=== PATIENT | female | born 1955 | race Caucasian/White ===

== ENCOUNTER 2020-12-25 09:52 | Emergency (ER) | payer MEDICARE, SELFPAY ==
[2020-12-25 10:23] VITALS: BP 129/76; PULSE 72; RESP 16; TEMP 36.6; O2SAT 99
--- NOTE | 2020-12-25 10:42 | ED.URI ---
HPI - URI/Sore Throat General Chief Complaint: Upper Respiratory Infection Stated Complaint: Cough/Tightness in Chest/Runny Nose Time Seen by Provider: 12/25/20 10:42 Source: patient Mode of arrival: ambulatory Limitations: no limitations History of Present Illness HPI Narrative: Christy Golden is a 65 yo female with a PMH of GERD, depression,IBS, HTN, anxiety, who comes to [facility] with a runny nose and congestion, coughing x4 days. States he wanted to be evaluated for Covid and she called to her primary care office Related Data Home Medications Medication Instructions Recorded Confirmed benztropine 0.5 mg PO DAILY 12/25/20 12/25/20 buspirone 5 mg PO DAILY 12/25/20 12/25/20 citalopram 10 mg PO DAILY 12/25/20 12/25/20 citalopram 40 mg PO DAILY 12/25/20 12/25/20 esomeprazole magnesium 20 mg PO DAILY 12/25/20 12/25/20 hydrocodone-acetaminophen 7.5 tablet PO DIRECTED PRN 12/25/20 12/25/20 linaclotide [Linzess] 145 mcg PO DAILY 12/25/20 12/25/20 meloxicam 7.5 mg PO DAILY 12/25/20 12/25/20 propranolol 20 mg PO DAILY 12/25/20 12/25/20 risperidone 1 mg PO DAILY 12/25/20 12/25/20 topiramate 50 mg PO DAILY 12/25/20 12/25/20 trazodone 100 mg PO DAILY 12/25/20 12/25/20 Allergies Allergy/AdvReac Type Severity Reaction Status Date / Time No Known Drug Allergies Allergy Verified 03/28/13 15:19 Review of Systems Review of Systems: Narrative: CONSTITUTIONAL: Denies fever, chills, sweats. EYES: Denies visual changes, redness, discharge. ENT: has rhinorrhea, has congestion, has sore throat, no otalgia. CARDIOVASCULAR: Denies chest pain, palpitations, edema. RESPIRATORY: Denies dyspnea, wheezing, cough GASTROINTESTINAL: Denies abdominal pain, nausea, vomiting, diarrhea. GENITOURINARY: Denies dysuria, hematuria, abnormal discharge SKIN: Denies rash or itching. NEUROLOGIC: Denies numbness, or focal weakness. PSYCHIATRIC: Denies anxiety or depression. PMFSH Past Medical History Medical History Anxiety Depression Hypertension IBS (irritable bowel syndrome) PTSD (post-traumatic stress disorder) Family History Family History Mother Family history of chronic obstructive pulmonary disease Father Family history of lung cancer Social History Social History (Updated 12/25/20 @ 10:53 by Liz Ulloa CNP) Smoking status: Former smoker Alcohol intake: never Gender identity (if verbalized by the patient): Female Comments At time of signature, I agree with nursing past medical, surgical, social and family history. There is no relevant family history pertinent to the presenting complaint. Exam Narrative: Exam Narrative: GENERAL: This is a well-nourished, well-developed patient, in mild distress. HEAD: normocephalic, atraumatic. EYES: Sclera clear/white. Vision is grossly intact. EARS: External ears normal, auditory canals clear and without drainage, TMs normal without perforation. Hearing grossly intact. NOSE: External nose normal with nasal discharge, mild erythema, nares without red, has rhinorrhea. THROAT: Mucous membranes moist, posterior pharynx erythema with no exudate NECK: Neck supple, non-tender CARDIOVASCULAR: Regular rate and rhythm without murmurs, gallops, or rubs. RESPIRATORY: Clear to auscultation. Breath sounds equal bilaterally. No wheezes, rales, or rhonchi. GASTROINTESTINAL: Abdomen soft, non-tender, SKIN: warm, intact with no suspicious lesions or rash, good texture and turgor. NEURO: awake, alert, and oriented to person, place and time. There were no obvious focal neurologic abnormalities. Steady gait;Fine Bilateral tremor EXTREMITIES: Normal range of motion. BACK: Nontender without deformity Course Course Emergency Course: Patient comes here for assessment of congestion sore throat for dwindles noticed x4 days Rapid Covid test is negative Covid for PCR sent Patient advised to jasmin
[2020-12-26 08:27] LABS: SARS-CoV-2 RNA PCR Negative
== END 2020-12-25 11:04 | disposition home or self-care (01) ==
PROVIDERS: Emergency Provider Nurse Practitioner; PCP Nurse Practitioner Family
DX: B34.9 Viral infection, unspecified (principal); Z20.822 Contact with and (suspected) exposure to COVID-19; F41.9 Anxiety disorder, unspecified; F32.9 Major depressive disorder, single episode, unspecified; F43.10 Post-traumatic stress disorder, unspecified; K21.9 Gastro-esophageal reflux disease without esophagitis; I10 Essential (primary) hypertension
CPT/HCPCS: 87426; 99203; C9803; G0463; U0003; U0005

== ENCOUNTER 2021-06-23 13:49 | Emergency (ER) | payer MEDICARE, SELFPAY | END 2021-06-23 13:50 | disposition left against medical advice (07) | LOC: EXPBETH 13:52 | PROVIDERS: Emergency Provider Nurse Practitioner; PCP Nurse Practitioner Family | DX: Z53.21 Procedure and treatment not carried out due to patient leaving prior to being seen by health care provider (principal) | CPT/HCPCS: 99199 ==

== ENCOUNTER 2022-08-24 14:37 | Emergency (ER) | payer MEDICARE, SELFPAY ==
[2022-08-24 14:52] VITALS: BP 109/73; PULSE 79; RESP 18; TEMP 37; O2SAT 99
--- NOTE | 2022-08-24 15:17 | ED.URI ---
HPI - URI/Sore Throat General Chief Complaint: Upper Respiratory Infection Stated Complaint: Chest Congestion/Cough Time Seen by Provider: 08/24/22 15:17 Source: patient Mode of arrival: ambulatory Limitations: no limitations History of Present Illness HPI Narrative: 67 y/o female presented for c/o cough and congestion for one week. Endorses 'burning' sensation in mid upper chest, worse with cough. Endorses occasional headache. Denies sob, n/v/d/f/c. Pt smokes 1/2ppd. hx copd. Not taking anything for symptoms. She is taking scheduled inhaler for copd. Related Data Home Medications Medication Instructions Recorded Confirmed benztropine 0.5 mg tablet 0.5 mg PO DAILY 12/25/20 08/24/22 buspirone 5 mg tablet 5 mg PO DAILY 12/25/20 08/24/22 citalopram 10 mg tablet 10 mg PO DAILY 12/25/20 08/24/22 citalopram 40 mg tablet 40 mg PO DAILY 12/25/20 08/24/22 esomeprazole magnesium 20 mg 20 mg PO DAILY 12/25/20 08/24/22 capsule,delayed release hydrocodone 7.5 mg-acetaminophen 7.5 tablet PO DIRECTED PRN Pain 12/25/20 08/24/22 325 mg tablet linaclotide 145 mcg capsule 145 mcg PO DAILY 12/25/20 08/24/22 (Linzess) meloxicam 7.5 mg tablet 7.5 mg PO DAILY 12/25/20 08/24/22 propranolol 20 mg tablet 20 mg PO DAILY 12/25/20 08/24/22 risperidone 1 mg tablet 1 mg PO DAILY 12/25/20 08/24/22 topiramate 50 mg tablet 50 mg PO DAILY 12/25/20 08/24/22 trazodone 100 mg tablet 100 mg PO DAILY 12/25/20 08/24/22 Allergies Allergy/AdvReac Type Severity Reaction Status Date / Time iron Allergy Unknown Verified 08/24/22 14:51 Review of Systems Review of Systems: CONSTITUTIONAL: Denies body aches, fever, chills, or sweats. ENT: Denies sore throat, or otalgia. CARDIOVASCULAR: Denies chest pain, palpitations, or edema. RESPIRATORY: Reports cough, denies sob, wheezing. MUSCULOSKELETAL: Denies back pain, joint pain, or myalgia. NEUROLOGIC: Denies numbness, tingling, or weakness. All systems reviewed & are unremarkable except as noted in HPI and below PMFSH Past Medical History Medical History Anxiety Depression Hypertension IBS (irritable bowel syndrome) PTSD (post-traumatic stress disorder) Family History Family History Mother Family history of chronic obstructive pulmonary disease Father Family history of lung cancer Social History Social History Smoking status: Former smoker Alcohol intake: never Gender identity (if verbalized by the patient): Female Comments At time of signature, I have reviewed and agree with nursing past medical, surgical, social and family history unless otherwise noted. Please see nursing chart for further information. There is no relevant family history pertinent to the presenting complaint Exam Narrative: GENERAL: Well-appearing EYES: EOMI. No redness or drainage. Conjunctivae normal. ENT: Mucous membranes pink and moist. No rhinorrhea. TMs normal bilaterally. Throat normal. Uvula midline. CHEST: No respiratory distress. diminished to all nguyen. Frequent dry deep nonproductive cough HEART: Regular rate and rhythm. SKIN: Warm, dry, no rash. Capillary refill normal. NEURO: Alert and oriented x3. Gait steady. Course Course Emergency Course: Patient is aware of diagnosis, understands and agrees to treatment plan. Anticipatory guidance given. Patient agrees to follow-up as directed and is aware of reasons to seek care at the emergency department. Portions of this record may have been created with voice recognition software Level of Care: Express Care Visit Vital Signs Vital signs: Vital Signs Temperature 98.6 F 08/24/22 14:52 Pulse Rate 79 08/24/22 14:52 Respiratory Rate 18 08/24/22 14:52 Blood Pressure 109/73 08/24/22 14:52 Pulse Oximetry 99 08/24/22 14:52 Oxygen Delivery Room Air
== END 2022-08-24 15:38 | disposition home or self-care (01) ==
PROVIDERS: Emergency Provider Nurse Practitioner Family; PCP Nurse Practitioner Family
DX: J40 Bronchitis, not specified as acute or chronic (principal); I10 Essential (primary) hypertension; F41.9 Anxiety disorder, unspecified; F32.A Depression, unspecified; J44.9 Chronic obstructive pulmonary disease, unspecified; F17.290 Nicotine dependence, other tobacco product, uncomplicated
CPT/HCPCS: 87804; 99213; G0463

== ENCOUNTER 2023-07-09 08:55 | Emergency (ER) | payer MEDICARE, SELFPAY ==
--- NOTE | ~2023-07-09 | XR_ITS ---
XR foot RT min 3V DATE: 07/09/2023 09:15 INDICATION: Fall down stairs. Third through fifth metacarpophalangeal joint pain TECHNIQUE: 4 views COMPARISON: None FINDINGS: There is mild to moderate osteoarthritic arthritis at the first metatarsophalangeal joint. Prominent plantar calcaneal enthesopathy. There is slight posterior calcaneal enthesopathy. No fracture or dislocation, periosteal reaction or bone destruction is detected. IMPRESSION: Calcaneal enthesopathy Osteoarthritis at first metatarsophalangeal joint No fracture or dislocation is detected Reviewed, dictated and finalized at location A.
[2023-07-09 09:05] VITALS: BP 117/62; PULSE 81; RESP 18; TEMP 36.7; O2SAT 100
--- NOTE | 2023-07-09 09:52 | ED.LOWEXIN ---
HPI - Extremity Injury (Lower) General Chief Complaint: Extremity Injury, Lower Stated Complaint: Right Foot Injury History of Present Illness HPI Narrative: Patient presents with an injury to her right foot. Patient states she missed a step and rolled her right foot and ankle. Pain across the top of her foot. No deformity no bruising no swelling noted. Related Data Home Medications Medication Instructions Recorded Confirmed benztropine 0.5 mg tablet 0.5 mg PO DAILY 12/25/20 07/09/23 buspirone 5 mg tablet 5 mg PO DAILY 12/25/20 07/09/23 citalopram 10 mg tablet 10 mg PO DAILY 12/25/20 07/09/23 citalopram 40 mg tablet 40 mg PO DAILY 12/25/20 07/09/23 esomeprazole magnesium 20 mg 20 mg PO DAILY 12/25/20 07/09/23 capsule,delayed release hydrocodone 7.5 mg-acetaminophen 7.5 tablet PO DIRECTED PRN Pain 12/25/20 07/09/23 325 mg tablet linaclotide 145 mcg capsule 145 mcg PO DAILY 12/25/20 07/09/23 (Linzess) meloxicam 7.5 mg tablet 7.5 mg PO DAILY 12/25/20 07/09/23 propranolol 20 mg tablet 20 mg PO DAILY 12/25/20 07/09/23 risperidone 1 mg tablet 1 mg PO DAILY 12/25/20 07/09/23 topiramate 50 mg tablet 50 mg PO DAILY 12/25/20 07/09/23 trazodone 100 mg tablet 100 mg PO DAILY 12/25/20 07/09/23 atogepant 30 mg tablet (Qulipta) 60 mg PO DAILY 07/09/23 07/09/23 hydroxyzine HCl 50 mg tablet 50 mg PO HS 07/09/23 07/09/23 Allergies Allergy/AdvReac Type Severity Reaction Status Date / Time iron Allergy Unknown Verified 07/09/23 09:04 Review of Systems Review of Systems: CONSTITUTIONAL: Denies fever, chills, or sweats. EYES: Denies visual changes, redness, or discharge. ENT: Denies rhinorrhea, congestion, sore throat, or otalgia. CARDIOVASCULAR: Denies chest pain, palpitations, or edema. RESPIRATORY: Denies cough or dyspnea. GASTROINTESTINAL: Denies abdominal pain, nausea, vomiting, or diarrhea. GENITOURINARY: Denies dysuria or hematuria. SKIN: Denies rash or itching. MUSCULOSKELETAL: Denies back pain, joint pain, or myalgia. NEUROLOGIC: Denies headache, numbness, or weakness. PSYCHIATRIC: Denies anxiety or depression. [facility] Past Medical History Medical History Anxiety Depression Hypertension IBS (irritable bowel syndrome) PTSD (post-traumatic stress disorder) Family History Family History Mother Family history of chronic obstructive pulmonary disease Father Family history of lung cancer Social History Social History Smoking status: Former smoker Alcohol intake: never Gender identity (if verbalized by the patient): Female Comments At time of signature, agree with nursing past medical, surgical, social and family history. There is no relevant family history pertinent to the presenting complaint Exam Narrative: GENERAL: Well-appearing, well-nourished, and in no acute distress. HEAD: Normocephalic, atraumatic. EYES: PERRLA and EOMI. ENT: Nares clear, no rhinorrhea or epistaxis. Mucous membranes moist. NECK: Supple. CHEST: Clear to auscultation. No respiratory distress. HEART: Regular rate and rhythm. No murmur heard. Normal peripheral pulses. ABDOMEN: Soft, nontender, nondistended, normal active bowel sounds. EXTREMITIES: Normal range of motion. No edema. Foot exam ANKLE EXAM pain to the lateral side of right foot and across the top of the foot. SKIN INTACT. NORMAL DP PULSE, NORMAL CAP REFILL. NORMAL SENSATION. SKIN: Warm, dry, no rash. NEURO: No focal deficits. Alert and oriented x3. [place] Coma Scale Eye Opening: Spontaneous 4 [place] Coma Scale Motor: Obeys Commands 6 [place] Coma Scale Verbal: Oriented 5 [place] Coma Scale Total 15 Course Course Level of Care: Express Care Visit Vital Signs Vital signs: Vital Signs Temperature 36.7 C 07/09/23 09:05 Pulse Rate 81 07/09/23 09:05 Respiratory Rate 18 09/
== END 2023-07-09 10:00 | disposition home or self-care (01) ==
PROVIDERS: Emergency Provider Nurse Practitioner Family
DX: S90.31XA Contusion of right foot, initial encounter (principal); X50.9XXA Other and unspecified overexertion or strenuous movements or postures, initial encounter; Z87.891 Personal history of nicotine dependence; I10 Essential (primary) hypertension; F41.9 Anxiety disorder, unspecified; F32.A Depression, unspecified; F43.10 Post-traumatic stress disorder, unspecified
CPT/HCPCS: 73630; 99213; G0463

== ENCOUNTER 2024-08-25 11:32 | Emergency (ER) | payer MEDICARE, SELFPAY ==
[2024-08-25 11:40] VITALS: BP 110/76; PULSE 96; RESP 24; TEMP 37; O2SAT 98
--- NOTE | 2024-08-25 11:52 | ED.URI ---
HPI - URI/Sore Throat General Chief Complaint: Upper Respiratory Infection Stated Complaint: cough/headache/throat/ears/eyes Time Seen by Provider: 08/25/24 11:53 Source: patient, RN notes reviewed and old records reviewed Mode of arrival: ambulatory Limitations: no limitations History of Present Illness HPI Narrative: 69year old female who presents to [facility] care with complaints of 3 day history of cough, headache body aches,ear pain, eye pain and throat pain which she thinks is related to cough. States that she has dnoted some shortness of breath and wheezing has history of COPD. Patient reports that she had some nasal congestion with drainage at start of symptoms. Patient reports that she had 100F temp this morning has taken Tylenol and has been using her inhaler of Albuterol.Patient reports that she has been exposed to someone who was recently diagnosed with Whooping cough.Patient is poor historian is on numerous medications. MD elicited complaint: cough, sore throat, rhinorrhea, nasal congestion and other (SOB, headache ear pain, eye pain, and body aches.) Pertinent past history: COPD Onset (ago): day(s) (3) Severity: moderate Able to tolerate fluids by mouth: Yes Treatments prior to arrival: acetaminophen and other (Albuterol inhaler) Related Data Home Medications Medication Instructions Recorded Confirmed benztropine 0.5 mg tablet 0.5 mg PO DAILY 12/25/20 08/25/24 citalopram 40 mg tablet 40 mg PO DAILY 12/25/20 08/25/24 esomeprazole magnesium 20 mg 20 mg PO DAILY 12/25/20 08/25/24 capsule,delayed release hydrocodone 7.5 mg-acetaminophen 7.5 tablet PO DIRECTED PRN Pain 12/25/20 08/25/24 325 mg tablet linaclotide 145 mcg capsule 145 mcg PO DAILY 12/25/20 08/25/24 (Linzess) meloxicam 7.5 mg tablet 7.5 mg PO DAILY 12/25/20 08/25/24 propranolol 20 mg tablet 20 mg PO DAILY 12/25/20 08/25/24 topiramate 50 mg tablet 50 mg PO DAILY 12/25/20 08/25/24 hydroxyzine HCl 50 mg tablet 50 mg PO HS 07/09/23 08/25/24 albuterol sulfate 90 mcg/actuation See Rx Instructions .Route 08/25/24 08/25/24 aerosol inhaler .COMPLEX PRN sob atogepant 60 mg tablet (Qulipta) 60 mg PO DAILY 08/25/24 08/25/24 bupropion HCl 100 mg tablet 200 mg PO DAILY 08/25/24 08/25/24 buspirone 30 mg tablet 30 mg PO DAILY 08/25/24 08/25/24 celecoxib 200 mg capsule See Rx Instructions .Route .COMPLEX 08/25/24 08/25/24 dicyclomine 20 mg tablet 20 mg PO BID 08/25/24 08/25/24 donepezil 10 mg tablet 10 mg PO DAILY 08/25/24 08/25/24 pantoprazole 40 mg tablet,delayed 40 mg PO DAILY 08/25/24 08/25/24 release primidone 250 mg tablet 250 mg PO HS 08/25/24 08/25/24 risperidone 2 mg tablet See Rx Instructions .Route .COMPLEX 08/25/24 08/25/24 trazodone 150 mg tablet 150 mg PO DAILY 08/25/24 08/25/24 Allergies Allergy/AdvReac Type Severity Reaction Status Date / Time iron Allergy Unknown Verified 07/09/23 09:04 Review of Systems Review of Systems: CONSTITUTIONAL: Reports malaise, chills, sweats, or fever. EYES: Denies visual changes, redness, or discharge. ENT: Reports rhinorrhea, congestion, sinus pain, otalgia and mild sore throat. CARDIOVASCULAR: Denies chest pain, palpitations, or edema. RESPIRATORY: Reports cough.? Reports dyspnea. GASTROINTESTINAL: Denies abdominal pain, nausea, vomiting, diarrhea SKIN: Denies rash or itching. MUSCULOSKELETAL: Reports myalgia. NEUROLOGIC: Reports headache. All systems reviewed & are unremarkable except as noted in HPI and below PMFSH Past Medical History Medical History (Updated 08/27/24 @ 15:59 by Estefani Harding NP) Anxiety Depression Essential tremor Hypertension IBS (irritable bowel syndrome) Insomnia Kidney stones Migraine PTSD (post-traumatic stress disorder) Surgical History Surgical History (Updated 08/27/24 @ 15:56 by Estefani Harding NP) H/O shoulder surgery H/O Spinal surgery History of cholecystectomy Family History Family History Mother Family history of chronic obstructive pulmonary disease Father Family history of lung cancer Social History Social History (Updated 08/27/24 @ 16:01 by Estefani Harding NP) Smoking packs per day: 1 Smoking cigarettes per day: 20.0 Years smoked: 30 Smoking pack-years: 30.00 Smoking status: Former smoker Tobacco type: cigarettes Additional smoking assessment comments: Reports quit 2 month ago Alcohol intake: never Substance use type: opiates Other substance usage details: pain control Living arrangements: with family Gender identity (if verbalized by the patient): Female Comments At time of signature, agree with nursing past medical, surgical, social and family history. There is no relevant family history pertinent to the presenting complaint Exam Narrative: GENERAL: chronic ill -appearing, well-nourished, and in no acute distress. HEAD: Normocephalic EYES: PERRLA, conjunctivae clear ENT: Nares clear, turbinates edematous and erythematous, clear discharge, sinus pressure headache,. Mucous membranes moist. TM pearly saenz with dull light reflex bilaterally; no tragal tenderness. Oropharynx erythematous without lesions. Tonsils not enlarged and without exudate, no drooling, no hoarseness, no trismus, uvula midline, post nasal drainage. NECK: Supple. No lymphadenopathy CHEST: scattered wheezing on auscultation,breath sounds equal. positive wheezing, rhonchi, rales, or stridor. No respiratory distress, speaks in full sentences.cough, SAO2 98% on room air HEART: Regular rate and rhythm. No murmur heard. SKIN: Warm, dry, no rash. NEURO: Alert and oriented x3. PSYCH: Normal mood and affect Course Course Emergency Course: Patient is aware of diagnosis, understands and agrees to treatment plan.? Anticipatory guidance given.? Patient agrees to follow-up as directed and is aware of reasons to seek care at the emergency department. Portions of this record may have been created with voice recognition software Level of Care: Express Care Visit Vital Signs Vital signs: Vital Signs Temperature 37.0 C 08/25/24 11:40 Pulse Rate 96 08/25/24 11:40 Respiratory Rate 24 H 08/25/24 11:40 Blood Pressure 110/76 08/25/24 11:40 Pulse Oximetry 98 08/25/24 11:40 Oxygen Delivery Room Air 08/25/24 11:40 Temperature 37.0 C 08/25/24 11:59 Pulse Rate 96 08/25/24 11:59 Respiratory Rate 24 H 08/25/24 11:59 Blood Pressure 110/76 08/25/24 11:59 Pulse Oximetry 98 08/25/24 11:59 Oxygen Delivery Room Air 08/25/24 11:59 Reviewed MDM - URI/Sore Throat MDM Narrative Medical decision making narrative: Differential diagnosis considered: Bynum virus, strep pharyngitis, allergic rhinitis, upper respiratory tract infection, sinusitis, rhinosinusitis, nasopharyngitis. viral pharyngitis, otitis media, otitis externa, pneumonia, bronchitis, viral cough syndrome, viral syndrome, and influenza.? Exam findings show no acute concerns or changes; patient is non-toxic appearing and is in no distress.? Patient is appropriate for outpatient treatment and follow-up. Differential Diagnosis Differential diagnosis: Likely upper respiratory infection, viral infection, bronchitis, influenza and other (cough, COPD, COVID) Medical Records Attestation: I reviewed the patient's medical records. Lab Data Attestation: I reviewed the patient's lab results. Lab results narrative: COVID antigen negative, Influenza A negative, Influenza B negative Labs: Lab Results 08/25/24 Range/Units 11:54 POC Influenza A Ag Negative (Negative) POC Influenza B Ag Negative (Negative) POC SARS CoV-2 Ag Negative (Negative) reviewed Critical Care Time Critical Care Time Critical Care Time: No Discharge Plan Discharge Clinical Impression: Bronchitis Patient Disposition: Home, Self-Care Condition: Stable Instructions: Antibiotic Form, Acute Bronchitis (ED) Additional Instructions: Increase fluids especially juices and water [id number] cough and cold medicine of your choice for your symptoms Zyrtec,Claritin, or Dominique daily Continue your inhaler/nebulizer as directed Steroids as directed--take with food heat to the face 20-30 minutes 4-6 times a day for pain Salt water gargles, throat lozenges or throat sprays as desired Antibiotic as directed--finished the medication Tylenol or Ibuprofen for any fever or pain Prescriptions: New prednisone 20 mg tablet 20 mg PO BID Qty: 10 0RF amoxicillin 500 mg tablet 500 mg PO Q12H Qty: 21 0RF No Action bupropion HCl 100 mg tablet 200 mg PO DAILY risperidone 2 mg tablet See Rx Instructions .ROUTE .COMPLEX Rx Instructions: as prescribed trazodone 150 mg tablet 150 mg PO DAILY buspirone 30 mg tablet 30 mg PO DAILY primidone 250 mg tablet 250 mg PO HS celecoxib 200 mg capsule See Rx Instructions .ROUTE .COMPLEX Rx Instructions: as prescribed albuterol sulfate 90 mcg/actuation HFA aerosol inhaler See Rx Instructions .ROUTE .COMPLEX PRN (Reason: sob) Rx Instructions: as prescribed Qulipta 60 mg tablet 60 mg PO DAILY dicyclomine 20 mg tablet 20 mg PO BID pantoprazole 40 mg tablet,delayed release (DR/EC) 40 mg PO DAILY donepezil 10 mg tablet 10 mg PO DAILY benztropine 0.5 mg tablet 0.5 mg PO DAILY citalopram 40 mg tablet 40 mg PO DAILY meloxicam 7.5 mg tablet 7.5 mg PO DAILY hydrocodone-acetaminophen 7.5-325 mg tablet 7.5 tablet PO DIRECTED PRN (Reason: Pain) propranolol 20 mg tablet 20 mg PO DAILY esomeprazole magnesium 20 mg capsule,delayed release(DR/EC) 20 mg PO DAILY topiramate 50 mg tablet 50 mg PO DAILY Linzess 145 mcg capsule 145 mcg PO DAILY hydroxyzine HCl 50 mg tablet 50 mg PO HS Follow-up/Referrals: PHYSICIAN NOT ON STAFF,NONSTAFF [Primary Care Provider] - Time of Disposition: 13:14 Quality [place] Coma Scale Eyes: Open Verbal: Oriented and Alert Motor: Follows Commands [place] Coma Total Score: 15
[2024-08-25 11:59] VITALS: BP 110/76; PULSE 96; RESP 24; TEMP 37; O2SAT 98
[2024-08-25 12:31] LABS: EDCOVIDSCREEN Negative (Negative); EDINFLUASCREEN Negative (Negative); EDINFLUBSCREEN Negative (Negative)
== END 2024-08-25 13:15 | disposition home or self-care (01) ==
PROVIDERS: Emergency Provider Registered Nurse
DX: J40 Bronchitis, not specified as acute or chronic (principal); Z20.822 Contact with and (suspected) exposure to COVID-19; J44.9 Chronic obstructive pulmonary disease, unspecified; I10 Essential (primary) hypertension; F41.9 Anxiety disorder, unspecified; F32.A Depression, unspecified; F43.10 Post-traumatic stress disorder, unspecified; Z87.891 Personal history of nicotine dependence
CPT/HCPCS: 87426; 87804; 99213; G0463

== ENCOUNTER 2024-12-17 12:18 | Emergency (ER) | payer MEDICARE, SELFPAY ==
--- NOTE | ~2024-12-17 | XR_ITS ---
EXAMINATION: XR sacrum coccyx min 2V DATE: 12/17/2024 12:57 INDICATION: Tailbone pain. Fall. TECHNIQUE: 3 views of the sacrum and coccyx were obtained. COMPARISON: None. FINDINGS: There is lumbar dextrocurvature. There are changes of anterior fusion procedure at L4-L5 wi th instrumentation. The sacroiliac joints are normal. IMPRESSION: 1. No fracture. Reviewed, dictated and finalized at location A. R SITE ASSESSMENT SPECIALIST IMPRESSION: 1. No fracture.
--- NOTE | ~2024-12-17 | XR_ITS ---
HISTORY: pain s/p fall COMPARISON: None TECHNIQUE: 3 views of the right ribs were performed along with a frontal view of the chest FINDINGS: No acute displaced fracture is appreciated. The cardiac mediastinal silhouette is unremarkable. The lungs are clear. Bone mineralization is age advanced IMPRESSION: No acute displaced right-sided rib fractures. The lungs are clear. Reviewed, dictated and finalized at location A. ENT TRANSPORTER
--- NOTE | ~2024-12-17 | XR_ITS ---
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 Superior lateral sclerosis of the bilateral femoral acetabular joint spaces are present consistent wi th osteoarthritis. Fixation hardware within the lower lumbar spine. Age advanced mineralization. IMPRESSION: Degenerative disease without acute fracture or dislocation Reviewed, dictated and finalized at location A. ESS CENTER ATTENDANT
[2024-12-17 12:29] VITALS: BP 132/77; PULSE 64; RESP 16; TEMP 36.7; O2SAT 99
--- NOTE | 2024-12-17 12:45 | PC.NURSE ---
PT with complaints of tailbone pain, mid back pain, left elbow pain and right rib pain. NO obvious injury observed. Pt moving slowly with position change.
--- NOTE | 2024-12-17 13:14 | ED.GENADULT ---
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 She slipped on a towel at home and fell down ten steps that are carpeted. She hit her head. No LOC. She is not on blood thinners. She now has skin tears to dorsal aspect of left hand. She reports pain in her right posterior ribs, right hip and coccyx. She rates her pain as 9/10. Denies loss of ROM. She has not taken any medication for her symptoms. She is up to date on tetanus. Related Data Home Medications ?Medication ?Instructions ?Recorded ?Confirmed ?Last Taken ?Type citalopram 40 mg tablet 40 mg PO DAILY 12/25/20 08/25/24 Unknown History linaclotide 145 mcg capsule 145 mcg PO DAILY 12/25/20 08/25/24 Unknown History (Linzess) propranolol 20 mg tablet 20 mg PO DAILY 12/25/20 08/25/24 Unknown History topiramate 50 mg tablet 50 mg PO DAILY 12/25/20 08/25/24 Unknown History hydroxyzine HCl 50 mg tablet 50 mg PO HS 07/09/23 08/25/24 Unknown History albuterol sulfate 90 mcg/actuation See Rx Instructions .Route 08/25/24 08/25/24 Unknown History aerosol inhaler .COMPLEX PRN sob atogepant 60 mg tablet (Qulipta) 60 mg PO DAILY 08/25/24 08/25/24 Unknown History bupropion HCl 100 mg tablet 200 mg PO DAILY 08/25/24 08/25/24 Unknown History buspirone 30 mg tablet 30 mg PO DAILY 08/25/24 08/25/24 Unknown History celecoxib 200 mg capsule See Rx Instructions .Route .COMPLEX 08/25/24 08/25/24 Unknown History dicyclomine 20 mg tablet 20 mg PO BID 08/25/24 08/25/24 Unknown History donepezil 10 mg tablet 10 mg PO DAILY 08/25/24 08/25/24 Unknown History pantoprazole 40 mg tablet,delayed 40 mg PO DAILY 08/25/24 08/25/24 Unknown History release primidone 250 mg tablet 250 mg PO HS 08/25/24 08/25/24 Unknown History risperidone 2 mg tablet See Rx Instructions .Route .COMPLEX 08/25/24 08/25/24 Unknown History trazodone 150 mg tablet 150 mg PO DAILY 08/25/24 08/25/24 Unknown History benzonatate 200 mg capsule mg PO 12/17/24 Unknown History budesonide-formoterol inhalation 12/17/24 Unknown History uwrxijjaqpt-rctgdheue-ulltcbsu inhalation 12/17/24 Unknown History lasmiditan 50 mg tablet (Reyvow) mg PO 12/17/24 Unknown History oxycodone-acetaminophen 5 mg-325 tablet 12/17/24 Unknown History mg tablet Allergies Allergy/AdvReac Type Severity Reaction Status Date / Time iron Allergy Unknown Verified 12/17/24 12:33 Review of Systems Review of Systems: CONSTITUTIONAL: Denies fever, chills, or sweats. EYES: Denies visual changes, redness, or discharge. ENT: Denies rhinorrhea, congestion, sore throat, or otalgia. CARDIOVASCULAR: Denies chest pain, palpitations, or edema. RESPIRATORY: Denies cough or dyspnea. GASTROINTESTINAL: Denies abdominal pain, nausea, vomiting, or diarrhea. GENITOURINARY: Denies dysuria or hematuria. SKIN: Reports skin tears to the left hand MUSCULOSKELETAL: Reports pain in coccyx, right hip, left elbow and right posterior ribs NEUROLOGIC: Denies headache, numbness, dizziness, or weakness. PSYCHIATRIC: Denies anxiety or depression. [facility] Past Medical History Medical History Essential tremor Insomnia Kidney stones Migraine IBS (irritable bowel syndrome) PTSD (post-traumatic stress disorder) Depression Anxiety Hypertension Surgical History Surgical History H/O Spinal surgery H/O shoulder surgery History of cholecystectomy Family History Family History Mother Family history of chronic obstructive pulmonary disease Father Family history of lung cancer Social History Social History Smoking packs per day: 1 Smoking cigarettes per day: 20.0 Years smoked: 30 Smoking pack-years: 30.00 Smoking status: Former smoker Tobacco type: cigarettes Additional smoking assessment comments: Reports quit 2 month ago Alcohol intake: never Substance use type: opiates Other substance usage details: pain control Living arrangements: with family Gender identity (if verbalized by the patient): Female Exam Narrative: GENERAL: Well-appearing, well-nourished, and in no acute distress. HEAD: Normocephalic, atraumatic. EYES: PERRLA and EOMI. ENT: Nares clear, no rhinorrhea or epistaxis. Mucous membranes moist. Oropharynx without tonsillar hypertrophy exudate or other lesions. Bilateral TMs pearly saenz nonbulging NECK: Supple. No adenopathy or masses. No carotid bruits or JVD CHEST: Clear to auscultation. No respiratory distress. No wheezes rales or rhonchi HEART: Regular rate and rhythm. No murmur heard. Normal peripheral pulses. ABDOMEN: Soft, nontender, nondistended, normal active bowel sounds. BACK: There is tenderness over the right posterior ribs and the coccyx. EXTREMITIES: Full range of motion of the left elbow. No crepitus or deformity. No point tenderness. There is tenderness over the right lateral hip SKIN: There to skin tears to the dorsal aspect of the left hand there approximately 2 cm in size NEURO: No focal deficits. Alert and oriented x3. PSYCH: Normal mood and affect. Course Course Emergency Course: This is a 69-year-old female who presented for evaluation after experiencing a fall just prior to arrival. X-rays were negative for fracture. Skin tears were cleaned and covered with dressing. Pt tolerated well. I recommended she follow up with primary provider and go to the ER for worsening symptoms. Pt in agreement with plan of care. Level of Care: Express Care Visit Vital Signs Vital signs: Vital Signs Temperature 36.7 C 12/17/24 12: Pulse Rate 64 12/17/24 12:29 Respiratory Rate 16 12/17/24 12: Blood Pressure 132/77 12/17/24 12:29 Pulse Oximetry 99 12/17/24 12:29 Oxygen Delivery Room Air 12/17/24 12: Temperature 36.7 C 12/17/24 12: Pulse Rate 64 12/17/24 12:29 Respiratory Rate 16 12/17/24 12: Blood Pressure 132/77 12/17/24 12:29 Pulse Oximetry 99 12/17/24 12:29 Oxygen Delivery Room Air 12/17/24 12:29 Medical Decision Making Vital Signs Vital Signs: Vital Signs Temperature 36.7 C 12/17/24 12:29 Pulse Rate 64 12/17/24 12:29 Respiratory Rate 16 12/17/24 12:29 Blood Pressure 132/77 12/17/24 12:29 Pulse Oximetry 99 12/17/24 12:29 Oxygen Delivery Room Air 12/17/24 12:29 Temperature 36.7 C 12/17/24 12:29 Pulse Rate 64 12/17/24 12:29 Respiratory Rate 16 12/17/24 12:29 Blood Pressure 132/77 12/17/24 12:29 Pulse Oximetry 99 12/17/24 12:29 Oxygen Delivery Room Air 12/17/24 12:29 Imaging Data Radiologist's impression: EXAMINATION: XR sacrum coccyx min 2V DATE: 12/17/2024 12:57 INDICATION: Tailbone pain. Fall. TECHNIQUE: 3 views of the sacrum and coccyx were obtained. COMPARISON: None. FINDINGS: There is lumbar dextrocurvature. There are changes of anterior fusion procedure at L4-L5 with instrumentation. The sacroiliac joints are normal. IMPRESSION: 1. No fracture. HISTORY: pain s/p fall COMPARISON: None TECHNIQUE: 3 views of the right ribs were performed along with a frontal view of the chest FINDINGS: No acute displaced fracture is appreciated. The cardiac mediastinal silhouette is unremarkable. The lungs are clear. Bone mineralization is age advanced IMPRESSION: No acute displaced right-sided rib fractures. The lungs are clear. 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 Superior lateral sclerosis of the bilateral femoral acetabular joint spaces are present consistent with osteoarthritis. Fixation hardware within the lower lumbar spine. Age advanced mineralization. IMPRESSION: Degenerative disease without acute fracture or dislocation Discharge Plan Discharge Clinical Impression: Contusion of rib, Coccyx contusion, Contusion of hip, right, Skin tear of left hand without complication Patient Disposition: Home, Self-Care Condition: Stable Instructions: Antibiotic Form, Contusion in Adults (ED), Skin Tear (ED), Fall Prevention (ED) Patient Language: Japanese Prescriptions: No Action bupropion HCl 100 mg tablet 200 mg PO DAILY risperidone 2 mg tablet See Rx Instructions .ROUTE .COMPLEX Rx Instructions: as prescribed trazodone 150 mg tablet 150 mg PO DAILY buspirone 30 mg tablet 30 mg PO DAILY primidone 250 mg tablet 250 mg PO HS celecoxib 200 mg capsule See Rx Instructions .ROUTE .COMPLEX Rx Instructions: as prescribed albuterol sulfate 90 mcg/actuation HFA aerosol inhaler See Rx Instructions .ROUTE .COMPLEX PRN (Reason: sob) Rx Instructions: as prescribed Qulipta 60 mg tablet 60 mg PO DAILY dicyclomine 20 mg tablet 20 mg PO BID pantoprazole 40 mg tablet,delayed release (DR/EC) 40 mg PO DAILY donepezil 10 mg tablet 10 mg PO DAILY benzonatate 200 mg capsule PO oxycodone-acetaminophen 5-325 mg tablet Reyvow 50 mg tablet PO budesonide-formoterol [Symbicort] inhalation ocjdmhlithy-ggtxdgjex-jskyxxnv [Trelegy Ellipta] inhalation citalopram 40 mg tablet 40 mg PO DAILY propranolol 20 mg tablet 20 mg PO DAILY topiramate 50 mg tablet 50 mg PO DAILY Linzess 145 mcg capsule 145 mcg PO DAILY hydroxyzine HCl 50 mg tablet 50 mg PO HS Follow-up/Referrals: Dedrick Aguilar MD [Physician] - Time of Disposition: 13:12
--- OUTSIDE RECORDS SUMMARY | 2024-12-17 14:00 | XMS_ITS | Encounter Summary ---
Author Organization [facility] Address [address] [place] [address] Phone Care Team Providers Care Flatwork Catcher Name Role Phone Mac Sher MD Unavailable [phone] Micky Dickson MD Primary Care Provider Robert Mae MD Unavailable Maryann El APRN, KNUCKLER Unavailable + [phone] Germania Navarro APRN, QUALITY ASSURANCE INSPECTOR Unavailable Leny Morales MD Unavailable [phone] Silva Vicente MD Primary Care Provider [phone] Reason for Visit * Reason Comments Medication Refill Encounter Details Date Type Department Care Team (Late st Contact Info) Description 03/10/2024 Refill [facility] - Gastroenterology - [place] [address]2 [place] [address] Germania Navarro APRN, QUALITY ASSURANCE INSPECTOR [address] [place] [address] Medication Refill Social History Tobacco Use Types Packs/Day Years Used Date Smoking Tobacco: Every Day Cigarettes 0.5 25 Smokeless Tobacco: Never Comments:occassional Alcohol Use Standard Drinks/Week Comments Not Currently 0 (1 standard drink = 0.6 oz pur e alcohol) Sexually Active Control Partners Comments Not Currently Comments No Sex and Gender Information Value Date Recorded Sex Assigned at Female 06/05/2023 10:27 AM CDT Legal Sex Female 10:21 PM CDT Gender Identity Female 06/05/2023 10:27 AM CDT Sexual Orientation Not on file documented as of this encounter Miscellaneous Notes * Telephone Encounter - Monica Marcelo RN - 03/11/2024 9:11 AM CDT [facility] [place] for pediatric and adult patients. documented in this encounter Plan of Treatment Upcoming Encounters Date Type Department Care Team (Latest Contact Info) Description 12/30/2024 8:00 AM CDT [facility] 1 [place] [address] Kwadwo Montalvo MD [address] [address] 12/30/2024 8:00 AM CDT - 12/30/2024 8:30 AM CDT [facility] 1 [place] [address] Kwadwo Montalvo MD [address] [address] EGD 01/03/2025 11:30 AM CDT [facility] 1 [place] [address] Robert Mae MD #2 [place] [address] Discharge Disposition: Discharged to home or Selfcare 01/28/2025 10:45 AM CDT Office Visit [facility] - Pulmonology & Sleep Medicine - [place] [address]2 [place] [address] Robert Mae MD #2 [place] [address] 03/11/2025 10:30 AM CDT Office Visit [facility] - Neurology - [place] [address]2 [place] [address] Maryann El APRN, KNUCKLER [address] [place] [address] Scheduled Procedures Name Priority Associated Diagnoses Date/Ti me EGD ULCER OF THE ESOPHAGUS 12/30/2024 8:00 AM CDT documented as of this encounter Visit Diagnoses Not on filedocumented in this encounter Additional Health Concerns Infection Onset Date Last Indicated Resolved Time COVID - 19 09/03/2024 09/03/2024 09/03/2024 9:25 PM POLICY CHECKER documented as of this encounter Care Teams Flatwork Catcher Relationship Specialty Start Date End Date Micky Dickson MD [address] [place] [address] [address] [place] [address] PCP - General Family Medicine 09/25/23 07/04/24 Silva Vicente MD [address] [place] [address] [address] [place] [address] PCP - General Family Medicine 07/05/24 Mac Sher MD #[address] [place] [address] Consulting Physician Neurology 09/15/15 Robert Mae MD #[address] [place] [address] Consulting Physician Pulmonary Disease 10/27/22 Maryann El APRN, KNUCKLER [address] [place] [address] Nurse Practitioner Advanced Practice Nurse 12/21/22 Germania Navarro APRN, QUALITY ASSURANCE INSPECTOR [address] [place] [address] Nurse Practitioner Advanced Practice Nurse 10/04/23 Leny Morales MD #2 [place] [address] Consulting Physician Gastroenterology 01/19/23 documented as of this encounter
--- OUTSIDE RECORDS SUMMARY | 2024-12-17 14:00 | XMS_ITS | Encounter Summary ---
Author Organization [facility] Address [address] [place] [address] Phone Care Team Providers Care Metal Mold Dresser Name Role Phone Mac Sher MD Unavailable [phone] Micky Dickson MD Primary Care Provider Robert Mae MD Unavailable Maryann El APRN, RN MEDICAL SURGICAL Unavailable + [phone] Germania Navarro APRN, HELICOPTER PILOT INSTRUCTOR Unavailable Leny Morales MD Unavailable [phone] Silva Vicente MD Primary Care Provider [phone] Reason for Visit * Reason Comments Medication Refill Encounter Details Date Type Department Care Team (Late st Contact Info) Description 03/20/2024 Refill [facility] - Gastroenterology - [place] [address] [place] [address] Leny Morales MD [address] [place] [address] Medication Refill Social History Tobacco Use Types [...] Telephone Encounter - Monica Marcelo RN - 03/20/2024 10:49 AM CDT [facility] [place] [facility] standing order for pediatric and adult patients. documented in this encounter Plan of Treatment Upcoming Encounters Date Type Department Care Team (Latest Contact Info) Description 12/30/2024 8:00 AM CDT [facility] 1 [place] [phone] Kwadwo Montalvo MD [address] [address] 12/30/2024 8:00 AM CDT - 12/30/2024 8:30 AM CDT [facility] 1 [place] [address] Kwadwo Montalvo MD [address] [address] EGD 01/03/2025 11:30 AM CDT [facility] 1 [place] [address] Robert Mae MD #2 [place] [address] Discharge Disposition: Discharged to home or Selfcare 01/28/2025 10:45 AM CDT Office Visit [facility] - Pulmonology & Sleep Medicine [facility] #2 [facility] [place] [address] Robert Mae MD #2 [place] [address] 03/11/2025 10:30 AM CDT Office Visit [facility] - Neurology - [place] [address] [place] [address] Maryann El APRN, RN MEDICAL SURGICAL #[address] [place] [address] Scheduled Procedures Name Priority Associated Diagnoses Date/Ti me EGD ULCER OF THE ESOPHAGUS 12/30/2024 8:00 AM CDT documented as of this encounter Visit Diagnoses Not on filedocumented in this encounter Additional Health Concerns Infection Onset Date Last Indicated Resolved Time COVID - 19 09/03/2024 09/03/2024 09/03/2024 9:25 PM 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 documented as of this encounter Care Teams Metal Mold Dresser Relationship Specialty Start Date End Date Micky Dickson MD [address] [place] [address] [address] [place] [address] PCP - General Family Medicine 09/25/23 07/04/24 Silva Vicente MD [address] [place] [address] [address] [place] [address] PCP - General Family Medicine 07/05/24 Mac Sher MD #[address] [place] [address] Consulting Physician Neurology 09/15/15 Robert Mae MD #[address] [place] [address] Consulting Physician Pulmonary Disease 10/27/22 Maryann El, GATE TENDER, RN MEDICAL SURGICAL [address] [place] [address] Nurse Practitioner Advanced Practice Nurse 12/21/22 Germania Navarro APRN, HELICOPTER PILOT INSTRUCTOR #2 [place] [address] Nurse Practitioner Advanced Practice Nurse 10/04/23 Leny Morales MD #[address] [place] [address] Consulting Physician Gastroenterology 01/19/23 documented as of this encounter
--- OUTSIDE RECORDS SUMMARY | 2024-12-17 14:00 | XMS_ITS | Encounter Summary ---
Author Organization [facility] Address [address] [place] [address] Phone Care Team Providers Care Director Speech Language Name Role Phone Mac Sher MD Unavailable [phone] Micky Dickson MD Primary Care Provider [phone] Robert Mae MD Unavailable Maryann El APRN, ICE CREAM DISPENSER Unavailable + [phone] Germania Navarro APRN, SHEAR HELPER Unavailable Leny Morales MD Unavailable [phone] Silva Vicente MD Primary Care Provider [phone] Reason for Visit * Reason Comments Medication Refill Encounter Details Date Type Department Care Team (Late st Contact Info) Description 03/22/2024 Refill [facility] - Gastroenterology - [place] #2 [place] [address] Germania Navarro APRN, SHEAR HELPER [address] [place] [address] Medication Refill Social History Tobacco Use Types [...] Telephone Encounter - Monica Marcelo RN - 03/22/2024 11:20 AM CDT [facility] [place] [facility] order for pediatric and adult patients. documented in this encounter Plan of Treatment Upcoming Encounters Date Type Department Care Team (Latest Contact Info) Description 12/30/2024 8:00 AM CDT [facility] 1 [place] [address] Kwadwo Montalvo MD [address] [address] 12/30/2024 8:00 AM CDT - 12/30/2024 8:30 AM CDT [facility] [address] [place] [address] Kwadwo Montalvo MD [address] [address] EGD 01/03/2025 11:30 AM CDT [facility] 1 [place] [address] Robert Mae MD #[address] [place] [address] Discharge Disposition: Discharged to home or Selfcare 01/28/2025 10:45 AM CDT Office Visit [facility] - Pulmonology & Sleep Medicine - [place] #2 [facility] [place] [address] Robert Mae MD [address] [place] [address] 03/11/2025 10:30 AM CDT Office Visit [facility] - Neurology - [place] #2 [facility] [place] [address] Maryann El APRN, ICE CREAM DISPENSER [address] [place] [address] Scheduled Procedures Name Priority Associated Diagnoses Date/Ti me EGD ULCER OF THE ESOPHAGUS 12/30/2024 8:00 AM CDT documented as of this encounter Visit Diagnoses Not on filedocumented in this encounter Additional Health Concerns Infection Onset Date Last Indicated Resolved Time COVID - 19 09/03/2024 09/03/2024 09/03/2024 9:25 PM 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 MILL 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 documented as of this encounter Care Teams Director Speech Language Relationship Specialty Start Date End Date Micky Dickson MD [address] [place] [address] [address] [place] [address] PCP - General Family Medicine 09/25/23 07/04/24 Silva Vicente MD [address] [place] [address] [address] [place] [address] PCP - General Family Medicine 07/05/24 Mac Sher MD #[address] [place] [address] Consulting Physician Neurology 09/15/15 Robert Mae MD #[address] [place] [address] Consulting Physician Pulmonary Disease 10/27/22 Maryann El APRN, ICE CREAM DISPENSER [address] [place] [address] Nurse Practitioner Advanced Practice Nurse 12/21/22 Germania Navarro APRN, SHEAR HELPER [address] [place] [address] Nurse Practitioner Advanced Practice Nurse 10/04/23 Leny Morales MD #[address] [place] [address] Consulting Physician Gastroenterology 01/19/23 documented as of this encounter
--- OUTSIDE RECORDS SUMMARY | 2024-12-17 14:00 | XMS_ITS | Encounter Summary ---
Author Organization [facility] Address [address] [place] [address] Phone Care Team Providers Care Optimization Consultant Name Role Phone Mac Sher MD Unavailable [phone] Micky Dickson MD Primary Care Provider Robert Mae MD Unavailable Maryann El APRN, ARMORED CAR GUARD Unavailable + [phone] Germania Navarro APRN, EMPLOYEE DEVELOPMENT SPECIALIST Unavailable Leny Morales MD Unavailable [phone] Silva Vicente MD Primary Care Provider [phone] Reason for Visit * Reason Comments Medication Refill Encounter Details Date Type Department Care Team (Late st Contact Info) Description 2024 Refill [facility] - Gastroenterology - [place] [address] [place] [address] Germania Navarro APRN, EMPLOYEE DEVELOPMENT SPECIALIST #2 [place] [address] Medication Refill Social History Tobacco Use Types [...] Telephone Encounter - Monica Marcelo RN - 2024 8:29 AM CDT Medication [facility] [place] order for pediatric and adult patients. documented in this encounter Plan of Treatment Upcoming Encounters Date Type Department Care Team (Latest Contact Info) Description 12/30/2024 8:00 AM CDT [facility] 1 [place] [address] Kwadwo Montalvo MD [address] [address] 12/30/2024 8:00 AM CDT - 12/30/2024 8:30 AM CDT [facility] 1 [place] [address] Kwadwo Montalvo MD [address] [address] EGD 01/03/2025 11:30 AM CDT [facility] 1 [place] [address] Robert Mae MD #[address] [place] [address] Discharge Disposition: Discharged to home or Selfcare 01/28/2025 10:45 AM CDT Office Visit [facility] - Pulmonology & Sleep Medicine - [place] #2 [place] [address] Robert Mae MD #2 [place] [address] 03/11/2025 10:30 AM CDT Office Visit [facility] - Neurology - [place] #2 [place] [address] Maryann El APRN, ARMORED CAR GUARD [address] [place] [address] Scheduled Procedures Name Priority Associated Diagnoses Date/Ti me EGD ULCER OF THE ESOPHAGUS 12/30/2024 8:00 AM CDT documented as of this encounter Visit Diagnoses Not on filedocumented in this encounter Additional Health Concerns Infection Onset Date Last Indicated Resolved Time COVID - 19 09/03/2024 09/03/2024 09/03/2024 9:25 PM MANAGER OF COMPLIANCE documented as of this encounter Care Teams Optimization Consultant Relationship Specialty Start Date End Date Micky Dickson MD [address] [place] [address] [address] [place] [address] PCP - General Family Medicine 09/25/23 07/04/24 Silva Vicente MD [address] [place] [address] [address] [place] [address] PCP - General Family Medicine 07/05/24 Mac Sher MD #[address] [place] [address] Consulting Physician Neurology 09/15/15 Robert Mae MD #2 [place] [address] Consulting Physician Pulmonary Disease 10/27/22 Maryann El APRN, ARMORED CAR GUARD #[address] [place] [address] Nurse Practitioner Advanced Practice Nurse 12/21/22 Germania Navarro APRN, EMPLOYEE DEVELOPMENT SPECIALIST #[address] [place] [address] Nurse Practitioner Advanced Practice Nurse 10/04/23 Leny Morales MD #2 [place] [address] Consulting Physician Gastroenterology 01/19/23 documented as of this encounter
--- OUTSIDE RECORDS SUMMARY | 2024-12-17 14:00 | XMS_ITS | Patient Health Summary ---
Author Organization [facility] Address [address] [place] [address] Care Team Providers Care Driver Examiner Name Role Phone Unavailable Primary Care Provider Unavailabl e Note from [facility],non-owned Affiliates and Associated Physician Practices is amultiple site organization consisting of ambulatory clinics and hospital sitesin [place], [place], [place] and [place]. This disclosure is being madepursuant to the Care Everywhere program and may not contain all information available regarding this patient. Last updated 18.[facility] Social History Tobacco Use Types Packs/Day Years Used Date Smoking Tobacco: Never Assessed Sex and Gender Information Value Date Recorded Sex Assigned at Not on file Gender Identity Not on file Sexual Orientation Not on file
--- OUTSIDE RECORDS SUMMARY | 2024-12-17 14:00 | XMS_ITS | Clinical Summary ---
Author Organization [facility] Address [address] [facility] [place] [address] Care Team Providers Care Chocolate Maker Name Role Phone Unavailable Primary Care Provider Unavailabl e Source Comments [facility],non-owned Affiliates and Associated Physician Practices is amultiple site organization consisting of ambulatory clinics and hospital sitesin [place], [place], [place] and [place]. This disclosure is being madepursuant to the Care Everywhere program and may not contain all information available regarding this patient. Last updated 18.[facility] [employer] Encounters Date Type Department Care Team Description 10/29/2024 Travel from Last 3 Months Social History Tobacco Use Types Packs/Day Years Used Date Smoking Tobacco: Never Assessed Sex and Gender Information Value Date Recorded Sex Assigned at Not on file Gender Identity Not on file Sexual Orientation Not on file Plan of Treatment Health Maintenance Due Date Last Done Comments BONE DENSITY TESTING 1955 COLOGUARD (AGES 45-75) - COL ON CA SCREENING 1957 COLON MONITORING 1955 COLONOSCOPY - COLON CA SCREENING 1957 CT COLONOGRAPHY - COLON CA SCREENING 1955 Colorectal Cancer Screening 1957 FIT - COLON CA SCREENING 1957 FLEX SIG - COLON CA SCREENING 1957 LIPID TESTING 1957 HEPATITIS C SCREENING 04/04/1975 DTAP/TDAP/TD VACCINES (1 - Tdap) 1976 PNEUMOCOCCAL VACCINE 50+ (1 of 1 - PCV) 2007 ZOSTER VACCINE (1 of 2) 2007 COVID-19 VACCINE ( - 2023-2 5 season) 2024 INFLUENZA VACCINE (#1) 2024 , 10/01/2018, 09/03/2015 DEPRESSION SCREENING 10/23/2024 MEDICARE AWV CALENDAR YEAR 2024 MAMMOGRAM 06/10/2026 06/10/2024, 06/10/2024 Respiratory Syncytial Virus (RSV) Vaccine Pt: or over 60 yrs (1 - 1-dose 75+ series) 2032 HEPATITIS B VACCINE Aged Out No longe r eligible based on patient's age to complete this topic HIB VACCINE Aged Out No longer eligi ble based on patient's age to complete this topic HPV VACCINE Aged Out No longer eligi ble based on patient's age to complete this topic MENINGOCOCCAL (Group B) VACCINE Aged Out No longer eligible b ased on patient's age to complete this topic MENINGOCOCCAL VACCINE Aged Out No grace esme eligible based on patient's age to complete this topic Christy Golden Personal/Family Self 1955
--- OUTSIDE RECORDS SUMMARY | 2024-12-17 14:01 | XMS_ITS | Encounter Summary ---
Author Organization [facility] Address [address] [place] [address] Phone Care Team Providers Care Adult Services Librarian Name Role Phone Mac Sher MD Unavailable [phone] Winifred Armstrong CLIENT ANALYST, BIODIESEL PLANT OPERATIONS ENGINEER Primary Care Provider Micky Dickson MD Primary Care Provider Robert Mae MD Unavailable Maryann El APRN, HONEY LIQUEFIER Unavailable + [phone] Germania Navarro APRN, BIODIESEL PLANT OPERATIONS ENGINEER Unavailable Leny Morales MD Unavailable [phone] Silva Vicente MD Primary Care Provider [phone] Reason for Visit * Reason Comments Medication Refill Encounter Details Date Type Department Care Team (Late st Contact Info) Description 10/25/2021 Refill [facility] - Neurology - [place] [address] [place] [id number] Maryann El, CESAR, HONEY LIQUEFIER [address] [place] [address] Medication Refill Social History Tobacco Use Types Packs/Day Years Used Date Smoking Tobacco: Light Smoker Cigarettes 0.3 25 Smokeless Tobacco: Never Comments:occassional Alcohol Use [...] AM CDT Sexual Orientation Not on file COVID-19 Exposure Response Date Recorded In the last month, have you been in contact with someone who was confirmed or suspected to have Coronavirus / COVID-19? No / Unsure 10/07/2021 5:20 AM CHEMISTRY INSTRUCTOR documented as of this encounter Plan of Treatment Upcoming Encounters Date Type Department Care Team (Latest Contact Info) Description 12/30/2024 8:00 AM CDT [facility] 1 [place] [address] Kwadwo Montalvo MD [address] [address] 12/30/2024 8:00 AM CDT - 12/30/2024 8:30 AM CDT [facility] 1 [place] [address] Kwadwo Montalvo MD [address] [address] EGD 01/03/2025 11:30 AM CDT [facility] Res[facility] 1 [place] [address] Robert Mae MD [address] [place] [address] Discharge Disposition: Discharged to home or Selfcare 01/28/2025 10:45 AM CDT Office Visit [facility] - Pulmonology & Sleep Medicine - [place] [address] [place] [address] Robert Mae MD [address] [place] [address] 03/11/2025 10:30 AM CDT Office Visit [facility] - Neurology - [place] [address] [place] [address] Maryann El APRN, HONEY LIQUEFIER [address] [place] [address] Scheduled Procedures Name Priority Associated Diagnoses Date/Ti me EGD ULCER OF THE ESOPHAGUS 12/30/2024 8:00 AM CDT documented as of this encounter Visit Diagnoses Diagnosis Intractable chronic migraine without aura and with status migrainosus Chronic migraine without aura, with intractable migraine, so stated, with status migrainosus Essential tremor Essential and other specified forms of tremor documented in this encounter Additional Health Concerns Infection Onset Date Last Indicated Resolved Time COVID - 19 09/03/2024 09/03/2024 09/03/2024 9:25 PM CHEMISTRY INSTRUCTOR documented as of this encounter Care Teams Adult Services Librarian Relationship Specialty Start Date End Date Winifred Armstrong, CLIENT ANALYST, BIODIESEL PLANT OPERATIONS ENGINEER [address] [place] [address] PCP - General Advanced Practice Nurse 10/17/19 Micky Dickson MD [address] [place] [address] DR CASTRO [address] [place] [address] PCP - General Family Medicine 09/25/23 07/04/24 Silva Vicente MD [address] [place] [address] [place] [address] PCP - General Family Medicine 07/05/24 Mac Sher MD [address] [place] [address] Consulting Physician Neurology 09/15/15 Robert Mae MD [address] [place] [address] Consulting Physician Pulmonary Disease 10/27/22 Maryann El APRN, HONEY LIQUEFIER [address] [place] [address] Nurse Practitioner Advanced Practice Nurse 12/21/22 Germania Navarro APRN, BIODIESEL PLANT OPERATIONS ENGINEER [address] [place] [address] Nurse Practitioner Advanced Practice Nurse 10/04/23 Leny Morales MD [address] [place] [address] Consulting Physician Gastroenterology 01/19/23 documented as of this encounter
--- OUTSIDE RECORDS SUMMARY | 2024-12-17 14:01 | XMS_ITS | Encounter Summary ---
Author Organization [facility] Address [address] [place] [address] Phone Care Team Providers Care Site Auditor Name Role Phone Mac Sher MD Unavailable [phone] Micky Dickson MD Primary Care Provider Robert Mae MD Unavailable Maryann El APRN, FINISH MENDER Unavailable + [phone] Germania Navarro APRN, SCRAP BALLER Unavailable Leny Morales MD Unavailable [phone] Silva Vicente MD Primary Care Provider [phone] Reason for Visit * Reason Comments Medication Refill Encounter Details Date Type Department Care Team (Late st Contact Info) Description 02/24/2024 Refill [facility] - Neurology - [place] [address] [place] [id number] Maryann El APRN, FINISH MENDER [address] [place] [address] Medication Refill Social History Tobacco Use Types [...] encounter Miscellaneous Notes * Telephone Encounter - Crista Smith RN - 02/26/2024 8:04 AM CDT Medication(s) refilled and signed per [facility] Chronic Medication Refill Standing Order for Pediatricand Adult Patients. Requested Prescriptions Pending Prescriptions Disp Refills donepezil (ARICEPT) 10 MG Tablet [Pharmacy Med Name: Donepezil HCl 10 MG Oral Tablet] 30 Tablet 3 Sig: Take 1 tablet by mouth nightly Antidementia Agents Protocol Passed - 02/24/2024 6:53 AM Passed - Visit with relevant provider in past 12 months or upcoming 90 days Recent Visits Date Type Provider Dept 12/15/23 Procedure Visit Mac Sher MD [facility] Neurology [place] 11/16/23 Office Visit Mac Sher MD [facility] Neurology [place] 08/25/23 Procedure Visit Mac Sher MD [facility] Neurology [place] 05/26/23 Procedure Visit Mac Sher MD [facility] Neurology [address] 05/09/23 Telemedicine Mac Sher MD [facility] Neurology [place] 03/01/23 Procedure Visit Mac Sher MD [facility] [place] [address] Showing recent visits within past 365 days and meeting all other requirements Future Appointments Date Type Provider Dept 03/08/24 Appointment Mac Sher MD [place] [place] 05/14/24 Appointment Maryann El APRN, FINISH MENDER [facility] Neu[place] Showing future appointments within next 90 days and meeting all other requirements Passed - Patient has established therapy with Antidementia Agents for at least 6 months documented in this encounter Plan of Treatment Upcoming Encounters Date Type Department Care Team (Latest Contact Info) Description 12/30/2024 8:00 AM CDT [facility] 1 [place] [address] Kwadwo Montalvo MD [address] [facility] [address] [place] [address] 12/30/2024 8:00 AM CDT - 12/30/2024 8:30 AM CDT Surgery [facility] Periop [address] [facility] [place] [address] Kwadwo Montalvo MD 2 [facility] [address] [address] EGD 01/03/2025 11:30 AM CDT [facility] [address] [facility] [place] [address] Robert Mae MD [address] [place] [address] Discharge Disposition: Discharged to home or Selfcare 01/28/2025 10:45 AM CDT Office Visit [facility] - Pulmonology & Sleep Medicine - [place] [address] [place] [address] Robert Mae MD [address] [place] [address] 03/11/2025 10:30 AM CDT [facility] [place] [address] [place] [address] Maryann El APRN, FINISH MENDER [address] [place] [address] Scheduled Procedures Name Priority Associated Diagnoses Date/Ti me EGD ULCER OF THE ESOPHAGUS 12/30/2024 8:00 AM CDT documented as of this encounter Visit Diagnoses Not on filedocumented in this encounter Additional Health Concerns Infection Onset Date Last Indicated Resolved Time COVID - 19 09/03/2024 09/03/2024 09/03/2024 9:25 PM MANAGER PACKAGE documented as of this encounter Care Teams Site Auditor Relationship Specialty Start Date End Date Micky Dickson MD [address] [place] [address] DR CASTRO [address] [place] [address] PCP - General Family Medicine 09/25/23 07/04/24 Silva Vicente MD [address] [place] [address] DR CASTRO [address] [place] [address] PCP - General Family Medicine 07/05/24 Mac Sher MD [address] [place] [address] Consulting Physician Neurology 09/15/15 Robert Mae MD [address] [place] [address] Consulting Physician Pulmonary Disease 10/27/22 Maryann El APRN, FINISH MENDER [address] [place] [address] Nurse Practitioner Advanced Practice Nurse 12/21/22 Germania Navarro APRN, SCRAP BALLER [address] [place] [address] Nurse Practitioner Advanced Practice Nurse 10/04/23 Leny Morales MD [address] [place] [address] Consulting Physician Gastroenterology 01/19/23 documented as of this encounter
--- OUTSIDE RECORDS SUMMARY | 2024-12-17 14:01 | XMS_ITS | Encounter Summary ---
Author Organization [facility] Address [address] [place] [address] Phone Care Team Providers Care Surveyor Geophysical Prospecting Name Role Phone Mac Sher MD Unavailable [phone] Winifred Armstrong TIMBER SPRINKLER, FOOD SERVICE AIDE Primary Care Provider Micky Dickson MD Primary Care Provider Robert Mae MD Unavailable Maryann El APRN, JOURNEYMAN WIREMAN Unavailable + [phone] Germania Navarro APRN, FOOD SERVICE AIDE Unavailable Leny Morales MD Unavailable [phone] Silva Vicente MD Primary Care Provider [phone] Reason for Visit * Reason Comments Medication Refill Encounter Details Date Type Department Care Team (Late st Contact Info) Description 11/01/2022 Refill [facility] - Neurology - [place] [address] [place] [address] Mac Sher MD [address] [place] [address] Medication Refill Social History Tobacco Use Types Packs/Day Years Used Date Smoking Tobacco: Former Cigarettes 0.3 25 1 11/27/1996 - 09/26/2022 Smokeless Tobacco: Never Comments:occassional Alcohol Use Standard [...] Exposure Response Date Recorded In the last 10 days, have yo u been in contact with someone who was confirmed or suspected to have Coronavirus/COVID-19? No / Unsure 10/27/2022 10:41 AM MUSIC COMPOSITION TEACHER documented as of this encounter Miscellaneous Notes * Telephone Encounter - Maryann El APRN, CNS - 11/01/2022 2:48 PM MUSIC COMPOSITION TEACHER Maximum of 15 tabs per month C COMPOSITION TEACHER documented in this encounter Plan of Treatment Upcoming Encounters Date Type Department Care Team (Latest Contact Info) Description 12/30/2024 8:00 AM CDT [facility] 1 [facility] [place] [address] Kwadwo Montalvo MD [address] [place] [address] 12/30/2024 8:00 AM CDT - 12/30/2024 8:30 AM CDT [facility] [address] [place] [address] Kwadwo Montalvo MD [address] [place] [address] EGD 01/03/2025 11:30 AM CDT [facility] 1 [place] [address] Robert Mae MD [address] [place] [address] Discharge Disposition: Discharged to home or Selfcare 01/28/2025 10:45 AM CDT [facility] #2 [place] [address] Robert Mae MD #[address] [place] [address] 03/11/2025 10:30 AM CDT [facility] [place] [address] [place] [address] Maryann El TIMBER SPRINKLER, JOURNEYMAN WIREMAN [address] [place] [address] Scheduled Procedures Name Priority Associated Diagnoses Date/Ti me EGD ULCER OF THE ESOPHAGUS 12/30/2024 8:00 AM CDT documented as of this encounter Visit Diagnoses Diagnosis Intractable chronic migraine without aura and with status migrainosus Chronic migraine without aura, with intractable migraine, so stated, with status migrainosus documented in this encounter Additional Health Concerns Infection Onset Date Last Indicated Resolved Time COVID - 19 09/03/2024 09/03/2024 09/03/2024 9:25 PM MUSIC COMPOSITION TEACHER documented as of this encounter Care Teams Surveyor Geophysical Prospecting Relationship Specialty Start Date End Date Winifred Armstrong APRN, FOOD SERVICE AIDE [address] [place] [address] PCP - General Advanced Practice Nurse 10/17/19 Micky Dickson MD [address] [place] [address] [place] [address] PCP - General Family Medicine 09/25/23 07/04/24 Silva Vicente MD [address] [place] [address] [place] [address] PCP - General Family Medicine 07/05/24 Mac Sher MD [address] [place] [address] Consulting Physician Neurology 09/15/15 Robert Mae MD #2 [place] [address] Consulting Physician Pulmonary Disease 10/27/22 Maryann El, TIMBER SPRINKLER, JOURNEYMAN WIREMAN [address] [place] [address] Nurse Practitioner Advanced Practice Nurse 12/21/22 Germania Navarro, TIMBER SPRINKLER, FOOD SERVICE AIDE [address] [place] [address] Nurse Practitioner Advanced Practice Nurse 10/04/23 Leny Morales MD [address] [place] [address] Consulting Physician Gastroenterology 01/19/23 documented as of this encounter
--- OUTSIDE RECORDS SUMMARY | 2024-12-17 14:01 | XMS_ITS | Encounter Summary ---
Author Organization [facility] Address [address] [place] [address] Phone Care Team Providers Care Cut Lace Machine Operator Name Role Phone Mac Sher MD Unavailable Winifred Armstrong PEER FINANCIAL COUNSELOR, TITLE I DIRECTOR Primary Care Provider Micky Dickson MD Primary Care Provider [phone] Robert Mae MD Unavailable Maryann El APRN, MEDICAL OFFICE PROFESSIONAL INSTRUCTOR Unavailable + [phone] Germania Navarro APRN, TITLE I DIRECTOR Unavailable Leny Morales MD Unavailable [phone] Silva Vicente MD Primary Care Provider [phone] Encounter Details Date Type Department Care Team (Latest Contact Info) Description 06/22/2020 [facility] Sched[facility] 1 [place] [address] Winifred Armstrong APRN, TITLE I DIRECTOR [address] [place] [address] Other nonspecific abnormal finding of lung field (Primary Dx) Social History Tobacco Use Types Packs/Day Years Used Date Smoking Tobacco: Light Smoker Cigarettes 0.3 25 Smokeless Tobacco: Never Comments:occassional Alcohol Use Standard Drinks/Week Comments Yes 1 (1 standard drink = 0.6 oz pur e alcohol) social/ 1x month Comments No Sex and Gender Information Value [...] have Coronavirus / COVID-19? No / Unsure 06/18/2020 2:47 PM CDT documented as of this encounter Plan of Treatment Upcoming Encounters Date Type Department Care Team (Latest Contact Info) Description 12/30/2024 8:00 AM CDT [facility] Per[facility] 1 [place] [address] Kwadwo Montalvo MD [address] [address] 12/30/2024 8:00 AM CDT - 12/30/2024 8:30 AM CDT [facility] Per[facility] 1 [place] [address] Kwadwo Montalvo MD [address] [address] EGD 01/03/2025 11:30 AM CDT [facility] Res[facility] 1 [place] [address] Robert Mae MD [address] [place] [address] Discharge Disposition: Discharged to home or Selfcare 01/28/2025 10:45 AM CDT [facility] - [place] [address] [place] [address] Robert Mae MD #[address] [place] [address] 03/11/2025 10:30 AM CDT [facility] [place] #[address] [place] [address] Maryann El APRN, MEDICAL OFFICE PROFESSIONAL INSTRUCTOR [address] [place] [address] Scheduled Procedures Name Priority Associated Diagnoses Date/Ti me EGD ULCER OF THE ESOPHAGUS 12/30/2024 8:00 AM CDT documented as of this encounter Visit Diagnoses Diagnosis Other nonspecific abnormal finding of lung field- Primary documented in this encounter Additional Health Concerns Infection Onset Date Last Indicated Resolved Time COVID - 19 06/23/2021 06/23/2021 06/29/2021 9:24 PM CDT COVID - 19 09/03/2024 09/03/2024 09/03/2024 9:25 PM MOTHERCRAFT NURSE documented as of this encounter Care Teams Cut Lace Machine Operator Relationship Specialty Start Date End Date Winifred Armstrong APRN, TITLE I DIRECTOR [address] [place] [address] PCP - General Advanced Practice Nurse 10/17/19 Micky Dickson MD [address] [place] [address] [place] [address] PCP - General Family Medicine 09/25/23 07/04/24 Silva Vicente MD [address] [place] [address] [place] [address] PCP - General Family Medicine 07/05/24 Mac Sher MD [address] [place] [address] Consulting Physician Neurology 09/15/15 Robert Mae MD #2 [place] [address] Consulting Physician Pulmonary Disease 10/27/22 Maryann El APRN, MEDICAL OFFICE PROFESSIONAL INSTRUCTOR [address] [place] [address] Nurse Practitioner Advanced Practice Nurse 12/21/22 Germania Navarro APRN, TITLE I DIRECTOR [address] [place] [address] Nurse Practitioner Advanced Practice Nurse 10/04/23 Leny Morales MD [address] [place] [address] Consulting Physician Gastroenterology 01/19/23 documented as of this encounter
--- OUTSIDE RECORDS SUMMARY | 2024-12-17 14:01 | XMS_ITS | Referral Summary ---
Author Organization [facility] Address [address] [facility] [place] [address] Care Team Providers Care Assembler Piano Name Role Phone Unavailable Primary Care Provider Unavailabl e Source Comments [facility],non-owned Affiliates and Associated Physician Practices is amultiple site organization consisting of ambulatory clinics and hospital sitesin [place] and [place]. This disclosure is being madepursuant to the Care Everywhere program and may not contain all information available regarding this patient. Last updated 18.[facility] Encounters Date Type Department Care Team Description 10/29/2024 Travel from Last 3 Months Social History Tobacco Use Types Packs/Day Years Used Date Smoking Tobacco: Never Assessed Sex and Gender Information Value Date Recorded Sex Assigned at Not on file Gender Identity Not on file Sexual Orientation Not on file Plan of Treatment Not on file Christy Golden Personal/Family Self 1955
--- OUTSIDE RECORDS SUMMARY | 2024-12-17 14:01 | XMS_ITS | Encounter Summary ---
Author Organization [facility] Address [address] [place] [address] Phone Care Team Providers Care Speech And Drama Teacher Name Role Phone Mac Sher MD Unavailable [phone] Winifred Armstrong CLEANER WINDOW, SUPERVISOR SKI PRODUCTION Primary Care Provider Micky Dickson MD Primary Care Provider [phone] Robert Mae MD Unavailable Maryann lE APRN, FLUE DUST LABORER Unavailable + [phone] Germania Navarro APRN, SUPERVISOR SKI PRODUCTION Unavailable Leny Morales MD Unavailable [phone] Silva Vicente MD Primary Care Provider [phone] Reason for Visit * Reason Comments Medication Refill Encounter Details Date Type Department Care Team (Late st Contact Info) Description 01/14/2020 [facility]ill [facility] - [place] #1 [place] [address] Mac Sher MD [address] [place] [address] Medication Refill Social History Tobacco [...] on file documented as of this encounter Plan of Treatment Upcoming Encounters Date Type Department Care Team (Latest Contact Info) Description 12/30/2024 8:00 AM CDT [facility] 1 [place] [address] Kwadwo Montalvo MD [address] [address] 12/30/2024 8:00 AM CDT - 12/30/2024 8:30 AM CDT [facility] 1 [place] [address] Kwadwo Montalvo MD [address] [address] EGD 01/03/2025 11:30 AM CDT [facility]ointment [facility] Res[facility] Therapy 1 [place] [address] Robert Mae MD [address] [place] [address] Discharge Disposition: Discharged to home or Selfcare 01/28/2025 10:45 AM CDT Office Visit [facility] - Pulmonology & Sleep Medicine - [place] #2 [place] [address] Robert Mae MD [address] [place] [address] 03/11/2025 10:30 AM CDT Office Visit [facility] - Neurology - [place] [address] [place] [address] Maryann El, CLEANER WINDOW, FLUE DUST LABORER [address] [place] [address] Scheduled Procedures Name Priority Associated Diagnoses Date/Ti me EGD ULCER OF THE ESOPHAGUS 12/30/2024 8:00 AM CDT documented as of this encounter Visit Diagnoses Not on filedocumented in this encounter Additional Health Concerns Infection Onset Date Last Indicated Resolved Time COVID - 19 06/23/2021 06/23/2021 06/29/2021 9:24 PM CDT COVID - 19 09/03/2024 09/03/2024 09/03/2024 9:25 PM HYDRAULIC ELEVATOR CONSTRUCTOR documented as of this encounter Care Teams Speech And Drama Teacher Relationship Specialty Start Date End Date Winifred Armstrong, CLEANER WINDOW, SUPERVISOR SKI PRODUCTION [address] [place] [address] PCP - General Advanced Practice Nurse 10/17/19 Micky Dickson MD [address] [place] [address] DR CASTRO [address] [place] [address] PCP - General Family Medicine 09/25/23 07/04/24 Silva Vicente MD [address] [place] [address] [place] [address] PCP - General Family Medicine 07/05/24 Mac Sher MD [address] [place] [address] Consulting Physician Neurology 09/15/15 Robert Mae MD #[address] [place] [address] Consulting Physician Pulmonary Disease 10/27/22 Maryann El APRN, FLUE DUST LABORER [address] [place] [address] Nurse Practitioner Advanced Practice Nurse 12/21/22 Germania Navarro APRN, SUPERVISOR SKI PRODUCTION [address] [place] [address] Nurse Practitioner Advanced Practice Nurse 10/04/23 Leny Morales MD [address] [place] [address] Consulting Physician Gastroenterology 01/19/23 documented as of this encounter
--- OUTSIDE RECORDS SUMMARY | 2024-12-17 14:01 | XMS_ITS | Encounter Summary ---
Author Organization [facility] Address [address] [place] [address] Phone Care Team Providers Care Yarn Finisher Name Role Phone Mac Sher MD Unavailable [phone] Winifred Armstrong RESEARCH ENGINEER, MEDIA ASSOCIATE Primary Care Provider Micky Dickson MD Primary Care Provider Robert Mae MD Unavailable Maryann El APRN, DISTRIBUTION OPERATION SUPERVISOR Unavailable + [phone] Germania Navarro APRN, MEDIA ASSOCIATE Unavailable Leny Morales MD Unavailable [phone] Silva Vicente MD Primary Care Provider [phone] Reason for Visit * Reason Comments Medication Refill Encounter Details Date Type Department Care Team (Late st Contact Info) Description 05/31/2020 [facility]ill [facility] - [place] #1 [place] [address] Mac Sher MD [address] [place] [address] Medication Refill Social History Tobacco [...] Description 12/30/2024 8:00 AM CDT [facility] 1 [place] [address] Kwadwo Montalvo MD [address] [address] 12/30/2024 8:00 AM CDT - 12/30/2024 8:30 AM CDT [facility] 1 [place] [address] Kwadwo Montalvo MD [address] [address] EGD 01/03/2025 11:30 AM CDT [facility]ointment [facility] Res[facility] 1 [place] [address] Robert Mae MD [address] [place] [address] Discharge Disposition: Discharged to home or Selfcare 01/28/2025 10:45 AM CDT Office Visit [facility] - Pulmonology & Sleep Medicine - [place] [address] [place] [address] Robert Mae MD [address] [place] [address] 03/11/2025 10:30 AM CDT Office Visit [facility] - Neurology - [place] [address] [place] [address] Maryann El, RESEARCH ENGINEER, DISTRIBUTION OPERATION SUPERVISOR [address] [place] [address] Scheduled Procedures Name Priority Associated Diagnoses Date/Ti me EGD ULCER OF THE ESOPHAGUS 12/30/2024 8:00 AM CDT documented as of this encounter Visit Diagnoses Not on filedocumented in this encounter Additional Health Concerns Infection Onset Date Last Indicated Resolved Time COVID - 19 06/23/2021 06/23/2021 06/29/2021 9:24 PM CDT COVID - 19 09/03/2024 09/03/2024 09/03/2024 9:25 PM SHOP ESTIMATOR documented as of this encounter Care Teams Yarn Finisher Relationship Specialty Start Date End Date Winifred Armstrong, RESEARCH ENGINEER, MEDIA ASSOCIATE [address] [place] [address] PCP - General Advanced Practice Nurse 10/17/19 Micky Dickson MD [address] [place] [address] DR CASTRO [address] [place] [address] PCP - General Family Medicine 09/25/23 07/04/24 Silva Vicente MD [address] [place] [address] [place] [address] PCP - General Family Medicine 07/05/24 Mac Sher MD [address] [place] [address] Consulting Physician Neurology 09/15/15 Robert Mae MD [address] [place] [address] Consulting Physician Pulmonary Disease 10/27/22 Maryann El APRN, DISTRIBUTION OPERATION SUPERVISOR [address] [place] [address] Nurse Practitioner Advanced Practice Nurse 12/21/22 Germania Navarro APRN, MEDIA ASSOCIATE [address] [place] [address] Nurse Practitioner Advanced Practice Nurse 10/04/23 Leny Morales MD #[address] [place] [address] Consulting Physician Gastroenterology 01/19/23 documented as of this encounter
--- OUTSIDE RECORDS SUMMARY | 2024-12-17 14:01 | XMS_ITS | Encounter Summary ---
Author Organization [facility] Address [address] [place] [address] Phone Care Team Providers Care Plumbing Engineer Name Role Phone Mac Sher MD Unavailable [phone] Winifred Armstrong PARTY PLAN DEALER, CITY MAGISTRATE Primary Care Provider Micky Dickson MD Primary Care Provider Robert Mae MD Unavailable Maryann El APRN, DIE MAKER ELECTRONIC Unavailable + [phone] Germania Navarro APRN, CITY MAGISTRATE Unavailable Leny Morales MD Unavailable [phone] Silva Vicente MD Primary Care Provider [phone] Reason for Visit * Reason Comments Medication Refill Encounter Details Date Type Department Care Team (Late st Contact Info) Description 05/12/2020 [facility]ill [facility] - [place] [address]1 [place] [address] Mac Sher MD [address] [place] [address] Medication Refill Social History Tobacco [...] Description 12/30/2024 8:00 AM CDT [facility] Periop 1 [place] [address] Kwadwo Montalvo MD [address] [address] 12/30/2024 8:00 AM CDT - 12/30/2024 8:30 AM CDT [facility] 1 [place] [address] Kwadwo Montalvo MD [address] [address] EGD 01/03/2025 11:30 AM CDT [facility] Res[facility] 1 [place] [address] Robert Mae MD [address] [place] [address] Discharge Disposition: Discharged to home or Selfcare 01/28/2025 10:45 AM CDT Office Visit [facility] - Pulmonology & Sleep Medicine - [place] #[address] [place] [address] Robert Mae MD [address] [place] [address] 03/11/2025 10:30 AM CDT Office Visit [facility] - Neurology - [place] #[address] [place] [address] Maryann El, PARTY PLAN DEALER, DIE MAKER ELECTRONIC [address] [place] [address] Scheduled Procedures Name Priority Associated Diagnoses Date/Ti me EGD ULCER OF THE ESOPHAGUS 12/30/2024 8:00 AM CDT documented as of this encounter Visit Diagnoses Not on filedocumented in this encounter Additional Health Concerns Infection Onset Date Last Indicated Resolved Time COVID - 19 06/23/2021 06/23/2021 06/29/2021 9:24 PM CDT COVID - 19 09/03/2024 09/03/2024 09/03/2024 9:25 PM AUDIO VISUAL PROJECT MANAGER documented as of this encounter Care Teams Plumbing Engineer Relationship Specialty Start Date End Date Winifred Armstrong, PARTY PLAN DEALER, CITY MAGISTRATE [address] [place] [address] PCP - General Advanced Practice Nurse 10/17/19 iMcky Dickson MD [address] [place] [address] [address] CASTRO [address] [place] [address] PCP - General Family Medicine 09/25/23 07/04/24 Silva Vicente MD [address] [place] [address] [place] [address] PCP - General Family Medicine 07/05/24 Mac Sher MD #[address] [place] [address] Consulting Physician Neurology 09/15/15 Robert Mae MD #[address] [place] [address] Consulting Physician Pulmonary Disease 10/27/22 Maryann El APRN, DIE MAKER ELECTRONIC [address] [place] [address] Nurse Practitioner Advanced Practice Nurse 12/21/22 Germania Navarro APRN, CITY MAGISTRATE [address] [place] [address] Nurse Practitioner Advanced Practice Nurse 10/04/23 Leny Morales MD #[address] [place] [address] Consulting Physician Gastroenterology 01/19/23 documented as of this encounter
--- OUTSIDE RECORDS SUMMARY | 2024-12-17 14:01 | XMS_ITS | Clinical Summary ---
Author Organization [facility] CALL [facility] ENTER Address [address] [place] [address] Phone Care Team Providers Care Etiology Teacher Name Role Phone Mac Sher MD Unavailable Robert Mae MD Unavailable Maryann El APRN, COMMUNITY SERVICES OFFICER Unavailable Germania Navarro APRN, MAKING MACHINE CATCHER Unavailable Leny Morales MD Unavailable [phone] Silva Vicente MD Primary Care Provider [phone] Allergies Active Allergy Reactions Criticality Noted Date Comments Iron Shortness of Breath,Itching 06/03/20 16 Medications citalopram (CeleXA) 40 MG Tablet Take 40 mg by mouth daily. Active traZODone (DESYREL) 150 MG TabletIndicatio ns:once a day Take 150 mg by mouth nightly. Indications: once a day Active risperiDONE (RISPERDAL) 1 MG Tablet Take 2 mg by mouth 2 times daily. 021 Active busPIRone HCl (BUSPAR) 30 MG Tablet Take by mouth 2 times daily. 021 Active celecoxib (CeleBREX) 200 MG Capsule Take 200 mg by mouth daily. INSTRUCTED TO STOP TAKING 7 DAYS PRIOR TO PROCEDURE Active oxyCODONE-aceta minophen (PERCOCET) 5-325 MG Tablet Take 1 Tablet by mouth every 8 hours as needed. Active hydrOXYzine (ATARAX) 50 MG TabletIndicatio ns:Anxiety 4 times daily. Indications: Feeling Anxious 023 Active Lasmiditan Succinate (Reyvow) 50 MG TabletIndicatio ns:Chronic migraine w/o aura w/o status migrainosus, not intractable Take 1 Tablet by mouth once as needed for Other (migraine) for up to 1 dose. 8 Tablet 2 024 Active pantoprazole (PROTONIX) 40 MG Tablet Delayed ResponseIndicat ions:Gastroesop hageal reflux disease, unspecified whether esophagitis present Take 1 Tablet by mouth daily. 90 Tablet 1 Active Additional Information Patient not taking.Reported on 12/17/2024 albuterol (ProAir HFA) 108 (90 Base) MCG/ACT Aerosol Solution take 2 Puffs by inhalation every 4 hours as needed for Wheezing. 1 g 6 Active Additional Information Patient not taking.Reported on 12/17/2024 Fluticasone-Ume clidin-Vilant (Trelegy Ellipta) 100-62.5-25 MCG/ACT AEROSOL POWDER, BREATH ACTIVATED take 1 Puff by inhalation daily. 1 Each 5 Active dicyclomine (BENTYL) 20 MG Tablet TAKE 1 TABLET BY MOUTH ONCE DAILY IN THE MORNING AND 1 TABLET AT BEDTIME 120 Tablet 024 Active donepezil (ARICEPT) 10 MG Tablet Take 1 tablet by mouth nightly 90 Tablet 024 Active primidone (MYSOLINE) 250 MG TabletIndicatio ns:Essential tremor Take 1 tablet by mouth nightly 90 Tablet 025 Active lactulose (CHRONULAC) 10 GM/15ML SolutionIndicat ions:Constipati on, unspecified constipation type Take 30 mL by mouth 3 times daily as needed for Constipation - 1st line. 946 mL 3 025 Active propranolol (INDERAL) 20 MG Tablet TAKE 1 TABLET BY MOUTH THREE TIMES DAILY 90 Tablet 2 025 Active topiramate (TOPAMAX) 100 MG TabletIndicatio ns:Chronic migraine w/o aura w/o status migrainosus, not intractable Take 1 Tablet by mouth 2 times daily. 60 Tablet Active methylPREDNISol one (MEDROL DOSPACK) 4 MG Tablet Therapy PackIndications :Acute migraine Take 1 Tablet by mouth See Admin Instructions. 6 p.o day one, 5 p.o. Day two, 4 p.o. Day three, 3 p.o. Day 4, 2 p.o. Day 5, 1 p.o. Day 6 21 Tablet Active Additional Information Patient not taking.Reported on 12/17/2024 linaclotide (Linzess) 145 MCG Capsule Take 145 mcg by mouth every morning (before breakfast). Active buPROPion (WELLBUTRIN) 100 MG Tablet Take 100 mg by mouth 2 times daily. Active budesonide-form oterol fumarate (Symbicort) 160-4.5 MCG/ACT Aerosol take 2 Puffs by inhalation 2 times daily as needed. Active Benzonatate 200 MG Capsule Take 200 mg by mouth 3 times daily as needed. Active benztropine (COGENTIN) 0.5 MG Tablet Take 1 mg by mouth nightly. 2024 Discontinued(M ed List Clean Up) Qulipta 60 MG TabletIndicatio ns:Chronic migraine w/o aura w/o status migrainosus, not intractable Take 1 tablet by mouth once daily 30 Tablet 3 024 2024 Discontinued(R eorder) Topiramate 50 MG TabletIndicatio ns:Chronic migraine w/o aura w/o status migrainosus, not intractable Take 1 Tablet by mouth 2 times daily. 60 Tablet 4 024 2024 Discontinued(D ose adjustment) buPROPion (WELLBUTRIN) 100 MG Tablet 100 mg. 024 2024 Discontinued(M ed List Clean Up) propranolol (INDERAL) 20 MG Tablet TAKE 1 TABLET BY MOUTH THREE TIMES DAILY 90 Tablet 024 2024 Discontinued Linzess 145 MCG Capsule TAKE 1 CAPSULE BY MOUTH IN THE MORNING BEFORE BREAKFAST 90 Capsule 025 02/17/ 2025 Discontinued(M ed List Clean Up) Atogepant (Qulipta) 60 MG TabletIndicatio ns:Chronic migraine w/o aura w/o status migrainosus, not intractable Take 1 Tablet by mouth daily. 30 Tablet 3 025 2024 Discontinued(M ed List Clean Up) Active Problems Problem Noted Date Diagnosed Date Esophageal ulcer without bleeding 07/05/2024 Other emphysema 01/11/2024 Tobacco use disorder 01/11/[address] lung nodules on CT 10/27/2022 Primary osteoarthritis of right shoulder 021 Polyp of colon 09/03/2021 Postmenopause 09/03/2021 Long-term use of high-risk medication 09/03/2021 Nontraumatic complete tear of right rotator cuff 09/30/2020 Gastroesophageal reflux disease 07/03/2020 Irritable bowel syndrome wit h both constipation and diarrhea 07/03/2020 Anxiety disorder 12/10/2018 Pain of left sacroiliac joint 11/10/2016 Lumbar spinal stenosis 06/15/2016 Intractable chronic migraine without aura and with status migrainosus 05/27/2016 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 09/15/2015 Common migraine w/o aura w/ intractable migraine Overview (08/14/2015): W/ status migrainosis Essential tremor Secondary insomnia Resolved Problems Problem Noted Date Diagnosed Date Resolved Date Weakness of neck 04/16/2024 04/17/2024 Encounters Date Type Department Care Team Description 12/17/2024 Travel 12/09/2024 10:00 AM WEB MERCHANDISER Office Visit [facility] [address] [place] [address] Maryann El, CONSTRUCTION ADMINISTRATIVE ASSISTANT, COMMUNITY SERVICES OFFICER Chronic migraine w/o aura w/o status migrainosus, not intractable (Primary Dx); Tobacco dependence syndrome; Acute migraine; Essential tremor Discharge Disposition: Discharged to home or Selfcare 12/07/2024 Travel 12/02/2024 Refill [facility] [address] [place] [address] Mac Sher MD Medication Refill 11/27/2024 [facility] [place] [address] [facility] [address] Mac Sher MD Medication Refill 11/12/2024 Telephone [facility] - [place] [address] [facility] [address] Germania Navarro APRN, MAKING MACHINE CATCHER Medication Management 11/11/2024 Telephone [facility] - [place] [address] [facility] [address] Kwadwo Montalvo MD 11/08/2024 [facility] [address] [facility] [address] Germania Navarro APRN, MAKING MACHINE CATCHER Medication Refill 11/06/2024 Travel 10/31/2024 [facility] [place] [address] [facility] [address] Mac Sher MD Medication Refill 10/31/2024 Travel 10/29/2024 Results Follow-Up [facility] [place] [address] [facility] [address] Robert Mae MD Multiple lung nodules on CT (Primary Dx) 10/24/2024 Travel 10/21/2024 9:23 AM WEB MERCHANDISER - 10/21/2024 11:59 PM WEB MERCHANDISER [facility] [address] [facility] [place] [address] Robert Mae MD Discharge Disposition: Discharged to home or Selfcare 10/19/2024 Travel 10/10/2024 [facility] [address] [facility] [address] Mac Sher MD Medication Refill 09/30/2024 [facility] [place] [address] [place] [address] Robert Mae MD 09/28/2024 Refill [facility] - [place] [address] [place] [address] Maryann El APRN, COMMUNITY SERVICES OFFICER Medication Refill 09/18/2024 [facility] [place] [address] [facility] [address] Germania Navarro APRN, MAKING MACHINE CATCHER Medication Refill from Last 3 Months Immunizations Immunization Administration Dates Next Due Influenza Vaccine 09/03/2015 Influenza, High-dose, Quadrivalent 09/21/2020 Influenza, Injectable, Quadrivalent 09/12/2019,1 12/02/2017 Pneumococcal Vaccine - 13 Valent 09/12/2019 Pneumococcal Vaccine Adult - 23 Valent 5 Family History Medical History Relation Name Comments Cancer Father Lung Cancer Father Migraines Father Cancer Maternal Aunt Lung Cancer Mother Chronic Obstructive Pulmonary Disease Mother Emphysema Mother Lung Cancer Mother Cancer Other Ovarian Cancer Other Breast Cancer Paternal Aunt Cancer Paternal Aunt Thyroid Disease Sister Relation Name Status Comments Father Maternal Aunt Mother Other Paternal Aunt Sister Alive Social History Tobacco Use Types Packs/Day Years Used Date Smoking Tobacco: Former Cigarettes 0.5 25 Smokeless Tobacco: Never Tobacco Cessation:Counseling Given: Not Answered Comments:occassional Alcohol Use Standard Drinks/Week Comments Not Currently 0 (1 standard drink = 0.6 oz pur e alcohol) [facility] Utilities Answer Date Recorded In the past 12 months has [employer], gas, oil, or water [employer] threatened to shut off services in your home? Patient declined 04/16/2024 Social Connection and Isolation Panel [NHANES] A nswer Date Recorded In a typical week, how many times do you talk on the phone with family, friends, or neighbors? Patient declined 04/16/2024 How often do you get togethe r with friends or relatives? Patient declined 04/16/2024 How often do you attend scientology or voodoo serv ices? Patient declined 04/16/2024 Do you belong to any clubs o r organizations such as scientology groups, unions, fraternal or athletic groups, or school groups? Patient declined 04/16/2024 How often do you attend meet ings of the clubs or organizations you belong to? Patient declined 04/16/2024 Are you , , di vorced, , never , or living with a partner? Patient declined 04/16/2024 AUDIT-C Answer Date Recorded Q1: How often do you have a drink containing alc ohol? Patient declined 04/16/2024 Q2: How many drinks containi ng alcohol do you have on a typical day when you are drinking? Patient declined 04/16/2024 Q3: How often do you have si x or more drinks on one occasion? Patient declined 04/16/2024 Overall Financial Resource Strain (CARDIA) Answe r Date Recorded How hard is it for you to pa y for the very basics like food, housing, medical care, and heating? Patient declined 04/16/2024 [facility] Occupat ional [facility] - Occupational Stress Questionnaire Answer Date Recorded Do you feel stress - tense, restless, nervous, or anxious, or unable to sleep at night because your mind is troubled all the time - these days? Patient declined 04/16/2024 Exercise Vital Sign Answer Date Recorde d On average, how many days pe r week do you engage in moderate to strenuous exercise (like a brisk walk)? Patient declined On average, how many minutes do you engage in exercise at this level? Patient declined 04/16/2024 Hunger Vital Sign Answer Date Recorded Within the past 12 months, y ou worried that your food would run out before you got the money to buy more. Patient declined Within the past 12 months, t he food you bought just didn't last and you didn't have money to get more. Patient declined PRAPARE - Transportation Answer Date Re corded In the past 12 months, has l ack of transportation kept you from medical appointments or from getting medications? Patient declined 04/16/2024 In the past 12 months, has l ack of transportation kept you from meetings, work, or from getting things needed for daily living? Patient declined 04/16/2024 Housing Stability Vital Sign Answer Dante e Recorded In the last 12 months, was t here a time when you were not able to pay the mortgage or rent on time? Patient declined 04/16/20 24 In the past 12 months, how m any times have you moved where you were living? 1 04/16/2024 At any time in the past 12 m [facility], were you homeless or living in a assisted (including now)? Patient declined 04/16/2024 Sexually Active Control Partners Comments Not Currently Comments No Sex and Gender Information Value Date Recorded Sex Assigned at Female 06/05/2023 10:27 AM CDT Legal Sex Female 10:21 PM CDT Gender Identity Female 06/05/2023 10:27 AM CDT Sexual Orientation Not on file Last Filed Vital Signs Vital Sign Reading Time Taken Comments Blood Pressure 118/72 12/09/2024 9:53 AM WEB MERCHANDISER Pulse 77 12/09/2024 9:53 AM WEB MERCHANDISER Temperature 36.4 C (97.6 F) 12/09/2024 9:53 AM WEB MERCHANDISER Respiratory Rate 16 12/09/2024 9:53 AM WEB MERCHANDISER Oxygen Saturation 100% 12/09/2024 9:53 AM WEB MERCHANDISER Inhaled Oxygen Concentration - - Weight 50.8 kg (112 lb) 12/17/2024 9:00 AM WEB MERCHANDISER Height 157.5 cm (5' 2 ) 12/17/2024 9:00 AM WEB MERCHANDISER Body Mass Index 20.49 12/17/2024 9:00 AM WEB MERCHANDISER Plan of Treatment Upcoming Encounters Date Type Department Care Team (Latest Contact Info) Description 12/30/2024 8:00 AM CDT [facility] [address] [place] [place] [address] Kwadwo Montalvo MD [address] [address] 12/30/2024 8:00 AM CDT - 12/30/2024 8:30 AM CDT [facility] [address] [place] [address] Kwadwo Montalvo MD 2 [facility] [address] [place] [address] EGD 01/03/2025 11:30 AM CDT [facility] [address] [place] [phone] Robert Mae MD [address] [place] [phone] Discharge Disposition: Discharged to home or Selfcare 01/28/2025 10:45 AM CDT [facility] [place] [address] [facility] [address] Robert Mae MD [address] [place] [phone] 03/11/2025 10:30 AM CDT [facility] [place] [address] [place] [phone] Maryann El APRN, COMMUNITY SERVICES OFFICER [address] [facility] [place] [address] Scheduled Procedures Name Priority Associated Diagnoses Date/Ti me EGD ULCER OF THE ESOPHAGUS 12/30/2024 8:00 AM CDT Health Maintenance Due Date Last Done Comments DEXA Bone Density 1955 Hepatitis C Virus (HCV) Screening 1955 Cologuard 2007 Immunochemical Fecal Occult Blood 2007 Respiratory Syncytial Virus (RSV) Immunization (Adult) (1 - Risk 60-74 years 1-dose series) 2017 Zoster Immunization (2 of 2) 11/29/2024 10/04/2024 SARS-COV-2 Immunization ( season) 2025 08/28/2024, 03/01/2021, 02/01/2021 Mammogram 06/10/2025 06/10/2024, 02/0 10/2022, 07/28/2021, Additional history exists Colonoscopy 11/14/2033 11/14/2023, 05/28/2014 Colorectal Cancer Screening 11/14/2033 11/14/2023, 05/28/2014 Pneumococcal Immunization (50+ years) Completed 07/21/2022, 09/12/2019, 03/20/2015 Pneumococcal Immunization Combined Discontinued 07/21/2022, 09/12/2019, 03/20/2015 Influenza Immunization Completed , 09/06/2021, 09/21/2020, Additional history exists DTaP/Tdap/Td Immunization Discontinued 10/04/2024 TdaP Immunization Completed 10/04/2024 Hepatitis B Immunization Aged Out No longer eligible based on patient's age to complete this topic Meningococcal Immunization (ACWY) Aged Out No longer eligible based on patient's age to complete this topic Rotavirus Immunization Aged Out No lo nger eligible based on patient's age to complete this topic Medical Devices Implanted Type Area Oven Roaster Device Identifier Shelf Expiration Date Model / Serial / Lot Cement Bone Orthoset 2 20gm - [id number] Implanted:Qty : 2 on 10/07/2021 [facility]PL[facility] Right: Shoulder [employer] 12/20/2021 [id number] / [id number] / [id number] Shoulder Humeral Stem Reunion Tsa Press Fit 11mm - [id number] Implanted:Qty : 1 on 10/07/2021 by [facility] IMPLANT Right: Shoulder [employer] 11/23/2022 [id number] / [id number] / [id number] Humeral Head Implanted:Qty : 1 on 10/07/2021 by [facility] Right: Shoulder [employer] 01/26/2022 [id number] / [id number] / [id number] Procedures Procedure Name Priority Date/Time Associated Diagnosis Comments CT CHEST W/O CONTRAST Routine 10/21/2024 9:36 AM WEB MERCHANDISER Multiple lung nodules on CT BETTIE DIAG BILATERAL W IMPLANTS DIGITAL W CAD W LEONEL Routine 06/10/2024 10:39 AM CDT Mastodynia COLONOSCOPY Routine 05/28/2014 from Last 3 Months or Most Recently Relevant to Health Maintenance Results * CT CHEST W/O CONTRAST (10/21/2024 9:36 AM WEB MERCHANDISER) Anatomical Region Laterality Modality Chest N/A Computed Tomogra phy 10/27/2024 12:4 9 AM WEB MERCHANDISER Impressions 10/27/2024 12:52 AM WEB MERCHANDISER IMPRESSION: Scattered nodules show no change since at least October 2022. No new/enlarging nodule or other acute abnormality is identified. Severe emphysema. Narrative 10/27/2024 12:52 AM WEB MERCHANDISER EXAM DESCRIPTION: CT CHEST W/O CONTRAST REASON FOR STUDY: [address] 03/2024 for pulmonary nodules since 2013 and emphysema. Hx HTN and former smoker. TECHNIQUE: CT scan of the chest performed without intravenous contrast using helical scanning technique. Reconstructed coronal and sagittal MPR images reviewed. All images stored on PACS. Automated exposure control was used as a dose optimization technique for this examination. COMPARISON: 04/17/2024 FINDINGS: LUNGS: Coarse apical scarring. Advanced emphysema. Semi-solid spiculated nodule in the posterior left apex, image 54/242, unchanged. Trachea and major airways patent. HEART/MEDIASTINUM/ELENA: Small heart size reflects hyperinflation. Coronary artery calcifications. No enlarged lymph node. Thoracic inlet unremarkable. UPPER ABDOMEN: Fluid distended stomach. Small left renal cyst. MUSCULOSKELETAL: Smgq-lq-spizayuq disc disease. CHEST WALL: Breast implants. THIS IS AN ELECTRONICALLY VERIFIED FINAL REPORT 10/27/2024 12:49 AM - Electronically signed by Adan Gamble M.D. AR: AYAH Report ID: [id number] Reading Location: [id number] Procedure Note Adan Gamble MD - 10/27/2024 EXAM DESCRIPTION: CT CHEST W/O CONTRAST REASON FOR STUDY: [address] 03/2024 for pulmonary nodules since 2013 and emphysema. Hx HTN and former smoker. TECHNIQUE: CT scan of the chest performed without intravenous contrast using helical scanning technique. Reconstructed coronal and sagittal MPR images reviewed. All images stored on PACS. Automated exposure control was used as a dose optimization technique for this examination. COMPARISON: 04/17/2024 FINDINGS: LUNGS: Coarse apical scarring. Advanced emphysema. Semi-solid spiculated nodule in the posterior left apex, image 54/242, unchanged. Trachea and major airways patent. HEART/MEDIASTINUM/ELENA: Small heart size reflects hyperinflation. Coronary artery calcifications. No enlarged lymph node. Thoracic inlet unremarkable. UPPER ABDOMEN: Fluid distended stomach. Small left renal cyst. MUSCULOSKELETAL: Bziq-ax-pyhaseef disc disease. CHEST WALL: Breast implants. THIS IS AN ELECTRONICALLY VERIFIED FINAL REPORT 10/27/2024 12:49 AM - Electronically signed by Adan Gamble M.D. AR: AYAH Report ID: [id number] Reading Location: [place] [address] IMPRESSION: Scattered nodules show no change since at least October 2022. No new/enlarging nodule or other acute abnormality is identified. Severe emphysema. Robert Mae MD IMG CT ORDERABLES Final Result * BETTIE DIAG BILATERAL W IMPLANTS DIGITAL W CAD W LEONEL (06/10/2024 10:39 AM CDT) Anatomical Region Laterality Modality breast Bilateral Mammography 06/10/2024 9:36 AM CDT Narrative 06/10/2024 2:44 PM CDT - [facility] DIAG BILATERAL W IMPLANTS DIGITAL W CAD W LEONEL - BETTIE US BREAST LIMITED RT BILATERAL DIGITAL DIAGNOSTIC MAMMOGRAM 3D/2D WITH CAD WITH MEDIOLATERAL OBLIQUE CRANIOCAUDAL AND RIGHT ULTRASOUND WITH AUGMENTATION: 06/10/2024 The study was acquired using digital technology and interpreted from soft copy. Current study was also evaluated with ICAD version 7.2. 2D digital mammographic views, as well as 3D digital tomosynthesis were performed in the CC and MLO projections. CLINICAL: Diagnostic study. Patient reports right upper breast pain for 6-8 weeks after having the heimlich maneuver performed on them. No personal history of cancer. Paternal aunt had breast cancer. Maternal cousin had ovarian cancer. COMPARISONS: Comparison is made to exams dated: 11/23/2022, 07/28/2021, and 06/10/2020 [facility]. BREAST TISSUE:The tissue of both breasts is heterogeneously dense. This may lower the sensitivity of mammography. FINDINGS: Bilateral breast implants are stable and intact. No significant masses or calcifications are seen in either breast on the mammogram orTargeted right breast ultrasound. No lesions are seen underlying the area of pain at the 11 to 12 o'clock position of the right breast, 9 cm from the nipple. IMPRESSION: OVERALL STUDY BIRADS: 2 BENIGN There is no mammographic or sonographic evidence of malignancy. A 1 year screening mammogram is recommended. The results and recommendations were discussed with the patient. Electronically signed by: Natanael Galindo M.D. ll/:06/10/2024 14:01:51 Brick And Blocker Aid Labor(s): Jocelynn Gilbert RDMS OBGYN, [facility]; RT Casey(R)(M), [facility] letter sent: Normal Exam Reading location: [facility] OVERALL STUDY BIRADS: 2 Benign Procedure Note Natanael Galindo MD - 06/10/2024 - BETTIE DIAG BILATERAL W IMPLANTS DIGITAL W CAD W LEONEL - BETTIE US BREAST LIMITED RT BILATERAL DIGITAL DIAGNOSTIC MAMMOGRAM 3D/2D WITH CAD WITH MEDIOLATERAL OBLIQUE CRANIOCAUDAL AND RIGHT ULTRASOUND WITH AUGMENTATION: 06/10/2024 The study was acquired using digital technology and interpreted from soft copy. Current study was also evaluated with ICAD version 7.2. 2D digital mammographic views, as well as 3D digital tomosynthesis were performed in the CC and MLO projections. CLINICAL: Diagnostic study. Patient reports right upper breast pain for 6-8 weeks after having the heimlich maneuver performed on them. No personal history of cancer. Paternal aunt had breast cancer. Maternal cousin had ovarian cancer. COMPARISONS: Comparison is made to exams dated: 11/23/2022, 07/28/2021, and 06/10/2020 [facility]. BREAST TISSUE:The tissue of both breasts is heterogeneously dense. This may lower the sensitivity of mammography. FINDINGS: Bilateral breast implants are stable and intact. No significant masses or calcifications are seen in either breast on the mammogram orTargeted right breast ultrasound. No lesions are seen underlying the area of pain at the 11 to 12 o'clock position of the right breast, 9 cm from the nipple. IMPRESSION: OVERALL STUDY BIRADS: 2 BENIGN There is no mammographic or sonographic evidence of malignancy. A 1 year screening mammogram is recommended. The results and recommendations were discussed with the patient. Electronically signed by: Natanael Galindo M.D. ll/:06/10/2024 14:01:51 [employer] Blocker Aid Labor(s): Jocelynn Gilbert RDMS OBGYN, [facility]; RT Casey(R)(M), [facility] letter sent: Normal Exam Reading location: [facility] OVERALL STUDY BIRADS: 2 Benign Silva Vicente MD IMG MAMMO ORDERABLES Final Resul t * HM COLONOSCOPY (05/28/2014) us Franklin Lynn DO PROCEDURE/MINOR SURGICAL ORDERA BLES Final Result from Last 3 Months or Most Recently Relevant to Health Maintenance Insurance MEDICARE C [employer] Advance Directives * No CPR-Selective Treatment (Latest Code Status on File) Date Activated Date Inactivated Comments 04/16/2024 10:57 PM 04/17/2024 10:22 PM No CPR - S elective Treatment: FULL ARREST: Do Not Attempt Resuscitation. PRE-ARREST: DO NOT USE INTUBATION OR MECHANICAL VENTILATION, but may use basic medical treatment like CPAP or BiPAP, antibiotics, IV fluids, oxygen, etc. Avoid care in ICU setting. Question Answer Comments Physician documentation made in notes? Yes * Full Code Date Activated Date Inactivated Comments 10/21/2021 1:40 PM 03/16/2022 7:38 AM * Full Code Date Activated Date Inactivated Comments 03/30/2017 5:38 AM 03/31/2017 8:31 PM CPR-Full Treat ment: FULL ARREST: Attempt Resuscitation/CPR wit intubation and mechanical ventilation. PRE-ARREST: Use entire range of life support measures to stabilize the patient. Care Teams Etiology Teacher Relationship Specialty Start Date End Date Silva Vicente MD [address] [place] [address] [id number] PCP - General Family Medicine 07/05/24 Mac Sher MD [address] [place] [address] Consulting Physician Neurology 09/15/15 Robert Mae MD [address] [place] [address] Consulting Physician Pulmonary Disease 10/27/22 Maryann El APRN, COMMUNITY SERVICES OFFICER [address] [place] [address] Nurse Practitioner Advanced Practice Nurse 12/21/22 Germania Navarro APRN, MAKING MACHINE CATCHER [address] [place] [address] Nurse Practitioner Advanced Practice Nurse 10/04/23 Leny Morales MD [address] [place] [address] Consulting Physician Gastroenterology 01/19/23
--- OUTSIDE RECORDS SUMMARY | 2024-12-17 14:01 | XMS_ITS | Clinical Summary ---
Author Organization [facility] Address [address] [place] [address] Care Team Providers Care Ornamental Iron Worker Name Role Phone Micky Dickson MD Primary Care Provider + Allergies Active Allergy Reactions Criticality Noted Date Comments Iron Itching,Edema Medium Facial edema Medications citalopram (CeleXA) 40 mg tablet take 1 tablet (40MG) by oral route every day 0 3 Active albuterol HFA (PROVENTIL HFA,VENTOLIN HFA) 90 mcg/actuation inhaler inhale 2 puff by inhalation route every 4 - 6 hours as needed 1 Inhaler 2 5 Active busPIRone (BUSPAR) 30 mg tablet Take by mouth 3 (three) times a day 30 mg morning, 15 mg afternoon and night 1 Active butalbital-acet aminophen-caffe ine (ESGIC) 50-325-40 mg per tablet Take 1 tablet by mouth every 6 (six) hours as needed 2 2 Active celecoxib (CeleBREX) 200 mg capsule Take 1 capsule (200 mg total) by mouth every morning [address] (NexIUM) 20 mg capsule Take 1 capsule (20 mg total) by mouth every morning 2 Active topiramate (TOPAMAX) 50 mg tablet Take 1 tablet (50 mg total) by mouth 2 (two) times a day 2 Active traZODone (DESYREL) 150 mg tablet Take 1 tablet (150 mg total) by mouth nightly 3 Active hydrOXYzine (ATARAX) 50 mg tablet Take 1 tablet (50 mg total) by mouth 3 (three) times a day 3 Active benztropine (COGENTIN) 1 mg tablet Take 1 tablet (1 mg total) by mouth nightly 3 Active risperiDONE (RisperDAL) 1 mg tablet Take 1.5 tablets (1.5 mg total) by mouth nightly 3 Active primidone (MYSOLINE) 250 mg tablet Take 1 tablet (250 mg total) by mouth nightly 3 Active methocarbamoL (ROBAXIN) 500 mg tablet Take 1 tablet (500 mg total) by mouth every 8 (eight) hours 3 Active Linzess 145 mcg capsule Take 1 capsule (145 mcg total) by mouth every morning 3 Active donepeziL (ARICEPT) 10 mg tablet Take 1 tablet (10 mg total) by mouth nightly 3 Active dicyclomine (BENTYL) 20 mg tablet Take 1 tablet (20 mg total) by mouth 2 (two) times a day 3 Active Qulipta 60 mg tablet Take 1 tablet by mouth every morning 3 Active citalopram (CeleXA) 10 mg tablet Take 1 tablet (10 mg total) by mouth every morning W/40 mg = 50 mg Active multivitamin tablet,chewable Take 1 Gum by mouth every morning (SAMM) Active oxyCODONE-aceta minophen (PERCOCET) 10-325 mg per tabletIndicatio ns:Pain Take 1 tablet by mouth every 4 (four) hours as needed for pain 40 tablet 3 Active Active Problems Problem Noted Date Diagnosed Date Essential tremor 02/14/2023 02/14/2023 Intractable common migraine without aura 023 02/14/2023 Overview (02/14/2023): W/ status migrainosis Secondary insomnia 02/14/2023 02/14/2023 Spondylolisthesis at L4-L5 level 02/13/20[address] lung nodules on CT 10/27/202201/22 Primary osteoarthritis of right shoulder 021 02/14/2023 Polyp of colon 09/03/2021 02/14/2023 Nontraumatic complete tear of right rotator cuff 09/30/2020 02/14/2023 Gastroesophageal reflux disease 07/03/2020 02/14/2023 Irritable bowel syndrome wit h both constipation and diarrhea 07/03/2020 02/14/2023 Anxiety disorder 12/10/2018 02/14/2023 Pain of left sacroiliac joint 11/10/2016 Lumbar spinal stenosis 06/15/2016 Intractable chronic migraine without aura and with status migrainosus 05/27/2016 02/14/2023 Aneurysm of anterior cerebral artery 09/15/2015 02/14/2023 Multiple pulmonary nodules 03/20/2015 Overview (01/27/2017): Multiple pulmonary nodules Hypertension 03/08/2014 Overview (01/27/2017): HYPERTENSION NOS Immunizations Immunization Administration Dates Next Due Influenza, Trivalent, IM (MDV) 09/03/2015 Pneumococcal Polysaccharide PPV23 03/20/2015 Surgical History Surgery Date Site/Laterality Comments BREAST BIOPSY Breast biopsy TOTAL ABDOMINAL HYSTERECTOMY W/ BILATERAL SALPINGOOPHORECTOMY Hysterectomy, total abdominal, BSO KNEE ARTHROSCOPY Bilateral CARPAL TUNNEL RELEASE Bilateral Carpal tunnel release OTHER SURGICAL HISTORY pulmonary nodules CHOLECYSTECTOMY ULNAR TUNNEL RELEASE THUMB SURGERY 10/23/2012 - 10/22/2013 Left Medical History Medical History Date Comments Anxiety disorder 2019 Depression Hypertension 2014 Calculus of kidney Hx Other Medical cyst removed Chronic obstructive pulmonary disease (HCC) PTSD (post-traumatic stress disorder) emotional and physical Bipolar disorder (HCC) OCD (obsessive compulsive disorder) Osteoporosis Migraines GERD (gastroesophageal reflux disease) 2019 Irritable bowel syndrome wit h both constipation and diarrhea 2019 Polyp of colon 08/2021 Spondylolisthesis at L4-L5 level 01/2023 Nontraumatic complete tear of right rotator cuff 09/2020 Primary osteoarthritis of right shoulder 2020 Aneurysm of anterior cerebral artery 2015 Essential tremor 01/2023 Intractable chronic migraine without aura with status migrainosus 2016 Intractable chronic migraine without aura Lumbar spinal stenosis 2016 Multiple pulmonary nodules 2015 Insomnia Family History Medical History Relation Name Comments Lung cancer Father Cancer -lung; C ause of : Cancer -lung COPD Mother COPD; Hypertension Mother Hypertension; Cancer Other 1 Family history of Cancer; Heart disease Other 2 Family history of Heart disease; Hypertension Other 3 Family history of Hypertension; Lung disease Other 4 Family history of lung problems; Other Other 5 Family history of lung, father; Relation Name Status Comments Father Mother Other 1 Other 2 Other 3 Other 4 Other 5 Social History Tobacco Use Types Packs/Day Years Used Date Smoking Tobacco: Former Cigarettes Q uit: 08/23/2022 Smokeless Tobacco: Never Tobacco Cessation:Counseling Given: Not Answered Alcohol Use Standard Drinks/Week Comments No 0 (1 standard drink = 0.6 oz pur e alcohol) AUDIT-C Answer Date Recorded Q1: How often do you have a drink containing alcohol? Never 03/17/2023 Q2: How many drinks containi ng alcohol do you have on a typical day when you are drinking? Patient does not drink Q3: How often do you have si x or more drinks on one occasion? Never 03/17/2023 PHQ-2 Answer Date Recorded PHQ-2 Total Score (If total score is 3 or more points, staff should administer the PHQ-9) 0 03/17/2023 Personal Safety Answer Date Recorded Have you ever been in or are you currently in a harmful physical or emotional relationship or is someone making you feel afraid or unsafe? 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 Gender Identity Not on file Sexual Orientation Not on file Obstetrics History Last Filed Vital Signs Vital Sign Reading Time Taken Comments Blood Pressure 110/70 03/19/2023 8:22 AM CDT Pulse 97 03/19/2023 8:22 AM CDT Temperature 36.7 C (98.1 F) 03/19/2023 8:22 AM CDT Respiratory Rate 16 03/19/2023 8:22 AM CDT Oxygen Saturation 95% 03/19/2023 10:00 AM CDT Inhaled Oxygen Concentration - - Weight 52.6 kg (116 lb) 03/17/2023 6:56 AM CDT Height 157.5 cm (5' 2 ) 03/17/2023 6:56 AM CDT Body Mass Index 21.22 03/17/2023 6:56 AM CDT Plan of Treatment Health Maintenance Due Date Last Done Comments Colon Cancer Screening-Colonoscopy 1957 Hepatitis C Screening 1957 Osteoporosis Screening-Bone Density Scan 1957 DTaP/Tdap/Td Vaccine (1 - Tdap) 1968 Hepatitis B Screening 1975 Zoster Vaccine (1 of 2) 2007 Well Visit 65+ 2022 Breast Cancer Screening-Mammogram 11/23/2023 11/23/2022, 07/28/2021, 06/14/2013 Depression Screening 02/14/2024 02/13/2023, 02/14/20 Fall Risk Assessment 03/19/2024 03/19/2023 Covid-19 Vaccine (3 - 2023-2 5 season) 2024 03/01/2021, 02/01/2021 Influenza Vaccine (#1) 2024 , 09/21/2020, 09/12/2019, Additional history exists Pneumococcal vaccine 65+ (3 of 3 - PCV20 or PCV21) 09/12/2024 09/12/2019, 03/20/2015 Medical Devices Implanted Type Area Kitchen Assistant Device Identifier Shelf Expiration Date Model / Serial / Lot Bioventus Osteoamp Select Fiber 2.5cc Oasf-025 - [id number] - [id number] Implanted:Qty: 1 on 03/17/2023 by London Gaytan MD at [facility] N/A: Spine Lumbar BIOVENTUS 11/13/2027 OASF-025 / [id number] / Medtronic Inc Bmp Infuse Sm [id number] - [id number] Implanted:Qty: 1 on 03/17/2023 by London Gaytan MD at [facility] N/A: Spine Lumbar Medtronic Inc 10/23/2024 [id number] / / [id number] Spinal Elements Cage Spinal Lumbar 12 Degree Alif Lucent [id number] Peek [id number] - [id number] Implanted:Qty: 1 on 03/17/2023 by London Gaytan MD at [facility] N/A: Spine Lumbar Spinal Elements [id number] / / Spinal Elements Magnum+ 5.5mm 25mm Spine Screw Bone Nonsterile 41352-035 - [id number] Implanted:Qty: 2 on 03/17/2023 by London Gaytan MD at [facility] N/A: Spine Lumbar Spinal Elements [id number] / / Zavation Llc Zavation 16mm 1 Level Spine Cervical Plate Bone Nonsterile 300-0116 - [id number] Implanted:Qty: 1 on 03/17/2023 by London Gaytan MD at [facility] N/A: Spine Lumbar Zavation Llc 300-0116 / / Zavation Llc Zavation 4.5mm 18mm Self Tap Variable Angle Spine Screw Bone 305-3638 - [id number] Implanted:Qty: 4 on 03/17/2023 by London Gaytan MD at [facility] N/A: Spine Lumbar Zavation Llc [id number] / / Procedures Procedure Name Priority Date/Time Associated Diagnosis Comments SCREENING MAMMOGRAM Routine 06/14/2013 8 :37 AM CDT from Last 3 Months or Most Recently Relevant to Health Maintenance Results * Screening Mammogram (06/14/2013 8:37 AM CDT) Anatomical Region Laterality Modality Breast N/A Mammography 06/14/2013 8:37 AM CDT Narrative 06/17/2013 12:23 PM CDT Screening Mamm W Implants Bi Acc#: [id number] Performed by: andrea DATE OF EXAM: Jun 14 2013 CLINICAL HISTORY: Routine screening, no current complaints. RESULT: Eight view implant mammogram is compared to a prior exam dated 12/29/11. The breasts heterogeneously dense. There are no new masses or suspicious calcifications. Interval appearance of bilateral subpectoral implants are now seen. Implant contours appear normal. There is no evidence of rupture. Digital technology was employed plus computer- aided detection software (R2) was utilized in interpretation of these images. This facility utilizes a reminder system to notify patients of yearly mammograms. IMPRESSION: BI-RADS CATEGORY 1: NEGATIVE EXAM. RECOMMEND ROUTINE FOLLOWUP. Interpreting Physician: DR LORNE SCHWARZ M.D. Read on: Jun 14 2013 8:37A Transcribed by: TONEY On: Jun 14 2013 3:40P Approved Electronically by: KARISHMA Bach, DR PRADHAN on: Jun 17 2013 12:23P Ordering DR: CHRISTOPH BRANDT Attending DR: CHRISTOPH BRANDT Procedure Note Provider, MD Supa - 02/12/2017 Screening Mamm W Implants Bi Acc#: [id number] Performed by: andrea DATE OF EXAM: Jun 14 2013 CLINICAL HISTORY: Routine screening, no current complaints. RESULT: Eight view implant mammogram is compared to a prior exam dated 12/29/11.The breasts heterogeneously dense. There are no new masses or suspiciouscalcifications. Interval appearance of bilateral subpectoral implants arenow seen. Implant contours appear normal. There is no evidence ofrupture. Digital technology was employed plus computer-aided detectionsoftware (R2) was utilized in interpretation of these images. Thisfacility utilizes a reminder system to notify patients of yearlymammograms. IMPRESSION: BI-RADS CATEGORY 1: NEGATIVE EXAM. RECOMMEND ROUTINE FOLLOWUP. Interpreting Physician: DR LORNE SCHWARZ M.D. Read on: Jun 14 20138:37A Transcribed by: TONEY On: Jun 14 2013 3:40P Approved Electronically by: KARISHMA Bach, DR PRADHAN on: Jun 17 201312:23P Ordering DR: CHRISTOPH BRANDT Attending DR: CHRISTOPH BRANDT Historical Provider MD LANG MAMMO PROCEDURES Lanie l Result from Last 3 Months or Most Recently Relevant to Health Maintenance [place] [address] [employer] CHOICE MEDICARE PPO [employer] MEDICARE PPO [employer] MEDICARE PPO Advance Directives For more information, please contact: [phone] * Full Code (Latest Code Status on File) Date Activated Date Inactivated Comments 03/17/2023 2:05 PM 03/19/2023 7:58 PM Care Teams Ornamental Iron Worker Relationship Specialty Start Date End Date Micky Dickson MD PCP - General Family Medicine 08/10/23
--- OUTSIDE RECORDS SUMMARY | 2024-12-17 14:01 | XMS_ITS | Referral Summary ---
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 Gender Identity Not on file Sexual Orientation Not on file Last Filed [...] 03/17/2023 6:56 AM CDT Plan of Treatment Not on file Medical Devices Implanted Type Area Road Crossing Guard Device Identifier Shelf Expiration Date Model / Serial / Lot Bioventus Osteoamp Select Fiber 2.5cc Oasf-025 - [id number] - [id number] Implanted:Qty: 1 on 03/17/2023 by London Gaytan MD at [facility] N/A: Spine Lumbar BIOVENTUS 11/13/2027 OASF-025 / [id number] / Medtronic Inc Bmp Infuse Sm [id number] - [id number] Implanted:Qty: 1 on 03/17/2023 by London Gaytan MD at [facility] N/A: Spine Lumbar Medtronic Inc 10/23/2024 [id number] / / [id number] Spinal Elements Cage Spinal Lumbar 12 Degree Alif Lucent [id number] Peek [id number] - [id number] Implanted:Qty: 1 on 03/17/2023 by London Gaytan MD at [facility] N/A: Spine Lumbar Spinal Elements [id number] / / Spinal Elements Magnum+ 5.5mm 25mm Spine Screw Bone Nonsterile 76650-241 - [id number] Implanted:Qty: 2 on 03/17/2023 by London Gaytan MD at [facility] N/A: Spine Lumbar Spinal Elements [id number] / / Zavation Llc Zavation 16mm 1 Level Spine Cervical Plate Bone Nonsterile 300-0116 - [id number] Implanted:Qty: 1 on 03/17/2023 by London Gaytan MD at [facility] N/A: Spine Lumbar Zavation Llc 300-0116 / / Zavation Llc Zavation 4.5mm 18mm Self Tap Variable Angle Spine Screw Bone 305-4518 - [id number] Implanted:Qty: 4 on 03/17/2023 by London Gaytan MD at [facility] N/A: Spine Lumbar Zavation Llc [id number] / / Procedures Procedure Name Priority Date/Time Associated Diagnosis Comments SCREENING MAMMOGRAM Routine 06/14/2013 8 :37 AM CDT from Last 3 Months or Most Recently Relevant to Health Maintenance Results * Screening Mammogram (06/14/2013 8:37 AM CDT) Anatomical Region Laterality Modality Breast N/A Mammography 06/14/2013 8:37 AM CDT Narrative 06/17/2013 12:23 PM CDT Screening Mamm W Implants Bi Acc#: [id number] Performed by: andrea DATE OF EXAM: Jun [...] 02/12/2017 Screening Mamm W Implants Bi Acc#: [id number] Performed by: andrea DATE OF EXAM: Jun [...] Most Recently Relevant to Health Maintenance Insurance [email or web address] MEDICARE PPO [email or web address] [place] [address] [employer] CHOICE MEDICARE PPO Advance Directives For more information, please contact: [phone] * Full Code (Latest Code Status on File) Date Activated Date Inactivated Comments 03/17/2023 2:05 PM 03/19/2023 7:58 PM Care Teams Mechanical Spreader Operator Relationship Specialty Start Date End Date Micky Dickson MD PCP - General Family Medicine 08/10/23
--- OUTSIDE RECORDS SUMMARY | 2024-12-17 14:01 | XMS_ITS | Encounter Summary ---
Author Organization [facility] Address [address] [place] [address] Phone Care Team Providers Care Correspondence Coordinator Name Role Phone Mac Sher MD Unavailable [phone] Micky Dickson MD Primary Care Provider Robert Mae MD Unavailable Maryann El APRN, GLUE SPREADING MACHINE OPERATOR Unavailable + [phone] Germania Navarro APRN, CONTACT CENTER SPECIALIST Unavailable Leny Morales MD Unavailable [phone] Silva Vicente MD Primary Care Provider [phone] Reason for Visit * Reason Comments Medication Refill Encounter Details Date Type Department Care Team (Late st Contact Info) Description 01/08/2024 Refill [facility] - Gastroenterology - [place] [address] [place] [address] Germania Navarro APRN, CONTACT CENTER SPECIALIST [address] [place] [address] Medication Refill Social History Tobacco Use Types [...] Telephone Encounter - Monica Marcelo RN - 01/08/2024 3:46 PM CDT Medication [facility] and signed [facility] chronic medication standing order for pediatric and adult patients. documented in this encounter Plan of Treatment Upcoming Encounters Date Type Department Care Team (Latest Contact Info) Description 12/30/2024 8:00 AM CDT [facility] [address] [place] [address] Kwadwo Montalvo MD [address] [address] 12/30/2024 8:00 AM CDT - 12/30/2024 8:30 AM CDT [facility] [address] [place] [address] Kwadwo Montalvo MD [address] [address] EGD 01/03/2025 11:30 AM CDT [facility]ointment [facility] Res[facility] [address] [place] [address] Robert Mae MD [address] [place] [address] Discharge Disposition: Discharged to home or Selfcare 01/28/2025 10:45 AM CDT Office Visit [facility] - Pulmonology & Sleep Medicine - [place] [address] [place] [address] Robert Mae MD [address] [place] [address] 03/11/2025 10:30 AM CDT Office Visit [facility] - Neurology - [place] [address] [place] [address] Maryann El APRN, GLUE SPREADING MACHINE OPERATOR [address] [place] [address] Scheduled Procedures Name Priority Associated Diagnoses Date/Ti me EGD ULCER OF THE ESOPHAGUS 12/30/2024 8:00 AM CDT documented as of this encounter Visit Diagnoses Not on filedocumented in this encounter Additional Health Concerns Infection Onset Date Last Indicated Resolved Time COVID - 19 09/03/2024 09/03/2024 09/03/2024 9:25 PM ENROLLMENT COORDINATOR documented as of this encounter Care Teams Correspondence Coordinator Relationship Specialty Start Date End Date Micky Dickson MD [address] [place] [address] [address] [place] [address] PCP - General Family Medicine 09/25/23 07/04/24 Silva Vicente MD [address] [place] [address] [address] [place] [address] PCP - General Family Medicine 07/05/24 Mac Sher MD [address] [place] [address] Consulting Physician Neurology 09/15/15 Robert Mae MD [address] [place] [address] Consulting Physician Pulmonary Disease 10/27/22 Maryann El APRN, GLUE SPREADING MACHINE OPERATOR [address] [place] [address] Nurse Practitioner Advanced Practice Nurse 12/21/22 Germania Navarro APRN, CONTACT CENTER SPECIALIST [address] [place] [address] Nurse Practitioner Advanced Practice Nurse 10/04/23 Leny Morales MD [address] [place] [address] Consulting Physician Gastroenterology 01/19/23 documented as of this encounter
--- OUTSIDE RECORDS SUMMARY | 2024-12-17 14:01 | XMS_ITS | Encounter Summary ---
Author Organization [facility] Address [address] [place] [address] Phone Care Team Providers Care Latex Fashions Designer Name Role Phone Mac Sher MD Unavailable [phone] Micky Dickson MD Primary Care Provider Robret Mae MD Unavailable Maryann El APRN, KNOBBER Unavailable + [phone] Germania Navarro APRN, DIRECTOR OF MARKETING AND PROMOTIONS Unavailable Leny Morales MD Unavailable [phone] Silva Vicente MD Primary Care Provider [phone] Reason for Visit * Reason Comments Medication Refill Encounter Details Date Type Department Care Team (Late st Contact Info) Description 01/24/2024 Refill [facility] - Gastroenterology - [place] [address] [place] [address] Leny Morales MD [address] [place] [address] Medication Refill Social History Tobacco Use Types [...] Telephone Encounter - Monica Marcelo RN - 01/24/2024 2:48 PM CDT [facility] order for pediatric and adult patients. documented in this encounter Plan of Treatment Upcoming Encounters Date Type Department Care Team (Latest Contact Info) Description 12/30/2024 8:00 AM CDT [facility] Per[facility] [address] [place] [address] Kwadwo Montalvo MD [address] [address] 12/30/2024 8:00 AM CDT - 12/30/2024 8:30 AM CDT [facility] [address] [place] [address] Kwadwo Montalvo MD [address] [address] EGD 01/03/2025 11:30 AM CDT [facility]ointment [facility] Res[facility] [address] [place] [address] Robert Mae MD [address] [place] [address] Discharge Disposition: Discharged to home or Selfcare 01/28/2025 10:45 AM CDT Office Visit [facility] - Pulmonology & Sleep Medicine [facility] [address] [place] [address] Robert Mae MD [address] [place] [address] 03/11/2025 10:30 AM CDT Office Visit [facility] - Neurology - [place] [address] [place] [phone] Maryann El APRN, KNOBBER [address] [place] [address] Scheduled Procedures Name Priority Associated Diagnoses Date/Ti me EGD ULCER OF THE ESOPHAGUS 12/30/2024 8:00 AM CDT documented as of this encounter Visit Diagnoses Not on filedocumented in this encounter Additional Health Concerns Infection Onset Date Last Indicated Resolved Time COVID - 19 09/03/2024 09/03/2024 09/03/2024 9:25 PM DRAFTER MARINE documented as of this encounter Care Teams Latex Fashions Designer Relationship Specialty Start Date End Date Micky Dickson MD [address] [place] [address] [address] [place] [address] PCP - General Family Medicine 09/25/23 07/04/24 Silva Vicente MD [address] [place] [address] [address] [place] [address] PCP - General Family Medicine 07/05/24 Mac Sher MD [address] [place] [address] Consulting Physician Neurology 09/15/15 Robert Mae MD [address] [place] [address] Consulting Physician Pulmonary Disease 10/27/22 Maryann El, TUMBLER DRIER OPERATOR, KNOBBER [address] [place] [address] Nurse Practitioner Advanced Practice Nurse 12/21/22 Germania Navarro APRN, DIRECTOR OF MARKETING AND PROMOTIONS [address] [place] [address] Nurse Practitioner Advanced Practice Nurse 10/04/23 Leny Morales MD [address] [place] [address] Consulting Physician Gastroenterology 01/19/23 documented as of this encounter
--- OUTSIDE RECORDS SUMMARY | 2024-12-17 14:01 | XMS_ITS | Encounter Summary ---
Author Organization [facility] Address [address] [place] [address] Phone Care Team Providers Care Instrument Repairer Name Role Phone Mac Sher MD Unavailable [phone] Micky Dickson MD Primary Care Provider [phone] Robert Mae MD Unavailable Maryann El APRN, SECURITY LEAD Unavailable + [phone] Germania Navarro APRN, HEATING SYSTEMS INSTALLER Unavailable Leny Morales MD Unavailable [phone] Silva Vicente MD Primary Care Provider [phone] Reason for Visit * Reason Comments Medication Refill Encounter Details Date Type Department Care Team (Late st Contact Info) Description 01/30/2024 Refill [facility] - Neurology - [place] #2 [place] [address] Maryann El APRN, SECURITY LEAD #2 [place] [address] Medication Refill Social History Tobacco Use Types [...] encounter Miscellaneous Notes * Telephone Encounter - Manisha Chavez RN - 01/30/2024 8:18 AM CDT Medication failed the protocol, provider to review and approve the medication order if appropriate. Requested Prescriptions Pending Prescriptions Disp Refills Topiramate 50 MG Tablet [Pharmacy Med Name: Topiramate 50 MG Oral Tablet] 60 Tablet 3 Sig: Take 1 tablet by mouth twice daily Not Delegated - Anticonvulsants Excluding Benzodiazepines Protocol Failed - 01/30/2024 6:52 AM Failed - This refill cannot be delegated Passed - Visit with relevant provider in past 12 months or upcoming 90 days Recent Visits Date Type Provider Dept 12/15/23 Procedure Visit Mac Sher MD [facility] Neurology Dawnanancy [place]imes 11/16/23 Office Visit Mac Sher MD [facility] Femitess [place] 08/25/23 Procedure Visit Mac Sher MD [facility]rology [facility] Bang Grimes 05/26/23 Procedure Visit Mac Sher MD [facility] Femi'tess [place] 05/09/23 Telemedicine Mac Sher MD [facility] Femi'tess [place] 03/01/23 Procedure Visit Mac Sher MD [facility] Bang [place] 02/20/23 Office Visit Maryann El APRN, [facility] Neurology [facility] Showing recent visits within past 365 days and meeting all other requirements Future Appointments Date Type Provider Dept 02/23/24 Appointment Maryann El APRN, [facility] Neurology [facility] 03/08/24 Appointment Mac Sher MD [facility] Neurology [facility] Showing future appointments within next 90 days and meeting all other requirements Atogepant (Qulipta) 60 MG Tablet [Pharmacy Med Name: Qulipta 60 MG Oral Tablet] 30 Tablet 3 Sig: Take 1 tablet by mouth once daily There is no refill protocol information for this order documented in this encounter Plan of Treatment Upcoming Encounters Date Type Department Care Team (Latest Contact Info) Description 12/30/2024 8:00 AM CDT Hospital Encounter [facility] Gi Lab Periop 1 [place] [address] Kwadwo Montalvo MD [address] [address] 12/30/2024 8:00 AM CDT - 12/30/2024 8:30 AM CDT Surgery [facility] Gi Lab Periop 1 [place] [address] Kwadwo Montalvo MD [address] [address] EGD 01/03/2025 11:30 AM CDT Appointment [facility] Respiratory Therapy 1 [place] [address] Robert Mae MD #2 [place] [address] Discharge Disposition: Discharged to home or Selfcare 01/28/2025 10:45 AM CDT Office Visit [facility] - Pulmonology & Sleep Medicine - [place] #2 [place] [address] Robert Mae MD #[address] [place] [address] 03/11/2025 10:30 AM CDT Office Visit [facility] - Neurology - [place] #2 [facility] [facility] [address] Maryann El, CARD PUNCHER, SECURITY LEAD [address] [place] [address] Scheduled Procedures Name Priority Associated Diagnoses Date/Ti me EGD ULCER OF THE ESOPHAGUS 12/30/2024 8:00 AM CDT documented as of this encounter Visit Diagnoses Diagnosis Chronic migraine w/o aura w/o status migrainosus, not intractable Chronic migraine without aura, without mention of intractable migraine without mention of status migrainosus documented in this encounter Additional Health Concerns Infection Onset Date Last Indicated Resolved Time COVID - 19 09/03/2024 09/03/2024 09/03/2024 9:25 PM ADVERTISING ASSISTANT documented as of this encounter Care Teams Instrument Repairer Relationship Specialty Start Date End Date Micky Dickson MD 4 [facility] [address] [place] [address] PCP - General Family Medicine 09/25/23 07/04/24 Silva Vicente MD [address] [place] [address] [address] CASTRO [address] [place] [address] [address] PCP - General Family Medicine 07/05/24 Mac Sher MD #2 [place] [address] Consulting Physician Neurology 09/15/15 Robert Mae MD #2 [place] [address] Consulting Physician Pulmonary Disease 10/27/22 Maryann El APRN, SECURITY LEAD #2 [place] [address] Nurse Practitioner Advanced Practice Nurse 12/21/22 Germania Navarro APRN, HEATING SYSTEMS INSTALLER #2 [place] [address] Nurse Practitioner Advanced Practice Nurse 10/04/23 Leny Morales MD #2 [place] [address] Consulting Physician Gastroenterology 01/19/23 documented as of this encounter
--- OUTSIDE RECORDS SUMMARY | 2024-12-17 14:01 | XMS_ITS | Encounter Summary ---
Author Organization [facility] Address [address] [place] [address] Phone Care Team Providers Care Diesel Powerplant Mechanic Name Role Phone Mac Sher MD Unavailable [phone] Micky Dickson MD Primary Care Provider Robert Mae MD Unavailable Maryann El APRN, CERAMICS TEST ENGINEER Unavailable + [phone] Germania Navarro APRN, OR RN Unavailable Leny Morales MD Unavailable [phone] Silva Vicente MD Primary Care Provider [phone] Reason for Visit * Reason Comments Medication Refill Encounter Details Date Type Department Care Team (Late st Contact Info) Description 02/08/2024 [facility]ill [facility] - Gastroenterology - [place] #2 [place] [address] Germania Navarro APRN, OR RN #2 [place] [address] Medication Refill Social History Tobacco Use Types [...] Telephone Encounter - Monica Marcelo RN - 02/08/2024 11:24 AM CDT Medication [facility] and [facility] standing order for pediatric and adult patients. documented in this encounter Plan of Treatment Upcoming Encounters Date Type Department Care Team (Latest Contact Info) Description 12/30/2024 8:00 AM CDT [facility] 1 [place] [address] Kwadwo Montalvo MD [address] [address] 12/30/2024 8:00 AM CDT - 12/30/2024 8:30 AM CDT [facility] 1 [place] [address] Kwadwo Montalvo MD [address] [address] EGD 01/03/2025 11:30 AM CDT [facility] 1 [place] [address] Robert Mae MD #2 [place] [address] Discharge Disposition: Discharged to home or Selfcare 01/28/2025 10:45 AM CDT Office Visit [facility] - Pulmonology & Sleep Medicine - [place] #2 [place] [address] Robert Mae MD #2 [place] [address] 03/11/2025 10:30 AM CDT Office Visit [facility] - Neurology - [place] #2 [place] [address] Maryann El APRN, CERAMICS TEST ENGINEER #2 [place] [address] Scheduled Procedures Name Priority Associated Diagnoses Date/Ti me EGD ULCER OF THE ESOPHAGUS 12/30/2024 8:00 AM CDT documented as of this encounter Visit Diagnoses Not on filedocumented in this encounter Additional Health Concerns Infection Onset Date Last Indicated Resolved Time COVID - 19 09/03/2024 09/03/2024 09/03/2024 9:25 PM CAUSTIC MIXER documented as of this encounter Care Teams Diesel Powerplant Mechanic Relationship Specialty Start Date End Date Micky Dickson MD [address] [place] [address] [address] [place] [address] PCP - General Family Medicine 09/25/23 07/04/24 Silva Vicente MD [address] [place] [address] [address] [place] [address] PCP - General Family Medicine 07/05/24 Mac Sher MD #2 [place] [address] Consulting Physician Neurology 09/15/15 Robert Mae MD #2 [place] [address] Consulting Physician Pulmonary Disease 10/27/22 Maryann El APRN, CERAMICS TEST ENGINEER #2 [place] [address] Nurse Practitioner Advanced Practice Nurse 12/21/22 Germania Navarro APRN, OR RN #2 [place] [address] Nurse Practitioner Advanced Practice Nurse 10/04/23 Leny Morales MD #2 [place] [address] Consulting Physician Gastroenterology 01/19/23 documented as of this encounter
--- OUTSIDE RECORDS SUMMARY | 2024-12-17 14:01 | XMS_ITS | Encounter Summary ---
Author Organization [facility] Address [address] [place] [address] Phone Care Team Providers Care Business Practices Supervisor Name Role Phone Mac Sher MD Unavailable [phone] Winifred Armstrong BATTERY INSTALLER, RAIL CAR REPAIR CARMAN Primary Care Provider Micky Dickson MD Primary Care Provider [phone] Robert Mae MD Unavailable Maryann El APRN, NURSING HOME ADMISSIONS DIRECTOR Unavailable + [phone] Germania Navarro APRN, RAIL CAR REPAIR CARMAN Unavailable Leny Morales MD Unavailable [phone] Silva Vicente MD Primary Care Provider [phone] Reason for Visit * Reason Comments Medication Refill Encounter Details Date Type Department Care Team (Late st Contact Info) Description 01/01/2020 Refill [facility] - [facility]rology - [place] #1 [facility] [place] [address] Justin Johnson PAC Medication Refill Social History Tobacco Use Types [...] Description 12/30/2024 8:00 AM CDT [facility] 1 [place] [address] Kwadwo Montalvo MD 2 [facility] [address] [address] 12/30/2024 8:00 AM CDT - 12/30/2024 8:30 AM CDT [facility] 1 [place] [address] Kwadwo Montalvo MD 2 [facility] [address] [address] EGD 01/03/2025 11:30 AM CDT [facility] 1 [place] [address] Robert Mae MD #2 [place] [address] Discharge Disposition: Discharged to home or Selfcare 01/28/2025 10:45 AM CDT Office Visit [facility] - Pulmonology & Sleep Medicine - [place] #2 [place] [address] Robert Mae MD #2 [place] [address] 03/11/2025 10:30 AM CDT Office Visit [facility] - Neurology - [place] #2 [place] [address] Maryann El, BATTERY INSTALLER, NURSING HOME ADMISSIONS DIRECTOR #2 [place] [address] Scheduled Procedures Name Priority Associated Diagnoses Date/Ti me EGD ULCER OF THE ESOPHAGUS 12/30/2024 8:00 AM CDT documented as of this encounter Visit Diagnoses Not on filedocumented in this encounter Additional Health Concerns Infection Onset Date Last Indicated Resolved Time COVID - 19 06/23/2021 06/23/2021 06/29/2021 9:24 PM CDT COVID - 19 09/03/2024 09/03/2024 09/03/2024 9:25 PM AUTOMATIC CLIPPER AND STRIPPER documented as of this encounter Care Teams Business Practices Supervisor Relationship Specialty Start Date End Date Winifred Armstrong, BATTERY INSTALLER, RAIL CAR REPAIR CARMAN [address] [place] [address] PCP - General Advanced Practice Nurse 10/17/19 Micky Dickson MD [address] [place] [address] DR CASTRO [address] [place] [address] PCP - General Family Medicine 09/25/23 07/04/24 Silva Vicente MD [address] [place] [address] DR CASTRO [address] [place] [address] PCP - General Family Medicine 07/05/24 Mac Sher MD #2 [place] [address] Consulting Physician Neurology 09/15/15 Robert Mae MD #2 [place] [address] Consulting Physician Pulmonary Disease 10/27/22 Maryann El APRN, NURSING HOME ADMISSIONS DIRECTOR #2 [place] [address] Nurse Practitioner Advanced Practice Nurse 12/21/22 Germania Navarro APRN, RAIL CAR REPAIR CARMAN #2 [place] [address] Nurse Practitioner Advanced Practice Nurse 10/04/23 Leny Morales MD #2 [place] [address] Consulting Physician Gastroenterology 01/19/23 documented as of this encounter
--- OUTSIDE RECORDS SUMMARY | 2024-12-17 14:01 | XMS_ITS | Encounter Summary ---
Author Organization [facility] Address [address] [place] [address] Phone Care Team Providers Care Environmental Studies Professor Name Role Phone Mac Sher MD Unavailable [phone] Winifred Armstrong OCCUPATIONAL HEALTH AND SAFETY OFFICER, ORGANIZATIONAL RESEARCH CONSULTANT Primary Care Provider Micky Dickson MD Primary Care Provider Robert Mae MD Unavailable Maryann El APRN, MUCK HAULER Unavailable + [phone] Germania Navarro APRN, ORGANIZATIONAL RESEARCH CONSULTANT Unavailable Leny Morales MD Unavailable [phone] Silva Vicente MD Primary Care Provider [phone] Reason for Visit * Reason Comments Medication Refill Encounter Details Date Type Department Care Team (Late st Contact Info) Description 10/25/2021 Refill [facility] - Neurology - [place] #2 [place] [address] Mac Sher MD #2 [place] [address] Medication Refill Social History Tobacco [...] COVID-19? No / Unsure 10/07/2021 5:20 AM MULTISENSOR INTELLIGENCE OFFICER documented as of this encounter Plan of Treatment Upcoming Encounters Date Type Department Care Team (Latest Contact Info) Description 12/30/2024 8:00 AM CDT [facility] 1 [place] [address] Kwadwo Montalvo MD [address] [address] 12/30/2024 8:00 AM CDT - 12/30/2024 8:30 AM CDT [facility] 1 [place] [address] Kwadwo Montalvo MD [address] [address] EGD 01/03/2025 11:30 AM CDT [facility] 1 [place] [address] Robert Mae MD #2 [place] [address] Discharge Disposition: Discharged to home or Selfcare 01/28/2025 10:45 AM CDT Office Visit [facility] - Pulmonology & Sleep Medicine - [place] #2 [place] [address] Robert Mae MD #2 [place] [address] 03/11/2025 10:30 AM CDT [facility] [place] #2 [place] [address] Maryann El, OCCUPATIONAL HEALTH AND SAFETY OFFICER, MUCK HAULER #[address] [place] [address] Scheduled Procedures Name Priority Associated Diagnoses Date/Ti me EGD ULCER OF THE ESOPHAGUS 12/30/2024 8:00 AM CDT documented as of this encounter Visit Diagnoses Not on filedocumented in this encounter Additional Health Concerns Infection Onset Date Last Indicated Resolved Time COVID - 19 09/03/2024 09/03/2024 09/03/2024 9:25 PM MULTISENSOR INTELLIGENCE OFFICER documented as of this encounter Care Teams Environmental Studies Professor Relationship Specialty Start Date End Date Winifred Armstrong, OCCUPATIONAL HEALTH AND SAFETY OFFICER, ORGANIZATIONAL RESEARCH CONSULTANT [address] [place] [address] PCP - General Advanced Practice Nurse 10/17/19 Micky Dickson MD [address] [place] [address] [place] [address] PCP - General Family Medicine 09/25/23 07/04/24 Silva Vicente MD [address] [place] [address] [place] [address] PCP - General Family Medicine 07/05/24 Mac Sher MD #[address] [place] [address] Consulting Physician Neurology 09/15/15 Robert Mae MD #[address] [place] [address] Consulting Physician Pulmonary Disease 10/27/22 Maryann El APRN, MUCK HAULER #[address] [place] [address] Nurse Practitioner Advanced Practice Nurse 12/21/22 Germania Navarro APRN, ORGANIZATIONAL RESEARCH CONSULTANT #2 [place] [address] Nurse Practitioner Advanced Practice Nurse 10/04/23 Leny Morales MD #2 [place] [address] Consulting Physician Gastroenterology 01/19/23 documented as of this encounter
--- OUTSIDE RECORDS SUMMARY | 2024-12-17 14:01 | XMS_ITS | Encounter Summary ---
Author Organization [facility] Address [address] [place] [address] Phone Care Team Providers Care Purse Maker Name Role Phone Mac Sher MD Unavailable [phone] Winifred Armstrong ANNEALING OPERATOR, SUPERVISOR ELECTRIC MOTOR TESTING Primary Care Provider Micky Dickson MD Primary Care Provider [phone] Robert Mae MD Unavailable Maryann El APRN, TOWER WATCHMAN Unavailable + [phone] Germania Naavrro APRN, SUPERVISOR ELECTRIC MOTOR TESTING Unavailable Leny Morales MD Unavailable [phone] Silva Vicente MD Primary Care Provider [phone] Reason for Visit * Reason Comments Medication Refill Encounter Details Date Type Department Care Team (Late st Contact Info) Description 06/24/2020 Refill [facility] - Neurology - [place] #1 [place] [address] Mac Sher MD #2 [place] [address] Medication Refill Social History Tobacco [...] have Coronavirus / COVID-19? No / Unsure 06/26/2020 10:08 AM CDT documented as of this encounter Plan of Treatment Upcoming Encounters Date Type Department Care Team (Latest Contact Info) Description 12/30/2024 8:00 AM CDT [facility] 1 [place] [address] Kwadwo Montalvo MD [address] [address] 12/30/2024 8:00 AM CDT - 12/30/2024 8:30 AM CDT [facility] 1 [place] [address] Kwadwo Montalvo MD [address] [address] EGD 01/03/2025 11:30 AM CDT [facility] Res[facility] 1 [place] [address] Robert Mae MD #2 [place] [address] Discharge Disposition: Discharged to home or Selfcare 01/28/2025 10:45 AM CDT [facility] - [place] #2 [place] [address] Robert Mae MD #2 [place] [address] 03/11/2025 10:30 AM CDT [facility] - [place] #2 [place] [address] Maryann El APRN, TOWER WATCHMAN #2 [place] [address] Scheduled Procedures Name Priority Associated Diagnoses Date/Ti me EGD ULCER OF THE ESOPHAGUS 12/30/2024 8:00 AM CDT documented as of this encounter Visit Diagnoses Not on filedocumented in this encounter Additional Health Concerns Infection Onset Date Last Indicated Resolved Time COVID - 19 06/23/2021 06/23/2021 06/29/2021 9:24 PM CDT COVID - 19 09/03/2024 09/03/2024 09/03/2024 9:25 PM CODING SUPPORT SPECIALIST documented as of this encounter Care Teams Purse Maker Relationship Specialty Start Date End Date Winifred Armstrong APRN, SUPERVISOR ELECTRIC MOTOR TESTING [address] [place] [address] PCP - General Advanced Practice Nurse 10/17/19 Micky Dickson MD [address] [place] [address] [place] [address] PCP - General Family Medicine 09/25/23 07/04/24 Silva Vicente MD [address] [place] [address] [place] [address] PCP - General Family Medicine 07/05/24 Mac Sher MD #2 [place] [address] Consulting Physician Neurology 09/15/15 Robert Mae MD #2 [place] [address] Consulting Physician Pulmonary Disease 10/27/22 Maryann El APRN, TOWER WATCHMAN #2 [place] [address] Nurse Practitioner Advanced Practice Nurse 12/21/22 Germania Navarro APRN, SUPERVISOR ELECTRIC MOTOR TESTING #2 [place] [address] Nurse Practitioner Advanced Practice Nurse 10/04/23 Leny Morales MD #2 [place] [address] Consulting Physician Gastroenterology 01/19/23 documented as of this encounter
--- OUTSIDE RECORDS SUMMARY | 2024-12-17 14:01 | XMS_ITS | Encounter Summary ---
Author Organization [facility] Address [address] [place] [address] Phone Care Team Providers Care Hoop Maker Helper Machine Name Role Phone Mac Sher MD Unavailable [phone] Winifred Armstrong FINISHING AREA SUPERVISOR, OR SCRUB TECH Primary Care Provider Micky Dickson MD Primary Care Provider Robert Mae MD Unavailable Maryann El APRN, FLIGHT OPERATIONS COORDINATOR Unavailable + [phone] Germania Navarro APRN, OR SCRUB TECH Unavailable Leny Morales MD Unavailable [phone] Silva Vicente MD Primary Care Provider [phone] Reason for Visit * Reason Comments Medication Refill Encounter Details Date Type Department Care Team (Late st Contact Info) Description 11/10/2022 Refill [facility] - Neurology - [place] #[address] [place] [address] Mac Sher MD #2 [place] [address] Medication Refill Social History Tobacco [...] suspected to have Coronavirus/COVID-19? No / Unsure 11/11/2022 10:19 AM EGG CRATER documented as of this encounter Plan of Treatment Upcoming Encounters Date Type Department Care Team (Latest Contact Info) Description 12/30/2024 8:00 AM CDT [facility] 1 [place] [address] Kwadwo Montalvo MD [address] [address] 12/30/2024 8:00 AM CDT - 12/30/2024 8:30 AM CDT [facility] 1 [place] [address] Kwadwo Montalvo MD [address] [address] EGD 01/03/2025 11:30 AM CDT [facility] 1 [place] [address] Robert Mae MD #2 [place] [address] Discharge Disposition: Discharged to home or Selfcare 01/28/2025 10:45 AM CDT [facility] - [place] #[address] [place] [address] Robert Mae MD #2 [place] [address] 03/11/2025 10:30 AM CDT [facility] - [place] #[address] [place] [address] Maryann El FINISHING AREA SUPERVISOR, FLIGHT OPERATIONS COORDINATOR #2 [place] [address] Scheduled Procedures Name Priority Associated Diagnoses Date/Ti me EGD ULCER OF THE ESOPHAGUS 12/30/2024 8:00 AM CDT documented as of this encounter Visit Diagnoses Not on filedocumented in this encounter Additional Health Concerns Infection Onset Date Last Indicated Resolved Time COVID - 19 09/03/2024 09/03/2024 09/03/2024 9:25 PM EGG CRATER documented as of this encounter Care Teams Hoop Maker Helper Machine Relationship Specialty Start Date End Date Winifred Armstrong APRN, OR SCRUB TECH [address] [place] [address] PCP - General Advanced Practice Nurse 10/17/19 Micky Dickson MD [address] [place] [address] [place] [address] PCP - General Family Medicine 09/25/23 07/04/24 Silva Vicente MD [address] [place] [address] [place] [address] PCP - General Family Medicine 07/05/24 Mac Sher MD #2 [place] [address] Consulting Physician Neurology 09/15/15 Robert Mae MD #2 [place] [address] Consulting Physician Pulmonary Disease 10/27/22 Maryann El APRN, FLIGHT OPERATIONS COORDINATOR #2 [place] [address] Nurse Practitioner Advanced Practice Nurse 12/21/22 Germania Navarro APRN, OR SCRUB TECH #2 [place] [address] Nurse Practitioner Advanced Practice Nurse 10/04/23 Leny Morales MD #2 [place] [address] Consulting Physician Gastroenterology 01/19/23 documented as of this encounter
--- OUTSIDE RECORDS SUMMARY | 2024-12-17 14:01 | XMS_ITS | Encounter Summary ---
Author Organization [facility] Address [address] [place] [address] Phone Care Team Providers Care Freight Router Name Role Phone Mac Sher MD Unavailable [phone] Winifred Armstrong DUE DILIGENCE COORDINATOR, PIT HAND Primary Care Provider Micky Dickson MD Primary Care Provider Robert Mae MD Unavailable Maryann El APRN, HEALTH CLINICIAN Unavailable + [phone] Germania Navarro APRN, PIT HAND Unavailable Leny Morales MD Unavailable [phone] Silva Vicente MD Primary Care Provider [phone] Reason for Visit * Reason Comments Medication Refill Encounter Details Date Type Department Care Team (Late st Contact Info) Description 10/10/2022 Refill [facility] - Neurology [facility] #2 [place] [address] Mac Sher MD #2 [place] [address] Medication Refill Social History Tobacco [...] suspected to have Coronavirus/COVID-19? No / Unsure 09/26/2022 9:35 AM SUSTAINABILITY ANALYST documented as of this encounter Plan of Treatment Upcoming Encounters Date Type Department Care Team (Latest Contact Info) Description 12/30/2024 8:00 AM CDT [facility] 1 [place] [address] Kwadwo Montalvo MD [address] [address] 12/30/2024 8:00 AM CDT - 12/30/2024 8:30 AM CDT [facility] 1 [place] [address] Kwadwo Montalvo MD [address] [address] EGD 01/03/2025 11:30 AM CDT [facility]ointment [facility] Res[facility] 1 [place] [address] Robert Mae MD #2 [place] [address] Discharge Disposition: Discharged to home or Selfcare 01/28/2025 10:45 AM CDT [facility] - [place] #2 [place] [address] Robert Mae MD #2 [place] [address] 03/11/2025 10:30 AM CDT [facility] [place] #2 [place] [address] Maryann El, DUE DILIGENCE COORDINATOR, HEALTH CLINICIAN #2 [place] [address] Scheduled Procedures Name Priority Associated Diagnoses Date/Ti me EGD ULCER OF THE ESOPHAGUS 12/30/2024 8:00 AM CDT documented as of this encounter Visit Diagnoses Not on filedocumented in this encounter Additional Health Concerns Infection Onset Date Last Indicated Resolved Time COVID - 19 09/03/2024 09/03/2024 09/03/2024 9:25 PM SUSTAINABILITY ANALYST documented as of this encounter Care Teams Freight Router Relationship Specialty Start Date End Date Winifred Armstrong, DUE DILIGENCE COORDINATOR, PIT HAND [address] [place] [address] PCP - General Advanced Practice Nurse 10/17/19 Micky Dickson MD [address] [place] [address] [place] [address] PCP - General Family Medicine 09/25/23 07/04/24 Silva Vicente MD [address] [place] [address] [place] [address] PCP - General Family Medicine 07/05/24 Mac Sher MD #2 [place] [address] Consulting Physician Neurology 09/15/15 Robert Mae MD #2 [place] [address] Consulting Physician Pulmonary Disease 10/27/22 Maryann El APRN, HEALTH CLINICIAN #2 [place] [address] Nurse Practitioner Advanced Practice Nurse 12/21/22 Germania Navarro APRN, PIT HAND #2 [place] [address] Nurse Practitioner Advanced Practice Nurse 10/04/23 Leny Morales MD #2 [place] [address] Consulting Physician Gastroenterology 01/19/23 documented as of this encounter
--- OUTSIDE RECORDS SUMMARY | 2024-12-17 14:01 | XMS_ITS | Encounter Summary ---
Author Organization [facility] Address [address] [place] [address] Phone Care Team Providers Care Reporting Lead Name Role Phone Mac Sher MD Unavailable Winifred Armstrong PATIENT ACCOUNT ANALYST, MECHANICAL PROCESS ENGINEER Primary Care Provider Micky Dickson MD Primary Care Provider Robert Mae MD Unavailable Maryann El APRN, APPEALS NURSE Unavailable + [phone] Germania Navarro APRN, MECHANICAL PROCESS ENGINEER Unavailable Leny Morales MD Unavailable [phone] Silva Vicente MD Primary Care Provider [phone] Reason for Visit * Reason Comments Medication Refill Encounter Details Date Type Department Care Team (Late st Contact Info) Description 09/08/2022 [facility]ill [facility] - [place] #2 [place] [address] Joann Bowers Juana, PAC #2 [place] [address] Medication Refill Social History Tobacco Use Types [...] suspected to have Coronavirus/COVID-19? No / Unsure 09/02/2022 9:40 AM AGRICULTURAL CROP FARM MANAGER documented as of this encounter Miscellaneous Notes * Telephone Encounter - Susan Aaron RN - 09/08/2022 8:02 AM CST Pharmacy requesting refill of: Requested Prescriptions Pending Prescriptions Disp Refills ??? esomeprazole (NexIUM) 20 MG CAPSULE DELAYED RELEASE [Pharmacy Med Name: Esomeprazole Magnesium 20 MG Oral Capsule Delayed Release] 90 Capsule 0 Sig: Take 1 capsule by mouth once daily Last fill: 06/08/22 Patients last OV with GI: 09/03/21 Next Office Visit with GI: Patient made an appointment for 09/30/22. Refill pended, please review. CULTURAL CROP FARM MANAGER CULTURAL CROP FARM MANAGER documented in this encounter Plan of Treatment Upcoming Encounters Date Type Department Care Team (Latest Contact Info) Description 12/30/2024 8:00 AM CDT Hospital Encounter [facility] 1 [facility] [place] [address] Kwadwo Montalvo MD [address] [place] [facility]. [address] [place] [address] 12/30/2024 8:00 AM CDT - 12/30/2024 8:30 AM CDT [facility] 1 [facility] [place] [address] Kwadwo Montalvo MD [address] [address] EGD 01/03/2025 11:30 AM CDT [facility] 1 [facility] [place] [address] Robert Mae MD #2 [place] [address] Discharge Disposition: Discharged to home or Selfcare 01/28/2025 10:45 AM CDT Office Visit [facility] - Pulmonology & Sleep Medicine - [place] #2 [place] [address] Robert Mae MD #2 [place] [address] 03/11/2025 10:30 AM CDT Office Visit [facility] - Neurology - [place] #2 [place] [address] Maryann El, PATIENT ACCOUNT ANALYST, APPEALS NURSE #2 [place] [address] Scheduled Procedures Name Priority Associated Diagnoses Date/Ti me EGD ULCER OF THE ESOPHAGUS 12/30/2024 8:00 AM CDT documented as of this encounter Visit Diagnoses Not on filedocumented in this encounter Additional Health Concerns Infection Onset Date Last Indicated Resolved Time COVID - 19 09/03/2024 09/03/2024 09/03/2024 9:25 PM AGRICULTURAL CROP FARM MANAGER documented as of this encounter Care Teams Reporting Lead Relationship Specialty Start Date End Date Winifred Armstrong, PATIENT ACCOUNT ANALYST, MECHANICAL PROCESS ENGINEER [address] [place] [address] PCP - General Advanced Practice Nurse 10/17/19 Micky Dickson MD [address] [place] [address] [place] [address] PCP - General Family Medicine 09/25/23 07/04/24 Silva Vicente MD [address] [place] [address] [place] [address] PCP - General Family Medicine 07/05/24 Mac Sher MD #2 [place] [address] Consulting Physician Neurology 09/15/15 Robert Mae MD #2 [place] [address] Consulting Physician Pulmonary Disease 10/27/22 Maryann El, PATIENT ACCOUNT ANALYST, APPEALS NURSE #2 [place] [address] Nurse Practitioner Advanced Practice Nurse 12/21/22 Germania Navarro APRN, MECHANICAL PROCESS ENGINEER #2 [place] [address] Nurse Practitioner Advanced Practice Nurse 10/04/23 Leny Morales MD #2 [place] [address] Consulting Physician Gastroenterology 01/19/23 documented as of this encounter
--- OUTSIDE RECORDS SUMMARY | 2024-12-17 14:01 | XMS_ITS | Encounter Summary ---
Author Organization [facility] Address [address] [place] [address] Phone Care Team Providers Care Bulwark Carpenter Name Role Phone Mac Sher MD Unavailable [phone] Micky Dickson MD Primary Care Provider Robert Mae MD Unavailable Maryann El APRN, DOOR FRAME BUILDER Unavailable + [phone] Germania Navarro APRN, PAD HAND Unavailable Leny Morales MD Unavailable [phone] Silva Vicente MD Primary Care Provider [phone] Reason for Visit * Reason Comments Medication Refill Encounter Details Date Type Department Care Team (Late st Contact Info) Description 12/22/2023 Refill [facility] - [place] #2 [place] [address] Germania Navarro APRN, PAD HAND #2 [place] [address] Medication Refill Social History Tobacco Use Types [...] Telephone Encounter - Monica Marcelo RN - 12/26/2023 10:31 AM SKIRT CLIPPER Medication [facility] and [facility] standing order for pediatric and adult patients. T CLIPPER documented in this encounter Plan of Treatment Upcoming Encounters Date Type Department Care Team (Latest Contact Info) Description 12/30/2024 8:00 AM CDT [facility] 1 [place] [address] Kwadwo Montalvo MD [address] [address] 12/30/2024 8:00 AM CDT - 12/30/2024 8:30 AM CDT [facility] 1 [place] [address] Kwadwo Montalvo MD [address] [address] EGD 01/03/2025 11:30 AM CDT [facility] 1 [place] [address] Robert Mae MD #2 [place] [address] Discharge Disposition: Discharged to home or Selfcare 01/28/2025 10:45 AM CDT Office Visit [facility] - Pulmonology & Sleep Medicine - [place] #2 [place] [address] Robert Mae MD #2 [place] [address] 03/11/2025 10:30 AM CDT [facility] [place] #2 [place] [address] Maryann El, EDUCATION PROGRAM MANAGER, DOOR FRAME BUILDER #2 [place] [address] Scheduled Procedures Name Priority Associated Diagnoses Date/Ti me EGD ULCER OF THE ESOPHAGUS 12/30/2024 8:00 AM CDT documented as of this encounter Visit Diagnoses Not on filedocumented in this encounter Additional Health Concerns Infection Onset Date Last Indicated Resolved Time COVID - 19 09/03/2024 09/03/2024 09/03/2024 9:25 PM SKIRT CLIPPER documented as of this encounter Care Teams Bulwark Carpenter Relationship Specialty Start Date End Date Micky Dickson MD [address] [place] [address] [address] [place] [address] PCP - General Family Medicine 09/25/23 07/04/24 Silva Vicente MD [address] [place] [address] [address] [place] [address] PCP - General Family Medicine 07/05/24 Mac Sher MD #2 [place] [address] Consulting Physician Neurology 09/15/15 Robert Mae MD #2 [place] [address] Consulting Physician Pulmonary Disease 10/27/22 Maryann El APRN, DOOR FRAME BUILDER #2 [place] [address] Nurse Practitioner Advanced Practice Nurse 12/21/22 Germania Navarro APRN, PAD HAND #2 [place] [address] Nurse Practitioner Advanced Practice Nurse 10/04/23 Leny Morales MD #2 [place] [address] Consulting Physician Gastroenterology 01/19/23 documented as of this encounter
--- OUTSIDE RECORDS SUMMARY | 2024-12-17 14:02 | XMS_ITS | Encounter Summary ---
Author Organization [facility] Address [address] [place] [address] Phone Care Team Providers Care Mattress Packer Name Role Phone Mac Sher MD Unavailable [phone] Micky Dickson MD Primary Care Provider Robert Mae MD Unavailable Maryann El APRN, WHISKEY PROOF READER Unavailable + [phone] Germania Navarro APRN, EDGER RUNNER Unavailable Leny Morales MD Unavailable [phone] Silva Vicente MD Primary Care Provider [phone] Reason for Visit * Reason Comments Medication Refill Encounter Details Date Type Department Care Team (Late st Contact Info) Description 10/21/2023 [facility]ill [facility] - [place] #2 [place] [address] Germania Navarro APRN, EDGER RUNNER #2 [place] [address] Medication Refill Social History Tobacco Use Types [...] Telephone Encounter - Monica Marcelo RN - 10/24/2023 10:08 AM TURKISH RUBBER [facility]ication [facility] for pediatric and adult patients. ISH RUBBER documented in this encounter Plan of Treatment Upcoming Encounters Date Type Department Care Team (Latest Contact Info) Description 12/30/2024 8:00 AM CDT [facility] 1 [place] [address] Kwadwo Montalvo MD 2 [facility] [address] [place] [address] 12/30/2024 8:00 AM CDT - 12/30/2024 8:30 AM CDT [facility] 1 [place] [address] Kwadwo Montalvo MD 2 [facility] [place] [address] [place] [address] EGD 01/03/2025 11:30 AM CDT [facility] 1 [place] [address] Robert Mae MD #2 [place] [address] Discharge Disposition: Discharged to home or Selfcare 01/28/2025 10:45 AM CDT Office Visit [facility] - Pulmonology & Sleep Medicine - [place] #2 [place] [address] Robert Mae MD #2 [place] [address] 03/11/2025 10:30 AM CDT Office Visit [facility] - Neurology - [place] #2 [place] [address] Maryann El APRN, WHISKEY PROOF READER #2 [place] [address] Scheduled Procedures Name Priority Associated Diagnoses Date/Ti me EGD ULCER OF THE ESOPHAGUS 12/30/2024 8:00 AM CDT documented as of this encounter Visit Diagnoses Not on filedocumented in this encounter Additional Health Concerns Infection Onset Date Last Indicated Resolved Time COVID - 19 09/03/2024 09/03/2024 09/03/2024 9:25 PM TURKISH RUBBER documented as of this encounter Care Teams Mattress Packer Relationship Specialty Start Date End Date Micky Dickson MD [address] [facility] [address] [place] [address] PCP - General Family Medicine 09/25/23 07/04/24 Silva Vicente MD [address] [facility] [address] [place] [address] PCP - General Family Medicine 07/05/24 Mac Sher MD #2 [place] [address] Consulting Physician Neurology 09/15/15 Robert Mae MD #2 [place] [address] Consulting Physician Pulmonary Disease 10/27/22 Maryann El APRN, WHISKEY PROOF READER #2 [place] [address] Nurse Practitioner Advanced Practice Nurse 12/21/22 Germania Navarro APRN, EDGER RUNNER #2 [place] [address] Nurse Practitioner Advanced Practice Nurse 10/04/23 Leny Morales MD #2 [place] [address] Consulting Physician Gastroenterology 01/19/23 documented as of this encounter
--- OUTSIDE RECORDS SUMMARY | 2024-12-17 14:02 | XMS_ITS | Encounter Summary ---
Author Organization [facility] Address [address] [place] [address] Phone Care Team Providers Care Leaf Binner Name Role Phone Mac Sher MD Unavailable [phone] Winifred Armstrong RADIOLOGY ASSISTANT, SNIPPER Primary Care Provider Micky Dickson MD Primary Care Provider [phone] Robert Mae MD Unavailable Maryann El APRN, DISTRICT SALES MANAGER Unavailable + [phone] Germania Navarro APRN, SNIPPER Unavailable Leny Morales MD Unavailable [phone] Silva Vicente MD Primary Care Provider [phone] Encounter Details Date Type Department Care Team (Latest Contact Info) Description 08/30/2022 Transcribe Orders [facility] Patient Access Admitting 1 [place] [address] Manuel Ventura MD [address] [place] [address] Pseudoclaudication syndrome (Primary Dx) Social History Tobacco Use Types [...] Coronavirus/COVID-19? No / Unsure 09/02/2022 9:40 AM SUBWAY CAR REPAIRER documented as of this encounter Plan of Treatment Upcoming Encounters Date Type Department Care Team (Latest Contact Info) Description 12/30/2024 8:00 AM CDT [facility] 1 [place] [address] Kwadwo Montalvo MD [address] [address] 12/30/2024 8:00 AM CDT - 12/30/2024 8:30 AM CDT [facility] 1 [place] [address] Kwadwo Montalvo MD [address] [address] EGD 01/03/2025 11:30 AM CDT [facility] 1 [place] [address] Robert Mae MD #2 [place] [address] Discharge Disposition: Discharged to home or Selfcare 01/28/2025 10:45 AM CDT Office Visit [facility] - Pulmonology & Sleep Medicine - [place] #2 [place] [address] Robert Mae MD #2 [place] [address] 03/11/2025 10:30 AM CDT Office [facility] - Neurology - [place] #2 [place] [address] Maryann El APRN, DISTRICT SALES MANAGER #2 [place] [address] Scheduled Procedures Name Priority Associated Diagnoses Date/Ti me EGD ULCER OF THE ESOPHAGUS 12/30/2024 8:00 AM CDT documented as of this encounter Results * ERYTHROCYTE SEDIMENTATION RATE (ESR) (08/30/2022 10:10 AM SUBWAY CAR REPAIRER) ESR (SED RATE, ERYTHROCYTE SEDIMENTATION RATE) <1 <30 mm/h 08/30/2022 10:20 AM SUBWAY CAR REPAIRER [facility] Comment: Patients presenting with increased level of fibrinogen, gamma globulins, or abnormally shaped RBCs could affect the results for the erythrocyte sedimentation rate (ESR). Results should be clinically correlated. Blood Venipuncture / Unknown 08/30/2022 10:10 AM SUBWAY CAR REPAIRER 08/30/2022 10:14 AM SUBWAY CAR REPAIRER us Manuel Ventura MD HEMATOLOGY ORDERABLES Final Resu lt [facility] #1 [place] [address] * C-REACTIVE PROTEIN (CRP) QUANT (08/30/2022 10:10 AM SUBWAY CAR REPAIRER) C-REACTIVE PROTEIN <=0.30 <0.50 mg/dL 08/30/2022 11:58 AM [facility] Blood Venipuncture / Unknown 08/30/2022 10:10 AM SUBWAY CAR REPAIRER 08/30/2022 10:14 AM SUBWAY CAR REPAIRER us Manuel Ventura MD CHEMISTRY ORDERABLES Final Resul t [facility] #1 [place] [address] * (ABNORMAL) CMP (COMPREHENSIVE METABOLIC PANEL) (08/30/2022 10:10 AM SUBWAY CAR REPAIRER) SODIUM 134(L) 136 - 144 mmol/L 08/30/2022 10:44 AM [facility] POTASSIUM 4.2 3.5 - 5.1 mmol/L 08/30/2022 10:44 AM [facility] CHLORIDE 101 100 - 110 mmol/L 08/30/2022 10:44 AM [facility] CO2, VENOUS 25 22 - 32 mmol/L 08/30/2022 10:44 AM [facility] ANION GAP 12.2 8.0 - 20.0 mmol/L 08/30/2022 10:44 AM [facility] GLUCOSE 98 70 - 99 mg/dL 08/30/2022 10:44 AM [facility] BUN 17 8 - 23 mg/dL 08/30/2022 10:44 AM [facility] CREATININE, BLOOD 0.80 0.60 - 1.10 mg/dL 08/30/2022 10:44 AM [facility] BUN/CREATININE RATIO 21(H) 12 - 20 ratio 08/30/2022 10:44 AM [facility] TOTAL PROTEIN 6.5 6.0 - 8.3 g/dL 08/30/2022 10:44 AM [facility] ALBUMIN 4.3 3.5 - 5.2 g/dL 08/30/2022 10:44 AM [facility] Comment: The colormetric methods used for the determination of Albumin may lead to falsely elevated test results in patients suffering from renal failure or insufficiency due to interference with other proteins. A/G RATIO 2.0 1.0 - 2.0 08/30/2022 10:44 AM [facility] CALCIUM 9.8 8.9 - 10.3 mg/dL 08/30/2022 10:44 AM [facility] T BILI <0.3 <=1.2 mg/dL 08/30/2022 10:44 AM SUBWAY CAR REPAIRER [facility] SGOT (AST) 14 <=32 U/L 08/30/2022 10:44 AM [facility] SGPT (ALT) 15 <=41 U/L 08/30/2022 10:44 AM [facility] ALKALINE PHOSPHATASE 69 35 - 105 U/L 08/30/2022 10:44 AM [facility] IS THE PATIENT REQUIRED TO BE FASTING? No 08/30/2022 10:44 AM [facility] GFR, ESTIMATED >60 >=60 08/30/2022 10:44 AM [facility] Comment: Creatinine Clearance is the preferred criteria for selecting drug dose adjustments in renally impaired patients. The GFR is provided as additional pertinent clinical information. GFR is reported in mL/min/1.73 sq m. Calculation based on the Chronic Kidney Disease Epidemiology Collaboration (CKD- EPI) equation refit without adjustment for race. GFR, EST. >60 >=60 022 10:44 AM SUBWAY CAR REPAIRER [facility] GFR, EST. NONAFRICAN >60 >=60 08/30/2022 10:44 AM [facility] Blood Venipuncture / Unknown 08/30/2022 10:10 AM SUBWAY CAR REPAIRER 08/30/2022 10:14 AM SUBWAY CAR REPAIRER us Manuel Ventura MD CHEMISTRY ORDERABLES Final Resul t [facility] #1 [place] [address] documented in this encounter Visit Diagnoses Diagnosis Pseudoclaudication syndrome- Primary Spinal stenosis, lumbar region, with neurogenic claudication documented in this encounter Additional Health Concerns Infection Onset Date Last Indicated Resolved Time COVID - 19 09/03/2024 09/03/2024 09/03/2024 9:25 PM SUBWAY CAR REPAIRER documented as of this encounter Care Teams Leaf Binner Relationship Specialty Start Date End Date Winifred Armstrong APRN, SNIPPER [address] [place] [address] PCP - General Advanced Practice Nurse 10/17/19 Micky Dickson MD [address] [place] [address] [address] [place] [address] PCP - General Family Medicine 09/25/23 07/04/24 Silva Vicente MD [address] [place] [address] DR [address] [place] [address] PCP - General Family Medicine 07/05/24 Mac Sher MD #2 [place] [address] Consulting Physician Neurology 09/15/15 Robert Mae MD #2 [place] [address] Consulting Physician Pulmonary Disease 10/27/22 Maryann El APRN, DISTRICT SALES MANAGER #[address] [place] [address] Nurse Practitioner Advanced Practice Nurse 12/21/22 Germania Navarro APRN, SNIPPER #[address] [place] [address] Nurse Practitioner Advanced Practice Nurse 10/04/23 Leny Morales MD #[address] [place] [address] Consulting Physician Gastroenterology 01/19/23 documented as of this encounter
--- OUTSIDE RECORDS SUMMARY | 2024-12-17 14:02 | XMS_ITS | Encounter Summary ---
Author Organization [facility] Address [address] [place] [address] Phone Care Team Providers Care Straight Truck Driver Name Role Phone Mac Sher MD Unavailable [phone] Winifred Armstrong ELECTRICAL POWER STATION TECHNICIAN, HEAD AUTOMATIC SAWYER Primary Care Provider Micky Dickson MD Primary Care Provider Robert Mae MD Unavailable Maryann El APRN, PIGMENT PRESSER Unavailable + [phone] Germania Navarro APRN, HEAD AUTOMATIC SAWYER Unavailable Leny Morales MD Unavailable [phone] Silva Vicente MD Primary Care Provider [phone] Reason for Visit * Reason Comments Medication Refill Encounter Details Date Type Department Care Team (Late st Contact Info) Description 11/06/2020 [facility]ill [facility] - Neurology - [place] #1 [place] [address] Mac Sher MD #2 [place] [address] Medication Refill Social History Tobacco Use Types Packs/Day Years Used Date Smoking Tobacco: Heavy Smoker Cigarettes 0.5 25 Smokeless Tobacco: Never Comments:occassional [...] [facility] 1 [place] [address] Kwadwo Montalvo MD [address] [address] 12/30/2024 8:00 AM CDT - 12/30/2024 8:30 AM CDT [facility] 1 [place] [address] Kwadwo Montalvo MD [address] [address] EGD 01/03/2025 11:30 AM CDT [facility]ointment [facility] Res[facility] 1 [place] [address] Robert Mae MD #2 [place] [address] Discharge Disposition: Discharged to home or Selfcare 01/28/2025 10:45 AM CDT Office Visit [facility] - Pulmonology & Sleep Medicine - [place] #2 [place] [address] Robert Mae MD #2 [place] [address] 03/11/2025 10:30 AM CDT Office Visit [facility] - Neurology [facility] #2 [place] [address] Maryann El, ELECTRICAL POWER STATION TECHNICIAN, PIGMENT PRESSER #2 [place] [address] Scheduled Procedures Name Priority Associated Diagnoses Date/Ti me EGD ULCER OF THE ESOPHAGUS 12/30/2024 8:00 AM CDT documented as of this encounter Visit Diagnoses Not on filedocumented in this encounter Additional Health Concerns Infection Onset Date Last Indicated Resolved Time COVID - 19 06/23/2021 06/23/2021 06/29/2021 9:24 PM CDT COVID - 19 09/03/2024 09/03/2024 09/03/2024 9:25 PM MANAGER PERFORMANCE IMPROVEMENT documented as of this encounter Care Teams Straight Truck Driver Relationship Specialty Start Date End Date Winifred Armstrong, ELECTRICAL POWER STATION TECHNICIAN, HEAD AUTOMATIC SAWYER [address] [place] [address] PCP - General Advanced Practice Nurse 10/17/19 Micky Dickson MD [address] [place] [address] [address] CASTRO [address] [place] [address] PCP - General Family Medicine 09/25/23 07/04/24 Silva Vicente MD [address] [place] [address] [address] CASTRO [address] [place] [address] PCP - General Family Medicine 07/05/24 Mac Sher MD #2 [place] [address] Consulting Physician Neurology 09/15/15 Robert Mae MD #2 [place] [address] Consulting Physician Pulmonary Disease 10/27/22 Maryann El APRN, PIGMENT PRESSER #2 [place] [address] Nurse Practitioner Advanced Practice Nurse 12/21/22 Germania Navarro APRN, HEAD AUTOMATIC SAWYER #2 [place] [address] Nurse Practitioner Advanced Practice Nurse 10/04/23 Leny Morales MD #2 [place] [address] Consulting Physician Gastroenterology 01/19/23 documented as of this encounter
--- OUTSIDE RECORDS SUMMARY | 2024-12-17 14:02 | XMS_ITS | Encounter Summary ---
Author Organization [facility] Address [address] [place] [address] Phone Care Team Providers Care President And Chief Operating Officer Name Role Phone Mac Sher MD Unavailable [phone] Winifred Armstrong ESL PROFESSOR, AUTOMATIC PAD MAKING MACHINE OPERATOR Primary Care Provider Micky Dickson MD Primary Care Provider [phone] Robert Mae MD Unavailable Maryann El APRN, PET HOUSE SITTER Unavailable + [phone] Germania Navarro APRN, AUTOMATIC PAD MAKING MACHINE OPERATOR Unavailable Leny Morales MD Unavailable [phone] Silva Vicente MD Primary Care Provider [phone] Reason for Visit * Reason Comments Medication Refill Encounter Details Date Type Department Care Team (Late st Contact Info) Description 12/27/2021 Refill [facility] - Neurology - [place] #2 [place] [address] Mac Sher MD #2 [place] [address] Medication Refill Social History Tobacco [...] have Coronavirus / COVID-19? No / Unsure 12/03/2021 10:46 AM NURSE EXAMINER documented as of this encounter Plan of Treatment Upcoming Encounters Date Type Department Care Team (Latest Contact Info) Description 12/30/2024 8:00 AM CDT [facility] 1 [place] [address] Kwadwo Montalvo MD [address] [address] 12/30/2024 8:00 AM CDT - 12/30/2024 8:30 AM CDT [facility] 1 [place] [address] Kwadwo Montalvo MD [address] [address] EGD 01/03/2025 11:30 AM CDT [facility] Res[facility] 1 [place] [address] Robert Mae MD #2 [place] [address] Discharge Disposition: Discharged to home or Selfcare 01/28/2025 10:45 AM CDT Office Visit [facility] - Pulmonology & Sleep Medicine - [place] #2 [place] [address] Robert Mae MD #2 [place] [address] 03/11/2025 10:30 AM CDT [facility] - [place] #2 [place] [address] Maryann El, ESL PROFESSOR, PET HOUSE SITTER #2 [place] [address] Scheduled Procedures Name Priority Associated Diagnoses Date/Ti me EGD ULCER OF THE ESOPHAGUS 12/30/2024 8:00 AM CDT documented as of this encounter Visit Diagnoses Not on filedocumented in this encounter Additional Health Concerns Infection Onset Date Last Indicated Resolved Time COVID - 19 09/03/2024 09/03/2024 09/03/2024 9:25 PM NURSE EXAMINER documented as of this encounter Care Teams President And Chief Operating Officer Relationship Specialty Start Date End Date Winifred Armstrong, ESL PROFESSOR, AUTOMATIC PAD MAKING MACHINE OPERATOR [address] [place] [address] PCP - General Advanced Practice Nurse 10/17/19 Micky Dickson MD [address] [place] [address] [place] [address] PCP - General Family Medicine 09/25/23 07/04/24 Silva Vicente MD [address] [place] [address] [place] [address] PCP - General Family Medicine 07/05/24 Mac Sher MD #2 [place] [address] Consulting Physician Neurology 09/15/15 Robert Mae MD #2 [place] [address] Consulting Physician Pulmonary Disease 10/27/22 Maryann El APRN, PET HOUSE SITTER #2 [place] [address] Nurse Practitioner Advanced Practice Nurse 12/21/22 Germania Navarro APRN, AUTOMATIC PAD MAKING MACHINE OPERATOR #2 [place] [address] Nurse Practitioner Advanced Practice Nurse 10/04/23 Leny Morales MD #2 [place] [address] Consulting Physician Gastroenterology 01/19/23 documented as of this encounter
--- OUTSIDE RECORDS SUMMARY | 2024-12-17 14:02 | XMS_ITS | Encounter Summary ---
Author Organization [facility] Address [address] [place] [address] Phone Care Team Providers Care Skiver Box Toe Name Role Phone Mac Sher MD Unavailable [phone] Winifred Armstrong DRYER FEEDER, RESOURCE DEVELOPMENT MANAGER Primary Care Provider Micky Dickson MD Primary Care Provider Robert Mae MD Unavailable Maryann El APRN, LOAN PROCESSING SUPERVISOR Unavailable + [phone] Germania Navarro APRN, RESOURCE DEVELOPMENT MANAGER Unavailable Leny Morales MD Unavailable [phone] Silva Vicente MD Primary Care Provider [phone] Reason for Visit * Reason Comments Medication Refill Encounter Details Date Type Department Care Team (Late st Contact Info) Description 04/21/2022 Refill [facility] - Neurology - [place] #[address] [place] [address] Mac Sher MD #2 [place] [address] Medication Refill Social History Tobacco [...] suspected to have Coronavirus/COVID-19? No / Unsure 04/20/2022 9:45 AM CDT documented as of this encounter Miscellaneous Notes * Telephone Encounter - Yojana Walter RN - 04/21/2022 2:44 PM CDT Medication failed the protocol, provider to review and approve the medication order if appropriate. Requested Prescriptions Pending Prescriptions Disp Refills donepezil (ARICEPT) 10 MG Tablet [Pharmacy Med Name: Donepezil HCl 10 MG Oral Tablet] 75 Tablet 0 Sig: TAKE 1/2 (ONE-HALF) TABLET BY MOUTH NIGHTLY FOR 30 DAYS THEN TAKE 1 TABLET BY MOUTH NIGHTLY THEREAFTER Antidementia Agents Protocol Failed - 04/21/2022 9:07 AM Failed - Patient has established therapy with Antidementia Agents for at least 6 months Passed - Visit with relevant provider in past 12 months or upcoming 90 days Recent Visits Date Type Provider Dept 03/18/22 Procedure Visit Mac Sher MD [facility] Neurology [facility] [address] 12/03/21 Procedure [facility] [address] 11/30/21 Office Visit Mac [facility] 09/27/21 Office Visit Maryann El APRN, LOAN PROCESSING SUPERVISOR [facility] 09/10/21 Procedure Visit Mac Sher MD [facility] Neurology [facility] 07/09/21 Office Visit Maryann El APRN, LOAN PROCESSING SUPERVISOR [facility] 06/18/21 Procedure Visit Mac Sher MD [facility] Neurology [facility] Showing recent visits within past 365 days and meeting all other requirements Future Appointments Date Type Provider Dept 06/10/22 Appointment Mac Sher MD [facility] Neurology [facility] Showing future appointments within next 90 days and meeting all other requirements documented in this encounter Plan of Treatment Upcoming Encounters Date Type Department Care Team (Latest Contact Info) Description 12/30/2024 8:00 AM CDT Hospital Encounter [facility] Gi Lab Periop 1 [place] [address] Kwadwo Montalvo MD [address] [address] 12/30/2024 8:00 AM CDT - 12/30/2024 8:30 AM CDT Surgery [facility] Lab Periop 1 [place] [address] Kwadwo Montalvo MD 2 [facility] [address] [place] [address] EGD 01/03/2025 11:30 AM CDT Appointment [facility] Respiratory Therapy 1 [place] [address] Robert Mae MD #2 [place] [address] Discharge Disposition: Discharged to home or Selfcare 01/28/2025 10:45 AM CDT Office Visit [facility] - Pulmonology & Sleep Medicine - [place] #[address] [place] [address] Robert Mae MD #2 [place] [address] 03/11/2025 10:30 AM CDT Office Visit [facility] - Neurology - [place] #2 [facility] [place] [address] Maryann El, DRYER FEEDER, LOAN PROCESSING SUPERVISOR #2 [place] [address] Scheduled Procedures Name Priority Associated Diagnoses Date/Ti me EGD ULCER OF THE ESOPHAGUS 12/30/2024 8:00 AM CDT documented as of this encounter Visit Diagnoses Not on filedocumented in this encounter Additional Health Concerns Infection Onset Date Last Indicated Resolved Time COVID - 19 09/03/2024 09/03/2024 09/03/2024 9:25 PM CONCERT PIANIST documented as of this encounter Care Teams Skiver Box Toe Relationship Specialty Start Date End Date Winifred Armstrong, DRYER FEEDER, RESOURCE DEVELOPMENT MANAGER [address] [place] [address] PCP - General Advanced Practice Nurse 10/17/19 Micky Dickson MD [address] [facility] [address] [place] [address] PCP - General Family Medicine 09/25/23 07/04/24 Silva Vicente MD [address] [facility] [address] [place] [address] PCP - General Family Medicine 07/05/24 Mac Sher MD #2 [place] [address] Consulting Physician Neurology 09/15/15 Robert Mae MD #2 [place] [address] Consulting Physician Pulmonary Disease 10/27/22 Maryann El APRN, LOAN PROCESSING SUPERVISOR #2 [place] [address] Nurse Practitioner Advanced Practice Nurse 12/21/22 Germania Navarro APRN, RESOURCE DEVELOPMENT MANAGER #2 [place] [address] Nurse Practitioner Advanced Practice Nurse 10/04/23 Leny Morales MD #2 [place] [address] Consulting Physician Gastroenterology 01/19/23 documented as of this encounter
--- OUTSIDE RECORDS SUMMARY | 2024-12-17 14:02 | XMS_ITS | Encounter Summary ---
Author Organization [facility] Address [address] [place] [address] Phone Care Team Providers Care Ride Assembly Supervisor Name Role Phone Mac Sher MD Unavailable [phone] Winifred Armstrong NURSE HEALTHCARE MANAGER, PRIMER PRESS OPERATOR Primary Care Provider Micky Dickson MD Primary Care Provider Robert Mae MD Unavailable Maryann El APRN, SEISMIC PROSPECTING OBSERVER Unavailable + [phone] Germania Navarro APRN, PRIMER PRESS OPERATOR Unavailable Leny Morales MD Unavailable [phone] Silva Vicente MD Primary Care Provider [phone] Reason for Visit * Reason Comments Medication Refill Encounter Details Date Type Department Care Team (Late st Contact Info) Description 02/14/2022 Refill [facility] - Neurology - [place] #2 [place] [address] Maryann El, CESAR, SEISMIC PROSPECTING OBSERVER #2 [place] [address] Medication Refill Social History Tobacco Use Types [...] Telephone Encounter - Manisha Chavez RN - 02/14/2022 10:39 AM CDT . documented in this encounter Plan of Treatment Upcoming Encounters Date Type Department Care Team (Latest Contact Info) Description 12/30/2024 8:00 AM CDT [facility] 1 [place] [address] Kwadwo Montalvo MD [address] [address] 12/30/2024 8:00 AM CDT - 12/30/2024 8:30 AM CDT [facility] Per[facility] 1 [place] [address] Kwadwo Montalvo MD 2 [facility] [address] [address] EGD 01/03/2025 11:30 AM CDT [facility] Res[facility] 1 [place] [address] Robert Mae MD #2 [place] [address] Discharge Disposition: Discharged to home or Selfcare 01/28/2025 10:45 AM CDT Office Visit [facility] - Pulmonology & Sleep Medicine - [place] #2 [place] [address] Robert Mae MD #2 [place] [address] 03/11/2025 10:30 AM CDT Office Visit [facility] - Neurology - [place] #2 [place] [address] Maryann El, NURSE HEALTHCARE MANAGER, SEISMIC PROSPECTING OBSERVER #2 [place] [address] Scheduled Procedures Name Priority Associated Diagnoses Date/Ti [...] - 19 09/03/2024 09/03/2024 09/03/2024 9:25 PM TUBE BENDING MACHINE OPERATOR documented as of this encounter Care Teams Ride Assembly Supervisor Relationship Specialty Start Date End Date Winifred Armstrong, NURSE HEALTHCARE MANAGER, PRIMER PRESS OPERATOR [address] [place] [address] PCP - General Advanced Practice Nurse 10/17/19 Micky Dickson MD [address] [facility] [address] [place] [address] PCP - General Family Medicine 09/25/23 07/04/24 Silva Vicente MD [address] [facility] [place] [address] PCP - General Family Medicine 07/05/24 Mac Sher MD #2 [place] [address] Consulting Physician Neurology 09/15/15 Robert Mae MD #2 [place] [address] Consulting Physician Pulmonary Disease 10/27/22 Maryann El APRN, SEISMIC PROSPECTING OBSERVER #2 [place] [address] Nurse Practitioner Advanced Practice Nurse 12/21/22 Germania Navarro APRN, PRIMER PRESS OPERATOR #2 [place] [address] Nurse Practitioner Advanced Practice Nurse 10/04/23 Leny Morales MD #2 [place] [address] Consulting Physician Gastroenterology 01/19/23 documented as of this encounter
--- OUTSIDE RECORDS SUMMARY | 2024-12-17 14:02 | XMS_ITS | Encounter Summary ---
Author Organization [facility] Address [address] [place] [address] Phone Care Team Providers Care Prefitter Name Role Phone Mac Sher MD Unavailable [phone] Winifred Armstrong TAIL DOGGER, PRODUCT COMMUNICATIONS MANAGER Primary Care Provider Micky Dickson MD Primary Care Provider [phone] Robert Mae MD Unavailable Maryann El APRN, COUNTY ADVISER Unavailable + [phone] Germania Navarro APRN, PRODUCT COMMUNICATIONS MANAGER Unavailable Leny Morales MD Unavailable [phone] Silva Vicente MD Primary Care Provider [phone] Reason for Visit * Reason Comments Medication Refill Encounter Details Date Type Department Care Team (Late st Contact Info) Description 04/26/2023 Refill [facility] - [facility]ology - [place] #2 [place] [address] Germania Navarro APRN, PRODUCT COMMUNICATIONS MANAGER #2 [place] [address] Medication Refill Social History Tobacco Use Types [...] Telephone Encounter - Monica Marcelo RN - 04/27/2023 2:55 PM CDT Medication [facility] and signed [facility] medication standing order for pediatric and adult patients. documented in this encounter Plan of Treatment Upcoming Encounters Date Type Department Care Team (Latest Contact Info) Description 12/30/2024 8:00 AM CDT [facility] Per[facility] 1 [place] [address] Kwadwo Montalvo MD 2 [facility] [address] [address] 12/30/2024 8:00 AM CDT - 12/30/2024 8:30 AM CDT Surgery [facility] 1 [facility] [place] [address] Kwadwo Montalvo MD 2 [place] [facility] [address] [address] EGD 01/03/2025 11:30 AM CDT [facility] [place] [address] Robert Mae MD #2 [place] [address] Discharge Disposition: Discharged to home or Selfcare 01/28/2025 10:45 AM CDT Office Visit [facility] - Pulmonology & Sleep Medicine - [place] #2 [place] [address] Robert Mae MD #2 [place] [address] 03/11/2025 10:30 AM CDT [facility] [place] #2 [place] [address] Maryann El TAIL DOGGER, COUNTY ADVISER #2 [place] [address] Scheduled Procedures Name Priority Associated Diagnoses Date/Ti me EGD ULCER OF THE ESOPHAGUS 12/30/2024 8:00 AM CDT documented as of this encounter Visit Diagnoses Not on filedocumented in this encounter Additional Health Concerns Infection Onset Date Last Indicated Resolved Time COVID - 19 09/03/2024 09/03/2024 09/03/2024 9:25 PM DRUG ROOM OPERATOR documented as of this encounter Care Teams Prefitter Relationship Specialty Start Date End Date Winifred Armstrong APRN, PRODUCT COMMUNICATIONS MANAGER [address] [place] [address] PCP - General Advanced Practice Nurse 10/17/19 Micky Dickson MD [address] [place] [address] [address] [place] [address] PCP - General Family Medicine 09/25/23 07/04/24 Silva Vicente MD [address] [place] [address] [address] PCP - General Family Medicine 07/05/24 Mac Sher MD #2 [place] [address] Consulting Physician Neurology 09/15/15 Robert Mae MD #2 [place] [address] Consulting Physician Pulmonary Disease 10/27/22 Maryann El APRN, COUNTY ADVISER #2 [place] [address] Nurse Practitioner Advanced Practice Nurse 12/21/22 Germania Navarro APRN, PRODUCT COMMUNICATIONS MANAGER #2 [place] [address] Nurse Practitioner Advanced Practice Nurse 10/04/23 Leny Morales MD #2 [place] [address] Consulting Physician Gastroenterology 01/19/23 documented as of this encounter
--- OUTSIDE RECORDS SUMMARY | 2024-12-17 14:02 | XMS_ITS | Encounter Summary ---
Author Organization [facility] Address [address] [place] [address] Phone Care Team Providers Care Van Loader Name Role Phone Mac Sher MD Unavailable [phone] Winifred Armstrong PROJECT ENG, APPLICATION DEFENSE MANAGER Primary Care Provider Micyk Dickson MD Primary Care Provider Robert Mae MD Unavailable Maryann El APRN, FITTING SUPERVISOR Unavailable + [phone] Germania Navarro APRN, APPLICATION DEFENSE MANAGER Unavailable Leny Morales MD Unavailable [phone] Silva Vicente MD Primary Care Provider [phone] Reason for Visit * Reason Comments Medication Refill Encounter Details Date Type Department Care Team (Late st Contact Info) Description 11/16/2020 Refill [facility]rology - [place] #1 [place] [address] Mac Sher MD #2 [place] [address] Medication Refill Social History Tobacco [...] Description 12/30/2024 8:00 AM CDT [facility] 1 [place] [address] Kwadwo Montalvo MD [address] [address] 12/30/2024 8:00 AM CDT - 12/30/2024 8:30 AM CDT [facility] Per[facility] 1 [place] [address] Kwadwo Montalvo MD [address] [address] EGD 01/03/2025 11:30 AM CDT [facility]ment [facility] Res[facility] 1 [place] [address] Robert Mae MD #2 [place] [address] Discharge Disposition: Discharged to home or Selfcare 01/28/2025 10:45 AM CDT Office Visit [facility] - Pulmonology & Sleep Medicine - [place] #2 [place] [address] Robert Mae MD #2 [place] [address] 03/11/2025 10:30 AM CDT Office Visit [facility] - Neurology [facility] #2 [place] [address] Maryann El, PROJECT ENG, FITTING SUPERVISOR #2 [place] [address] Scheduled Procedures Name Priority Associated Diagnoses Date/Ti me EGD ULCER OF THE ESOPHAGUS 12/30/2024 8:00 AM CDT documented as of this encounter Visit Diagnoses Not on filedocumented in this encounter Additional Health Concerns Infection Onset Date Last Indicated Resolved Time COVID - 19 06/23/2021 06/23/2021 06/29/2021 9:24 PM CDT COVID - 19 09/03/2024 09/03/2024 09/03/2024 9:25 PM RHEUMATOLOGIST documented as of this encounter Care Teams Van Loader Relationship Specialty Start Date End Date Winifred Armstrong, PROJECT ENG, APPLICATION DEFENSE MANAGER [address] [place] [address] PCP - General Advanced Practice Nurse 10/17/19 Micky Dickson MD [address] [place] [address] [address] CASTRO [address] [place] [address] PCP - General Family Medicine 09/25/23 07/04/24 Silva Vicente MD [address] [place] [address] [address] CASTRO [address] [place] [address] PCP - General Family Medicine 07/05/24 Mac Sher MD #2 [place] [address] Consulting Physician Neurology 09/15/15 Robert Mae MD #2 [place] [address] Consulting Physician Pulmonary Disease 10/27/22 Maryann El APRN, FITTING SUPERVISOR #[address] [place] [address] Nurse Practitioner Advanced Practice Nurse 12/21/22 Germania Navarro APRN, APPLICATION DEFENSE MANAGER #2 [place] [address] Nurse Practitioner Advanced Practice Nurse 10/04/23 Leny Morales MD #2 [place] [address] Consulting Physician Gastroenterology 01/19/23 documented as of this encounter
--- OUTSIDE RECORDS SUMMARY | 2024-12-17 14:02 | XMS_ITS | Encounter Summary ---
Author Organization [facility] Address [address] [place] [address] Phone Care Team Providers Care Senior Compensation Consultant Name Role Phone Mac Sher MD Unavailable [phone] Winifred Armstrong COPY ROOM TECHNICIAN, DRIVE MAN Primary Care Provider Micky Dickson MD Primary Care Provider [phone] Robert Mae MD Unavailable Maryann El COPY ROOM TECHNICIAN, MEDICAL ILLUSTRATOR Unavailable + [phone] Germania Navarro APRN, DRIVE MAN Unavailable Leny Morales MD Unavailable [phone] Silva Vicente MD Primary Care Provider [phone] Reason for Referral * Radiology Services (Routine) - Closed Specialty Diagnoses / Procedures Referred By Jo Ann sandoval Referred To Contact Radiology Diagnoses Pre-op testing Procedures EKG 12 LEAD Manuel Ventura MD Phone: tel: fax: Referral ID Status Reason Start Date Expiration Date Visits Re quested Visits Authorized [id number] Closed 09/14/2020 1 1 UTER ENGINEERING TECHNOLOGIST * Radiology Services (Routine) - Closed Specialty Diagnoses / Procedures Referred By Jo Ann sandoval Referred To Contact Radiology Diagnoses Pre-op testing Procedures XR CHEST 2 VIEWS Manuel Ventura MD Phone: tel: fax: Referral ID Status Reason Start Date Expiration Date Visits Re quested Visits Authorized [id number] Closed 09/14/2020 1 1 UTER ENGINEERING TECHNOLOGIST Encounter Details Date Type Department Care Team (Latest Contact Info) Description 09/14/2020 Transcribe Orders [facility] Preop/Pacu II 1 [place] [address] Manuel Ventura MD [facility] [place] [address] Pre-op testing (Primary Dx) Social History Tobacco Use Types [...] have Coronavirus / COVID-19? No / Unsure 09/14/2020 2:24 PM COMPUTER ENGINEERING TECHNOLOGIST documented as of this encounter Plan of Treatment Upcoming Encounters Date Type Department Care Team (Latest Contact Info) Description 12/30/2024 8:00 AM CDT Hospital Encounter [facility] Gi Lab Periop 1 [place] [address] Kwadwo Montalvo MD [address] [address] 12/30/2024 8:00 AM CDT - 12/30/2024 8:30 AM CDT Surgery [facility] Gi Lab Periop 1 [place] [address] Kwadwo Montalvo MD [address] [address] EGD 01/03/2025 11:30 AM CDT Appointment [facility] Respiratory Therapy 1 [place] [address] Robert Mae MD #2 [place] [address] Discharge Disposition: Discharged to home or Selfcare 01/28/2025 10:45 AM CDT Office Visit [facility] - Pulmonology & Sleep Medicine [facility] #2 [place] [address] Robert Mae MD #2 [place] [address] 03/11/2025 10:30 AM CDT Office Visit [facility] - Neurology - [place] [address]2 [place] [address] Maryann El, COPY ROOM TECHNICIAN, MEDICAL ILLUSTRATOR [address]2 [place] [address] Scheduled Procedures Name Priority Associated Diagnoses Date/Ti me EGD ULCER OF THE ESOPHAGUS 12/30/2024 8:00 AM CDT documented as of this encounter Results * SARS-COV-2 BY MOLECULAR (09/27/2020 10:31 AM COMPUTER ENGINEERING TECHNOLOGIST) SARSCOV2 NOT DETECTED (Referenc e Range for this test is Not Detected) [facility] THERMOFISHER FAST DX 09/28/2020 8:48 AM COMPUTER ENGINEERING TECHNOLOGIST [facility] Swab NASOPHARYNGEAL STRUCTURE / Unknown Non-Phlebotomy Collection / Unknown 09/27/2020 10:31 AM COMPUTER ENGINEERING TECHNOLOGIST 09/27/2020 11:53 AM COMPUTER ENGINEERING TECHNOLOGIST Narrative [facility] - 09/28/2020 8:48 AM COMPUTER ENGINEERING TECHNOLOGIST Authorized Fact Sheets about this test for providers and patients are available at: https://www.fda.gov/medical-devices/zismqxony-saumoveocw-kcvuepa-devices/emergen -us e-authorizations us Manuel Ventura MD MICROBIOLOGY - GENERAL ORDERABLE S Final Result [facility] [address] [place] [address], * EKG 12 LEAD (09/15/2020 9:38 AM COMPUTER ENGINEERING TECHNOLOGIST) Ventricular Rate BPM EXTERNAL EKG Atrial Rate BPM EXTERNAL EKG P-R Interval 158 ms EXTERNAL EKG QRS Duration 80 ms EXTERNAL EKG Q-T Duration 418 ms EXTERNAL EKG QTC CALCULATION 418 ms EXTERNAL EKG P Fosters 61 degrees EXTERNAL EKG R Fosters 63 degrees EXTERNAL EKG T Fosters 56 degrees EXTERNAL EKG 09/15/2020 9:38 AM COMPUTER ENGINEERING TECHNOLOGIST Impressions EXTERNAL EKG - 09/15/2020 3:36 PM COMPUTER ENGINEERING TECHNOLOGIST Sinus rhythm Within normal limits as previously Comparison Summary: No significant change Summary: Normal ECG Compared with:10/17/2019 2:16 PM; 09/19/2018 12:01 PM; 02/16/2016 10:31 AM Confirmed by Zena Murry [id number] on 09/15/2020 3:36:41 PM Narrative Procedure Note Roselia Freitas MD - 09/15/2020 IMPRESSION: Sinus rhythm Within normal limits as previously Comparison Summary: No significant change Summary: Normal ECG Compared with:10/17/2019 2:16 PM; 09/19/2018 12:01 PM; 02/16/2016 10:31AM Confirmed by Zena Murry [id number] on 09/15/2020 3:36:41 PM us Manuel Ventura MD IMG ECG ORDERABLES Final Result EXTERNAL EKG * XR CHEST 2 VIEWS (09/15/2020 9:25 AM COMPUTER ENGINEERING TECHNOLOGIST) Anatomical Region Laterality Modality Chest N/A Digital Radiogra phy 09/15/2020 7:58 PM COMPUTER ENGINEERING TECHNOLOGIST Impressions 09/15/2020 8:01 PM COMPUTER ENGINEERING TECHNOLOGIST IMPRESSION: 1. Hyperinflated lungs with flattening of the hemidiaphragms and upper lobe predominant pulmonary emphysema with moderate biapical pleuroparenchymal scarring. No focal consolidation. Normal heart size. Narrative 09/15/2020 8:01 PM COMPUTER ENGINEERING TECHNOLOGIST EXAM DESCRIPTION: XR CHEST 2 VIEWS REASON FOR STUDY: Preop radiograph prior to shoulder surgery September 2020. COPD. Shortness of breath. Smoking history. TECHNIQUE: Frontal and lateral radiographic views of the chest acquired. COMPARISON: 06/09/2020 FINDINGS: LUNGS/PLEURA: There is moderate biapical pleuroparenchymal scarring, not significantly changed from prior. There is upper lobe predominant pulmonary emphysema. No pneumothorax. No pleural effusion. No focal consolidation. Lungs are hyperinflated with flattening of the hemidiaphragms. No pulmonary edema. HEART/MEDIASTINUM: Heart size is normal. Normal mediastinal and hilar contours. HARDWARE/LINES/TUBES: None. BONES: No acute findings. OTHER: No other significant finding. THIS IS AN ELECTRONICALLY VERIFIED FINAL REPORT 09/15/2020 7:58 PM - Electronically signed by Rito Francois : Report ID: [id number] Reading Location: [id number] Procedure Note Rito Francois MD - 09/15/2020 EXAM DESCRIPTION: XR CHEST 2 VIEWS REASON FOR STUDY: Preop radiograph prior to shoulder surgery September 2020. COPD. Shortness of breath. Smoking history. TECHNIQUE: Frontal and lateral radiographic views of the chest acquired. COMPARISON: 06/09/2020 FINDINGS: LUNGS/PLEURA: There is moderate biapical pleuroparenchymal scarring, not significantly changed from prior. There is upper lobe predominant pulmonary emphysema. No pneumothorax. No pleural effusion. No focal consolidation. Lungs are hyperinflated with flattening of the hemidiaphragms. No pulmonary edema. HEART/MEDIASTINUM: Heart size is normal. Normal mediastinal and hilar contours. HARDWARE/LINES/TUBES: None. BONES: No acute findings. OTHER: No other significant finding. THIS IS AN ELECTRONICALLY VERIFIED FINAL REPORT 09/15/2020 7:58 PM - Electronically signed by Rito Francois : Report ID: [id number] Reading Location: [id number] IMPRESSION: 1. Hyperinflated lungs with flattening of the hemidiaphragms and upper lobe predominant pulmonary emphysema with moderate biapical pleuroparenchymal scarring. No focal consolidation. Normal heart size. Manuel Ventura MD IMG DIAGNOSTIC ORDERABLES Final Result * (ABNORMAL) CMP (COMPREHENSIVE METABOLIC PANEL) (09/15/2020 9:03 AM COMPUTER ENGINEERING TECHNOLOGIST) SODIUM 143 136 - 144 mmol/L 09/15/2020 11:37 AM [facility] POTASSIUM 4.4 3.5 - 5.1 mmol/L 09/15/2020 11:37 AM [facility] CHLORIDE 108 100 - 110 mmol/L 09/15/2020 11:37 AM [facility] CO2, VENOUS 24 22 - 32 mmol/L 09/15/2020 11:37 AM [facility] ANION GAP 15.4 8.0 - 20.0 mmol/L 09/15/2020 11:37 AM [facility] GLUCOSE 78 70 - 99 mg/dL 09/15/2020 11:37 AM [facility] BUN 11 8 - 23 mg/dL 09/15/2020 11:37 AM [facility] CREATININE, BLOOD 0.85 0.60 - 1.10 mg/dL 09/15/2020 11:37 AM [facility] BUN/CREATININE RATIO 13 12 - 20 ratio 09/15/2020 11:37 AM [facility] TOTAL PROTEIN 6.6 6.0 - 8.3 g/dL 09/15/2020 11:37 AM [facility] ALBUMIN 4.6 3.5 - 5.2 g/dL 09/15/2020 11:37 AM [facility] Comment: The colormetric methods used for the determination of Albumin may lead to falsely elevated test results in patients suffering from renal failure or insufficiency due to interference with other proteins. A/G RATIO 2.3(H) 1.0 - 2.0 09/15/2020 11:37 AM [facility] CALCIUM 9.6 8.9 - 10.3 mg/dL 09/15/2020 11:37 AM [facility] T BILI 0.3 <=1.2 mg/dL 09/15/2020 11:37 AM [facility] SGOT (AST) 15 <=32 U/L 09/15/2020 11:37 AM [facility] SGPT (ALT) 13 <=33 U/L 09/15/2020 11:37 AM [facility] ALKALINE PHOSPHATASE 58 35 - 105 U/L 09/15/2020 11:37 AM [facility] GFR, EST. NONAFRICAN >60 >=60 09/15/2020 11:37 AM [facility] GFR, EST. >60 >=60 020 11:37 AM [facility] Comment: Creatinine Clearance is the preferred criteria for selecting drug dose adjustments in renally impaired patients. The GFR is provided as additional pertinent clinical information. GFR is reported in mL/min/1.73 sq m. IS THE PATIENT REQUIRED TO BE FASTING? No 09/15/2020 11:37 AM [facility] Blood Venipuncture / Unknown 09/15/2020 9:03 AM COMPUTER ENGINEERING TECHNOLOGIST 09/15/2020 10:35 AM COMPUTER ENGINEERING TECHNOLOGIST us Manuel Ventura MD CHEMISTRY ORDERABLES Final Resul t [facility] #1 [place] [address] documented in this encounter Visit Diagnoses Diagnosis Pre-op testing- Primary Preoperative examination, unspecified Pre-op testing Preoperative examination, unspecified Pre-op testing Preoperative examination, unspecified documented in this encounter Additional Health Concerns Infection Onset Date Last Indicated Resolved Time COVID - 19 06/23/2021 06/23/2021 06/29/2021 9:24 PM CDT COVID - 19 09/03/2024 09/03/2024 09/03/2024 9:25 PM COMPUTER ENGINEERING TECHNOLOGIST documented as of this encounter Care Teams Senior Compensation Consultant Relationship Specialty Start Date End Date Winifred Armstrong APRN, DRIVE MAN [address] [place] [address] PCP - General Advanced Practice Nurse 10/17/19 Micky Dickson MD [address] [facility] [address] [place] [address] PCP - General Family Medicine 09/25/23 07/04/24 Silva Vicente MD [address] [facility] [address] [place] [address] PCP - General Family Medicine 07/05/24 Mac Sher MD [address]2 [place] [address] Consulting Physician Neurology 09/15/15 Robert Mae MD #2 [place] [address] Consulting Physician Pulmonary Disease 10/27/22 Maryann El APRN, MEDICAL ILLUSTRATOR [address] [place] [address] Nurse Practitioner Advanced Practice Nurse 12/21/22 Germania Navarro APRN, DRIVE MAN [address] [place] [address] Nurse Practitioner Advanced Practice Nurse 10/04/23 Leny Morales MD [address] [place] [address] Consulting Physician Gastroenterology 01/19/23 documented as of this encounter
--- OUTSIDE RECORDS SUMMARY | 2024-12-17 14:02 | XMS_ITS | Encounter Summary ---
Author Organization [facility] Address [address] [place] [address] Phone Care Team Providers Care Insurance Follow Up Rep Name Role Phone Mac Sher MD Unavailable [phone] Micky Dickson MD Primary Care Provider [phone] Robert Mae MD Unavailable Maryann El APRN, METEOROLOGICAL ENGINEER Unavailable [phone] Germania Navarro APRN, ARMORING MACHINE OPERATOR Unavailable Leny Morales MD Unavailable [phone] Silva Vicente MD Primary Care Provider [phone] Reason for Visit * Reason Comments Medication Refill Encounter Details Date Type Department Care Team (Late st Contact Info) Description 11/18/2023 Refill [facility] - Gastroenterology - [place] #2 [place] [address] Germania Navarro APRN, ARMORING MACHINE OPERATOR [address] [place] [address] Medication Refill Social History Tobacco Use Types [...] Telephone Encounter - Monica Marcelo RN - 11/20/2023 9:30 AM SWIMMING COACH Medication [facility] for pediatric and adult [facility]. MING COACH documented in this encounter Plan of Treatment Upcoming Encounters Date Type Department Care Team (Latest Contact Info) Description 12/30/2024 8:00 AM CDT [facility] 1 [place] [address] Kwadwo Montalvo MD [address] [address] 12/30/2024 8:00 AM CDT - 12/30/2024 8:30 AM CDT [facility] 1 [place] [address] Kwadwo Montalvo MD [address] [address] EGD 01/03/2025 11:30 AM CDT [facility]ment [facility] Res[facility] 1 [place] [address] Robert Mae MD #2 [place] [address] Discharge Disposition: Discharged to home or Selfcare 01/28/2025 10:45 AM CDT Office Visit [facility] - Pulmonology & Sleep Medicine - [place] #2 [facility] [place] [address] Robert Mae MD #2 [place] [address] 03/11/2025 10:30 AM CDT [facility] - [place] [address]2 [facility] [place] [address] Maryann El, LURER, METEOROLOGICAL ENGINEER [address] [place] [address] Scheduled Procedures Name Priority Associated Diagnoses Date/Ti me EGD ULCER OF THE ESOPHAGUS 12/30/2024 8:00 AM CDT documented as of this encounter Visit Diagnoses Not on filedocumented in this encounter Additional Health Concerns Infection Onset Date Last Indicated Resolved Time COVID - 19 09/03/2024 09/03/2024 09/03/2024 9:25 PM SWIMMING COACH documented as of this encounter Care Teams Insurance Follow Up Rep Relationship Specialty Start Date End Date Micky Dickson MD [address] [place] [address] [address] [place] [address] PCP - General Family Medicine 09/25/23 07/04/24 Silva Vicente MD [address] [place] [address] [address] [place] [address] PCP - General Family Medicine 07/05/24 Mac Sher MD #[address] [place] [address] Consulting Physician Neurology 09/15/15 Robert Mae MD [address] [place] [address] Consulting Physician Pulmonary Disease 10/27/22 Maryann El APRN, METEOROLOGICAL ENGINEER [address] [place] [address] Nurse Practitioner Advanced Practice Nurse 12/21/22 Germania Navarro APRN, ARMORING MACHINE OPERATOR [address] [place] [address] Nurse Practitioner Advanced Practice Nurse 10/04/23 Leny Morales MD #[address] [place] [address] Consulting Physician Gastroenterology 01/19/23 documented as of this encounter
--- OUTSIDE RECORDS SUMMARY | 2024-12-17 14:02 | XMS_ITS | Encounter Summary ---
Author Organization [facility] Address [address] [place] [address] Phone Care Team Providers Care Japanese Professor Name Role Phone Mac Sher MD Unavailable Micky Dickson MD Primary Care Provider Robert Mae MD Unavailable Maryann El APRN, SCOURING MACHINE TENDER Unavailable Germania Navarro APRN, SCRAP PICKER Unavailable Leny Morales MD Unavailable [phone] Silva Vicente MD Primary Care Provider [phone] Reason for Visit * Reason Comments Medication Refill Encounter Details Date Type Department Care Team (Late st Contact Info) Description 11/08/2023 Refill [facility] - Neurology - [place] [address]2 [place] [id number] Maryann El APRN, SCOURING MACHINE TENDER [address] [place] [address] Medication Refill Social History Tobacco Use Types [...] Telephone Encounter - Manisha Chavez RN - 11/22/2023 8:35 AM CST Medication failed the protocol, provider to review and approve the medication order if appropriate. Requested Prescriptions Pending Prescriptions Disp Refills primidone (MYSOLINE) 250 MG Tablet [Pharmacy Med Name: Primidone 250 MG Oral Tablet] 120 Tablet 0 Sig: Take 1 tablet by mouth nightly Not Delegated - Anticonvulsants Excluding Benzodiazepines Protocol Failed - 11/08/2023 7:20 AM Failed - This refill cannot be delegated Passed - Visit with relevant provider in past 12 months or upcoming 90 days Recent Visits Date Type Provider Dept 11/16/23 Office Visit [facility] [place] 08/25/23 Procedure Visit Mac Sher MD [facility] [place] 05/26/23 Procedure Visit Mac Sher MD [facility] [place] 05/09/23 Telemedicine Mac Sher MD [facility] [place] 03/01/23 Procedure Visit Mac Sher MD [facility] [place] 02/20/23 Office Visit Maryann El APRN, CNS [facility] [place] 12/21/22 Office Visit Maryann El APRN, CNS [facility] [place] 12/09/22 Procedure Visit Mac Sher MD [facility] [place] Showing recent visits within past 365 days and meeting all other requirements Future Appointments Date Type Provider Dept 11/24/23 Appointment Mac Sher MD [facility] Showing future appointments within next 90 days and meeting all other requirements OL OFFICE MANAGER documented in this encounter Plan of Treatment Upcoming Encounters Date Type Department Care Team (Latest Contact Info) Description 12/30/2024 8:00 AM CDT Hospital Encounter [facility] Gi Lab Periop 1 [place] [address] Kwadwo Montalvo MD 2 [facility] [address] [place] [address] 12/30/2024 8:00 AM CDT - 12/30/2024 8:30 AM CDT Surgery [facility] Gi Lab Periop 1 [place] [address] Kwadwo Montalvo MD 2 [facility] [address] [place] [address] EGD 01/03/2025 11:30 AM CDT Appointment [facility] Respiratory Therapy 1 [place] [address] Robert Mae MD #2 [place] [address] Discharge Disposition: Discharged to home or Selfcare 01/28/2025 10:45 AM CDT Office Visit [facility] - Pulmonology & Sleep Medicine - [place] [address] [place] [address] Robert Mae MD #[address] [place] [address] 03/11/2025 10:30 AM CDT Office Visit [facility] - Neurology [facility] #2 [place] [address] Maryann El APRN, SCOURING MACHINE TENDER [address] [place] [address] Scheduled Procedures Name Priority Associated Diagnoses Date/Ti me EGD ULCER OF THE ESOPHAGUS 12/30/2024 8:00 AM CDT documented as of this encounter Visit Diagnoses Diagnosis Essential tremor Essential and other specified forms of tremor documented in this encounter Additional Health Concerns Infection Onset Date Last Indicated Resolved Time COVID - 19 09/03/2024 09/03/2024 09/03/2024 9:25 PM SCHOOL OFFICE MANAGER documented as of this encounter Care Teams Japanese Professor Relationship Specialty Start Date End Date Micky Dickson MD [address] [facility] [address] [place] [address] PCP - General Family Medicine 09/25/23 07/04/24 Silva Vicente MD [address] [facility] [address] [place] [address] PCP - General Family Medicine 07/05/24 Mac Sher MD #[address] [place] [address] Consulting Physician Neurology 09/15/15 Robert Mae MD #[address] [place] [address] Consulting Physician Pulmonary Disease 10/27/22 Maryann El APRN, SCOURING MACHINE TENDER [address] [place] [address] Nurse Practitioner Advanced Practice Nurse 12/21/22 Germania Navarro APRN, SCRAP PICKER [address] [place] [address] Nurse Practitioner Advanced Practice Nurse 10/04/23 Leny Morales MD #[address] [place] [address] Consulting Physician Gastroenterology 01/19/23 documented as of this encounter
--- OUTSIDE RECORDS SUMMARY | 2024-12-17 14:02 | XMS_ITS | Encounter Summary ---
Author Organization [facility] Address [address] [place] [address] Phone Care Team Providers Care Blacksmith Assistant Name Role Phone Mac Sher MD Unavailable [phone] Winifred Armstrong ENGRAVER JEWELRY, VEHICLE PAINTER Primary Care Provider Micky Dickson MD Primary Care Provider [phone] Robert Mae MD Unavailable Maryann El APRN, GEAR ROOM KEEPER Unavailable + [phone] Germania Navarro APRN, VEHICLE PAINTER Unavailable Leny Morales MD Unavailable [phone] Silva Vicente MD Primary Care Provider [phone] Encounter Details Date Type Department Care Team (Latest Contact Info) Description 04/18/2022 [facility] 1 [place] [id number] Manuel Ventura MD [address] [place] [address] Pre-op testing (Primary Dx) Social History Tobacco [...] Description 12/30/2024 8:00 AM CDT [facility] 1 [place] [address] Kwadwo Montalvo MD [address] [address] 12/30/2024 8:00 AM CDT - 12/30/2024 8:30 AM CDT [facility] 1 [place] [address] Kwadwo Montalvo MD [address] [address] EGD 01/03/2025 11:30 AM CDT [facility]ment [facility] Res[facility] 1 [place] [address] Robert Mae MD #2 [place] [address] Discharge Disposition: Discharged to home or Selfcare 01/28/2025 10:45 AM CDT Office Visit [facility] - Pulmonology & Sleep Medicine - [place] #2 [place] [address] Robert Mae MD #2 [place] [address] 03/11/2025 10:30 AM CDT Office Visit [facility] Neurology - [place] #2 [place] [address] Maryann El APRN, GEAR ROOM KEEPER #2 [place] [address] Scheduled Procedures Name Priority Associated Diagnoses Date/Ti me EGD ULCER OF THE ESOPHAGUS 12/30/2024 8:00 AM CDT documented as of this encounter Results * SARS-COV-2 BY MOLECULAR (04/18/2022 3:27 PM CDT) SARSCOV2 NOT DETECTED (Referenc e Range for this test is Not Detected) [facility] ID NOW B 04/18/2022 4:36 PM CDT [facility] Comment:This test was perfor med by a MOLECULAR, NON-PCR method Other NASOPHARYNGEAL STRUCTURE / Unknown Non-Phlebotomy Collection / Unknown 04/18/2022 3:27 PM CDT 04/18/2022 3:59 PM CDT Narrative [facility] - 04/18/2022 4:36 PM CDT This test has been authorized by the FDA under an Emergency Use Authorization (EUA) only. Negative results should be treated as presumptive and, if inconsistent with clinical signs and symptoms or necessary for patient management, the patient should be tested with an alternative molecular assay. Negative results do not preclude SARS-CoV-2 infection or any other respiratory pathogen. Additional information for Clinicians can be found at: https://www.fda.gov/media/629015/download Additional information for Patients can be found at: https://www.[employer]gov/media/974719/download us Manuel Ventura MD MICROBIOLOGY - GENERAL ORDERABLE S Final Result [facility]1 [place] [address] documented in this encounter Visit Diagnoses Diagnosis Pre-op testing- Primary Preoperative examination, unspecified documented in this encounter Additional Health Concerns Infection Onset Date Last Indicated Resolved Time COVID - 19 09/03/2024 09/03/2024 09/03/2024 9:25 PM INTERNAL MEDICINE SPECIALIST documented as of this encounter Care Teams Blacksmith Assistant Relationship Specialty Start Date End Date Winifred Armstrong APRN, VEHICLE PAINTER [address] [place] [address] PCP - General Advanced Practice Nurse 10/17/19 Micky Dickson MD [address] [place] [address] [address] CASTRO [address] [place] [address] PCP - General Family Medicine 09/25/23 07/04/24 Silva Vicente MD [address] [place] [address] DR CASTRO [address] [place] [address] PCP - General Family Medicine 07/05/24 Mac Sher MD #2 [place] [address] Consulting Physician Neurology 09/15/15 Robert Mae MD #2 [place] [address] Consulting Physician Pulmonary Disease 10/27/22 Maryann El APRN, GEAR ROOM KEEPER #2 [place] [address] Nurse Practitioner Advanced Practice Nurse 12/21/22 Germania Navarro APRN, VEHICLE PAINTER #2 [place] [address] Nurse Practitioner Advanced Practice Nurse 10/04/23 Leny Morales MD #2 [place] [address] Consulting Physician Gastroenterology 01/19/23 documented as of this encounter
--- OUTSIDE RECORDS SUMMARY | 2024-12-17 14:02 | XMS_ITS | Encounter Summary ---
Author Organization [facility] Address [address] [place] [address] Phone Care Team Providers Care Reference Assistant Name Role Phone Mac Sher MD Unavailable [phone] Winifred Armstrong ORACLE SCM CONSULTANT, ICT QUALITY ASSURANCE ENGINEER Primary Care Provider Micky Dickson MD Primary Care Provider Robert Mae MD Unavailable Maryann El APRN, BUDGET TECHNICIAN Unavailable + [phone] Germania Navarro APRN, ICT QUALITY ASSURANCE ENGINEER Unavailable Leny Morales MD Unavailable [phone] Silva Vicente MD Primary Care Provider [phone] Reason for Visit * Reason Comments Medication Refill Encounter Details Date Type Department Care Team (Late st Contact Info) Description 11/28/2021 Refill [facility] - Neurology - [place] #2 [place] [address] Mac Sher MD #2 [place] [address] Medication Refill Social History Tobacco [...] have Coronavirus / COVID-19? No / Unsure 11/30/2021 10:22 AM CLIENT SUPPORT MANAGER documented as of this encounter Plan of Treatment Upcoming Encounters Date Type Department Care Team (Latest Contact Info) Description 12/30/2024 8:00 AM CDT [facility] 1 [place] [address] Kwadwo Montalvo MD [address] [address] 12/30/2024 8:00 AM CDT - 12/30/2024 8:30 AM CDT [facility] 1 [place] [address] Kwadwo Montalvo MD [address] [address] EGD 01/03/2025 11:30 AM CDT [facility] 1 [place] [address] Robert Mae MD #2 [place] [address] Discharge Disposition: Discharged to home or Selfcare 01/28/2025 10:45 AM CDT Office Visit [facility] - Pulmonology & Sleep Medicine - [place] #2 [place] [address] Robert Mae MD #2 [place] [address] 03/11/2025 10:30 AM CDT [facility] [place] #2 [place] [address] Maryann El, ORACLE SCM CONSULTANT, BUDGET TECHNICIAN #2 [place] [address] Scheduled Procedures Name Priority Associated Diagnoses Date/Ti me EGD ULCER OF THE ESOPHAGUS 12/30/2024 8:00 AM CDT documented as of this encounter Visit Diagnoses Not on filedocumented in this encounter Additional Health Concerns Infection Onset Date Last Indicated Resolved Time COVID - 19 09/03/2024 09/03/2024 09/03/2024 9:25 PM CLIENT SUPPORT MANAGER documented as of this encounter Care Teams Reference Assistant Relationship Specialty Start Date End Date Winifred Armstrong, ORACLE SCM CONSULTANT, ICT QUALITY ASSURANCE ENGINEER [address] [place] [address] PCP - General Advanced Practice Nurse 10/17/19 Micky Dickson MD [address] [place] [address] [place] [address] PCP - General Family Medicine 09/25/23 07/04/24 Silva Vicente MD [address] [place] [address] [place] [address] PCP - General Family Medicine 07/05/24 Mac Sher MD #2 [place] [address] Consulting Physician Neurology 09/15/15 Robert Mae MD #2 [place] [address] Consulting Physician Pulmonary Disease 10/27/22 Maryann El APRN, BUDGET TECHNICIAN #2 [place] [address] Nurse Practitioner Advanced Practice Nurse 12/21/22 Germania Navarro APRN, ICT QUALITY ASSURANCE ENGINEER #2 [place] [address] Nurse Practitioner Advanced Practice Nurse 10/04/23 Leny Morales MD #2 [place] [address] Consulting Physician Gastroenterology 01/19/23 documented as of this encounter
--- OUTSIDE RECORDS SUMMARY | 2024-12-17 14:02 | XMS_ITS | Encounter Summary ---
Author Organization [facility] Address [address] [place] [address] Phone Care Team Providers Care Diamond Saw Operator Name Role Phone Mac Sher MD Unavailable [phone] Winifred Armstrong DIRECTOR OF CARDIOLOGY, GROUNDSKEEPER PORTER Primary Care Provider Micky Dickson MD Primary Care Provider [phone] Robert Mae MD Unavailable Maryann El APRN, UNIT AIDE Unavailable + [phone] Germania Navarro APRN, GROUNDSKEEPER PORTER Unavailable Leny Morales MD Unavailable [phone] Silva Vicente MD Primary Care Provider [phone] Reason for Visit * Reason Comments Medication Refill Encounter Details Date Type Department Care Team (Late st Contact Info) Description 05/09/2022 Refill [facility] - Neurology - [place] #2 [place] [address] Mac Sher MD #2 [place] [address] Medication Refill Social History Tobacco [...] Description 12/30/2024 8:00 AM CDT [facility] 1 [place] [address] Kwadwo Montalvo MD [address] [address] 12/30/2024 8:00 AM CDT - 12/30/2024 8:30 AM CDT [facility] 1 [place] [address] Kwadwo Montalvo MD [address] [address] EGD 01/03/2025 11:30 AM CDT [facility] 1 [place] [address] Robert Mae MD #2 [place] [address] Discharge Disposition: Discharged to home or Selfcare 01/28/2025 10:45 AM CDT Office Visit [facility] - Pulmonology & Sleep Medicine - [place] #2 [place] [address] Robert Mae MD #2 [place] [address] 03/11/2025 10:30 AM CDT [facility] [place] #2 [place] [address] Maryann El, DIRECTOR OF CARDIOLOGY, UNIT AIDE #2 [place] [address] Scheduled Procedures Name Priority Associated Diagnoses Date/Ti me EGD ULCER OF THE ESOPHAGUS 12/30/2024 8:00 AM CDT documented as of this encounter Visit Diagnoses Not on filedocumented in this encounter Additional Health Concerns Infection Onset Date Last Indicated Resolved Time COVID - 19 09/03/2024 09/03/2024 09/03/2024 9:25 PM VP OF DIGITAL MARKETING documented as of this encounter Care Teams Diamond Saw Operator Relationship Specialty Start Date End Date Winifred Armstrong, DIRECTOR OF CARDIOLOGY, GROUNDSKEEPER PORTER [address] [place] [address] PCP - General Advanced Practice Nurse 10/17/19 Micky Dickson MD [address] [place] [address] [place] [address] PCP - General Family Medicine 09/25/23 07/04/24 Silva Vicente MD [address] [place] [address] [place] [address] PCP - General Family Medicine 07/05/24 Mac Sher MD #2 [place] [address] Consulting Physician Neurology 09/15/15 Robert Mae MD #2 [place] [address] Consulting Physician Pulmonary Disease 10/27/22 Maryann El, DIRECTOR OF CARDIOLOGY, UNIT AIDE #[address] [place] [address] Nurse Practitioner Advanced Practice Nurse 12/21/22 Germania Navarro APRN, GROUNDSKEEPER PORTER #2 [place] [address] Nurse Practitioner Advanced Practice Nurse 10/04/23 Leny Morales MD #2 [place] [address] Consulting Physician Gastroenterology 01/19/23 documented as of this encounter
--- OUTSIDE RECORDS SUMMARY | 2024-12-17 14:02 | XMS_ITS | Encounter Summary ---
Author Organization [facility] Address [address] [place] [address] Phone Care Team Providers Care Scientific Specialist Name Role Phone Mac Sher MD Unavailable [phone] Winifred Armstrong MECHANICAL ENGINEERING LECTURER, LAY OUT TECHNICIAN Primary Care Provider Micky Dickson MD Primary Care Provider [phone] Robert Mae MD Unavailable Maryann El APRN, MARKETING SALES REPRESENTATIVE Unavailable + [phone] Germania Navarro APRN, LAY OUT TECHNICIAN Unavailable Leny Morales MD Unavailable [phone] Silva Vicente MD Primary Care Provider [phone] Encounter Details Date Type Department Care Team (Latest Contact Info) Description 09/28/2021 [facility] 1 [place] [address] Manuel Ventura MD [address] [place] [address] Pre-op testing (Primary Dx) Social History Tobacco [...] have Coronavirus / COVID-19? No / Unsure 10/01/2021 9:52 AM STONE LATHE OPERATOR documented as of this encounter Plan of Treatment Upcoming Encounters Date Type Department Care Team (Latest Contact Info) Description 12/30/2024 8:00 AM CDT [facility] 1 [place] [address] Kwadwo Montalvo MD [address] [address] 12/30/2024 8:00 AM CDT - 12/30/2024 8:30 AM CDT [facility] 1 [place] [address] Kwadwo Montalvo MD [address] [address] EGD 01/03/2025 11:30 AM CDT [facility] Res[facility] 1 [place] [address] Robert Mae MD #2 [place] [address] Discharge Disposition: Discharged to home or Selfcare 01/28/2025 10:45 AM CDT Office Visit [facility] - Pulmonology & Sleep Medicine - [place] #2 [place] [address] Robert Mae MD #2 [place] [address] 03/11/2025 10:30 AM CDT Office Visit [facility] - Neurology - [place] #2 [place] [address] Maryann El APRN, MARKETING SALES REPRESENTATIVE #2 [place] [address] Scheduled Procedures Name Priority Associated Diagnoses Date/Ti me EGD ULCER OF THE ESOPHAGUS 12/30/2024 8:00 AM CDT documented as of this encounter Results * TYPE & SCREEN (CROSSMATCH CONVERTIBLE) (10/01/2021 10:01 AM STONE LATHE OPERATOR) ABO TYPING A 10/01/2021 11:48 AM STONE LATHE OPERATOR [facility] BLOOD [facility] RH Negative 10/01/2021 11:48 AM STONE LATHE OPERATOR [facility] ABSC Negative 10/01/2021 11:48 AM STONE LATHE OPERATOR [facility] Blood Venipuncture / Unknown 10/01/2021 10:01 AM STONE LATHE OPERATOR 10/01/2021 10:06 AM STONE LATHE OPERATOR us Manuel Ventura MD BLOOD BANK ORDERABLES Edited Res ult - Final [facility] BLOOD B[facility] #1 [place] [address] documented in this encounter Visit Diagnoses Diagnosis Pre-op testing- Primary Preoperative examination, unspecified documented in this encounter Additional Health Concerns Infection Onset Date Last Indicated Resolved Time COVID - 19 09/03/2024 09/03/2024 09/03/2024 9:25 PM STONE LATHE OPERATOR documented as of this encounter Care Teams Scientific Specialist Relationship Specialty Start Date End Date Winifred Armstrong APRN, LAY OUT TECHNICIAN [address] [place] [address] PCP - General Advanced Practice Nurse 10/17/19 Micky Dickson MD [address] [place] [address] [address] CASTRO [address] [place] [address] PCP - General Family Medicine 09/25/23 07/04/24 Silva Vicente MD [address] [facility] [address] [place] [address] PCP - General Family Medicine 07/05/24 Mac Sher MD #2 [place] [address] Consulting Physician Neurology 09/15/15 Robert Mae MD #2 [place] [address] Consulting Physician Pulmonary Disease 10/27/22 Maryann El APRN, MARKETING SALES REPRESENTATIVE #2 [place] [address] Nurse Practitioner Advanced Practice Nurse 12/21/22 Germania Navarro APRN, LAY OUT TECHNICIAN #2 [place] [address] Nurse Practitioner Advanced Practice Nurse 10/04/23 Leny Morales MD #2 [place] [address] Consulting Physician Gastroenterology 01/19/23 documented as of this encounter
--- OUTSIDE RECORDS SUMMARY | 2024-12-17 14:02 | XMS_ITS | Encounter Summary ---
Author Organization [facility] Address [address] [place] [address] Phone Care Team Providers Care Boilermaker Apprentice Name Role Phone Mac Sher MD Unavailable [phone] Winifred Armstrong MANAGER FINANCIAL SERVICES, DIRECTOR DIGITAL STRATEGY Primary Care Provider Micky Dickson MD Primary Care Provider [phone] Robert Mae MD Unavailable Maryann El APRN, CHARTER DRIVER Unavailable + [phone] Germania Navarro APRN, DIRECTOR DIGITAL STRATEGY Unavailable Leny Morales MD Unavailable [phone] Silva Vicente MD Primary Care Provider [phone] Reason for Visit * Reason Comments Medication Refill Encounter Details Date Type Department Care Team (Late st Contact Info) Description 05/04/2021 Refill [facility] - Neurology - [place] #2 [place] [address] Maryann El, CESAR, CHARTER DRIVER #2 [place] [address] Medication Refill Social History Tobacco Use Types [...] 12/30/2024 8:00 AM CDT [facility] 1 [place] [address] Kwadwo Montalvo MD [address] [address] 12/30/2024 8:00 AM CDT - 12/30/2024 8:30 AM CDT [facility] 1 [place] [address] Kwadwo Montalvo MD [address] [address] EGD 01/03/2025 11:30 AM CDT [facility] 1 [place] [address] Robert Mae MD #2 [place] [address] Discharge Disposition: Discharged to home or Selfcare 01/28/2025 10:45 AM CDT Office Visit [facility] - Pulmonology & Sleep Medicine - [place] #2 [place] [address] Robert Mae MD #2 [place] [address] 03/11/2025 10:30 AM CDT Office Visit [facility] - Neu[facility] #2 [place] [address] Maryann El, MANAGER FINANCIAL SERVICES, CHARTER DRIVER #2 [place] [address] Scheduled Procedures Name Priority Associated Diagnoses Date/Ti [...] 19 09/03/2024 09/03/2024 09/03/2024 9:25 PM HYDRAULIC BILLET MAKER documented as of this encounter Care Teams Boilermaker Apprentice Relationship Specialty Start Date End Date Winifred Armstrong, MANAGER FINANCIAL SERVICES, DIRECTOR DIGITAL STRATEGY [address] [place] [address] PCP - General Advanced Practice Nurse 10/17/19 Micky Dickson MD [address] [place] [address] [address] [place] [address] PCP - General Family Medicine 09/25/23 07/04/24 Silva Vicente MD [address] [place] [address] [place] [address] PCP - General Family Medicine 07/05/24 Mac Sher MD #2 [place] [address] Consulting Physician Neurology 09/15/15 Robert Mae MD #2 [place] [address] Consulting Physician Pulmonary Disease 10/27/22 Maryann El APRN, CHARTER DRIVER #2 [place] [address] Nurse Practitioner Advanced Practice Nurse 12/21/22 Germania Navarro APRN, DIRECTOR DIGITAL STRATEGY #2 [place] [address] Nurse Practitioner Advanced Practice Nurse 10/04/23 Leny Morales MD #2 [place] [address] Consulting Physician Gastroenterology 01/19/23 documented as of this encounter
--- OUTSIDE RECORDS SUMMARY | 2024-12-17 14:02 | XMS_ITS | Encounter Summary ---
Author Organization [facility] Address [address] [place] [address] Phone Care Team Providers Care Submarine Cable Equipment Technician Name Role Phone Mac Sher MD Unavailable [phone] Winifred Armstrong PRODUCTION COORDINATOR, FRENCH TUTOR Primary Care Provider Micky Dickson MD Primary Care Provider Robert Mae MD Unavailable Maryann El APRN, MIXER DRIVER Unavailable + [phone] Germania Navarro APRN, FRENCH TUTOR Unavailable Leny Morales MD Unavailable [phone] Silva Vicente MD Primary Care Provider [phone] Reason for Visit * Reason Comments Medication Refill Encounter Details Date Type Department Care Team (Late st Contact Info) Description 04/04/2023 [facility]ill [facility]ology - [place] #2 [place] [address] Germania Navarro APRN, FRENCH TUTOR #[address] [place] [address] Medication Refill Social History Tobacco Use Types [...] Telephone Encounter - Monica Marcelo RN - 04/05/2023 8:48 AM CDT Medication refilled and signed per [facility] medication standing order for pediatric and adult patients. documented in this encounter Plan of Treatment Upcoming Encounters Date Type Department Care Team (Latest Contact Info) Description 12/30/2024 8:00 AM CDT [facility] 1 [place] [address] Kwadwo Montalvo MD [facility] [address] [address] 12/30/2024 8:00 AM CDT - 12/30/2024 8:30 AM CDT [facility] 1 [facility] [address] Kwadwo Montalvo MD 2 [facility] [address] [address] EGD 01/03/2025 11:30 AM CDT [facility] 1 [facility] [address] Robert Mae MD #2 [place] [address] Discharge Disposition: Discharged to home or Selfcare 01/28/2025 10:45 AM CDT Office Visit [facility] - Pulmonology & Sleep Medicine - [place] #2 [place] [address] Robert Mae MD #2 [place] [address] 03/11/2025 10:30 AM CDT [facility] [place] #2 [place] [address] Maryann El PRODUCTION COORDINATOR, MIXER DRIVER #2 [place] [address] Scheduled Procedures Name Priority Associated Diagnoses Date/Ti me EGD ULCER OF THE ESOPHAGUS 12/30/2024 8:00 AM CDT documented as of this encounter Visit Diagnoses Not on filedocumented in this encounter Additional Health Concerns Infection Onset Date Last Indicated Resolved Time COVID - 19 09/03/2024 09/03/2024 09/03/2024 9:25 PM SHOP ESTIMATOR documented as of this encounter Care Teams Submarine Cable Equipment Technician Relationship Specialty Start Date End Date Winifred Armstrong APRN, FRENCH TUTOR [address] [place] [address] PCP - General Advanced Practice Nurse 10/17/19 Micky Dickson MD [address] [place] [address] [address] [place] [address] PCP - General Family Medicine 09/25/23 07/04/24 Silva Vicente MD [address] [place] [address] [address] PCP - General Family Medicine 07/05/24 Mac Sher MD #2 [place] [address] Consulting Physician Neurology 09/15/15 Robert Mae MD #2 [place] [address] Consulting Physician Pulmonary Disease 10/27/22 Maryann El APRN, MIXER DRIVER #2 [place] [address] Nurse Practitioner Advanced Practice Nurse 12/21/22 Germania Navarro APRN, FRENCH TUTOR #[address] [place] [address] Nurse Practitioner Advanced Practice Nurse 10/04/23 Leny Morales MD #2 [place] [address] Consulting Physician Gastroenterology 01/19/23 documented as of this encounter
--- OUTSIDE RECORDS SUMMARY | 2024-12-17 14:02 | XMS_ITS | Encounter Summary ---
Author Organization [facility] Address [address] [place] [address] Phone Care Team Providers Care Miner Operator Name Role Phone Mac Sher MD Unavailable [phone] Winifred Armstrong COMPLEX CASE MANAGER, MAKEUP SALES CONSULTANT Primary Care Provider Micky Dickson MD Primary Care Provider Robert Mae MD Unavailable Maryann El APRN, SNUFF GRINDER AND SCREENER Unavailable + [phone] Germania Navarro APRN, MAKEUP SALES CONSULTANT Unavailable Leny Morales MD Unavailable [phone] Silva Vicente MD Primary Care Provider [phone] Reason for Visit * Reason Comments Medication Refill Encounter Details Date Type Department Care Team (Late st Contact Info) Description 03/15/2023 Refill [facility] - Neurology - [place] [address] [place] [address] Mac Sher MD #2 [place] [address] Medication Refill Social History Tobacco [...] suspected to have Coronavirus/COVID-19? No / Unsure 03/01/2023 12:53 PM CDT documented as of this encounter Miscellaneous Notes * Telephone Encounter - Manisha Chavez RN - 03/15/2023 8:13 AM CDT Medication failed the protocol, provider to review and approve the medication order if appropriate. Requested Prescriptions Pending Prescriptions Disp Refills Topiramate 50 MG Tablet [Pharmacy Med Name: Topiramate 50 MG Oral Tablet] 60 Tablet 3 Sig: Take 1 tablet by mouth twice daily Not Delegated - Anticonvulsants Excluding Benzodiazepines Protocol Failed - 03/15/2023 5:59 AM Failed - This refill cannot be delegated Passed - Visit with relevant provider in past 12 months or upcoming 90 days Recent Visits Date Type Provider Dept 03/01/23 Procedure Visit Mac Sher MD [facility] 02/20/23 Office Visit Maryann El APRN SNUFF GRINDER AND SCREENER [facility] 12/21/22 Office Visit Maryann El APRN, [facility] 12/09/22 Procedure Visit Mac Sher [facility] 09/02/22 Procedure Visit Mac Sher [facility] 06/10/22 Procedure Visit Mac Sher MD [facility] 03/18/22 Procedure Visit Mac Sher MD [facility] Showing recent visits within past 365 days and meeting all other requirements Future Appointments Date Type Provider Dept 03/30/23 Appointment Mac Sher MD [facility] 05/23/23 Appointment Maryann El APRN, SNUFF GRINDER AND SCREENER [facility] 05/26/23 Appointment Mac Sher MD [facility] Showing future appointments within next 90 days and meeting all other requirements documented in this encounter Plan of Treatment Upcoming Encounters Date Type Department Care Team (Latest Contact Info) Description 12/30/2024 8:00 AM CDT Hospital Encounter [facility] Gi Lab Periop [address] [place] [address] Kwadwo Montalvo MD [address] [address] 12/30/2024 8:00 AM CDT - 12/30/2024 8:30 AM CDT Surgery [facility] Gi Lab Periop 1 [place] [address] Kwadwo Montalvo MD [address] [address] EGD 01/03/2025 11:30 AM CDT [facility] 1 [place] [address] Robert Mae MD [address]2 [place] [address] Discharge Disposition: Discharged to home or Selfcare 01/28/2025 10:45 AM CDT Office Visit [facility] - Pulmonology & Sleep Medicine - [place] [address] [place] [address] Robert Mae MD #2 [place] [address] 03/11/2025 10:30 AM CDT Office Visit [facility] - Neurology - [place] [address] [place] [address] Maryann El COMPLEX CASE MANAGER, SNUFF GRINDER AND SCREENER [address]2 [place] [address] Scheduled Procedures Name Priority Associated Diagnoses Date/Ti me EGD ULCER OF THE ESOPHAGUS 12/30/2024 8:00 AM CDT documented as of this encounter Visit Diagnoses Not on filedocumented in this encounter Additional Health Concerns Infection Onset Date Last Indicated Resolved Time COVID - 19 09/03/2024 09/03/2024 09/03/2024 9:25 PM VISUAL ASSOCIATE documented as of this encounter Care Teams Miner Operator Relationship Specialty Start Date End Date Winifred Armstrong, COMPLEX CASE MANAGER, MAKEUP SALES CONSULTANT [address] [place] [address] PCP - General Advanced Practice Nurse 10/17/19 Micky Dickson MD [address] [place] [address] [place] [address] PCP - General Family Medicine 09/25/23 07/04/24 Silva Vicente MD [address] [place] [address] [place] [address] PCP - General Family Medicine 07/05/24 Mac Sher MD #2 [place] [address] Consulting Physician Neurology 09/15/15 Robert Mae MD #2 [place] [address] Consulting Physician Pulmonary Disease 10/27/22 Maryann El APRN, SNUFF GRINDER AND SCREENER #2 [place] [address] Nurse Practitioner Advanced Practice Nurse 12/21/22 Germania Nvaarro APRN, MAKEUP SALES CONSULTANT #2 [place] [address] Nurse Practitioner Advanced Practice Nurse 10/04/23 Leny Morales MD #2 [place] [address] Consulting Physician Gastroenterology 01/19/23 documented as of this encounter
--- OUTSIDE RECORDS SUMMARY | 2024-12-17 14:02 | XMS_ITS | Encounter Summary ---
Author Organization [facility] Address [address] [place] [address] Phone Care Team Providers Care Roller Setter Name Role Phone Mac Sher MD Unavailable Winifred Armstrong DATA INTEGRITY SPECIALIST, LEAD SPRINKLER Primary Care Provider Micky Dickson MD Primary Care Provider [phone] Robert Mae MD Unavailable Maryann El APRN, OPERATIONS ADMINISTRATOR Unavailable + [phone] Germania Navarro APRN, LEAD SPRINKLER Unavailable Leny Morales MD Unavailable [phone] Silva Vicente MD Primary Care Provider [phone] Reason for Visit * Reason Comments Medication Refill Encounter Details Date Type Department Care Team (Late st Contact Info) Description 08/08/2022 Refill [facility] - Neurology - [place] [address] [place] [address] Mac Sher MD [address]2 [place] [address] Medication Refill Social History Tobacco [...] 8:00 AM CDT [facility] 1 [place] [address] Kwadwo Montalvo MD [address] [address] 12/30/2024 8:00 AM CDT - 12/30/2024 8:30 AM CDT [facility] 1 [place] [address] Kwadwo Montalvo MD [address] [address] EGD 01/03/2025 11:30 AM CDT [facility] 1 [place] [address] Robert Mae MD #2 [place] [address] Discharge Disposition: Discharged to home or Selfcare 01/28/2025 10:45 AM CDT Office Visit [facility] - Pulmonology & Sleep Medicine - [place] [address] [place] [address] Robert Mae MD #2 [place] [address] 03/11/2025 10:30 AM CDT [facility] [place] [address]2 [place] [address] Maryann El, DATA INTEGRITY SPECIALIST, OPERATIONS ADMINISTRATOR #2 [place] [address] Scheduled Procedures Name Priority Associated Diagnoses Date/Ti me EGD ULCER OF THE ESOPHAGUS 12/30/2024 8:00 AM CDT documented as of this encounter Visit Diagnoses Not on filedocumented in this encounter Additional Health Concerns Infection Onset Date Last Indicated Resolved Time COVID - 19 09/03/2024 09/03/2024 09/03/2024 9:25 PM ATHLETIC SHOE DESIGNER documented as of this encounter Care Teams Roller Setter Relationship Specialty Start Date End Date Winifred Armstrong, DATA INTEGRITY SPECIALIST, LEAD SPRINKLER [address] [place] [address] PCP - General Advanced Practice Nurse 10/17/19 Micky Dickson MD [address] [facility] [address] [place] [address] PCP - General Family Medicine 09/25/23 07/04/24 Silva Vicente MD [address] [facility] [facility] [facility] [address] [place] [address] PCP - General Family Medicine 07/05/24 Mac Sher MD [address] [place] [address] Consulting Physician Neurology 09/15/15 Robert Mae MD #2 [place] [address] Consulting Physician Pulmonary Disease 10/27/22 Maryann El APRN, OPERATIONS ADMINISTRATOR #2 [place] [address] Nurse Practitioner Advanced Practice Nurse 12/21/22 Germania Navarro APRN, LEAD SPRINKLER [address]2 [place] [address] Nurse Practitioner Advanced Practice Nurse 10/04/23 Leny Morales MD #2 [place] [address] Consulting Physician Gastroenterology 01/19/23 documented as of this encounter
--- OUTSIDE RECORDS SUMMARY | 2024-12-17 14:02 | XMS_ITS | Encounter Summary ---
Author Organization [facility] Address [address] [place] [address] Phone Care Team Providers Care Keno Writer / Runner Name Role Phone Mac Sher MD Unavailable [phone] Winifred Armstrong WOOD BOATBUILDER, JOB DEVELOPMENT SPECIALIST Primary Care Provider Micky Dickson MD Primary Care Provider [phone] Robert Mae MD Unavailable Maryann El WOOD BOATBUILDER, STATIONARY PLANT OPERATORS Unavailable + [phone] Germania Navarro APRN, JOB DEVELOPMENT SPECIALIST Unavailable Leny Moarles MD Unavailable [phone] Silva Vicente MD Primary Care Provider [phone] Reason for Referral * Radiology Services (Routine) - Closed Specialty Diagnoses / Procedures Referred By Jo Ann sandoval Referred To Contact Radiology Diagnoses Pre-op testing Procedures EKG 12 LEAD Manuel Ventura MD Phone: tel: fax: Referral ID Status Reason Start Date Expiration Date Visits Re quested Visits Authorized [id number] Closed 09/13/2021 1 1 ICATION DBA * Radiology Services (Routine) - Closed Specialty Diagnoses / Procedures Referred By Jo Ann sandoval Referred To Contact Radiology Diagnoses Pre-op testing Procedures XR CHEST 2 VIEWS Manuel Ventura MD Phone: tel: fax: Referral ID Status Reason Start Date Expiration Date Visits Re quested Visits Authorized [id number] Closed 09/13/2021 1 1 ICATION DBA Encounter Details Date Type Department Care Team (Latest Contact Info) Description 09/13/2021 Transcribe Orders [facility] Preop/Pacu II [address] [place] [address] Manuel Ventura MD [address] [place] [address] Pre-op testing (Primary Dx) Social [...] have Coronavirus / COVID-19? No / Unsure 09/13/2021 9:22 AM APPLICATION DBA documented as of this encounter Plan of Treatment Upcoming Encounters Date Type Department Care Team (Latest Contact Info) Description 12/30/2024 8:00 AM CDT [facility] 1 [place] [address] Kwadwo Montalvo MD [address] [address] 12/30/2024 8:00 AM CDT - 12/30/2024 8:30 AM CDT Surgery [facility] Gi Lab Periop 1 [facility] [place] [address] Kwadwo Montalvo MD [address] [facility] [address] [address] EGD 01/03/2025 11:30 AM CDT Appointment [facility] Respiratory Therapy 1 [facility] [place] [address] Robert Mae MD #2 [place] [address] Discharge Disposition: Discharged to home or Selfcare 01/28/2025 10:45 AM CDT Office Visit [facility] - Pulmonology & Sleep Medicine [facility] #2 [place] [address] Robert Mae MD #2 [place] [address] 03/11/2025 10:30 AM CDT Office Visit [facility] - Neurology - [place] #2 [place] [address] Maryann El, WOOD BOATBUILDER, STATION[employer]PER[employer]ORS #[address] [place] [address] Scheduled Procedures Name Priority Associated Diagnoses Date/Ti me EGD ULCER OF THE ESOPHAGUS 12/30/2024 8:00 AM CDT documented as of this encounter Results * XR CHEST 2 VIEWS (09/23/2021 1:52 PM APPLICATION DBA) Anatomical Region Laterality Modality Chest N/A Digital Radiogra phy 09/23/2021 2:16 PM APPLICATION DBA Impressions 09/23/2021 2:18 PM APPLICATION DBA IMPRESSION: Pulmonary emphysema without acute lung disease Narrative 09/23/2021 2:18 PM APPLICATION DBA EXAM DESCRIPTION: XR CHEST 2 VIEWS REASON FOR STUDY: Encounter for other preprocedural examination TECHNIQUE: Frontal and lateral radiographic views of the chest acquired. COMPARISON: 06/23/2021 FINDINGS: LUNGS/PLEURA: There is pulmonary emphysema noted. There is apical thickening present. No infiltrates are noted. HEART/MEDIASTINUM: Heart size is normal. Normal mediastinal and hilar contours. HARDWARE/LINES/TUBES: None. BONES: No acute findings. OTHER: No other significant finding. THIS IS AN ELECTRONICALLY VERIFIED FINAL REPORT 09/23/2021 2:16 PM - Electronically signed by Tan Ko M.D. NC: NC Report ID: [id number] Reading Location: [id number] Procedure Note Tan Ko MD - 09/23/2021 EXAM DESCRIPTION: XR CHEST 2 VIEWS REASON FOR STUDY: Encounter for other preprocedural examination TECHNIQUE: Frontal and lateral radiographic views of the chest acquired. COMPARISON: 06/23/2021 FINDINGS: LUNGS/PLEURA: There is pulmonary emphysema noted. There is apical thickening present. No infiltrates are noted. HEART/MEDIASTINUM: Heart size is normal. Normal mediastinal and hilar contours. HARDWARE/LINES/TUBES: None. BONES: No acute findings. OTHER: No other significant finding. THIS IS AN ELECTRONICALLY VERIFIED FINAL REPORT 09/23/2021 2:16 PM - Electronically signed by Tan Ko M.D. NC: NC Report ID: [id number] Reading Location: [id number] IMPRESSION: Pulmonary emphysema without acute lung disease Manuel Ventura MD IMG DIAGNOSTIC ORDERABLES Final Result * EKG 12 LEAD (09/23/2021 1:39 PM APPLICATION DBA) Ventricular Rate BPM EXTERNAL EKG Atrial Rate BPM EXTERNAL EKG P-R Interval 164 ms EXTERNAL EKG QRS Duration 74 ms EXTERNAL EKG Q-T Duration 382 ms EXTERNAL EKG QTC CALCULATION 424 ms EXTERNAL EKG P [place] 86 degrees EXTERNAL EKG R [place] 77 degrees EXTERNAL EKG T [place] 80 degrees EXTERNAL EKG 09/23/2021 1:39 PM APPLICATION DBA Impressions EXTERNAL EKG - 09/23/2021 2:49 PM APPLICATION DBA Sinus rhythm Early repolarization changes Within normal limits as previously Comparison Summary: No significant change Summary: Normal ECG Compared with:09/15/2020 9:38 AM; 10/17/2019 2:16 PM; 02/16/2016 10:31 AM No significant changes noted Confirmed by Zena [email or web address] on 09/23/2021 2:49:06 PM Narrative Procedure Note Roselia Freitas MD - 09/23/2021 IMPRESSION: Sinus rhythm Early repolarization changes Within normal limits as previously Comparison Summary: No significant change Summary: Normal ECG Compared with:09/15/2020 9:38 AM; 10/17/2019 2:16 PM; 02/16/2016 10:31 AM No significant changes noted Confirmed by Zena Murry [id number] on 09/23/2021 2:49:06 PM us Manuel Ventura MD IMG ECG ORDERABLES Final Result EXTERNAL EKG * ERYTHROCYTE SEDIMENTATION RATE (ESR) (09/23/2021 1:36 PM APPLICATION DBA) ESR (SED RATE, ERYTHROCYTE SEDIMENTATION RATE) 1 <30 mm/h 09/23/2021 3:16 PM APPLICATION DBA [facility] Comment: Patients presenting with increased level of fibrinogen, gamma globulins, or abnormally shaped RBCs could affect the results for the erythrocyte sedimentation rate (ESR). Results should be clinically correlated. Blood Venipuncture / Unknown 09/23/2021 1:36 PM APPLICATION DBA 09/23/2021 2:58 PM APPLICATION DBA us Manuel Ventura MD HEMATOLOGY ORDERABLES Final Resu lt Performing Organization Address City/[facility]/ZIP Co de Phone Number [facility] #[address] [place] [address] * C-REACTIVE PROTEIN (CRP) QUANT (09/23/2021 1:36 PM APPLICATION DBA) C-REACTIVE PROTEIN <=0.30 <0.50 mg/dL 09/23/2021 3:35 PM APPLICATION DBA [facility] Blood Venipuncture / Unknown 09/23/2021 1:36 PM APPLICATION DBA 09/23/2021 2:38 PM APPLICATION DBA Manuel Ventura MD CHEMISTRY ORDERABLES Final Resul t Performing Organization Address [facility]/ZIP Co de Phone Number [facility] [address] [place] [address] * (ABNORMAL) CMP (COMPREHENSIVE METABOLIC PANEL) (09/23/2021 1:36 PM APPLICATION DBA) SODIUM 141 136 - 144 mmol/L 09/23/2021 3:07 PM [facility] POTASSIUM 4.3 3.5 - 5.1 mmol/L 09/23/2021 3:07 PM APPLICATION DBA [facility] CHLORIDE 108 100 - 110 mmol/L 09/23/2021 3:07 PM APPLICATION DBA [facility] CO2, VENOUS 23 22 - 32 mmol/L 09/23/2021 3:07 PM APPLICATION DBA [facility] ANION GAP 14.3 8.0 - 20.0 mmol/L 09/23/2021 3:07 PM APPLICATION DBA [facility] GLUCOSE 83 70 - 99 mg/dL 09/23/2021 3:07 PM APPLICATION DBA [facility] BUN 20 8 - 23 mg/dL 09/23/2021 3:07 PM [facility] CREATININE, BLOOD 0.83 0.60 - 1.10 mg/dL 09/23/2021 3:07 PM [facility] BUN/CREATININE RATIO 24(H) 12 - 20 ratio 09/23/2021 3:07 PM [facility] TOTAL PROTEIN 6.6 6.0 - 8.3 g/dL 09/23/2021 3:07 PM [facility] ALBUMIN 4.3 3.5 - 5.2 g/dL 09/23/2021 3:07 PM [facility] Comment: The colormetric methods used for the determination of Albumin may lead to falsely elevated test results in patients suffering from renal failure or insufficiency due to interference with other proteins. A/G RATIO 1.9 1.0 - 2.0 09/23/2021 3:07 PM [facility] CALCIUM 9.5 8.9 - 10.3 mg/dL 09/23/2021 3:07 PM [facility] T BILI <0.3 <=1.2 mg/dL 09/23/2021 3:07 PM [facility] SGOT (AST) 14 <=32 U/L 09/23/2021 3:07 PM [facility] SGPT (ALT) 14 <=41 U/L 09/23/2021 3:07 PM [facility] ALKALINE PHOSPHATASE 58 35 - 105 U/L 09/23/2021 3:07 PM [facility] GFR, EST. NONAFRICAN >60 >=60 09/23/2021 3:07 PM [facility] GFR, EST. >60 >=60 021 3:07 PM [facility] Comment: Creatinine Clearance is the preferred criteria for selecting drug dose adjustments in renally impaired patients. The GFR is provided as additional pertinent clinical information. GFR is reported in mL/min/1.73 sq m. IS THE PATIENT REQUIRED TO BE FASTING? No 09/23/2021 3:07 PM [facility] Blood Venipuncture / Unknown 09/23/2021 1:36 PM APPLICATION DBA 09/23/2021 2:38 PM APPLICATION DBA us Manuel Ventura MD CHEMISTRY ORDERABLES Final Resul t [facility] #[address] [place] [address] documented in this encounter Visit Diagnoses Diagnosis Pre-op testing- Primary Preoperative examination, unspecified Pre-op testing Preoperative examination, unspecified Pre-op testing Preoperative examination, unspecified documented in this encounter Additional Health Concerns Infection Onset Date Last Indicated Resolved Time COVID - 19 09/03/2024 09/03/2024 09/03/2024 9:25 PM APPLICATION DBA documented as of this encounter Care Teams Keno Writer / Runner Relationship Specialty Start Date End Date Winifred Armstrong APRN, JOB DEVELOPMENT SPECIALIST [address] [place] [address] PCP - General Advanced Practice Nurse 10/17/19 Micky Dickson MD [address] [place] [address] [address] [place] [address] PCP - General Family Medicine 09/25/23 07/04/24 Silva Vicente MD [address] [place] [address] [address] [place] [address] PCP - General Family Medicine 07/05/24 Mac Sher MD #2 [place] [address] Consulting Physician Neurology 09/15/15 Robert Mae MD #2 [place] [address] Consulting Physician Pulmonary Disease 10/27/22 Maryann El APRN, [employer] #[address] [place] [address] Nurse Practitioner Advanced Practice Nurse 12/21/22 Germania Navarro APRN, JOB DEVELOPMENT SPECIALIST [address] [place] [address] Nurse Practitioner Advanced Practice Nurse 10/04/23 Leny Morales MD #[address] [place] [address] Consulting Physician Gastroenterology 01/19/23 documented as of this encounter
--- OUTSIDE RECORDS SUMMARY | 2024-12-17 14:02 | XMS_ITS | Encounter Summary ---
Author Organization [facility] Address [address] [place] [address] Phone Care Team Providers Care Solar Pv Installer Name Role Phone Mac Sher MD Unavailable [phone] Winifred Armstrong SHANK INSPECTOR, TAX SPECIALIST Primary Care Provider Micky Dickson MD Primary Care Provider Robert Mae MD Unavailable Maryann El APRN, EMAIL MARKETING SPECIALIST Unavailable + [phone] Germania Navarro APRN, TAX SPECIALIST Unavailable Leny Morales MD Unavailable [phone] Silva Vicente MD Primary Care Provider [phone] Reason for Visit * Reason Comments Medication Refill Encounter Details Date Type Department Care Team (Late st Contact Info) Description 05/05/2022 Refill [facility] - Neurology [facility] #[address] [place] [address] Mac Sher MD [address] [place] [address] Medication Refill Social History Tobacco [...] 12/30/2024 8:00 AM CDT [facility] 1 [place] [address] Kwadwo Montalvo MD [address] [address] 12/30/2024 8:00 AM CDT - 12/30/2024 8:30 AM CDT [facility] 1 [place] [address] Kwadwo Montalvo MD [address] [address] EGD 01/03/2025 11:30 AM CDT [facility] 1 [place] [address] Robert Mae MD #[address] [place] [address] Discharge Disposition: Discharged to home or Selfcare 01/28/2025 10:45 AM CDT Office Visit [facility] - Pulmonology & Sleep Medicine - [place] #[address] [place] [address] Robert Mea MD #[address] [place] [address] 03/11/2025 10:30 AM CDT [facility] [place] #2 [place] [address] Maryann El, SHANK INSPECTOR, EMAIL MARKETING SPECIALIST [address] [place] [address] Scheduled Procedures Name Priority Associated Diagnoses Date/Ti me EGD ULCER OF THE ESOPHAGUS 12/30/2024 8:00 AM CDT documented as of this encounter Visit Diagnoses Not on filedocumented in this encounter Additional Health Concerns Infection Onset Date Last Indicated Resolved Time COVID - 19 09/03/2024 09/03/2024 09/03/2024 9:25 PM SPECIAL TESTER documented as of this encounter Care Teams Solar Pv Installer Relationship Specialty Start Date End Date Winifred Armstrong, SHANK INSPECTOR, TAX SPECIALIST [address] [place] [address] PCP - General Advanced Practice Nurse 10/17/19 Micky Dickson MD [address] [place] [address] [place] [address] PCP - General Family Medicine 09/25/23 07/04/24 Silva Vicente MD [address] [place] [address] [place] [address] PCP - General Family Medicine 07/05/24 Mac Sher MD [address] [place] [address] Consulting Physician Neurology 09/15/15 Robert Mae MD #[address] [place] [address] Consulting Physician Pulmonary Disease 10/27/22 Maryann El, SHANK INSPECTOR, EMAIL MARKETING SPECIALIST [address] [place] [address] Nurse Practitioner Advanced Practice Nurse 12/21/22 Germania Navarro APRN, TAX SPECIALIST #[address] [place] [address] Nurse Practitioner Advanced Practice Nurse 10/04/23 Leny Morales MD [address] [place] [address] Consulting Physician Gastroenterology 01/19/23 documented as of this encounter
--- OUTSIDE RECORDS SUMMARY | 2024-12-17 14:02 | XMS_ITS | Encounter Summary ---
Author Organization [facility] Address [address] [place] [address] Phone Care Team Providers Care Industrial Aerial Installer Name Role Phone Mac Sher MD Unavailable [phone] Winifred Armstrong WEB PROGRAMMER, HOUSING DIRECTOR Primary Care Provider iMcky Dickson MD Primary Care Provider Robert Mae MD Unavailable Maryann El APRN, TEST CARRIER Unavailable + [phone] Germania Navarro APRN, HOUSING DIRECTOR Unavailable Leny Morales MD Unavailable [phone] Silva Vicente MD Primary Care Provider [phone] Reason for Visit * Reason Comments Medication Refill Encounter Details Date Type Department Care Team (Late st Contact Info) Description 09/17/2021 Refill [facility] - Neurology - [place] [address] [place] [address] Mac Sher MD #2 [place] [address] Medication Refill Social History Tobacco [...] COVID-19? No / Unsure 09/13/2021 9:22 AM DOOR AND ARRIVAL ATTENDANT documented as of this encounter Plan of Treatment Upcoming Encounters Date Type Department Care Team (Latest Contact Info) Description 12/30/2024 8:00 AM CDT Hospital Encounter [facility] Gi Lab Periop 1 [place] [address] Kwadwo Montalvo MD [address] [address] 12/30/2024 8:00 AM CDT - 12/30/2024 8:30 AM CDT Surgery [facility] Periop 1 [place] [address] Kwadwo Montalvo MD [address] [address] EGD 01/03/2025 11:30 AM CDT Appointment [facility] Respiratory Therapy 1 [place] [address] Robert Mae MD #2 [place] [address] Discharge Disposition: Discharged to home or Selfcare 01/28/2025 10:45 AM CDT Office Visit [facility] - Pulmonology & Sleep Medicine - [place] [address] [place] [address] Robert Mae MD #2 [place] [address] 03/11/2025 10:30 AM CDT [facility] [place] #[address] [place] [address] Maryann El, WEB PROGRAMMER, TEST CARRIER #2 [place] [address] Scheduled Procedures Name Priority Associated Diagnoses Date/Ti me EGD ULCER OF THE ESOPHAGUS 12/30/2024 8:00 AM CDT documented as of this encounter Visit Diagnoses Not on filedocumented in this encounter Additional Health Concerns Infection Onset Date Last Indicated Resolved Time COVID - 19 09/03/2024 09/03/2024 09/03/2024 9:25 PM DOOR AND ARRIVAL ATTENDANT documented as of this encounter Care Teams Industrial Aerial Installer Relationship Specialty Start Date End Date Winifred Armstrong, WEB PROGRAMMER, HOUSING DIRECTOR [address] [place] [address] PCP - General Advanced Practice Nurse 10/17/19 Micky Dickson MD [address] [place] [address] [place] [address] PCP - General Family Medicine 09/25/23 07/04/24 Silva Vicente MD [address] [place] [address] [place] [address] PCP - General Family Medicine 07/05/24 Mac Sher MD #2 [place] [address] Consulting Physician Neurology 09/15/15 Robert Mae MD #2 [place] [address] Consulting Physician Pulmonary Disease 10/27/22 Maryann El APRN, TEST CARRIER #2 [place] [address] Nurse Practitioner Advanced Practice Nurse 12/21/22 Germania Navarro APRN, HOUSING DIRECTOR #2 [place] [address] Nurse Practitioner Advanced Practice Nurse 10/04/23 Leny Morales MD #2 [place] [address] Consulting Physician Gastroenterology 01/19/23 documented as of this encounter
--- OUTSIDE RECORDS SUMMARY | 2024-12-17 14:02 | XMS_ITS | Encounter Summary ---
Author Organization [facility] Address [address] [place] [address] Phone Care Team Providers Care Data Entry Processor Name Role Phone Mac Sher MD Unavailable [phone] Winifred Armstrong MAINTENANCE MACHINE REPAIRER, FOOD MOBILE DRIVER Primary Care Provider Micky Dickson MD Primary Care Provider [phone] Robert Mae MD Unavailable Maryann El MAINTENANCE MACHINE REPAIRER, DREDGE PUMP OPERATOR Unavailable + [phone] Germania Navarro APRN, FOOD MOBILE DRIVER Unavailable Leny Morales MD Unavailable [phone] Silva Vicente MD Primary Care Provider [phone] Encounter Details Date Type Department Care Team (Latest Contact Info) Description 03/09/2022 Transcribe [facility] Preop[facility]Pac[facility] 1 [place] [id number] Manuel Ventura MD [address] [place] [address] Radiculopathy, lumbar region (Primary Dx); Encounter for preprocedure screening laboratory testing for COVID-19 Social History Tobacco Use Types Packs/Day Years [...] suspected to have Coronavirus/COVID-19? No / Unsure 03/09/2022 11:04 AM CDT documented as of this encounter Plan of Treatment Upcoming Encounters Date Type Department Care Team (Latest Contact Info) Description 12/30/2024 8:00 AM CDT Hospital [facility] Periop 1 [place] [address] Kwadwo Montalvo MD [address] [address] 12/30/2024 8:00 AM CDT - 12/30/2024 8:30 AM CDT Surgery [facility] Periop 1 [place] [address] Kwadwo Montalvo MD [address] [facility] [address] [address] EGD 01/03/2025 11:30 AM CDT [facility]ointment [facility] Respiratory Therapy 1 [place] [address] Robert Mae MD #2 [place] [address] Discharge Disposition: Discharged to home or Selfcare 01/28/2025 10:45 AM CDT Office Visit [facility] - Pulmonology & Sleep Medicine - [place] #2 [facility] [place] [address] Robert Mae MD #2 [place] [address] 03/11/2025 10:30 AM CDT [facility] - [place] #2 [facility] [place] [address] Maryann El APRN, DREDGE PUMP OPERATOR #2 [place] [address] Scheduled Procedures Name Priority Associated Diagnoses Date/Ti me EGD ULCER OF THE ESOPHAGUS 12/30/2024 8:00 AM CDT documented as of this encounter Results * SARS-COV-2 BY MOLECULAR (03/14/2022 10:09 AM CDT) SARSCOV2 NOT DETECTED (Referenc e Range for this test is Not Detected) [facility] ID NOW B 03/14/2022 10:51 AM CDT [facility] Comment:This test was perfor med by a MOLECULAR, NON-PCR method Other NASAL STRUCTURE / Unknown Non-Phlebotomy Collection / Unknown 03/14/2022 10:09 AM CDT 03/14/2022 10:22 AM CDT Narrative [facility] - 03/14/2022 10:51 AM CDT This test has been authorized by [...] information for Clinicians can be found at: https://www.fda.gov/media/607774/download Additional information for Patients can be found at: https://www.fda.gov/media/822639/download Manuel Ventura MD MICROBIOLOGY - GENERAL ORDERABLE S Final Result [facility] #1 [place] [address] documented in this encounter Visit Diagnoses Diagnosis Radiculopathy, lumbar region- Primary Thoracic or lumbosacral neuritis or radiculitis, unspecified Encounter for preprocedure screening laboratory testing for COVID-19 documented in this encounter Additional Health Concerns Infection Onset Date Last Indicated Resolved Time COVID - 19 09/03/2024 09/03/2024 09/03/2024 9:25 PM PLUMBING DRAFTER documented as of this encounter Care Teams Data Entry Processor Relationship Specialty Start Date End Date Winifred Armstrong, MAINTENANCE MACHINE REPAIRER, FOOD MOBILE DRIVER [address] [place] [address] PCP - General Advanced Practice Nurse 10/17/19 Micky Dickson MD [address] [place] [address] [place] [address] PCP - General Family Medicine 09/25/23 07/04/24 Silva Vicente MD [address] [place] [address] [place] [address] PCP - General Family Medicine 07/05/24 Mac Sher MD #2 [place] [address] Consulting Physician Neurology 09/15/15 Robert Mae MD #2 [place] [address] Consulting Physician Pulmonary Disease 10/27/22 Maryann El APRN, DREDGE PUMP OPERATOR #2 [place] [address] Nurse Practitioner Advanced Practice Nurse 12/21/22 Germania Navarro APRN, FOOD MOBILE DRIVER #2 [place] [address] Nurse Practitioner Advanced Practice Nurse 10/04/23 Leny Morales MD #2 [place] [address] Consulting Physician Gastroenterology 01/19/23 documented as of this encounter
--- OUTSIDE RECORDS SUMMARY | 2024-12-17 14:02 | XMS_ITS | Encounter Summary ---
Author Organization [facility] Address [address] [place] [address] Phone Care Team Providers Care Stablehand Name Role Phone Mac Sher MD Unavailable [phone] Winifred Armstrong MANAGER TESTING, FISH STRAIGHTENER Primary Care Provider Micky Dickson MD Primary Care Provider Robert Mae MD Unavailable Maryann El APRN, FITTER / WELDER Unavailable + [phone] Germania Navarro APRN, FISH STRAIGHTENER Unavailable Leny Morales MD Unavailable [phone] Silva Vicente MD Primary Care Provider [phone] Reason for Visit * Reason Comments Medication Refill Encounter Details Date Type Department Care Team (Late st Contact Info) Description 03/15/2021 [facility]ill [facility]rology - [place] [address] [place] [address] Mac Sher MD #2 [place] [address] Medication Refill Social History Tobacco [facility] 1 [place] [address] Kwadwo Montalvo MD [address] [address] 12/30/2024 8:00 AM CDT - 12/30/2024 8:30 AM CDT [facility] 1 [place] [address] Kwadwo Montalvo MD [address] [address] EGD 01/03/2025 11:30 AM CDT [facility] 1 [place] [address] Robert Mae MD #2 [place] [address] Discharge Disposition: Discharged to home or Selfcare 01/28/2025 10:45 AM CDT Office Visit [facility] - Pulmonology & Sleep Medicine - [place] #2 [place] [address] Robert Mae MD #2 [place] [address] 03/11/2025 10:30 AM CDT Office Visit [facility] - [facility]rology [facility] #2 [place] [address] Maryann El, MANAGER TESTING, FITTER / WELDER #[address] [place] [address] Scheduled Procedures Name Priority Associated Diagnoses Date/Ti me EGD ULCER OF THE ESOPHAGUS 12/30/2024 8:00 AM CDT documented as of this encounter Visit Diagnoses Not on filedocumented in this encounter Additional Health Concerns Infection Onset Date Last Indicated Resolved Time COVID - 19 06/23/2021 06/23/2021 06/29/2021 9:24 PM CDT COVID - 19 09/03/2024 09/03/2024 09/03/2024 9:25 PM REGIONAL GEODETIC ADVISOR documented as of this encounter Care Teams Stablehand Relationship Specialty Start Date End Date Winifred Armstrong, MANAGER TESTING, FISH STRAIGHTENER [address] [place] [address] PCP - General Advanced Practice Nurse 10/17/19 Micky Dickson MD [address] [place] [address] [address] [place] [address] PCP - General Family Medicine 09/25/23 07/04/24 Silva Vicente MD [address] [place] [address] [address] [place] [address] PCP - General Family Medicine 07/05/24 Mac Sher MD #[address] [place] [address] Consulting Physician Neurology 09/15/15 Robert Mae MD #2 [place] [address] Consulting Physician Pulmonary Disease 10/27/22 Maryann El APRN, FITTER / WELDER #[address] [place] [address] Nurse Practitioner Advanced Practice Nurse 12/21/22 Germania Navarro APRN, FISH STRAIGHTENER #2 [place] [address] Nurse Practitioner Advanced Practice Nurse 10/04/23 Leny Morales MD #2 [place] [address] Consulting Physician Gastroenterology 01/19/23 documented as of this encounter
--- OUTSIDE RECORDS SUMMARY | 2024-12-17 14:02 | XMS_ITS | Encounter Summary ---
Author Organization [facility] Address [address] [place] [address] Phone Care Team Providers Care Trade Sales Assistant Name Role Phone Mac Sher MD Unavailable [phone] Mciky Dickson MD Primary Care Provider Robert Mae MD Unavailable Maryann El APRN, PANELBOARD TANK PUMPER Unavailable + [phone] Germania Navarro APRN, JUNIOR NETWORK ADMINISTRATOR Unavailable Leny Morales MD Unavailable [phone] Silva Vicente MD Primary Care Provider [phone] Reason for Visit * Reason Comments Medication Refill Encounter Details Date Type Department Care Team (Late st Contact Info) Description 11/11/2023 Refill [facility] - Neurology - [place] #[address] [place] [address] Mac Sher MD #2 [place] [address] Medication Refill Social History Tobacco [...] Telephone Encounter - Manisha Chavez RN - 11/13/2023 10:28 AM CST Medication failed the protocol, provider to review and approve the medication order if appropriate. Requested Prescriptions Pending Prescriptions Disp Refills Qulipta 60 MG Tablet [Pharmacy Med Name: Qulipta 60 MG Oral Tablet] 30 Tablet 2 Sig: Take 1 tablet by mouth once daily Not Delegated - Off Protocol Failed - 11/11/2023 6:52 AM Failed - This refill cannot be delegated Passed - Visit with relevant provider in past 12 months or upcoming 90 days Recent Visits Date Type Provider Dept 08/25/23 Procedure Visit Mac Sher MD [facility] [place] [place] [facility] [place] 05/26/23 Procedure Visit Mac Sher MD [facility] [place] [facility] [place] 05/09/23 Telemedicine Mac Sher MD [place] [facility] Stanley Corn[place]io 03/01/23 Procedure Visit Mac Sher MD [facility] [place] [place] Neu[place] [facility] [place] 02/20/23 Office Visit Maryann El APRN, CNS [facility] [place] [place] Neurology [facility] [place] 12/21/22 Office Visit Maryann El APRN, CNS [facility] [place] [place] Neurology [facility] Stanleytess [place] 12/09/22 Procedure Visit Mac Sher MD [facility] [place] [place] Neu[place] [facility] Stanley Cornelio Showing recent visits within past 365 days and meeting all other requirements Future Appointments Date Type Provider Dept 11/16/23 Appointment Mac Sher MD [facility] [place] Neu[place] [facility] Stanley Cornelio 11/24/23 Appointment Mac Sher MD [facility] [place] Neu[place] [facility] Showing future appointments within next 90 days and meeting all other requirements EGE ADVISOR documented in this encounter Plan of Treatment Upcoming Encounters Date Type Department Care Team (Latest Contact Info) Description 12/30/2024 8:00 AM CDT Hospital Encounter [facility] Gi Lab Periop 1 [place] [address] Kwadwo Montalvo MD 2 [facility] [address] [place] [address] 12/30/2024 8:00 AM CDT - 12/30/2024 8:30 AM CDT Surgery [facility] Gi Lab Periop 1 [place] [address] Kwadwo Montalvo MD 2 [facility] [address] [place] [address] EGD 01/03/2025 11:30 AM CDT Appointment [facility] Respiratory Therapy 1 [place] [address] Robert Mae MD #2 [place] [address] Discharge Disposition: Discharged to home or Selfcare 01/28/2025 10:45 AM CDT Office Visit [facility] - Pulmonology & Sleep Medicine - [place] #2 [place] [address] Robert Mae MD #2 [place] [address] 03/11/2025 10:30 AM CDT Office Visit [facility] - Neurology [facility] #[address] [place] [address] Maryann El APRN, PANELBOARD TANK PUMPER #[address] [place] [address] Scheduled Procedures Name Priority Associated Diagnoses Date/Ti [...] - 19 09/03/2024 09/03/2024 09/03/2024 9:25 PM COLLEGE ADVISOR documented as of this encounter Care Teams Trade Sales Assistant Relationship Specialty Start Date End Date Micky Dickson MD [address] [place] [address] DR CASTR[address] [place] [address] PCP - General Family Medicine 09/25/23 07/04/24 Silva Vicente MD [address] [place] [address] [address] CASTR[address] [place] [address] PCP - General Family Medicine 07/05/24 Mac Sher MD #2 [facility] [address] Consulting Physician Neurology 09/15/15 Robert Mae MD #2 [place] [address] Consulting Physician Pulmonary Disease 10/27/22 Maryann El APRN, PANELBOARD TANK PUMPER #[address] [place] [address] Nurse Practitioner Advanced Practice Nurse 12/21/22 Germania Navarro APRN, CIRILO #[address] [place] [address] Nurse Practitioner Advanced Practice Nurse 10/04/23 Leny Morales MD #2 [place] [address] Consulting Physician Gastroenterology 01/19/23 documented as of this encounter
--- OUTSIDE RECORDS SUMMARY | 2024-12-17 14:02 | XMS_ITS | Encounter Summary ---
Author Organization [facility] Address [address] [place] [address] Phone Care Team Providers Care Geological Engineering Teacher Name Role Phone Mac Sher MD Unavailable [phone] Winifred Armstrong POLISHER AND BUFFER, HIGH SCHOOL PROFESSIONAL Primary Care Provider Micky Dickson MD Primary Care Provider Robert Mae MD Unavailable Maryann El APRN, BARREL LINE OPERATOR Unavailable + [phone] Germania Navarro APRN, HIGH SCHOOL PROFESSIONAL Unavailable Leny Morales MD Unavailable [phone] Silva Vicente MD Primary Care Provider [phone] Reason for Visit * Reason Comments Medication Refill Encounter Details Date Type Department Care Team (Late st Contact Info) Description 07/05/2020 Refill [facility]rology - [place] #1 [place] [address] Mac Sher MD #2 [place] [address] Medication Refill Social History Tobacco [...] have Coronavirus / COVID-19? No / Unsure 07/03/2020 9:44 AM CDT documented as of this encounter Plan of Treatment Upcoming Encounters Date Type Department Care Team (Latest Contact Info) Description 12/30/2024 8:00 AM CDT [facility] Per[facility] 1 [place] [address] Kwadwo Montalvo MD [address] [address] 12/30/2024 8:00 AM CDT - 12/30/2024 8:30 AM CDT Surgery [facility] Per[facility] 1 [place] [address] Kwadwo Montalvo MD [address] [address] EGD 01/03/2025 11:30 AM CDT [facility]ointment [facility] Respiratory Therapy 1 [place] [address] Robert Mae MD #2 [place] [address] Discharge Disposition: Discharged to home or Selfcare 01/28/2025 10:45 AM CDT [facility] [place] #2 [place] [address] Robert Mae MD #2 [place] [address] 03/11/2025 10:30 AM CDT [facility] [place] #2 [place] [address] Maryann El APRN, BARREL LINE OPERATOR #2 [place] [address] Scheduled Procedures Name Priority Associated Diagnoses Date/Ti me EGD ULCER OF THE ESOPHAGUS 12/30/2024 8:00 AM CDT documented as of this encounter Visit Diagnoses Not on filedocumented in this encounter Additional Health Concerns Infection Onset Date Last Indicated Resolved Time COVID - 19 06/23/2021 06/23/2021 06/29/2021 9:24 PM CDT COVID - 19 09/03/2024 09/03/2024 09/03/2024 9:25 PM DIVER'S TENDER documented as of this encounter Care Teams Geological Engineering Teacher Relationship Specialty Start Date End Date Winifred Armstrong APRN, HIGH SCHOOL PROFESSIONAL [address] [place] [address] PCP - General Advanced Practice Nurse 10/17/19 Micky Dickson MD [address] [place] [address] [place] [address] PCP - General Family Medicine 09/25/23 07/04/24 Silva Vicente MD [address] [place] [address] [place] [address] PCP - General Family Medicine 07/05/24 Mac Sher MD #2 [place] [address] Consulting Physician Neurology 09/15/15 Robert Mae MD #2 [place] [address] Consulting Physician Pulmonary Disease 10/27/22 Maryann El APRN, BARREL LINE OPERATOR #[address] [place] [address] Nurse Practitioner Advanced Practice Nurse 12/21/22 Germania Navarro APRN, HIGH SCHOOL PROFESSIONAL #[address] [place] [address] Nurse Practitioner Advanced Practice Nurse 10/04/23 Leny Morales MD #2 [place] [address] Consulting Physician Gastroenterology 01/19/23 documented as of this encounter
--- OUTSIDE RECORDS SUMMARY | 2024-12-17 14:02 | XMS_ITS | Encounter Summary ---
Author Organization [facility] Address [address] [place] [address] Phone Care Team Providers Care In Shop Service Technician Name Role Phone Mac Sher MD Unavailable Winifred Armstrong LIFE SKILLS SPECIALIST, QUALITY TECHNICIAN Primary Care Provider Micky Dickson MD Primary Care Provider Robert Mae MD Unavailable Maryann El APRN, DIRECTOR CORPORATE COMPLIANCE Unavailable + [phone] Germania Navarro APRN, QUALITY TECHNICIAN Unavailable Leny Morales MD Unavailable [phone] Silva Vicente MD Primary Care Provider [phone] Reason for Visit * Reason Comments Medication Refill Encounter Details Date Type Department Care Team (Late st Contact Info) Description 09/04/2023 [facility]ill [facility] - Gastroenterology - [place] #2 [place] [phone] Germania Navarro APRN, QUALITY TECHNICIAN #2 [place] [address] Medication Refill Social History Tobacco Use Types [...] suspected to have Coronavirus/COVID-19? No / Unsure 08/24/2023 3:05 PM CDT documented as of this encounter Miscellaneous Notes * Telephone Encounter - Monica Marcelo RN - 09/04/2023 3:02 PM BUDGET TECHNICIAN Per nursing clinical judgement, provider to review and approve the medication(s) order(s) if appropriate. Requested Prescriptions Pending Prescriptions Disp Refills Linzess 145 MCG Capsule [Pharmacy Med Name: Linzess 145 MCG Oral Capsule] 30 Capsule 0 Sig: TAKE 1 CAPSULE BY MOUTH IN THE MORNING BEFORE BREAKFAST IBS-C/CIC Protocol Passed - 09/04/2023 10:37 AM Passed - Visit with relevant provider in past 12 months or upcoming 90 days Recent Visits Date Type Provider Dept 01/19/23 Office Visit Leny Morales MD [facility] Gastro [place] Showing recent visits within past 365 days and meeting all other requirements Future Appointments No visits were found meeting these conditions. Showing future appointments within next 90 days and meeting all other requirements ET TECHNICIAN documented in this encounter Plan of Treatment Upcoming Encounters Date Type Department Care Team (Latest Contact Info) Description 12/30/2024 8:00 AM CDT Hospital Encounter [facility] Gi Lab Periop 1 [place] [address] Kwadwo Montalvo MD [address] [facility] [address] [place] [address] 12/30/2024 8:00 AM CDT - 12/30/2024 8:30 AM CDT Surgery [facility] Gi Lab Periop 1 [place] [address] Kwadwo Montalvo MD 2 [facility] [address] [place] [address] EGD 01/03/2025 11:30 AM CDT [facility] 1 [place] [address] Robert Mae MD #2 [place] [address] Discharge Disposition: Discharged to home or Selfcare 01/28/2025 10:45 AM CDT Office Visit [facility] - Pulmonology & Sleep Medicine - [place] #2 [place] [address] Robert Mae MD #2 [place] [address] 03/11/2025 10:30 AM CDT Office Visit [facility] - Neurology - [place] #2 [place] [address] Maryann El APRN, DIRECTOR CORPORATE COMPLIANCE #2 [place] [address] Scheduled Procedures Name Priority Associated Diagnoses Date/Ti me EGD ULCER OF THE ESOPHAGUS 12/30/2024 8:00 AM CDT documented as of this encounter Visit Diagnoses Not on filedocumented in this encounter Additional Health Concerns Infection Onset Date Last Indicated Resolved Time COVID - 19 09/03/2024 09/03/2024 09/03/2024 9:25 PM BUDGET TECHNICIAN documented as of this encounter Care Teams In Shop Service Technician Relationship Specialty Start Date End Date Winifred Armstrong APRN, QUALITY TECHNICIAN [address] [place] [address] PCP - General Advanced Practice Nurse 10/17/19 Micky Dickson MD [address] [facility] [address] CASTRO [address] [place], [place] [address], [place] [address] PCP - General Family Medicine 09/25/23 07/04/24 Silva Vicente MD [address] [facility] [address] CASTRO [address] [place] [address] PCP - General Family Medicine 07/05/24 Mac Sher MD #2 [place] [address] Consulting Physician Neurology 09/15/15 Robert Mae MD #2 [place] [address] Consulting Physician Pulmonary Disease 10/27/22 Maryann El APRN, DIRECTOR CORPORATE COMPLIANCE #2 [place] [address] Nurse Practitioner Advanced Practice Nurse 12/21/22 Germania Navarro APRN, QUALITY TECHNICIAN #2 [place] [address] Nurse Practitioner Advanced Practice Nurse 10/04/23 Leny Morales MD #2 [place] [address] Consulting Physician Gastroenterology 01/19/23 documented as of this encounter
--- OUTSIDE RECORDS SUMMARY | 2024-12-17 14:02 | XMS_ITS | Encounter Summary ---
Author Organization [facility] Address [address] [place] [address] Phone Care Team Providers Care Pro Shop Attendant Name Role Phone Mac Sher MD Unavailable [phone] Winifred Armstrong THERAPEUTIC ASSISTANT, HAND POTTER Primary Care Provider Micky Dickson MD Primary Care Provider Robert Mae MD Unavailable Maryann El APRN, SALES AND EVENTS COORDINATOR Unavailable + [phone] Germania Navarro APRN, HAND POTTER Unavailable Leny Morales MD Unavailable [phone] Silva Vicente MD Primary Care Provider [phone] Reason for Visit * Reason Comments Medication Refill Encounter Details Date Type Department Care Team (Late st Contact Info) Description 06/21/2021 Refill [facility] - Neurology - [place] #2 [place] [phone] Maryann El, CESAR, SALES AND EVENTS COORDINATOR [address] [place] [address] Medication Refill Social History Tobacco Use Types [...] have Coronavirus / COVID-19? No / Unsure 06/18/2021 9:19 AM CDT documented as of this encounter Plan of Treatment Upcoming Encounters Date Type Department Care Team (Latest Contact Info) Description 12/30/2024 8:00 AM CDT [facility] 1 [place] [address] Kwadwo Montalvo MD [address] [address] 12/30/2024 8:00 AM CDT - 12/30/2024 8:30 AM CDT [facility] 1 [place] [address] Kwadwo Montalvo MD [address] [address] EGD 01/03/2025 11:30 AM CDT [facility]ment [facility] Res[facility] 1 [place] [address] Robert Mae MD #2 [place] [address] Discharge Disposition: Discharged to home or Selfcare 01/28/2025 10:45 AM CDT Office Visit [facility] - Pulmonology & Sleep Medicine - [place] #[address] [place] [address] Robert Mae MD #2 [place] [address] 03/11/2025 10:30 AM CDT [facility] - [place] #2 [place] [address] Maryann El APRN, SALES AND EVENTS COORDINATOR #2 [place] [address] Scheduled Procedures Name Priority Associated Diagnoses Date/Ti [...] - 19 09/03/2024 09/03/2024 09/03/2024 9:25 PM GASTROENTEROLOGY TECHNICIAN documented as of this encounter Care Teams Pro Shop Attendant Relationship Specialty Start Date End Date Winifred Armstrong, THERAPEUTIC ASSISTANT, HAND POTTER [address] [place] [address] PCP - General Advanced Practice Nurse 10/17/19 Micky Dickson MD [address] [place] [address] DR CASTRO [address] [place] [address] PCP - General Family Medicine 09/25/23 07/04/24 Silva Vicente MD [address] [place] [address] [facility] [place] [address] PCP - General Family Medicine 07/05/24 Mac Sher MD #2 [place] [address] Consulting Physician Neurology 09/15/15 Robert Mae MD #[address] [place] [address] Consulting Physician Pulmonary Disease 10/27/22 Maryann El APRN, SALES AND EVENTS COORDINATOR #2 [place] [address] Nurse Practitioner Advanced Practice Nurse 12/21/22 Germania Navarro APRN, HAND POTTER #2 [place] [address] Nurse Practitioner Advanced Practice Nurse 10/04/23 Leny Morales MD #2 [place] [address] Consulting Physician Gastroenterology 01/19/23 documented as of this encounter
--- OUTSIDE RECORDS SUMMARY | 2024-12-17 14:02 | XMS_ITS | Encounter Summary ---
Author Organization [facility] Address [address] [place] [address] Phone Care Team Providers Care Tool Room Supervisor Name Role Phone Mac Sher MD Unavailable Micky Dickson MD Primary Care Provider Robert Mae MD Unavailable Maryann El APRN, REGIONAL LIAISON Unavailable Germania Navarro APRN, LENS HARDENER Unavailable Leny Morales MD Unavailable [phone] Silva Vicente MD Primary Care Provider [phone] Reason for Visit * Reason Comments Medication Refill Encounter Details Date Type Department Care Team (Late st Contact Info) Description 12/13/2023 Refill [facility] - Neurology - [place] #2 [place] [phone] Maryann El APRN, REGIONAL LIAISON [address] [place] [address] Medication Refill Social History Tobacco Use Types [...] Telephone Encounter - Manisha Chavez RN - 12/13/2023 8:12 AM CST Medication failed the protocol, provider to review and approve the medication order if appropriate. Requested Prescriptions Pending Prescriptions Disp Refills primidone (MYSOLINE) 250 MG Tablet [Pharmacy Med Name: Primidone 250 MG Oral Tablet] 30 Tablet 3 Sig: Take 1 tablet by mouth nightly Not Delegated - Anticonvulsants Excluding Benzodiazepines Protocol Failed - 12/13/2023 7:33 AM Failed - This refill cannot be delegated Passed - Visit with relevant provider in past 12 months or upcoming 90 days Recent Visits Date Type Provider Dept 11/16/23 Office Visit Mac [facility] [place] [facility] [place] 08/25/23 Procedure Visit Mac Sher MD [facility] [place] 05/26/23 Procedure Visit Mac Sher MD [facility] [place] 05/09/23 Telemedicine Mac Sher MD [facility] [place] 03/01/23 Procedure Visit Mac Sher MD [facility] [place] 02/20/23 Office Visit Maryann El APRN, CNS [facility] [place] 12/21/22 Office Visit Maryann El APRN, CNS [facility] [place] Showing recent visits within past 365 days and meeting all other requirements Future Appointments Date Type Provider Dept 12/15/23 Appointment Mac Sher MD [facility] 02/23/24 Appointment Maryann El APRN, REGIONAL LIAISON [facility] Showing future appointments within next 90 days and meeting all other requirements UTER PATTERNMAKER documented in this encounter Plan of Treatment Upcoming Encounters Date Type Department Care Team (Latest Contact Info) Description 12/30/2024 8:00 AM CDT [facility] 1 [facility] [address] Kwadwo Montalvo MD 2 [facility] [address] [place] [address] 12/30/2024 8:00 AM CDT - 12/30/2024 8:30 AM CDT Surgery [facility] Gi Lab Periop 1 [facility] [place] [address] Kwadwo Montalvo MD [address] [facility] [address] [place] [address] EGD 01/03/2025 11:30 AM CDT Appointment [facility] Respiratory Therapy 1 [place] [address] Robert Mae MD #2 [place] [address] Discharge Disposition: Discharged to home or Selfcare 01/28/2025 10:45 AM CDT Office Visit [facility] - Pulmonology & Sleep Medicine - [place] #2 [place] [address] Robert Mae MD #2 [place] [address] 03/11/2025 10:30 AM CDT Office Visit [facility] - Neurology - [place] #2 [place] [address] Maryann El APRN, REGIONAL LIAISON [address] [place] [address] Scheduled Procedures Name Priority Associated Diagnoses Date/Ti me EGD ULCER OF THE ESOPHAGUS 12/30/2024 8:00 AM CDT documented as of this encounter Visit Diagnoses Diagnosis Essential tremor Essential and other specified forms of tremor documented in this encounter Additional Health Concerns Infection Onset Date Last Indicated Resolved Time COVID - 19 09/03/2024 09/03/2024 09/03/2024 9:25 PM COMPUTER PATTERNMAKER documented as of this encounter Care Teams Tool Room Supervisor Relationship Specialty Start Date End Date Micky Dickson MD [address] [facility] [address] CASTRO [address] [place] [address] PCP - General Family Medicine 09/25/23 07/04/24 Silva Vicente MD [address] [facility] [address] CASTR[address] [place] [address] PCP - General Family Medicine 07/05/24 Mac Sher MD #2 [place] [address] Consulting Physician Neurology 09/15/15 Robert Mae MD #2 [place] [address] Consulting Physician Pulmonary Disease 10/27/22 Maryann El APRN, REGIONAL LIAISON #2 [place] [address] Nurse Practitioner Advanced Practice Nurse 12/21/22 Germania Navarro APRN, LENS HARDENER #2 [place] [address] Nurse Practitioner Advanced Practice Nurse 10/04/23 Leny Morales MD #2 [place] [address] Consulting Physician Gastroenterology 01/19/23 documented as of this encounter
--- OUTSIDE RECORDS SUMMARY | 2024-12-17 14:02 | XMS_ITS | Encounter Summary ---
Author Organization [facility] Address [address] [place] [address] Phone Care Team Providers Care Candy Roller Name Role Phone Mac Sher MD Unavailable [phone] Winifrde Armstrong AIR TRAFFIC COORDINATOR, CUSTOMER MARKETING INTERN Primary Care Provider Micky Dickson MD Primary Care Provider Robert Mae MD Unavailable Maryann El APRN, BOOKBINDER APPRENTICE Unavailable + [phone] Germania Navarro APRN, CUSTOMER MARKETING INTERN Unavailable Leny Morales MD Unavailable [phone] Silva Vicente MD Primary Care Provider [phone] Reason for Visit * Reason Comments Medication Refill Encounter Details Date Type Department Care Team (Late st Contact Info) Description 03/07/2023 Refill [facility] - Gastroenterology - [place] #2 [place] [address] Germania Navarro APRN, CUSTOMER MARKETING INTERN #2 [place] [address] Medication Refill Social History Tobacco Use Types [...] Telephone Encounter - Monica Marcelo RN - 03/07/2023 9:16 AM CDT Medication [facility] and signed [facility] standing order for pediatric and adult patients. documented in this encounter Plan of Treatment Upcoming Encounters Date Type Department Care Team (Latest Contact Info) Description 12/30/2024 8:00 AM CDT Hospital Encounter [facility] Gi Lab Periop 1 [place] [address] Kwadwo Montalvo MD 2 [facility] [address] [address] 12/30/2024 8:00 AM CDT - 12/30/2024 8:30 AM CDT [facility] 1 [place] [address] Kwadwo Montalvo MD 2 [facility] [address] [address] EGD 01/03/2025 11:30 AM CDT [facility]ment [facility] Res[facility] 1 [place] [address] Robert Mae MD #2 [place] [address] Discharge Disposition: Discharged to home or Selfcare 01/28/2025 10:45 AM CDT Office Visit [facility] - Pulmonology & Sleep Medicine [facility] #2 [place] [address] Robert Mae MD #2 [place] [address] 03/11/2025 10:30 AM CDT [facility] - [place] #2 [place] [address] Maryann El APRN, BOOKBINDER APPRENTICE #2 [place] [address] Scheduled Procedures Name Priority Associated Diagnoses Date/Ti me EGD ULCER OF THE ESOPHAGUS 12/30/2024 8:00 AM CDT documented as of this encounter Visit Diagnoses Not on filedocumented in this encounter Additional Health Concerns Infection Onset Date Last Indicated Resolved Time COVID - 19 09/03/2024 09/03/2024 09/03/2024 9:25 PM SENIOR J2EE DEVELOPER documented as of this encounter Care Teams Candy Roller Relationship Specialty Start Date End Date Winifred Armstrong APRN, CUSTOMER MARKETING INTERN [address] [place] [address] PCP - General Advanced Practice Nurse 10/17/19 Micky Dicksno MD [address] [place] [address] [facility] [place] [address] PCP - General Family Medicine 09/25/23 07/04/24 Silva Vicente MD [address] [place] [address] [address] PCP - General Family Medicine 07/05/24 Mac Sher MD #2 [place] [address] Consulting Physician Neurology 09/15/15 Robert Mae MD #2 [place] [address] Consulting Physician Pulmonary Disease 10/27/22 Maryann El APRN, BOOKBINDER APPRENTICE #2 [place] [address] Nurse Practitioner Advanced Practice Nurse 12/21/22 Germania Navarro APRN, CUSTOMER MARKETING INTERN #[address] [place] [address] Nurse Practitioner Advanced Practice Nurse 10/04/23 Leny Morales MD #2 [place] [address] Consulting Physician Gastroenterology 01/19/23 documented as of this encounter
--- OUTSIDE RECORDS SUMMARY | 2024-12-17 14:02 | XMS_ITS | Encounter Summary ---
Author Organization [facility] Address [address] [place] [address] Phone Care Team Providers Care Chief Information Security Officer Name Role Phone Mac Sher MD Unavailable [phone] Winifred Armstrong ETHNOARCHAEOLOGIST, COMMUNITY DEVELOPMENT MANAGER Primary Care Provider Micky Dickson MD Primary Care Provider Robert Mae MD Unavailable Maryann El APRN, FOLDED TOWEL MACHINE OPERATOR Unavailable + [phone] Germania Navarro APRN, COMMUNITY DEVELOPMENT MANAGER Unavailable Leny Morales MD Unavailable [phone] Silva Vicente MD Primary Care Provider [phone] Reason for Visit * Reason Comments Medication Refill Encounter Details Date Type Department Care Team (Late st Contact Info) Description 12/07/2022 Refill [facility] - [facility] #2 [place] [address] Mac Sher MD #2 [place] [address] Medication Refill Social History Tobacco [...] suspected to have Coronavirus/COVID-19? No / Unsure 12/09/2022 1:46 PM TRAFFIC LAW ATTORNEY documented as of this encounter Plan of Treatment Upcoming Encounters Date Type Department Care Team (Latest Contact Info) Description 12/30/2024 8:00 AM CDT [facility] 1 [place] [address] Kwadwo Montalvo MD [address] [address] 12/30/2024 8:00 AM CDT - 12/30/2024 8:30 AM CDT [facility] 1 [place] [address] Kwadwo Montalvo MD [address] [address] EGD 01/03/2025 11:30 AM CDT [facility] 1 [place] [address] Robert Mae MD #2 [place] [address] Discharge Disposition: Discharged to home or Selfcare 01/28/2025 10:45 AM CDT [facility] - Pulmonology & [facility] Medicine - [place] #2 [place] [address] Robert Mae MD #2 [place] [address] 03/11/2025 10:30 AM CDT Office [facility] - Neurology - [place] #2 [place] [address] Maryann El ETHNOARCHAEOLOGIST, FOLDED TOWEL MACHINE OPERATOR #[address] [place] [address] Scheduled Procedures Name Priority Associated Diagnoses Date/Ti me EGD ULCER OF THE ESOPHAGUS 12/30/2024 8:00 AM CDT documented as of this encounter Visit Diagnoses Not on filedocumented in this encounter Additional Health Concerns Infection Onset Date Last Indicated Resolved Time COVID - 19 09/03/2024 09/03/2024 09/03/2024 9:25 PM TRAFFIC LAW ATTORNEY documented as of this encounter Care Teams Chief Information Security Officer Relationship Specialty Start Date End Date Winifred Armstrong APRN, COMMUNITY DEVELOPMENT MANAGER [address] [place] [address] PCP - General Advanced Practice Nurse 10/17/19 Micky Dickson MD [address] [place] [address] [place] [address] PCP - General Family Medicine 09/25/23 07/04/24 Silva Vicente MD [address] [place] [address] [place] [address] PCP - General Family Medicine 07/05/24 Mac Sher MD #2 [place] [address] Consulting Physician Neurology 09/15/15 Robert Mae MD #2 [place] [address] Consulting Physician Pulmonary Disease 10/27/22 Maryann El APRN, FOLDED TOWEL MACHINE OPERATOR #[address] [place] [address] Nurse Practitioner Advanced Practice Nurse 12/21/22 Germania Navarro APRN, COMMUNITY DEVELOPMENT MANAGER #2 [place] [address] Nurse Practitioner Advanced Practice Nurse 10/04/23 Leny Morales MD #2 [place] [address] Consulting Physician Gastroenterology 01/19/23 documented as of this encounter
--- OUTSIDE RECORDS SUMMARY | 2024-12-17 14:02 | XMS_ITS | Encounter Summary ---
Author Organization [facility] Address [address] [place] [address] Phone Care Team Providers Care Fine Arts Chair Name Role Phone Mac Sher MD Unavailable [phone] Winifred Armstrong MASTER NAVAL PARACHUTIST, CUSTOMER SERVICE ATTENDANT Primary Care Provider Micky Dickson MD Primary Care Provider Robert Mae MD Unavailable Maryann El APRN, RN EMERGENCY Unavailable + [phone] Germania Navarro APRN, CUSTOMER SERVICE ATTENDANT Unavailable Leny Morales MD Unavailable [phone] Silva Vicente MD Primary Care Provider [phone] Reason for Visit * Reason Comments Medication Refill Encounter Details Date Type Department Care Team (Late st Contact Info) Description 06/07/2022 Refill [facility] - Neurology - [place] [address]2 [place] [address] Mac Sher MD #2 [place] [address] Medication Refill Social History Tobacco [...] suspected to have Coronavirus/COVID-19? No / Unsure 06/10/2022 9:50 AM CDT documented as of this encounter Plan of Treatment Upcoming Encounters Date Type Department Care Team (Latest Contact Info) Description 12/30/2024 8:00 AM CDT [facility] 1 [place] [address] Kwadwo Montalvo MD [address] [address] 12/30/2024 8:00 AM CDT - 12/30/2024 8:30 AM CDT [facility] 1 [place] [address] Kwadwo Montalvo MD [address] [address] EGD 01/03/2025 11:30 AM CDT [facility] Res[facility] 1 [place] [address] Robert Mae MD #2 [place] [address] Discharge Disposition: Discharged to home or Selfcare 01/28/2025 10:45 AM CDT Office Visit [facility] - Pulmonology & Sleep Medicine - [place] #2 [place] [address] Robert Mae MD #2 [place] [address] 03/11/2025 10:30 AM CDT [facility] - [place] #2 [place] [address] Maryann El, MASTER NAVAL PARACHUTIST, RN EMERGENCY #2 [place] [address] Scheduled Procedures Name Priority Associated Diagnoses Date/Ti me EGD ULCER OF THE ESOPHAGUS 12/30/2024 8:00 AM CDT documented as of this encounter Visit Diagnoses Not on filedocumented in this encounter Additional Health Concerns Infection Onset Date Last Indicated Resolved Time COVID - 19 09/03/2024 09/03/2024 09/03/2024 9:25 PM FLOOR POLISHER documented as of this encounter Care Teams Fine Arts Chair Relationship Specialty Start Date End Date Winifred Armstrong, MASTER NAVAL PARACHUTIST, CUSTOMER SERVICE ATTENDANT [address] [place] [address] PCP - General Advanced Practice Nurse 10/17/19 Micky Dickson MD [address] [place] [address] [place] [address] PCP - General Family Medicine 09/25/23 07/04/24 Silva Vicente MD [address] [place] [address] [place] [address] PCP - General Family Medicine 07/05/24 Mac Sher MD #2 [place] [address] Consulting Physician Neurology 09/15/15 Robert Mae MD #2 [place] [address] Consulting Physician Pulmonary Disease 10/27/22 Maryann El, MASTER NAVAL PARACHUTIST, RN EMERGENCY #2 [place] [address] Nurse Practitioner Advanced Practice Nurse 12/21/22 Germania Navarro APRN, CUSTOMER SERVICE ATTENDANT #2 [place] [address] Nurse Practitioner Advanced Practice Nurse 10/04/23 Leny Morales MD #2 [place] [address] Consulting Physician Gastroenterology 01/19/23 documented as of this encounter
--- OUTSIDE RECORDS SUMMARY | 2024-12-17 14:02 | XMS_ITS | Encounter Summary ---
Author Organization [facility] Address [address] [place] [address] Phone Care Team Providers Care Fiberglass Technician Name Role Phone Mac Sher MD Unavailable [phone] Winifred Armstrong TANK CHARGER, PATIENT SCHEDULER Primary Care Provider Micky Dickson MD Primary Care Provider [phone] Robert Mae MD Unavailable Maryann El APRN, MANAGER OUTREACH Unavailable + [phone] Germania Navarro APRN, PATIENT SCHEDULER Unavailable Leny Morales MD Unavailable [phone] Silva Vicente MD Primary Care Provider [phone] Reason for Visit * Reason Comments Medication Refill Encounter Details Date Type Department Care Team (Late st Contact Info) Description 05/19/2023 [facility]ill [facility] - Gastroenterology - [place] #2 [place] [address] Leny Morales MD #2 [place] [address] Medication Refill Social History Tobacco Use Types [...] suspected to have Coronavirus/COVID-19? No / Unsure 05/09/2023 2:03 PM CDT documented as of this encounter Miscellaneous Notes * Telephone Encounter - Monica Marcelo RN - 05/19/2023 3:24 PM CDT Medication refilled and signed [facility] standing order for pediatric and adult patients. documented in this encounter Plan of Treatment Upcoming Encounters Date Type Department Care Team (Latest Contact Info) Description 12/30/2024 8:00 AM CDT Hospital Encounter [facility] Gi Lab Periop 1 [place] [address] Kwadwo Montalvo MD 2 [facility] [address] [address] 12/30/2024 8:00 AM CDT - 12/30/2024 8:30 AM CDT [facility] 1 [place] [address] Kwadwo Montalvo MD 2 [facility] [address] [address] EGD 01/03/2025 11:30 AM CDT [facility] 1 [place] [address] Robert Mae MD #2 [place] [address] Discharge Disposition: Discharged to home or Selfcare 01/28/2025 10:45 AM CDT Office Visit [facility] - Pulmonology & Sleep Medicine [facility] #2 [place] [address] Robert Mae MD #2 [place] [address] 03/11/2025 10:30 AM CDT Office Visit [facility] - Neurology - [place] #2 [place] [address] Maryann El, TANK CHARGER, MANAGER OUTREACH [address] [place] [address] Scheduled Procedures Name Priority Associated Diagnoses Date/Ti me EGD ULCER OF THE ESOPHAGUS 12/30/2024 8:00 AM CDT documented as of this encounter Visit Diagnoses Not on filedocumented in this encounter Additional Health Concerns Infection Onset Date Last Indicated Resolved Time COVID - 19 09/03/2024 09/03/2024 09/03/2024 9:25 PM BARREL RAISER documented as of this encounter Care Teams Fiberglass Technician Relationship Specialty Start Date End Date Winifred Armstrong APRN, PATIENT SCHEDULER [address] [place], [place] [id number] PCP - General Advanced Practice Nurse 10/17/19 Micky Dickson MD [address] [place] [address] [place] [address] PCP - General Family Medicine 09/25/23 07/04/24 Silva Vicente MD [address] [place] [address] [address] PCP - General Family Medicine 07/05/24 Mac Sher MD #2 [place] [address] Consulting Physician Neurology 09/15/15 Robert Mae MD #2 [place] [address] Consulting Physician Pulmonary Disease 10/27/22 Maryann El APRN, MANAGER OUTREACH [address] [place] [address] Nurse Practitioner Advanced Practice Nurse 12/21/22 Germania Navarro APRN, PATIENT SCHEDULER #2 [place] [address] Nurse Practitioner Advanced Practice Nurse 10/04/23 Leny Morales MD #2 [place] [address] Consulting Physician Gastroenterology 01/19/23 documented as of this encounter
--- OUTSIDE RECORDS SUMMARY | 2024-12-17 14:02 | XMS_ITS | Encounter Summary ---
Author Organization [facility] Address [address] [place] [address] Phone Care Team Providers Care Director Perioperative Name Role Phone Mac Sher MD Unavailable [phone] Micky Dickson MD Primary Care Provider Robert Mae MD Unavailable Maryann El APRN, CAGE MAKER Unavailable Germania Navarro APRN, RESIDENTIAL AIDE Unavailable Leny Morales MD Unavailable [phone] Silva Vicente MD Primary Care Provider [phone] Reason for Visit * Reason Comments Medication Refill Encounter Details Date Type Department Care Team (Late st Contact Info) Description 11/11/2023 Refill [facility] - Neurology - [place] #2 [place] [address] Maryann El APRN, CAGE MAKER [address]2 [place] [address] Medication Refill Social History Tobacco Use Types [...] Encounter - Manisha Chavez RN - 11/13/2023 10:29 AM CST Medication failed the protocol, provider to review and approve the medication order if appropriate. Requested Prescriptions Pending Prescriptions Disp Refills Topiramate 50 MG Tablet [Pharmacy Med Name: Topiramate 50 MG Oral Tablet] 60 Tablet 2 Sig: Take 1 tablet by mouth twice daily Not Delegated - Anticonvulsants Excluding Benzodiazepines Protocol Failed - 11/11/2023 6:52 AM Failed - This refill cannot be delegated Passed - Visit with relevant provider in past 12 months or upcoming 90 days Recent Visits Date Type Provider Dept 08/25/23 Procedure Visit Mac Sher MD [facility] Neu[facility] [place] 05/26/23 Procedure Visit Mac Sher MD [facility] Neu[facility] Stan[place] 05/09/23 Telemedicine Mac Sher MD [facility] Neu[facility] Stan[place]ess [place] 03/01/23 Procedure Visit Mac Sher MD [facility] Neu[facility] Bang [place] 02/20/23 Office Visit Maryann El APRN, CNS [facility] Neu[facility] [place] [facility] [place] 12/21/22 Office Visit Maryann El APRN, CNS [facility] [place] 12/09/22 Procedure Visit Mac Sher MD [facility] Neu[facility] [place] Showing recent visits within past 365 days and meeting all other requirements Future Appointments Date Type Provider Dept 11/16/23 Appointment Mac Sher MD [facility] Neu[facility] [place] 11/24/23 Appointment Mac Sher MD [facility] Neu[facility] Showing future appointments within next 90 days and meeting all other requirements TECHNOLOGIST documented in this encounter Plan of Treatment Upcoming Encounters Date Type Department Care Team (Latest Contact Info) Description 12/30/2024 8:00 AM CDT [facility] 1 [place] [address] Kwadwo Montalvo MD 2 [facility] [address] [place] [address] 12/30/2024 8:00 AM CDT - 12/30/2024 8:30 AM CDT Surgery [facility] Gi Lab Periop 1 [place] [address] Kwadwo Montalvo MD 2 [facility] [address] [place] [address] EGD 01/03/2025 11:30 AM CDT Appointment [facility] Respiratory Therapy 1 [place] [address] Robert Mae MD #2 [place] [address] Discharge Disposition: Discharged to home or Selfcare 01/28/2025 10:45 AM CDT Office Visit [facility] - Pulmonology & Sleep Medicine - [place] [address] [place] [address] Robert Mae MD #2 [place] [address] 03/11/2025 10:30 AM CDT [facility] - Neurology - [place] [address] [place] [address] Maryann El APRN, CAGE MAKER #2 [place] [address] Scheduled Procedures Name Priority Associated Diagnoses Date/Ti me EGD ULCER OF THE ESOPHAGUS 12/30/2024 8:00 AM CDT documented as of this encounter Visit Diagnoses Not on filedocumented in this encounter Additional Health Concerns Infection Onset Date Last Indicated Resolved Time COVID - 19 09/03/2024 09/03/2024 09/03/2024 9:25 PM CYTOTECHNOLOGIST documented as of this encounter Care Teams Director Perioperative Relationship Specialty Start Date End Date Micky Dickson MD [address] [facility] [address] [place] [address] PCP - General Family Medicine 09/25/23 07/04/24 Silva Vicente MD [address] [facility] [address] [place] [address] PCP - General Family Medicine 07/05/24 Mac Sher MD #2 [place] [address] Consulting Physician Neurology 09/15/15 Robert Mae MD #2 [place] [address] Consulting Physician Pulmonary Disease 10/27/22 Maryann El APRN, CAGE MAKER #2 [place] [address] Nurse Practitioner Advanced Practice Nurse 12/21/22 Germania Navarro APRN, RESIDENTIAL AIDE #2 [place] [address] Nurse Practitioner Advanced Practice Nurse 10/04/23 Leny Morales MD #2 [place] [address] Consulting Physician Gastroenterology 01/19/23 documented as of this encounter
--- OUTSIDE RECORDS SUMMARY | 2024-12-17 14:02 | XMS_ITS | Encounter Summary ---
Author Organization [facility] Address [address] [place] [address] Phone Care Team Providers Care Machine Spring Former Name Role Phone Mac Sher MD Unavailable [phone] Winifred Armstrong SLINGER SEQUINS, LICENSED CUSTOMS BROKER Primary Care Provider Micky Dickson MD Primary Care Provider [phone] Robert Mae MD Unavailable Maryann El APRN, SENIOR SSIS DEVELOPER Unavailable + [phone] Germania Navarro APRN, LICENSED CUSTOMS BROKER Unavailable Leny Morales MD Unavailable [phone] Silva Vicente MD Primary Care Provider [phone] Reason for Visit * Reason Comments Medication Refill Encounter Details Date Type Department Care Team (Late st Contact Info) Description 02/14/2022 Refill [facility] - Neurology - [place] #2 [place] [address] Mac Sher MD #2 [place] [address] Medication Refill Social History Tobacco [...] [facility] 1 [place] [address] Kwadwo Montalvo MD [address] [address] 12/30/2024 8:00 AM CDT - 12/30/2024 8:30 AM CDT [facility] 1 [place] [address] Kwadwo Montalvo MD [address] [address] EGD 01/03/2025 11:30 AM CDT [facility] Res[facility] 1 [place] [address] Robert Mae MD #2 [place] [address] Discharge Disposition: Discharged to home or Selfcare 01/28/2025 10:45 AM CDT Office Visit [facility] - Pulmonology & Sleep Medicine - [place] #[address] [place] [address] Robert Mae MD #2 [place] [address] 03/11/2025 10:30 AM CDT [facility] - [place] #2 [place] [address] Maryann El, SLINGER SEQUINS, SENIOR SSIS DEVELOPER #2 [place] [address] Scheduled Procedures Name Priority Associated Diagnoses Date/Ti me EGD ULCER OF THE ESOPHAGUS 12/30/2024 8:00 AM CDT documented as of this encounter Visit Diagnoses Not on filedocumented in this encounter Additional Health Concerns Infection Onset Date Last Indicated Resolved Time COVID - 19 09/03/2024 09/03/2024 09/03/2024 9:25 PM SUPERVISOR EXTRUDING DEPARTMENT documented as of this encounter Care Teams Machine Spring Former Relationship Specialty Start Date End Date Winifred Armstrong, SLINGER SEQUINS, LICENSED CUSTOMS BROKER [address] [place] [address] PCP - General Advanced Practice Nurse 10/17/19 Micky Dickson MD [address] [facility] [address] [place] [address] PCP - General Family Medicine 09/25/23 07/04/24 Silva Vicente MD [address] [facility] [address] [place] [address] PCP - General Family Medicine 07/05/24 Mac Sher MD #2 [place] [address] Consulting Physician Neurology 09/15/15 Robert Mae MD #2 [place] [address] Consulting Physician Pulmonary Disease 10/27/22 Maryann El APRN, SENIOR SSIS DEVELOPER #2 [place] [address] Nurse Practitioner Advanced Practice Nurse 12/21/22 Germania Navarro APRN, LICENSED CUSTOMS BROKER #2 [place] [address] Nurse Practitioner Advanced Practice Nurse 10/04/23 Leny Morales MD #2 [place] [address] Consulting Physician Gastroenterology 01/19/23 documented as of this encounter
--- OUTSIDE RECORDS SUMMARY | 2024-12-17 14:02 | XMS_ITS | Encounter Summary ---
Author Organization [facility] Address [address] [place] [address] Phone Care Team Providers Care Supervisor Nurse Name Role Phone Mac Sher MD Unavailable [phone] Micky Dickson MD Primary Care Provider Robert Mae MD Unavailable Maryann El APRN, STONEWORK SUPERVISOR Unavailable + [phone] Germania Navarro APRN, BRAZER ASSEMBLER Unavailable Leny Moarles MD Unavailable [phone] Silva Vicente MD Primary Care Provider [phone] Reason for Visit * Reason Comments Medication Refill Encounter Details Date Type Department Care Team (Late st Contact Info) Description 12/14/2023 Refill [facility] Gastro[facility]ology - [place] #2 [place] [address] Germania Navarro APRN, BRAZER ASSEMBLER #[address] [place] [address] Medication Refill Social History Tobacco Use Types [...] Telephone Encounter - Monica Marcelo RN - 12/15/2023 10:37 AM CASTING ASSOCIATE Medication [facility] for pediatric and adult patients. ING ASSOCIATE documented in this encounter Plan of Treatment Upcoming Encounters Date Type Department Care Team (Latest Contact Info) Description 12/30/2024 8:00 AM CDT [facility] 1 [place] [address] Kwadwo Montalvo MD [address] [address] 12/30/2024 8:00 AM CDT - 12/30/2024 8:30 AM CDT [facility] 1 [place] [address] Kwadwo Montalvo MD [address] [address] EGD 01/03/2025 11:30 AM CDT [facility] 1 [place] [address] Robert Mae MD #2 [place] [address] Discharge Disposition: Discharged to home or Selfcare 01/28/2025 10:45 AM CDT Office Visit [facility] - Pulmonology & Sleep Medicine - [place] #2 [place] [address] Robert Mae MD #2 [place] [address] 03/11/2025 10:30 AM CDT [facility] - [place] #2 [place] [address] Maryann El, DATA COLLECTION INTERVIEWER, STONEWORK SUPERVISOR #2 [place] [address] Scheduled Procedures Name Priority Associated Diagnoses Date/Ti me EGD ULCER OF THE ESOPHAGUS 12/30/2024 8:00 AM CDT documented as of this encounter Visit Diagnoses Not on filedocumented in this encounter Additional Health Concerns Infection Onset Date Last Indicated Resolved Time COVID - 19 09/03/2024 09/03/2024 09/03/2024 9:25 PM CASTING ASSOCIATE documented as of this encounter Care Teams Supervisor Nurse Relationship Specialty Start Date End Date Micky Dickson MD [address] [place] [address] [address] [place] [address] PCP - General Family Medicine 09/25/23 07/04/24 Silva Vicente MD [address] [place] [address] [address] [place] [address] PCP - General Family Medicine 07/05/24 Mac Sher MD #2 [place] [address] Consulting Physician Neurology 09/15/15 Robert Mae MD #2 [place] [address] Consulting Physician Pulmonary Disease 10/27/22 Maryann El APRN, STONEWORK SUPERVISOR #2 [place] [address] Nurse Practitioner Advanced Practice Nurse 12/21/22 Germania Navarro APRN, BRAZER ASSEMBLER #[address] [place] [address] Nurse Practitioner Advanced Practice Nurse 10/04/23 Leny Morales MD #2 [place] [address] Consulting Physician Gastroenterology 01/19/23 documented as of this encounter
--- OUTSIDE RECORDS SUMMARY | 2024-12-17 14:02 | XMS_ITS | Encounter Summary ---
Author Organization [facility] Address [address] [place] [address] Phone Care Team Providers Care Oracle E Business Developer Name Role Phone Mac Sher MD Unavailable [phone] Winifred Armstrong CEO & FOUNDER, TELECOM NETWORK MANAGER Primary Care Provider Micky Dickson MD Primary Care Provider Robert Mae MD Unavailable Maryann El APRN, PROFESSOR OF ECONOMICS Unavailable + [phone] Germania Navarro APRN, TELECOM NETWORK MANAGER Unavailable Leny Morales MD Unavailable [phone] Silva Vicente MD Primary Care Provider [phone] Reason for Visit * Reason Comments Medication Refill Encounter Details Date Type Department Care Team (Late st Contact Info) Description 02/18/2022 Refill [facility] - Neurology - [place] [address] [place] [address] Mac Sher MD #2 [place] [address] Medication Refill Social History Tobacco [...] Telephone Encounter - Manisha Chavez RN - 02/18/2022 2:20 PM CDT You discontinued this medicine per her med list and I dont see it mentioned in any office note but pt is wanting refill??? documented in this encounter Plan of Treatment Upcoming Encounters Date Type Department Care Team (Latest Contact Info) Description 12/30/2024 8:00 AM CDT [facility] 1 [place] [address] Kwadwo Montalvo MD 2 [facility] [address] [address] 12/30/2024 8:00 AM CDT - 12/30/2024 8:30 AM CDT [facility] 1 [place] [address] Kwadwo Montalvo MD 2 [place] [facility] [address] [place] [address] EGD 01/03/2025 11:30 AM CDT [facility] 1 [facility] [place] [address] Robert aMe MD #2 [place] [address] Discharge Disposition: Discharged to home or Selfcare 01/28/2025 10:45 AM CDT [facility] - [place] #2 [place] [address] Robert Mae MD #2 [place] [address] 03/11/2025 10:30 AM CDT [facility] - [place] #2 [place] [address] Maryann El APRN, PROFESSOR OF ECONOMICS #2 [place], [place] [address] Scheduled Procedures Name Priority Associated Diagnoses Date/Ti me EGD ULCER OF THE ESOPHAGUS 12/30/2024 8:00 AM CDT documented as of this encounter Visit Diagnoses Not on filedocumented in this encounter Additional Health Concerns Infection Onset Date Last Indicated Resolved Time COVID - 19 09/03/2024 09/03/2024 09/03/2024 9:25 PM SANITATION WORKER documented as of this encounter Care Teams Oracle E Business Developer Relationship Specialty Start Date End Date Winifred Armstrong, CEO & FOUNDER, TELECOM NETWORK MANAGER [address] [place] [address] PCP - General Advanced Practice Nurse 10/17/19 Micky Dickson MD [address] [place] [address] [address] [place] [address] PCP - General Family Medicine 09/25/23 07/04/24 Silva Vicente MD [address] [place] [address] [address] PCP - General Family Medicine 07/05/24 Mac Sher MD #2 [place] [address] Consulting Physician Neurology 09/15/15 Robert Mae MD #2 [place] [address] Consulting Physician Pulmonary Disease 10/27/22 Maryann El APRN, PROFESSOR OF ECONOMICS #2 [place] [address] Nurse Practitioner Advanced Practice Nurse 12/21/22 Germania Navarro APRN, TELECOM NETWORK MANAGER #2 [place] [address] Nurse Practitioner Advanced Practice Nurse 10/04/23 Leny Morales MD #2 [place] [address] Consulting Physician Gastroenterology 01/19/23 documented as of this encounter
--- OUTSIDE RECORDS SUMMARY | 2024-12-17 14:02 | XMS_ITS | Encounter Summary ---
Author Organization [facility] Address [address] [place] [address] Phone Care Team Providers Care Steam Engineer Name Role Phone Mac Sher MD Unavailable [phone] Winifred Armstrong MOTORCYCLE RACER, CEMETERY WARDEN Primary Care Provider Micky Dickson MD Primary Care Provider [phone] Robert Mae MD Unavailable Maryann El APRN, JOB SERVICE SPECIALIST Unavailable + [phone] Germania Navarro APRN, CEMETERY WARDEN Unavailable Leny Morales MD Unavailable [phone] Silva Vicente MD Primary Care Provider [phone] Reason for Visit * Reason Comments Medication Refill Encounter Details Date Type Department Care Team (Late st Contact Info) Description 06/10/2022 Refill [facility] - Neurology - [place] #2 [place] [address] Mac Sher MD #2 [place] [address] Medication Refill Social History Tobacco [...] Description 12/30/2024 8:00 AM CDT [facility] 1 [place] [address] Kwadwo Montalvo MD [address] [address] 12/30/2024 8:00 AM CDT - 12/30/2024 8:30 AM CDT [facility] 1 [place] [address] Kwadwo Montalvo MD [address] [address] EGD 01/03/2025 11:30 AM CDT [facility]ointment [facility] Res[facility] 1 [place] [address] Robert Mae MD #2 [place] [address] Discharge Disposition: Discharged to home or Selfcare 01/28/2025 10:45 AM CDT Office Visit [facility] - Pulmonology & Sleep Medicine - [place] #2 [place] [address] Robert Mae MD #2 [place] [address] 03/11/2025 10:30 AM CDT [facility] [place] #2 [place] [address] Maryann El, MOTORCYCLE RACER, JOB SERVICE SPECIALIST #2 [place] [address] Scheduled Procedures Name Priority Associated Diagnoses Date/Ti me EGD ULCER OF THE ESOPHAGUS 12/30/2024 8:00 AM CDT documented as of this encounter Visit Diagnoses Not on filedocumented in this encounter Additional Health Concerns Infection Onset Date Last Indicated Resolved Time COVID - 19 09/03/2024 09/03/2024 09/03/2024 9:25 PM MEDICAL DATA ENTRY CLERK documented as of this encounter Care Teams Steam Engineer Relationship Specialty Start Date End Date Winifred Armstrong, MOTORCYCLE RACER, CEMETERY WARDEN [address] [place] [address] PCP - General Advanced Practice Nurse 10/17/19 Micky Dickson MD [address] [place] [address] [place] [address] PCP - General Family Medicine 09/25/23 07/04/24 Silva Vicente MD [address] [place] [address] [place] [address] PCP - General Family Medicine 07/05/24 Mac Sher MD #2 [place] [address] Consulting Physician Neurology 09/15/15 Robert Mae MD #2 [place] [address] Consulting Physician Pulmonary Disease 10/27/22 Maryann El, MOTORCYCLE RACER, JOB SERVICE SPECIALIST #2 [place] [address] Nurse Practitioner Advanced Practice Nurse 12/21/22 Germania Navarro APRN, CEMETERY WARDEN #2 [place] [address] Nurse Practitioner Advanced Practice Nurse 10/04/23 Leny Morales MD #2 [place] [address] Consulting Physician Gastroenterology 01/19/23 documented as of this encounter
--- OUTSIDE RECORDS SUMMARY | 2024-12-17 14:02 | XMS_ITS | Encounter Summary ---
Author Organization [facility] Address [address] [place] [address] Phone Care Team Providers Care Animator Name Role Phone Mac Sher MD Unavailable [phone] PRODUCTION, ASSISTANT COUNTY ENGINEER Primary Care Provider Micky Dickson MD Primary Care Provider Robert Mae MD Unavailable Maryann El APRN, BAR ROLLER Unavailable + [phone] Germania Navarro APRN, ASSISTANT COUNTY ENGINEER Unavailable Leny Morales MD Unavailable [phone] Silva Vicente MD Primary Care Provider [phone] Reason for Visit * Reason Comments Medication Refill Encounter Details Date Type Department Care Team (Late st Contact Info) Description 09/29/2020 [facility]ill [facility] - [place] #1 [place] [address] Mac Sher MD #2 [place] [address] Medication Refill Social History Tobacco [...] have Coronavirus / COVID-19? No / Unsure 09/30/2020 6:05 AM CRAPS DEALER documented as of this encounter Plan of Treatment Upcoming Encounters Date Type Department Care Team (Latest Contact Info) Description 12/30/2024 8:00 AM CDT [facility] 1 [place] [address] Kwadwo Montalvo MD [address] [address] 12/30/2024 8:00 AM CDT - 12/30/2024 8:30 AM CDT Surgery [facility] 1 [place] [address] Kwadwo Montalvo MD [address] [address] EGD 01/03/2025 11:30 AM CDT Appoint[facility] Respiratory Therapy 1 [place] [address] Robert Mae MD #2 [place] [address] Discharge Disposition: Discharged to home or Selfcare 01/28/2025 10:45 AM CDT Office Visit [facility] - Pulmonology & Sleep Medicine - [place] #2 [place] [address] Robert Mae MD #2 [place] [address] 03/11/2025 10:30 AM CDT [facility] [place] #2 [place] [address] Maryann El APRN, BAR ROLLER #2 [place] [address] Scheduled Procedures Name Priority Associated Diagnoses Date/Ti me EGD ULCER OF THE ESOPHAGUS 12/30/2024 8:00 AM CDT documented as of this encounter Visit Diagnoses Not on filedocumented in this encounter Additional Health Concerns Infection Onset Date Last Indicated Resolved Time COVID - 19 06/23/2021 06/23/2021 06/29/2021 9:24 PM CDT COVID - 19 09/03/2024 09/03/2024 09/03/2024 9:25 PM CRAPS DEALER documented as of this encounter Care Teams Animator Relationship Specialty Start Date End Date Winifred Armstrong APRN, ASSISTANT COUNTY ENGINEER [address] [place] [address] PCP - General Advanced Practice Nurse 10/17/19 Micky Dickson MD [address] [place] [address] [place] [address] PCP - General Family Medicine 09/25/23 07/04/24 Silva Vicente MD [address] [place] [address] [place] [address] PCP - General Family Medicine 07/05/24 Mac Sher MD #2 [place] [address] Consulting Physician Neurology 09/15/15 Robert Mae MD #2 [place] [address] Consulting Physician Pulmonary Disease 10/27/22 Maryann El APRN, BAR ROLLER #2 [place] [address] Nurse Practitioner Advanced Practice Nurse 12/21/22 Germania Navarro APRN, ASSISTANT COUNTY ENGINEER #2 [place] [address] Nurse Practitioner Advanced Practice Nurse 10/04/23 Leny Morales MD #2 [place] [address] Consulting Physician Gastroenterology 01/19/23 documented as of this encounter
--- OUTSIDE RECORDS SUMMARY | 2024-12-17 14:02 | XMS_ITS | Encounter Summary ---
Author Organization [facility] Address [address] [place] [address] Phone Care Team Providers Care Tour Leader Name Role Phone Mac Sher MD Unavailable [phone] Winifred Armstrong FIBER ARTIST, LEATHER GRADER Primary Care Provider Micky Dickson MD Primary Care Provider [phone] Robert Mae MD Unavailable Maryann El APRN, CORD CUTTER Unavailable + [phone] Germania Navarro APRN, LEATHER GRADER Unavailable Leny Morales MD Unavailable [phone] Silva Vicente MD Primary Care Provider [phone] Reason for Visit * Reason Comments Medication Refill Encounter Details Date Type Department Care Team (Late st Contact Info) Description 06/21/2021 Refill [facility] - Neurology - [place] #2 [place] [address] Mac Sher MD #2 [place] [address] Medication Refill Social History Tobacco [...] 8:00 AM CDT [facility] 1 [place] [address] Kwadwo Montalvo MD [address] [address] 12/30/2024 8:00 AM CDT - 12/30/2024 8:30 AM CDT Surgery [facility] 1 [place] [address] Kwadwo Montalvo MD [address] [address] EGD 01/03/2025 11:30 AM CDT [facility]ment [facility] 1 [place] [address] Robert Mae MD #2 [place] [address] Discharge Disposition: Discharged to home or Selfcare 01/28/2025 10:45 AM CDT Office Visit [facility] - Pulmonology & Sleep Medicine - [place] #2 [place] [address] Robert Mae MD #2 [place] [address] 03/11/2025 10:30 AM CDT [facility] - [place] #2 [place] [address] Maryann El APRN, CORD CUTTER #2 [place] [address] Scheduled Procedures Name Priority Associated Diagnoses Date/Ti me EGD ULCER OF THE ESOPHAGUS 12/30/2024 8:00 AM CDT documented as of this encounter Visit Diagnoses Not on filedocumented in this encounter Additional Health Concerns Infection Onset Date Last Indicated Resolved Time COVID - 19 06/23/2021 06/23/2021 06/29/2021 9:24 PM CDT COVID - 19 09/03/2024 09/03/2024 09/03/2024 9:25 PM RADIUS CORNER MACHINE OPERATOR documented as of this encounter Care Teams Tour Leader Relationship Specialty Start Date End Date Winifred Armstrong APRN, LEATHER GRADER [address] [place] [address] PCP - General Advanced Practice Nurse 10/17/19 Micky Dickson MD [address] [place] [address] [place] [address] PCP - General Family Medicine 09/25/23 07/04/24 Silva Vicente MD [address] [place] [address] [place] [address] PCP - General Family Medicine 07/05/24 Mac Sher MD #2 [place] [address] Consulting Physician Neurology 09/15/15 Robert Mae MD #2 [place] [address] Consulting Physician Pulmonary Disease 10/27/22 Maryann El APRN, CORD CUTTER #2 [place] [address] Nurse Practitioner Advanced Practice Nurse 12/21/22 Germania Navarro APRN, LEATHER GRADER #2 [place] [address] Nurse Practitioner Advanced Practice Nurse 10/04/23 Leny Morales MD #2 [place] [address] Consulting Physician Gastroenterology 01/19/23 documented as of this encounter
--- OUTSIDE RECORDS SUMMARY | 2024-12-17 14:02 | XMS_ITS | Encounter Summary ---
Author Organization [facility] Address [address] [place] [address] Phone Care Team Providers Care Shopper'S Aide Name Role Phone Mac Sher MD Unavailable Winifred Armstrong INSURANCE SALES AGENT, ELECTRIC MOTOR REBUILDER Primary Care Provider Micky Dickson MD Primary Care Provider Robert Mae MD Unavailable Maryann El APRN, PARADI OPERATOR Unavailable + [phone] Germania Navarro APRN, ELECTRIC MOTOR REBUILDER Unavailable Leny Morales MD Unavailable [phone] Silva Vicente MD Primary Care Provider [phone] Reason for Visit * Reason Comments Medication Refill Encounter Details Date Type Department Care Team (Late st Contact Info) Description 08/18/2020 [facility]ill [facility]rology - [place] #1 [place] [address] Mac Sher MD #2 [place] [address] Medication Refill Social History Tobacco [...] [facility]counter [facility] 1 [place] [address] Kwadwo Montalvo MD [address] [address] 12/30/2024 8:00 AM CDT - 12/30/2024 8:30 AM CDT [facility] 1 [place] [address] Kwadwo Montalvo MD [address] [address] EGD 01/03/2025 11:30 AM CDT Appointment [facility] Respiratory Therapy 1 [place] [address] Robert Mae MD #2 [place] [address] Discharge Disposition: Discharged to home or Selfcare 01/28/2025 10:45 AM CDT Office Visit [facility] - Pulmonology & Sleep Medicine - [place] #2 [place] [address] Robert Mae MD #2 [place] [address] 03/11/2025 10:30 AM CDT Office Visit [facility] - Neurology - [place] #2 [place] [address] Maryann El, INSURANCE SALES AGENT, PARADI OPERATOR #2 [place] [address] Scheduled Procedures Name Priority Associated Diagnoses Date/Ti me EGD ULCER OF THE ESOPHAGUS 12/30/2024 8:00 AM CDT documented as of this encounter Visit Diagnoses Not on filedocumented in this encounter Additional Health Concerns Infection Onset Date Last Indicated Resolved Time COVID - 19 06/23/2021 06/23/2021 06/29/2021 9:24 PM CDT COVID - 19 09/03/2024 09/03/2024 09/03/2024 9:25 PM BINDER STRIPPER MACHINE documented as of this encounter Care Teams Shopper'S Aide Relationship Specialty Start Date End Date Winifred Armstrong, INSURANCE SALES AGENT, ELECTRIC MOTOR REBUILDER [address] [place] [address] PCP - General Advanced Practice Nurse 10/17/19 Micky Dickson MD [address] [place] [address] DR [address] [place] [address] PCP - General Family Medicine 09/25/23 07/04/24 Silva Vicente MD [address] [place] [address] [place] [address] PCP - General Family Medicine 07/05/24 Mac Sher MD #2 [place] [address] Consulting Physician Neurology 09/15/15 Robert Mae MD #2 [place] [address] Consulting Physician Pulmonary Disease 10/27/22 Maryann El APRN, PARADI OPERATOR #2 [place] [address] Nurse Practitioner Advanced Practice Nurse 12/21/22 Germania Navarro APRN, ELECTRIC MOTOR REBUILDER #2 [place] [address] Nurse Practitioner Advanced Practice Nurse 10/04/23 Leny Morales MD #2 [place] [address] Consulting Physician Gastroenterology 01/19/23 documented as of this encounter
--- OUTSIDE RECORDS SUMMARY | 2024-12-17 14:02 | XMS_ITS | Encounter Summary ---
Author Organization [facility] Address [address] [place] [address] Phone Care Team Providers Care Plant Reliability Engineer Name Role Phone Mac Sher MD Unavailable [phone] Winifred Armstrong TINNING MACHINE SET UP OPERATOR, RADIOPHARMACIST Primary Care Provider Micky Dickson MD Primary Care Provider Robert Mae MD Unavailable Maryann El APRN, REVENUE CYCLE ADMINISTRATOR Unavailable + [phone] Germania Navarro APRN, RADIOPHARMACIST Unavailable Leny Morales MD Unavailable [phone] Silva Vicente MD Primary Care Provider [phone] Encounter Details Date Type Department Care Team (Late st Contact Info) Description 12/08/2021 [facility] 1 [place] [address] Winifred Armstrong APRN, RADIOPHARMACIST [address] [place], [place] [id number] Pressure ulcer of right elbow, stage 2 (HCC) Social History Tobacco Use Types Packs/Day Years [...] COVID-19? No / Unsure 12/03/2021 10:46 AM SUPERVISOR MAINTENANCE AND CUSTODIANS documented as of this encounter Plan of Treatment Upcoming Encounters Date Type Department Care Team (Latest Contact Info) Description 12/30/2024 8:00 AM CDT Hospital [facility] 1 [place] [address] Kwadwo Montalvo MD [address] [address] 12/30/2024 8:00 AM CDT - 12/30/2024 8:30 AM CDT Surgery [facility] 1 [place] [address] Kwadwo Montalvo MD [address] [address] EGD 01/03/2025 11:30 AM CDT [facility]ointment [facility] Res[facility] 1 [place] [address] Robert Mae MD #2 [place] [address] Discharge Disposition: Discharged to home or Selfcare 01/28/2025 10:45 AM CDT Office Visit [facility] - Pulmonology & Sleep Medicine - [place] #2 [place] [address] Robert Mae MD #2 [place] [address] 03/11/2025 10:30 AM CDT Office Visit [facility] - Neurology - [place] #2 [place] [address] Maryann El APRN, REVENUE CYCLE ADMINISTRATOR #2 [place] [address] Scheduled Procedures Name Priority Associated Diagnoses Date/Ti me EGD ULCER OF THE ESOPHAGUS 12/30/2024 8:00 AM CDT documented as of this encounter Procedures Procedure Name Priority Date/Time Associated Diagnosis Comments CULTURE, ANAEROBIC Routine 12/08/2021 11 :30 AM SUPERVISOR MAINTENANCE AND CUSTODIANS CULTURE, AEROBIC ONLY Routine 12/08/2021 11:30 AM SUPERVISOR MAINTENANCE AND CUSTODIANS documented in this encounter Results * CULTURE, ANAEROBIC (12/08/2021 11:30 AM SUPERVISOR MAINTENANCE AND CUSTODIANS) CULTURE RESULTS NO ANAEROBES ISOLATED 12/14/2021 9:16 AM SUPERVISOR MAINTENANCE AND CUSTODIANS [facility] CULTURE RESULTS STAPHYLOCOCCUS AUREUS 12/14/2021 9:16 AM SUPERVISOR MAINTENANCE AND CUSTODIANS [facility] Culture Non-Phlebotomy Collection / Unknown 12/08/2021 11:30 AM SUPERVISOR MAINTENANCE AND CUSTODIANS 12/08/2021 12:58 PM SUPERVISOR MAINTENANCE AND CUSTODIANS Narrative Organism Antibiotic Method Susceptibility Staphylococcus aureus Gentamicin [facility] VITEK II <=0.5 mcg/ml: Susceptible Staphylococcus aureus Oxacillin [facility] VITEK II 0.5 mcg/ml: Susceptible Staphylococcus aureus Tetracycline [facility] VITEK II <=1 mcg/ml: Susceptible Staphylococcus aureus Trimeth/Sulfamethoxazole [facility] DARIO II <=10 mcg/ml: Susceptible Staphylococcus aureus Vancomycin [facility] VITEK II <=0.5 mcg/ml: Susceptible us Winifred Armstrong APRN, CNP MICROBIOLOGY - GENERAL ORDERABLES Final Result [facility] [address] [place] [address], [place] * CULTURE, AEROBIC (12/08/2021 11:30 AM SUPERVISOR MAINTENANCE AND CUSTODIANS) CULTURE RESULTS STAPHYLOCOCCUS AUREUS 12/11/2021 3:39 PM SUPERVISOR MAINTENANCE AND CUSTODIANS [facility] CULTURE RESULTS MORGANELLA MORGANII 12/11/2021 3:39 PM SUPERVISOR MAINTENANCE AND CUSTODIANS [facility] Culture Non-Phlebotomy Collection / Unknown 12/08/2021 11:30 AM SUPERVISOR MAINTENANCE AND CUSTODIANS 12/08/2021 12:58 PM SUPERVISOR MAINTENANCE AND CUSTODIANS Narrative Organism Antibiotic Method Susceptibility Staphylococcus aureus Gentamicin [facility] VITEK IIB <=0.5 mcg/ml: Susceptible Staphylococcus aureus Oxacillin [facility] V[facility]K IIB 0.5 mcg/ml: Susceptible Staphylococcus aureus Tetracycline [facility] VITEK IIB <=1 mcg/ml: Susceptible Staphylococcus aureus Trimeth/Sulfametho xazol e [facility] V[facility]K IIB <=10 mcg/ml: Susceptible Staphylococcus aureus Vancomycin [facility] VITEK IIB 1 mcg/ml: Susceptible Morganella morganii Ampicillin [facility] VITEK IIB >=32 mcg/ml: Resistant Morganella morganii Ampicillin/sulbactam [facility] V[facility]K II B >=32 mcg/ml: Resistant Morganella morganii Cefazolin [facility] V[facility]K IIB >=64 mcg/ml: Resistant Morganella morganii Ceftriaxone [facility] V[facility] IIB <=1 mcg/ml: Susceptible Morganella morganii Gentamicin [facility] V[facility]K IIB <=1 mcg/ml: Susceptible Morganella morganii Levofloxacin [facility] V[facility]K IIB <=0.12 mcg/ml: Susceptible Morganella morganii Meropenem [facility] V[facility] IIB <=0.25 mcg/ml: Susceptible Morganella morganii Piperacillin/Tazobactam [facility] V[facility]K IIB <=4 mcg/ml: Susceptible Morganella morganii Tobramycin [facility] VITEK IIB <=1 mcg/ml: Susceptible Morganella morganii Trimeth/Sulfamethoxa zol e [facility] V[facility]K IIB <=20 mcg/ml: Susceptible us Winifred Armstrong APRN RADIOPHARMACIST MICROBIOLOGY - GENERAL ORDERABLES Final Result [facility] [address] [place] [address], documented in this encounter Visit Diagnoses Diagnosis Pressure ulcer of right elbow, stage 2 (HCC) documented in this encounter Additional Health Concerns Infection Onset Date Last Indicated Resolved Time COVID - 19 09/03/2024 09/03/2024 09/03/2024 9:25 PM SUPERVISOR MAINTENANCE AND CUSTODIANS documented as of this encounter Care Teams Plant Reliability Engineer Relationship Specialty Start Date End Date Winifred Armstrong APRN RADIOPHARMACIST [address] [place] [address] PCP - General Advanced Practice Nurse 10/17/19 Micky Dickson MD 4 [facility] [address]STRO [address] [place] [address] PCP - General Family Medicine 09/25/23 07/04/24 Silva Vicente MD 4 [facility] [address] CASTRO [address] [place] [address] PCP - General Family Medicine 07/05/24 Mac Sher MD #2 [place] [address] Consulting Physician Neurology 09/15/15 Robert Mae MD #2 [place] [address] Consulting Physician Pulmonary Disease 10/27/22 Maryann lE APRN, REVENUE CYCLE ADMINISTRATOR #2 [place] [address] Nurse Practitioner Advanced Practice Nurse 12/21/22 Germania Navarro APRN, CIRILO #2 [place] [address] Nurse Practitioner Advanced Practice Nurse 10/04/23 Leny Morales MD #2 [place] [address] Consulting Physician Gastroenterology 01/19/23 documented as of this encounter
--- OUTSIDE RECORDS SUMMARY | 2024-12-17 14:02 | XMS_ITS | Encounter Summary ---
Author Organization [facility] Address [address] [place] [address] Phone Care Team Providers Care Accounts Collector Name Role Phone Mac Sher MD Unavailable [phone] Winifred Armstrong WINDING DEPARTMENT SUPERVISOR, RESULTS ENGINEER Primary Care Provider Micky Dickson MD Primary Care Provider Robert Mae MD Unavailable Maryann El APRN, FINISHING ROOM SUPERVISOR Unavailable + [phone] Germania Navarro APRN, RESULTS ENGINEER Unavailable Leny Morales MD Unavailable [phone] Silva Vicente MD Primary Care Provider [phone] Reason for Visit * Reason Comments Medication Refill Encounter Details Date Type Department Care Team (Late st Contact Info) Description 06/28/2022 Refill [facility] - Neurology - [place] #2 [place] [address] Mac Sher MD #2 [place] [address] Medication Refill Social History Tobacco [...] [facility] 1 [place] [address] Kwadwo Montalvo MD [address] [address] 12/30/2024 8:00 AM CDT - 12/30/2024 8:30 AM CDT [facility] 1 [place] [address] Kwadwo Montalvo MD [address] [address] EGD 01/03/2025 11:30 AM CDT [facility]ment [facility] Res[facility] 1 [place] [address] Robert Mae MD #2 [place] [address] Discharge Disposition: Discharged to home or Selfcare 01/28/2025 10:45 AM CDT Office Visit [facility] - Pulmonology & Sleep Medicine - [place] #2 [place] [address] Robert Mae MD #2 [place] [address] 03/11/2025 10:30 AM CDT [facility] [place] #2 [place] [address] Maryann El, WINDING DEPARTMENT SUPERVISOR, FINISHING ROOM SUPERVISOR #2 [place] [address] Scheduled Procedures Name Priority Associated Diagnoses Date/Ti me EGD ULCER OF THE ESOPHAGUS 12/30/2024 8:00 AM CDT documented as of this encounter Visit Diagnoses Not on filedocumented in this encounter Additional Health Concerns Infection Onset Date Last Indicated Resolved Time COVID - 19 09/03/2024 09/03/2024 09/03/2024 9:25 PM INTERMEDIATE ACCOUNTANT documented as of this encounter Care Teams Accounts Collector Relationship Specialty Start Date End Date Winifred Armstrong, WINDING DEPARTMENT SUPERVISOR, RESULTS ENGINEER [address] [place] [address] PCP - General Advanced Practice Nurse 10/17/19 Micky Dickson MD [address] [place] [address] [place] [address] PCP - General Family Medicine 09/25/23 07/04/24 Silva Vicente MD [address] [place] [address] [place] [address] PCP - General Family Medicine 07/05/24 Mac Sher MD #2 [place] [address] Consulting Physician Neurology 09/15/15 Robert Mae MD #2 [place] [address] Consulting Physician Pulmonary Disease 10/27/22 Maryann El, WINDING DEPARTMENT SUPERVISOR, FINISHING ROOM SUPERVISOR #2 [place] [address] Nurse Practitioner Advanced Practice Nurse 12/21/22 Germania Navarro APRN, RESULTS ENGINEER #2 [place] [address] Nurse Practitioner Advanced Practice Nurse 10/04/23 Leny Morales MD #2 [place] [address] Consulting Physician Gastroenterology 01/19/23 documented as of this encounter
--- OUTSIDE RECORDS SUMMARY | 2024-12-17 14:02 | XMS_ITS | Encounter Summary ---
Author Organization [facility] Address [address] [place] [address] Phone Care Team Providers Care Fermenter Name Role Phone Mac Sher MD Unavailable [phone] Micky Dickson MD Primary Care Provider [phone] Robert Mae MD Unavailable Maryann El APRN, INNER TUBE CUTTER Unavailable + [phone] Germania Navarro APRN, GUEST RELATIONS MANAGER Unavailable Leny Morales MD Unavailable [phone] Silva Vicente MD Primary Care Provider [phone] Reason for Visit * Reason Comments Medication Refill Encounter Details Date Type Department Care Team (Late st Contact Info) Description 11/24/2023 [facility]ill [facility] - Gastroenterology - [place] [address] [place] [address] Leny Morales MD #2 [place] [address] Medication Refill Social History Tobacco Use Types [...] Telephone Encounter - Monica Marcelo RN - 11/24/2023 3:07 PM LUNCHEONETTE MANAGER Medication refilled and signed per [facility] chronic medication standing order for pediatric and adult patients. HEONETTE MANAGER documented in this encounter Plan of Treatment Upcoming Encounters Date Type Department Care Team (Latest Contact Info) Description 12/30/2024 8:00 AM CDT Hospital Encounter [facility] Gi Lab Periop 1 [place] [address] Kwadwo Montalvo MD [address] [address] 12/30/2024 8:00 AM CDT - 12/30/2024 8:30 AM CDT Surgery [facility] Gi Lab Periop 1 [place] [address] Kwadwo Montalvo MD 2 [facility] [address] [address] EGD 01/03/2025 11:30 AM CDT Appointment [facility] Respiratory Therapy 1 [place] [address] Robert Mae MD #2 [place] [address] Discharge Disposition: Discharged to home or Selfcare 01/28/2025 10:45 AM CDT Office Visit [facility] - Pulmonology & Sleep Medicine [facility] #2 [place] [address] Robert Mae MD #2 [place] [address] 03/11/2025 10:30 AM CDT [facility] - [place] #2 [place] [address] Maryann El APRN, INNER TUBE CUTTER #2 [place] [address] Scheduled Procedures Name Priority Associated Diagnoses Date/Ti me EGD ULCER OF THE ESOPHAGUS 12/30/2024 8:00 AM CDT documented as of this encounter Visit Diagnoses Not on filedocumented in this encounter Additional Health Concerns Infection Onset Date Last Indicated Resolved Time COVID - 19 09/03/2024 09/03/2024 09/03/2024 9:25 PM LUNCHEONETTE MANAGER documented as of this encounter Care Teams Fermenter Relationship Specialty Start Date End Date Micky Dickson MD [address] [place] [address] DR CASTRO [address] [place] [address] PCP - General Family Medicine 09/25/23 07/04/24 Silva Vicente MD [address] [place] [address] DR CASTRO [address] [place] [address] PCP - General Family Medicine 07/05/24 Mac Sher MD #2 [place] [address] Consulting Physician Neurology 09/15/15 Robert Mae MD #2 [place] [address] Consulting Physician Pulmonary Disease 10/27/22 Maryann El APRN, INNER TUBE CUTTER #2 [place] [address] Nurse Practitioner Advanced Practice Nurse 12/21/22 Germania Navarro APRN, GUEST RELATIONS MANAGER #2 [place] [address] Nurse Practitioner Advanced Practice Nurse 10/04/23 Leny Morales MD #2 [place] [address] Consulting Physician Gastroenterology 01/19/23 documented as of this encounter
--- OUTSIDE RECORDS SUMMARY | 2024-12-17 14:03 | XMS_ITS | Encounter Summary ---
Author Organization [facility] Address [address] [place] [address] Phone Care Team Providers Care Entry Level Manager Name Role Phone Mac Sher MD Unavailable [phone] Winifred Armstrong CATH LAB TECH, INSULATION HOSEMAN Primary Care Provider Micky Dickson MD Primary Care Provider [phone] Robert Mae MD Unavailable Maryann El APRN, DIE OPERATOR Unavailable + [phone] Germania Navarro APRN, INSULATION HOSEMAN Unavailable Leny Morales MD Unavailable [phone] Silva Vicente MD Primary Care Provider [phone] Reason for Visit * Reason Comments Medication Refill Encounter Details Date Type Department Care Team (Late st Contact Info) Description 08/04/2021 Refill [facility] - [facility]ology - [place] #2 [place] [phone] Joann Bowers Juana, PAC #2 [place] [address] Medication Refill Social History Tobacco Use Types [...] have Coronavirus / COVID-19? No / Unsure 07/28/2021 9:41 AM CDT documented as of this encounter Miscellaneous Notes * Telephone Encounter - Monica Marcelo RN - 08/04/2021 1:49 PM CDT Medication refilled and signed [facility] chronic medication standing order for pediatric and adult patients. * Telephone Encounter - Monica Marcelo RN - 08/04/2021 1:38 PM CDT Pharmacy requesting refill of: Requested Prescriptions Pending Prescriptions Disp Refills ??? Linzess 145 MCG Capsule [Pharmacy Med Name: Linzess 145 MCG Oral Capsule] 90 Capsule 0 Sig: TAKE 1 CAPSULE BY MOUTH IN THE MORNING BEFORE BREAKFAST Last fill: 07/03/2020 for 90 caps and 2 refills Patients last OV with GI: 07/03/2020 Next Office Visit with GI: Recall noted per chart review. Called patient, appt scheduled for 08/17/2021. documented in this encounter Plan of Treatment Upcoming Encounters Date Type Department Care Team (Latest Contact Info) Description 12/30/2024 8:00 AM CDT [facility] 1 [place] [address] Kwadwo Montalvo MD 2 [facility] [address] [place] [address] 12/30/2024 8:00 AM CDT - 12/30/2024 8:30 AM CDT Surgery [facility] Gi Lab Periop 1 [place] [address] Kwadwo Montalvo MD [address] [facility] [facility] [address] [address] EGD 01/03/2025 11:30 AM CDT [facility] Res[facility] 1 [place] [address] Robert Mae MD #2 [place] [address] Discharge Disposition: Discharged to home or Selfcare 01/28/2025 10:45 AM CDT Office [facility] - Pulmonology & Sleep Medicine - [place] #2 [place] [address] Robert Mae MD #2 [place] [address] 03/11/2025 10:30 AM CDT Office Visit [facility] - Neurology - [place] #2 [place] [address] Maryann El APRN, DIE OPERATOR #2 [place] [address] Scheduled Procedures Name Priority Associated Diagnoses Date/Ti me EGD ULCER OF THE ESOPHAGUS 12/30/2024 8:00 AM CDT documented as of this encounter Visit Diagnoses Diagnosis Irritable bowel syndrome with both constipation and diarrhea documented in this encounter Additional Health Concerns Infection Onset Date Last Indicated Resolved Time COVID - 19 09/03/2024 09/03/2024 09/03/2024 9:25 PM FLUTE GRINDER documented as of this encounter Care Teams Entry Level Manager Relationship Specialty Start Date End Date Winifred Armstrong APRN, INSULATION HOSEMAN [address] [place] [address] PCP - General Advanced Practice Nurse 10/17/19 Micky Dickson MD [address] [facility] [address] CASTRO [address] [place] [address] PCP - General Family Medicine 09/25/23 07/04/24 Silva Vicente MD [address] [facility] [address] CASTRO [address] [place] [address] PCP - General Family Medicine 07/05/24 Mac Sher MD #2 [place] [address] Consulting Physician Neurology 09/15/15 Robert Mae MD #2 [place] [address] Consulting Physician Pulmonary Disease 10/27/22 Maryann El APRN, DIE OPERATOR #2 [place] [address] Nurse Practitioner Advanced Practice Nurse 12/21/22 Germania Navarro APRN, INSULATION HOSEMAN #2 [place] [address] Nurse Practitioner Advanced Practice Nurse 10/04/23 Leny Morales MD #2 [place] [address] Consulting Physician Gastroenterology 01/19/23 documented as of this encounter
--- OUTSIDE RECORDS SUMMARY | 2024-12-17 14:03 | XMS_ITS | Encounter Summary ---
Author Organization [facility] Address [address] [place] [address] Phone Care Team Providers Care Air Surveillance Operator Name Role Phone Mac Sher MD Unavailable Robert Mae MD Unavailable Maryann El APRN, STOCK PREPARATION SUPERVISOR Unavailable [phone] Germania Navarro APRN, LUBE ATTENDANT Unavailable Leny Morales MD Unavailable [phone] Silva Vicente MD Primary Care Provider Reason for Visit * Reason Comments Medication Refill Encounter Details Date Type Department Care Team (Late st Contact Info) Description 09/18/2024 Refill [facility] - Gastroenterology - [place] #2 [place] [address] Germania Navarro APRN, LUBE ATTENDANT #2 [place] [address] Medication Refill Social History Tobacco Use Types Packs/Day Years Used Date Smoking Tobacco: Former Cigarettes 0.5 25 Smokeless Tobacco: Never Comments:occassional Alcohol Use Standard Drinks/Week Comments Not Currently 0 (1 standard drink = 0.6 oz pur e alcohol) [facility] Utilities Answer Date Recorded In the past 12 months has th e electric, gas, oil, or water company threatened to shut off services in your home? Patient declined 04/16/2024 Social Connection and Isolation Panel [NHANES] A nswer Date Recorded In a typical week, how many times do you talk on the phone with family, friends, or neighbors? Patient declined 04/16/2024 How often do you get togethe r with friends or relatives? Patient declined 04/16/2024 How often do you attend congregation or rastafari serv ices? Patient declined 04/16/2024 Do you belong to any clubs o r organizations such as congregation groups, unions, fraternal or athletic groups, or [...] medical care, and heating? Patient declined 04/16/2024 [facility] - Occupational Stress Questionnaire Answer Date Recorded [...] any time in the past 12 m [facility], were you homeless or living in a prison (including now)? Patient declined 04/16/2024 Sexually Active Control Partners Comments Not Currently Comments No Sex and Gender Information Value Date Recorded Sex Assigned at Female 06/05/2023 10:27 AM CDT Legal Sex Female 10:21 PM CDT Gender Identity Female 06/05/2023 10:27 AM CDT Sexual Orientation Not on file documented as of this encounter Miscellaneous Notes * Telephone Encounter - Monica Marcelo RN - 09/23/2024 8:34 AM PULVERIZER OPERATOR Medication refilled and signed per [facility] chronic medication standing order for pediatric and adult patients. ERIZER OPERATOR documented in this encounter Plan of Treatment Upcoming Encounters Date Type Department Care Team (Latest Contact Info) Description 12/30/2024 8:00 AM CDT Hospital Encounter [facility] Gi Lab Periop 1 [facility] [place] [address] Kwadwo Montalvo MD [address] [facility] [address] [facility] [address] [place] [address] 12/30/2024 8:00 AM CDT - 12/30/2024 8:30 AM CDT Surgery [facility] Gi Lab Periop 1 [place] [address] Kwadwo Montalvo MD 2 [facility] [address] [place] [address] EGD 01/03/2025 11:30 AM CDT [facility] 1 [place] [address] Robert Mae MD #2 [place] [address] Discharge Disposition: Discharged to home or Selfcare 01/28/2025 10:45 AM CDT Office Visit [facility] - Pulmonology & Sleep Medicine - [place] #2 [place] [address] Robert Mae MD #2 [place] [address] 03/11/2025 10:30 AM CDT Office Visit [facility] - Neurology - [place] #2 [place] [address] Maryann El, STILL TENDER, STOCK PREPARATION SUPERVISOR #2 [place] [address] Scheduled Procedures Name Priority Associated Diagnoses Date/Ti me EGD ULCER OF THE ESOPHAGUS 12/30/2024 8:00 AM CDT documented as of this encounter Visit Diagnoses Not on filedocumented in this encounter Care Teams Air Surveillance Operator Relationship Specialty Start Date End Date Silva Vicente MD [address] [place] [address] [address] PCP - General Family Medicine 07/05/24 Mac Sher MD #2 [place] [address] Consulting Physician Neurology 09/15/15 Robert Mae MD #2 [place] [address] Consulting Physician Pulmonary Disease 10/27/22 Maryann El APRN, STOCK PREPARATION SUPERVISOR #2 [place] [address] Nurse Practitioner Advanced Practice Nurse 12/21/22 Germania Navarro APRN, LUBE ATTENDANT #2 [place] [address] Nurse Practitioner Advanced Practice Nurse 10/04/23 Leny Morales MD #2 [place] [address] Consulting Physician Gastroenterology 01/19/23 documented as of this encounter
--- OUTSIDE RECORDS SUMMARY | 2024-12-17 14:03 | XMS_ITS | Encounter Summary ---
Author Organization [facility] Address [address] [place] [address] Phone Care Team Providers Care Standards Engineer Name Role Phone Mac Sher MD Unavailable [phone] Winifred Armstrong MANUSCRIPT READER, AFTERSCHOOL Primary Care Provider Micky Dickson MD Primary Care Provider [phone] Robert Mae MD Unavailable aMryann El APRN, ROTARY LITHOGRAPHIC PRESS OPERATOR Unavailable + [phone] Germania Navarro APRN, AFTERSCHOOL Unavailable Leny Morales MD Unavailable [phone] Sivla Vicente MD Primary Care Provider [phone] Encounter Details Date Type Department Care Team (Late st Contact Info) Description 03/16/2022 Transcribe Orders [facility] Central Scheduling 1 [place] [address] Manuel Ventura MD [address] [place] [address] Social History Tobacco Use Types Packs/Day Years [...] suspected to have Coronavirus/COVID-19? No / Unsure 03/18/2022 9:06 AM CDT documented as of this encounter Plan of Treatment Upcoming Encounters Date Type Department Care Team (Latest Contact Info) Description 12/30/2024 8:00 AM CDT [facility] 1 [place] [address] Kwadwo Montalvo MD [address] [address] 12/30/2024 8:00 AM CDT - 12/30/2024 8:30 AM CDT [facility] 1 [place] [address] Kwadwo Montalvo MD [address] [address] EGD 01/03/2025 11:30 AM CDT [facility] 1 [place] [address] Robert Mae MD #2 [place] [address] Discharge Disposition: Discharged to home or Selfcare 01/28/2025 10:45 AM CDT Office Visit [facility] - Pulmonology & Sleep Medicine - [place] #2 [place] [address] Robert Mae MD #[address] [place] [address] 03/11/2025 10:30 AM CDT [facility] [place] #2 [place] [address] Maryann El, MANUSCRIPT READER, ROTARY LITHOGRAPHIC PRESS OPERATOR #[address] [place] [address] Scheduled Procedures Name Priority Associated Diagnoses Date/Ti me EGD ULCER OF THE ESOPHAGUS 12/30/2024 8:00 AM CDT documented as of this encounter Visit Diagnoses Not on filedocumented in this encounter Additional Health Concerns Infection Onset Date Last Indicated Resolved Time COVID - 19 09/03/2024 09/03/2024 09/03/2024 9:25 PM DISC RECORDIST documented as of this encounter Care Teams Standards Engineer Relationship Specialty Start Date End Date Winifred Armstrong APRN, AFTERSCHOOL [address] [place] [address] PCP - General Advanced Practice Nurse 10/17/19 Micky Dickson MD [address] [place] [address] DR CASTRO [address] [place] [address], [place] [address] PCP - General Family Medicine 09/25/23 07/04/24 Silva Vicente MD [address] [place] [address] [place] [address] PCP - General Family Medicine 07/05/24 Mac Sher MD #2 [place] [address] Consulting Physician Neurology 09/15/15 Robert Mae MD #[address] [place] [address] Consulting Physician Pulmonary Disease 10/27/22 Maryann El APRN, ROTARY LITHOGRAPHIC PRESS OPERATOR #2 [place] [address] Nurse Practitioner Advanced Practice Nurse 12/21/22 Germania Navarro APRN, AFTERSCHOOL #2 [place] [address] Nurse Practitioner Advanced Practice Nurse 10/04/23 Leny Morales MD #2 [place] [address] Consulting Physician Gastroenterology 01/19/23 documented as of this encounter
--- OUTSIDE RECORDS SUMMARY | 2024-12-17 14:03 | XMS_ITS | Encounter Summary ---
Author Organization [facility] Address [address] [place] [address] Phone Care Team Providers Care Infertility Nurse Name Role Phone Mac Sher MD Unavailable [phone] Robert Mae MD Unavailable Maryann El APRN, RECORD RETRIEVAL SPECIALIST Unavailable [phone] Germania Navarro APRN, THIRD HAND Unavailable Leny Morales MD Unavailable [phone] Silva Vicente MD Primary Care Provider Reason for Visit * Reason Comments Medication Refill Encounter Details Date Type Department Care Team (Late st Contact Info) Description 11/08/2024 Refill [facility] - Gastroenterology - [place] #2 [place] [address] Germania Navarro APRN, THIRD HAND #2 [place] [address] Medication Refill Social History Tobacco Use Types Packs/Day Years Used Date Smoking Tobacco: Former Cigarettes 0.5 25 Smokeless Tobacco: Never Comments:occassional Alcohol Use Standard Drinks/Week Comments Not Currently 0 (1 standard drink = 0.6 oz pur e alcohol) [facility] Utilities Answer Date Recorded In the past [...] declined 04/16/2024 How often do you attend hindu or baptism serv ices? Patient declined 04/16/2024 Do you belong to any clubs o r organizations such as hindu groups, unions, fraternal or athletic groups, or [...] medical care, and heating? Patient declined 04/16/2024 [facility] ional [facility] - [...] any time in the past 12 m [facility], were you homeless or living in a [facility] (including now)? Patient declined 04/16/2024 Sexually Active Control Partners Comments Not Currently Comments No Sex and Gender Information Value Date Recorded Sex Assigned at Female 06/05/2023 10:27 AM CDT Legal Sex Female 10:21 PM CDT Gender Identity Female 06/05/2023 10:27 AM CDT Sexual Orientation Not on file documented as of this encounter Miscellaneous Notes * Telephone Encounter - Monica Marcelo RN - 11/08/2024 11:56 AM BAR MACHINE OPERATOR MULTIPLE SPINDLE Medication refilled and signed per [facility] chronic medication standing order for pediatric and adult patients. MACHINE OPERATOR MULTIPLE SPINDLE documented in this encounter Plan of Treatment Upcoming Encounters Date Type Department Care Team (Latest Contact Info) Description 12/30/2024 8:00 AM CDT Hospital Encounter [facility] Gi Lab Periop 1 [facility] [place] [address] Kwadwo Montalvo MD [address] [facility] [address] [address] [facility] [address] [place] [address] 12/30/2024 8:00 AM CDT - 12/30/2024 8:30 AM CDT Surgery [facility] Gi Lab Periop 1 [place] [address] Kwadwo Montalvo MD 2 [facility] [address] [place] [address] EGD 01/03/2025 11:30 AM CDT [facility] 1 [place] [address] Robert Mae MD #2 [place] [address] Discharge Disposition: Discharged to home or Selfcare 01/28/2025 10:45 AM CDT Office Visit [facility] - Pulmonology & Sleep Medicine - [place] #2 [place] [address] Robert Mae MD #2 [place] [address] 03/11/2025 10:30 AM CDT Office Visit [facility] - Neurology - [place] #2 [place] [address] Maryann El, CRUSHED STONE GRADER, RECORD RETRIEVAL SPECIALIST #2 [place] [address] Scheduled Procedures Name Priority Associated Diagnoses Date/Ti me EGD ULCER OF THE ESOPHAGUS 12/30/2024 8:00 AM CDT documented as of this encounter Visit Diagnoses Not on filedocumented in this encounter Care Teams Infertility Nurse Relationship Specialty Start Date End Date Silva Vicente MD [address] [place] [address] [address] PCP - General Family Medicine 07/05/24 Mac Sher MD #2 [place] [address] Consulting Physician Neurology 09/15/15 Robert Mae MD #2 [place] [address] Consulting Physician Pulmonary Disease 10/27/22 Maryann El APRN, RECORD RETRIEVAL SPECIALIST #2 [place] [address] Nurse Practitioner Advanced Practice Nurse 12/21/22 Germania Navarro APRN, THIRD HAND #2 [place] [address] Nurse Practitioner Advanced Practice Nurse 10/04/23 Leny Morales MD #2 [place] [address] Consulting Physician Gastroenterology 01/19/23 documented as of this encounter
--- OUTSIDE RECORDS SUMMARY | 2024-12-17 14:03 | XMS_ITS | Encounter Summary ---
Author Organization [employer] Care Team Providers Care Photography Intern Name Role Phone Mac Sher MD Unavailable [phone] Robert Mae MD Unavailable Maryann El APRN, POWER HOUSE CONTROL ROOM OPERATOR Unavailable + [phone] Germania Navarro APRN, STITCHER FEEDER Unavailable Leny Morales MD Unavailable [phone] Silva Vicente MD Primary Care Provider [phone] Encounter Details Date Type Department Care Team (Latest Contact Info) Description 12/17/2024 Travel Social History Tobacco Use Types Packs/Day Years Used Date Smoking Tobacco: Former Cigarettes 0.5 25 Smokeless Tobacco: Never Comments:occassional Alcohol Use Standard Drinks/Week Comments Not Currently 0 (1 standard drink = 0.6 oz pur e alcohol) [facility] Utilities Answer Date Recorded In the past 12 months has [employer] electric, gas, oil, or water company threatened [...] declined 04/16/2024 How often do you attend temple or amish serv ices? Patient declined 04/16/2024 Do you belong to any clubs o r organizations such as temple groups, unions, fraternal or athletic groups, or [...] medical care, and heating? Patient declined 04/16/2024 [facility] Occupat ional [facility] - Occupational Stress Questionnaire Answer Date Recorded [...] any time in the past 12 m [facility], were you homeless or living in a penitentiary (including now)? Patient declined 04/16/2024 Sexually [facility] 1 [place] [address] Kwadwo Montalvo MD [address] [address] 12/30/2024 8:00 AM CDT - 12/30/2024 8:30 AM CDT [facility] 1 [place] [address] Kwadwo Montalvo MD 2 [facility] [address] [address] EGD 01/03/2025 11:30 AM CDT [facility]ointment [facility] Res[facility] Therapy 1 [place] [address] Robert Mae MD #2 [place] [address] Discharge Disposition: Discharged to home or Selfcare 01/28/2025 10:45 AM CDT Office Visit [facility] - Pulmonology & Sleep Medicine [facility] #2 [place] [address] Robert Mae MD #2 [place] [address] 03/11/2025 10:30 AM CDT Office Visit [facility] Neu[facility] - [place] #2 [place] [address] Maryann El APRN, POWER HOUSE CONTROL ROOM OPERATOR #2 [place] [address] Scheduled Procedures Name Priority Associated Diagnoses Date/Ti me EGD ULCER OF THE ESOPHAGUS 12/30/2024 8:00 AM CDT documented as of this encounter Visit Diagnoses Not on filedocumented in this encounter Care Teams Photography Intern Relationship Specialty Start Date End Date Silva Vicente MD [address] [place] [id number] PCP - General Family Medicine 07/05/24 Mac Sher MD #2 [place] [address] Consulting Physician Neurology 09/15/15 Robert Mae MD #2 [place] [address] Consulting Physician Pulmonary Disease 10/27/22 Maryann El APRN, POWER HOUSE CONTROL ROOM OPERATOR #2 [place] [address] Nurse Practitioner Advanced Practice Nurse 3/1/23 Germania Navarro APRN, [place] #2 [place] [address] Nurse Practitioner Advanced Practice Nurse 10/04/23 Leny Morales MD #2 [place] [address] Consulting Physician Gastroenterology 01/19/23 documented as of this encounter
--- OUTSIDE RECORDS SUMMARY | 2024-12-17 14:03 | XMS_ITS | Encounter Summary ---
Author Organization [facility] Address [address] [place] [address] Phone Care Team Providers Care Photographer Finish Name Role Phone Mac Sher MD Unavailable [phone] Micky Dickson MD Primary Care Provider Robert Mae MD Unavailable Maryann El APRN, ASSISTANT PROFESSOR OF NURSING Unavailable + [phone] Germania Navarro APRN, POLYETHYLENE BAG MACHINE OPERATOR Unavailable Leny Morales MD Unavailable [phone] Silva Vicente MD Primary Care Provider [phone] Reason for Visit * Reason Comments Medication Refill Encounter Details Date Type Department Care Team (Late st Contact Info) Description 06/15/2024 [facility]ill [facility] - Gastroenterology - [place] #2 [place] [address] Germania Navarro APRN, POLYETHYLENE BAG MACHINE OPERATOR #2 [place] [address] Medication Refill Social History Tobacco Use Types Packs/Day Years Used Date Smoking Tobacco: Former Cigarettes 0.5 25 Smokeless Tobacco: Never Comments:occassional Alcohol Use Standard Drinks/Week Comments Not Currently 0 (1 standard drink = 0.6 oz pur e alcohol) [facility] Utilities Answer Date Recorded In the [...] declined 04/16/2024 How often do you attend quaker or episcopal serv ices? Patient declined 04/16/2024 Do you belong to any clubs o r organizations such as quaker groups, unions, fraternal or athletic groups, or [...] medical care, and heating? Patient declined 04/16/2024 [facility] - Occupational Stress [...] time in the past 12 m [facility], were you homeless or living in a custodial (including now)? Patient declined 04/16/2024 Sexually Active Control Partners Comments Not Currently Comments No Sex and Gender Information Value Date Recorded Sex Assigned at Female 06/05/2023 10:27 AM CDT Legal Sex Female 10:21 PM CDT Gender Identity Female 06/05/2023 10:27 AM CDT Sexual Orientation Not on file documented as of this encounter Miscellaneous Notes * Telephone Encounter - Monica Marcelo RN - 06/17/2024 8:44 AM CDT Medication refilled and signed per [facility] chronic medication standing order for pediatric and adult patients. documented in this encounter Plan of Treatment Upcoming Encounters Date Type Department Care Team (Latest Contact Info) Description 12/30/2024 8:00 AM CDT Hospital Encounter [facility] Gi Lab Periop 1 [place] [address] Kwadwo Montalvo MD 2 [place] [address] [place] [address] 12/30/2024 8:00 AM CDT - 12/30/2024 8:30 AM CDT Surgery [facility] Gi Lab Periop 1 [place] [address] Kwadwo Montalvo MD [address] [facility] [address] [place] [address] EGD 01/03/2025 11:30 AM CDT [facility] Res[facility] 1 [place] [address] Robert Mae MD #2 [place] [address] Discharge Disposition: Discharged to home or Selfcare 01/28/2025 10:45 AM CDT Office Visit [facility] - Pulmonology & Sleep Medicine - [place] #2 [place] [address] Robert Mae MD #2 [place] [address] 03/11/2025 10:30 AM CDT Office Visit [facility] - Neurology - [place] #2 [place] [address] Maryann El APRN, ASSISTANT PROFESSOR OF NURSING #2 [place] [address] Scheduled Procedures Name Priority Associated Diagnoses Date/Ti me EGD ULCER OF THE ESOPHAGUS 12/30/2024 8:00 AM CDT documented as of this encounter Visit Diagnoses Not on filedocumented in this encounter Additional Health Concerns Infection Onset Date Last Indicated Resolved Time COVID - 19 09/03/2024 09/03/2024 09/03/2024 9:25 PM PRECISE WINDER documented as of this encounter Care Teams Photographer Finish Relationship Specialty Start Date End Date Micky Dickson MD [address] [facility] [address] CASTRO [address] [place] [address] PCP - General Family Medicine 09/25/23 07/04/24 Silva Vicente MD [address] [place] [address] DR CASTRO [address] [place] [address] PCP - General Family Medicine 07/05/24 Mac Sher MD #2 [place] [address] Consulting Physician Neurology 09/15/15 Robert Mae MD #2 [place] [address] Consulting Physician Pulmonary Disease 10/27/22 Maryann El APRN, ASSISTANT PROFESSOR OF NURSING #2 [place] [address] Nurse Practitioner Advanced Practice Nurse 12/21/22 Germania Navarro APRN, POLYETHYLENE BAG MACHINE OPERATOR #2 [place] [address] Nurse Practitioner Advanced Practice Nurse 10/04/23 Leny Morales MD #2 [place] [address] Consulting Physician Gastroenterology 01/19/23 documented as of this encounter
--- OUTSIDE RECORDS SUMMARY | 2024-12-17 14:03 | XMS_ITS | Encounter Summary ---
Author Organization [facility] Address [address] [place] [address] Phone Care Team Providers Care Special Machine Operator Name Role Phone Mac Sher MD Unavailable [phone] Robert Mae MD Unavailable Maryann El APRN, COLLECTION TELLER Unavailable [phone] Germania Navarro APRN, GREASE MAN Unavailable Leny Morales MD Unavailable [phone] Silva Vicente MD Primary Care Provider [phone] Reason for Visit * Reason Comments Medication Refill Encounter Details Date Type Department Care Team (Late st Contact Info) Description 08/13/2024 [facility]ill [facility] - Gastroenterology - [place] #2 [place] [address] Germania Navarro APRN, GREASE MAN #2 [place] [address] Medication Refill Social History Tobacco Use Types Packs/Day Years Used Date Smoking Tobacco: Former Cigarettes 0.5 25 Smokeless Tobacco: Never Comments:occassional Alcohol Use Standard Drinks/Week Comments Not Currently 0 (1 standard drink = 0.6 oz pur e alcohol) [facility] Utilities Answer Date Recorded In the [...] declined 04/16/2024 How often do you attend anglican or scientologist serv ices? Patient declined 04/16/2024 Do you belong to any clubs o r organizations such as anglican groups, unions, fraternal or athletic groups, or [...] medical care, and heating? Patient declined 04/16/2024 [facility] - Occupational [...] any time in the past 12 m [facility], were you homeless or living in a half-way (including now)? Patient declined 04/16/2024 Sexually Active Control Partners Comments Not Currently Comments No Sex and Gender Information Value Date Recorded Sex Assigned at Female 06/05/2023 10:27 AM CDT Legal Sex Female 10:21 PM CDT Gender Identity Female 06/05/2023 10:27 AM CDT Sexual Orientation Not on file documented as of this encounter Miscellaneous Notes * Telephone Encounter - Monica Marcelo RN - 08/13/2024 8:53 AM CDT Medication refilled and signed per [facility] chronic medication standing order for pediatric and adult patients. documented in this encounter Plan of Treatment Upcoming Encounters Date Type Department Care Team (Latest Contact Info) Description 12/30/2024 8:00 AM CDT Hospital Encounter [facility] Gi Lab Periop 1 [facility] [place] [address] Kwadwo Montalvo MD 2 [facility] [place] [facility] [address] [place] [address] 12/30/2024 8:00 AM CDT - 12/30/2024 8:30 AM CDT Surgery [facility] Gi Lab Periop 1 [place] [address] Kwadwo Montalvo MD [address] [address] EGD 01/03/2025 11:30 AM CDT Appointment [facility] Respiratory Therapy 1 [place] [address] Roebrt Mae MD #2 [place] [address] Discharge Disposition: Discharged to home or Selfcare 01/28/2025 10:45 AM CDT Office Visit [facility] - Pulmonology & Sleep Medicine [facility] #2 [place] [address] Robert Mae MD #2 [place] [address] 03/11/2025 10:30 AM CDT Office Visit [facility] - Neurology - [place] #2 [place] [address] Maryann El, ARCHITECT INTERN, COLLECTION TELLER #2 [place] [address] Scheduled Procedures Name Priority Associated Diagnoses Date/Ti me EGD ULCER OF THE ESOPHAGUS 12/30/2024 8:00 AM CDT documented as of this encounter Visit Diagnoses Not on filedocumented in this encounter Additional Health Concerns Infection Onset Date Last Indicated Resolved Time COVID - 19 09/03/2024 09/03/2024 09/03/2024 9:25 PM 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 documented as of this encounter Care Teams Special Machine Operator Relationship Specialty Start Date End Date Silva Vicente MD [address] [place] [address] [facility] [place] [address] PCP - General Family Medicine 07/05/24 Mac Sher MD #2 [place] [address] Consulting Physician Neurology 09/15/15 Robert Mae MD #2 [place] [address] Consulting Physician Pulmonary Disease 10/27/22 Maryann El APRN, COLLECTION TELLER #2 [place] [address] Nurse Practitioner Advanced Practice Nurse 12/21/22 Germania Navarro APRN, GREASE MAN [address]2 [place] [address] Nurse Practitioner Advanced Practice Nurse 10/04/23 Leny Morales MD #2 [place] [address] Consulting Physician Gastroenterology 01/19/23 documented as of this encounter
--- OUTSIDE RECORDS SUMMARY | 2024-12-17 14:03 | XMS_ITS | Encounter Summary ---
Author Organization [facility] Address [address] [place] [address] Phone Care Team Providers Care Cabin Agent Name Role Phone Mac Sher MD Unavailable [phone] Winifred Armstrong FIELD SERVICE TECHNICIAN POULTRY, FLOOR COVERING PRINTER ASSISTANT Primary Care Provider Micky Dickson MD Primary Care Provider Robert Mae MD Unavailable Maryann El APRN, SINGLE STROKE PREFORMER Unavailable + [phone] Germania Navarro APRN, FLOOR COVERING PRINTER ASSISTANT Unavailable Leny Morales MD Unavailable [phone] Silva Vicente MD Primary Care Provider [phone] Reason for Visit * Reason Comments Medication Refill Encounter Details Date Type Department Care Team (Late st Contact Info) Description 08/14/2023 Refill [facility] - Neurology - [place] #2 [place] [address] Maryann El, CESAR, SINGLE STROKE PREFORMER #2 [place] [address] Medication Refill Social History Tobacco Use Types [...] Telephone Encounter - Manisha Chavez RN - 08/14/2023 12:30 PM CDT Medication failed the protocol, provider to review and approve the medication order if appropriate. Requested Prescriptions Pending Prescriptions Disp Refills primidone (MYSOLINE) 250 MG Tablet [Pharmacy Med Name: Primidone 250 MG Oral Tablet] 120 Tablet 0 Sig: Take 1 Tablet by mouth nightly. Not Delegated - Anticonvulsants Excluding Benzodiazepines Protocol Failed - 08/14/2023 12:09 PM Failed - This refill cannot be delegated Passed - Visit with relevant provider in past 12 months or upcoming 90 days Recent Visits Date Type Provider Dept 05/26/23 Procedure Visit [facility] [place] 05/09/23 Telemedicine Mac Sher MD [facility] [place] [facility] 03/01/23 Procedure Visit Mac Sher MD [place] [facility] 02/20/23 Office Visit Maryann El APRN SINGLE STROKE PREFORMER [facility] [place] 12/21/22 Office Visit Maryann El APRN, SINGLE STROKE PREFORMER [facility] [place] [facility] 12/09/22 Procedure Visit Mac Sher MD [facility] [place] 09/02/22 Procedure Visit Mac Sher MD [facility] Showing recent visits within past 365 days and meeting all other requirements Future Appointments Date Type Provider Dept 08/25/23 Appointment Mca Sher MD [facility] Showing future appointments within next 90 days and meeting all other requirements documented in this encounter Plan of Treatment Upcoming Encounters Date Type Department Care Team (Latest Contact Info) Description 12/30/2024 8:00 AM CDT Hospital Encounter [facility] Gi Lab Periop 1 [place] [address] Kwadwo Montalvo MD 2 [place] [facility] [address] [place] [address] 12/30/2024 8:00 AM CDT - 12/30/2024 8:30 AM CDT Surgery [facility] Gi Lab Periop 1 [place] [address] Kwadwo Montalvo MD 2 [place] [facility] [address] [place] [place] [address] EGD 01/03/2025 11:30 AM CDT Appointment [facility] Respiratory Therapy 1 [place] [address] Robert Mae MD #2 [place] [address] Discharge Disposition: Discharged to home or Selfcare 01/28/2025 10:45 AM CDT Office Visit [facility] - Pulmonology & Sleep Medicine - [place] #2 [place] [address] Robert Mae MD #2 [place] [address] 03/11/2025 10:30 AM CDT Office Visit [facility] - Neurology - [place] #[address] [place] [address] Maryann El, FIELD SERVICE TECHNICIAN POULTRY, SINGLE STROKE PREFORMER #2 [place] [address] Scheduled Procedures Name Priority Associated Diagnoses Date/Ti me EGD ULCER OF THE ESOPHAGUS 12/30/2024 8:00 AM CDT documented as of this encounter Visit Diagnoses Diagnosis Essential tremor Essential and other specified forms of tremor documented in this encounter Additional Health Concerns Infection Onset Date Last Indicated Resolved Time COVID - 19 09/03/2024 09/03/2024 09/03/2024 9:25 PM SUBWAY GUARD documented as of this encounter Care Teams Cabin Agent Relationship Specialty Start Date End Date Winifred Armstrong, FIELD SERVICE TECHNICIAN POULTRY, FLOOR COVERING PRINTER ASSISTANT [address] [place] [address] PCP - General Advanced Practice Nurse 10/17/19 Micky Dickson MD [address] [place] [address] DR CASTRO [address] [place] [address] PCP - General Family Medicine 09/25/23 07/04/24 Silva Vicente MD [address] [place] [address] DR CASTRO [address] [place] [address] PCP - General Family Medicine 07/05/24 Mac Sher MD #2 [place] [address] Consulting Physician Neurology 09/15/15 Robert Mae MD #2 [place] [address] Consulting Physician Pulmonary Disease 10/27/22 Maryann El APRN, SINGLE STROKE PREFORMER #2 [place] [address] Nurse Practitioner Advanced Practice Nurse 12/21/22 Germania Navarro APRN, FLOOR COVERING PRINTER ASSISTANT #2 [place] [address] Nurse Practitioner Advanced Practice Nurse 10/04/23 Leny Morales MD #2 [place] [address] Consulting Physician Gastroenterology 01/19/23 documented as of this encounter
--- OUTSIDE RECORDS SUMMARY | 2024-12-17 14:03 | XMS_ITS | Encounter Summary ---
Author Organization [facility] Address [address] [place] [address] Phone Care Team Providers Care Staff Interpreter Name Role Phone Mac Sher MD Unavailable [phone] Winifred Armstrong NEWSPAPER VENDOR, PHARMACIST AIDE Primary Care Provider Micky Dickson MD Primary Care Provider Robert Mae MD Unavailable Maryann El APRN, POWER TRANSFORMER REPAIR SUPERVISOR Unavailable + [phone] Germania Navarro APRN, PHARMACIST AIDE Unavailable Leny Moralse MD Unavailable [phone] Silva Vicente MD Primary Care Provider [phone] Reason for Visit * Reason Comments Medication Refill Encounter Details Date Type Department Care Team (Late st Contact Info) Description 08/17/2023 Refill [facility] - [facility]rology - [place] #2 [place] [address] Mac Sher MD #2 [place] [address] Medication Refill Social History Tobacco [...] Telephone Encounter - Manisha Chavez RN - 08/17/2023 10:41 AM CDT Medication failed the protocol, provider to review and approve the medication order if appropriate. Requested Prescriptions Pending Prescriptions Disp Refills Qulipta 60 MG Tablet [Pharmacy Med Name: Qulipta 60 MG Oral Tablet] 30 Tablet 2 Sig: Take 1 tablet by mouth once daily Not Delegated - Off Protocol Failed - 08/17/2023 9:19 AM Failed - This refill cannot be delegated Passed - Visit with relevant provider in past 12 months or upcoming 90 days Recent Visits Date Type Provider Dept 05/26/23 Procedure Visit [facility] [place] 05/09/23 Telemedicine Mac Sher MD [facility] [place] 03/01/23 Procedure Visit Mac Sher MD [facility] [place] 02/20/23 Office Visit Maryann El APRN, CNS [facility] Neu[facility] [place] 12/21/22 Office Visit Maryann El APRN, CNS [facility] [place] [place] [facility] [place] 12/09/22 Procedure Visit Mac Sher MD [facility] Neu[facility] [place] 09/02/22 Procedure Visit Mac Sher MD [facility] [place] Showing recent visits within past 365 days and meeting all other requirements Future Appointments Date Type Provider Dept 08/25/23 Appointment Mac Sher MD [facility] Showing future appointments within next 90 days and meeting all other requirements documented in this encounter Plan of Treatment Upcoming Encounters Date Type Department Care Team (Latest Contact Info) Description 12/30/2024 8:00 AM CDT Hospital Encounter [facility] Gi Lab Periop 1 [place] [address] Kwadwo Montalvo MD 2 [facility] [address] [address] 12/30/2024 8:00 AM CDT - 12/30/2024 8:30 AM CDT Surgery [facility] Gi Lab Periop 1 [place] [address] Kwadwo Montalvo MD 2 [facility] [address] [address] EGD 01/03/2025 11:30 AM CDT Appointment [facility] Respiratory Therapy 1 [place] [address] Robert Mae MD #2 [place] [address] Discharge Disposition: Discharged to home or Selfcare 01/28/2025 10:45 AM CDT Office Visit [facility] - Pulmonology & Sleep Medicine - [place] #2 [place] [address] Robert Mae MD #2 [place] [address] 03/11/2025 10:30 AM CDT Office Visit [facility] - Neurology - [place] #2 [place] [address] Maryann El, NEWSPAPER VENDOR, POWER TRANSFORMER REPAIR SUPERVISOR #2 [place] [address] Scheduled Procedures Name Priority Associated Diagnoses Date/Ti [...] - 19 09/03/2024 09/03/2024 09/03/2024 9:25 PM TELLER SUPERVISOR documented as of this encounter Care Teams Staff Interpreter Relationship Specialty Start Date End Date Winifred Armstrong, NEWSPAPER VENDOR, PHARMACIST AIDE [address] [place] [address] PCP - General Advanced Practice Nurse 10/17/19 Micky Dickson MD [address] [place] [address] DR CASTRO [address] [place] [address] PCP - General Family Medicine 09/25/23 07/04/24 Silva Vicente MD [address] [place] [address] DR CASTRO [address] [place] [address] PCP - General Family Medicine 07/05/24 Mac Sher MD #2 [place] [address] Consulting Physician Neurology 09/15/15 Robert Mae MD #2 [place] [address] Consulting Physician Pulmonary Disease 10/27/22 Maryann El APRN, POWER TRANSFORMER REPAIR SUPERVISOR #2 [place] [address] Nurse Practitioner Advanced Practice Nurse 12/21/22 Germania Navarro APRN, PHARMACIST AIDE #2 [place] [address] Nurse Practitioner Advanced Practice Nurse 10/04/23 Leny Morales MD #2 [place] [address] Consulting Physician Gastroenterology 01/19/23 documented as of this encounter
--- OUTSIDE RECORDS SUMMARY | 2024-12-17 14:03 | XMS_ITS | Encounter Summary ---
Author Organization [facility] Address [address] [place] [address] Phone Care Team Providers Care Clothespin Machine Operator Name Role Phone Mac Sher MD Unavailable [phone] Robert Mae MD Unavailable Maryann El APRN, WRITER Unavailable [phone] Germania Navarro APRN, ONLINE MERCHANT Unavailable Leny Morales MD Unavailable [phone] Silva Vicente MD Primary Care Provider Reason for Visit * Reason Comments Medication Refill Encounter Details Date Type Department Care Team (Late st Contact Info) Description 07/23/2024 Refill [facility] - Gastroenterology - [place] #2 [place] [phone] Germania Navarro APRN, ONLINE MERCHANT #2 [place] [address] Medication Refill Social History Tobacco Use Types Packs/Day Years Used Date Smoking Tobacco: Former Cigarettes 0.5 25 Smokeless Tobacco: Never Comments:occassional Alcohol Use Standard Drinks/Week Comments Not Currently 0 (1 standard drink = 0.6 oz pur e alcohol) [facility] Utilities Answer Date Recorded In the [...] declined 04/16/2024 How often do you attend druze or episcopalian serv ices? Patient declined 04/16/2024 Do you belong to any clubs o r organizations such as druze groups, unions, fraternal or athletic groups, or [...] medical care, and heating? Patient declined 04/16/2024 [facility] - [...] any time in the past 12 [facility], were you homeless or living in a fdc (including now)? Patient declined 04/16/2024 Sexually Active Control Partners Comments Not Currently Comments No Sex and Gender Information Value Date Recorded Sex Assigned at Female 06/05/2023 10:27 AM CDT Legal Sex Female 10:21 PM CDT Gender Identity Female 06/05/2023 10:27 AM CDT Sexual Orientation Not on file documented as of this encounter Miscellaneous Notes * Telephone Encounter - Monica Marcelo RN - 07/23/2024 1:12 PM CDT Medication refilled and signed per [facility] chronic medication standing order for pediatric and adult patients. documented in this encounter Plan of Treatment Upcoming Encounters Date Type Department Care Team (Latest Contact Info) Description 12/30/2024 8:00 AM CDT Hospital Encounter [facility] Gi Lab Periop 1 [facility] [place] [address] Kwadwo Montalvo MD 2 [facility] JAYE [address] [address] 12/30/2024 8:00 AM CDT - 12/30/2024 8:30 AM CDT Surgery [facility] Gi Lab Periop 1 [place] [address] Kwadwo Montalvo MD [address] [address] EGD 01/03/2025 11:30 AM CDT Appointment [facility] Respiratory Therapy 1 [place] [address] Robert Mae MD #2 [place] [address] Discharge Disposition: Discharged to home or Selfcare 01/28/2025 10:45 AM CDT Office Visit [facility] - Pulmonology & Sleep Medicine [facility] #2 [place] [address] Robert Mae MD #2 [place] [address] 03/11/2025 10:30 AM CDT Office Visit [facility] - Neurology - [place] #2 [place] [address] Maryann El, STEAM AND GAS TURBINES ASSEMBLER, WRITER #2 [place] [address] Scheduled Procedures Name Priority Associated Diagnoses Date/Ti me EGD ULCER OF THE ESOPHAGUS 12/30/2024 8:00 AM CDT documented as of this encounter Visit Diagnoses Not on filedocumented in this encounter Additional Health Concerns Infection Onset Date Last Indicated Resolved Time COVID - 19 09/03/2024 09/03/2024 09/03/2024 9:25 PM DIRECT MARKETING SPECIALIST documented as of this encounter Care Teams Clothespin Machine Operator Relationship Specialty Start Date End Date Silva Vicente MD [address] [place] [address] [facility] [place] [address] PCP - General Family Medicine 07/05/24 Mac Sher MD #2 [place] [address] Consulting Physician Neurology 09/15/15 Robert Mae MD #2 [place] [address] Consulting Physician Pulmonary Disease 10/27/22 Maryann El APRN, WRITER #2 [place] [address] Nurse Practitioner Advanced Practice Nurse 12/21/22 Germania Navarro APRN, ONLINE MERCHANT #2 [place] [address] Nurse Practitioner Advanced Practice Nurse 10/04/23 Leny Morales MD #2 [place] [address] Consulting Physician Gastroenterology 01/19/23 documented as of this encounter
--- OUTSIDE RECORDS SUMMARY | 2024-12-17 14:03 | XMS_ITS | Encounter Summary ---
Author Organization [facility] Address [address] [place] [address] Phone Care Team Providers Care Security Shift Supervisor Name Role Phone Mac Sher MD Unavailable [phone] Winifred Armstrong RIVET DRIVER, BURN TABLE OPERATOR Primary Care Provider Micky Dickson MD Primary Care Provider Robert Mae MD Unavailable Maryann El APRN, MEAT COUNTER WORKER Unavailable + [phone] Germania Navarro APRN, BURN TABLE OPERATOR Unavailable Leny Morales MD Unavailable [phone] Silva Vicente MD Primary Care Provider [phone] Reason for Visit * Reason Comments Medication Refill Encounter Details Date Type Department Care Team (Late st Contact Info) Description 07/15/2023 Refill [facility] - Gastroenterology - [place] #2 [place] [phone] Germania Navarro APRN, BURN TABLE OPERATOR #2 [place] [address] Medication Refill Social History Tobacco Use Types [...] Telephone Encounter - Monica Marcelo RN - 07/17/2023 9:17 AM CDT Medication [facility] and signed [facility] chronic medication standing order for pediatric and adult patients. documented in this encounter Plan of Treatment Upcoming Encounters Date Type Department Care Team (Latest Contact Info) Description 12/30/2024 8:00 AM CDT [facility] 1 [place] [address] Kwadwo Montalvo MD 2 [facility] [address] [address] 12/30/2024 8:00 AM CDT - 12/30/2024 8:30 AM CDT [facility] 1 [facility] [place] [address] Kwadwo Montalvo MD 2 [facility] [address] [address] EGD 01/03/2025 11:30 AM CDT [facility] 1 [facility] [place] [address] Robert Mae MD #2 [place] [address] Discharge Disposition: Discharged to home or Selfcare 01/28/2025 10:45 AM CDT Office Visit [facility] - Pulmonology & Sleep Medicine - [place] #2 [place] [address] Robert Mae MD #2 [place] [address] 03/11/2025 10:30 AM CDT [facility] [place] #2 [place] [address] Maryann El RIVET DRIVER, MEAT COUNTER WORKER #2 [place] [address] Scheduled Procedures Name Priority Associated Diagnoses Date/Ti me EGD ULCER OF THE ESOPHAGUS 12/30/2024 8:00 AM CDT documented as of this encounter Visit Diagnoses Not on filedocumented in this encounter Additional Health Concerns Infection Onset Date Last Indicated Resolved Time COVID - 19 09/03/2024 09/03/2024 09/03/2024 9:25 PM RAILCAR MECHANIC documented as of this encounter Care Teams Security Shift Supervisor Relationship Specialty Start Date End Date Winifred Armstrong APRN, BURN TABLE OPERATOR [address] [place] [address] PCP - General Advanced Practice Nurse 10/17/19 Micky Dickson MD [address] [place] [address] [address] [place] [address] PCP - General Family Medicine 09/25/23 07/04/24 Silva Vicente MD [address] [place] [address] [address] PCP - General Family Medicine 07/05/24 Mac Sher MD #2 [place] [address] Consulting Physician Neurology 09/15/15 Robert Mae MD #2 [place] [address] Consulting Physician Pulmonary Disease 10/27/22 Maryann El APRN, MEAT COUNTER WORKER #[address] [place] [address] Nurse Practitioner Advanced Practice Nurse 12/21/22 Germania Navarro APRN, BURN TABLE OPERATOR #2 [place] [address] Nurse Practitioner Advanced Practice Nurse 10/04/23 Leny Morales MD #2 [place] [address] Consulting Physician Gastroenterology 01/19/23 documented as of this encounter
--- OUTSIDE RECORDS SUMMARY | 2024-12-17 14:03 | XMS_ITS | Encounter Summary ---
Author Organization [facility] Address [address] [place] [address] Phone Care Team Providers Care Denture Contour Wire Specialist Name Role Phone Mac Sher MD Unavailable [phone] Winifred Armstrong PLASTERER ROUGH, CHURCH HISTORY TEACHER Primary Care Provider Mciky Dickson MD Primary Care Provider Robert Mae MD Unavailable Maryann El APRN, DRIVEWAY ATTENDANT Unavailable + [phone] Germania Navarro APRN, CHURCH HISTORY TEACHER Unavailable Leny Morales MD Unavailable [phone] Silva Vicente MD Primary Care Provider [phone] Reason for Visit * Reason Comments Medication Refill Encounter Details Date Type Department Care Team (Late st Contact Info) Description 07/19/2023 Refill [facility] - Gastroenterology - [place] #2 [place] [phone] Leny Morales MD #2 [place] [address] Medication Refill Social History Tobacco Use Types [...] Telephone Encounter - Monica Marcelo RN - 07/19/2023 9:10 AM CDT Medication [facility] medication standing order for pediatric and adult patients. documented in this encounter Plan of Treatment Upcoming Encounters Date Type Department Care Team (Latest Contact Info) Description 12/30/2024 8:00 AM CDT [facility] 1 [place] [address] Kwadwo Montalvo MD 2 [facility] [address] [address] 12/30/2024 8:00 AM CDT - 12/30/2024 8:30 AM CDT [facility] 1 [place] [address] Kwadwo Montalvo MD 2 [facility] [address] [address] EGD 01/03/2025 11:30 AM CDT [facility] 1 [facility] [place] [address] Robert Mae MD #2 [place] [address] Discharge Disposition: Discharged to home or Selfcare 01/28/2025 10:45 AM CDT Office Visit [facility] - Pulmonology & Sleep Medicine - [place] #2 [place] [address] Robert Mae MD #2 [place] [address] 03/11/2025 10:30 AM CDT Office Visit [facility] - Neurology - [place] #2 [place] [address] Maryann El APRN, DRIVEWAY ATTENDANT #2 [place] [address] Scheduled Procedures Name Priority Associated Diagnoses Date/Ti me EGD ULCER OF THE ESOPHAGUS 12/30/2024 8:00 AM CDT documented as of this encounter Visit Diagnoses Not on filedocumented in this encounter Additional Health Concerns Infection Onset Date Last Indicated Resolved Time COVID - 19 09/03/2024 09/03/2024 09/03/2024 9:25 PM NAPHTHALENE STILL OPERATOR documented as of this encounter Care Teams Denture Contour Wire Specialist Relationship Specialty Start Date End Date Winifred Armstrong, PLASTERER ROUGH, CHURCH HISTORY TEACHER [address] [place] [address] PCP - General Advanced Practice Nurse 10/17/19 Micky Dickson MD [address] [place] [address] [address] [place] [address] PCP - General Family Medicine 09/25/23 07/04/24 Silva Vicente MD [address] [place] [address] [address] PCP - General Family Medicine 07/05/24 Mac Sher MD #2 [place] [address] Consulting Physician Neurology 09/15/15 Robert Mae MD #2 [place] [address] Consulting Physician Pulmonary Disease 10/27/22 Maryann El APRN, DRIVEWAY ATTENDANT #2 [place] [address] Nurse Practitioner Advanced Practice Nurse 12/21/22 Germania Navarro APRN, CHURCH HISTORY TEACHER #2 [place] [address] Nurse Practitioner Advanced Practice Nurse 10/04/23 Leny Morales MD #2 [place] [address] Consulting Physician Gastroenterology 01/19/23 documented as of this encounter
--- OUTSIDE RECORDS SUMMARY | 2024-12-17 14:03 | XMS_ITS | Encounter Summary ---
Author Organization [facility] Address [address] [place] [address] Phone Care Team Providers Care [employer] Name Role Phone Mac Sher MD Unavailable [phone] Micky Dickson MD Primary Care Provider Robert Mae MD Unavailable Maryann El APRN, CUSTOMER OPERATIONS SPECIALIST Unavailable + [phone] Germania Navarro APRN, GRAB OPERATOR Unavailable Leny Morales MD Unavailable [phone] Silva Vicente MD Primary Care Provider [phone] Reason for Visit * Reason Comments Medication Refill Encounter Details Date Type Department Care Team (Late st Contact Info) Description 09/29/2023 Refill [facility] - Gastroenterology - [place] #2 [place] [address] Joann Bowers, NAVEED [address] [place] [address] Medication Refill Social History Tobacco Use Types [...] Telephone Encounter - Monica Marcelo RN - 10/02/2023 2:24 PM ELECTRONIC DEVICE REPAIRER Patient requesting refill too soon. Medication refused. TRONIC DEVICE REPAIRER documented in this encounter Plan of Treatment Upcoming Encounters Date Type Department Care Team (Latest Contact Info) Description 12/30/2024 8:00 AM CDT [facility] 1 [place] [address] Kwadwo Montalvo MD [address] [address] 12/30/2024 8:00 AM CDT - 12/30/2024 8:30 AM CDT [facility] 1 [place] [address] Kwadwo Montalvo MD 2 [facility] [address] [address] EGD 01/03/2025 11:30 AM CDT [facility] Res[facility] 1 [place] [address] Robert Mae MD #2 [place] [address] Discharge Disposition: Discharged to home or Selfcare 01/28/2025 10:45 AM CDT Office Visit [facility] - Pulmonology & Sleep Medicine - [place] #2 [place] [address] Robert Mae MD #2 [place] [address] 03/11/2025 10:30 AM CDT [facility] [place] #2 [place] [address] Maryann El APRN, CUSTOMER OPERATIONS SPECIALIST #2 [place] [address] Scheduled Procedures Name Priority Associated Diagnoses Date/Ti me EGD ULCER OF THE ESOPHAGUS 12/30/2024 8:00 AM CDT documented as of this encounter Visit Diagnoses Not on filedocumented in this encounter Additional Health Concerns Infection Onset Date Last Indicated Resolved Time COVID - 19 09/03/2024 09/03/2024 09/03/2024 9:25 PM ELECTRONIC DEVICE REPAIRER documented as of this encounter Care Teams [employer] Relationship Specialty Start Date End Date Micky Dickson MD [address] [place] [address] [address] [place] [address] PCP - General Family Medicine 09/25/23 07/04/24 Silva Vicente MD [address] [place] [address] [address] [place] [address] PCP - General Family Medicine 07/05/24 Mac Sher MD #2 [place] [address] Consulting Physician Neurology 09/15/15 Robert Mae MD #2 [place] [address] Consulting Physician Pulmonary Disease 10/27/22 Maryann El APRN, CUSTOMER OPERATIONS SPECIALIST #2 [place] [address] Nurse Practitioner Advanced Practice Nurse 12/21/22 Germania Navarro APRN, GRAB OPERATOR #[address] [place] [address] Nurse Practitioner Advanced Practice Nurse 10/04/23 Leny Morales MD #2 [place] [address] Consulting Physician Gastroenterology 01/19/23 documented as of this encounter
--- OUTSIDE RECORDS SUMMARY | 2024-12-17 14:03 | XMS_ITS | Encounter Summary ---
Author Organization [facility] Address [address] [place] [address] Phone Care Team Providers Care Asset Protection Associate Name Role Phone Mac Sher MD Unavailable [phone] Winifred Armstrong ENTRY LEVEL PROJECT COORDINATOR, SCHEDULING ANALYST Primary Care Provider Micky Dickson MD Primary Care Provider Robert Mae MD Unavailable Maryann El APRN, MANUFACTURERS AGENT Unavailable + [phone] Germania Navarro APRN, SCHEDULING ANALYST Unavailable Leny Morales MD Unavailable [phone] Silva Vicente MD Primary Care Provider [phone] Reason for Visit * Reason Comments Medication Refill Encounter Details Date Type Department Care Team (Late st Contact Info) Description 07/13/2023 Refill [facility] - [place] #2 [place] [address] Mac Sher MD #2 [place] [address] Medication Refill Social History Tobacco [...] Telephone Encounter - Manisha Chavez RN - 07/13/2023 8:07 AM CDT Medication failed the protocol, provider to review and approve the medication order if appropriate. Requested Prescriptions Pending Prescriptions Disp Refills Topiramate 50 MG Tablet [Pharmacy Med Name: Topiramate 50 MG Oral Tablet] 60 Tablet 3 Sig: Take 1 tablet by mouth twice daily Not Delegated - Anticonvulsants Excluding Benzodiazepines Protocol Failed - 07/13/2023 5:15 AM Failed - This refill cannot be delegated Passed - Visit with relevant provider in past 12 months or upcoming 90 days Recent Visits Date Type Provider Dept 05/26/23 Procedure Visit Mac Sher MD [facility] Neurology [facility] 05/09/23 Telemedicine Mac Sher MD [facility] Neurology [facility] [place] 03/01/23 Procedure Visit Mac Sher MD [facility] Neurology [facility] Stanley Cornelio 02/20/23 Office Visit Maryann El APRN, CNS [facility] Neurology [facility] [place] 12/21/22 Office Visit Maryann El APRN, CNS [facility] Neurology [facility] Stanley'tess Cee 12/09/22 Procedure Visit Mac Sher MD [facility] Neurology [place] [facility] 09/02/22 Procedure Visit Mac Sher MD [facility] Neurology [facility] recent visits within past 365 days and meeting all other requirements Future Appointments Date Type Provider Dept 08/25/23 Appointment Mac Sher MD [facility] Neurology [facility] Showing future appointments within next 90 days and meeting all other requirements documented in this encounter Plan of Treatment Upcoming Encounters Date Type Department Care Team (Latest Contact Info) Description 12/30/2024 8:00 AM CDT Hospital Encounter [facility] Gi Lab Periop 1 [place] [address] Kwadwo Montalvo MD 2 [facility] [address] [address] 12/30/2024 8:00 AM CDT - 12/30/2024 8:30 AM CDT Surgery [facility] Gi Lab Periop [address] [place] [address] Kwadwo Montalvo MD 2 [facility] [address] [address] EGD 01/03/2025 11:30 AM CDT Appointment [facility] Respiratory Therapy [address] [place] [address] Robert Mae MD #2 [place] [address] Discharge Disposition: Discharged to home or Selfcare 01/28/2025 10:45 AM CDT Office [facility] - Pulmonology & Sleep Medicine - [place] #2 [place] [address] Robert Mae MD #2 [place] [address] 03/11/2025 10:30 AM CDT [facility] Visit [facility] - Neurology - [place] #2 [place] [address] Maryann El, ENTRY LEVEL PROJECT COORDINATOR, MANUFACTURERS AGENT #[address] [place] [address] Scheduled Procedures Name Priority Associated Diagnoses Date/Ti me EGD ULCER OF THE ESOPHAGUS 12/30/2024 8:00 AM CDT documented as of this encounter Visit Diagnoses Not on filedocumented in this encounter Additional Health Concerns Infection Onset Date Last Indicated Resolved Time COVID - 19 09/03/2024 09/03/2024 09/03/2024 9:25 PM HEAVY EQUIPMENT SERVICE MANAGER documented as of this encounter Care Teams Asset Protection Associate Relationship Specialty Start Date End Date Winifred Armstrong, ENTRY LEVEL PROJECT COORDINATOR, SCHEDULING ANALYST [address] [place] [address] PCP - General Advanced Practice Nurse 10/17/19 Micky Dickson MD [address] [facility] [address] CASTRO [address] [place] [address] PCP - General Family Medicine 09/25/23 07/04/24 Silva Vicente MD [address] [place] [address] DR CASTRO [address] [place] [address] PCP - General Family Medicine 07/05/24 Mac Sher MD #2 [place] [address] Consulting Physician Neurology 09/15/15 Robert Mae MD #2 [place] [address] Consulting Physician Pulmonary Disease 10/27/22 Maryann El APRN, MANUFACTURERS AGENT #2 [place] [address] Nurse Practitioner Advanced Practice Nurse 12/21/22 Germania Navarro APRN, SCHEDULING ANALYST #2 [place] [address] Nurse Practitioner Advanced Practice Nurse 10/04/23 Leny Morales MD #2 [place] [address] Consulting Physician Gastroenterology 01/19/23 documented as of this encounter
--- OUTSIDE RECORDS SUMMARY | 2024-12-17 14:03 | XMS_ITS | Encounter Summary ---
Author Organization [facility] Address [address] [place] [address] Phone Care Team Providers Care School Services Officer Name Role Phone Mac Sher MD Unavailable [phone] Winifred Armstrong GROCERY DELIVERER, HAND FORMER Primary Care Provider Micky Dickson MD Primary Care Provider Robert Mae MD Unavailable Maryann El APRN, USER INTERFACE DESIGNER Unavailable + [phone] Germania Navarro APRN, HAND FORMER Unavailable Leny Morales MD Unavailable [phone] Silva Vicente MD Primary Care Provider [phone] Reason for Visit * Reason Comments Medication Refill Encounter Details Date Type Department Care Team (Late st Contact Info) Description 06/22/2023 Refill [facility] - Gastroenterology - [place] #2 [place] [phone] Germania Navarro APRN, HAND FORMER #2 [place] [address] Medication Refill Social History Tobacco Use Types [...] suspected to have Coronavirus/COVID-19? No / Unsure 06/05/2023 10:26 AM CDT documented as of this encounter Miscellaneous Notes * Telephone Encounter - Monica Marcelo RN - 06/22/2023 1:27 PM CDT Medication [facility] medication standing order for pediatric and adult patients. documented in this encounter Plan of Treatment Upcoming Encounters Date Type Department Care Team (Latest Contact Info) Description 12/30/2024 8:00 AM CDT Hospital Encounter [facility] Gi Lab Periop 1 [place] [address] Kwadwo Montalvo MD 2 [facility] [address] [address] 12/30/2024 8:00 AM CDT - 12/30/2024 8:30 AM CDT [facility] Gi [facility] 1 [place] [address] Kwadwo Montalvo MD 2 [facility] [address] [address] EGD 01/03/2025 11:30 AM CDT Appoint[facility] Respiratory Therapy 1 [place] [address] Robert Mae MD #2 [place] [address] Discharge Disposition: Discharged to home or Selfcare 01/28/2025 10:45 AM CDT Office Visit [facility] - Pulmonology & Sleep Medicine [facility] #2 [place] [address] Robert Mae MD #2 [place] [address] 03/11/2025 10:30 AM CDT [facility] [place] #2 [place] [address] Maryann El APRN, USER INTERFACE DESIGNER #2 [place] [address] Scheduled Procedures Name Priority Associated Diagnoses Date/Ti me EGD ULCER OF THE ESOPHAGUS 12/30/2024 8:00 AM CDT documented as of this encounter Visit Diagnoses Not on filedocumented in this encounter Additional Health Concerns Infection Onset Date Last Indicated Resolved Time COVID - 19 09/03/2024 09/03/2024 09/03/2024 9:25 PM ELEVATOR MECHANIC documented as of this encounter Care Teams School Services Officer Relationship Specialty Start Date End Date Winifred Armstrong APRN, HAND FORMER [address] [place] [address] PCP - General Advanced Practice Nurse 10/17/19 Micky Dickson MD [address] [place] [address] [facility] [place] [address] PCP - General Family Medicine 09/25/23 07/04/24 Silva Vicente MD [address] [place] [address] [address] PCP - General Family Medicine 07/05/24 Mac Sher MD #2 [place] [address] Consulting Physician Neurology 09/15/15 Robert Mae MD #2 [place] [address] Consulting Physician Pulmonary Disease 10/27/22 Maryann El APRN, USER INTERFACE DESIGNER #2 [place] [address] Nurse Practitioner Advanced Practice Nurse 12/21/22 Germania Navarro APRN, HAND FORMER #2 [place] [address] Nurse Practitioner Advanced Practice Nurse 10/04/23 Leny Morales MD #2 [place] [address] Consulting Physician Gastroenterology 01/19/23 documented as of this encounter
--- OUTSIDE RECORDS SUMMARY | 2024-12-17 14:03 | XMS_ITS | Encounter Summary ---
Author Organization [facility] Address [address] [place] [address] Phone Care Team Providers Care Senior Asp Net Developer Name Role Phone Mac Sher MD Unavailable [phone] Winifred Armstrong LANDING SUPPORT SPECIALIST, MANAGER FLOAT Primary Care Provider Micky Dickson MD Primary Care Provider Robert Mae MD Unavailable Maryann El APRN, FIRE SAFETY INSPECTOR Unavailable + [phone] Germania Navarro APRN, MANAGER FLOAT Unavailable Leny Morales MD Unavailable [phone] Silva Vicente MD Primary Care Provider [phone] Reason for Visit * Reason Comments Medication Refill Encounter Details Date Type Department Care Team (Late st Contact Info) Description 08/15/2023 Refill [facility] - Gastroenterology - [place] #2 [place] [address] Germania Navarro APRN, MANAGER FLOAT #2 [place] [address] Medication Refill Social History Tobacco Use Types [...] Telephone Encounter - Monica Marcelo RN - 08/15/2023 9:49 AM CDT Medication refilled and signed [facility] medication standing order for pediatric and adult patients. documented in this encounter Plan of Treatment Upcoming Encounters Date Type Department Care Team (Latest Contact Info) Description 12/30/2024 8:00 AM CDT [facility] Gi [facility] 1 [place] [address] Kwadwo Montalvo MD 2 [facility] [address] [address] 12/30/2024 8:00 AM CDT - 12/30/2024 8:30 AM CDT [facility] [place] [address] Kwadwo Montalvo MD 2 [facility] [address] [address] EGD 01/03/2025 11:30 AM CDT [facility] 1 [facility] [place] [address] Robert Mae MD #2 [place] [address] Discharge Disposition: Discharged to home or Selfcare 01/28/2025 10:45 AM CDT Office Visit [facility] - Pulmonology & Sleep Medicine - [place] #2 [place] [address] Robert Mae MD #2 [place] [address] 03/11/2025 10:30 AM CDT [facility] - [place] #2 [place] [address] Maryann El LANDING SUPPORT SPECIALIST, FIRE SAFETY INSPECTOR #2 [place] [address] Scheduled Procedures Name Priority Associated Diagnoses Date/Ti me EGD ULCER OF THE ESOPHAGUS 12/30/2024 8:00 AM CDT documented as of this encounter Visit Diagnoses Not on filedocumented in this encounter Additional Health Concerns Infection Onset Date Last Indicated Resolved Time COVID - 19 09/03/2024 09/03/2024 09/03/2024 9:25 PM AUDIT DIRECTOR documented as of this encounter Care Teams Senior Asp Net Developer Relationship Specialty Start Date End Date Winifred Armstrong APRN, MANAGER FLOAT [address] [place] [address] PCP - General Advanced Practice Nurse 10/17/19 Micky Dickson MD [address] [place] [address] [address] [place] [address] PCP - General Family Medicine 09/25/23 07/04/24 Silva Vicente MD [address] [place] [address] [address] PCP - General Family Medicine 07/05/24 Mac Sher MD #2 [place] [address] Consulting Physician Neurology 09/15/15 Robert Mae MD #2 [place] [address] Consulting Physician Pulmonary Disease 10/27/22 Maryann El APRN, FIRE SAFETY INSPECTOR #2 [place] [address] Nurse Practitioner Advanced Practice Nurse 12/21/22 Germania Navarro APRN, MANAGER FLOAT #2 [place] [address] Nurse Practitioner Advanced Practice Nurse 10/04/23 Leny Morales MD #2 [place] [address] Consulting Physician Gastroenterology 01/19/23 documented as of this encounter
--- OUTSIDE RECORDS SUMMARY | 2024-12-17 14:03 | XMS_ITS | Encounter Summary ---
Author Organization [facility] Address [address] [place] [address] Phone Care Team Providers Care Tube Operator Name Role Phone Mac Sher MD Unavailable [phone] Micky Dickson MD Primary Care Provider Robert Mae MD Unavailable Maryann El APRN, ELECTRONIC TESTER Unavailable + [phone] Germania Navarro APRN, EDGE GRINDER Unavailable Leny Morales MD Unavailable [phone] Silva Vicente MD Primary Care Provider [phone] Encounter Details Date Type Department Care Team (Late st Contact Info) Description 06/28/2024 Telephone [facility] - [facility]ology - [place] #2 [place] [address] Feliberto Winston MD [address] [id number] Social History Tobacco Use Types Packs/Day Years Used Date Smoking Tobacco: Former Cigarettes 0.5 25 Smokeless Tobacco: Never Comments:occassional Alcohol Use Standard Drinks/Week Comments Not Currently 0 (1 standard drink = 0.6 oz pur e alcohol) [facility] Utilities Answer Date Recorded In [...] declined 04/16/2024 How often do you attend zoroastrianism or islam serv ices? Patient declined 04/16/2024 Do you belong to any clubs o r organizations such as zoroastrianism groups, unions, fraternal or athletic groups, or [...] medical care, and heating? Patient declined 04/16/2024 [facility] - [...] any time in the past 12 m ont, were you homeless or living in a intermediate (including now)? Patient declined 04/16/2024 Sexually Active Control Partners Comments Not Currently Comments No Sex and Gender Information Value Date Recorded Sex Assigned at Female 06/05/2023 10:27 AM CDT Legal Sex Female 10:21 PM CDT Gender Identity Female 06/05/2023 10:27 AM CDT Sexual Orientation Not on file documented as of this encounter Miscellaneous Notes * Telephone Encounter - Akanksha Gonzalez - 06/28/2024 11:54 AM CDT EGD prep sent my chart documented in this encounter Plan of Treatment Upcoming Encounters Date Type Department Care Team (Latest Contact Info) Description 12/30/2024 8:00 AM CDT Hospital Encounter [facility] Gi Lab Periop 1 [place] [address] Kwadwo Montalvo MD 2 [facility] [address] [place] [address] 12/30/2024 8:00 AM CDT - 12/30/2024 8:30 AM CDT Surgery [facility] Gi Lab Periop 1 [place] [address] Kwadwo Montalvo MD [address] [facility] [address] EGD 01/03/2025 11:30 AM CDT [facility] 1 [place] [address] Robert Mae MD #2 [place] [address] Discharge Disposition: Discharged to home or Selfcare 01/28/2025 10:45 AM CDT Office Visit [facility] - Pulmonology & Sleep Medicine - [place] #2 [place] [address] Robert Mae MD #2 [place] [address] 03/11/2025 10:30 AM CDT Office Visit [facility] - Neurology - [place] #2 [place] [address] Maryann El APRN, ELECTRONIC TESTER #2 [place] [address] Scheduled Procedures Name Priority Associated Diagnoses Date/Ti me EGD ULCER OF THE ESOPHAGUS 12/30/2024 8:00 AM CDT documented as of this encounter Visit Diagnoses Not on filedocumented in this encounter Additional Health Concerns Infection Onset Date Last Indicated Resolved Time COVID - 19 09/03/2024 09/03/2024 09/03/2024 9:25 PM INCOME TAX INVESTIGATOR documented as of this encounter Care Teams Tube Operator Relationship Specialty Start Date End Date Dickson, Micky K, MD [address] [place] [address] [address] [place] [address] PCP - General Family Medicine 09/25/23 07/04/24 Silva Vicente MD [address] [place] [address] [place] [address] PCP - General Family Medicine 07/05/24 Mac Sher MD #2 [place] [address] Consulting Physician Neurology 09/15/15 Robert Mae MD #2 [place] [address] Consulting Physician Pulmonary Disease 10/27/22 Maryann El, LIVESTOCK SALES REPRESENTATIVE, ELECTRONIC TESTER #2 [place] [address] Nurse Practitioner Advanced Practice Nurse 12/21/22 Germania Navarro APRN, EDGE GRINDER #2 [place] [address] Nurse Practitioner Advanced Practice Nurse 10/04/23 Leny Morales MD #2 [place] [address] Consulting Physician Gastroenterology 01/19/23 documented as of this encounter
--- OUTSIDE RECORDS SUMMARY | 2024-12-17 14:03 | XMS_ITS | Encounter Summary ---
Author Organization [facility] Address [address] [place] [address] Phone Care Team Providers Care Excavator Backhoe Operator Name Role Phone Mac Sher MD Unavailable Winifred Armstrong EXTENSION WORK INSTRUCTOR, CRANK HAND Primary Care Provider Micky Dickson MD Primary Care Provider Robert Mae MD Unavailable Maryann El APRN, TUBING ASSEMBLER Unavailable + [phone] Germania Navarro APRN, CRANK HAND Unavailable Leny Morales MD Unavailable [phone] Silva Vicente MD Primary Care Provider [phone] Reason for Visit * Reason Comments Medication Refill Encounter Details Date Type Department Care Team (Late st Contact Info) Description 08/04/2021 Refill [facility] - Neurology - [place] #2 [place] [address] Mac Sher MD #2 [place] [address] Medication Refill Social History Tobacco [facility] 1 [place] [address] Kwdawo Montalvo MD [address] [address] 12/30/2024 8:00 AM CDT - 12/30/2024 8:30 AM CDT [facility] 1 [place] [address] Kwadwo Montalvo MD [address] [address] EGD 01/03/2025 11:30 AM CDT [facility] Res[facility] 1 [place] [address] Robert Mae MD #2 [place] [address] Discharge Disposition: Discharged to home or Selfcare 01/28/2025 10:45 AM CDT Office Visit [facility] - Pulmonology & Sleep Medicine - [place] #2 [place] [address] Robert Mae MD #2 [place] [address] 03/11/2025 10:30 AM CDT [facility] - [place] #2 [place] [address] Maryann El APRN, TUBING ASSEMBLER #[address] [place] [address] Scheduled Procedures Name Priority Associated Diagnoses Date/Ti me EGD ULCER OF THE ESOPHAGUS 12/30/2024 8:00 AM CDT documented as of this encounter Visit Diagnoses Not on filedocumented in this encounter Additional Health Concerns Infection Onset Date Last Indicated Resolved Time COVID - 19 09/03/2024 09/03/2024 09/03/2024 9:25 PM SPD TECH documented as of this encounter Care Teams Excavator Backhoe Operator Relationship Specialty Start Date End Date Winifred Armstrong APRN, CRANK HAND [address] [place] [address] PCP - General Advanced Practice Nurse 10/17/19 Micky Dickson MD [address] [place] [address] [place] [address] PCP - General Family Medicine 09/25/23 07/04/24 Silva Vicente MD [address] [place] [address] [place] [address] PCP - General Family Medicine 07/05/24 Mac Sher MD #2 [place] [address] Consulting Physician Neurology 09/15/15 Robert Mae MD #2 [place] [address] Consulting Physician Pulmonary Disease 10/27/22 Maryann El APRN, TUBING ASSEMBLER #2 [place] [address] Nurse Practitioner Advanced Practice Nurse 12/21/22 Germania Navarro APRN, CRANK HAND #2 [place] [address] Nurse Practitioner Advanced Practice Nurse 10/04/23 Leny Morales MD #2 [place] [address] Consulting Physician Gastroenterology 01/19/23 documented as of this encounter
--- OUTSIDE RECORDS SUMMARY | 2024-12-17 14:03 | XMS_ITS | Encounter Summary ---
Author Organization [facility] Address [address] [place] [address] Phone Care Team Providers Care Accounts Payable Technician Name Role Phone Mac Sher MD Unavailable [phone] Winifred Armstrong CAGE OPERATOR, ELECTRIC TRUCK DRIVER Primary Care Provider Micky Dickson MD Primary Care Provider Robert Mae MD Unavailable Maryann El APRN, SOFTWARE ENGINEERING SUPERVISOR Unavailable + [phone] Germania Navarro APRN, ELECTRIC TRUCK DRIVER Unavailable Leny Morales MD Unavailable [phone] Silva Vicente MD Primary Care Provider [phone] Reason for Visit * Reason Comments Medication Refill Encounter Details Date Type Department Care Team (Late st Contact Info) Description 09/16/2023 Refill [facility] - Gastroenterology - [place] #2 [place] [address] Leny Morales MD #2 [place] [address] Medication Refill Social History Tobacco Use Types [...] Telephone Encounter - Monica Marcelo RN - 09/28/2023 9:21 AM EMERGENCY COMMUNICATIONS DISPATCHER Medication [facility] and [facility] medication standing order for pediatric and adult patients. GENCY COMMUNICATIONS DISPATCHER * Telephone Encounter - Sabina Boogie CMA - 09/25/2023 11:28 AM EMERGENCY COMMUNICATIONS DISPATCHER Patient called and scheduled for 10/04/23 for medication management GENCY COMMUNICATIONS DISPATCHER * Telephone Encounter - Amber Davis RN - 09/18/2023 2:04 PM EMERGENCY COMMUNICATIONS DISPATCHER Per chart review patient was to return to the office around 07/22/23 no appointment scheduled. Please call patient to schedule. GENCY COMMUNICATIONS DISPATCHER documented in this encounter Plan of Treatment Upcoming Encounters Date Type Department Care Team (Latest Contact Info) Description 12/30/2024 8:00 AM CDT [facility] 1 [place] [address] Kwadwo Montalvo MD 2 [place] [facility] [address] [place] [address] 12/30/2024 8:00 AM CDT - 12/30/2024 8:30 AM CDT [facility] 1 [place] [address] Kwadwo Montalvo MD 2 [facility] [address] [place] [address] EGD 01/03/2025 11:30 AM CDT [facility] Res[facility] 1 [place] [address] Robert Mae MD #2 [place] [address] Discharge Disposition: Discharged to home or Selfcare 01/28/2025 10:45 AM CDT Office Visit [facility] - Pulmonology & Sleep Medicine - [place] #2 [place] [address] Robert Mae MD #2 [place] [address] 03/11/2025 10:30 AM CDT [facility] - [place] #2 [place] [address] Maryann El APRN, SOFTWARE ENGINEERING SUPERVISOR #2 [place] [address] Scheduled Procedures Name Priority Associated Diagnoses Date/Ti me EGD ULCER OF THE ESOPHAGUS 12/30/2024 8:00 AM CDT documented as of this encounter Visit Diagnoses Not on filedocumented in this encounter Additional Health Concerns Infection Onset Date Last Indicated Resolved Time COVID - 19 09/03/2024 09/03/2024 09/03/2024 9:25 PM EMERGENCY COMMUNICATIONS DISPATCHER documented as of this encounter Care Teams Accounts Payable Technician Relationship Specialty Start Date End Date Winifred Armstrong APRN, ELECTRIC TRUCK DRIVER [address] [place] [address] PCP - General Advanced Practice Nurse 10/17/19 Micky Dickson MD 4 [facility] [address] [place] [address] PCP - General Family Medicine 09/25/23 07/04/24 Silva Vicente MD 4 [facility] [address] [place] [address] PCP - General Family Medicine 07/05/24 Mac Sher MD #2 [place] [address] Consulting Physician Neurology 09/15/15 Robert Mae MD #2 [place] [address] Consulting Physician Pulmonary Disease 10/27/22 Maryann El APRN, SOFTWARE ENGINEERING SUPERVISOR #[address] [place] [address] Nurse Practitioner Advanced Practice Nurse 12/21/22 Germania Navarro APRN, ELECTRIC TRUCK DRIVER #2 [place] [address] Nurse Practitioner Advanced Practice Nurse 10/04/23 Leny Morales MD #2 [place] [address] Consulting Physician Gastroenterology 01/19/23 documented as of this encounter
--- OUTSIDE RECORDS SUMMARY | 2024-12-17 14:03 | XMS_ITS | Encounter Summary ---
Author Organization [facility] Address [address] [place] [address] Phone Care Team Providers Care Truck Striker Name Role Phone Mac Sher MD Unavailable [phone] Winifred Armstrong PICKING TABLE WORKER, PAEDIATRICIAN Primary Care Provider Micky Dickson MD Primary Care Provider Robert Mae MD Unavailable Maryann El APRN, TUMBLE TAILSTOCK TURRET LATHE OPERATOR Unavailable + [phone] Germania Navarro APRN, PAEDIATRICIAN Unavailable Leny Morales MD Unavailable [phone] Silva Vicente MD Primary Care Provider [phone] Reason for Visit * Reason Comments Medication Refill Encounter Details Date Type Department Care Team (Late st Contact Info) Description 09/15/2023 Refill [facility] - Gastroenterology - [place] #2 [place] [phone] Joann Bowers Juana, PAC #2 [place] [address] Medication Refill Social History Tobacco Use Types [...] Encounter - Monica Marcelo RN - 09/28/2023 9:20 AM ALUMINUM BOAT INSPECTOR Patient scheduled an appt for 09/25/2023. Nexium order pended, routing to provider for review due to previous provider is no longer with office. INUM BOAT INSPECTOR * Telephone Encounter - Sabina Boogie CMA - 09/25/2023 11:29 AM ALUMINUM BOAT INSPECTOR Patient called and scheduled for 10/04/23 for medication management INUM BOAT INSPECTOR * Telephone Encounter - Amber Davis RN - 09/18/2023 2:02 PM ALUMINUM BOAT INSPECTOR Per chart review patient was to return to the office around 07/22/23 no appointment scheduled. Please call patient to schedule. INUM BOAT INSPECTOR documented in this encounter Plan of Treatment Upcoming Encounters Date Type Department Care Team (Latest Contact Info) Description 12/30/2024 8:00 AM CDT Hospital Encounter [facility] Gi Lab Periop 1 [facility] [place] [address] Kwadwo Montalvo MD 2 [facility] [address] [facility] [address] [place] [address] 12/30/2024 8:00 AM CDT - 12/30/2024 8:30 AM CDT [facility] [address] [place] [address] Kwadwo Montalvo MD [address] [place] [address] [address] EGD 01/03/2025 11:30 AM CDT [facility] Res[facility] 1 [place] [address] Robert Mae MD #2 [place] [address] Discharge Disposition: Discharged to home or Selfcare 01/28/2025 10:45 AM CDT Office Visit [facility] - Pulmonology & Sleep Medicine [facility] #2 [place] [address] Robert Mae MD #2 [place] [address] 03/11/2025 10:30 AM CDT Office Visit [facility] - Neurology - [place] #2 [place] [address] Maryann El, PICKING TABLE WORKER, TUMBLE TAILSTOCK TURRET LATHE OPERATOR #2 [place] [address] Scheduled Procedures Name Priority Associated Diagnoses Date/Ti me EGD ULCER OF THE ESOPHAGUS 12/30/2024 8:00 AM CDT documented as of this encounter Visit Diagnoses Not on filedocumented in this encounter Additional Health Concerns Infection Onset Date Last Indicated Resolved Time COVID - 19 09/03/2024 09/03/2024 09/03/2024 9:25 PM ALUMINUM BOAT INSPECTOR documented as of this encounter Care Teams Truck Striker Relationship Specialty Start Date End Date Winifred Armstrong APRN, PAEDIATRICIAN [address] [place] [address] PCP - General Advanced Practice Nurse 10/17/19 Micky Dickson MD [address] [facility] [address] CASTRO [address] [place] [address] PCP - General Family Medicine 09/25/23 07/04/24 Silva Vicente MD [address] [facility] [address]STR[address] [place] [address] PCP - General Family Medicine 07/05/24 Mac Sher MD #2 [place] [address] Consulting Physician Neurology 09/15/15 Robert Mae MD #2 [place] [address] Consulting Physician Pulmonary Disease 10/27/22 Maryann El APRN, TUMBLE TAILSTOCK TURRET LATHE OPERATOR #2 [place] [address] Nurse Practitioner Advanced Practice Nurse 12/21/22 Germania Navarro APRN, PAEDIATRICIAN #[address] [place] [address] Nurse Practitioner Advanced Practice Nurse 10/04/23 Leny Morales MD #2 [place] [address] Consulting Physician Gastroenterology 01/19/23 documented as of this encounter
--- OUTSIDE RECORDS SUMMARY | 2024-12-17 14:03 | XMS_ITS | Encounter Summary ---
Author Organization [facility] Address [address] [place] [address] Phone Care Team Providers Care Automotive Service Cashier Name Role Phone Mac Sher MD Unavailable [phone] Winifred Armstrong ACCOUNT UNDERWRITER, RESEARCH RECRUITER Primary Care Provider Micky Dickson MD Primary Care Provider [phone] Robert Mae MD Unavailable Maryann El APRN, MISSILE PAD MECHANIC Unavailable + [phone] Germania Navarro APRN, RESEARCH RECRUITER Unavailable Leny Morales MD Unavailable [phone] Silva Vicente MD Primary Care Provider [phone] Reason for Visit * Reason Comments Medication Refill Encounter Details Date Type Department Care Team (Late st Contact Info) Description 04/01/2022 Refill [facility] - Neurology - [place] [address] [place] [address] Mac Sher MD [address] [place] [address] Medication Refill Social History Tobacco [...] Description 12/30/2024 8:00 AM CDT Hospital [facility] [address] [place] [address] Kwadwo Montalvo MD [address] [address] 12/30/2024 8:00 AM CDT - 12/30/2024 8:30 AM CDT [facility] [address] [place] [address] Kwadwo Montalvo MD [address] [address] EGD 01/03/2025 11:30 AM CDT [facility]ment [facility] Res[facility] [address] [place] [address] Robert Mae MD [address] [place] [address] Discharge Disposition: Discharged to home or Selfcare 01/28/2025 10:45 AM CDT Office Visit [facility] - Pulmonology & Sleep Medicine - [place] [address] [place] [address] Robert Mae MD [address] [place] [address] 03/11/2025 10:30 AM CDT [facility] [place] [address] [place] [address] Maryann El, ACCOUNT UNDERWRITER, MISSILE PAD MECHANIC [address] [place] [address] Scheduled Procedures Name Priority Associated Diagnoses Date/Ti me EGD ULCER OF THE ESOPHAGUS 12/30/2024 8:00 AM CDT documented as of this encounter Visit Diagnoses Not on filedocumented in this encounter Additional Health Concerns Infection Onset Date Last Indicated Resolved Time COVID - 19 09/03/2024 09/03/2024 09/03/2024 9:25 PM FIELD TECHNICIAN documented as of this encounter Care Teams Automotive Service Cashier Relationship Specialty Start Date End Date Winifred Armstrong, ACCOUNT UNDERWRITER, RESEARCH RECRUITER [address] [place] [address] PCP - General Advanced Practice Nurse 10/17/19 Micky Dickson MD [address] [place] [address] [place] [address] PCP - General Family Medicine 09/25/23 07/04/24 Silva Vicente MD [address] [place] [address] [place] [address] PCP - General Family Medicine 07/05/24 Mac Sher MD [address] [place] [address] Consulting Physician Neurology 09/15/15 Robert Mae MD [address] [place] [address] Consulting Physician Pulmonary Disease 10/27/22 Maryann El, ACCOUNT UNDERWRITER, MISSILE PAD MECHANIC [address] [place] [address] Nurse Practitioner Advanced Practice Nurse 12/21/22 Germania Navarro APRN, RESEARCH RECRUITER [address] [place] [address] Nurse Practitioner Advanced Practice Nurse 10/04/23 Leny Morales MD [address] [place] [address] Consulting Physician Gastroenterology 01/19/23 documented as of this encounter
--- OUTSIDE RECORDS SUMMARY | 2024-12-17 14:03 | XMS_ITS | Encounter Summary ---
Author Organization [facility] Address [address] [place] [address] Phone Care Team Providers Care Director Of Retail Marketing Name Role Phone Mac Sher MD Unavailable [phone] Winifred Armstrong POLICE ARTIST, UMBRELLA MENDER Primary Care Provider Micky Dickson MD Primary Care Provider Robert Mae MD Unavailable Maryann El APRN, IT APPLICATIONS ANALYST Unavailable + [phone] Germania Navarro APRN, UMBRELLA MENDER Unavailable Leny Morales MD Unavailable [phone] Silva Vicente MD Primary Care Provider [phone] Reason for Visit * Reason Comments Medication Refill Encounter Details Date Type Department Care Team (Late st Contact Info) Description 08/24/2021 Refill [facility] - Neurology - [place] [address] [place] [id number] Maryann El, CESAR, IT APPLICATIONS ANALYST [address] [place] [address] Medication Refill Social History Tobacco Use Types [...] [facility] 1 [place] [address] Kwadwo Montalvo MD [address] [address] 12/30/2024 8:00 AM CDT - 12/30/2024 8:30 AM CDT [facility] [address] [place] [address] Kwadwo Montalvo MD [address] [address] EGD 01/03/2025 11:30 AM CDT [facility] 1 [place] [address] Robert Mae MD [address] [place] [address] Discharge Disposition: Discharged to home or Selfcare 01/28/2025 10:45 AM CDT Office Visit [facility] - Pulmonology & Sleep Medicine - [place] [address] [place] [address] Robert Mae MD [address] [place] [address] 03/11/2025 10:30 AM CDT Office Visit [facility] - Neurology - [place] [address] [place] [address] Maryann El APRN, IT APPLICATIONS ANALYST [address] [place] [address] Scheduled Procedures Name Priority Associated Diagnoses Date/Ti [...] - 19 09/03/2024 09/03/2024 09/03/2024 9:25 PM HEAD TRANSFER CLERK documented as of this encounter Care Teams Director Of Retail Marketing Relationship Specialty Start Date End Date Winifred Armstrong APRN, UMBRELLA MENDER [address] [place] [address] PCP - General Advanced Practice Nurse 10/17/19 Micky Dickson MD [address] [place] [address] [address] [place], [place] [address], [place] [address] PCP - General Family Medicine 09/25/23 07/04/24 Silva Vicente MD [address] [place] [address] [place] [address] PCP - General Family Medicine 07/05/24 Mac Sher MD [address] [place] [address] Consulting Physician Neurology 09/15/15 Robert Mae MD [address] [place] [address] Consulting Physician Pulmonary Disease 10/27/22 Maryann El APRN, IT APPLICATIONS ANALYST [address] [place] [address] Nurse Practitioner Advanced Practice Nurse 12/21/22 Germania Navarro APRN, UMBRELLA MENDER [address] [place] [address] Nurse Practitioner Advanced Practice Nurse 10/04/23 Leny Morales MD [address] [place] [address] Consulting Physician Gastroenterology 01/19/23 documented as of this encounter
--- OUTSIDE RECORDS SUMMARY | 2024-12-17 14:07 | XMS_ITS | Data Portability ---
Author Organization [facility] KATHERINEShahla Address [address] [place] [address] Care Team Providers Care Edge Cutting Machine Operator Name Role Phone LUKEMARYANA Bridges OTHER KADEN ISLAS Inside Sales Administrator LYLA ROSS OTHER ROXANA KAPLAN Orthopedic Surgeon Assessment Encounter Date Assessment Date Assessment LastModified by Organization Details LastModified Time 07/17/2023 07/17/2023 Pt's case was discussed w/resident. Documentation was reviewed, and I agree w/resident's note. Dr. De La Rosa Not available 07/19/2023 14:13:28 02/01/2024 02/01/[address] gaitan colonscopy Not available 02/01/2024 14:32:57 08/28/2024 08/28/2024 Follow-up in 2 months or as needed [email or web address] Not available 09/05/2024 20:16:18 Plan of Treatment Reminders Order Date Submit Date Provider Last Modified By Organization Details Last Modified Time Details Appointments None recorded. Lab influenza virus A + B + SARS-CoV-2 (COVID19) Ag panel, rapid IA, upper respirator y specimen 2023 024 In-Office Order, Internal Use Only DO Not Attach Compendium DO Not Attach Compendium, Do Not Delete/merge, [id number] 15:04:35 Referral None recorded. Procedures polysomnog link, split night (PROC) - frequent waking during the night, fatigue, weakness, sleepiness , cough 2023 024 [facility], [address] [facility] [place], [address], 5 10:22:42 Surgeries None recorded. Imaging MAMMO, diagnostic , digital, bilateral - pain in right breast, recent trauma, breast implants in place 2023 024 [facility] ([facility]) Scheduling, 1 [facility] [place], [address], 4 15:47:09 US, breast, bilateral - pain in right breast, recent trauma, breast implants in place 2023 024 [facility] ([facility]) Scheduling, [address] [place], [address], 4 15:47:07 Medication Orders prednisone 20 mg tablet 2023 024 [facility] [place], [address], 4 13:31:00 Nicorette 2 mg buccal mini lozenge 2023 024 [facility], [address] [place], [address], 4 15:05:12 Augmentin 875 mg-125 mg tablet 2023 024 [facility], [address] [place], [address], 4 10:19:06 azithromyc in 500 mg tablet 2023 024 [facility] [address] [place], [address], 4 10:20:43 Patient TargetsNo targets recorded. Patient Instructions Encounter Date Encounter Id Patient Instructions Last Modified By Organization Details Last Modified Time 08/15/2023 [id number] On the date of this encounter, I saw and examined the patient, personally verifying the wahl and critical findings in the resident s note. I reviewed and agree with the resident/fellow s findings and plan. ~MD Miguel A Not available 08/21/2023 10:33:29 02/01/2024 [id number] Quitting Tobacco : Care Instructions Not available 02/01/2024 15:02:36 Quitting Tobacco : Care Instructions Not available 02/01/2024 15:02:36 Attending Physician Addendum I did not personally see or examine the patient with the resident. I was physically present to provide indirect supervision through entire encounter. I have reviewed the documentation and agree with the history, physical findings, work-up, and medical decision making as recorded. Bernadette French MD [email or web address] Not available 02/19/2024 12:07:21 05/06/2024 [id number] On the date of this encounter, I was immediately available to assist the resident/fellow in the care of the patient, and have reviewed and agree with the resident s findings and plan of care. ~MD Miguel A Not available 05/06/2024 10:59:52 08/28/2024 [id number] Quitting Tobacco : Care Instructions [email or web address] Not available 09/05/2024 20:23:00 Attending Physician Attestation I personally saw and examined the patient with the resident. I have reviewed the documentation and agree with the history, physical findings, work-up, and medical decision making as recorded. Corinna Whitley MD [email or web address] Not available 08/28/2024 12:34:21 Reason for Referral None Reported. Results Created Date Observation Date Name Description Value Unit Range Abnormal Flag Note LastModifiedBy Organization Detail LastModifiedTime 02/01/20 24 02/01/2024 influ yadiel virus A + B + SARS- CoV-2 (COVI D19) Ag panel , rapid IA, upper respi rator y speci men Flu A negati ve Not Available In-Office Order Internal Use Only DO Not Attach Compendium DO Not Attach Compendium, Do Not Delete/merge, [id number] 02/01/2024 14:15:40 02/01/20 24 02/01/2024 influ yadiel virus A + B + SARS- CoV-2 (COVI D19) Ag panel , rapid IA, upper respi rator y speci men Flu B negati ve Not Available In-Office Order Internal Use Only DO Not Attach Compendium DO Not Attach Compendium, Do Not Delete/merge, [id number] 02/01/2024 14:15:40 02/01/20 24 02/01/2024 influ yadiel virus A + B + SARS- CoV-2 (COVI D19) Ag panel , rapid IA, upper respi rator y speci men Rapid SARS CoV 2 Ag, QL IA, respiratory specimen negati ve Not Available In-Office Order Internal Use Only DO Not Attach Compendium DO Not Attach Compendium, Do Not Delete/merge, [id number] 02/01/2024 14:15:40 05/03/20 24 05/03/2024 lab* lambert-eato n neg Not Available Not Available 04/22 13:11:37 05/03/20 24 05/03/2024 lab* ach receptor 0 Not Available Not Available 05/09/2024 13:11:37 05/03/20 24 05/03/2024 lab* P/Q calcium channel Ab 0 Not Available Not Available 0 05/09/2024 13:11:37 05/03/20 24 05/03/2024 musk Ab, serum musk autoantibody 0.00 0.00 - 0.02 Not Available [facility] [address], [place], [address], 05/08/2024 19:08:55 07/05/2007/05/2024 patho logy study gastic biopsy Not Available [facility] (Radiology) [address] [place], [address], 07/09/2024 09:48:05 08/15/2008/10/2023 XR, foot, 3 or more view No observ ation record ed. [email or web address] [address] [place], [address], 08/16/2023 07:22:15 06/10/20 24 06/10/2024 US, breas t, bilat eral No observ ation record ed. [facility] (Radiology) [address] [place], [address], 06/11/2024 12:08:21 06/10/20 24 06/10/2024 MAMMO , diagn ostic , digit al, bilat eral No observ ation record ed. [facility] (Radiology) [address] [place], [address], 06/11/2024 12:08:22 Result Notes None recorded. Problems Name Problem SNOMED Code Status Onset Date Resolution Date Notes Provider Name and Address Organization Details Recorded Time Prehyper tension 424131269 Active 2018 Liz Doherty APN, FNP-C Attn: Accounting ,[address] [place], [address] , [facility] 9 01:41:13 Pain of right shoulder joint 20210419113 689471 Active 2018 Liz Doherty APN, FNP-C Attn: Accounting ,[address] [place], [address] , [facility] 9 01:41:17 Edema of lower extremit y 224091149 Active 2022 JOSE MANUEL MEDINA NP Attn: Accounting ,[address] [place], [address] , [facility] 3 10:27:21 Pain in right foot 57125565371 9107 Active 2022 Tori Rahman MD Attn: Accounting ,[address] [place], [address] , [facility] 3 16:37:52 Fracture of bone 328794371 Active 2022 Maki Brunner MD Attn: Accounting ,[address] [place], [address] , [facility] 3 17:20:54 Fracture of foot 33566559 Active 2022 Maki Brunner MD Attn: Accounting ,[address] [facility], [place], [address] , [place] [facility] 3 17:21:18 Headache 56101532 Active Azalea Howard [place], [place] [facility] 6 15:00:13 Tremor 02380358 Active [place] [facility] 6 15:00:13 Mixed anxiety and depressi ve disorder 334708847 Active JOSE MANUEL MEDINA NP Attn: Accounting ,[address] [facility], [place], [address] , [place] [facility] 2 14:34:25 Muscle weakness 03748445 Active 2023 Silva Vicente MD Attn: Accounting ,[address] [facility], [place], [address] , [place] [facility] 4 13:43:41 Pain of right breast 8837970202 Active 2023 Silva Vicente MD Attn: Accounting ,[address] [facility], [place], [address] , [place] [facility] 4 13:43:48 Bronchit is 30738438 Active 2023 Silva Vicente MD Attn: Accounting ,[address] [facility], [place], [address] , [place] [facility] 4 20:22:00 Producti ve cough 64447459 Active 2023 Silva Vicente MD Attn: Accounting ,[address] [facility], [place], [address] , [place] [facility] 4 20:22:10 Frequent night waking 690948424 Active 2023 Silva Vicente MD Attn: Accounting ,[address] [facility], [place], [address] , [place] [facility] 4 20:22:20 Administ ration of influenz a vaccine Active 2023 Silva Vicente MD Attn: Accounting ,[address] [facility], [place], [address] , [place] - [facility] 4 20:16:46 Administ ration of SARS-CoV -2 recombin ant spike protein antigen vaccine Active 2023 Silva Vicente MD Attn: Accounting ,[address] [facility], [place], [address] , [place] [facility] 4 20:16:48 Immuniza tion due 509450558 Active 2023 Silva Vicente MD Attn: Accounting ,[address] [facility], [place], [address] , [place] - [facility] 4 20:16:49 Smoker 13744499 Active 2023 Silva Vicente MD Attn: Accounting ,[address] [place], [address] , [place] [facility] 4 20:23:01 Osteopor osis 82875050 Active Az[place]a [place]en, [place] [facility] 6 15:00:13 Pulmonar y emphysem a 02116089 Active JOSE MANUEL MEDINA MARKETING PROPOSAL COORDINATOR Attn: Accounting ,[address] [place], [address] , [place] - [facility] 2 14:34:25 Multiple nodules of lung 756333683 Active JOSE MANUEL MEDINA NP Attn: Accounting ,[address] [place], [address] , [place] - [facility] 2 14:34:25 Sinusiti s 52226897 Completed 05/06/2019 Liz Doherty APN, DIE FILER-C Attn: Accounting ,[address] [place], [address] , [place] - [facility] 9 12:36:01 Urinary tract infectio us disease 53255027 Active Az[place]a [place] [facility] 6 15:00:13 Chronic low back pain 969516409 Active 8/24/16 Lumbar epidural block JOSE MANUEL MEDINA NP Attn: Accounting ,[address] [facility], [place], [address] , [place] - [facility] 2 14:34:25 Upper respirat ory infectio n 97735711 Completed 05/06/2019 Liz Doherty APN, DIE FILER-C Attn: Accounting ,[address] [facility], [place], [address] , [place] - [facility] 9 12:35:45 Chronic obstruct greta pulmonar y disease 04175056 Active JOSE MANUEL MEDINA NP Attn: Accounting ,[address] [facility], [place], [address] , [place] [facility] 0 20:25:41 Generali zed anxiety disorder 07853216 Active Az[place]a [place]en[place] [facility] 6 15:00:13 Chest pain 53409370 Completed 05/06/2019 Liz Doherty APN, DIE FILER-C Attn: Accounting ,[address] [place], [address] , [place] - [facility] 9 12:36:06 Painful urging to urinate 53531400 Completed 05/06/2019 Liz Doherty APN, DIE FILER-C Attn: Accounting ,[address] [place], [address] , [place] - [facility] 9 12:36:13 Acute exacerba tion of chronic obstruct greta pulmonar y disease 772762329 Completed 05/06/2019 Liz Doherty APN, DIE FILER-C Attn: Accounting ,[address] [place], [address] , [place] [facility] 9 12:35:[address]. Christos [place], [place] - [facility] 6 10:18:27 Dyspareu irma 07942054 Active Azalea [place]en, [place] [facility] 6 15:00:13 Pain of breast 01598063 Completed 05/06/2019 Liz Doherty APN, WHITNEYC Attn: Accounting ,[address] [facility], [place], [address] , [facility] 9 12:36:16 Bacteria l vaginosi s 766164533 Completed 05/06/2019 Liz Doherty APN, WHITNEYC Attn: Accounting ,[address] [facility], [place], [address] , [place] - [facility] 9 12:36:20 Tobacco user 542471628 Active Quit 2 years ago JOSE MANUEL MEDINA NP Attn: Accounting ,[address] [facility], [place], [address] , [facility] 2 14:34:25 Notes:Had brain aneurysm - a t Pa for drooling and left eye not reacting Jun 2013 - gets 6 month f/u Head CT and CXR normal 06/25/15 [facility] ER for dizziness mental status change 06/05/16 Received Botox injections for migranes. 09/02/16 - Botox tx 09/28/1689-dafxgyymif-Smajdroa procedure note for 1. Lumbar pain with left lumbar radiculopathy. 2. Moderate spinal stenosis at L 4-5 with bulging disc at L4 -5. 3. bulging disc at L5-S1. 4. Mild right thoracolumbar scoliosis with apex at L2. 11/21/16-[facility]-Xr Chest 2 views-Impression: 1. No evidence of an acute cardiopulmonary abnormality. 2. Pulmonary hyperinflation, evidence of emphysema,. 3. The previously recommended f/u chest CT to evaluate stability of pulmonary nodules visualized on CT from February 2015 is indicated at this time if not already performed. Problem Notes None recorded. Procedures Surgical History Date Name Laterality Status Provider Name and Address Organization Details Recorded Time 2023 esophagogastroduodenoscopy completed Brittany Bynum MA CT - [facility] 4 17:21:28 2022 Back Surgery completed Brittany Bynum [place] [facility] 3 10:22:42 2020 hemiarthroplasty of left shoulder completed DARIAN [place] 1 11:39:12 2019 Unlisted procedure shoulder completed Leisa Carballo [place] [facility] 0 12:09:10 2017 cholecystectomy completed [place]ela [place]ballo [place] [facility] 8 12:22:38 2014 Most Recent Mammogram completed Manisha Miguel [place] [facility] 5 11:31:33 2013 Extensive hand surgery completed Precious [place] [facility] 5 08:58:12 2012 Orthopedic Surgery completed Precious [place] [facility] 5 08:58:12 2009 Breast Implants completed [place]ious [place] [facility] 5 08:58:12 2005 Orthopedic Surgery completed Precious [place] [facility] 5 08:58:12 2002 Orthopedic Surgery completed Precious [place] [facility] 5 08:58:12 1999 Orthopedic Surgery completed Precious [place] [facility] 5 08:58:12 1987 Hysterectomy completed Precious [place] [facility] 5 08:58:12 Imaging Results Imaging Date Name Status LastModified by Organiz ation Details LastModified Time 08/10/2023 XR, foot, 3 or more view completed [facility] [address] [place], [address], 08/16/2023 07:22:15 06/10/2024 US, breast, bilateral completed [facility] (Radiology) [address] [place] [address] [place], [address], 06/11/2024 12:08:21 06/10/2024 MAMMO, diagnostic, digital, bilateral completed [facility] (Radiology) [address] [place] [address] [place], [address], 06/11/2024 12:08:22 Procedure Notes None recorded. Medical Equipment None Reported. Allergies Allergen ID Allergen Name Allergen Category Reaction Reaction Severity Criticality Documentation Date Start Date Code Code System Note Provider Name and Address Organization Details Recorded Time 11667 morphine medicatio n Not available Not available Not available 10/29/2014 7052 RxNorm Not Available Not Available Not Available 26539 iron medicatio n Not available Not available Not available 03/22/2017 10927 RxNorm Not Available Not Available Not Available Medications Name Sig Start Date Stop Date Status Note LastModified by Organization Details LastModified Time Prescript ion - Renewal 10/02 completed Not Available Not Available Not Available celecoxib 200 mg capsule TAKE 1 CAPSULE BY MOUTH ONCE DAILY WITH FOOD active Not Available Not Available No t Available amoxicill in 500 mg capsule active Not Available Not Available Not Available methocarb cynthia 500 mg tablet TAKE 1 TABLET BY MOUTH EVERY 8 HOURS NEEDED FOR SPASMS active Not Available Not Available No t Available buspirone 5 mg tablet 12/16 completed Not Available Not Available Not Available primidone 50 mg tablet TAKE 4 TABLETS BY MOUTH NIGHTLY 05/08 completed Not Available Not Available Not Available Colace 100 mg capsule Take 1 capsule every day by oral route. 06/29 completed Not Available Not Available Not Available venlafaxi ne ER 37.5 mg capsule,e xtended release 24 hr 02/10 completed Not Available Not Available Not Available prednison e 10 mg tablet TAKE 4 TABLETS BY MOUTH DAILY FOR 2 DAYS, THEN 3 TABLETS DAILY FOR 2 DAYS, THEN 2 TABLETS DAILY FOR 2 DAYS, THEN 1 TABLET DAILY FOR 2 DAYS AND THEN 1/2 (ONE-SHAMAR F) TABLET BY MOUTH DAILY FOR 2 DAYS 05/06 completed Not Available Not Available Not Available venlafaxi ne ER 75 mg capsule,e xtended release 24 hr 02/10 completed Not Available Not Available Not Available doxycycli ne hyclate 100 mg capsule TAKE 1 CAPSULE BY MOUTH TWICE DAILY FOR 7 DAYS 03/22 completed Not Available Not Available Not Available benztropi ne 0.5 mg tablet Take one tablet po bid 05/08 completed Not Available Not Available Not Available nicotine 14 mg/24 hr daily transderm al patch Apply one new patch topicall y once daily 10/02 completed Not Available Not Available Not Available citalopra m 40 mg tablet 1 PO QD active Not Available Not Available Not Available trazodone 50 mg tablet Take 1 tablet 3 times a day by oral route. active Not Available Not Available No t Available azithromy arnoldo 250 mg tablet TAKE 2 TABLETS BY MOUTH ON DAY 1, AND THEN TAKE 1 TABLET BY MOUTH ONCE A DAY ON DAY 2 THROUGH DAY 5 active Not Available Not Available No t Available fluconazo le 150 mg tablet TAKE 1 TABLET BY MOUTH DIRECTED 03/22 completed Not Available Not Available Not Available benzonata te 200 mg capsule TAKE 1 CAPSULE BY MOUTH THREE TIMES DAILY NEEDED FOR COUGH FOR UP TO 14 DAYS active Not Available Not Available No t Available citalopra m 10 mg tablet 40+10mg =50mg active Not Available Not Available No t Available hydrocodo ne 5 mg-acetam inophen 325 mg tablet TAKE 1 TABLET BY MOUTH EVERY 6 HOURS NEEDED FOR PAIN 07/17 completed Not Available Not Available Not Available sucralfat e 100 mg/mL oral suspensio n TAKE 10 ML BY MOUTH THREE TIMES DAILY FOR 30 DAYS active Not Available Not Available No t Available donepezil 10 mg tablet TAKE 1 TABLET BY MOUTH NIGHTLY active Not Available Not Available No t Available sumatript an 25 mg tablet 09/21 completed Not Available Not Available Not Available prednison e 20 mg tablet TAKE 1 TABLET BY MOUTH TWICE DAILY FOR 5 DAYS active Not Available Not Available No t Available alendrona te 70 mg tablet Take 1 tablet every week by oral route In am on empty stomach with water only and sit up 30 minutes after. 11/21 completed Not Available Not Available Not Available sennoside s 8.6 mg-docusa te sodium 50 mg tablet Take 2 tablets every day by oral route. 10/01 completed Not Available Not Available Not Available venlafaxi ne ER 150 mg capsule,e xtended release 24 hr 02/10 completed Not Available Not Available Not Available hydroxyzi ne pamoate 50 mg capsule active Not Available Not Available Not Available topiramat e 25 mg tablet Take one tablet po daily 09/06 completed Not Available Not Available Not Available metronida zole 500 mg tablet Take 1 tablet twice a day by oral route for 5 days. active Not Available Not Available No t Available hydroxyzi ne HCl 50 mg tablet 01/31 completed Not Available Not Available Not Available acetamino phen 300 mg-codein e 30 mg tablet Take 1 tablet 3 times a day by oral route. 10/17 completed Not Available Not Available Not Available prochlorp erazine maleate 10 mg tablet active Not Available Not Available Not Available ciproflox acin 500 mg tablet Take 1 tablet every 12 hours by oral route for 3 days. 03/22 completed Not Available Not Available Not Available sulfameth oxazole 800 mg-trimet hoprim 160 mg tablet Take 1 tablet every 12 hours by oral route for 10 days. 12/16 completed Not Available Not Available Not Available tramadol 50 mg tablet TAKE 1 TABLET BY MOUTH EVERY 6 HOURS NEEDED FOR PAIN 03/22 completed Not Available Not Available Not Available risperido ne 3 mg tablet 01/01 completed Not Available Not Available Not Available butalbita l-acetami nophen-ca ffeine 50 mg-325 mg-40 mg tablet TAKE 1 TABLET BY MOUTH EVERY 6 HOURS NEEDED FOR HEADACHE S OR MIGRAINE . MAXIMUM OF 15 TABLETS PER MONTH. active Not Available Not Available No t Available ketorolac 10 mg tablet active Not Available Not Available Not Available risperido ne 2 mg tablet 1 PO BID active Not Available Not Available Not Available meloxicam 7.5 mg tablet TAKE 1 TABLET BY MOUTH ONCE DAILY WITH FOOD 09/06 completed Not Available Not Available Not Available oxycodone -acetamin ophen 5 mg-325 mg tablet TAKE 1 TABLET BY MOUTH EVERY 8 HOURS NEEDED FOR PAIN active Not Available Not Available No t Available bupropion HCl 100 mg tablet active Not Available Not Available No t Available propranol ol 40 mg tablet 12/16 completed Not Available Not Available Not Available amoxicill in 875 mg tablet Take 1 tablet twice a day by oral route for 10 days. active Not Available Not Available No t Available alprazola m 0.25 mg tablet TAKE 1 TABLET BY MOUTH TWO TO THREE TIMES DAILY ONLY NEEDED 05/06 completed Not Available Not Available Not Available citalopra m 20 mg tablet Take one tablet po daily 06/29 completed Not Available Not Available Not Available ziprasido ne 20 mg capsule Take one tablet po daily 01/26 completed Not Available Not Available Not Available primidone 250 mg tablet TAKE 1 TABLET BY MOUTH NIGHTLY active Not Available Not Available No t Available metoclopr amide 5 mg tablet TAKE 1 TABLET BY MOUTH ONCE DAILY NEEDED FOR MIGRAINE HEADACHE 05/08 completed Not Available Not Available Not Available Nitrostat 0.4 mg sublingua l tablet 09/21 completed as needed Not Available Not Available Not Available oxycodone -acetamin ophen 10 mg-325 mg tablet TAKE 1 TABLET BY MOUTH EVERY 4 HOURS NEEDED FOR PAIN 05/08 completed Not Available Not Available Not Available trazodone 100 mg tablet Take one tablet po qhs 03/22 completed Not Available Not Available Not Available dicyclomi ne 20 mg tablet TAKE 1 TABLET BY MOUTH ONCE DAILY IN THE MORNING AND 1 TABLET AT BEDTIME active Not Available Not Available No t Available benzonata te 100 mg capsule TAKE 1 CAPSULE BY MOUTH THREE TIMES DAILY NEEDED FOR COUGH 09/06 completed Not Available Not Available Not Available hydrocodo ne 7.5 mg-acetam inophen 325 mg tablet TAKE 1 TABLET BY MOUTH EVERY 6 HOURS FOR 13 DAYS 07/17 completed Not Available Not Available Not Available cephalexi n 500 mg capsule TAKE 1 CAPSULE BY MOUTH 4 TIMES DAILY UNTIL GONE 03/22 completed Not Available Not Available Not Available pantopraz ole 40 mg tablet,de layed release TAKE 1 TABLET BY MOUTH ONCE DAILY active Not Available Not Available No t Available trazodone 150 mg tablet active Not Available Not Available Not Available buspirone 30 mg tablet active Not Available Not Available Not Available buspirone 10 mg tablet 01/31 completed Not Available Not Available Not Available polymyxin B sulfate 10,000 unit-trim ethoprim 1 mg/mL eye drops INSTILL 1 DROP INTO AFFECTED EYE(S) BY OPHTHALM IC ROUTE EVERY 3 HOURS WHILE AWAKE. MAX 6 DOSES IN 24H 04/03 completed Not Available Not Available Not Available benztropi ne 1 mg tablet 1.5 mg active pt states she is on the 2mg Not Available Not Available Not Available benztropi ne 2 mg tablet active Not Available Not Available Not Available omeprazol e 20 mg capsule,d elayed release 10/17 completed Not Available Not Available Not Available diclofena c sodium 75 mg tablet,de layed release Take 1 tablet twice a day by oral route. 03/22 completed Not Available Not Available Not Available etodolac 400 mg tablet 01/01 completed Not Available Not Available Not Available hydroxyzi ne HCl 25 mg tablet 05/08 completed Not Available Not Available Not Available furosemid e 20 mg tablet TAKE 1 TABLET BY MOUTH ONCE DAILY IN THE MORNING FOR 3 DAYS 05/06 completed Not Available Not Available Not Available ziprasido ne 40 mg capsule Take one tablet po q hs 01/26 completed Not Available Not Available Not Available Cheratuss in AC 10 mg-100 mg/5 mL oral liquid Take 10 mL every 4-6 hours by oral route after meals. 11/21 completed Not Available Not Available Not Available oxycodone -acetamin ophen 7.5 mg-325 mg tablet active Not Available Not Available Not Available methylpre dnisolone 4 mg tablets in a dose pack TAKE PER PACKAGE INSTRUCT IONS, WITH FOOD. 08/28 completed Not Available Not Available Not Available albuterol sulfate HFA 90 mcg/actua tion aerosol inhaler INHALE 2 PUFFS BY MOUTH EVERY 4 HOURS NEEDED FOR WHEEZING active Not Available Not Available No t Available propranol ol 20 mg tablet TAKE 1 TABLET BY MOUTH THREE TIMES DAILY active Not Available Not Available No t Available fluticaso ne propionat e 50 mcg/actua tion nasal spray,aura pension USE 1 SPRAY(S) IN EACH NOSTRIL TWICE DAILY 02/10 completed Not Available Not Available Not Available risperido ne 1 mg tablet 01/31 completed Not Available Not Available Not Available glycopyrr olate 2 mg tablet active Not Available Not Available No t Available risperido ne 0.5 mg tablet 09/06 completed Not Available Not Available Not Available prazosin 2 mg capsule 05/08 completed Not Available Not Available Not Available naproxen 500 mg tablet Take 1 tablet twice a day by oral route as needed. 09/21 completed Not Available Not Available Not Available amoxicill in 875 mg-potass ium clavulana te 125 mg tablet TAKE 1 TABLET BY MOUTH EVERY 12 HOURS WITH MEALS FOR 5 DAYS 05/06 completed Not Available Not Available Not Available esomepraz ole magnesium 20 mg capsule,d elayed release TAKE 1 CAPSULE BY MOUTH ONCE DAILY active Not Available Not Available No t Available azithromy arnoldo 500 mg tablet TAKE 1 TABLET BY MOUTH ONCE DAILY FOR 5 DAYS 05/06 completed Not Available Not Available Not Available escitalop julia 10 mg tablet active Not Available Not Available Not Available aripipraz ole 5 mg tablet 12/16 completed Not Available Not Available Not Available topiramat e 50 mg tablet TAKE 1 TABLET BY MOUTH TWICE DAILY active Not Available Not Available No t Available mirtazapi ne 7.5 mg tablet 05/06 completed Not Available Not Available Not Available nitrofura ntoin monohydra te/macroc rystals 100 mg capsule Take 1 capsule every 12 hours by oral route for 5 days. 05/06 completed Not Available Not Available Not Available Constulos e 10 gram/15 mL oral solution GIVE 20 ML BY MOUTH TWO TIMES DAILY FOR 30 DAYS 05/06 completed Not Available Not Available Not Available Calcium 600 + D(3) 600 mg-5 mcg (200 unit) tablet Take 1 tablet twice a day by oral route with meals. 2014 active Not Available Not Available Not Avai lable sumatript an 4 mg/0.5 mL subcutane ous pen injector 10/01 completed Not Available Not Available Not Available Chantix 0.5 mg tablet TAKE DIRECTED 03/22 completed Not Available Not Available Not Available hydrochlo rothiazid e 12.5 mg tablet TAKE 1 TABLET BY MOUTH ONCE DAILY FOR 7 DAYS 02/10 completed Not Available Not Available Not Available Symbicort 160 mcg-4.5 mcg/actua tion HFA aerosol inhaler INHALE 2 PUFFS BY MOUTH TWICE DAILY active Not Available Not Available No t Available Mucinex 1,200 mg tablet, extended release Take 1 tablet twice a day by oral route as needed for 10 days. 01/31 completed Not Available Not Available Not Available Chantix Continuin g Month Box 1 mg tablet Take 1 tablet twice a day by oral route. 02/19 completed Not Available Not Available Not Available Chantix Starting Month Box 0.5 mg (11)-1 mg (42) tablets in dose pack Take by oral route as directed 02/19 completed Not Available Not Available Not Available Linzess 145 mcg capsule TAKE 1 CAPSULE BY MOUTH IN THE MORNING BEFORE BREAKFAS T active Not Available Not Available No t Available guaifenes in ER 600 mg tablet, extended release 12 hr Take 1 tablet every 12 hours by oral route as needed. 02/19 completed Not Available Not Available Not Available Zembrace Symtouch 3 mg/0.5 mL subcutane ous pen injector 09/21 completed Not Available Not Available Not Available Nicorette 2 mg buccal mini lozenge Place 1 lozenge by buccal route for 30 days. 2023 active Not Available Not Available Not Avai lable Trelegy Ellipta 100 mcg-62.5 mcg-25 mcg powder for inhalatio n 08/28 completed stopped a long time ago, apparent ly put on somethin g stronger Not Available Not Available Not Available Aimovig Autoinjec tor 70 mg/mL subcutane ous auto-inje ctor 09/21 completed Not Available Not Available Not Available Emgality Pen 120 mg/mL subcutane ous pen injector INJECT 1 PEN SUBCUTAN EOUSLY EVERY 28 DAYS 05/06 completed Not Available Not Available Not Available Ubrelvy 50 mg tablet TAKE 1 TABLET BY MOUTH TWICE DAILY NEEDED FOR UP TO 30 DAYS. MAX OF 10 DAYS PER MONTH 05/06 completed Not Available Not Available Not Available Reyvow 50 mg tablet TAKE 1 TABLET BY MOUTH ONCE DAILY NEEDED FOR HEADACHE active Not Available Not Available No t Available Qulipta 60 mg tablet TAKE 1 TABLET BY MOUTH ONCE DAILY active Not Available Not Available No t Available Qulipta 30 mg tablet TAKE 1 TABLET BY MOUTH ONCE DAILY NEEDED FOR MIGRAINE S 05/08 completed Not Available Not Available Not Available Vitals Date Recorded Body height Body mass index (BMI) Body weight Heart rate Respiratory rate Body temperature Systolic blood pressure Diastolic blood pressure Provider Name and Address Organization Details Last Updated DateTime 3 157.48 cm 21.1 kg/m2 15787.2 2 g 84 /min 18 /min 98.3 [degF] 121 mm[Hg] 81 mm[Hg] Belle Morales [place] [facility] 3 15:44:16 Date Recorded Body height Body mass index (BMI) Body weight Body temperature Oxygen saturation Oxygen saturation in Arterial blood by Pulse oximetry Respiratory rate Heart rate Systolic blood pressure Diastolic blood pressure Provider Name and Address Organization Details Last Updated DateTime 3 157.48 cm 21.1 kg/m2 57486.9 2 g 98.4 [degF] 98 % 98 % 18 /min 82 /min 122 mm[Hg] 85 mm[Hg] Brittany Bynum MA [facility] 3 17:07:27 Date Recorded Body height Body mass index (BMI) Body weight Respiratory rate Body temperature Heart rate Oxygen saturation Oxygen saturation in Arterial blood by Pulse oximetry Systolic blood pressure Diastolic blood pressure Provider Name and Address Organization Details Last Updated DateTime 4 157.48 cm 20.5 kg/m2 53245.3 5 g 18 /min 98.2 [degF] 74 /min 98 % 98 % 133 mm[Hg] 86 mm[Hg] Thalia Gonzalez MA [facility] 4 14:00:32 Date Recorded Body height Body mass index (BMI) Body weight Respiratory rate Heart rate Body temperature Oxygen saturation Oxygen saturation in Arterial blood by Pulse oximetry Systolic blood pressure Diastolic blood pressure Provider Name and Address Organization Details Last Updated DateTime 4 157.48 cm 19.9 kg/m2 92243.2 1 g 16 /min 97 /min 98 [degF] 95 % 95 % 90 mm[Hg] 65 mm[Hg] DARIAN Davidson [facility] 4 10:27:07 Date Recorded Body height Body mass index (BMI) Body weight Body temperature Heart rate Respiratory rate Oxygen saturation Oxygen saturation in Arterial blood by Pulse oximetry Systolic blood pressure Diastolic blood pressure Provider Name and Address Organization Details Last Updated DateTime 4 157.48 cm 20.6 kg/m2 05032.8 g 97.8 [degF] 99 /min 16 /min 97 % 97 % 109 mm[Hg] 76 mm[Hg] Dania Sands MA [facility] 4 11:39:13 Social History Question Answer Notes LastModified by Organizat ion Details LastModified Time Tobacco Smoking Status Current Every Day Smoker quit smoking 08/28/2022- restarted 05/2023 Brittany Bynum MA [facility] 08/15/2023 17:08:09 What Is Your Level Of Alcohol Consumption? None Information not available 02/10/2023 Is Blood Transfusion Acceptable In An Emergency? Yes Information not available 01/07/2015 What Is Your Level Of Caffeine Consumption? Heavy 3 Cups Coffee Per Day [email or web address] Information not available 10/01/2018 How Much Tobacco Do You Chew? None Information not available 01/07/2015 In The 14 Days Before Symptom Onset, Have You Had Close Contact With A Laboratory-confir med COVID-19 While That Case Was Ill? No Information not available 09/06/2021 In The 14 Days Before Symptom Onset, Have You Had Close Contact With A Person Who Is Under Investigation For COVID-19 While That Person Was Ill? No Information not available 09/06/2021 Have You Been To An Area Known To Be High Risk For COVID-19? No Information not available 09/06/2021 Are You Currently Employed? No Information not available 01/07/2015 What Type Of Diet Are You Following? REGULAR Information not available 01/07/2015 Which Illicit Or Recreational Drugs Have You Used? No Information not available 10/29/2014 Do You Or Have You Ever Used E-cigarettes Or Vape? Former User Of Electronic Cigarettes Information not available 02/10/2023 Education 12 Information no t available 01/07/2015 Are There Any Guns Present In Your Home? No Information not available 12/16/2022 Live Alone Or With Others? With Others To Michele [email or web address] Information not available 02/06/2015 What Was The Date Of Your Most Recent Tobacco Screening? 08/28/2024 Information not available 08/28/2024 How Many Children Do You Have? 2 Information not available 01/07/2015 Performs Monthly Self-breast Exam? Yes Information no t available 01/07/2015 Do You Use Protection During Sex? No Information not available 01/07/2015 What Is Your Relationship Status? Information not available 01/07/2015 Do You Use Your Seat Belt Or Car Seat Routinely? Yes Information not available 01/31/2022 Seat Belts Used Routinely Yes Information not available 01/07/2015 Are You Sexually Active? Yes Information not available 01/07/2015 Do You Have Smoke And Carbon Monoxide Detectors In Your Home? Yes Information not available 02/25/2021 Are You Passively Exposed To Smoke? Yes Information no t available 02/25/2021 Do You Or Have You Ever Used Smokeless Tobacco? Never Used Smokeless Tobacco Information not available 06/09/2020 How Much Tobacco Do You Smoke? 0.5 PPD Information not available 08/15/2023 General Stress Level High Med-high Information not available 10/17/2019 Do You Feel Stressed (tense, Restless, Nervous, Or Anxious, Or Unable To Sleep At Night)? [id number] Information not available 02/25/2021 Do You Use Any Illicit Or Recreational Drugs? No Information not available 02/25/2021 Do You Use Sunscreen Routinely? Yes Information not available 01/07/2015 Has Tobacco Cessation Counseling Been Provided? Yes Information not available 07/21/2022 On What Date Was Tobacco Cessation Counseling Provided? 08/28/2024 Information not available 08/28/2024 How Many Years Have You Smoked Tobacco? 30 Information not available 10/29/2014 Do You Or Have You Ever Used Any Other Forms Of Tobacco Or Nicotine? No Information not available 02/25/2021 Sex: Female Functional Status Question Answer Note LastModified by Organizat ion Details LastModified Time Are you able to care for yourself? approved for SS Disability due to mental issues and inability to use right hand, her dominant hand [email or web address] Information not available 05/30/2016 What is your exercise level? Occasional Information not available 01/07/2015 Mental Status None recorded. Family History Relationship Description Onset Age of this Age Resolved Age Notes LastModified by Organization Details LastModified Time Father Malignant tumor of lung [email or web address] Not available 2015 15:00:13 Mother Hypertensive disorder [email or web address] Not available 2015 15:00:13 Mother Malignant tumor of lung 79 Anxiou s, but weight loss starte d before mother dx'd with lung cancer - she is caring for her. Mother January 2017 [email or web address] Not available 01/26/2017 14:11:24 Notes:Nothing new 02/01/24, 1 10/28/23 Medical History Condition Response Heart Problems N Other N Breast Cancer N Thyroid Problems N Kidney or Bladder Problems N Lung Disease N GI Problems N Depression Y Acne N Eating Disorder N Breast Problem Y Anemia N Anesthesia Complications N Headaches/Migraines N Ovarian Cancer N Diabetes N Anxiety Disorder Y Blood Transfusions N Arthritis N Polyps N Infertility N Acid Reflux (GERD) N Cancer N Stroke N Abuse/Domestic Violence N Asthma N Endometriosis N High Cholesterol N Hepatitis N Heart Disease N Fibromyalgia N Pre-Eclampsia N Hypertension N Osteoporosis N Kidney Disease N Gynecological History Statement/Question Response Sexually Active? Y STIs/STDs N HPV Vaccine N Sexual Problems? Y Age at Menarche 14 Current Control Method Hysterectom y Most Recent Mammogram 12/01/2014 Age at First Child 27 Obstetrics History GPAL:G 2 P 2 0 0 2 Type Value Multiple Births 0 Full Term 2 Induced 0 Spontaneous 0 Premature 0 Living 2 Ectopics 0 Total 2 Immunizations Vaccine Type Date Status Note Provider Nam e and Address Organization Details Recorded Time Influenza, split virus, quadrivalent, preservative 8 completed Not Available [facility] 11/09/2019 02:39:48 Influenza, split virus, quadrivalent, preservative 9 completed Not Available [facility] 11/09/2019 02:38:46 Pneumococcal conjugate PCV 13 9 completed Not Available [facility] 11/09/2019 02:38:47 Influenza, high-dose, quadrivalent, PF 0 completed Mela Carballo [place], [place] [facility] 09/21/2020 15:40:44 COVID-19, mRNA, LNP-S, PF, 100 mcg/0.5mL dose or 50 mcg/0.25mL dose 1 completed Tomás Tracey [place], [place] [facility] 02/01/2021 16:25:33 COVID-19, mRNA, LNP-S, PF, 100 mcg/0.5mL dose or 50 mcg/0.25mL dose 1 completed Tomás Tracey [place], [place] [facility] 03/01/2021 16:35:54 Influenza, split virus, quadrivalent, preservative 1 completed DARIAN [place] [facility] 09/06/2021 12:18:26 Pneumococcal conjugate PCV20, polysaccharide [id number] conjugate, adjuvant, PF 2 completed JOSE MANUEL MEDINA NP Attn: Accounting,[address], [place], [address], [place] [facility] 07/24/2022 22:16:59 Influenza, high-dose, trivalent, PF 4 completed Florecita Cat R[place], [place] [facility] 08/28/2024 13:02:05 COVID-19, mRNA, LNP-S, PF, 50 mcg/0.5 mL 4 completed Florecita Cat R[place] [facility] 08/28/2024 13:02:38 Past Encounters Encounter ID Performer Location Encounter Start Date Encounter Closed Date Diagnosis/Indication Diagnosis SNOMED-CT Code Diagnosis ICD10 Code Diagnosis Note [id number] Valeri ([employer]) [address] [place] [address] 10/29/2014 11:22:15 10/29/2014 15:59:21 Dyspareunia [id number] Pt with sx x 6 mo. and they are getting worse. It is interferin g with her relationsh ip with her . Since pt. is s/p TANIKA/BSO and has some fullness and pain on the right side, will get a CT scan to look for anatomical abnormalit ies. RTO PRN + [address] scan for results and AE. Pain of breast 52992301 Pt reassured pain is likely due to trauma when she bumped it. Advised rest and ice if tolerable[place] [id number] Ranjana Trammell ([employer]OSPECTOR) [address] [place] [address] 11/13/2014 08:27:47 11/13/2014 11:37:15 Gynecologic examination [id number] Normal clinical breast exam. Pelvic exam significan t for pain but no masses or abnormalit ies palpated. Pt. not a candidate for estrogen therapy d/t smoking, dwp. Screening for malignant neoplasm of breast 282168601 Venereal d isease screening 826963231 Pt. had a vaginal culture done last visit that was positive for BV but negative for everything else, dwp. STD panel ordered. RTO one week for results Bacterial vaginosis 663507747 Tobacco user 381186131 P t. encouraged to quit smoking. Pt. also counseled she cannot take estrogen d/t risk of blood clots with smoking and estrogen therapy. Pt. states she will quit smoking then. Dyspareunia [id number] CT scan was negative, dwp. Unlikely possibilit y of BV causing pain d/w pt. Will Rx a course of flagyl. [id number] [facility] [address] [place] [address] 12/31/2014 09:45:34 01/01/2015 17:12:05 Headache 01865767 Tremor 87914296 Screening for osteoporosis 300707519 Mixed anxi ety and depressive disorder 043484952 [id number] [facility] ([facility]OR) [address] [place] [address] 01/07/2015 11:21:06 01/07/2015 12:11:26 History of hematuria 102005564 Pt. does have a h/o kidney stones but did not have that kind of pain with this bleeding. [id number] Crista Roman [facility] [address] [place] [address] 02/06/2015 11:27:14 02/09/2015 12:21:09 Osteoporosis 44514432 Tscores 3.0-3.1 spine/hip neck [id number] [facility] [address] [place] [address] 04/13/2015 10:26:00 04/17/2015 13:59:32 Sinusitis 21034571 Pulmonary emphysema 58071487 Ex-smoker 4915961 Mixed anxi ety and depressive disorder 105797879 [id number] [facility] [address] [place] [address] 10/08/2015 16:55:27 10/21/2015 10:13:52 Mixed anxiety and depressive disorder 516845509 F41.8 Multiple n odules of lung 978529395 J98.4 Pulmonary emphysema 8743 3001 J43.9 Chronic low back pain 27 4576367 M54.5 [id number] Delfina Kothari [facility] ([facility]) [address] [place] [address] 12/09/2015 14:22:30 12/09/2015 15:04:01 Upper respiratory infection 09668332 J06.9 Chronic ob structive pulmonary disease 71382559 J44.9 [id number] [place] [address] 02/10/2016 15:58:51 02/25/2016 10:53:58 Generalized anxiety disorder 96940757 F41.1 Chest pain 79665629 R07. 9 [id number] [place] [address] 5 05/30/2016 11:21:18 06/02/2016 11:56:11 Pulmonary emphysema 20961618 J43.9 Chest pain 08581225 R07. 9 Mixed anxi ety and depressive disorder 689406295 F34.1 Headache 20767344 R51 [id number] [place] [address] 5 07/13/2016 14:26:03 07/14/2016 16:25:24 Acute exacerbation of chronic obstructive pulmonary disease 228669349 J44.1 Ex-smoker 2697197 Z87.89 1 quit smoking [id number] [address] 11/21/2016 10:51:02 11/23/2016 17:21:35 Generalized anxiety disorder 12541830 F41.1 Mixed anxi ety and depressive disorder 662414168 F34.1 Multiple n odules of lung 717361923 R91.8 Unexplaine d weight loss 170455758 R63.4 Fatigue 80297671 R53.83 Positive s creening for depression on PHQ-9 (Patient Health Questionnaire 9) 4360503147 81795 Z13.89 11/21/16 - PHQ 9 = 21, no SI/HI, in counseling and on antidepres sants [id number] [address] [address] 01/26/2017 11:29:37 01/31/2017 17:54:16 Generalized anxiety disorder 83078522 F41.1 Difficulty passing urine 016728933 R39.[id number] [address] 03/22/2017 12:05:46 03/27/2017 14:07:49 Chronic low back pain 488480280 M54.5 Chronic ob structive pulmonary disease 88442665 J43.8 Mixed anxi ety and depressive disorder 844708636 F34.1 Tobacco de pendence syndrome 77369870 F17.760 [id number] Azalea Howard [facility] [address] [place] [address] 05/16/2017 15:17:57 05/17/2017 14:47:51 Increased frequency of urination 407232195 R35.0 [id number] ISMAEL JC NP [facility] [address] [place] [address] 05/30/2017 10:42:18 05/31/2017 11:09:05 Painful urging to urinate 92986080 R30.0 [id number] ISMAEL JC NP [address] [address] 10/02/2017 14:38:11 10/03/2017 17:37:18 Generalized anxiety disorder 54089706 F41.1 Migraine 88168448 G43.00 9 [id number] ISMAEL JC NP [address] [address] 01/01/2018 11:59:45 01/01/2018 15:47:39 Chronic obstructive pulmonary disease 51616814 J41.0 Tobacco user 793537247 Z 72.0 Mixed anxi ety and depressive disorder 330650996 F41.8 [id number] ISMAEL JC NP [address] [address] 02/19/2018 15:17:22 02/19/2018 17:02:28 Acute conjunctivitis 01403328 H10.803 [id number] ISMAEL JC NP [address] [address] 04/03/2018 11:55:49 04/04/2018 10:35:49 Mixed anxiety and depressive disorder 089878126 F41.8 Chronic constipation 236 136649 K59.09 Adult heal th examination 867478421 Z00.00 [id number] Osiris Blankenship MA [address] [address] 04/09/2018 15:00:36 04/11/2018 16:04:17 Adult health examination 654437077 Z00.00 [id number] ISMAEL JC NP [place] [address] 5 06/29/2018 14:14:15 06/29/2018 15:38:30 Abdominal pain 00396351 R10.11 [id number] Liz Doherty APN, SAKSHI [place] [address] 5 10/01/2018 11:49:31 10/02/2018 15:34:31 Administration of influenza vaccine 64227469 Z23 [facility] handout provided Dysuria 19343381 R30.0 urine dip pos leuk, will send for culture and notify pt if abx change needed, will start macrobid; dwp to increase fluids and RTO if increase in pain or fever or other changes occur. Generalize d anxiety disorder 96141949 F41.[address] Jeffers, takes xanax prn,not taking as much as it is rx'd, will give partial refill, dwp needing to use only prn and not as routine med, also to have Dr Jeffers refill in future [id number] Liz Doherty APN, SAKSHI [place] [address] 5 05/06/2019 11:51:12 05/07/2019 14:03:13 Prehypertension 836923712 R03.0 BP in pre-hypert ensive range, dwp risk, reducing salt and increasing exercise Pain of ri ght shoulder joint 5325679678 3234978 M25.511 pain to right upper arm/should er, dwp need to repeat xray to compare to prior fracture Chronic ob structive pulmonary disease 06895301 J44.9 no inhaler use currently Mixed anxi ety and depressive disorder 442646521 F41.8 pt sees Pratik ordonez, states she feels fine, may be just the pain is getting to her, [id number] AUDREY BECKMAN [place] [address] 09/12/2019 11:44:35 09/16/2019 09:37:07 [id number] JOSE MANUEL MEDINA NP [address] [place] [address] 10/17/2019 13:49:11 10/18/2019 09:06:22 Pain of right shoulder joint 4775261216 5602117 M25.511 - Patient scheduled for rotator cuff surgery on 11/01/2019 - patient in need of pulmonary and cardiology evaluation to be cleared for surgery due to history of COPD/Emphy sema and chest pain. patient stated she ws last seen by a cardiologi st 3 year ago and a Pulmonolog ist 4 years ago. Patient stated she is scheduled to have and EKG and Chest xray at [facility]. Tobacco user 237003920 Z 72.0 - Patient is a current cigarette smoker, states he smokes 1/2pk per day and currently has no desire to quit.- Patient advised in the derogatory effects of smoking- Counseling for smoking cessation completed Chronic ob structive pulmonary disease 07641642 J44.9 - Patient stated she does not have any issues with her breathing and she has not had an inhaler in years. [id number] AUDREY BECKMAN [place] [address] [place] [address] 01/22/2020 12:03:24 01/23/2020 12:49:27 Suspected COVID-19 468624582 Z03.586 [id number] AUDREY BRYSON [address] [place] [address] 05/25/2020 10:34:55 05/26/2020 07:45:17 Suspected COVID-19 940052340 Z03.472 [id number] AUDREY BECKMAN [facility] [address] [place] [address] 05/26/2020 15:10:46 05/27/2020 07:27:36 Pneumonia 483550515 J18.9 - Education provided on cough, s/s, treatment, and need for follow up COVID screening and test due to recent exposure. - Patient instructed to self quarantine for the next 10 days. Encourage to only leve house if medically necessary - Patient encourage to monitor symptoms and seek emergency medical care if she developes difficulty breathing, chest pain or pressure, or any concerning symptoms [id number] AUDREY BECKMAN [facility] [address] [place] [address] 06/09/2020 11:12:34 06/10/2020 06:21:49 Respiratory tract congestion and cough 864021989 R05 difficulty breathing inhaler use couple times/day feels like she has been punched in the chest [id number] JOSE MANUEL MEDINA NP [facility] [address] [place] [address] 09/21/2020 14:03:31 09/22/2020 06:06:41 Tobacco user 432952466 Z72.0 - Patient is a current cigarette smoker, states she smokes 1/4-1/2pk per day and currently has no desire to quit.- Patient advised in the derogatory effects of smoking- Counseling for smoking cessation completed Administra tion of influenza vaccine 42161968 Z23 - recommende d annual influenza vaccinatio n Pre-surger y evaluation 722559447 Z01.818 - Patient is schedule for right shoulder arthroscop y with rotator cuff repair on 09/23/2020- Reviewed EKG, Chest Xray, and Labs obtained by orthopedic surgeon- Given patient's history of COPD/Emphy sema and multiple pulmonary nodules, f/u evaluation with pulmonolog ist recommende d prior to surgery. [id number] Kaylee Campbell LPN [address] [facility] [address] [place] [address] 02/01/2021 11:07:23 02/02/2021 12:16:18 Administration of SARS-CoV-2 antigen vaccine 775360534 Z23 [id number] JOSE MANUEL MEDINA NP [facility] [address] [place] [address] 02/25/2021 16:23:00 02/26/2021 13:24:47 Upper respiratory infection 74650437 J06.9 - Drink lots of fluids, mainly water. - Run a cool-mist humidifier in your room at night. - For sore throat, gargle warm salt water. - Get extra rest and do not over-exert yourself. - Do not mix multiple medication s with similar ingredient s (for instance Theraflu Non-drowsy and Tylenol Sinus). Doubling up on acetaminop hen and/or decongesta nts such as pseudephed rine can be dangerous. - Do not take decongesta nts if you have high blood pressure [id number] Kaylee Campbell LPN [facility] [address] [place] [address] 03/01/2021 14:50:58 03/15/2021 15:57:55 Administration of SARS-CoV-2 antigen vaccine [id number] Z23 [id number] AUDREY BECKMAN 14 IM 4 [facility] [place] [address] 06/22/2021 08:33:49 06/23/2021 07:55:41 Respiratory tract congestion and cough 331053683 R05 D/w pt the current pandemic of COVID-19 and the increases spread of the Delta Variant.Re commended patient go get COVID tested and to self isolate until she receives negative results. - Always present to ER or Urgent Care with any progressio n of/alarmin g symptoms, significan t changes in symptoms or any concerning or urgent matters [id number] AUDREY BECKMAN 14 IM 4 [facility] [place] [address] 09/06/2021 11:38:50 09/07/2021 23:50:12 Administration of influenza vaccine 42127547 Z23 - recommende d annual influenza vaccinatio n Pre-surger y evaluation 920382678 Z01.818 - Patient is schedule for total right shoulder replacemen t on 10/07/2021 - EKG, Chest Xray, and Labs to be obtained by orthopedic surgeon per patient- Given patent's history of COPD/Emphy sema and multiple pulmonary nodules, f/u evaluation with pulmonolog ist recommende d prior to surgery. [id number] Lacey Steel [facility] [address] [place] [address] 01/31/2022 09:12:34 02/02/2022 17:01:55 Bronchitis 30256712 J40 Advised on the causes of bronchitis and the typical course of the disease. Continue Proair inhaler as prescribed and ATB. Discussed signs of respirator y compromise . Advised on reasons to call or follow up over the next few days. Verbalized understand ing. [id number] AUDREY BECKMAN [facility] [address] [place] [address] 03/22/2022 14:05:42 03/23/2022 15:12:39 Bronchitis 18337059 J40 Advised on the causes of bronchitis and the typical course of the disease. Continue Proair inhaler as prescribed and ATB. Discussed signs of respirator y compromise . Advised on reasons to call or follow up over the next few days. Verbalized understand ing. Left flank pain 12900325 9 R10.9 [id number] JOSE MANUEL MEDINA NP [place] [id number] 5 06/22/2022 10:22:08 06/23/2022 20:00:11 Urge incontinence of urine 17202864 N39.41 Multiple bruising 039419 006 T14.8XXA bilateral hands Tobacco user 124735933 Z 72.0 - Patient is a current cigarette smoker, states she smokes 1/4-1/2pk per day and currently has no desire to quit.- Patient advised in the derogatory effects of smoking- Counseling for smoking cessation completed [facility] 302848480 E 16.2 [id number] JOSE MANUEL MEDINA NP [place] [id number] 5 07/21/2022 11:35:57 07/25/2022 11:59:17 Left flank pain 441876098 R10.9 Administra tion of pneumococcal vaccine 62742744 Z23 - recommende d annual pneumococc al vaccinatio n [id number] JOSE MANUEL MEDINA NP [place] [id number] 5 09/19/2022 11:14:56 09/20/2022 14:08:34 Left flank pain 734321424 R10.9 Multiple n odules of lung 792087644 R91.8 [id number] JOSE MANUEL MEDINA [place] [id number] 5 12/16/2022 10:28:32 12/19/2022 13:25:54 Edema of lower extremity 153059522 R60.0 - Limit the amount of salt in your diet- Whenever you are resting, raise your legs up above heart.- Walk around to increase the blood flow in your lower legs.- RTC if your swelling is getting worse, or you have new or worsening pain in your legs. [id number] MD Dawna Galicia 14 IM 4 [facility] [place] [address] 02/10/2023 13:56:19 02/13/2023 17:17:09 Spinal stenosis of lumbar region 33568284 M48.061 Will L4-L4 spinal fusion. here for surgical clearance. Has form with her.- will get surgical clearance labs CBC, CMP, PT/PTT, INR, A1c, EKG, CXR- Just we had PFT studies which have reviewed. Swelling o f bilateral lower limbs 880631525 M79.89 Has had trace swelling in her lower ext for the last 2 months. Was documented on exams prior to my care. No SOB, Cough, palp. no JVD, no pillow orthopnea. - Will give short burst of Lasix 3d M/W/F and have pt report how she feels. Will not continue as senior living medication . Most likely venous insufficie ncy. At [facility] risk of polypharmacy 386049591 Z91.89 Will send to pharmacy to evaluate if needs to be on all these medication s. Pt reports she has been on them for almost 17 years.- Pt seemed like she didn't want to stop taking any of her medication s.- Has daughter whom she lives with who also has polypharm and similar complaints . [id number] MD Dawna Bailey 14 IM 4 [facility] [place] [address] 05/08/2023 09:52:27 05/11/2023 13:41:05 History of spinal fusion [id number] 9107 Z98.1 S/p Spinal Fusion L4-L5 02/2023, Dr. Ac preformed procedure. On follow up discussed continued pain and possible additional procedures .- Meds: oxycodone, methocarba mol, baclofen, tylenol, Celecoxib, - Surgical site looks clean and not infected.- Continue to follow with Dr. Ac. Smoker 96851393 F17.200 Unintentio nal weight gain 9661033083 78690 R63.5 Pt reports 10 lb weight gain despite decreased food consumptio n. She is concerned about the weight gain.- BMI: 21.3- Have told pt not able to rx meds for weight loss, advised diet and exercise as tolerated. - Will rule out medical causes of weight gain. [id number] MD Dawna Galicia 14 4 [facility] [place] [address] 07/17/2023 15:24:13 07/19/2023 15:01:35 Pain in right foot 5808296227 81010 M79.671 x 9 d duration s/p urgent care visit with mild improvemen tXR await results from urgent care - per pt no breaks or abnormalit ies reported PE showed tenderness at dorsum of 2-3 MT - swelling noted - mild ecchymosis notedlow suspicion for kaur's neuroma since acute injury likely causelow suspicion for broken bones due to negative [place] criteria and able to ambulate discussed shoe to wear outside and walk barefoot in house to maintain strength of foot muscles and prevent atrophydis cussed follow up in 2 weeks if no improvemen tibuprofen or tylenolRIC E - rest ice compressio n elevationp t expressed understand ing [id number] MD Dawna Roldan 14 4 [facility] [place] [address] 08/15/2023 16:49:33 08/24/2023 09:09:05 Body mass index 20-24 - normal 377461001 Z68.21 Fracture of foot 0534838 5 S92.902D - patient presented on 07/17/23 after foot injury, was subsequent ly found to have nondisplac ed 2nd metatarsal midshaft fracture with callous formation consistent with healing on repeat foot x-ray ordered for unrelentin g pain- was advised of result and educated on ibuprofen or tylenol for pain control withRICE - rest ice compressio n elevation- advised to look into ordering a [employer] walking boot online or [address]/[employer] ens in store as it was not offered at her usual pharmacy and she has no insurance- advised to stay off foot as much as possible and educated on the bone requiring 6-8 weeks to heal and she could expect some amount of pain for that time frame- told to contact PCP if pain changes in amount or nature [id number] MD Dawna Bailey [address] [place] [address] 02/01/2024 13:51:50 02/22/2024 09:30:16 Smoker 64363192 F17.200 Pt is female Current Smoking habit: daily .5-1 ppd Number of years smoked: 20 Total pack years: 20 Other Smoking habbits: none Interested /Willingne ss to quit: not now Reason for quitting in pt words: will think about it Previous attempts to quit: quit when had her kids Willing to set a Quitting Date: no EDUCATION Have educated on health risks of smoking: Including Increased risk of lung cancer, throat cancer, and other respirator y diseases. Elevated risk of heart disease, stroke, and peripheral vascular disease. Damage to the respirator y system, leading to chronic obstructiv e pulmonary disease (COPD) and emphysema. Higher likelihood of developing various cancers, including bladder, kidney, pancreas, and cervical cancer. Negative effects on fertility and reproducti ve health, including erectile dysfunctio n in men and complicati ons during . Have educated on the Benefits of Quitting: Improved lung function and reduced risk of respirator y infections and conditions such as COPD and emphysema. Decreased risk of heart disease, stroke, and peripheral vascular disease. Enhanced sense of taste and smell, as well as improved overall physical fitness and stamina. Increased life expectancy and reduced risk of premature . Better financial savings due to not spending money on cigarettes , leading to improved quality of life and greater disposable income. Positive impact on family members and loved ones by reducing exposure to secondhand smoke and serving as a positive role model. Enhanced appearance , including healthier skin, teeth, and hair, as well as reduced risk of premature aging. Smoking cessation: Educated and offered smoking cessation options HAS DECLINED. - Informed of 1-800- QUITNOW number for free patches Qualify for Lung cancer screening: yes Hx of lung cancer screening: yes Has nodules noted that have been advised to be followed with yearly screening. The USPSTF recommends annual screening for lung cancer with low-dose computed tomography (LDCT) in adults aged 50 to 80 years who have a 20 pack-year smoking history and currently smoke or have quit within the past 15 years. Screening should be discontinu ed once a person has not smoked for 15 years or develops a health problem that substantia lly limits life expectancy or the ability or willingnes s to have curative lung surgery. Community acquired pneumonia 630940276 J18.9 Most likely CAP. Does have history of COPD is possible could be exacerbati on but pt says this feels like she is sick. Flu and COVID [id number]: 1 will treat as OP Plan- treat with 5 days of augmentin and 5d azithromyc in- continue supportive care- advised no smoking- advised update vaccines when feeling better- red flag/retur n precaution s discussed Excessive daytime sleepiness - normal night sleep 650180477 G47.19 Increased day time fatigue and sleeping. ESS 22 - following with neurology whom she has an apt to address. - advised not to drive Onile vehicle. Pt reports hasn't driven in years. [id number] MD aDwna Roldan 14 IM 4 [facility] [place] [address] 05/06/2024 09:47:36 05/25/2024 10:10:50 Pain of right breast 5872312676 N64.4 Trauma to right breast few weeks ago, persistent pain since then. History of breast implants. Previously sent for diagnostic mammogram, but in need of updated order. Muscle weakness 93200817 M62.81 Acute symptoms resolved with course of steroids. Currently following- up with neurology for further assessment and management . [id number] MD Dawna SERRA 14 IM 4 [facility] [address] [address] [place] [address] 08/28/2024 11:18:28 09/09/2024 10:49:11 Administration of influenza vaccine 77112763 Z23 Patient due for flu vaccine. Discussed risks and benefits of administra tion when feeling sick, ultimately would benefit more from protection against flu. Administra tion of SARS-CoV-2 recombinant spike protein antigen vaccine 9443224264 Z23 Patient due for covid vaccine. Productive cough 9601807 5 R05.9 DDX bronchitis , URI, allergies, COPD. Likely multifacto rial. Trial of prednisone and antibiotic s as above. Bronchitis 06399714 J40 Productive cough worsened from baseline and lasting few months suspicious for bronchitis . Other differenti als as below. Lungs sounds overall clear with no wheezes or rhonchi, which is reassuring . Transmitte d upper airway sounds. Patient also has suspected myasthenia gravis currently being worked up by neurologis t, which may be contributi ng to SOB. - continue course of amoxicilli n as prescribed by urgent care- continue prednisone as prescribe by urgent care, will extend course an additional 5 days given severity of symptoms and potential underlying myasthenia gravis- defer to neurology to evaluate need for chronic steroids Immunization due 7469229 08 Z28.39 Patient due for TDaP vaccine. Frequent night waking 42 4337582 G47.8 Frequent waking during the night, does not feel rested, unsure if snoring or choking. Also with chronic fatigue, weakness, COPD, and cough. Will send for split night study to rule out PARRISH. Smoker 16958616 F17.200 Has cut down to 2 cigarettes daily. Encouraged to continue cutting down. Health Concerns Section Related Observation LastModified by Organization Detai ls LastModified Time None Recorded Concern Status LastModified by Organization Details LastModified Time None Recorded Advance Directives Directive N: disability Payers Encounter Date Sequence Insurance Name Policy Number Policy Shaikh Covered Member ID Shaikh Member ID Guarantor Name 07/17/2023 1 [employer] (MEDICARE REPLACEMENT/A DVANTAGE - PPO) Christy A [place] [id number] Christy [place] 08/15/2023 1 *SELF PAY* Le sa [place] 02/01/2024 1 *SELF PAY* [place] sa [place] 05/06/2024 1 *SELF PAY* [place] Notes Date Note Type Note Provider Name and Address Organization Details Recorded Time 07/17/2023 text/html 68 y/o F with a h/o low back pain on oxycodone 5 mg TID presents to the clinic for follow up of 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 [facility] - pt reports missed the last step on stairs and inverted her right ankle 07/07/23 - urgent care [facility]. Pain is located at the distal 2-3 metacarpal area on the dorsum of foot 7/10 pain constant, dull, localized with intermittent sharp and stabbing 8/10 pain with ambulation. Endorses improved pain overall. Patient has tried ice, oxycodone (rx for back pain however no relief for foot pain). Denies radiation, paresthesias, cool limb, denies talo calcaneal or talotibial area. Pt was worked up with x ray and was discharged with orthopedic shoe at urgent care. Stated no breaks or abnormal results seen - dx with sprain/strain. Da De La Rosa MD Attn: Accounting,[address] [facility], [place], [address], [facility] 07/19/2023 14:13:44 08/15/2023 text/html Patient was seen on 07/17/[address] Rahman for pain in foot, was seen at urgent care prior for same reason was found to not have a fracture on x-ray at that time, but later called back due to increasing foot pain at which time a repeat foot x-ray was ordered that showed a nondisplaced 2nd metatarsal midshaft fracture with callous formation consistent with healing. She presented today for further follow up as she stated she had not been informed of results. Mary Ann Bauman MD Attn: Accounting,[address] [facility], [place], [address], [facility] 08/21/2023 10:34:23 02/01/2024 text/html CC: sick visit Sick Onset: 2 weeks Fevers: Tmax: 101.5 Pluracy, SOB, pain in flanks with cough productive yellow green, CONKLIN, n/v./ d Sleep and tylenol make better Aggravating: walking, exertion, anything seems worse smoking: yes sick contacts: no no travel Vaccines are not UTD. No antibiotics in the last three months Excessive daytime sleeping Tired all the time, for the last year or maybe longer. She reports she can fall asleep all the time during sentences. all she does is sleep. No weight loss. No history of cancer. Has been sick for last 2 weeks but denies fever, chills, night sweats before started. Doesn't drive ESS: 22 Has appointment with neurologist to discuss . Previously following for migraines. Bernadette French MD Attn: Accounting,[address] [facility], [place], [address], [facility] 02/19/2024 12:07:39 05/06/2024 text/html Christy is a 69 y/o here for hospital follow up. Per discharge summary:Patient was admitted on 04/16/2024 for evaluation of left-sided neck pain and tightness. Physical examination, laboratory testing imaging studies were performed. Neurology consultation was obtained. And supportive management was initiated with IV fluid and IV steroid therapies. CT imaging of the neck and chest were performed to assess for possible presence of cancerous lesion. From which, patient was found to have pulmonary nodules that were seen previously. 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 With supportive care, neck tightness in weakness symptoms have stabilized. Per coordination with neurologist, patient will have follow-up of lab testing for myasthenia gravis performed in clinic setting with neurologist. In addition, patient is will have further adjustments to home medications coordinated with her psychiatrist by neurologist. As part of discharge plan of care, patient will complete course of prednisone taper. Patient follow-up with PCP in 1 week and with neurologist in 1 week. Outpatient psychiatry follow up at [facility] to be performed in 1 week as well. Interval history:Still awaiting results from neurologist for further assessment of MG.Finished steroid 4 days ago, symptoms still well-controlledPre viously felt shaky, head wooshing Reports a few weeks ago, choked on food and got heimlich from grandson, felt pop on right side of breast (history of breast implant)Still with pain on right side of breast, awaiting diagnostic ultrasound and mammogram Sees Dr. Mae, got PFTAlso sees ortho, takes Gurley Sleeps well at nightmoved in with son and daughter in law, helps clean the house Mary Ann Bauman MD Attn: Accounting,[address] [place], [address], [place] [facility] 05/19/2024 17:41:19 08/28/2024 text/html Christy is a 69 y/o here for follow-up on suspected myasthenia gravis and discuss a productive cough. Reports she feels the same, waiting for appointment with neuro next week. Overall feels yucky. Also reports several months of productive cough, headache, congestion, sore throat, shortness of breath, wheezing, subjective fever, chills.Using albuterol TIDHasn't had symbicort x3 days, unable to machine operator picker because of rainWent to urgent care few days ago, given amoxicillin and prednisone 20 mg BID, 4 leftModest improvement since being on steroidsAlso trying nyquil and dayquil.Staying hydrated and eating without difficulty. History of COPD and cigarette use, down to 2 daily. Also reports frequent waking during the night, does not feel rested, unsure if snoring or choking. CORINNA WHITLEY MD Attn: Accounting,[address] [facility], [place], [address], [facility] 09/08/2024 21:33:32 OBGyn Episode Ob Episode Information Episode Created Date Number of Fetuses Patient Bloodtype Patient rh Status Prepregnancy Weight lbs Domestic Partner Domestic Partner Phone Father Name Scaler Packer Status 10/29/19 15 1 CLOSED Fetus Data First Name Last Name Admitted to NICU Weight (g) Sex Living Outcome Pediatric Complications Fetus ID Race Codes Race Delivery Type 2748.76 752 M [id number] Vaginal Only Dave Calculation Initial Dave Date Initial Exam Date Initial Exam Provider Initial Ultrasound Date Last Menstrual Period Date Ultra Sound Weeks Gestation 0 Eighteen To Twenty Week Dave Update Ultra Sound Date Fundal Height At Umbil Quickening Date Ultra Sound Latest Weeks Gestation Final Dave Confirmed By Final Dave Confirmed Date Final Dave Date Ultra Sound Latest Days Gestation 0 0 Menstrual History Last Menstrual Date Menses Monthly On Bcp Conception Prior Menses Frequency Hcg Plus Date Menarche Onset Age Delivery Information Delivery Date Delivery Type Labor Anesthesia Weeks Gestation Incision Type Labor Labor Length Hrs Delivered By Post Complications Tubal Sterilization Discharge Date Comments 6 Discharge Information Feeding Method Contraceptive Method Maternal HG B and HCT Levels Ob Episode Information Episode Created Date Number of Fetuses Patient Bloodtype Patient rh Status Prepregnancy Weight lbs Domestic Partner Domestic Partner Phone Father Name Scaler Packer Status 10/29/19 15 1 CLOSED Fetus Data First Name Last Name Admitted to NICU Weight (g) Sex Living Outcome Pediatric Complications Fetus ID Race Codes Race Delivery Type 2748.76 752 M 6162 Vaginal Only Dave Calculation Initial Dave Date Initial Exam Date Initial Exam Provider Initial Ultrasound Date Last Menstrual Period Date Ultra Sound Weeks Gestation 0 Eighteen To Twenty Week Dave Update Ultra Sound Date Fundal Height At Umbil Quickening Date Ultra Sound Latest Weeks Gestation Final Dave Confirmed By Final Dave Confirmed Date Final Dave Date Ultra Sound Latest Days Gestation 0 0 Menstrual History Last Menstrual Date Menses Monthly On Bcp Conception Prior Menses Frequency Hcg Plus Date Menarche Onset Age Delivery Information Delivery Date Delivery Type Labor Anesthesia Weeks Gestation Incision Type Labor Labor Length Hrs Delivered By Post Complications Tubal Sterilization Discharge Date Comments 01/01/198 1 Discharge Information Feeding Method Contraceptive Method Maternal HG B and HCT Levels
== END 2024-12-17 13:26 | disposition home or self-care (01) ==
PROVIDERS: Emergency Provider Nurse Practitioner
DX: S20.221A Contusion of right back wall of thorax, initial encounter (principal); S30.0XXA Contusion of lower back and pelvis, initial encounter; S70.01XA Contusion of right hip, initial encounter; W10.9XXA Fall (on) (from) unspecified stairs and steps, initial encounter; S61.412A Laceration without foreign body of left hand, initial encounter; Z87.891 Personal history of nicotine dependence; I10 Essential (primary) hypertension; F41.9 Anxiety disorder, unspecified; F32.A Depression, unspecified
CPT/HCPCS: 71101; 72220; 73502; 99214; G0463

== ENCOUNTER 2025-03-26 09:08 | Emergency (ER) | payer MEDICARE, SELFPAY ==
--- OUTSIDE RECORDS SUMMARY | 2025-03-26 09:12 | XMS_ITS | Encounter Summary ---
Author Organization [facility] Address [address] [address] Phone Care Team Providers Care Fast Brim Pouncer Name Role Phone Mac Sher MD Unavailable [phone] Robert Mae MD Unavailable Maryann El RESULTS ENGINEER, COT ASSEMBLER Unavailable + [phone] Germania Navarro RESULTS ENGINEER, WOOD VENEER TAPER Unavailable Leny Morales MD Unavailable [phone] Theodora Berry RESULTS ENGINEER, WOOD VENEER TAPER Primary Care Provider [phone] Reason for Visit * Reason Onset Date Comments Advice Only 03/25/2025 Sore Throat 03/25/2025 Generalized Body Aches 03/25/2025 Headache 03/25/2025 Fever 03/25/2025 Encounter Details Date Type Department Care Team (Late st Contact Info) Description 03/25/2025 Nurse Triage [facility] [address] [place] [address] Theodora Berry, RESULTS ENGINEER, WOOD VENEER TAPER 2 [facility] [address] [place] [address] Advice Only; Sore Throat; Generalized Body Aches; Headache; Fever Social History Tobacco Use Types Packs/Day Years Used Date Smoking Tobacco: Former Cigarettes 0.5 25 Smokeless Tobacco: Never Comments:occassional Alcohol Use Standard Drinks/Week Comments Not Currently 0 (1 standard drink = 0.6 oz pur e alcohol) [facility] Utilities Answer Date Recorded In the past 12 months has e electric, gas, oil, or water company threatened to shut off services in your home? Yes 01/19/2025 Social Connection and Isolat ion Panel [NHANES] Answer Date Recorded In a typical week, how many times do you talk on the phone with family, friends, or neighbors? More than three times a week 01/19/2025 How often do you get togethe r with friends or relatives? More than three times a week 01/19/2025 How often do you attend chur ch or confucianism services? Never 01/19/2025 Do you belong to any clubs o r organizations such as yazdanism groups, unions, fraternal or athletic groups, or school groups? No 01/19/2025 How often do you attend meet ings of the clubs or organizations you belong to? Never 01/19/2025 Are you , , di vorced, , never , or living with a partner? 01/19/2025 AUDIT-C Answer Date Recorded Q1: How often do you have a drink containing alcohol? Never 01/19/2025 Q2: How many drinks containi ng alcohol do you have on a typical day when you are drinking? Patient does not drink Q3: How often do you have si x or more drinks on one occasion? Never 01/19/2025 Overall Financial Resource Strain (CARDIA) Answe r Date Recorded How hard is it for you to pa y for the very basics like food, housing, medical care, and heating? Hard 01/19/2025 PHQ-2 Answer Date Recorded Total Score - Questions 1-9 15 10/2024 [facility] of Occupat ional Health - Occupational Stress Questionnaire Answer Date Recorded Do you feel stress - tense, restless, nervous, or anxious, or unable to sleep at night because your mind is troubled all the time - these days? Very much 01/19/2025 Exercise Vital Sign Answer Date Recorde d On average, how many days pe r week do you engage in moderate to strenuous exercise (like a brisk walk)? 1 day 01/19/2025 On average, how many minutes do you engage in exercise at this level? 10 min 01/19/2025 Hunger Vital Sign Answer Date Recorded Within the past 12 months, y ou worried that your food would run out before you got the money to buy more. Never true Within the past 12 months, t he food you bought just didn't last and you didn't have money to get more. Sometimes true PRAPARE - Transportation Answer Date Re corded In the past 12 months, has l ack of transportation kept you from medical appointments or from getting medications? Yes 12/23 In the past 12 months, has l ack of transportation kept you from meetings, work, or from getting things needed for daily living? No 01/19/2025 Housing Stability Vital Sign Answer Dante e Recorded In the last 12 months, was t here a time when you were not able to pay the mortgage or rent on time? No 01/19/2025 In the past 12 months, how m any times have you moved where you were living? 1 01/19/2025 At any time in the past 12 m [facility], were you homeless or living in a alf (including now)? No 01/19/2025 Sexually Active Control Partners Comments Not Currently Comments No Sex and Gender Information Value Date Recorded Sex Assigned at Female 06/05/2023 10:27 AM CDT Legal Sex Female 10:21 PM CDT Gender Identity Female 06/05/2023 10:27 AM CDT Sexual Orientation Not on file documented as of this encounter Miscellaneous Notes * Telephone Encounter - Rebeka Norman RN - 03/25/2025 1:34 PM CDT SITUATION: sore throat, body aches, chills, headache BACKGROUND: Patient contacting PCP office. Patient states she started not feeling well 3 days ago. Symptoms started with chills and body aches. Per chart review, last office visit 03/10/25 ASSESSMENT: Symptom Description / Location: Sore throat Drooling, however patient reports not new, it is due to her medication Body aches Joint aches Skin hurts to touch Chills Headache, different than her typical migraine Shortness of breath with activity, has copd and states she always has that, however worse than normal Rates difficulty breathing as mild, however sitting and talking on phone feels short of breath Weight loss reported about 4lbs in the last 3 days Denies chest pain, lightheaded/dizziness, exposure or recent ill contacts Last dose of tylenol 9:30am today 03/25/25 Amoxicillin 500mg completed 10 day course 03/24/25, for her intestines Pain: Body aches /10, Constant, Aching Headache 8/10, constant, pounding Fever: Chills. Treatment / Response: tylenol with some relief. Last Menstrual Period: hysterectomy Patient's last menstrual period was 03/15/1988. RECOMMENDATION: Caller agreeable to disposition: Go to Office or Video Visit Now Care advice provided per triage guideline. Caller verbalized understanding. Patient unable to get an appointment with PCP or care teamwithin disposition. Scheduled with alternate provider in the office. All Patient Appointments Date & Time Provider Department Dept Phone 03/25/2025 2:45 PM Teena Chopra [facility] Family Medicine [facility] Arrive at: Virtual Visit [phone] 04/02/2025 10:30 AM [facility] [phone] 04/03/2025 10:00 AM Feliberto Winston [facility] Medical [facility] - Gastroenterology - [place] [phone] 04/03/2025 11:00 AM Maryann El [facility] - [facility]rology - [place] [phone] 04/22/2025 10:30 AM Theodora Berry [facility] Family Medicine [facility] [phone] Discussed utilizing [employer] to: E-check in prior to upcoming appointment and complete an E-visit - See care advice and disposition for Guideline. First positive answer recorded, all responses to prior questions were negative. If symptoms increase, change or if new symptoms develop, call your health care provider or call back. Recommendations were based on caller information and is not a diagnosis. Verified and reviewed all triage information with caller. Reason for Disposition Fever present > 3 days (72 hours) Difficulty breathing (per caller) but not severe Protocols used: Muscle Aches and Body Pain-A-OH, Sore Throat-A-OH standing order available * Telephone Encounter - Niki Elmore - 03/25/2025 1:33 PM CDT Symptoms: Sore Throat, Body Aches, Chills Outcome: Warm transfer to an emergent RN NOW! Reason: Can't swallow saliva (drooling) The caller accepted this outcome. documented in this encounter Plan of Treatment Upcoming Encounters Date Type Department Care Team (Late st Contact Info) Description 04/02/2025 10:30 AM CDT Office Visit [facility] [address] [place] [phone] Sundar Tristan MD #2 [facility] [address] [place] [address] 04/03/2025 10:00 AM CDT Office Visit [facility] Medical [facility] - Gastroenterology - [place] [address] [place] [address] Feliberto Winston MD 2 [facility] [address] [place] [address] 04/03/2025 11:00 AM CDT Office Visit [facility] - Neurology - [place] [address] [place] [address] Maryann El APRN, COT ASSEMBLER [address] [place] [address] 04/22/2025 10:30 AM CDT [facility] Visit [facility] [place] [address] [place] [address] Kristi Theodora Van, RESULTS ENGINEER, WOOD VENEER TAPER [address] [address] documented as of this encounter Visit Diagnoses Not on filedocumented in this encounter Additional Health Concerns Assessment Noted Time PHQ-9 Depression Total Score: 15 025 10:40 AM CDT documented as of this encounter Care Teams Fast Brim Pouncer Relationship Specialty Start Date End Date Kristi Theodora Van, RESULTS ENGINEER, WOOD VENEER TAPER [address] [address] PCP - General Advanced Practice Nurse 01/21/25 Mac Sher MD [address] [place] [address] Consulting Physician Neurology 09/15/15 Robert Mae MD [address] [place] [address] Consulting Physician Pulmonary Disease 10/27/22 Maryann El APRN, COT ASSEMBLER [address] [place] [address] Nurse Practitioner Advanced Practice Nurse 12/21/22 Germania Navarro APRN, WOOD VENEER TAPER [address] [place] [address] Nurse Practitioner Advanced Practice Nurse 10/04/23 Leny Morales MD [address] [place] [address] Consulting Physician Gastroenterology 01/19/23 documented as of this encounter
--- OUTSIDE RECORDS SUMMARY | 2025-03-26 09:12 | XMS_ITS | Encounter Summary ---
Author Organization [facility] Address [address] [place] [address] Phone Care Team Providers Care Ticket Machine Operator Name Role Phone Mac Sher MD Unavailable Robert Mae MD Unavailable Maryann El HELICOPTER PILOT INSTRUCTOR, AIR CREW OFFICER Unavailable [phone] Germania Navarro HELICOPTER PILOT INSTRUCTOR, GREENSKEEPER LABORER Unavailable Leny Morales MD Unavailable [phone] Theodora Berry HELICOPTER PILOT INSTRUCTOR, GREENSKEEPER LABORER Primary Care Provider Encounter Details Date Type Department Care Team (Late st Contact Info) Description 03/25/2025 2:45 PM CDT Telemedicine [facility] - [facility] [address] [place] [address] Teena Chopra, HELICOPTER PILOT INSTRUCTOR, GREENSKEEPER LABORER [address] [place] [address] Viral URI (Primary Dx) Social History Tobacco Use Types Packs/Day Years Used Date Smoking Tobacco: Former Cigarettes 0.5 25 Smokeless Tobacco: Never Comments:occassional Alcohol Use Standard Drinks/Week Comments Not Currently 0 (1 standard drink = 0.6 oz pur e alcohol) [facility] Utilities Answer Date Recorded In the [...] often do you attend chur ch or pentecostalism services? Never 01/19/2025 Do you belong to any clubs o r organizations such as shinto groups, unions, fraternal or athletic groups, or [...] Total Score - Questions 1-9 15 10/2024 [facility] of Occupat ional Health - Occupational [...] any time in the past 12 m [facility], were you homeless or living in a chcf (including now)? No 01/19/2025 Sexually Active Control [...] Description 04/02/2025 10:30 AM CDT Office Visit [facility] [address] [place] [address] Sundar Tristan MD [address] [address] 04/03/2025 10:00 AM CDT Office Visit [facility] - Gastroenterology - [place] [address] [place] [address] Feliberto Winston MD 2 [facility] [address] [place] [address] 04/03/2025 11:00 AM CDT [facility] - Neurology - [place] [address]2 [facility] [place] [address] Maryann El, HELICOPTER PILOT INSTRUCTOR, AIR CREW OFFICER #2 [place] [address] 04/22/2025 10:30 AM CDT Office [facility] - Family Medicine - [place] [address]2 [place] [address] Kristi Theodora Van, HELICOPTER PILOT INSTRUCTOR, GREENSKEEPER LABORER 2 [facility] [address] [place] [address] documented as of this encounter Visit Diagnoses Diagnosis Viral URI- Primary Acute upper respiratory infections of unspecified site documented in this encounter Additional Health Concerns Assessment Noted Time PHQ-9 Depression Total Score: 15 025 10:40 AM CDT documented as of this encounter Care Teams Ticket Machine Operator Relationship Specialty Start Date End Date Kristi Theodora Van, HELICOPTER PILOT INSTRUCTOR, GREENSKEEPER LABORER 2 [facility] [address] [place] [address] PCP - General Advanced Practice Nurse 01/21/25 Mac Sher MD [address]2 [place] [address] Consulting Physician Neurology 09/15/15 Robert Mae MD [address] [place] [address] Consulting Physician Pulmonary Disease 10/27/22 Maryann El APRN, AIR CREW OFFICER [address] [place] [address] Nurse Practitioner Advanced Practice Nurse 12/21/22 Germania Navarro APRN, GREENSKEEPER LABORER [address] [place] [address] Nurse Practitioner Advanced Practice Nurse 10/04/23 Leny Morales MD [address] [place] [address] Consulting Physician Gastroenterology 01/19/23 documented as of this encounter
--- OUTSIDE RECORDS SUMMARY | 2025-03-26 09:12 | XMS_ITS | Encounter Summary ---
Author Organization [facility] Address [address] [place] [address] Phone Care Team Providers Care Pipe Line Inspector Name Role Phone Mac Sher MD Unavailable [phone] Robert Mae MD Unavailable Maryann El APRN, [facility] Unavailable [phone] Germania Navarro APRN, STRAP MAKER Unavailable Leny Morales MD Unavailable [phone] Theodora Berry APRN, STRAP MAKER Primary Care Provider [phone] Reason for Visit * Reason Onset Date Comments Referral 03/18/2025 Encounter Details Date Type Department Care Team (Late st Contact Info) Description 03/18/2025 Telephone [facility] [address] [place] [address] Theodora Berry, CESAR, STRAP MAKER 2 [facility] [address] [place] [address] Referral Social History Tobacco Use Types Packs/Day Years Used Date Smoking Tobacco: Former Cigarettes 0.5 25 Smokeless Tobacco: Never Comments:occassional Alcohol Use Standard Drinks/Week Comments Not Currently 0 (1 standard drink = 0.6 oz pur e alcohol) [facility] Utilities Answer Date Recorded In the [...] often do you attend chur ch or orthodox services? Never 01/19/2025 Do you belong to [...] Recorded Total Score - Questions 1-9 15 0 10/2024 [facility] [place] of Occupat ional Health - Occupational Stress [...] any time in the past 12 m [facility], were you homeless or living in a assisted (including now)? No 01/19/2025 Sexually Active Control Partners Comments Not Currently Comments No Sex and Gender Information Value Date Recorded Sex Assigned at Female 06/05/2023 10:27 AM CDT Legal Sex Female 10:21 PM CDT Gender Identity Female 06/05/2023 10:27 AM CDT Sexual Orientation Not on file documented as of this encounter Miscellaneous Notes * Telephone Encounter - Robyn Fritz RN - 03/18/2025 8:57 AM CDT SITUATION: Referral BACKGROUND: Patient is contacting PCP Office. Referral requested for Dr. Becerra with [facility] in order to schedule evaluation for shoulder and back pain. Patient reports her current Orthopedic Surgeon is no longer accepting her insurance and a new referral is needed. Patient is unsure of the providers first name but knows location is [place], [place]. and . ASSESSMENT: Triage offered, patient declined. RECOMMENDATION: Upon discussion, stock hanger unable to locate/pend referral for a Dr. Becerra with [facility] in [place], [place]. Patient advised and will clarify where referral needs to be sent and then notify the office. Encouraged patient to call back and she verbalized understanding. Routing to Nurse Pool to ensure follow-up. documented in this encounter Plan of Treatment Upcoming Encounters Date Type Department Care Team (Late st Contact Info) Description 04/02/2025 10:30 AM CDT Office Visit [facility] #[address] [place] [address] Sundar Tristan MD #2 [facility] [address] [place] [address] 04/03/2025 10:00 AM CDT Office Visit [facility] - Gastroenterology - [place] [address] [place] [address] Feliberto Winston MD 2 [facility] [address] [place] [address] 04/03/2025 11:00 AM CDT Office Visit [facility] - Neurology - [place] #2 [facility] [place] [phone] Maryann El APRN, [facility] [address] [place] [address] 04/22/2025 10:30 AM CDT Office Visit [facility] - Family Medicine - [place] [address]2 [place] [address] Theodora Berry APRN, STRAP MAKER 2 [facility]. [address] [place] [address] documented as of this encounter Visit Diagnoses Not on filedocumented in this encounter Additional Health Concerns Assessment Noted Time PHQ-9 Depression Total Score: 15 025 10:40 AM CDT documented as of this encounter Care Teams Pipe Line Inspector Relationship Specialty Start Date End Date Kristi January Van, CESAR, STRAP MAKER [address] [address] PCP - General Advanced Practice Nurse 01/21/25 Mac Sher MD [address] [place] [address] Consulting Physician Neurology 09/15/15 Robert Mae MD [address] [place] [address] Consulting Physician Pulmonary Disease 10/27/22 Maryann El APRN, [facility] [employer] [address] [place] [address] Nurse Practitioner Advanced Practice Nurse 12/21/22 Germania Navarro APRN, STRAP MAKER [address] [place] [address] Nurse Practitioner Advanced Practice Nurse 10/04/23 Leny Morales MD #[address] [place] [address] Consulting Physician Gastroenterology 01/19/23 documented as of this encounter
--- OUTSIDE RECORDS SUMMARY | 2025-03-26 09:12 | XMS_ITS | Encounter Summary ---
Author Organization [facility] Address [address] [place] [address] Phone Care Team Providers Care Pick Pack Worker Name Role Phone Mac Sher MD Unavailable [phone] Robert Mae MD Unavailable Maryann El APRN, [facility] Unavailable + [phone] Germania Navarro APRN, BIOLOGICS SPECIALIST Unavailable Leny Morales MD Unavailable [phone] Theodora Berry APRN, BIOLOGICS SPECIALIST Primary Care Provider [phone] Reason for Referral * Consult, Test & Initiate Treatment (Routine) - Open Specialty Diagnoses / Procedures Referred By Jo Ann t Referred To Contact Diagnoses Right shoulder pain, unspecified chronicity Procedures OFFICE/OP NEW LVL 3 LOW MDM/30-44 MIN OFFICE/OP EST LVL 3 LOW MDM/20-29 MIN Theodora Berry, CESAR, BIOLOGICS SPECIALIST 2 [facility] [address] [place] [address] Phone: tel: fax: Referral ID Status Reason Start Date Expiration Date Visits Re quested Visits Authorized [id number] Open 03/25/2025 1 1 Scheduling Instructions Christy is being referred for right shoulder pain. Please contact patient for scheduling questions or concerns. Reason for Visit * Reason Onset Date Comments Referral 03/25/2025 Encounter Details Date Type Department Care Team (Late st Contact Info) Description 03/25/2025 Telephone [facility] [address] [place] [address] Theodora Berry APRN, CNP 2 [facility] [address] [place] [address] Referral Social History Tobacco Use Types Packs/Day Years Used Date Smoking Tobacco: Former Cigarettes 0.5 25 Smokeless Tobacco: Never Comments:occassional Alcohol Use Standard Drinks/Week Comments Not Currently 0 (1 standard drink = 0.6 oz pur e alcohol) [facility] Utilities Answer Date Recorded In the past 12 months has [employer], gas, oil, or water [employer] threatened to shut off services in your [...] 01/19/2025 How often do you attend chur or adventist services? Never 01/19/2025 Do you belong to any clubs o r organizations such as amish groups, unions, fraternal or athletic groups, or [...] you are drinking? Patient does not drink 03/30/202 5 Q3: How often do you have si x or more drinks on one occasion? Never 01/19/2025 Overall Financial Resource Strain (CARDIA) Answe r Date Recorded How hard is it for you to pa y for the very basics like food, housing, medical care, and heating? Hard 01/19/2025 PHQ-2 Answer Date Recorded Total Score - Questions 1-9 15 04/0 10/2024 [facility] - Occupational Stress Questionnaire Answer Date Recorded [...] any time in the past 12 m [facility], were you homeless or living in a [place] health care facility (including now)? No 01/19/2025 Sexually Active Control Partners Comments Not Currently Comments No Sex and Gender Information Value Date Recorded Sex Assigned at Female 06/05/2023 10:27 AM CDT Legal Sex Female 10:21 PM CDT Gender Identity Female 06/05/2023 10:27 AM CDT Sexual Orientation Not on file documented as of this encounter Miscellaneous Notes * Telephone Encounter - Rebeka Normna RN - 03/25/2025 1:56 PM CDT Situation: Patient is requesting a referral to (speciality) Orthopedic Surgeon Background: Referral requested for right shoulder pain Action: Name and location of patient's preferred specialty provider: Dr Naidu at [facility] Patient been seen by this speciality in the past? Yes- previous provider left and patient was told her right shoulder has a rotator cuff tear Order pended for review. Recommendation: Referral request routed to provider for review. Caller has been given the referral center information (M-F 8am-4:30pm [phone] option 7) to call to check status of referral once the order has been signed. documented in this encounter Plan of Treatment Upcoming Encounters Date Type Department Care Team (Late st Contact Info) Description 04/02/2025 10:30 AM CDT Office Visit [facility] #[address] [place] [address] Sundar Tristan MD #2 [facility] [address] [place] [address] 04/03/2025 10:00 AM CDT Office Visit [facility] Medical [facility] - Gastroenterology - [place] [address] [place] [address] Feliberto Winston MD 2 [facility] [address] [place] [address] 04/03/2025 11:00 AM CDT Office Visit [facility] Medical [facility] - Neurology - [place] [address] [place] [address] Maryann El, [employer] MAINFRAME SYSTEMS PROGRAMMER, HEALTH PHYSICIST #[address] [place] [address] 04/22/2025 10:30 AM CDT Office Visit [facility] Medical Group [facility] [place] #[address] [place] [address] Kristi January N, [employer] MAINFRAME SYSTEMS PROGRAMMER, BIOLOGICS SPECIALIST 2 [facility] [place] [address] Scheduled Referrals Name Type Priority Associated Diagnoses Orde r Schedule ORTHOPEDIC SURGERY REFERRAL Outpatient Referral Routine Right shoulder pain, unspecified chronicity Expected: 03/25/2025, Expires: 03/25/2026 documented as of this encounter Visit Diagnoses Diagnosis Right shoulder pain, unspecified chronicity- Primary documented in this encounter Additional Health Concerns Assessment Noted Time PHQ-9 Depression Total Score: 15 025 10:40 AM CDT documented as of this encounter Care Teams Pick Pack Worker Relationship Specialty Start Date End Date Kristi January Van, [employer] MAINFRAME SYSTEMS PROGRAMMER, BIOLOGICS SPECIALIST 2 [facility] [place] [address] PCP - General Advanced Practice Nurse 01/21/25 Mac Sher MD #[address] [place] [address] Consulting Physician Neurology 09/15/15 Robert Mae MD #[address] [place] [address] Consulting Physician Pulmonary Disease 10/27/22 Maryann El APRN, HEALTH PHYSICIST #[address] [place] [address] Nurse Practitioner Advanced Practice Nurse 12/21/22 Germania Navarro APRN, [facility] [address] [place] [address] Nurse Practitioner Advanced Practice Nurse 10/04/23 Leny Morales MD #[address] [place] [address] Consulting Physician Gastroenterology 01/19/23 documented as of this encounter
--- OUTSIDE RECORDS SUMMARY | 2025-03-26 09:12 | XMS_ITS | Encounter Summary ---
Author Organization [facility] Address [address] [place] [address] Phone Care Team Providers Care Financial Sales Manager Name Role Phone Mac Sher MD Unavailable [phone] Micky Dickson MD Primary Care Provider [phone] Robert Mae MD Unavailable Maryann El APRN, PROPOSAL ANALYST Unavailable + [phone] Germania Navarro APRN, DEVELOPMENTAL SPECIALIST Unavailable Leny Morales MD Unavailable [phone] Silva Vicente MD Primary Care Provider [phone] Manisha Galeas MD Primary Care Provider [phone] Theodora Berry PEGGER, DEVELOPMENTAL SPECIALIST Primary Care Provider Reason for Visit * Reason Comments Medication Refill Encounter Details Date Type Department Care Team (Late st Contact Info) Description 2024 Refill [facility] - [place] [address] [place] [address] Germania Navarro APRN, DEVELOPMENTAL SPECIALIST #[address] [place] [address] Medication Refill Social History Tobacco Use Types [...] Visit [facility] #[address] [place] [address] Sundar Tristan MD #[address] [facility] [address] [place] [address] 04/03/2025 10:00 AM CDT Office Visit [facility] Medical Group - Gastroenterology - [place] #[address] [place] [address] Feliberto Winston MD 2 [facility] [address] [place] [address] 04/03/2025 11:00 AM CDT Office Visit [facility] - Neurology - [place] #[address] [place] [address] Maryann El APRN, PROPOSAL ANALYST #[address] [place] [address] 04/22/2025 10:30 AM CDT Office Visit [facility] - Family [facility] - [place] #[address] [place] [address] Theodora Berry APRN, DEVELOPMENTAL SPECIALIST 2 [facility] [place] [facility] [address] [place] [address] documented as of this encounter Visit Diagnoses Not on filedocumented in this encounter Additional Health Concerns Infection Onset Date Last Indicated Resolved Time COVID - 19 09/03/2024 09/03/2024 09/03/2024 9:25 PM PROCESSING TECHNOLOGIST documented as of this encounter Care Teams Financial Sales Manager Relationship Specialty Start Date End Date Micky Dickson MD [address] [place] [address] DR CASTRO [address] [place] [address] PCP - General Family Medicine 09/25/23 07/04/24 Silva Vicente MD [address] [place] [address] DR CASTRO [address] [place] [address], [place] [address] PCP - General Family Medicine 07/05/24 12/29/24 Manisha Galeas MD [address] [place] [address] [address] CASTRO [address] [place] [address], [place] [address] PCP - General Family Medicine 12/30/24 01/20/25 Theodora Berry, CESAR, DEVELOPMENTAL SPECIALIST [address] [address] PCP - General Advanced Practice Nurse 01/21/25 Mac Sher MD #2 [place] [address] Consulting Physician Neurology 09/15/15 Robert Mae MD #2 [place] [address] Consulting Physician Pulmonary Disease 10/27/22 Maryann El APRN, PROPOSAL ANALYST #[address] [place] [address] Nurse Practitioner Advanced Practice Nurse 12/21/22 Germania Navarro APRN, DEVELOPMENTAL SPECIALIST #[address] [place] [address] Nurse Practitioner Advanced Practice Nurse 10/04/23 Leny Morales MD #[address] [place] [address] Consulting Physician Gastroenterology 01/19/23 documented as of this encounter
--- OUTSIDE RECORDS SUMMARY | 2025-03-26 09:12 | XMS_ITS | Encounter Summary ---
Author Organization [facility] Address [address] [place] [address] Phone Care Team Providers Care Aquatic Biologist Name Role Phone Mac Sher MD Unavailable [phone] Micky Dickson MD Primary Care Provider [phone] Robert Mae MD Unavailable Maryann El APRN, [facility] Unavailable + [phone] Germania Navarro APRN, HOME AIDE Unavailable Leny Morales MD Unavailable [phone] Silva Vicente MD Primary Care Provider [phone] Manisha Galeas MD Primary Care Provider [phone] Theodora Berry DISTRICT WIRE CHIEF, HOME AIDE Primary Care Provider [phone] Reason for Visit * Reason Comments Medication Refill Encounter Details Date Type Department Care Team (Late Contact Info) Description 03/20/2024 Refill [facility] - [place] #[address] [place] [address] Leny Morales MD #[address] [place] [address] Medication Refill Social History Tobacco Use Types [...] AM CDT Medication refilled and signed per [facility] chronic medication standing order for pediatric and adult patients. documented in this encounter Plan of Treatment Upcoming Encounters Date Type Department Care Team (Late st Contact Info) Description 04/02/2025 10:30 AM CDT Office Visit [facility] #[address] [place] [address] Sundar Tristan MD #2 [facility] [address] [place] [address] 04/03/2025 10:00 AM CDT Office Visit [facility] Medical [facility] - Gastroenterology [facility] #[address] [place] [address] Feliberto Winston MD 2 [facility] [address] [place] [address] 04/03/2025 11:00 AM CDT Office Visit [facility] Medical [facility] - Neurology - [place] #[address] [place] [address] Maryann El APRN, SAILING OFFICER #[address] [place] [address] 04/22/2025 10:30 AM CDT Office Visit [facility] Family [facility] - [place] #[address] [place] [address] Theodora Berry, CESAR, HOME AIDE 2 [facility] [place] [facility] [address] [place] [address] documented as of this encounter Visit Diagnoses Not on filedocumented in this encounter Additional Health Concerns Infection Onset Date Last Indicated Resolved Time COVID - 19 09/03/2024 09/03/2024 09/03/2024 9:25 PM SALES UTILITY REPRESENTATIVE documented as of this encounter Care Teams Aquatic Biologist Relationship Specialty Start Date End Date Micky Dickson MD [address] [place] [address] DR CASTRO [address] [place] [address] PCP - General Family Medicine 09/25/23 07/04/24 Silva Vicente MD [address] [place] [address] [place] [address] PCP - General Family Medicine 07/05/24 12/29/24 Manisha Galeas MD [address] [place] [address] [address] CASTRO [address] [place] [address] PCP - General Family Medicine 12/30/24 01/20/25 Theodora Berry, CESAR, HOME AIDE [address] [facility] [place] [address] PCP - General Advanced Practice Nurse 01/21/25 Mac Sher MD #[address] [place] [address] Consulting Physician Neurology 09/15/15 Robert Mae MD #[address] [place] [address] Consulting Physician Pulmonary Disease 10/27/22 Maryann El APRN, SAILING OFFICER #[address] [place] [address] Nurse Practitioner Advanced Practice Nurse 12/21/22 Germania Navarro APRN, HOME AIDE #[address] [place] [address] Nurse Practitioner Advanced Practice Nurse 10/04/23 Leny Morales MD #[address] [place] [address] Consulting Physician Gastroenterology 01/19/23 documented as of this encounter
--- OUTSIDE RECORDS SUMMARY | 2025-03-26 09:12 | XMS_ITS | Encounter Summary ---
Author Organization [facility] Care Team Providers Care Punch Hand Name Role Phone Mac Sher MD Unavailable [phone] Robert Mae MD Unavailable Maryann El APRN, [facility] Unavailable + [phone] Germania Navarro APRN, ADOPTION SPECIALIST Unavailable Leny Morales MD Unavailable [phone] Theodora Berry CREMATORY ATTENDANT, ADOPTION SPECIALIST Primary Care Provider [phone] Encounter Details Date Type Department Care Team (Latest Contact Info) Description 03/25/2025 Travel Social History Tobacco Use Types Packs/Day Years Used Date Smoking Tobacco: Former Cigarettes 0.5 25 Smokeless Tobacco: Never Comments:occassional Alcohol Use Standard Drinks/Week Comments Not Currently 0 (1 standard drink = 0.6 oz pur e alcohol) [facility] Utilities Answer Date Recorded In the past 12 months has [employer], gas, oil, or water company threatened [...] often do you attend chur ch or congregational services? Never 01/19/2025 Do you belong to [...] Total Score - Questions 1-9 15 10/2024 [facility] - Occupational Stress Questionnaire Answer Date [...] any time in the past 12 m [facility], were you homeless or living in a long term (including now)? No 01/19/2025 Sexually Active Control [...] Description 04/02/2025 10:30 AM CDT Office Visit [facility]Y #[address] [place] [address] Sundar Tristan MD #2 [facility] [address] [place] [address] 04/03/2025 10:00 AM CDT Office Visit [facility] Medical Group - Gastroenterology - [place] #[address] [place] [address] Feliberto Winston MD 2 [facility] [address] [place] [address] 04/03/2025 11:00 AM CDT [facility] - [place] #2 [facility] [place] [address] Maryann El APRN, HEALTH EDUCATION AIDE #2 [place] [address] 04/22/2025 10:30 AM CDT Office Visit [facility] #2 [place] [address] Kristi Theodora Van, CREMATORY ATTENDANT, ADOPTION SPECIALIST 2 [facility] [address] [place] [address] documented as of this encounter Visit Diagnoses Not on filedocumented in this encounter Additional Health Concerns Assessment Noted Time PHQ-9 Depression Total Score: 15 025 10:40 AM CDT documented as of this encounter Care Teams Punch Hand Relationship Specialty Start Date End Date Kristi Theodora Van, CESAR, ADOPTION SPECIALIST [address] [address] PCP - General Advanced Practice Nurse 01/21/25 Mac Sher MD #2 [place] [address] Consulting Physician Neurology 09/15/15 Robert Mae MD #2 [place] [address] Consulting Physician Pulmonary Disease 10/27/22 Maryann El APRN, HEALTH EDUCATION AIDE #[address] [place] [address] Nurse Practitioner Advanced Practice Nurse 12/21/22 Germania Navarro APRN, ADOPTION SPECIALIST #[address] [place] [address] Nurse Practitioner Advanced Practice Nurse 10/04/23 Leny Morales MD #2 [place] [address] Consulting Physician Gastroenterology 01/19/23 documented as of this encounter
--- OUTSIDE RECORDS SUMMARY | 2025-03-26 09:12 | XMS_ITS | Encounter Summary ---
Author Organization [facility] Address [address] [place] [address] Phone Care Team Providers Care Nailing Machine Operator Name Role Phone Mac Sher MD Unavailable [phone] Micky Dickson MD Primary Care Provider [phone] Robert Mae MD Unavailable Maryann El APRN, ALTITUDE CHAMBER TECHNICIAN Unavailable + [phone] Germania Navarro APRN, FRUIT I FARMWORKER Unavailable Leny Morales MD Unavailable [phone] Silva Vicente MD Primary Care Provider [phone] Manisha Galeas MD Primary Care Provider [phone] Theodora Berry SUPPLY ANALYST, FRUIT I FARMWORKER Primary Care Provider Reason for Visit * Reason Comments Medication Refill Encounter Details Date Type Department Care Team (Late st Contact Info) Description 03/10/2024 Refill [facility] - [place] #2 [place] [address] Germania Navarro APRN, FRUIT I FARMWORKER #[address] [place] [address] Medication Refill Social History Tobacco Use Types [...] AM CDT Medication refilled and signed [facility] chronic medication standing order for pediatric and adult patients. documented in this encounter Plan of Treatment Upcoming Encounters Date Type Department Care Team (Late st Contact Info) Description 04/02/2025 10:30 AM CDT Office Visit [facility] #[address] [place] [address] Sundar Tristan MD #2 [facility] [address] [place] [address] 04/03/2025 10:00 AM CDT Office Visit [facility] Medical Group - Gastroenterology - [place] #[address] [place] [address] Feliberto Winston MD 2 [facility] [address] [place] [address] 04/03/2025 11:00 AM CDT Office Visit [facility] Group - Neurology - [place] #[address] [place] [address] Maryann El APRN, ALTITUDE CHAMBER TECHNICIAN #[address] [place] [address] 04/22/2025 10:30 AM CDT Office Visit [facility] - [facility] - [place] #[address] [place] [address] Theodora Berry APRN, FRUIT I FARMWORKER 2 [facility] [place] [facility] [address] [place] [address] documented as of this encounter Visit Diagnoses Not on filedocumented in this encounter Additional Health Concerns Infection Onset Date Last Indicated Resolved Time COVID - 19 09/03/2024 09/03/2024 09/03/2024 9:25 PM COPPER PLATE 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 documented as of this encounter Care Teams Nailing Machine Operator Relationship Specialty Start Date End Date Micky Dickson MD [address] [place] [address] DR CASTRO [address] [place] [address] PCP - General Family Medicine 09/25/23 07/04/24 Silva Vicente MD [address] [place] [address] [address] CASTRO [address] [place], [place] [address], [place] [address] PCP - General Family Medicine 07/05/24 12/29/24 Manisha Galeas MD [address] [place] [address] [address] CASTRO [address] [place], [place] [address], [place] [address] PCP - General Family Medicine 12/30/24 01/20/25 Theodora Berry, CESAR, FRUIT I FARMWORKER [address] [address] PCP - General Advanced Practice Nurse 01/21/25 Mac Sher MD #2 [place] [address] Consulting Physician Neurology 09/15/15 Robert Mae MD #2 [place] [address] Consulting Physician Pulmonary Disease 10/27/22 Maryann El APRN, ALTITUDE CHAMBER TECHNICIAN #[address] [place] [address] Nurse Practitioner Advanced Practice Nurse 12/21/22 Germania Navarro APRN, FRUIT I FARMWORKER #[address] [place] [address] Nurse Practitioner Advanced Practice Nurse 10/04/23 Leny Morales MD #2 [place] [address] Consulting Physician Gastroenterology 01/19/23 documented as of this encounter
--- OUTSIDE RECORDS SUMMARY | 2025-03-26 09:12 | XMS_ITS | Encounter Summary ---
Author Organization [facility] Address [address] [place] [address] Phone Care Team Providers Care Database Report Writer Name Role Phone Mac Sher MD Unavailable [phone] Micky Dickson MD Primary Care Provider [phone] Robert Mae MD Unavailable Maryann El APRN, BORING MACHINE OPERATOR PRODUCTION Unavailable + [phone] Germania Navarro APRN, MAT PUNCHER Unavailable Leny Morales MD Unavailable [phone] Silva Vicente MD Primary Care Provider [phone] Manisha Galeas MD Primary Care Provider [phone] Theodora Berry CARE TECH, MAT PUNCHER Primary Care Provider Reason for Visit * Reason Comments Medication Refill Encounter Details Date Type Department Care Team (Late st Contact Info) Description 03/22/2024 Refill [facility] - [place] #2 [place] [phone] Germania Navarro APRN, MAT PUNCHER #2 [place] [address] Medication Refill Social History Tobacco Use Types [...] AM CDT Medication refilled and signed per [facility] chronic medication standing order for pediatric and adult patients. documented in this encounter Plan of Treatment Upcoming Encounters Date Type Department Care Team (Late st Contact Info) Description 04/02/2025 10:30 AM CDT Office Visit [facility] #2 [place] [address] Sundar Tristan MD #2 [facility] [address] [place] [address] 04/03/2025 10:00 AM CDT Office Visit [facility] - Gastroenterology - [place] #2 [place] [address] Feliberto Winston MD 2 [facility] [address] [place] [address] 04/03/2025 11:00 AM CDT Office Visit [facility] - Neurology - [place] #2 [place] [address] Maryann El APRN, BORING MACHINE OPERATOR PRODUCTION #2 [place] [address] 04/22/2025 10:30 AM CDT Office Visit [facility] - Family [facility] [place] #[address] [place] [address] Theodora Berry APRN, MAT PUNCHER 2 [facility] [address] [facility] [address] [place] [address] documented as of this encounter Visit Diagnoses Not on filedocumented in this encounter Additional Health Concerns Infection Onset Date Last Indicated Resolved Time COVID - 19 09/03/2024 09/03/2024 09/03/2024 9:25 PM SECURITY INCIDENT HANDLER documented as of this encounter Care Teams Database Report Writer Relationship Specialty Start Date End Date Micky Dickson MD [address] [place] [address] DR CASTRO [address] [place] [address] PCP - General Family Medicine 09/25/23 07/04/24 Silva Vicente MD [address] [place] [address] DR CASTRO [address] [place] [address], [place] [address] PCP - General Family Medicine 07/05/24 12/29/24 Manisha Galeas MD [address] [place] [address] [address] CASTRO [address] [place] [address], [place] [address] PCP - General Family Medicine 12/30/24 01/20/25 Theodora Berry, CESAR, MAT PUNCHER [address] [address] PCP - General Advanced Practice Nurse 01/21/25 Mac Sher MD #2 [place] [address] Consulting Physician Neurology 09/15/15 Robert Mae MD #2 [place] [address] Consulting Physician Pulmonary Disease 10/27/22 Maryann El APRN, BORING MACHINE OPERATOR PRODUCTION #2 [place] [address] Nurse Practitioner Advanced Practice Nurse 12/21/22 Germania Navarro APRN, MAT PUNCHER #2 [place] [address] Nurse Practitioner Advanced Practice Nurse 10/04/23 Leny Morales MD #2 [place] [address] Consulting Physician Gastroenterology 01/19/23 documented as of this encounter
--- NOTE | 2025-03-26 09:13 | ED.URI ---
HPI - URI/Sore Throat General Chief Complaint: Upper Respiratory Infection Stated Complaint: sorethroat,headache,joint pain Time Seen by Provider: 03/26/25 09:12 Source: patient Mode of arrival: ambulatory Limitations: no limitations History of Present Illness HPI Narrative: Patient is a 69 year old female who presents to the clinic for complaints of sore throat, headache, fevers, and body aches x 4 days. She has been taking Tylenol over the counter, but has had minimal relief. She states she was seen through telehealth last night and was told it is probably viral. Denies any shortness of breath, difficulty swallowing, nausea, or diarrhea. Related Data Home Medications ?Medication ?Instructions ?Recorded ?Confirmed ?Last Taken ?Type citalopram 40 mg tablet 40 mg PO DAILY 12/25/20 08/25/24 Unknown History linaclotide 145 mcg capsule 145 mcg PO DAILY 12/25/20 08/25/24 Unknown History (Linzess) propranolol 20 mg tablet 20 mg PO DAILY 12/25/20 08/25/24 Unknown History topiramate 50 mg tablet 50 mg PO DAILY 12/25/20 08/25/24 Unknown History citalopram 10 mg tablet 10 mg PO DAILY 02/21/21 08/02/22 Unknown History citalopram 40 mg tablet 40 mg PO DAILY 02/21/21 08/02/22 Unknown History linaclotide 145 mcg capsule 145 mcg PO QAM 02/21/21 08/02/22 Unknown History (Linzess) topiramate 50 mg tablet 50 mg PO BID 02/21/21 08/02/22 Unknown History albuterol sulfate 90 mcg/actuation 2 puff inhalation Q4-6H PRN 08/02/22 08/02/22 Unknown History aerosol inhaler (Ventolin HFA) Shortness Of Breath Or Wheezing benztropine 1 mg tablet 1 mg PO DAILY 08/02/22 08/02/22 Unknown History buspirone 30 mg tablet 15 mg PO Q6H 08/02/22 08/02/22 Unknown History celecoxib 200 mg capsule 200 mg PO DAILY 08/02/22 08/02/22 Unknown History donepezil 10 mg tablet 10 mg PO QHS 08/02/22 08/02/22 Unknown History esomeprazole magnesium 20 mg 20 mg PO DAILY 08/02/22 08/02/22 Unknown History capsule,delayed release hydroxyzine HCl 25 mg tablet 25 mg PO DAILY 08/02/22 08/02/22 Unknown History primidone 50 mg tablet 200 mg PO QHS 08/02/22 08/02/22 Unknown History risperidone 1 mg tablet 1 mg PO QHS 08/02/22 08/02/22 Unknown History trazodone 150 mg tablet 150 mg PO DAILY 08/02/22 08/02/22 Unknown History hydroxyzine HCl 50 mg tablet 50 mg PO HS 07/09/23 08/25/24 Unknown History Symbicort 02/16/24 Unknown History atogepant 60 mg tablet (Qulipta) mg 02/16/24 Unknown History dicyclomine 20 mg tablet mg 02/16/24 Unknown History methocarbamol 500 mg tablet mg 02/16/24 02/16/24 Unknown History oxycodone-acetaminophen 5 mg-325 tablet 02/16/24 Unknown History mg tablet albuterol sulfate 90 mcg/actuation See Rx Instructions .Route 08/25/24 08/25/24 Unknown History aerosol inhaler .COMPLEX PRN sob atogepant 60 mg tablet (Qulipta) 60 mg PO DAILY 08/25/24 08/25/24 Unknown History bupropion HCl 100 mg tablet 200 mg PO DAILY 08/25/24 08/25/24 Unknown History buspirone 30 mg tablet 30 mg PO DAILY 08/25/24 08/25/24 Unknown History celecoxib 200 mg capsule See Rx Instructions .Route .COMPLEX 08/25/24 08/25/24 Unknown History dicyclomine 20 mg tablet 20 mg PO BID 08/25/24 08/25/24 Unknown History donepezil 10 mg tablet 10 mg PO DAILY 08/25/24 08/25/24 Unknown History pantoprazole 40 mg tablet,delayed 40 mg PO DAILY 08/25/24 08/25/24 Unknown History release primidone 250 mg tablet 250 mg PO HS 08/25/24 08/25/24 Unknown History risperidone 2 mg tablet See Rx Instructions .Route .COMPLEX 08/25/24 08/25/24 Unknown History trazodone 150 mg tablet 150 mg PO DAILY 08/25/24 08/25/24 Unknown History budesonide-formoterol inhalation 12/17/24 Unknown History frmetppiftz-hnkwwhlus-lmfdmyzc inhalation 12/17/24 Unknown History lasmiditan 50 mg tablet (Reyvow) mg PO 12/17/24 Unknown History oxycodone-acetaminophen 5 mg-325 tablet 12/17/24 Unknown History mg tablet hydroxyzine pamoate 50 mg capsule mg 03/26/25 Unknown History lactulose 10 gram/15 mL oral 03/26/25 Unknown History solution (Constulose) Allergies Allergy/AdvReac Type Severity Reaction Status Date / Time iron Allergy Unknown Verified 12/30/24 08:11 Review of Systems Review of Systems: CONSTITUTIONAL: Reports body aches, chills, and fever. Denies sweats. EYES: Denies visual changes, redness, or discharge. ENT: Reports sore throat. Denies rhinorrhea, congestion, or otalgia. CARDIOVASCULAR: Denies chest pain, palpitations, or edema. RESPIRATORY: Denies dyspnea. GASTROINTESTINAL: Denies abdominal pain, nausea, vomiting, or diarrhea. SKIN: Denies rash NEUROLOGIC: Reports headache. All systems reviewed & are unremarkable except as noted in HPI and below PMFSH Past Medical History Medical History Essential tremor Insomnia Kidney stones Migraine IBS (irritable bowel syndrome) PTSD (post-traumatic stress disorder) Depression Anxiety Hypertension Chronic low back pain Tremors of nervous system Depression Anxiety COPD (chronic obstructive pulmonary disease) Surgical History Surgical History H/O Spinal surgery H/O shoulder surgery History of cholecystectomy H/O lumbar discectomy Hx of cholecystectomy H/O shoulder surgery Right torn rotator cuff History of appendectomy Family History Family History Mother Family history of chronic obstructive pulmonary disease Father Family history of lung cancer Mother Family history non-contributory Social History Social History Smoking packs per day: 1 Smoking cigarettes per day: 20.0 Years smoked: 30 Smoking pack-years: 30.00 Smoking status: Former smoker Tobacco type: cigarettes Additional smoking assessment comments: Reports quit 2 month ago Alcohol intake: never Substance use: never Substance use type: opiates Other substance usage details: pain control Living arrangements: with family Gender identity (if verbalized by the patient): Female Spiritual care concerns: No Comments At time of signature, I have reviewed and agree with nursing past medical, surgical, social and family history unless otherwise noted. Please see nursing chart for further information. There is no relevant family history pertinent to the presenting complaint. Exam Narrative: GENERAL: Ill-appearing, ?no acute distress. EYES: ?conjunctivae clear ENT: Mucous membranes moist. TM pearly saenz with normal light reflex bilaterally; no tragal tenderness. Oropharynx erythematous without lesions. Tonsils enlarged 2+ and with mild exudate. No drooling, no hoarseness, no trismus, uvula midline. No tripod positioning, hot potato voice, or soft palate swelling. Nasal congestion noted. NECK: Supple. No lymphadenopathy CHEST: Clear to auscultation, breath sounds equal. ?No respiratory distress, speaks in full sentences. HEART: Regular rate and rhythm. No murmur heard. SKIN: Warm, dry, no rash. NEURO: Alert and oriented x3.? Course Course Level of Care: Express Care Visit Vital Signs Vital signs: Vital Signs Temperature 98 F 03/26/25 09:19 Pulse Rate 90 03/26/25 09:19 Respiratory Rate 16 03/26/25 09:19 Blood Pressure 111/76 03/26/25 09:19 Pulse Oximetry 97 03/26/25 09:19 Oxygen Delivery Room Air 03/26/25 09:19 Temperature 98 F 03/26/25 09:19 Pulse Rate 90 03/26/25 09:19 Respiratory Rate 16 03/26/25 09:19 Blood Pressure 111/76 03/26/25 09:19 Pulse Oximetry 97 03/26/25 09:19 Oxygen Delivery Room Air 03/26/25 09:19 reviewed. MDM - URI/Sore Throat MDM Narrative Medical decision making narrative: Discussed physical exam findings. Strep, Flu, Covid swabs negative. Advised supportive measures and signs/symptoms to go to the ER. Pt is appropriate for outpatient treatment and follow up. Differential Diagnosis Differential diagnosis: Likely upper respiratory infection, viral infection, pharyngitis and other (strep, flu, covid) Lab Data Attestation: I reviewed the patient's lab results. Labs: Lab Results 03/26/25 Range/Units 09:44 POC Influenza A Ag Negative (Negative) POC Influenza B Ag Negative (Negative) POC SARS CoV-2 Ag Negative (Negative) POC Grp A Strep Screen Negative (Negative) Critical Care Time Critical Care Time Critical Care Time: No Discharge Plan Discharge Clinical Impression: Upper respiratory infection Qualifiers: URI type: unspecified URI Qualified Code(s): J06.9 - Acute upper respiratory infection, unspecified Patient Disposition: Home Condition: Stable Instructions: Upper Respiratory Infection (DC) Additional Instructions: Rapid strep swab was negative today. You will be notified in a few days if the culture comes back positive for strep, and appropriate antibiotics will be called in at that time. if symptoms are due to a viral illness, it is not treated with antibiotics. Viral symptoms can be present for up to 10-14 days. Recommendations: Flonase spray and Zyrtec for sinus congestion Cough syrup may cause drowsiness; avoid driving or take it at night time. Tylenol every 8 hours as needed for pain/fever Soft foods, cool liquids, warm tea. Gargle with warm saltwater twice a day. Chloraseptic spray and throat lozenges. Rest and stay hydrated. Follow up with your primary care provider in 1 week. Go to the ER for worsening symptoms or concerns. Patient Language: Barbadian Prescriptions: No Action citalopram 40 mg tablet 40 mg PO DAILY citalopram 10 mg tablet 10 mg PO DAILY topiramate 50 mg tablet 50 mg PO BID Linzess 145 mcg capsule 145 mcg PO QAM donepezil 10 mg tablet 10 mg PO QHS trazodone 150 mg tablet 150 mg PO DAILY buspirone 30 mg tablet 15 mg PO Q6H benztropine 1 mg tablet 1 mg PO DAILY hydroxyzine HCl 25 mg tablet 25 mg PO DAILY risperidone 1 mg tablet 1 mg PO QHS primidone 50 mg tablet 200 mg PO QHS celecoxib 200 mg capsule 200 mg PO DAILY esomeprazole magnesium 20 mg capsule,delayed release(DR/EC) 20 mg PO DAILY albuterol sulfate [Ventolin HFA] 90 mcg/actuation HFA aerosol inhaler 2 puff INHALATION Q4-6H PRN (Reason: Shortness Of Breath Or Wheezing) bupropion HCl 100 mg tablet 200 mg PO DAILY risperidone 2 mg tablet See Rx Instructions .ROUTE .COMPLEX Rx Instructions: as prescribed trazodone 150 mg tablet 150 mg PO DAILY buspirone 30 mg tablet 30 mg PO DAILY primidone 250 mg tablet 250 mg PO HS celecoxib 200 mg capsule See Rx Instructions .ROUTE .COMPLEX Rx Instructions: as prescribed albuterol sulfate 90 mcg/actuation HFA aerosol inhaler See Rx Instructions .ROUTE .COMPLEX PRN (Reason: sob) Rx Instructions: as prescribed Qulipta 60 mg tablet 60 mg PO DAILY dicyclomine 20 mg tablet 20 mg PO BID pantoprazole 40 mg tablet,delayed release (DR/EC) 40 mg PO DAILY donepezil 10 mg tablet 10 mg PO DAILY oxycodone-acetaminophen 5-325 mg tablet Reyvow 50 mg tablet PO budesonide-formoterol [Symbicort] inhalation vaqqxxlkdyd-bjtnoyuxc-pgxjnpjd [Trelegy Ellipta] inhalation citalopram 40 mg tablet 40 mg PO DAILY propranolol 20 mg tablet 20 mg PO DAILY topiramate 50 mg tablet 50 mg PO DAILY Linzess 145 mcg capsule 145 mcg PO DAILY hydroxyzine HCl 50 mg tablet 50 mg PO HS methocarbamol 500 mg tablet oxycodone-acetaminophen 5-325 mg tablet dicyclomine 20 mg tablet Qulipta 60 mg tablet Symbicort hydroxyzine pamoate 50 mg capsule lactulose [Constulose] 10 gram/15 mL solution Follow-up/Referrals: UNKNOWN,DOCTOR [Non-Staff] - Time of Disposition: 10:05
--- OUTSIDE RECORDS SUMMARY | 2025-03-26 09:13 | XMS_ITS | Encounter Summary ---
Author Organization [facility] Address [address] [place] [address] Phone Care Team Providers Care Solar Sales Estimator Name Role Phone Mac Sher MD Unavailable [phone] Micky Dickson MD Primary Care Provider [phone] Robert Mae MD Unavailable Maryann El APRN, STEFFEN HOUSE SUPERVISOR Unavailable + [phone] Germania Navarro APRN, ONCOLOGY SPECIALIST Unavailable Leny Morales MD Unavailable [phone] Silva Vicente MD Primary Care Provider [phone] Manisha Galeas MD Primary Care Provider [phone] Theodora Berry TECHNICAL SYSTEM ANALYST, ONCOLOGY SPECIALIST Primary Care Provider Reason for Visit * Reason Comments Medication Refill Encounter Details Date Type Department Care Team (Late st Contact Info) Description 01/08/2024 Refill [facility] - [place] #2 [place] [address] Germania Navarro APRN, ONCOLOGY SPECIALIST #2 [place] [address] Medication Refill Social History Tobacco Use Types [...] PM CDT Medication refilled and signed [facility] chronic medication standing order for pediatric and adult patients. documented in this encounter Plan of Treatment Upcoming Encounters Date Type Department Care Team (Late st Contact Info) Description 04/02/2025 10:30 AM CDT Office Visit [facility] #2 [place] [address] Sundar Tristan MD #2 [facility] [address] [place] [address] 04/03/2025 10:00 AM CDT Office Visit [facility] - Gastroenterology - [place] #2 [place] [address] Feliberto Winston MD 2 [facility] [address] [place] [address] 04/03/2025 11:00 AM CDT Office Visit [facility] - Neurology - [place] #2 [place] [address] Maryann El APRN, STEFFEN HOUSE SUPERVISOR #2 [place] [address] 04/22/2025 10:30 AM CDT Office Visit [facility] - Family [facility] - [place] #[address] [place] [address] Theodora Berry APRN, ONCOLOGY SPECIALIST 2 [facility] [address] [facility] [address] [place] [address] documented as of this encounter Visit Diagnoses Not on filedocumented in this encounter Additional Health Concerns Infection Onset Date Last Indicated Resolved Time COVID - 19 09/03/2024 09/03/2024 09/03/2024 9:25 PM STRIPE MARKER documented as of this encounter Care Teams Solar Sales Estimator Relationship Specialty Start Date End Date Micky Dickson MD [address] [place] [address] DR CASTRO [address] [place] [address] PCP - General Family Medicine 09/25/23 07/04/24 Silva Vicente MD [address] [place] [address] DR CASTRO [address] [place], [place] [address], [place] [address] PCP - General Family Medicine 07/05/24 12/29/24 Manisha Galeas MD [address] [place] [address] DR CASTRO [address] [place], [place] [address], [place] [address] PCP - General Family Medicine 12/30/24 01/20/25 Theodora Berry, CESAR, ONCOLOGY SPECIALIST [address] [address] PCP - General Advanced Practice Nurse 01/21/25 Mac Sher MD #2 [place] [address] Consulting Physician Neurology 09/15/15 Robert Mae MD #2 [place] [address] Consulting Physician Pulmonary Disease 10/27/22 Maryann El APRN, STEFFEN HOUSE SUPERVISOR #2 [place] [address] Nurse Practitioner Advanced Practice Nurse 12/21/22 Germania Navarro APRN, ONCOLOGY SPECIALIST #2 [place] [address] Nurse Practitioner Advanced Practice Nurse 10/04/23 Leny Morales MD #2 [place] [address] Consulting Physician Gastroenterology 01/19/23 documented as of this encounter
--- OUTSIDE RECORDS SUMMARY | 2025-03-26 09:13 | XMS_ITS | Encounter Summary ---
Author Organization [facility] Address [address] [place] [address] Phone Care Team Providers Care Head Butler Name Role Phone Mac Sher MD Unavailable [phone] Micky Dickson MD Primary Care Provider [phone] Robert Mae MD Unavailable Maryann El APRN, CURATOR OF COLLECTIONS Unavailable + [phone] Germania Navarro APRN, INFORMATION SYSTEMS DIRECTOR Unavailable Leny Morales MD Unavailable [phone] Silva Vicente MD Primary Care Provider [phone] Manisha Galeas MD Primary Care Provider [phone] Theodora Berry FURNITURE ASSEMBLER, INFORMATION SYSTEMS DIRECTOR Primary Care Provider Reason for Visit * Reason Comments Medication Refill Encounter Details Date Type Department Care Team (Late st Contact Info) Description 02/08/2024 Refill [facility] - [facility]ology - [place] #2 [place] [address] Germania Navarro APRN, INFORMATION SYSTEMS DIRECTOR #2 [place] [address] Medication Refill Social History Tobacco Use Types [...] AM CDT Medication [facility]illed and signed [facility] chronic medication standing order for pediatric and adult patients. documented in this encounter Plan of Treatment Upcoming Encounters Date Type Department Care Team (Late st Contact Info) Description 04/02/2025 10:30 AM CDT Office Visit [facility] #2 [place] [address] Sundar Tristan MD #2 [facility] [address] [place] [address] 04/03/2025 10:00 AM CDT Office Visit [facility] - Gastroenterology - [place] #2 [place] [address] Feliberto Winston MD 2 [facility] [address] [place] [address] 04/03/2025 11:00 AM CDT Office Visit [facility] - Neurology - [place] #2 [place] [address] Maryann El APRN, CURATOR OF COLLECTIONS #2 [place] [address] 04/22/2025 10:30 AM CDT Office Visit [facility] - Family [facility] [place] #[address] [place] [address] Theodora Berry APRN, INFORMATION SYSTEMS DIRECTOR 2 [facility] [address] [facility] [address] [place] [address] documented as of this encounter Visit Diagnoses Not on filedocumented in this encounter Additional Health Concerns Infection Onset Date Last Indicated Resolved Time COVID - 19 09/03/2024 09/03/2024 09/03/2024 9:25 PM GENERAL LABOR FORKLIFT OPERATOR documented as of this encounter Care Teams Head Butler Relationship Specialty Start Date End Date Micky Dickson MD [address] [place] [address] DR CASTRO [address] [place] [address] PCP - General Family Medicine 09/25/23 07/04/24 Silva Vicente MD [address] [place] [address] DR CASTRO [address] [place], [place] [address], [place] [address] PCP - General Family Medicine 07/05/24 12/29/24 Manisha Galeas MD [address] [place] [address] DR CASTRO [address] [place], [place] [address], [place] [address] PCP - General Family Medicine 12/30/24 01/20/25 Theodora Berry, CESAR, INFORMATION SYSTEMS DIRECTOR [address] [address] PCP - General Advanced Practice Nurse 01/21/25 Mac Sher MD #2 [place] [address] Consulting Physician Neurology 09/15/15 Robert Mae MD #2 [place] [address] Consulting Physician Pulmonary Disease 10/27/22 Maryann El APRN, CURATOR OF COLLECTIONS #2 [place] [address] Nurse Practitioner Advanced Practice Nurse 12/21/22 Germania Navarro APRN, INFORMATION SYSTEMS DIRECTOR #2 [place] [address] Nurse Practitioner Advanced Practice Nurse 10/04/23 Leny Morales MD #2 [place] [address] Consulting Physician Gastroenterology 01/19/23 documented as of this encounter
--- OUTSIDE RECORDS SUMMARY | 2025-03-26 09:13 | XMS_ITS | Encounter Summary ---
Author Organization [facility] Address [address] [place] [address] Phone Care Team Providers Care Back End Web Developer Name Role Phone Mac Sher MD Unavailable [phone] Micky Dickson MD Primary Care Provider [phone] Robert Mae MD Unavailable Maryann El APRN, BIOANALYST Unavailable + [phone] Germania Navarro APRN, ENROBING MACHINE CORDER Unavailable Leny Morales MD Unavailable [phone] Silva Vicente MD Primary Care Provider [phone] Manisha Galeas MD Primary Care Provider [phone] Theodora Berry CROSS TIE TURNER, ENROBING MACHINE CORDER Primary Care Provider Reason for Visit * Reason Comments Medication Refill Encounter Details Date Type Department Care Team (Late st Contact Info) Description 12/22/2023 Refill [facility] - Gastroenterology - [place] #2 [place] [address] Germania Navarro APRN, ENROBING MACHINE CORDER #2 [place] [address] Medication Refill Social History Tobacco Use Types [...] Monica Marcelo RN - 12/26/2023 10:31 AM FREIGHT BRAKEMAN Medication refilled and signed per [facility] chronic medication standing order for pediatric and adult patients. GHT BRAKEMAN documented in this encounter Plan of Treatment Upcoming Encounters Date Type Department Care Team (Late st Contact Info) Description 04/02/2025 10:30 AM CDT Office Visit [facility] #2 [place] [address] Sundar Tristan MD #2 [facility] [address] [place] [address] 04/03/2025 10:00 AM CDT Office Visit [facility] - Gastroenterology - [place] #2 [place] [address] Feliberto Winston MD 2 [facility] [address] [place] [address] 04/03/2025 11:00 AM CDT Office Visit [facility] - Neurology - [place] #2 [place] [address] Maryann El APRN, BIOANALYST #2 [place] [address] 04/22/2025 10:30 AM CDT Office Visit [facility] - Family [facility] #2 [place] [address] Theodora Berry APRN, ENROBING MACHINE CORDER 2 [facility] [place] [place] [address] [place] [address] documented as of this encounter Visit Diagnoses Not on filedocumented in this encounter Additional Health Concerns Infection Onset Date Last Indicated Resolved Time COVID - 19 09/03/2024 09/03/2024 09/03/2024 9:25 PM FREIGHT BRAKEMAN documented as of this encounter Care Teams Back End Web Developer Relationship Specialty Start Date End Date Micky Dickson MD [address] [place] [address] DR CASTRO [address] [place] [address] PCP - General Family Medicine 09/25/23 07/04/24 Silva Vicente MD [address] [place] [address] [place] [address] PCP - General Family Medicine 07/05/24 12/29/24 Manisha Galeas MD [address] [place] [address] [address] CASTRO [address] [place], [place] [address], [place] [address] PCP - General Family Medicine 12/30/24 01/20/25 Theodora Berry, CESAR, ENROBING MACHINE CORDER [address] [address] PCP - General Advanced Practice Nurse 01/21/25 Mac Sher MD #2 [place] [address] Consulting Physician Neurology 09/15/15 Robert Mae MD #2 [place] [address] Consulting Physician Pulmonary Disease 10/27/22 Maryann El APRN, BIOANALYST #2 [place] [address] Nurse Practitioner Advanced Practice Nurse 12/21/22 Germania Navarro APRN, ENROBING MACHINE CORDER #2 [place] [address] Nurse Practitioner Advanced Practice Nurse 10/04/23 Leny Morales MD #2 [place] [address] Consulting Physician Gastroenterology 01/19/23 documented as of this encounter
--- OUTSIDE RECORDS SUMMARY | 2025-03-26 09:13 | XMS_ITS | Encounter Summary ---
Author Organization [facility] Address [address] [place] [address] Phone Care Team Providers Care Binman Name Role Phone Mac Sher MD Unavailable Winifred Armstrong FRONTEND ENGINEER, CANCER PROGRAM COORDINATOR Primary Care Provider Micky Dickson MD Primary Care Provider [phone] Robert Mae MD Unavailable Maryann El APRN, [facility] Unavailable + [phone] Germania Navarro APRN, CANCER PROGRAM COORDINATOR Unavailable Leny Morales MD Unavailable [phone] Silva Vicente MD Primary Care Provider [phone] Manisha Galeas MD Primary Care Provider [phone] Theodora Berry FRONTEND ENGINEER, CANCER PROGRAM COORDINATOR Primary Care Provider [phone] Reason for Visit * Reason Comments Medication Refill Encounter Details Date Type Department Care Team (Late st Contact Info) Description 06/24/2020 Refill [facility] - [place] #1 [facility] [place] [address] Mac Sher MD #2 [place] [address] Medication Refill Social History Tobacco Use Types [...] Description 04/02/2025 10:30 AM CDT Office Visit [facility] #2 [place] [address] Sundar Tristan MD #2 [facility] [address] [place] [address] 04/03/2025 10:00 AM CDT Office Visit [facility] - Gastroenterology - [place] #2 [place] [address] Feliberto Winston MD 2 [facility] [address] [place] [address] 04/03/2025 11:00 AM CDT Office Visit [facility] - Neurology - [place] #2 [place] [address] Maryann El APRN, DIRECTOR HEALTH #2 [place] [address] 04/22/2025 10:30 AM CDT Office Visit [facility] - Family [facility] [place] #[address] [place] [address] Theodora Berry, FRONTEND ENGINEER, CANCER PROGRAM COORDINATOR 2 [facility] [address] [place] [facility]. [address] [place] [address] documented as of this encounter Visit Diagnoses Not on filedocumented in this encounter Additional Health Concerns Infection Onset Date Last Indicated Resolved Time COVID - 19 06/23/2021 06/23/2021 06/29/2021 9:24 PM CDT COVID - 19 09/03/2024 09/03/2024 09/03/2024 9:25 PM CATTLE DRIVER documented as of this encounter Care Teams Binman Relationship Specialty Start Date End Date Winifred Armstrong APRN, CANCER PROGRAM COORDINATOR [address] [place] [address] PCP - General Advanced Practice Nurse 10/17/19 Micky Dickson MD [address] [place] [address] [address] [place] [address] PCP - General Family Medicine 09/25/23 07/04/24 Silva Vicente MD [address] [place] [address] [address] CASTRO [address] [place] [address] PCP - General Family Medicine 07/05/24 12/29/24 Manisha Galeas MD [address] [place] [address] [address] CASTRO [address] [place] [address] PCP - General Family Medicine 12/30/24 01/20/25 Theodora Berry, FRONTEND ENGINEER, CANCER PROGRAM COORDINATOR [address] [address] PCP - General Advanced Practice Nurse 01/21/25 Mac Sher MD #2 [place] [address] Consulting Physician Neurology 09/15/15 Robert Mae MD #2 [place] [address] Consulting Physician Pulmonary Disease 10/27/22 Maryann El, FRONTEND ENGINEER, DIRECTOR HEALTH #2 [place] [address] Nurse Practitioner Advanced Practice Nurse 12/21/22 Germania Navarro, FRONTEND ENGINEER, CANCER PROGRAM COORDINATOR #2 [place] [address] Nurse Practitioner Advanced Practice Nurse 10/04/23 Leny Morales MD #2 [place] [address] Consulting Physician Gastroenterology 01/19/23 documented as of this encounter
--- OUTSIDE RECORDS SUMMARY | 2025-03-26 09:13 | XMS_ITS | Encounter Summary ---
Author Organization [facility] Address [address] [place] [address] Phone Care Team Providers Care Corn Husk Baler Name Role Phone Mac Sher MD Unavailable [phone] Robert Mae MD Unavailable Maryann El GUITAR PLAYER, DIESEL POWERPLANT MECHANIC Unavailable + [phone] Germania Navarro APRN, FOREIGN LANGUAGE INSTRUCTOR Unavailable Leny Morales MD Unavailable [phone] Theodora Berry GUITAR PLAYER, FOREIGN LANGUAGE INSTRUCTOR Primary Care Provider [phone] Reason for Visit * Reason Onset Date Comments Advice Only 03/03/2025 Joint Pain 03/03/2025 Joint Swelling 03/03/2025 Urinary Frequency 03/03/2025 Encounter Details Date Type Department Care Team (Late st Contact Info) Description 03/03/2025 Nurse Triage [facility] [address] [place] [address] Theodora Berry, GUITAR PLAYER, FOREIGN LANGUAGE INSTRUCTOR 2 [facility] [address] [place] [address] Advice Only; Joint Pain; Joint Swelling; Urinary Frequency Social History Tobacco Use Types Packs/Day Years Used Date Smoking Tobacco: Former Cigarettes 0.5 25 Smokeless Tobacco: Never Comments:occassional Alcohol Use Standard Drinks/Week Comments Not Currently 0 (1 standard drink = 0.6 oz pur e alcohol) [facility] Utilities Answer Date Recorded In [...] often do you attend chur ch or yazidi services? Never 01/19/2025 Do you belong to any clubs o r organizations such as gnosticist groups, unions, fraternal or athletic groups, or [...] Score - Questions 1-9 15 04/0 10/2024 [facility] - Occupational Stress [...] any time in the past 12 m [facility], were you homeless or living in a usp (including now)? No 01/19/2025 Sexually Active Control Partners Comments Not Currently Comments No Sex and Gender Information Value Date Recorded Sex Assigned at Female 06/05/2023 10:27 AM CDT Legal Sex Female 10:21 PM CDT Gender Identity Female 06/05/2023 10:27 AM CDT Sexual Orientation Not on file documented as of this encounter Miscellaneous Notes * Telephone Encounter - Monica Albarado RN - 03/03/2025 3:18 PM CDT SITUATION: All over joint pain and swelling, abdomina/hand/feet swelling, chills BACKGROUND: Patient contacting PCP office. Per chart review, emphysema hypertension, multiple lung nodules on CT, ASSESSMENT: Symptom Description / Location: All over joint pain and swelling, in wrists, arms, knees, feet, ankles, neck, hands, etc. Ongoing for 2 -3 weeks, not improving, gradually worsening. Feet, ankles, hands, and fingers visibly swollen daily per patient. Improves some with resting and elevation. Does not ever fully resolve over the last 14-21 days. Joint pain and swelling wakes her at night. Urinating every 20-30 minutes every day, started approximately 2 weeks ago or 14 days ago. Reports abdomen feels hard and is visibly swollen constantly for about 1 month now. Lower abdominal/pelvic pain present for 14 days. Says it is more where ovaries are and in low back.Constant Reports intermittent chills-tarted approximatlely 2 weeks ago or 14 days ago. Reports history of mild COPD, increased shortness of breath with exertion over last 2 weeks. Deniesshortness of breath at rest or when just walking. Hurts to walk due to joint pain and swelling. History of constipation, takes laxatives, has explosive diarrhea after eating. Last bowel movement 03/02/2025, was watery stool, no blood or black tarry stool Reports ongoing issues with nausea but has not had vomiting. Pain: 7/10 pain all over; 7/10 pelvic pain present Fever: Denies fever. Reports has not checked but does not feel like has had any fevers since started. Justhas intermittent cold chills LMP: Hysterectomy RECOMMENDATION: Go to emergency department now Patient/caller refuses disposition of: GO to ED now Reiterated the importance of following recommendation as symptoms could indicate a serious or life-threatening situation Patient response: Caller states she will go to [facility] for evaluation but will wait until daughtergets home (says it will be a couple hours) Offered to call ambulance and she declines. States ruma go by private vehicle when daughter gets home. Requested she call back if does not end up going to emergency department for any reason. Otherwise call once discharge in regards to follow up. Advised if difficulty breathing, worsening symptoms, severe pain to call 911. Notified provider will review since not planning to go right away and if any additional recommendations office team will call back to notify. Encounter routed to provider high priority to notify. Please call patient back with provider advice regarding emergency department disposition refusal/waiting 2 hours to go to emergency department . - See care advice and disposition for Guideline. First positive answer recorded, all responses to prior questions were negative. If symptoms increase, change or if new symptoms develop, call your health care provider or call back. Recommendations were based on caller information and is not a diagnosis. Verified and reviewed all triage information with caller. Reason for Disposition MODERATE - SEVERE SWELLING of abdomen (e.g., looks very distended or swollen) that is NEW-ONSET or much worse Protocols used: Abdomen Bloating and [id number] * Telephone Encounter - Juan Daniel Lucero - 03/03/2025 3:15 PM CDT Symptoms: Vomiting, Body Aches, Foot or Ankle Swelling, Foot or Ankle Pain - Not From Injury, UrineSymptoms Outcome: Transfer to faculty i on call medical assistant queue Reason: Trouble walking The caller accepted this outcome. Caller Denied: * Can't stand (unless normally can't stand) * Acting confused * Trouble breathing * Chest pain * Blood in the vomit * Severe headache documented in this encounter Plan of Treatment Upcoming Encounters Date Type Department Care Team (Late st Contact Info) Description 04/02/2025 10:30 AM CDT Office Visit [facility] #[address] [place] [address] Sundar Tristan MD #2 [facility] [address] [place] [address] 04/03/2025 10:00 AM CDT [facility] - [facility]astroenterology - [place] [address] [place] [address] Feliberto Winston MD [address] [facility] [facility] [address] [address] 04/03/2025 11:00 AM CDT [facility] - [place] [address] [facility] [place] [address] Maryann El, GUITAR PLAYER, DIESEL POWERPLANT MECHANIC #2 [place] [address] 04/22/2025 10:30 AM CDT Office Visit [facility] - Family Medicine - [place] [address] [place] [address] Theodora Berry, GUITAR PLAYER, FOREIGN LANGUAGE INSTRUCTOR 2 [facility] [address] [address] documented as of this encounter Visit Diagnoses Not on filedocumented in this encounter Additional Health Concerns Assessment Noted Time PHQ-9 Depression Total Score: 15 025 10:40 AM CDT documented as of this encounter Care Teams Corn Husk Baler Relationship Specialty Start Date End Date Theodora Berry, CESAR, FOREIGN LANGUAGE INSTRUCTOR 2 [facility] [address] [address] PCP - General Advanced Practice Nurse 01/21/25 Mac Sher MD #2 [place] [address] Consulting Physician Neurology 09/15/15 Robert Mae MD #2 [facility] [place] [address] Consulting Physician Pulmonary Disease 10/27/22 Maryann El, GUITAR PLAYER, DIESEL POWERPLANT MECHANIC #[address] [place] [address] Nurse Practitioner Advanced Practice Nurse 12/21/22 Germania Navarro APRN, FOREIGN LANGUAGE INSTRUCTOR #2 [place] [address] Nurse Practitioner Advanced Practice Nurse 10/04/23 Leny Morales MD #[address] [place] [address] Consulting Physician Gastroenterology 01/19/23 documented as of this encounter
--- OUTSIDE RECORDS SUMMARY | 2025-03-26 09:13 | XMS_ITS | Encounter Summary ---
Author Organization [facility] Address [address] [place] [address] Phone Care Team Providers Care Dope And Fabric Worker Name Role Phone Mac Sher MD Unavailable Winifred Armstrong ELECTRICAL INSPECTOR, EMBOSSING MACHINE OPERATOR Primary Care Provider Micky Dickson MD Primary Care Provider [phone] Robert Mae MD Unavailable Maryann El APRN, [facility] Unavailable + [phone] Germania Navarro APRN, EMBOSSING MACHINE OPERATOR Unavailable Leny Morales MD Unavailable [phone] Silva Vicente MD Primary Care Provider [phone] Manisha Galeas MD Primary Care Provider [phone] Theodora Berry ELECTRICAL INSPECTOR, EMBOSSING MACHINE OPERATOR Primary Care Provider [phone] Reason for Visit * Reason Comments Medication Refill Encounter Details Date Type Department Care Team (Late st Contact Info) Description 10/10/2022 Refill [facility] - Neurology [facility] #[address] [place] [address] Mac Sher MD #[address] [place] [address] Medication Refill Social History Tobacco Use Types [...] Coronavirus/COVID-19? No / Unsure 09/26/2022 9:35 AM ELECTRIC NEEDLE SPECIALIST documented as of this encounter Plan of Treatment Upcoming Encounters Date Type Department Care Team (Late st Contact Info) Description 04/02/2025 10:30 AM CDT Office Visit [facility] #[address] [place] [address] Sundar Tristan MD #2 [facility] [address] [place] [address] 04/03/2025 10:00 AM CDT Office Visit [facility] - Gastroenterology - [place] [address] [place] [address] Feliberto Winston MD 2 [facility] [address] [place] [address] 04/03/2025 11:00 AM CDT [facility] - [place] [address] [place] [address] Maryann El APRN, TOXICOLOGY SUPERVISOR #2 [facility] [place] [address] 04/22/2025 10:30 AM CDT Office Visit [facility] - Family [facility] - [place] #[address] [place] [address] Theodora Berry, ELECTRICAL INSPECTOR, EMBOSSING MACHINE OPERATOR [address] [facility] [address] [place] [address] documented as of this encounter Visit Diagnoses Not on filedocumented in this encounter Additional Health Concerns Infection Onset Date Last Indicated Resolved Time COVID - 19 09/03/2024 09/03/2024 09/03/2024 9:25 PM ELECTRIC NEEDLE SPECIALIST documented as of this encounter Care Teams Dope And Fabric Worker Relationship Specialty Start Date End Date Winifred Armstrong APRN, EMBOSSING MACHINE OPERATOR [address] [place] [address] PCP - General Advanced Practice Nurse 10/17/19 Micky Dickson MD [address] [place] [address] [address] [place] [address] PCP - General Family Medicine 09/25/23 07/04/24 Silva Vicente MD [address] [place] [address] [place] [address] PCP - General Family Medicine 07/05/24 12/29/24 Manisha Galeas MD [address] [facility] [place] [address] PCP - General Family Medicine 12/30/24 01/20/25 Thoedora Berry, ELECTRICAL INSPECTOR, EMBOSSING MACHINE OPERATOR 2 [place] [address] [facility] [address] [place] [address] PCP - General Advanced Practice Nurse 01/21/25 Mac Sher MD #[address] [place] [address] Consulting Physician Neurology 09/15/15 Robert Mae MD #[address] [place] [address] Consulting Physician Pulmonary Disease 10/27/22 Maryann El APRN, TOXICOLOGY SUPERVISOR #[address] [place] [address] Nurse Practitioner Advanced Practice Nurse 12/21/22 Germania Navarro APRN, EMBOSSING MACHINE OPERATOR #[address] [place] [address] Nurse Practitioner Advanced Practice Nurse 10/04/23 Leny Morales MD #[address] [place] [address] Consulting Physician Gastroenterology 01/19/23 documented as of this encounter
--- OUTSIDE RECORDS SUMMARY | 2025-03-26 09:13 | XMS_ITS | Encounter Summary ---
Author Organization [facility] Address [address] [place] [address] Phone Care Team Providers Care Hyperion Analyst Name Role Phone Mac Sher MD Unavailable [phone] Winfired Armstrong INTERNET CAFE MANAGER, ULTRASOUND TESTER Primary Care Provider Micky Dickson MD Primary Care Provider [phone] Robert Mea MD Unavailable Maryann El APRN, [facility] Unavailable + [phone] Germania Navarro APRN, ULTRASOUND TESTER Unavailable Leny Morales MD Unavailable [phone] Silva Vicente MD Primary Care Provider [phone] Manisha Galeas MD Primary Care Provider [phone] Theodora Berry INTERNET CAFE MANAGER, ULTRASOUND TESTER Primary Care Provider [phone] Reason for Visit * Reason Comments Medication Refill Encounter Details Date Type Department Care Team (Late st Contact Info) Description 10/25/2021 Refill [facility] - Neurology [facility] #[address] [place] [address] Mac Sher MD #[address] [place] [address] Medication Refill Social History Tobacco Use Types [...] COVID-19? No / Unsure 10/07/2021 5:20 AM LUG BREAKER AND WIRE PULLER documented as of this encounter Plan of Treatment Upcoming Encounters Date Type Department Care Team (Late st Contact Info) Description 04/02/2025 10:30 AM CDT Office Visit [facility] #[address] [place] [address] Sundar Tristan MD #2 [facility] [address] [place] [address] 04/03/2025 10:00 AM CDT Office Visit [facility] - Gastroenterology - [place] #[address] [place] [address] Feliberto Winston MD 2 [facility] [address] [place] [address] 04/03/2025 11:00 AM CDT Office Visit [facility] - Neurology - [place] #[address] [place] [address] Maryann El APRN, STATEMENT PROCESSOR #2 [facility] [address] 04/22/2025 10:30 AM CDT Office Visit [facility] - Family [facility] #[address] [place] [address] Theodora Berry, INTERNET CAFE MANAGER, ULTRASOUND TESTER [address] [place] [address] [place] [address] documented as of this encounter Visit Diagnoses Not on filedocumented in this encounter Additional Health Concerns Infection Onset Date Last Indicated Resolved Time COVID - 19 09/03/2024 09/03/2024 09/03/2024 9:25 PM LUG BREAKER AND WIRE PULLER documented as of this encounter Care Teams Hyperion Analyst Relationship Specialty Start Date End Date Winifred Armstrong APRN, ULTRASOUND TESTER [address] [place] [address] PCP - General Advanced Practice Nurse 10/17/19 Micky Dickson MD [address] [place] [address] DR [address] [place] [address] PCP - General Family Medicine 09/25/23 07/04/24 Silva Vicente MD [address] [place] [address] [place] [address] PCP - General Family Medicine 07/05/24 12/29/24 Manisha Galeas MD [address] [place] [address] [address] [place] [address] PCP - General Family Medicine 12/30/24 01/20/25 Theodora Berry, INTERNET CAFE MANAGER, ULTRASOUND TESTER [address] [place] [address] [place] [address] PCP - General Advanced Practice Nurse 01/21/25 Mac Sher MD #[address] [place] [address] Consulting Physician Neurology 09/15/15 Robert Mae MD #[address] [place] [address] Consulting Physician Pulmonary Disease 10/27/22 Maryann El APRN, STATEMENT PROCESSOR #[address] [place] [address] Nurse Practitioner Advanced Practice Nurse 12/21/22 Germania Navarro APRN, ULTRASOUND TESTER #[address] [place] [address] Nurse Practitioner Advanced Practice Nurse 10/04/23 Leny Morales MD #[address] [place] [address] Consulting Physician Gastroenterology 01/19/23 documented as of this encounter
--- OUTSIDE RECORDS SUMMARY | 2025-03-26 09:13 | XMS_ITS | Encounter Summary ---
Author Organization [facility] Address [address] [place] [address] Phone Care Team Providers Care Grid Maker Name Role Phone Mac Sher MD Unavailable [phone] Micky Dickson MD Primary Care Provider [phone] Robert Mae MD Unavailable Maryann El APRN, PAN TANK WORKER Unavailable + [phone] Germania Navarro APRN, LIGHTER CAPTAIN Unavailable Leny Morales MD Unavailable [phone] Silva Vicente MD Primary Care Provider [phone] Manisha Galeas MD Primary Care Provider [phone] Theodora Berry TRANSPORTATION MUSEUM HELPER, LIGHTER CAPTAIN Primary Care Provider Reason for Visit * Reason Comments Medication Refill Encounter Details Date Type Department Care Team (Late st Contact Info) Description 02/24/2024 Refill [facility] - Neurology - [place] #[address] [place] [address] Maryann El, CESAR, PAN TANK WORKER #[address] [place] [address] Medication Refill Social History Tobacco Use Types [...] AM CDT Medication(s) refilled and signed per [facility] Chronic Medication Refill Standing Order for Pediatricand [...] Dept 12/15/23 Procedure Visit Mac Sher MD [facility] [place] 11/16/23 Office Visit Mac Sher MD [facility] [place] 08/25/23 Procedure Visit Mac Sher MD [facility] [place] 05/26/23 Procedure Visit Mac Sher MD [facility] [place] [place] 05/09/23 Telemedicine Mac Sher MD [facility] Neu[place] 03/01/23 Procedure Visit Mac Sher MD [facility] Neurology [facility] [place] Showing recent visits within past 365 days and meeting all other requirements Future Appointments Date Type Provider Dept 03/08/24 Appointment Mac Sher MD [facility] [place] [facility] 05/14/24 Appointment Maryann El APRN, PAN TANK WORKER [facility] Neurology [facility] Showing future appointments within next 90 days and meeting all other requirements Passed - Patient has established therapy with Antidementia Agents for at least 6 months documented in this encounter Plan of Treatment Upcoming Encounters Date Type Department Care Team (Late st Contact Info) Description 04/02/2025 10:30 AM CDT Office Visit [facility] #[address] [place] [address] Sundar Tristan MD #2 [facility] [address] [place] [address] 04/03/2025 10:00 AM CDT Office Visit [facility] - Gastroenterology - [place] [address] [place] [facility] [place] [address] Feliberto Winston MD 2 [facility] [address] [place] [address] 04/03/2025 11:00 AM CDT Office Visit [facility] - Neurology - [place] [address] [place] [facility] [place] [address] Maryann El APRN, PAN TANK WORKER #[address] [place] [address] 04/22/2025 10:30 AM CDT Office Visit [facility] Medical [facility] - Family Medicine - [place] #2 [place] [address] Theodora Berry APRN, LIGHTER CAPTAIN 2 [facility] 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 [facility] [address] [place], [place] [address] PCP - General Advanced Practice Nurse 01/21/25 Mac Sher MD #[address] [place] [address] Consulting Physician Neurology 09/15/15 Robert Mae MD #2 [address] [facility] [place] [address] Consulting Physician Pulmonary Disease 10/27/22 Maryann El APRN, PAN TANK WORKER #2 [address] [facility] [place] [address] Nurse Practitioner Advanced Practice Nurse 12/21/22 Germania Navarro APRN, [place] #[address] [place] [address] Nurse Practitioner Advanced Practice Nurse 10/04/23 Leny Morales MD #[address] [place] [address] Consulting Physician Gastroenterology 01/19/23 documented as of this encounter
--- OUTSIDE RECORDS SUMMARY | 2025-03-26 09:13 | XMS_ITS | Encounter Summary ---
Author Organization [facility] Address [address] [place] [address] Phone Care Team Providers Care Packaging Assembler Name Role Phone Mac Sher MD Unavailable Winifred Armstrong DIESEL ENGINE TESTER, MORTGAGE PROCESSING CLERK Primary Care Provider Micky Dickson MD Primary Care Provider [phone] Robert Mae MD Unavailable Maryann El APRN, [facility] Unavailable + [phone] Germania Navarro APRN, MORTGAGE PROCESSING CLERK Unavailable Leny Morales MD Unavailable [phone] Silva Vicente MD Primary Care Provider [phone] Manisha Galeas MD Primary Care Provider [phone] Theodora Berry DIESEL ENGINE TESTER, MORTGAGE PROCESSING CLERK Primary Care Provider [phone] Reason for Visit * Reason Comments Medication Refill Encounter Details Date Type Department Care Team (Late st Contact Info) Description 05/12/2020 Refill [facility] - [facility]rology - [place] #1 [facility] [place] [address] Mac Sher MD [address] [place] [address] Medication Refill Social History Tobacco Use Types [...] Description 04/02/2025 10:30 AM CDT Office Visit [facility] #[address] [place] [address] Sundar Tristan MD #2 [facility] [address] [place] [address] 04/03/2025 10:00 AM CDT Office Visit [facility] Medical [facility] - Gastroenterology [facility] #[address] [place] [address] Feliberto Winston MD 2 [facility] [address] [place] [address] 04/03/2025 11:00 AM CDT [facility] - [place] [address] [place] [id number] Maryann El, DIESEL ENGINE TESTER, SERVER SERVICE ASSISTANT [address] [place] [address] 04/22/2025 10:30 AM CDT Office Visit [facility] - [place] [facility] [place] [place] [address] Theodora Berry APRN, MORTGAGE PROCESSING CLERK [address] 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 documented as of this encounter Care Teams Packaging Assembler Relationship Specialty Start Date End Date Winifred Armstrong APRN, MORTGAGE PROCESSING CLERK [address] [place] [address] PCP - General Advanced Practice Nurse 10/17/19 Micky Dickson MD 4 [facility] [address] [place] [address] PCP - General Family Medicine 09/25/23 07/04/24 Silva Vicente MD [address] [place] [address] [address] [place] [address] PCP - General Family Medicine 07/05/24 12/29/24 Manisha Galeas MD 4 [facility] [address] [place] [address] PCP - General Family Medicine 12/30/24 01/20/25 Theodora Berry, CESAR, MORTGAGE PROCESSING CLERK [address] [facility] [place] [facility] [address] [place] [address] PCP - General Advanced Practice Nurse 01/21/25 Mac Sher MD [address] [place] [address] Consulting Physician Neurology 09/15/15 Robert Mae MD #[address] [place] [id number] Consulting Physician Pulmonary Disease 10/27/22 Maryann El APRN, SERVER SERVICE ASSISTANT [address] [place] [address] Nurse Practitioner Advanced Practice Nurse 12/21/22 Germania Navarro APRN, MORTGAGE PROCESSING CLERK [address] [place] [address] Nurse Practitioner Advanced Practice Nurse 10/04/23 Leny Morales MD #[address] [place] [address] Consulting Physician Gastroenterology 01/19/23 documented as of this encounter
--- OUTSIDE RECORDS SUMMARY | 2025-03-26 09:13 | XMS_ITS | Clinical Summary ---
Author Organization [facility] Address [address] [place] [address] Phone Care Team Providers Care Forklift Operator Name Role Phone Mac Sher MD Unavailable Robert Mae MD Unavailable Maryann El APRN, [facility] Unavailable + [phone] Germania Navarro APRN, ETIOLOGY TEACHER Unavailable Leny Morales MD Unavailable [phone] Theodora Berry CONSTRUCTION INSPECTOR, ETIOLOGY TEACHER Primary Care Provider [phone] Allergies Active Allergy Reactions Criticality Noted Date Comments Iron Shortness of Breath,Itching 06/03/20 16 Medications citalopram (CeleXA) 40 MG Tablet Take 40 mg by mouth daily. Active traZODone (DESYREL) 150 MG TabletIndicatio ns:once a day Take 150 mg by mouth nightly. Indications: once a day Active busPIRone HCl (BUSPAR) 30 MG Tablet Take by mouth 2 times daily. 021 Active oxyCODONE-aceta minophen (PERCOCET) 5-325 MG Tablet [...] 1 dose. 8 Tablet 2 024 Active Fluticasone-Ume clidin-Vilant (Trelegy Ellipta) 100-62.5-25 MCG/ACT AEROSOL POWDER, BREATH ACTIVATED take 1 Puff by inhalation daily. 1 Each 5 024 Active lactulose (CHRONULAC) 10 GM/15ML SolutionIndicat ions:Constipati on, unspecified constipation type Take 30 mL by mouth 3 times daily as needed for Constipation - 1st line. 946 mL 3 025 Active propranolol (INDERAL) 20 MG Tablet TAKE 1 TABLET BY MOUTH THREE TIMES DAILY 90 Tablet 2 025 Active buPROPion (WELLBUTRIN) 100 MG Tablet Take 100 mg by mouth 2 times daily. Active budesonide-form oterol fumarate (Symbicort) 160-4.5 MCG/ACT Aerosol take 2 Puffs by inhalation 2 times daily as needed. Active Benzonatate 200 MG Capsule Take 200 mg by mouth 3 times daily as needed. Active divalproex (DEPAKOTE) 250 MG Tablet Delayed ResponseIndicat ions:Chronic migraine w/o aura w/o status migrainosus, not intractable Take 1 Tablet by mouth 2 times daily. 60 Tablet 2 025 Active donepezil (ARICEPT) 10 MG Tablet Take 1 tablet by mouth nightly 90 Tablet 025 Active pantoprazole (PROTONIX) 40 MG Tablet Delayed ResponseIndicat ions:Gastroesop hageal reflux disease, unspecified whether esophagitis present Take 1 tablet by mouth once daily 90 Tablet 025 Active armodafinil (NUVIGIL) 150 MG Tablet 025 Active methocarbamol (ROBAXIN) 500 MG TabletIndicatio ns:Spinal stenosis of lumbar region, unspecified whether neurogenic claudication present 025 Active risperiDONE (RISPERDAL) 2 MG Tablet Active dicyclomine (BENTYL) 20 MG Tablet Take 1 Tablet by mouth 2 times daily. 180 Tablet Active primidone (MYSOLINE) 250 MG TabletIndicatio ns:Essential tremor Take 1 Tablet by mouth nightly. 90 Tablet Active celecoxib (CeleBREX) 200 MG Capsule Take 1 Capsule by mouth daily. 90 Capsule Active topiramate (TOPAMAX) 100 MG TabletIndicatio ns:Chronic migraine w/o aura w/o status migrainosus, not intractable TAKE 1 TABLET BY MOUTH TWO (2) TIMES DAILY. 60 Tablet 2 Active risperiDONE (risperDAL) 1 MG Tablet Active ondansetron (ZOFRAN-ODT) 4 MG TABLET DISPERSIBLEIndi cations:Nausea Take 1 Tablet by mouth every 8 hours as needed for Nausea - 1st line. 30 Tablet 1 Active topiramate (TOPAMAX) 100 MG TabletIndicatio ns:Chronic migraine w/o aura w/o status migrainosus, not intractable Take 1 Tablet by mouth 2 times daily. 60 Tablet 025 2024 Discontinued ondansetron (ZOFRAN-ODT) 4 MG TABLET DISPERSIBLE Take 1 Tablet by mouth every 8 hours as needed for Nausea - 1st line. 10 Tablet 025 2024 Discontinued(R eorder) phenazopyridine (Pyridium) 100 MG Tablet Take 1 Tablet by mouth 3 times daily as needed for Pain for up to 3 days. 15 Tablet 025 2024 amoxicillin-cla vulanate (AUGMENTIN) 875-125 MG TabletIndicatio ns:Enteritis Take 1 Tablet by mouth 2 times daily for 10 days. 20 Tablet 025 2024 Active Problems Problem Noted Date Diagnosed Date [...] Encounters Date Type Department Care Team Description 03/25/2025 2:45 PM CDT Telemedicine [facility] Family Medicine [facility] [address] [place] [address] Teena Chopra CONSTRUCTION INSPECTOR, ETIOLOGY TEACHER Viral URI (Primary Dx) 03/25/2025 Travel 03/25/2025 Telephone [facility] [address] [place] [address] [phone] Theodora Berry, CONSTRUCTION INSPECTOR, ETIOLOGY TEACHER Referral 03/25/2025 Nurse Triage [facility] [address] [place] [address] [phone] Theodora Berry APRN, ETIOLOGY TEACHER Advice Only; Sore Throat; Generalized Body Aches; Headache; Fever 03/18/2025 Telephone [facility] [address] [place] [phone] Theodora Berry APRN, ETIOLOGY TEACHER Referral 03/14/2025 9:00 AM CDT Office Visit [facility] Gastroenterology [facility] [address] [place] [address] Germania Navarro APRN, ETIOLOGY TEACHER Generalized abdominal pain (Primary Dx); Nausea; Diarrhea, unspecified type; Enteritis Discharge Disposition: Discharged to home or Selfcare 03/13/2025 Travel 03/10/2025 11:00 AM CDT [facility] [place] [address] Oealex, Theodora N, CONSTRUCTION INSPECTOR, ETIOLOGY TEACHER Lower abdominal pain (Primary Dx) Discharge Disposition: Discharged to home or Selfcare 03/10/2025 Travel 03/08/2025 Travel 03/07/2025 Results [facility] [address] [place] [address] Oealex, Theodora N, CONSTRUCTION INSPECTOR, ETIOLOGY TEACHER XR SHOULDER COMPLETE RIGHT 03/04/2025 9:53 AM CDT - 03/04/2025 11:59 PM CDT [facility] [address] [place] [address] Oealex, Theodora N, CONSTRUCTION INSPECTOR, ETIOLOGY TEACHER Discharge Disposition: Discharged to home or Selfcare 03/04/2025 9:53 AM CDT - 03/04/2025 11:59 PM CDT [facility] [address] [place] [address] Oealex, Theodora N, CONSTRUCTION INSPECTOR, ETIOLOGY TEACHER Discharge Disposition: Discharged to home or Selfcare 03/04/2025 Results [facility] [address] [place] [address] Oehl, Theodora N, CONSTRUCTION INSPECTOR, ETIOLOGY TEACHER XR SHOULDER COMPLETE LEFT, XR LUMBAR SPINE MINIMUM 4 VIEWS 03/03/2025 4:40 PM CDT - 03/03/2025 7:45 PM CDT Emergency [facility] [address] [place] [address] Olman Castle MD Landry, Scott Lewis, MD Urinary frequency Discharge Disposition: Discharged to home or Selfcare 03/03/2025 Travel 03/03/2025 Nurse Triage [facility] [address] [place] [phone] Oealex, Theodora N, CONSTRUCTION INSPECTOR, ETIOLOGY TEACHER Advice Only; Joint Pain; Joint Swelling; Urinary Frequency 03/02/2025 Travel 02/28/2025 Refill [facility] [place] [address] [place] [address] Maryann El, CONSTRUCTION INSPECTOR, GRAPE CRUSHER Medication Refill 02/27/2025 10:05 AM CDT - 02/27/2025 11:59 PM CDT [facility] [address] [place] [address] Oealex, Theodora Araujo, CONSTRUCTION INSPECTOR, ETIOLOGY TEACHER Discharge Disposition: Discharged to home or Selfcare 02/26/2025 Travel 02/21/2025 Telephone [facility] [address] [place] [address] Kristi, Theodora N, CONSTRUCTION INSPECTOR, ETIOLOGY TEACHER Advice Only; Orders; Follow-up 02/19/2025 Refill [facility] Family Medicine - [place] [address] [place] [address] Kristi, Theodora Araujo, CONSTRUCTION INSPECTOR, ETIOLOGY TEACHER Medication Refill 02/07/2025 Results Follow-Up [facility] - Gastroenterology - [place] [address] [place] [address] Sabina Boogie, DIRECTOR OF STUDENT FINANCIAL AID NM GASTRIC EMPTYING STUDY 01/27/2025 Refill [facility] - [place] [address] [place] [address] Mac Sher MD Medication Refill 01/27/2025 Refill [facility] [address] [place] [address] Mac Sher MD 01/24/2025 9:22 AM CDT - 01/24/2025 11:59 PM CDT [facility] [address] [place] [address] Robert Mae MD Discharge Disposition: Discharged to home or Selfcare 01/23/2025 [facility] [address] [place] [address] Germania Navarro APRN, ETIOLOGY TEACHER Medication Refill 01/22/2025 Travel 01/21/2025 10:30 AM CDT [facility] [address] [place] [address] Theodora Berry APRN, ETIOLOGY TEACHER Encounter for preventative adult health care exam with abnormal findings (Primary Dx); Gastroesophageal reflux disease, unspecified whether esophagitis present; Anxiety disorder, unspecified type; Spinal stenosis of lumbar region, unspecified whether neurogenic claudication present; Irritable bowel syndrome with both constipation and diarrhea; Other emphysema (HCC); Depression, unspecified depression type Discharge Disposition: Discharged to home or Selfcare 01/20/2025 9:59 AM CDT - 01/20/2025 11:59 PM CDT Hospital [facility] Nuclear Medicine [address] [place] [address] Kwadwo Montalvo MD Discharge Disposition: Discharged to home or Selfcare 01/19/2025 Travel 01/17/2025 [facility] [address] [place] [address] Germania Navarro APRN, ETIOLOGY TEACHER Medication Refill 01/16/2025 [facility]phone [facility] [address] [place] [phone] Provider, None New Patient 01/12/2025 Travel 01/01/2025 Travel 12/31/2024 [facility]phone [facility] [address] [place] [address] Kwadwo Montalvo MD 12/30/2024 8:38 AM CDT [facility]est[facility] [address] [place] [address] Jean-Paul King APRN, CECIL 12/30/2024 8:30 AM CDT - 12/30/2024 9:00 AM CDT [facility] [address] [place] [address] Kwadwo Montalvo MD EGD--RETAINED FOOD, NO ULCERS 12/30/2024 7:30 AM CDT Ancillary Procedure [facility] Gi Lab Main [address] [place] [address] Kwadwo Montalvo MD 12/30/2024 7:23 AM CDT - 12/30/2024 9:55 AM CDT [facility] Pre[facility]Pacu II [address] [place] [address] Kwadwo Montalvo MD Discharge Disposition: Discharged to home or Selfcare 12/30/2024 Travel 12/28/2024 Refill [facility] - Neurology - [place] [address] [place] [address] Maryann El APRN, GRAPE CRUSHER Medication Refill 12/26/2024 Telephone [facility] - [facility] - [place] [address] [place] [address] Mac Sher MD 12/25/2024 Refill [facility] - Gastroenterology - [place] [address] [place] [address] Germania Navarro APRN, ETIOLOGY TEACHER Medication Refill 12/24/2024 3:00 PM MOLDER INFLATED BALL Immunization [facility] - [facility]rology - [place] [address] [place] [address] [facility] Acute migraine (Primary Dx) Discharge Disposition: Discharged to home or Selfcare 12/24/2024 Travel from Last 3 Months Immunizations Immunization Administration [...] 25 Smokeless Tobacco: Never Tobacco Cessation:Counseling Given: No Comments:occassional Alcohol Use Standard Drinks/Week Comments Not Currently 0 (1 standard drink = 0.6 oz pur e alcohol) [email or web address] Answer Date Recorded In the past 12 months has [employer], gas, oil, or water [employer] threatened to shut off services in your [...] How often do you attend chur or rastafarian services? Never 01/19/2025 Do you belong to any clubs o r organizations such as worship groups, unions, fraternal or athletic groups, or [...] Score - Questions 1-9 15 04/0 10/2024 [facility] - Occupational Stress Questionnaire Answer Date Recorded [...] any time in the past 12 m [facility], were you homeless or living in a detention (including now)? No 01/19/2025 Sexually Active Control Partners Comments Not Currently Comments No Sex and Gender Information Value Date Recorded Sex Assigned at Female 06/05/2023 10:27 AM CDT Legal Sex Female 10:21 PM CDT Gender Identity Female 06/05/2023 10:27 AM CDT Sexual Orientation Not on file Last Filed Vital Signs Vital Sign Reading Time Taken Comments Blood Pressure 120/80 03/14/2025 8:50 AM CDT Pulse 68 03/14/2025 8:50 AM CDT Temperature 36.7 C (98.1 F) 03/14/2025 8:50 AM CDT Respiratory Rate 16 03/10/2025 11:02 AM CDT Oxygen Saturation 98% 03/14/2025 8:50 AM CDT Inhaled Oxygen Concentration - - Weight 57.6 kg (127 lb) 03/14/2025 8:50 AM CDT Height 157.5 cm (5' 2) 03/14/2025 8:50 AM CDT Body Mass Index 23.23 03/14/2025 8:50 AM CDT Plan of Treatment Upcoming Encounters Date Type Department Care Team (Late st Contact Info) Description 04/02/2025 10:30 AM CDT Office Visit [facility] [address] [place] [address] Sundar Tristan MD [address]2 [facility] [address] [place] [address] 04/03/2025 10:00 AM CDT Office Visit [facility] - Gastroenterology - [place] [address] [place] [address] Feliberto Winston MD 2 [facility] [address] [place] [address] 04/03/2025 11:00 AM CDT [facility] - [place] [address] [place] [phone] Maryann El APRN, GRAPE CRUSHER [address] [place] [address] 04/22/2025 10:30 AM CDT [facility] - Family Medicine - [place] [address] [place] [address] Theodora Berry, CONSTRUCTION INSPECTOR, ETIOLOGY TEACHER 2 [facility] [place]. [address] [place] [address] Health Maintenance Due Date Last Done Comments [...] on patient's age to complete this topic Human Papillomavirus (HPV) Immunization Aged Out No longer eligible based on patient's age to complete this topic Meningococcal Immunization (ACWY) Aged Out No longer eligible based on patient's age to complete this topic Rotavirus Immunization Aged Out No lo nger eligible based on patient's age to complete this topic Medical Devices Implanted Type Area [employer] Psychologist Device Identifier Shelf Expiration Date Model / Serial / Lot Cement Bone Orthoset 2 20gm - [id number] Implanted:Qty : 2 on 10/07/2021 by Manuel Ventura MD at [facility] IMPLANT Right: Shoulder [employer] 12/20/2021 [id number] / [id number] / [id number] Shoulder Humeral Stem Reunion Tsa Press Fit 11mm - [id number] Implanted:Qty : 1 on 10/07/2021 by Manuel Ventura MD at [facility] IMPLANT Right: Shoulder [employer] 11/23/2022 [id number] / [id number] / [id number] Humeral Head Implanted:Qty : 1 on 10/07/2021 by Manuel Ventura MD at [facility] Right: Shoulder [employer]ARA 01/26/2022 [id number] / [id number] / [id number] Procedures Procedure Name Priority Date/Time Associated Diagnosis Comments XR LUMBAR SPINE MINIMUM 4 VIEWS Routine 03/04/2025 10:18 AM CDT Lumbar pain XR SHOULDER COMPLETE RIGHT Routine 03/04 10:14 AM CDT Right shoulder pain, unspecified chronicity CT ABDOMEN PELVIS W/ CONTRAST Stat with Interpretation 03/03/2025 6:21 PM CDT CBC WITH AUTO DIFFERENTIAL STAT 03/03 5:06 PM CDT CREATINE KINASE (CK) TOTAL STAT 03/03 5:06 PM CDT B-TYPE NATRIURETIC PEPTIDE (BNP) STAT 03/03/2025 5:06 PM CDT PROTIME (PT) (PROTHROMBIN TIME) STAT 03/03/2025 5:06 PM CDT LIPASE STAT 03/03/2025 5:06 PM CDT MAGNESIUM (MG) STAT 03/03/2025 5:06 PM CDT CMP (COMPREHENSIVE METABOLIC PANEL) STAT 03/03/2025 5:06 PM CDT COMPLETE BLOOD COUNT (CBC) WITH DIFF STAT 03/03/2025 5:06 PM CDT URINALYSIS REFLEX IF INDICATED BY ABNORMAL RESULTS STAT 03/03/2025 4:51 PM CDT XR SHOULDER COMPLETE LEFT Routine 2024 10:14 AM CDT Left shoulder pain, unspecified chronicity COMPLETE PFT W + W/O BRONCHODILATOR Routine 01/24/2025 9:43 AM CDT Personal history of tobacco use, presenting hazards to health NM GASTRIC EMPTYING STUDY Routine 2024 12:03 PM CDT Retained food in stomach GA ESOPHAGOGASTRODUODENOSCOP Y TRANSORAL DIAGNOSTIC 12/30/2024 8:43 AM CDT EGD--RETAINED FOOD, NO ULCERS Special Needs Dx: Ulcer of the Esophagus Hx: COPD GA EGD FLEXIBLE TRANSNASAL D X W/COLLJ SPEC BR/WA 12/30/2024 8:43 AM CDT EGD--RETAINED FOOD, NO ULCERS Special Needs Dx: Ulcer of the Esophagus Hx: COPD GI LAB IMAGING - EGD Routine 12/30/2024 7:26 AM CDT BETTIE DIAG BILATERAL W IMPLANT S DIGITAL W CAD W LEONEL Routine 06/10/2024 10:39 AM CDT Mastodynia HM COLONOSCOPY Routine 05/28/2014 from Last 3 Months or Most Recently Relevant to Health Maintenance Results * XR LUMBAR SPINE MINIMUM 4 VIEWS (03/04/2025 10:18 AM CDT) Anatomical Region Laterality Modality Spine, L-spine N/A Digital Radiogra phy 03/05/2025 2:49 PM CDT Impressions 03/05/2025 2:52 PM CDT IMPRESSION: 1. No acute compression fracture in the lumbar spine. 2. The L4-L5 anterior interbody fusion is new when compared to the lumbar spine radiographs dated 03/30/2017. 3. Mild worsening non operative level degenerative changes in the interval. Narrative 03/05/2025 2:52 PM CDT EXAM DESCRIPTION: XR LUMBAR SPINE MINIMUM 4 VIEWS REASON FOR STUDY: midline low back pain with radiation, numbness and tingling into feet x 2 years- pain worse since fall down steps 1 month ago- Hx lumbar fusion TECHNIQUE: Frontal, lateral, bilateral oblique and cone-down radiographic view(s) of the lumbar spine. COMPARISON: CT abdomen and pelvis dated 03/03/2025, lumbar spine radiographs dated 03/30/2017 and lumbar spine MRI dated 02/22/2017. FINDINGS: To maintain continuity with the nomenclature used on lumbar spine radiographs dated 04/09/2015 assumption is made for the last well-formed disc space to be labeled L5-S1. In this system of nomenclature rudimentary 12th ribs. Dextroconvex lumbar curvature. Osseous structures are diffusely demineralized. Lumbar vertebral body heights are maintained. The L4-L5 anterior interbody fusion device is new when compared to the lumbar spine radiographs dated 03/30/2017. Unfused level wclx-zy-mwchzvga degenerative changes have slightly worsened in the interval. Moderate to large amount of stool projects over the imaged abdomen and pelvis. Surgical clips project over the right upper abdomen. There are pelvic phleboliths. Portions of the sacrum and coccyx are obscured by overlapping bowel. THIS IS AN ELECTRONICALLY VERIFIED FINAL REPORT 03/05/2025 2:49 PM - Electronically signed by Chidi Lindo D.O. AP: AP Report ID: [id number] Reading Location: [id number] Procedure Note Chidi Lindo DO - 03/05/2025 EXAM DESCRIPTION: XR LUMBAR SPINE MINIMUM 4 VIEWS REASON FOR STUDY: midline low back pain with radiation, numbness and tingling into feet x 2 years- pain worse since fall down steps 1 month ago- Hx lumbar fusion TECHNIQUE: Frontal, lateral, bilateral oblique and cone-down radiographic view(s) of the lumbar spine. COMPARISON: CT abdomen and pelvis dated 03/03/2025, lumbar spine radiographs dated 03/30/2017 and lumbar spine MRI dated 02/22/2017. FINDINGS: To maintain continuity with the nomenclature used on lumbar spine radiographs dated 04/09/2015 assumption is made for the last well-formed disc space to be labeled L5-S1. In this system of nomenclature rudimentary 12th ribs. Dextroconvex lumbar curvature. Osseous structures are diffusely demineralized. Lumbar vertebral body heights are maintained. The L4-L5 anterior interbody fusion device is new when compared to the lumbar spine radiographs dated 03/30/2017. Unfused level phzm-id-uwirzazh degenerative changes have slightly worsened in the interval. Moderate to large amount of stool projects over the imaged abdomen and pelvis. Surgical clips project over the right upper abdomen. There are pelvic phleboliths. Portions of the sacrum and coccyx are obscured by overlapping bowel. THIS IS AN ELECTRONICALLY VERIFIED FINAL REPORT 03/05/2025 2:49 PM - Electronically signed by Chidi Lindo D.O. AP: AP Report ID: [id number] Reading Location: [id number] IMPRESSION: 1. No acute compression fracture in the lumbar spine. 2. The L4-L5 anterior interbody fusion is new when compared to the lumbar spine radiographs dated 03/30/2017. 3. Mild worsening non operative level degenerative changes in the interval. January N Kristi CONSTRUCTION INSPECTOR, ETIOLOGY TEACHER IMG DIAGNOSTIC ORDERABLES Final Result * XR SHOULDER COMPLETE RIGHT (03/04/2025 10:14 AM CDT) Anatomical Region Laterality Modality UPPER EXTREMITY, shoulder Right Digita l Radiography 03/05/2025 6:57 PM CDT Impressions 03/05/2025 6:59 PM CDT IMPRESSION: Status post total right shoulder arthroplasty. No acute fracture or hardware complication. Narrative 03/05/2025 6:59 PM CDT EXAM DESCRIPTION: XR SHOULDER COMPLETE RIGHT REASON FOR STUDY: fall down steps 1 month with increased right shoulder pain since with limited range of motion and uable to raise arm-HX shoulder replacement and torn rotator cuff TECHNIQUE: 4. view(s) of the right shoulder COMPARISON: None available at the time of this report FINDINGS: Status post total right shoulder arthroplasty. No prior for comparison. However, no hardware complication is seen. No acute fracture. THIS IS AN ELECTRONICALLY VERIFIED FINAL REPORT 03/05/2025 6:57 PM - Electronically signed by Vannesa Villagran M.D. FT: FT Report ID: [id number] Reading Location: [id number] Procedure Note Vannesa Elder MD - 03/05/2025 EXAM DESCRIPTION: XR SHOULDER COMPLETE RIGHT REASON FOR STUDY: fall down steps 1 month with increased right shoulder pain since with limited range of motion and uable to raise arm-HX shoulder replacement and torn rotator cuff TECHNIQUE: 4. view(s) of the right shoulder COMPARISON: None available at the time of this report FINDINGS: Status post total right shoulder arthroplasty. No prior for comparison. However, no hardware complication is seen. No acute fracture. THIS IS AN ELECTRONICALLY VERIFIED FINAL REPORT 03/05/2025 6:57 PM - Electronically signed by Vannesa Villagran M.D. FT: FT Report ID: [id number] Reading Location: [id number] IMPRESSION: Status post total right shoulder arthroplasty. No acute fracture or hardware complication. January Oehl CONSTRUCTION INSPECTOR, ETIOLOGY TEACHER IMG DIAGNOSTIC ORDERABLES Final Result * CT ABDOMEN PELVIS W/ CONTRAST (03/03/2025 6:21 PM CDT) Anatomical Region Laterality Modality Abdomen N/A Computed Tomogra phy 03/03/2025 7:11 PM CDT Impressions 03/03/2025 7:14 PM CDT IMPRESSION: A few mildly thick-walled small bowel loops which could reflect inflammatory or infectious enteritis. Dilatation of the common bile duct, likely due to post cholecystectomy status but greater than on previous CT from 2021. This could be correlated with laboratory analysis and clinical symptoms. Additional findings as above. Narrative 03/03/2025 7:14 PM CDT EXAM DESCRIPTION: CT ABDOMEN PELVIS W/ CONTRAST REASON FOR STUDY: lower abdomen pain, urinary frequency and urgency for several weeks. TECHNIQUE: CT scan of the abdomen and pelvis performed with intravenous and without oral contrast using helical scanning technique with dynamic intravenous contrast injection. Reconstructed coronal and sagittal MPR images reviewed. All images stored on PACS. Automated exposure control was used as a dose optimization technique for this examination. CONTRAST TYPE/DOSE: 60mL of IOPAMIDOL 76 % IV SOLN injected via Intravenous COMPARISON: CT abdomen and pelvis 09/26/2022 FINDINGS: LOWER CHEST: Partially visualized bilateral breast implants. Pulmonary emphysema in the lung bases. LIVER: Normal. GALLBLADDER: Absent. There is dilatation of the common bile duct to 10 mm, likely due to post cholecystectomy status but greater than on previous CT from 2021. SPLEEN: Normal. PANCREAS: Normal. ADRENALS: Normal. KIDNEYS/URINARY TRACT: No hydronephrosis. Water density bilateral renal lesions which likely represent renal cysts. GI: No bowel obstruction. A few mildly thick-walled small bowel loops. PERITONEUM: No free intraperitoneal air or free fluid. REPRODUCTIVE: Previous hysterectomy. VASCULATURE: No abdominal aortic aneurysm. Vascular calcifications. MUSCULOSKELETAL: Postsurgical changes at L4-L5. No acute findings. OTHER: No other abnormality. THIS IS AN ELECTRONICALLY VERIFIED FINAL REPORT 03/03/2025 7:11 PM - Electronically signed by Keyon Billings M.D. JR: Report ID: [id number] Reading Location: [id number] Procedure Note Keyon Billings MD - 03/03/2025 EXAM DESCRIPTION: CT ABDOMEN PELVIS W/ CONTRAST REASON FOR STUDY: lower abdomen pain, urinary frequency and urgency for several weeks. TECHNIQUE: CT scan of the abdomen and pelvis performed with intravenous and without oral contrast using helical scanning technique with dynamic intravenous contrast injection. Reconstructed coronal and sagittal MPR images reviewed. All images stored on PACS. Automated exposure control was used as a dose optimization technique for this examination. CONTRAST TYPE/DOSE: 60mL of IOPAMIDOL 76 % IV SOLN injected via Intravenous COMPARISON: CT abdomen and pelvis 09/26/2022 FINDINGS: LOWER CHEST: Partially visualized bilateral breast implants. Pulmonary emphysema in the lung bases. LIVER: Normal. GALLBLADDER: Absent. There is dilatation of the common bile duct to 10 mm, likely due to post cholecystectomy status but greater than on previous CT from 2021. SPLEEN: Normal. PANCREAS: Normal. ADRENALS: Normal. KIDNEYS/URINARY TRACT: No hydronephrosis. Water density bilateral renal lesions which likely represent renal cysts. GI: No bowel obstruction. A few mildly thick-walled small bowel loops. PERITONEUM: No free intraperitoneal air or free fluid. REPRODUCTIVE: Previous hysterectomy. VASCULATURE: No abdominal aortic aneurysm. Vascular calcifications. MUSCULOSKELETAL: Postsurgical changes at L4-L5. No acute findings. OTHER: No other abnormality. THIS IS AN ELECTRONICALLY VERIFIED FINAL REPORT 03/03/2025 7:11 PM - Electronically signed by Keyon Billings M.D. JR: Report ID: [id number] Reading Location: [id number] IMPRESSION: A few mildly thick-walled small bowel loops which could reflect inflammatory or infectious enteritis. Dilatation of the common bile duct, likely due to post cholecystectomy status but greater than on previous CT from 2021. This could be correlated with laboratory analysis and clinical symptoms. Additional findings as above. us Olman Castle MD [facility] CT ORDERABLES Final R esult * (ABNORMAL) CBC with Auto Differential (03/03/2025 5:06 PM CDT) WBC 7.81 4.00 - 12.00 10(3)/mcL 03/03/2025 5:48 PM [address] [facility] RBC 4.05 3.80 - 5.30 10(6)/mcL 03/03/2025 5:[address] [facility] HEMOGLOBIN (HGB) 12.9 12.0 - 15.8 g/dL 03/03/2025 5:[address] [facility] HEMATOCRIT (HCT) 39.2 36.0 - 47.0 % 03/03/2025 5:48 PM CDT [facility] MCV 96.8(H) 82.0 - 96.0 fL 03/03/2025 5:48 PM CDT [facility] MCH 31.9 26.0 - 34.0 pg 03/03/2025 5:48 PM CDT [facility] MCHC 32.9 31.0 - 36.0 g/dL 03/03/2025 5:48 PM CDT [facility] PLATELET COUNT 179 140 - 440 10(3)/mcL 03/03/2025 5:48 PM CDT [facility] RDW 12.6 11.8 - 15.5 % 03/03/2025 5:48 PM CDT [facility] MPV 10.4 9.7 - 12.4 fL 03/03/2025 5:48 PM CDT [facility] NEUTROPHILS 43.3(L) 47.0 - 73.0 % 03/03/2025 5:48 PM CDT [facility] LYMPHOCYTES 44.3(H) 18.0 - 42.0 % 03/03/2025 5:48 PM CDT [facility] MONOCYTES 9.1 4.0 - 12.0 % 03/03/2025 5:48 PM CDT [facility] EOSINOPHILS 2.3 0.0 - 5.0 % 03/03/2025 5:48 PM CDT [facility] BASOPHILS 1.0 0.0 - 1.0 % 03/03/2025 5:48 PM CDT [facility] ABSOLUTE NEUTROPHILS 3.38 1.60 - 7.70 10(3)/mcL 03/03/2025 5:48 PM CDT [facility] ABSOLUTE LYMPHOCYTES 3.46(H) 1.30 - 3.20 10(3)/mcL 03/03/2025 5:48 PM CDT [facility] ABSOLUTE MONOCYTES 0.71 0.20 - 1.00 10(3)/mcL 03/03/2025 5:48 PM CDT [facility] ABSOLUTE EOSINOPHIL 0.18 0.00 - 0.40 10(3)/mcL 03/03/2025 5:48 PM CDT [facility] ABSOLUTE BASOPHILS 0.08 0.00 - 0.10 10(3)/mcL 03/03/2025 5:48 PM CDT [facility] NRBC PER 100 WBC 0 03/03/20 25 5:48 PM CDT [facility] Blood Venipuncture / Unknown 03/03/2025 5:06 PM CDT 03/03/2025 5:45 PM CDT us Olman Castle MD HEMATOLOGY ORDERABLES Fin al Result Performing Organization Address [facility] Co de Phone Number [facility] [address] [place] [address] * (ABNORMAL) PT / INR (03/03/2025 5:06 PM CDT) PROTIME-PATIENT 15.3(H) 11.6 - 14.8 sec 03/03/2025 6:01 PM CDT [facility] INR 1.2 0.9 - 1.2 03/03/2025 6:01 PM CDT [facility] Comment: Therapeutic Ranges INR = 2.0-3.0: Venous thromb, atrial fib, pul embolism, tissue heart valve, ami. INR = 2.5-3.5: Mechanical heart valve Critical value for INR is >/= 4.5 Blood Venipuncture / Unknown 03/03/2025 5:06 PM CDT 03/03/2025 5:45 PM CDT us Olman Castle MD HEMATOLOGY ORDERABLES Fin al Result Performing Organization Address City/[facility] Co de Phone Number [facility] [address] [place] [address] * Magnesium (03/03/2025 5:06 PM CDT) Pathologist [facility] MAGNESIUM 2.1 1.6 - 2.6 mg/dL 03/03/2025 6:07 PM CDT [facility] Blood Venipuncture / Unknown 03/03/2025 5:06 PM CDT 03/03/2025 5:45 PM CDT us Olman Castle MD CHEMISTRY ORDERABLES Lanie l Result [facility] [address] [place] [address] * Lipase (03/03/2025 5:06 PM CDT) LIPASE 25 8 - 78 U/L 03/03/2025 6:07 PM CDT [facility] Blood Venipuncture / Unknown 03/03/2025 5:06 PM CDT 03/03/2025 5:45 PM CDT us Olman Castle MD CHEMISTRY ORDERABLES Lanie l Result Performing Organization Address City/[facility]/ZIP Co de Phone Number [facility] [address] [place] [address] * CK - Total (03/03/2025 5:06 PM CDT) CK (CPK) 93 29 - 168 U/L 03/03/2025 6:07 PM CDT [facility] Blood Venipuncture / Unknown 03/03/2025 5:06 PM CDT 03/03/2025 5:45 PM CDT us Olman Castle MD HEMATOLOGY ORDERABLES Fin al Result [facility] [address] [place] [address] * (ABNORMAL) CMP (03/03/2025 5:06 PM CDT) SODIUM 135(L) 136 - 145 mmol/L 03/03/2025 6:07 PM T [facility] POTASSIUM 4.0 3.5 - 5.1 mmol/L 03/03/2025 6:07 PM [facility] CHLORIDE 113(H) 98 - 107 mmol/L 03/03/2025 6:07 PM [facility] CO2, VENOUS 20(L) 22 - 30 mmol/L 03/03/2025 6:07 PM T [facility] ANION GAP 6.0 <18.0 mmol/L 03/03/2025 6:07 PM [facility] GLUCOSE 105(H) 70 - 99 mg/dL 03/03/2025 6:07 PM T [facility] BUN 19 10 - 20 mg/dL 03/03/2025 6:07 PM [facility] CREATININE, BLOOD 0.87 0.60 - 1.00 mg/dL 03/03/2025 6:07 PM T [facility] BUN/CREATININE RATIO 22(H) 12 - 20 ratio 03/03/2025 6:07 PM [facility] TOTAL PROTEIN 6.9 6.0 - 8.0 g/dL 03/03/2025 6:07 PM [facility] ALBUMIN 4.1 3.5 - 5.0 g/dL 03/03/2025 6:07 PM [facility] A/G RATIO 1.5 1.0 - 2.2 03/03/2025 6:07 PM T [facility] CALCIUM 8.9 8.7 - 10.5 mg/dL 03/03/2025 6:07 PM T [facility] T BILI 0.2 0.2 - 1.2 mg/dL 03/03/2025 6:07 PM T [facility] SGOT (AST) 23 <43 U/L 03/03/2025 6:07 PM T [facility] SGPT (ALT) 26 <56 U/L 03/03/2025 6:07 PM CDT [facility] ALKALINE PHOSPHATASE 47 40 - 150 U/L 03/03/2025 6:07 PM CDT [facility] GFR, ESTIMATED >60 >=60 03/03/2025 6:07 PM CDT [facility] Comment: Creatinine Clearance is the preferred criteria for selecting drug dose adjustments in renally impaired patients. The GFR is provided as additional pertinent clinical information. GFR is reported in mL/min/1.73 sq m. Calculation based on the Chronic Kidney Disease Epidemiology Collaboration (CKD- EPI) equation refit without adjustment for race. GFR, EST. >60 >=60 025 6:07 PM CDT [facility] GFR, EST. NONAFRICAN >60 >=60 03/03/2025 6:07 PM CDT [facility] Blood Venipuncture / Unknown 03/03/2025 5:06 PM CDT 03/03/2025 5:45 PM CDT us Olman Castle MD CHEMISTRY ORDERABLES Lanie l Result [facility] [address] [place] [address] * B-Type Natriuretic Peptide (BNP) (03/03/2025 5:06 PM CDT) B TYPE NATRIURETIC PEPTIDE 96 <100 pg/mL 03/03/2025 6:39 PM CDT [facility] Blood Venipuncture / Unknown 03/03/2025 5:06 PM CDT 03/03/2025 5:45 PM CDT us Olman Castle MD CHEMISTRY ORDERABLES Lanie l Result Performing Organization Address City/[facility]/ZIP Co de Phone Number [facility] [address] [place] [address] * (ABNORMAL) Urinalysis w/ Reflex (03/03/2025 4:51 PM CDT) SPECIFIC GRAVITY 1.010 1.003 - 1.030 03/03/2025 5:36 PM CDT [facility] URINE PH 7.0 5.0 - 9.0 03/03/2025 5:36 PM CDT [facility] WBC ESTERASE Negative Negative 03/03/2025 5:36 PM CDT [facility] NITRITE Negative Negative 03/03/2025 5:36 PM CDT [facility] PROTEIN, RANDOM URINE 15 mg/dL(A) Negative 03/03/2025 5:36 PM CDT [facility] URINE GLUCOSE, QUAL Negative Negative 03/03/2025 5:36 PM CDT [facility] URINE KETONES Negative Negative 03/03/2025 5:36 PM CDT [facility] UROBILINOGEN Normal Normal mg/dL 03/03/2025 5:36 PM CDT [facility] URINE BLOOD 25 /uL(A) Negative abdias/ul 03/03/2025 5:36 PM CDT [facility] URINALYSIS COLOR Yellow 03/03/20 5:36 PM CDT [facility] URINALYSIS CLARITY Clear 03/03/2025 5:36 PM CDT [facility] WBC (Urine) Negative Negative, 0-5 /hpf 03/03/2025 5:36 PM CDT [facility] URINE RBC'S 0-2 Negative, 0-2 /hpf 03/03/2025 5:36 PM CDT [facility] EPITHELIAL CELLS Small amount /lpf 2024 5:36 PM CDT [facility] BACTERIA, URINE Negative Negative /hpf 03/03/2025 5:36 PM CDT [facility] Urine URINE SPECIMEN / Unknown Non-Phlebotomy Collection / Unknown 03/03/2025 4:51 PM CDT 03/03/2025 5:06 PM CDT us Olman Castle MD URINE ORDERABLES Final Re sult [facility] [address] [place] [address] * XR SHOULDER COMPLETE LEFT (02/27/2025 10:14 AM CDT) Anatomical Region Laterality Modality UPPER EXTREMITY, shoulder Left Digita l Radiography 03/03/2025 4:04 PM CDT Impressions 03/03/2025 4:07 PM CDT IMPRESSION: No acute osseous abnormality. Narrative 03/03/2025 4:07 PM CDT EXAM DESCRIPTION: XR SHOULDER COMPLETE LEFT REASON FOR STUDY: pain in left shoulder after fall down steps x1 month. pt states pain radiates into left hand. limited ROM, mild numbness/tingling in left arm. Pt states left rotator cuff repair x 3 years ago. TECHNIQUE: 4 view(s) of the left shoulder COMPARISON: None FINDINGS: There is no fracture or dislocation appreciated. Glenohumeral relationship is normal. No significant degenerative change. Visualized portions of the left hemithorax are unremarkable. THIS IS AN ELECTRONICALLY VERIFIED FINAL REPORT 03/03/2025 4:04 PM - Electronically signed by Deric Cordero M.D. AM: AM Report ID: [id number] Reading Location: [id number] Procedure Note Deric Cordero MD - 03/03/2025 EXAM DESCRIPTION: XR SHOULDER COMPLETE LEFT REASON FOR STUDY: pain in left shoulder after fall down steps x1 month. pt states pain radiates into left hand. limited ROM, mild numbness/tingling in left arm. Pt states left rotator cuff repair x 3 years ago. TECHNIQUE: 4 view(s) of the left shoulder COMPARISON: None FINDINGS: There is no fracture or dislocation appreciated. Glenohumeral relationship is normal. No significant degenerative change. Visualized portions of the left hemithorax are unremarkable. THIS IS AN ELECTRONICALLY VERIFIED FINAL REPORT 03/03/2025 4:04 PM - Electronically signed by Deric Cordero M.D. AM: AM Report ID: [id number] Reading Location: [id number] IMPRESSION: No acute osseous abnormality. us Theodora N Oehl CONSTRUCTION INSPECTOR, ETIOLOGY TEACHER IMG DIAGNOSTIC ORDERABLES Final Result * NM GASTRIC EMPTYING STUDY (01/20/2025 12:03 PM CDT) Anatomical Region Laterality Modality GI, Abdomen N/A Nuclear Medicine 01/20/2025 2:11 PM CDT Impressions 01/20/2025 2:14 PM CDT IMPRESSION: Normal gastric emptying. Narrative 01/20/2025 2:14 PM CDT EXAM DESCRIPTION: AR GASTRIC EMPTYING STUDY RADIOPHARMACEUTICAL: 0.5 mCi Tc-99m sulfur colloid incorporated into eggs p.o. REASON FOR STUDY: Retained food in stomach, gastric motility disorder TECHNIQUE: After oral ingestion of the radiolabeled meal, sequential anterior and posterior abdominal images were obtained. COMPARISON: None FINDINGS: At 60 minutes, the residual activity is 100% (normal: 30-90%). At 120 minutes, the residual activity is 27% (normal: less than 60%). At 180 minutes, the residual activity is 7% (normal: less than 30%). THIS IS AN ELECTRONICALLY VERIFIED FINAL REPORT 01/20/2025 2:11 PM - Electronically signed by Vannesa Villagran M.D. FT: FT Report ID: [id number] Reading Location: [id number] Procedure Note Vannesa Elder MD - 01/20/2025 EXAM DESCRIPTION: NM GASTRIC EMPTYING STUDY RADIOPHARMACEUTICAL: 0.5 mCi Tc-99m sulfur colloid incorporated into eggs p.o. REASON FOR STUDY: Retained food in stomach, gastric motility disorder TECHNIQUE: After oral ingestion of the radiolabeled meal, sequential anterior and posterior abdominal images were obtained. COMPARISON: None FINDINGS: At 60 minutes, the residual activity is 100% (normal: 30-90%). At 120 minutes, the residual activity is 27% (normal: less than 60%). At 180 minutes, the residual activity is 7% (normal: less than 30%). THIS IS AN ELECTRONICALLY VERIFIED FINAL REPORT 01/20/2025 2:11 PM - Electronically signed by Vannesa Villagran M.D. FT: FT Report ID: [id number] Reading Location: [id number] IMPRESSION: Normal gastric emptying. us Kwadwo COTTONG NM ORDERABLES Final R esult * GI LAB IMAGING - EGD (12/30/2024 7:26 AM CDT) Kwadwo LANG DIAGNOSTIC ORDERABLES Final Result * BETTIE DIAG BILATERAL W IMPLANTS DIGITAL W CAD W LEONEL (06/10/2024 10:39 AM CDT) Anatomical Region Laterality Modality breast Bilateral Mammography 06/10/2024 9:36 AM CDT Narrative 06/10/2024 2:44 PM CDT - BETTIE DIAG BILATERAL W IMPLANTS DIGITAL [...] to exams dated: 11/23/2022, 07/28/2021, and 06/10/2020 [facility]. BREAST TISSUE:The tissue of both breasts is [...] signed by: Natanael Galindo M.D. ll/:06/10/2024 14:01:51 Gaming Cashier(s): Jocelynn Gilbert RDMS OBCIARA, [facility]; RT Casey(R)(M), [facility] letter sent: Normal Exam Reading location: [facility] OVERALL STUDY BIRADS: 2 Benign Procedure [...] to exams dated: 11/23/2022, 07/28/2021, and 06/10/2020 [facility]. BREAST TISSUE:The tissue of both breasts is [...] signed by: Natanael Galindo M.D. ll/:06/10/2024 14:01:51 Gaming Cashier(s): Jocelynn Gilbert, JORGE OBGYN, [facility]; Susan Fox, (R)(M), [facility] letter sent: Normal Exam Reading location: [facility] OVERALL STUDY BIRADS: 2 Benign us Silva Vicente MD IMG MAMMO ORDERABLES Final Resul t * HM COLONOSCOPY (05/28/2014) us Franklin Martin Lynn DO PROCEDURE/MINOR SURGICAL ORDERA BLES Final Result from Last 3 Months or Most Recently Relevant to Health [place] [address] MEDICARE C [employer] Advance Directives * No [...] measures to stabilize the patient. Care Teams Forklift Operator Relationship Specialty Start Date End Date Kristi Theodora Van, CESAR, ETIOLOGY TEACHER [address] [address] PCP - General Advanced Practice Nurse 01/21/25 Mac Sher MD [address] [place] [address] Consulting Physician Neurology 09/15/15 Robert Mae MD [address] [place] [address] Consulting Physician Pulmonary Disease 10/27/22 Maryann El APRN, GRAPE CRUSHER [address] [place] [address] Nurse Practitioner Advanced Practice Nurse 12/21/22 Germania Navarro APRN, ETIOLOGY TEACHER [address] [place] [address] Nurse Practitioner Advanced Practice Nurse 10/04/23 Leny Morales MD [address] [place] [address] Consulting Physician Gastroenterology 01/19/23
--- OUTSIDE RECORDS SUMMARY | 2025-03-26 09:13 | XMS_ITS | Encounter Summary ---
Author Organization [facility] Address [address] [place] [address] Phone Care Team Providers Care Repossession Agent Name Role Phone Mac Sher MD Unavailable Winifred Armstrong GANG RIDER, DELIMER Primary Care Provider Micky Dickson MD Primary Care Provider Robert Mae MD Unavailable Maryann El APRN, [facility] Unavailable + [phone] Germania Navarro APRN, DELIMER Unavailable Leny Morales MD Unavailable [phone] Silva Vicente MD Primary Care Provider [phone] Manisha Galeas MD Primary Care Provider [phone] Theodora Berry GANG RIDER, DELIMER Primary Care Provider [phone] Reason for Visit * Reason Comments Medication Refill Encounter Details Date Type Department Care Team (Late st Contact Info) Description 09/08/2022 Refill [facility] [place] [address] [place] [address] Joann Bowers Juana, PAC [address] [place] [address] Medication Refill Social History Tobacco Use Types [...] Coronavirus/COVID-19? No / Unsure 09/02/2022 9:40 AM VASCULAR NURSE documented as of this encounter Miscellaneous Notes [...] appointment for 09/30/22. Refill pended, please review. ULAR NURSE ULAR NURSE documented in this encounter Plan of Treatment Upcoming Encounters Date Type Department Care Team (Late st Contact Info) Description 04/02/2025 10:30 AM CDT Office Visit [facility] [address] [place] [address] Sundar Tristan MD [address] [address] 04/03/2025 10:00 AM CDT Office Visit [facility] - [facility]ology - [place] [address] [facility] [place] [address] Feliberto Winston MD 2 [facility] [address] [place] [address] 04/03/2025 11:00 AM CDT [facility] [place] [address] [facility] [place] [address] Maryann El, GANG RIDER, VENETIAN BLIND MAKER [address] [place] [address] 04/22/2025 10:30 AM CDT Office Visit [facility] - Family Medicine - [place] [address] [place] [address] Theodora Berry, GANG RIDER, DELIMER 2 [facility]. [address] [place] [address] documented as of this encounter Visit Diagnoses Not on filedocumented in this encounter Additional Health Concerns Infection Onset Date Last Indicated Resolved Time COVID - 19 09/03/2024 09/03/2024 09/03/2024 9:25 PM VASCULAR NURSE documented as of this encounter Care Teams Repossession Agent Relationship Specialty Start Date End Date Winifred Armstrong, GANG RIDER, DELIMER [address] [place] [address] PCP - General Advanced Practice Nurse 10/17/19 Micky Dickson MD [address] [place] [address] [facility] [address] [place] [address] PCP - General Family Medicine 09/25/23 07/04/24 Silva Vicente MD 4 [facility] [address] [place] [address] PCP - General Family Medicine 07/05/24 12/29/24 Manisha Galeas MD 4 [facility] [place] [address] [place] [address] PCP - General Family Medicine 12/30/24 01/20/25 Theodora Berry APRN, DELIMER 2 [facility] [address] [place] [address] PCP - General Advanced Practice Nurse 01/21/25 Mac Sher MD [address] [place] [address] Consulting Physician Neurology 09/15/15 Robert Mae MD [address] [place] [address] Consulting Physician Pulmonary Disease 10/27/22 Maryann El APRN, VENETIAN BLIND MAKER [address] [place] [address] Nurse Practitioner Advanced Practice Nurse 12/21/22 Germania Navarro APRN, DELIMER [address] [place] [address] Nurse Practitioner Advanced Practice Nurse 10/04/23 Leny Morales MD [address] [place] [address] Consulting Physician Gastroenterology 01/19/23 documented as of this encounter
--- OUTSIDE RECORDS SUMMARY | 2025-03-26 09:13 | XMS_ITS | Encounter Summary ---
Author Organization [facility] Address [address] [place] [address] Phone Care Team Providers Care Battery Charger Tester Name Role Phone Mac Sher MD Unavailable Winifred Armstrong LASER TECHNICIAN, MATTRESS WEAVER Primary Care Provider Micky Dickson MD Primary Care Provider [phone] Robert Mae MD Unavailable Maryann El APRN, [facility] Unavailable + [phone] Germania Navarro APRN, MATTRESS WEAVER Unavailable Leny Morales MD Unavailable [phone] Silva Vicente MD Primary Care Provider [phone] Manisha Galeas MD Primary Care Provider [phone] Theodora Berry LASER TECHNICIAN, MATTRESS WEAVER Primary Care Provider [phone] Reason for Visit * Reason Comments Medication Refill Encounter Details Date Type Department Care Team (Late st Contact Info) Description 10/25/2021 Refill [facility] - Neurology [facility] #2 [place] [id number] Maryann El APRN, MACHINE PACKAGING TECHNICIAN #2 [place] [address] Medication Refill Social History Tobacco Use Types [...] COVID-19? No / Unsure 10/07/2021 5:20 AM COMPONENT TECHNICIAN documented as of this encounter Plan of Treatment Upcoming Encounters Date Type Department Care Team (Late st Contact Info) Description 04/02/2025 10:30 AM CDT Office Visit [facility] #2 [place] [address] Sundar Tristan MD #2 [facility] [address] [place] [address] 04/03/2025 10:00 AM CDT Office Visit [facility] Group - Gastroenterology - [place] #2 [place] [address] Feliberto Winston MD 2 [facility] [address] [place] [address] 04/03/2025 11:00 AM CDT [facility] - [place] #2 [place] [address] Maryann El APRN, MACHINE PACKAGING TECHNICIAN #2 [facility] [place] [address] 04/22/2025 10:30 AM CDT Office Visit [facility] - Family [facility] #[address] [place] [address] Theodora Berry, CESAR, MATTRESS WEAVER [address] [address] documented as of this encounter Visit Diagnoses Diagnosis Intractable chronic migraine without aura and with status migrainosus Chronic migraine without aura, with intractable migraine, so stated, with status migrainosus Essential tremor Essential and other specified forms of tremor documented in this encounter Additional Health Concerns Infection Onset Date Last Indicated Resolved Time COVID - 19 09/03/2024 09/03/2024 09/03/2024 9:25 PM COMPONENT TECHNICIAN documented as of this encounter Care Teams Battery Charger Tester Relationship Specialty Start Date End Date Winifred Armstrong APRN, MATTRESS WEAVER [address] [place] [address] PCP - General Advanced Practice Nurse 10/17/19 Micky Dickson MD [address] [place] [address] [address] [place] [address] PCP - General Family Medicine 09/25/23 07/04/24 Silva Vicente MD [address] [place] [address] [address] [place] [address] PCP - General Family Medicine 07/05/24 12/29/24 Manisha Galeas MD [address] [place] [address] [address] [place] [address] PCP - General Family Medicine 12/30/24 01/20/25 Theodora Berry, LASER TECHNICIAN, MATTRESS WEAVER 2 [facility] [address] [address] PCP - General Advanced Practice Nurse 01/21/25 Mac Sher MD #2 [place] [address] Consulting Physician Neurology 09/15/15 Robert Mae MD #2 [place] [address] Consulting Physician Pulmonary Disease 10/27/22 Maryann El APRN, MACHINE PACKAGING TECHNICIAN #2 [place] [address] Nurse Practitioner Advanced Practice Nurse 12/21/22 Germania Navarro APRN, MATTRESS WEAVER #2 [place] [address] Nurse Practitioner Advanced Practice Nurse 10/04/23 Leny Morales MD #2 [place] [address] Consulting Physician Gastroenterology 01/19/23 documented as of this encounter
--- OUTSIDE RECORDS SUMMARY | 2025-03-26 09:13 | XMS_ITS | Encounter Summary ---
Author Organization [facility] Address [address] [place] [address] Phone Care Team Providers Care Public Affairs Specialist Name Role Phone Mac Sher MD Unavailable Winifred Armstrong DENTAL TECH, DELIVERY MGR Primary Care Provider Micky Dickson MD Primary Care Provider [phone] Robert Mae MD Unavailable Maryann El APRN, [facility] Unavailable + [phone] Germania Navarro APRN, DELIVERY MGR Unavailable Leny Morales MD Unavailable [phone] Silva Vicente MD Primary Care Provider [phone] Manisha Galeas MD Primary Care Provider [phone] Theodora Berry DENTAL TECH, DELIVERY MGR Primary Care Provider [phone] Reason for Visit * Reason Comments Medication Refill Encounter Details Date Type Department Care Team (Late st Contact Info) Description 11/01/2022 Refill [facility] - Neurology [facility] #2 [place] [address] Mac Sher MD #2 [place] [address] Medication Refill Social History Tobacco Use Types [...] Coronavirus/COVID-19? No / Unsure 10/27/2022 10:41 AM BAND LINING BANDER documented as of this encounter Miscellaneous Notes * Telephone Encounter - Maryann El APRN, CNS - 11/01/2022 2:48 PM BAND LINING BANDER Maximum of 15 tabs per month LINING BANDER documented in this encounter Plan of Treatment Upcoming Encounters Date Type Department Care Team (Late st Contact Info) Description 04/02/2025 10:30 AM CDT Office Visit ON LICENSE OF [facility] #2 [place] [address] Sundar Tristan MD #[address] [address] 04/03/2025 10:00 AM CDT [facility]ology - [place] #2 [place] [address] Feliberto Winston MD 2 [facility] [address] [place] [address] 04/03/2025 11:00 AM CDT [facility] [place] [facility] [place] [address] Maryann El M, DENTAL TECH, HARMONICA MAKER #2 [place] [address] 04/22/2025 10:30 AM CDT Office Visit [facility] - Family Medicine - [place] #2 [place] [address] Theodora Berry, DENTAL TECH, DELIVERY MGR 2 [facility]. [address] [place] [address] documented as of this encounter Visit Diagnoses Diagnosis Intractable chronic migraine without aura and with status migrainosus Chronic migraine without aura, with intractable migraine, so stated, with status migrainosus documented in this encounter Additional Health Concerns Infection Onset Date Last Indicated Resolved Time COVID - 19 09/03/2024 09/03/2024 09/03/2024 9:25 PM BAND LINING BANDER documented as of this encounter Care Teams Public Affairs Specialist Relationship Specialty Start Date End Date Winifred Armstrong, DENTAL TECH, DELIVERY MGR [address] [place] [address] PCP - General Advanced Practice Nurse 10/17/19 Micky Dickson MD [address] [place] [address] [address] [place] [address] PCP - General Family Medicine 09/25/23 07/04/24 Silva Vicente MD [address] [place] [address] [address] [place] [address] PCP - General Family Medicine 07/05/24 12/29/24 Manisha Galeas MD [address] [place] [address] [facility] [address] [place] [address] PCP - General Family Medicine 12/30/24 01/20/25 Theodora Berry, DENTAL TECH, DELIVERY MGR 2 [facility] [address] [place] [address] PCP - General Advanced Practice Nurse 01/21/25 Mac Sher MD #2 [place] [address] Consulting Physician Neurology 09/15/15 Robert Mae MD #[address] [place] [address] Consulting Physician Pulmonary Disease 10/27/22 Maryann El APRN, HARMONICA MAKER #[address] [place] [address] Nurse Practitioner Advanced Practice Nurse 12/21/22 Germania Navarro APRN, DELIVERY MGR #[address] [place] [address] Nurse Practitioner Advanced Practice Nurse 10/04/23 Leny Morales MD #[address] [place] [address] Consulting Physician Gastroenterology 01/19/23 documented as of this encounter
--- OUTSIDE RECORDS SUMMARY | 2025-03-26 09:13 | XMS_ITS | Encounter Summary ---
Author Organization [facility] Address [address] [place] [address] Phone Care Team Providers Care Band Director Name Role Phone Mac Sher MD Unavailable [phone] Micky Dickson MD Primary Care Provider [phone] Robert Mae MD Unavailable Maryann El APRN, [facility] Unavailable + [phone] Germania Navarro APRN, WAREHOUSE RECORD CLERK Unavailable Leny Morales MD Unavailable [phone] Silva Vicente MD Primary Care Provider [phone] Manisha Galeas MD Primary Care Provider [phone] Theodora Berry SHELL TRIM TOOL SETTER, WAREHOUSE RECORD CLERK Primary Care Provider [phone] Reason for Visit * Reason Comments Medication Refill Encounter Details Date Type Department Care Team (Late st Contact Info) Description 01/24/2024 Refill [facility] - [place] #2 [place] [address] Leny Morales MD #2 [place] [address] Medication Refill Social History Tobacco Use Types [...] PM CDT Medication [facility] and [facility] standing order for pediatric and adult patients. documented in this encounter Plan of Treatment Upcoming Encounters Date Type Department Care Team (Late st Contact Info) Description 04/02/2025 10:30 AM CDT Office Visit [facility] #2 [place] [address] Sundar Tristan MD #2 [facility] [address] [place] [address] 04/03/2025 10:00 AM CDT Office Visit [facility] Medical [facility] - Gastroenterology [facility] #2 [place] [address] Feliberto Winston MD 2 [facility] [address] [place] [address] 04/03/2025 11:00 AM CDT Office Visit [facility] - Neurology - [place] #2 [place] [address] Maryann El APRN, TRAVEL SPECIALIST #2 [place] [address] 04/22/2025 10:30 AM CDT Office Visit [facility] - Family [facility] - [place] #[address] [place] [address] Theodora Berry, CESAR, WAREHOUSE RECORD CLERK 2 [facility] [address] [place] [address] documented as of this encounter Visit Diagnoses Not on filedocumented in this encounter Additional Health Concerns Infection Onset Date Last Indicated Resolved Time COVID - 19 09/03/2024 09/03/2024 09/03/2024 9:25 PM FERMENTING CELLAR DROPPER documented as of this encounter Care Teams Band Director Relationship Specialty Start Date End Date Micky Dickson MD [address] [place] [address] [address] [place] [address] PCP - General Family Medicine 09/25/23 07/04/24 Silva Vicente MD [address] [place] [address] [place] [address] PCP - General Family Medicine 07/05/24 12/29/24 Manisha Galeas MD [address] [place] [address] [address] [place] [address] PCP - General Family Medicine 12/30/24 01/20/25 Theodora Berry, CESAR, WAREHOUSE RECORD CLERK 2 [address] [facility] [address] PCP - General Advanced Practice Nurse 01/21/25 Mac Sher MD #[address] [place] [address] Consulting Physician Neurology 09/15/15 Robert Mae MD #2 [place] [address] Consulting Physician Pulmonary Disease 10/27/22 Maryann El APRN, TRAVEL SPECIALIST #2 [place] [address] Nurse Practitioner Advanced Practice Nurse 12/21/22 Germania Navarro APRN, WAREHOUSE RECORD CLERK #2 [place] [address] Nurse Practitioner Advanced Practice Nurse 10/04/23 Leny Morales MD #2 [place] [address] Consulting Physician Gastroenterology 01/19/23 documented as of this encounter
--- OUTSIDE RECORDS SUMMARY | 2025-03-26 09:13 | XMS_ITS | Encounter Summary ---
Author Organization [facility] Address [address] [place] [address] Phone Care Team Providers Care Manager Cargo Name Role Phone Mac Sher MD Unavailable Winifred Armstrong MEDICAL DETAILIST, STRUCTURAL ARCHITECT Primary Care Provider Micky Dickson MD Primary Care Provider [phone] Robert Mae MD Unavailable Maryann El APRN, [facility] Unavailable + [phone] Germania Navarro APRN, STRUCTURAL ARCHITECT Unavailable Leny Morales MD Unavailable [phone] Silva Vicente MD Primary Care Provider [phone] Manisha Galeas MD Primary Care Provider [phone] Theodora Berry MEDICAL DETAILIST, STRUCTURAL ARCHITECT Primary Care Provider [phone] Reason for Visit * Reason Comments Medication Refill Encounter Details Date Type Department Care Team (Late st Contact Info) Description 05/31/2020 Refill [facility] - [facility] - [place] #1 [facility] [place] [place] [address] Mac Sher MD #2 [place] [address] Medication Refill Social History Tobacco Use Types [...] Description 04/02/2025 10:30 AM CDT Office Visit [facility] #2 [place] [address] Sundar Tristan MD #2 [facility] [address] [place] [address] 04/03/2025 10:00 AM CDT Office Visit [facility] Medical [facility] - Gastroenterology [facility] #2 [place] [address] Feliberto Winston MD 2 [facility] [address] [place] [address] 04/03/2025 11:00 AM CDT [facility] - [place] #2 [place] [address] Maryann El, MEDICAL DETAILIST, NEONATAL NURSE #2 [place] [address] 04/22/2025 10:30 AM CDT Office Visit [facility] - Family Medicine - [place] #2 [place] [address] Theodora Berry APRN, STRUCTURAL ARCHITECT 2 [facility] [address] [address] documented as of this encounter Visit Diagnoses Not on filedocumented in this encounter Additional Health Concerns Infection Onset Date Last Indicated Resolved Time COVID - 19 06/23/2021 06/23/2021 06/29/2021 9:24 PM CDT COVID - 19 09/03/2024 09/03/2024 09/03/2024 9:25 PM CANDY SPREADER documented as of this encounter Care Teams Manager Cargo Relationship Specialty Start Date End Date Winifred Armstrong APRN, STRUCTURAL ARCHITECT [address] [place] [address] PCP - General Advanced Practice Nurse 10/17/19 Micky Dickson MD [address] [facility] [address] [place] [address] PCP - General Family Medicine 09/25/23 07/04/24 Silva Vicente MD [address] [place] [address] [address] [place] [address] PCP - General Family Medicine 07/05/24 12/29/24 Manisha Galeas MD [address] [facility] [address] [place] [address] PCP - General Family Medicine 12/30/24 01/20/25 Theodora Berry, CESAR, STRUCTURAL ARCHITECT 2 [facility] [address] [facility] [address] [place] [address] PCP - General Advanced Practice Nurse 01/21/25 Mac Sher MD #2 [place] [address] Consulting Physician Neurology 09/15/15 Robert Mae MD #2 [place] [address] Consulting Physician Pulmonary Disease 10/27/22 Maryann El APRN, NEONATAL NURSE #2 [place] [address] Nurse Practitioner Advanced Practice Nurse 12/21/22 Germania Navarro APRN, STRUCTURAL ARCHITECT #2 [place] [address] Nurse Practitioner Advanced Practice Nurse 10/04/23 Leny Morales MD #2 [place] [address] Consulting Physician Gastroenterology 01/19/23 documented as of this encounter
--- OUTSIDE RECORDS SUMMARY | 2025-03-26 09:13 | XMS_ITS | Encounter Summary ---
Author Organization [facility] Address [address] [place] [address] Phone Care Team Providers Care Tractor Crane Operator Name Role Phone Mac Sher MD Unavailable [phone] Micky Dickson MD Primary Care Provider [phone] Robert Mae MD Unavailable Maryann El APRN, ENGINE COWLING INSTALLER Unavailable + [phone] Germania Navarro APRN, MEDICAL UNDERWRITER Unavailable Leny Morales MD Unavailable [phone] Silva Vicente MD Primary Care Provider [phone] Manisha Galeas MD Primary Care Provider [phone] Theodora Berry HARDENING MACHINE OPERATOR, MEDICAL UNDERWRITER Primary Care Provider Reason for Visit * Reason Comments Medication Refill Encounter Details Date Type Department Care Team (Late st Contact Info) Description 01/30/2024 Refill [facility] - Neurology - [place] #2 [place] [address] Maryann El, CESAR, ENGINE COWLING INSTALLER #2 [place] [address] Medication Refill Social History Tobacco Use Types [...] Dept 12/15/23 Procedure Visit [place] [facility] [place] 11/16/23 Office Visit Mac Sher [place] [facility] [place] [facility] [place] 08/25/23 Procedure Visit Mac Sher [place] [facility] [place] 05/26/23 Procedure Visit Mac Sher [place] [facility] [place] 05/09/23 Telemedicine Mac Sher MD [facility] 03/01/23 Procedure Visit Mca Sher MD [facility] [place] 02/20/23 Office Visit Maryann El APRN, ENGINE COWLING INSTALLER [facility] recent visits within past 365 days and meeting all other requirements Future Appointments Date Type Provider Dept 02/23/24 Appointment Maryann El APRN, [facility] Neurology [place] [facility] 03/08/24 Appointment Mac Sher MD [facility] Showing future appointments within next [...] 10:30 AM CDT Office Visit [facility] #2 [place] [address] Sundar Tristan MD #2 [facility] [address] [place] [address] 04/03/2025 10:00 AM CDT Office [facility] - Gastroenterology [facility] #2 [place] [address] Feliberto Winston MD 2 [facility] [address] [place] [address] 04/03/2025 11:00 AM CDT Office Visit [facility] - Neurology - [place] #2 [place] [address] Maryann El APRN, ENGINE COWLING INSTALLER #2 [place] [address] 04/22/2025 10:30 AM CDT Office Visit [facility] Medical [facility] - Family Medicine - [place] #2 [place] [address] Theodora Berry, HARDENING MACHINE OPERATOR, MEDICAL UNDERWRITER 2 [facility] [place] [address] documented as of this encounter Visit Diagnoses Diagnosis Chronic migraine w/o aura w/o status migrainosus, not intractable Chronic migraine without aura, without mention of intractable migraine without mention of status migrainosus documented in this encounter Additional Health Concerns Infection Onset Date Last Indicated Resolved Time COVID - 19 09/03/2024 09/03/2024 09/03/2024 9:25 PM GAG WRITER documented as of this encounter Care Teams Tractor Crane Operator Relationship Specialty Start Date End Date Micky Dickson MD 4 [facility] [address] CASTRO [address] [place] [address] PCP - General Family Medicine 09/25/23 07/04/24 Silva Vicente MD 4 [facility] [address]STR[address] [place] [address] PCP - General Family Medicine 07/05/24 12/29/24 Manisha Galeas MD 4 [facility] [address] [place] [address] PCP - General Family Medicine 12/30/24 01/20/25 Theodora Berry, CESAR, MEDICAL UNDERWRITER 2 [place] [address] [address] PCP - General Advanced Practice Nurse 01/21/25 Mac Sher MD #2 [facility] [place] [address] Consulting Physician Neurology 09/15/15 Robert Mae MD #2 [place] [address] Consulting Physician Pulmonary Disease 10/27/22 Maryann El APRN, ENGINE COWLING INSTALLER #2 [place] [address] Nurse Practitioner Advanced Practice Nurse 12/21/22 Germania Navarro APRN, MEDICAL UNDERWRITER #2 [place] [address] Nurse Practitioner Advanced Practice Nurse 10/04/23 Leny Morales MD #2 [place] [address] Consulting Physician Gastroenterology 01/19/23 documented as of this encounter
--- OUTSIDE RECORDS SUMMARY | 2025-03-26 09:13 | XMS_ITS | Encounter Summary ---
Author Organization [facility] Address [address] [place] [address] Phone Care Team Providers Care Iron Worker Name Role Phone Mac Sher MD Unavailable Winifred Armstrong SUPERVISOR CORDUROY CUTTING, APPEALS NURSE Primary Care Provider Micky Dickson MD Primary Care Provider [phone] Robert Mae MD Unavailable Maryann El APRN, RN LAB Unavailable + [phone] Germania Navarro APRN, APPEALS NURSE Unavailable Leny Morales MD Unavailable [phone] Silva Vicente MD Primary Care Provider [phone] Manisha Galeas MD Primary Care Provider [phone] Theodora Berry SUPERVISOR CORDUROY CUTTING, APPEALS NURSE Primary Care Provider [phone] Encounter Details Date Type Department Care Team (Latest Contact Info) Description 06/22/2020 Transcribe Orders [facility] Central Scheduling [address] [place] [address] Winifred Armstrong APRN, APPEALS NURSE [address] [place] [address] Other nonspecific abnormal finding of lung field [...] 10:30 AM CDT Office Visit [facility] UROLOGY #2 [place] [address] Sundar Tristan MD #2 [facility] [address] [place] [address] 04/03/2025 10:00 AM CDT [facility] - [place] #2 [place] [address] Feliberto Winston MD 2 [facility] [address] [place] [address] 04/03/2025 11:00 AM CDT [facility] - [facility] - [place] #2 [place] [address] Maryann El, SUPERVISOR CORDUROY CUTTING, RN LAB #2 [place] [address] 04/22/2025 10:30 AM CDT Office Visit [facility] - Family Medicine - [place] #[address] [place] [address] Theodora Berry, CESAR, APPEALS NURSE [address] [facility] [address] [place] [address] documented as of this encounter Visit Diagnoses Diagnosis Other nonspecific abnormal finding of lung field- Primary documented in this encounter Additional Health Concerns Infection Onset Date Last Indicated Resolved Time COVID - 19 06/23/2021 06/23/2021 06/29/2021 9:2 4 PM CDT COVID - 19 09/03/2024 09/03/2024 09/03/2024 9:25 PM CALL CENTER ASSOCIATE documented as of this encounter Care Teams Iron Worker Relationship Specialty Start Date End Date Winifred Armstrong APRN, APPEALS NURSE [address] [place] [address] PCP - General Advanced Practice Nurse 10/17/19 Micky Dickson MD [address] [place] [address] [address] [place] [address] PCP - General Family Medicine 09/25/23 07/04/24 Silva Vicente MD [address] [place] [address] [address] [place] [address] PCP - General Family Medicine 07/05/24 12/29/24 Manisha Galeas MD [address] [place] [address] [address] [place] [address] PCP - General Family Medicine 12/30/24 01/20/25 Theodroa Berry, CESAR, APPEALS NURSE [address] [address] PCP - General Advanced Practice Nurse 01/21/25 Mac Sher MD #2 [place] [address] Consulting Physician Neurology 09/15/15 Robert Mae MD #2 [place] [address] Consulting Physician Pulmonary Disease 10/27/22 Maryann El APRN, RN LAB #2 [place] [address] Nurse Practitioner Advanced Practice Nurse 12/21/22 Germania Navarro APRN, APPEALS NURSE #2 [place] [address] Nurse Practitioner Advanced Practice Nurse 10/04/23 Leny Morales MD #2 [place] [address] Consulting Physician Gastroenterology 01/19/23 documented as of this encounter
--- OUTSIDE RECORDS SUMMARY | 2025-03-26 09:13 | XMS_ITS | Encounter Summary ---
Author Organization [facility] Address [address] [place] [address] Phone Care Team Providers Care Communications And Signals Supervisor Name Role Phone Mac Sher MD Unavailable [phone] Winifred Armstrong EXECUTIVE ADMINISTRATIVE ASST, EDITOR MANAGING DIRECTOR Primary Care Provider Micky Dickson MD Primary Care Provider [phone] Robert Mae MD Unavailable Maryann El APRN, [facility] Unavailable + [phone] Germania Navarro APRN, EDITOR MANAGING DIRECTOR Unavailable eLny Morales MD Unavailable [phone] Silva Vicente MD Primary Care Provider [phone] Manisha Galeas MD Primary Care Provider [phone] Theodora Berry EXECUTIVE ADMINISTRATIVE ASST, EDITOR MANAGING DIRECTOR Primary Care Provider [phone] Reason for Visit * Reason Comments Medication Refill Encounter Details Date Type Department Care Team (Late st Contact Info) Description 11/10/2022 Refill [facility] - Neurology [facility] #2 [place] [address] Mac Sher MD #2 [place] [address] Medication Refill Social History Tobacco Use Types [...] Coronavirus/COVID-19? No / Unsure 11/11/2022 10:19 AM THORACIC MEDICINE PHYSICIAN documented as of this encounter Plan of Treatment Upcoming Encounters Date Type Department Care Team (Late st Contact Info) Description 04/02/2025 10:30 AM CDT Office Visit [facility] UROLOGY #2 [place] [address] Sundar Tristan MD #2 [facility] [address] [place] [address] 04/03/2025 10:00 AM CDT Office Visit [facility] Medical Group - Gastroenterology [facility] #2 [place] [address] Feliberto Winston MD 2 [facility] [address] [place] [address] 04/03/2025 11:00 AM CDT [facility] - [place] #2 [place] [address] Maryann El APRN, HEDGE FUND TRADER #[address] [place] [address] 04/22/2025 10:30 AM CDT Office Visit [facility] Family [facility] - [place] #[address] [place] [address] Theodora Berry APRN, EDITOR MANAGING DIRECTOR 2 [facility] [place] [facility] [address] [place] [address] documented as of this encounter Visit Diagnoses Not on filedocumented in this encounter Additional Health Concerns Infection Onset Date Last Indicated Resolved Time COVID - 19 09/03/2024 09/03/2024 09/03/2024 9:25 PM THORACIC MEDICINE PHYSICIAN documented as of this encounter Care Teams Communications And Signals Supervisor Relationship Specialty Start Date End Date Winifred Armstrong APRN, EDITOR MANAGING DIRECTOR [address] [place] [address] PCP - General Advanced Practice Nurse 10/17/19 Micky Dickson MD [address] [place] [address] [address] [place] [address] PCP - General Family Medicine 09/25/23 07/04/24 Silva Vicente MD [address] [place] [address] [place] [address] PCP - General Family Medicine 07/05/24 12/29/24 Manisha Galeas MD [address] [place] [address] [place] [address] PCP - General Family Medicine 12/30/24 01/20/25 Theodora Berry APRN, EDITOR MANAGING DIRECTOR [address] [address] PCP - General Advanced Practice Nurse 01/21/25 Mac Sher MD #2 [place] [address] Consulting Physician Neurology 09/15/15 Robert Mae MD #2 [place] [address] Consulting Physician Pulmonary Disease 10/27/22 Maryann El APRN, HEDGE FUND TRADER #[address] [place] [address] Nurse Practitioner Advanced Practice Nurse 12/21/22 Germania Navarro APRN, EDITOR MANAGING DIRECTOR #2 [place] [address] Nurse Practitioner Advanced Practice Nurse 10/04/23 Leny Morales MD #2 [place] [address] Consulting Physician Gastroenterology 01/19/23 documented as of this encounter
--- OUTSIDE RECORDS SUMMARY | 2025-03-26 09:14 | XMS_ITS | Encounter Summary ---
Author Organization [facility] Address [address] [place] [address] Phone Care Team Providers Care Wheel Truing Machine Tender Name Role Phone Mac Sher MD Unavailable [phone] Winifred Armstrong SURVEY INSTRUMENT OPERATOR, COMMUNITY SERVICE SPECIALIST Primary Care Provider Micky Dickson MD Primary Care Provider Robert Mae MD Unavailable Maryann El APRN, [facility] Unavailable [phone] Germania Navarro APRN, COMMUNITY SERVICE SPECIALIST Unavailable Leny Morales MD Unavailable [phone] Silva Vicente MD Primary Care Provider [phone] Manisha Galeas MD Primary Care Provider [phone] Theodora Berry SURVEY INSTRUMENT OPERATOR, COMMUNITY SERVICE SPECIALIST Primary Care Provider [phone] Reason for Visit * Reason Comments Medication Refill Encounter Details Date Type Department Care Team (Late st Contact Info) Description 04/04/2023 [facility]ill [facility] - [place] #2 [place] [address] Germania Navarro APRN, COMMUNITY SERVICE SPECIALIST #2 [place] [address] Medication Refill Social History Tobacco Use Types [...] AM CDT Medication refilled and signed per [facility] chronic medication standing order for pediatric and adult patients. documented in this encounter Plan of Treatment Upcoming Encounters Date Type Department Care Team (Late st Contact Info) Description 04/02/2025 10:30 AM CDT Office Visit [facility] UROLOGY #2 [place] [address] Sundar Tristan MD #2 [facility] [address] [place] [address] 04/03/2025 10:00 AM CDT Office Visit [facility] - [facility] #2 [place] [address] Feliberto Winston MD 2 [facility] [address] [place] [address] 04/03/2025 11:00 AM CDT [facility] [place] #[address] [place] [address] Maryann El, SURVEY INSTRUMENT OPERATOR, PRINCIPAL LIBRARIAN #2 [address] [facility] [place] [address] 04/22/2025 10:30 AM CDT Office Visit [facility] - Family Medicine - [place] #2 [place] [facility] [place] [address] Theodora Berry, SURVEY INSTRUMENT OPERATOR, COMMUNITY SERVICE SPECIALIST 2 [facility] [place] [facility]. 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 documented as of this encounter Care Teams Wheel Truing Machine Tender Relationship Specialty Start Date End Date Winifred Armstrong, SURVEY INSTRUMENT OPERATOR, COMMUNITY SERVICE SPECIALIST [address] [place] [address] PCP - General Advanced Practice Nurse 10/17/19 Micky Dickson MD [address] [place] [address] [address] [place] [address] PCP - General Family Medicine 09/25/23 07/04/24 Silva Vicente MD [address] [place] [address] [address] [place] [address] PCP - General Family Medicine 07/05/24 12/29/24 Manisha Galeas MD [address] [place] [address] [address] [place] [address] PCP - General Family Medicine 12/30/24 01/20/25 Theodora Berry APRN, COMMUNITY SERVICE SPECIALIST [address] [address] PCP - General Advanced Practice Nurse 01/21/25 Mac Sher MD #2 [place] [address] Consulting Physician Neurology 09/15/15 Robert Mae MD #2 [place] [address] Consulting Physician Pulmonary Disease 10/27/22 Maryann El APRN, PRINCIPAL LIBRARIAN #[address] [place] [address] Nurse Practitioner Advanced Practice Nurse 12/21/22 Germania Navarro APRN, COMMUNITY SERVICE SPECIALIST #[address] [place] [address] Nurse Practitioner Advanced Practice Nurse 10/04/23 Leny Morales MD #2 [place] [address] Consulting Physician Gastroenterology 01/19/23 documented as of this encounter
--- OUTSIDE RECORDS SUMMARY | 2025-03-26 09:14 | XMS_ITS | Encounter Summary ---
Author Organization [facility] Address [address] [place] [address] Phone Care Team Providers Care Chief Risk Officer Name Role Phone Mac Sher MD Unavailable Winifred Armstrong FORENSIC SCIENCE EXAMINER, CORE DRIER Primary Care Provider Micky Dickson MD Primary Care Provider [phone] Robert Mae MD Unavailable Maryann El APRN, [facility] Unavailable + [phone] Germania Navarro APRN, CORE DRIER Unavailable Leny Morales MD Unavailable [phone] Silva Vicente MD Primary Care Provider [phone] Manisha Galeas MD Primary Care Provider Theodora Berry FORENSIC SCIENCE EXAMINER, CORE DRIER Primary Care Provider [phone] Reason for Visit * Reason Comments Medication Refill Encounter Details Date Type Department Care Team (Late st Contact Info) Description 05/05/2022 Refill [facility] - Neurology [facility] #2 [place] [address] Mac Sher MD #2 [place] [address] Medication Refill Social History Tobacco Use Types [...] Description 04/02/2025 10:30 AM CDT Office Visit [facility] UROLOGY #2 [place] [address] Sundar Tristan MD #2 [facility] [address] [place] [address] 04/03/2025 10:00 AM CDT Office Visit [facility] - Gastroenterology - [place] #2 [place] [address] Feliberto Winston MD 2 [facility] [address] [place] [address] 04/03/2025 11:00 AM CDT [facility] - [place] #2 [place] [address] Maryann El APRN, CYTOLOGY LABORATORY MANAGER #2 [facility] [address] 04/22/2025 10:30 AM CDT Office Visit [facility] - Family [facility] - [place] #[address] [place] [address] Theodora Berry, FORENSIC SCIENCE EXAMINER, CORE DRIER [address] [place] 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 documented as of this encounter Care Teams Chief Risk Officer Relationship Specialty Start Date End Date Winifred Armstrong APRN, CORE DRIER [address] [place] [address] PCP - General Advanced Practice Nurse 10/17/19 Micky Dickson MD [address] [place] [address] DR CASTRO [address] [place] [address] PCP - General Family Medicine 09/25/23 07/04/24 Silva Vicente MD [address] [place] [address] [place] [address] PCP - General Family Medicine 07/05/24 12/29/24 Manisha Galeas MD [address] [place] [address] [place] [address] PCP - General Family Medicine 12/30/24 01/20/25 Theodora Berry, FORENSIC SCIENCE EXAMINER, CORE DRIER [address] [facility] [address] [place] [address] PCP - General Advanced Practice Nurse 01/21/25 Mac Sher MD #2 [place] [address] Consulting Physician Neurology 09/15/15 Robert Mae MD #2 [place] [address] Consulting Physician Pulmonary Disease 10/27/22 Maryann El APRN, CYTOLOGY LABORATORY MANAGER #2 [place] [address] Nurse Practitioner Advanced Practice Nurse 12/21/22 Germania Navarro APRN, CORE DRIER #2 [place] [address] Nurse Practitioner Advanced Practice Nurse 10/04/23 Leny Morales MD #2 [place] [address] Consulting Physician Gastroenterology 01/19/23 documented as of this encounter
--- OUTSIDE RECORDS SUMMARY | 2025-03-26 09:14 | XMS_ITS | Encounter Summary ---
Author Organization [facility] Address [address] [place] [address] Phone Care Team Providers Care Rolling Mill Operator Name Role Phone Mac Sher MD Unavailable [phone] Winifred Armstrong SHOP ASSISTANT, BILINGUAL BRANCH MANAGER Primary Care Provider Micky Dickson MD Primary Care Provider Robert Mae MD Unavailable Maryann El APRN, [facility] Unavailable + [phone] Germania Navarro APRN, BILINGUAL BRANCH MANAGER Unavailable Leny Morales MD Unavailable [phone] Silva Vicente MD Primary Care Provider [phone] Manisha Galeas MD Primary Care Provider [phone] Theodora Berry SHOP ASSISTANT, BILINGUAL BRANCH MANAGER Primary Care Provider [phone] Reason for Visit * Reason Comments Medication Refill Encounter Details Date Type Department Care Team (Late st Contact Info) Description 04/26/2023 Refill [facility] - [facility]astroenterology - [place] #2 [place] [address] Germania Navarro APRN, BILINGUAL BRANCH MANAGER #2 [place] [address] Medication Refill Social History Tobacco Use Types [...] PM CDT Medication refilled and signed per [facility] chronic medication standing order for pediatric and adult patients. documented in this encounter Plan of Treatment Upcoming Encounters Date Type Department Care Team (Late st Contact Info) Description 04/02/2025 10:30 AM CDT Office Visit [facility] UROLOGY #2 [place] [address] Sundar Tristan MD #2 [facility] [address] [place] [address] 04/03/2025 10:00 AM CDT Office Visit [facility] - Gastroenterology [facility] #2 [place] [address] Feliberto Winston MD 2 [facility] [address] [place] [address] 04/03/2025 11:00 AM CDT [facility] - [place] #[address] [place] [address] Maryann El, SHOP ASSISTANT, SERVICE LIAISON REPRESENTATIVE #2 [place] [address] 04/22/2025 10:30 AM CDT Office Visit [facility] Medical Group - Family Medicine - [place] [address] [address] Theodora Berry, SHOP ASSISTANT, BILINGUAL BRANCH MANAGER 2 [facility] [address] [facility] 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 documented as of this encounter Care Teams Rolling Mill Operator Relationship Specialty Start Date End Date Winifred Armstrong, SHOP ASSISTANT, BILINGUAL BRANCH MANAGER [address] [place] [address] PCP - General Advanced Practice Nurse 10/17/19 Micky Dickson MD [address] [place] [address] [address] CASTRO [address] [place] [address] PCP - General Family Medicine 09/25/23 07/04/24 Silva Vicente MD [address] [place] [address] [address] CASTRO [address] [place] [address] PCP - General Family Medicine 07/05/24 12/29/24 Manisha Galeas MD [address] [place] [address] [address] CASTRO [address] [place] [address] PCP - General Family Medicine 12/30/24 01/20/25 Theodora Berry APRN, BILINGUAL BRANCH MANAGER [address] [address] PCP - General Advanced Practice Nurse 01/21/25 Mac Sher MD #2 [place] [address] Consulting Physician Neurology 09/15/15 Robert Mae MD #2 [place] [address] Consulting Physician Pulmonary Disease 10/27/22 Maryann El APRN, SERVICE LIAISON REPRESENTATIVE #2 [place] [address] Nurse Practitioner Advanced Practice Nurse 12/21/22 Germania Navarro APRN, BILINGUAL BRANCH MANAGER #2 [place] [address] Nurse Practitioner Advanced Practice Nurse 10/04/23 Leny Morales MD #2 [place] [address] Consulting Physician Gastroenterology 01/19/23 documented as of this encounter
--- OUTSIDE RECORDS SUMMARY | 2025-03-26 09:14 | XMS_ITS | Encounter Summary ---
Author Organization [facility] Address [address] [place] [address] Phone Care Team Providers Care Aircraft Armorer Name Role Phone Mac Sher MD Unavailable [phone] Winifred Armstrong ENGINE WIPER, SLUDGE FILTRATION ATTENDANT Primary Care Provider Micky Dickson MD Primary Care Provider [phone] Robert Mae MD Unavailable Maryann El APRN, [facility] Unavailable + [phone] Germania Navarro APRN, SLUDGE FILTRATION ATTENDANT Unavailable Leny Morales MD Unavailable [phone] Silva Vicente MD Primary Care Provider [phone] Manisha Galeas MD Primary Care Provider [phone] Theodora Berry ENGINE WIPER, SLUDGE FILTRATION ATTENDANT Primary Care Provider [phone] Reason for Visit * Reason Comments Medication Refill Encounter Details Date Type Department Care Team (Late st Contact Info) Description 04/21/2022 Refill [facility] - Neurology [facility] #2 [place] [address] Mac Sher MD #2 [place] [address] Medication Refill Social History Tobacco Use Types [...] Dept 03/18/22 Procedure Visit Mac Sher MD [facility] 12/03/21 Procedure Visit Mac Sher MD [facility] 11/30/21 Office Visit Mac Sher MD [facility] 09/27/21 Office Visit Maryann El APRN, NETWORK RELATIONS CONSULTANT [facility] 09/10/21 Procedure Visit Mac Sher MD [facility] Neurology [facility] 07/09/21 Office Visit Maryann El APRN, LEVAR [facility] Neurology [place] [facility] 06/18/21 Procedure Visit Mac Sher MD [facility] Neurology [facility] Showing recent visits within past 365 days and meeting all other requirements Future Appointments Date Type Provider Dept 06/10/22 Appointment Mac Sher MD [facility] Neurology [place] [facility] Showing future appointments within next 90 days and meeting all other requirements documented in this encounter Plan of Treatment Upcoming Encounters Date Type Department Care Team (Late st Contact Info) Description 04/02/2025 10:30 AM CDT Office Visit [facility] UR[facility]Y #2 [place] [address] Sundar Tristan MD #2 [facility] [address] [place] [address] 04/03/2025 10:00 AM CDT Office Visit [facility] Medical [facility] - Gastroenterology [facility] #2 [place] [address] Feliberto Winston MD 2 [facility] [address] [place] [address] 04/03/2025 11:00 AM CDT Office Visit [facility] Medical [facility] - Neurology - [place] #2 [place] [address] Maryann El APRN, NETWORK RELATIONS CONSULTANT #2 [place] [address] 04/22/2025 10:30 AM CDT Office Visit [facility] - Family Medicine - [place] #2 [place] [address] Theodora Berry, CESAR, SLUDGE FILTRATION ATTENDANT 2 [facility] [address] [address] documented as of this encounter Visit Diagnoses Not on filedocumented in this encounter Additional Health Concerns Infection Onset Date Last Indicated Resolved Time COVID - 19 09/03/2024 09/03/2024 09/03/2024 9:25 PM DETAILER FURNITURE documented as of this encounter Care Teams Aircraft Armorer Relationship Specialty Start Date End Date Winifred Armstrong APRN, SLUDGE FILTRATION ATTENDANT [address] [place] [address] PCP - General Advanced Practice Nurse 10/17/19 Micky Dickson MD [address] [place] [address] [address] PCP - General Family Medicine 09/25/23 07/04/24 Silva Vicente MD [address] [place] [address] [address] CASTRO [address] [place] [address] PCP - General Family Medicine 07/05/24 12/29/24 Manisha Galeas MD [address] [place] [address] DR CASTRO [address] [place] [address] PCP - General Family Medicine 12/30/24 01/20/25 Theodora Berry, CESAR, SLUDGE FILTRATION ATTENDANT 2 [facility] [place] [address] [address] PCP - General Advanced Practice Nurse 01/21/25 Mac Sher MD #2 [place] [address] Consulting Physician Neurology 09/15/15 Robert Mae MD #2 [place] [address] Consulting Physician Pulmonary Disease 10/27/22 Maryann El, ENGINE WIPER, NETWORK RELATIONS CONSULTANT #2 [place] [address] Nurse Practitioner Advanced Practice Nurse 12/21/22 Germania Navarro APRN, SLUDGE FILTRATION ATTENDANT #2 [place] [address] Nurse Practitioner Advanced Practice Nurse 10/04/23 Leny Morales MD #2 [place] [address] Consulting Physician Gastroenterology 01/19/23 documented as of this encounter
--- OUTSIDE RECORDS SUMMARY | 2025-03-26 09:14 | XMS_ITS | Encounter Summary ---
Author Organization [facility] Address [address] [place] [address] Phone Care Team Providers Care Second Officer Name Role Phone Mac Sher MD Unavailable Winifred Armstrong RISK MANAGEMENT MANAGER, INTEGRATED CIRCUIT LAYOUT DESIGNER Primary Care Provider Micky Dickson MD Primary Care Provider [phone] Robert Mae MD Unavailable Maryann El APRN, [facility] Unavailable + [phone] Germania Navarro APRN, INTEGRATED CIRCUIT LAYOUT DESIGNER Unavailable Leny Morales MD Unavailable [phone] Silva Vicente MD Primary Care Provider [phone] Manisha Galeas MD Primary Care Provider [phone] Theodora Berry RISK MANAGEMENT MANAGER, INTEGRATED CIRCUIT LAYOUT DESIGNER Primary Care Provider [phone] Reason for Visit * Reason Comments Medication Refill Encounter Details Date Type Department Care Team (Late st Contact Info) Description 02/14/2022 Refill [facility] - Neurology [facility] #2 [place] [address] Mac Sher MD #2 [place] [address] Medication Refill Social History Tobacco Use Types [...] AM CDT Office Visit [facility]OLOGY #2 [place] [address] Sundar Tristan MD #2 [facility] [address] [place] [address] 04/03/2025 10:00 AM CDT Office Visit [facility] Medical [facility] - Gastroenterology [facility] #2 [place] [address] Feliberto Winston MD 2 [facility] [address] [place] [address] 04/03/2025 11:00 AM CDT [facility] - [place] #2 [place] [address] Maryann El, RISK MANAGEMENT MANAGER, SALES SUPPORT ADVISOR #2 [place] [address] 04/22/2025 10:30 AM CDT Office Visit [facility] - Family Medicine [facility] #2 [place] [address] Theodora Berry APRN, INTEGRATED CIRCUIT LAYOUT DESIGNER [address] [address] documented as of this encounter Visit Diagnoses Not on filedocumented in this encounter Additional Health Concerns Infection Onset Date Last Indicated Resolved Time COVID - 19 09/03/2024 09/03/2024 09/03/2024 9:25 PM WORK ORDER CLERK documented as of this encounter Care Teams Second Officer Relationship Specialty Start Date End Date Winifred Armstrong APRN, INTEGRATED CIRCUIT LAYOUT DESIGNER [address] [place] [address] PCP - General Advanced Practice Nurse 10/17/19 Micky Dickson MD [address] [place] [address] DR CASTRO [address] [place] [address] PCP - General Family Medicine 09/25/23 07/04/24 Silva Vicente MD [address] [place] [address] [address] CASTRO [address] [place], [place] [address] [address] PCP - General Family Medicine 07/05/24 12/29/24 Manisha Galeas MD [address] [place] [address] [address] CASTRO [address] [place], [place] [address] [address] PCP - General Family Medicine 12/30/24 01/20/25 Theodora Berry APRN, INTEGRATED CIRCUIT LAYOUT DESIGNER 2 [facility] [place] [address] [address] PCP - General Advanced Practice Nurse 01/21/25 Mac Sher MD #2 [facility] [place] [address] Consulting Physician Neurology 09/15/15 Robert Mae MD #2 [place] [address] Consulting Physician Pulmonary Disease 10/27/22 Maryann El APRN, SALES SUPPORT ADVISOR #2 [place] [address] Nurse Practitioner Advanced Practice Nurse 12/21/22 Germania Navarro APRN, INTEGRATED CIRCUIT LAYOUT DESIGNER #2 [place] [address] Nurse Practitioner Advanced Practice Nurse 10/04/23 Leny Morales MD #2 [place] [address] Consulting Physician Gastroenterology 01/19/23 documented as of this encounter
--- OUTSIDE RECORDS SUMMARY | 2025-03-26 09:14 | XMS_ITS | Encounter Summary ---
Author Organization [facility] Address [address] [place] [address] Phone Care Team Providers Care Military Technology Specialist Name Role Phone Mac Sher MD Unavailable Winifred Armstrong ELECTROPLATER APPRENTICE, NIGHT WAREHOUSE SELECTOR Primary Care Provider Micky Dickson MD Primary Care Provider Robert Mae MD Unavailable Maryann El APRN, [facility] Unavailable + [phone] Germania Navarro APRN, NIGHT WAREHOUSE SELECTOR Unavailable Leny Morales MD Unavailable [phone] Silva Vicente MD Primary Care Provider [phone] Manisha Galeas MD Primary Care Provider [phone] Theodora Berry ELECTROPLATER APPRENTICE, NIGHT WAREHOUSE SELECTOR Primary Care Provider [phone] Reason for Visit * Reason Comments Medication Refill Encounter Details Date Type Department Care Team (Late st Contact Info) Description 09/04/2023 Refill [facility] - Gastroenterology - [place] #2 [place] [address] Germania Navarro APRN, NIGHT WAREHOUSE SELECTOR #2 [place] [address] Medication Refill Social History Tobacco Use Types [...] Monica Marcelo RN - 09/04/2023 3:02 PM LANGUAGE INTERPRETER Per nursing clinical judgement, provider to review [...] Dept 01/19/23 Office Visit Leny Morales MD [facility] Showing recent visits within past 365 days and meeting all other requirements Future Appointments No visits were found meeting these conditions. Showing future appointments within next 90 days and meeting all other requirements UAGE INTERPRETER documented in this encounter Plan of Treatment Upcoming Encounters Date Type Department Care Team ([facility] Contact Info) Description 04/02/2025 10:30 AM CDT Office Visit [facility] UROLOGY #2 [place] [address] Sundar Tristan MD #2 [facility] [address] [place] [address] 04/03/2025 10:00 AM CDT Office Visit [facility] - Gastroenterology - [place] #2 [place] [address] Feliberto Winston MD 2 [facility] [address] [place] [address] 04/03/2025 11:00 AM CDT [facility] - [place] #2 [place] [address] Maryann El APRN, ACCESS SPECIALIST #[address] [place] [address] 04/22/2025 10:30 AM CDT Office Visit [facility] - Family Medicine - [place] #2 [place] [address] Theodora Berry, ELECTROPLATER APPRENTICE, NIGHT WAREHOUSE SELECTOR 2 [facility] [address] [place] [address] documented as of this encounter Visit Diagnoses Not on filedocumented in this encounter Additional Health Concerns Infection Onset Date Last Indicated Resolved Time COVID - 19 09/03/2024 09/03/2024 09/03/2024 9:25 PM LANGUAGE INTERPRETER documented as of this encounter Care Teams Military Technology Specialist Relationship Specialty Start Date End Date Winifred rAmstrong APRN, NIGHT WAREHOUSE SELECTOR [address] [place] [address] PCP - General Advanced Practice Nurse 10/17/19 Micky Dickson MD 4 [facility] [address] [place] [address] PCP - General Family Medicine 09/25/23 07/04/24 Silva Vicente MD [address] [facility] [address] [place] [address] PCP - General Family Medicine 07/05/24 12/29/24 Manisha Galeas MD [address] [facility] [address] [place] [address] PCP - General Family Medicine 12/30/24 01/20/25 Theodora Berry APRN, NIGHT WAREHOUSE SELECTOR 2 [facility] [address] [address] PCP - General Advanced Practice Nurse 01/21/25 Mac Sher MD #2 [place] [address] Consulting Physician Neurology 09/15/15 Robert Mae MD #2 [place] [address] Consulting Physician Pulmonary Disease 10/27/22 Maryann El APRN, ACCESS SPECIALIST #[address] [place] [address] Nurse Practitioner Advanced Practice Nurse 12/21/22 Germania Navarro APRN, NIGHT WAREHOUSE SELECTOR #2 [place] [address] Nurse Practitioner Advanced Practice Nurse 10/04/23 Leny Morales MD #[address] [place] [address] Consulting Physician Gastroenterology 01/19/23 documented as of this encounter
--- OUTSIDE RECORDS SUMMARY | 2025-03-26 09:14 | XMS_ITS | Encounter Summary ---
Author Organization [facility] Address [address] [place] [address] Phone Care Team Providers Care Fur Plucker Name Role Phone Mac Sher MD Unavailable [phone] Winifred Armstrong SENIOR MARKETING DATA ANALYST, THREAD CUTTER Primary Care Provider Micky Dickson MD Primary Care Provider [phone] Robert Mae MD Unavailable Maryann El APRN, [facility] Unavailable + [phone] Germania Navarro APRN, THREAD CUTTER Unavailable Leny Morales MD Unavailable [phone] Silva Vicente MD Primary Care Provider [phone] Manisha Galeas MD Primary Care Provider [phone] Theodora Berry SENIOR MARKETING DATA ANALYST, THREAD CUTTER Primary Care Provider [phone] Reason for Visit * Reason Comments Medication Refill Encounter Details Date Type Department Care Team (Late st Contact Info) Description 09/29/2020 Refill [facility] - [place] #[facility] [place] [address] Mac Sher MD #2 [place] [address] Medication Refill Social History Tobacco Use Types [...] COVID-19? No / Unsure 09/30/2020 6:05 AM MANAGER ORDER documented as of this encounter Plan of Treatment Upcoming Encounters Date Type Department Care Team (Late st Contact Info) Description 04/02/2025 10:30 AM CDT Office Visit [facility]YS[facility]IAN GROUP UROLOGY #2 [place] [address] Sundar Tristan MD #2 [facility] [address] [place] [address] 04/03/2025 10:00 AM CDT Office Visit [facility] Medical Group - Gastroenterology - [place] #2 [place] [address] Feliberto Winston MD 2 [facility] [address] [place] [address] 04/03/2025 11:00 AM CDT Office Visit [facility] Medical Group - Neurology - [place] #2 [place] [address] Maryann El, SENIOR MARKETING DATA ANALYST, FIELD COORDINATOR #2 [place] [address] 04/22/2025 10:30 AM CDT Office Visit [facility] - Family [facility] - [place] #[address] [place] [address] Theodora Berry, SENIOR MARKETING DATA ANALYST, THREAD CUTTER 2 [address] [facility] [address] [place] [address] documented as of this encounter Visit Diagnoses Not on filedocumented in this encounter Additional Health Concerns Infection Onset Date Last Indicated Resolved Time COVID - 19 06/23/2021 06/23/2021 06/29/2021 9:24 PM CDT COVID - 19 09/03/2024 09/03/2024 09/03/2024 9:25 PM MANAGER ORDER documented as of this encounter Care Teams Fur Plucker Relationship Specialty Start Date End Date Winifred Armstrong APRN, THREAD CUTTER [address] [place] [address] PCP - General Advanced Practice Nurse 10/17/19 Micky Dickson MD [address] [place] [address] [address] CASTRO [address] [place] [address] PCP - General Family Medicine 09/25/23 07/04/24 Silva Vicente MD [address] [place] [address] [address] CASTRO [address] [place] [address], [place] [address] PCP - General Family Medicine 07/05/24 12/29/24 Manisha Galeas MD [address] [place] [address] [place] [address] PCP - General Family Medicine 12/30/24 01/20/25 Theodora Berry, SENIOR MARKETING DATA ANALYST, THREAD CUTTER [address] [address] PCP - General Advanced Practice Nurse 01/21/25 Mac Sher MD #2 [place] [address] Consulting Physician Neurology 09/15/15 Robert Mae MD #2 [place] [address] Consulting Physician Pulmonary Disease 10/27/22 Maryann El, SENIOR MARKETING DATA ANALYST, FIELD COORDINATOR #2 [place] [address] Nurse Practitioner Advanced Practice Nurse 12/21/22 Germania Navarro, SENIOR MARKETING DATA ANALYST, THREAD CUTTER #2 [place] [address] Nurse Practitioner Advanced Practice Nurse 10/04/23 Leny Morales MD #2 [place] [address] Consulting Physician Gastroenterology 01/19/23 documented as of this encounter
--- OUTSIDE RECORDS SUMMARY | 2025-03-26 09:14 | XMS_ITS | Encounter Summary ---
Author Organization [facility] Address [address] [place] [address] Phone Care Team Providers Care Industrial Design Engineer Name Role Phone Mac Sher MD Unavailable [phone] Winifred Armstrong REPAIR MECHANIC, MOLECULAR BIOLOGY SCIENTIST Primary Care Provider Micky Dickson MD Primary Care Provider [phone] Robert Mae MD Unavailable Maryann El APRN, [facility] Unavailable + [phone] Germania Navarro APRN, MOLECULAR BIOLOGY SCIENTIST Unavailable Leny Morales MD Unavailable [phone] Silva Vicente MD Primary Care Provider [phone] Manisha Galeas MD Primary Care Provider [phone] Theodora Berry REPAIR MECHANIC, MOLECULAR BIOLOGY SCIENTIST Primary Care Provider [phone] Reason for Visit * Reason Comments Medication Refill Encounter Details Date Type Department Care Team (Late st Contact Info) Description 06/21/2021 Refill [facility] Medical [facility] - Neurology [facility] #2 [place] [address] Maryann El APRN, SEED SORTER #2 [place] [address] Medication Refill Social History Tobacco Use Types [...] 10:30 AM CDT Office Visit [facility] PHYSICIAN GROUP UROLOGY #2 [place] [address] Sundar Tristan MD #2 [facility] [address] [place] [address] 04/03/2025 10:00 AM CDT Office Visit [facility] - Gastroenterology - [place] #2 [place] [address] Feliberto Winston MD 2 [facility] [address] [place] [address] 04/03/2025 11:00 AM CDT [facility] - [place] #2 [place] [address] Maryann El APRN, SEED SORTER #2 [place] [address] 04/22/2025 10:30 AM CDT Office Visit [facility] - Family [facility] - [place] #[address] [place] [address] Theodora Berry, REPAIR MECHANIC, MOLECULAR BIOLOGY SCIENTIST 2 [facility]. [address] [place] [address] documented as of this encounter Visit Diagnoses [...] - 19 09/03/2024 09/03/2024 09/03/2024 9:25 PM DIRECTOR OF CRITICAL CARE documented as of this encounter Care Teams Industrial Design Engineer Relationship Specialty Start Date End Date Winifred Armstrong APRN, MOLECULAR BIOLOGY SCIENTIST [address] [place] [address] PCP - General Advanced Practice Nurse 10/17/19 Micky Dickson MD [address] [place] [address] [address] [place] [address] PCP - General Family Medicine 09/25/23 07/04/24 Silva Vicente MD [address] [place] [address] [address] CASTRO [address] [place] [address] PCP - General Family Medicine 07/05/24 12/29/24 Manisha Galeas MD [address] [place] [address] [place] [address] PCP - General Family Medicine 12/30/24 01/20/25 Theodora Berry, REPAIR MECHANIC, MOLECULAR BIOLOGY SCIENTIST [address] [address] PCP - General Advanced Practice Nurse 01/21/25 Mac Sher MD #2 [place] [address] Consulting Physician Neurology 09/15/15 Robert Mae MD #2 [place] [address] Consulting Physician Pulmonary Disease 10/27/22 Maryann El APRN, [facility] #2 [place] [address] Nurse Practitioner Advanced Practice Nurse 12/21/22 Germania Navarro APRN, MOLECULAR BIOLOGY SCIENTIST #2 [place] [address] Nurse Practitioner Advanced Practice Nurse 10/04/23 Leny Morales MD #2 [place] [address] Consulting Physician Gastroenterology 01/19/23 documented as of this encounter
--- OUTSIDE RECORDS SUMMARY | 2025-03-26 09:14 | XMS_ITS | Encounter Summary ---
Author Organization [facility] Address [address] [place] [address] Phone Care Team Providers Care Submersible Pilot Name Role Phone Mac Sher MD Unavailable Winifred Armstrong FIELD SALES AGENT, SPECIAL DELIVERY WORKER Primary Care Provider Micky Dickson MD Primary Care Provider [phone] Robert Mae MD Unavailable Maryann El APRN, [facility] Unavailable + [phone] Germania Navarro APRN, SPECIAL DELIVERY WORKER Unavailable Leny Morales MD Unavailable [phone] Silva Vicente MD Primary Care Provider [phone] Manisha Galeas MD Primary Care Provider [phone] Theodora Berry FIELD SALES AGENT, SPECIAL DELIVERY WORKER Primary Care Provider [phone] Reason for Visit * Reason Comments Medication Refill Encounter Details Date Type Department Care Team (Late st Contact Info) Description 06/28/2022 Refill [facility] Medical [facility] - Neurology [facility] #2 [place] [address] Mac Sher MD #2 [place] [address] Medication Refill Social History Tobacco Use Types [...] Description 04/02/2025 10:30 AM CDT Office Visit [facility] PHYSICIAN GROUP UROLOGY #2 [place] [address] Sundar Tristan MD #2 [facility] [address] [place] [address] 04/03/2025 10:00 AM CDT Office Visit [facility] Medical Group - Gastroenterology - [place] #2 [place] [address] Feliberto Winston MD 2 [facility] [address] [place] [address] 04/03/2025 11:00 AM CDT [facility] - [facility] - [place] #2 [place] [address] Maryann El APRN, CHURCH BUSINESS ADMINISTRATOR #2 [facility] [place] [address] 04/22/2025 10:30 AM CDT Office Visit [facility] - Family [facility] - [place] #[address] [place] [address] Theodora Berry, FIELD SALES AGENT, SPECIAL DELIVERY WORKER [address] [facility] [address] [place] [address] documented as of this encounter Visit Diagnoses Not on filedocumented in this encounter Additional Health Concerns Infection Onset Date Last Indicated Resolved Time COVID - 19 09/03/2024 09/03/2024 09/03/2024 9:25 PM MASTER CONTROL SUPERVISOR documented as of this encounter Care Teams Submersible Pilot Relationship Specialty Start Date End Date Winifred Armstrong APRN, SPECIAL DELIVERY WORKER [address] [place] [address] PCP - General Advanced Practice Nurse 10/17/19 Micky Dickson MD [address] [place] [address] DR CASTRO [address] [place] [address] PCP - General Family Medicine 09/25/23 07/04/24 Silva Vicente MD [address] [place] [address] [place] [address] PCP - General Family Medicine 07/05/24 12/29/24 Manisha Galeas MD [address] [place] [address] [place] [address] PCP - General Family Medicine 12/30/24 01/20/25 Theodora Berry, FIELD SALES AGENT, SPECIAL DELIVERY WORKER 2 [facility] [address] [place] [address] PCP - General Advanced Practice Nurse 01/21/25 Mac Sher MD #2 [place] [address] Consulting Physician Neurology 09/15/15 Robert Mae MD #2 [place] [address] Consulting Physician Pulmonary Disease 10/27/22 Maryann El APRN, [employer]UR[employer] BUSINESS ADMINISTRATOR #2 [place] [address] Nurse Practitioner Advanced Practice Nurse 12/21/22 Germania Navarro APRN, SPECIAL DELIVERY WORKER #2 [place] [address] Nurse Practitioner Advanced Practice Nurse 10/04/23 Leny Morales MD #2 [place] [address] Consulting Physician Gastroenterology 01/19/23 documented as of this encounter
--- OUTSIDE RECORDS SUMMARY | 2025-03-26 09:14 | XMS_ITS | Encounter Summary ---
Author Organization [facility] Address [address] [place] [address] Phone Care Team Providers Care Glass Cutting Machine Operator Name Role Phone Mac Sehr MD Unavailable Winifred Armstrong CIGARETTE CARTON SEALER, ALMOND PAN FINISHER Primary Care Provider Micky Dickson MD Primary Care Provider [phone] Robert Mae MD Unavailable Maryann El APRN, [facility] Unavailable + [phone] Germania Navarro APRN, ALMOND PAN FINISHER Unavailable Leny Morales MD Unavailable [phone] Silva Vicente MD Primary Care Provider [phone] Manisha Galeas MD Primary Care Provider [phone] Theodora Berry CIGARETTE CARTON SEALER, ALMOND PAN FINISHER Primary Care Provider [phone] Reason for Visit * Reason Comments Medication Refill Encounter Details Date Type Department Care Team (Late st Contact Info) Description 09/16/2023 Refill [facility] - Gastroenterology - [place] #2 [place] [address] Leny Morales MD #2 [place] [address] Medication Refill Social History Tobacco Use Types [...] Monica Marcelo RN - 09/28/2023 9:21 AM LOCAL COMPANY FLATBED TRUCK DRIVER Medication refilled and signed per [facility] chronic medication standing order for pediatric and adult patients. [employer] COMPANY FLATBED TRUCK DRIVER * Telephone Encounter - Sabina Boogie CMA - 09/25/2023 11:28 AM LOCAL COMPANY FLATBED TRUCK DRIVER Patient called and scheduled for 10/04/23 for medication management [employer] FLATBED TRUCK DRIVER * Telephone Encounter - Amber Davis RN - 09/18/2023 2:04 PM LOCAL COMPANY FLATBED TRUCK DRIVER Per chart review patient was to return to the office around 07/22/23 no appointment scheduled. Please call patient to schedule. [employer] COMPANY FLATBED TRUCK DRIVER documented in this encounter Plan of Treatment Upcoming Encounters Date Type Department Care Team (Late st Contact Info) Description 04/02/2025 10:30 AM CDT Office Visit [facility] PHYSICIAN GROUP UROLOGY #2 [place] [address] Sundar Tristan MD #2 [facility] [address] [place] [address] 04/03/2025 10:00 AM CDT Office Visit [facility] - Gastroenterology - [place] #2 [place] [address] Feliberto Winston MD 2 [facility] [address] [place] [address] 04/03/2025 11:00 AM CDT [facility] - [facility] - [place] #2 [place] [address] Maryann El, CIGARETTE CARTON SEALER, MIDDLE SCHOOL TUTOR #2 [place] [address] 04/22/2025 10:30 AM CDT Office Visit [facility] - Family Medicine - [place] #2 [place] [address] Theodora Berry, CIGARETTE CARTON SEALER, ALMOND PAN FINISHER 2 [facility] [address] [place] [address] documented as of this encounter Visit Diagnoses Not on filedocumented in this encounter Additional Health Concerns Infection Onset Date Last Indicated Resolved Time COVID - 19 09/03/2024 09/03/2024 09/03/2024 9:25 PM LOCAL COMPANY FLATBED TRUCK DRIVER documented as of this encounter Care Teams Glass Cutting Machine Operator Relationship Specialty Start Date End Date Winifred Armstrong, CIGARETTE CARTON SEALER, ALMOND PAN FINISHER [address] [place] [address] PCP - General Advanced Practice Nurse 10/17/19 Micky Dickson MD 4 [facility] [address] [place] [address] PCP - General Family Medicine 09/25/23 07/04/24 Silva Vicente MD [address] [place] [address] [place] [address] [place] [address] PCP - General Family Medicine 07/05/24 12/29/24 Manisha Galeas MD 4 [facility] [place] [address] [place] [address] PCP - General Family Medicine 12/30/24 01/20/25 Theodora Berry APRN, ALMOND PAN FINISHER [address] [address] PCP - General Advanced Practice Nurse 01/21/25 Mac Sher MD #2 [place] [address] Consulting Physician Neurology 09/15/15 Robert Mae MD #2 [place] [address] Consulting Physician Pulmonary Disease 10/27/22 Maryann El APRN, MIDDLE SCHOOL TUTOR #2 [place] [address] Nurse Practitioner Advanced Practice Nurse 12/21/22 Germania Navarro APRN, ALMOND PAN FINISHER #2 [place] [address] Nurse Practitioner Advanced Practice Nurse 10/04/23 Leny Morales MD #2 [place] [address] Consulting Physician Gastroenterology 01/19/23 documented as of this encounter
--- OUTSIDE RECORDS SUMMARY | 2025-03-26 09:14 | XMS_ITS | Encounter Summary ---
Author Organization [facility] Address [address] [place] [address] Phone Care Team Providers Care Band Instrument Repairer Name Role Phone Mac Sher MD Unavailable Winifred Armstrong SANITATION TRUCK CLEANER, GOAT HERDER Primary Care Provider Micky Dickson MD Primary Care Provider [phone] Robert Mae MD Unavailable Maryann El APRN, [facility] Unavailable + [phone] Germania Navarro APRN, GOAT HERDER Unavailable Leny Morales MD Unavailable [phone] Silva Vicente MD Primary Care Provider [phone] Manisha Galeas MD Primary Care Provider [phone] Theodora Berry SANITATION TRUCK CLEANER, GOAT HERDER Primary Care Provider [phone] Reason for Visit * Reason Comments Medication Refill Encounter Details Date Type Department Care Team (Late st Contact Info) Description 12/27/2021 Refill [facility] - Neurology [facility] #2 [place] [address] Mac Sher MD #2 [place] [address] Medication Refill Social History Tobacco Use Types [...] COVID-19? No / Unsure 12/03/2021 10:46 AM EMBROIDERY PATTERNMAKER documented as of this encounter Plan of Treatment Upcoming Encounters Date Type Department Care Team (Late st Contact Info) Description 04/02/2025 10:30 AM CDT Office Visit [facility] PHYSICIAN GROUP UROLOGY #2 [place] [address] Sundar Tristan MD #2 [facility] [address] [place] [address] 04/03/2025 10:00 AM CDT Office Visit [facility] Medical Group - Gastroenterology - [place] #2 [place] [address] Feliberto Winston MD 2 [facility] [address] [place] [address] 04/03/2025 11:00 AM CDT Office Visit [facility] Medical Group - Neurology - [place] #2 [place] [address] Maryann El APRN, CUSTOM SKI MAKER #2 [facility] [place] [address] 04/22/2025 10:30 AM CDT Office Visit [facility] - [facility] #[address] [place] [address] Theodora Berry, SANITATION TRUCK CLEANER, GOAT HERDER [address] [place] [address] [place] [address] documented as of this encounter Visit Diagnoses Not on filedocumented in this encounter Additional Health Concerns Infection Onset Date Last Indicated Resolved Time COVID - 19 09/03/2024 09/03/2024 09/03/2024 9:25 PM EMBROIDERY PATTERNMAKER documented as of this encounter Care Teams Band Instrument Repairer Relationship Specialty Start Date End Date Winifred Armstrong APRN, GOAT HERDER [address] [place] [address] PCP - General Advanced Practice Nurse 10/17/19 Micky Dickson MD [address] [place] [address] DR CASTRO [address] [place] [address] PCP - General Family Medicine 09/25/23 07/04/24 Silva Vicente MD [address] [place] [address] [place] [address] PCP - General Family Medicine 07/05/24 12/29/24 Manisha Galeas MD [address] [place] [address] [address] [place] [address] PCP - General Family Medicine 12/30/24 01/20/25 Theodora Berry, SANITATION TRUCK CLEANER, GOAT HERDER [address] [place] [address] [place] [address] PCP - General Advanced Practice Nurse 01/21/25 Mac Sher MD #2 [place] [address] Consulting Physician Neurology 09/15/15 Robert Mae MD #2 [place] [address] Consulting Physician Pulmonary Disease 10/27/22 Maryann El APRN, CUSTOM SKI MAKER #2 [place] [address] Nurse Practitioner Advanced Practice Nurse 12/21/22 Germania Navarro APRN, GOAT HERDER #2 [place] [address] Nurse Practitioner Advanced Practice Nurse 10/04/23 Leny Morales MD #2 [place] [address] Consulting Physician Gastroenterology 01/19/23 documented as of this encounter
--- OUTSIDE RECORDS SUMMARY | 2025-03-26 09:14 | XMS_ITS | Encounter Summary ---
Author Organization [facility] Address [address] [place] [address] Phone Care Team Providers Care Motorized Squad Captain Name Role Phone Mac Sher MD Unavailable [phone] Micky Dickson MD Primary Care Provider [phone] Robert Mae MD Unavailable Maryann El APRN, NEUROLOGICAL SURGEON Unavailable + [phone] Germania Navarro APRN, DIRECTOR PEDIATRIC Unavailable Leny Morales MD Unavailable [phone] Silva Vicente MD Primary Care Provider [phone] Manisha Galeas MD Primary Care Provider [phone] Theodora Berry RADIO ELECTRICIAN, DIRECTOR PEDIATRIC Primary Care Provider Reason for Visit * Reason Comments Medication Refill Encounter Details Date Type Department Care Team (Late st Contact Info) Description 11/18/2023 Refill [facility] - Gastroenterology - [place] #2 [place] [address] Germania Navarro APRN, DIRECTOR PEDIATRIC #2 [place] [address] Medication Refill Social History Tobacco Use Types [...] Monica Marcelo RN - 11/20/2023 9:30 AM JIG BORER Medication [facility]illed and signed [facility] standing order for pediatric and adult patients. BORER documented in this encounter Plan of Treatment Upcoming Encounters Date Type Department Care Team (Late st Contact Info) Description 04/02/2025 10:30 AM CDT Office Visit [facility] PHYSICIAN GROUP UROLOGY #2 [place] [address] Sundar Tristan MD #2 [facility] [address] [place] [address] 04/03/2025 10:00 AM CDT Office Visit [facility] Medical Group - Gastroenterology - [place] #2 [place] [address] Feliberto Winston MD 2 [facility] [address] [place] [address] 04/03/2025 11:00 AM CDT Office Visit [facility] Medical Group - Neurology - [place] #2 [place] [address] Maryann El APRN, NEUROLOGICAL SURGEON #2 [place] [address] 04/22/2025 10:30 AM CDT Office Visit [facility] - Family [facility] #[address] [place] [address] Theodora Berry APRN, DIRECTOR PEDIATRIC 2 [facility] [address] [facility] [address] [place] [address] documented as of this encounter Visit Diagnoses Not on filedocumented in this encounter Additional Health Concerns Infection Onset Date Last Indicated Resolved Time COVID - 19 09/03/2024 09/03/2024 09/03/2024 9:25 PM JIG BORER documented as of this encounter Care Teams Motorized Squad Captain Relationship Specialty Start Date End Date Micky Dickson MD [address] [place] [address] DR CASTRO [address] [place] [address] PCP - General Family Medicine 09/25/23 07/04/24 Silva Vicente MD [address] [place] [address] [place] [address] PCP - General Family Medicine 07/05/24 12/29/24 Manisha Galeas MD [address] [place] [address] [address] CASTRO [address] [place], [place] [address], [place] [address] PCP - General Family Medicine 12/30/24 01/20/25 Theodora Berry, CESAR, DIRECTOR PEDIATRIC [address] [address] PCP - General Advanced Practice Nurse 01/21/25 Mac Sher MD #2 [place] [address] Consulting Physician Neurology 09/15/15 Robert Mae MD #2 [place] [address] Consulting Physician Pulmonary Disease 10/27/22 Maryann El APRN, NEUROLOGICAL SURGEON #2 [place] [address] Nurse Practitioner Advanced Practice Nurse 12/21/22 Germania Navarro APRN, DIRECTOR PEDIATRIC #2 [place] [address] Nurse Practitioner Advanced Practice Nurse 10/04/23 Leny Morales MD #2 [place] [address] Consulting Physician Gastroenterology 01/19/23 documented as of this encounter
--- OUTSIDE RECORDS SUMMARY | 2025-03-26 09:14 | XMS_ITS | Encounter Summary ---
Author Organization [facility] Address [address] [place] [address] Phone Care Team Providers Care Computer Repair Engineer Name Role Phone Mac Sher MD Unavailable Winifred Armstrong CHECK GRADER, TEASEL GIG OPERATOR Primary Care Provider Micky Dickson MD Primary Care Provider [phone] Robert Mae MD Unavailable Maryann El APRN, [facility] Unavailable + [phone] Germania Navarro APRN, TEASEL GIG OPERATOR Unavailable Leny Morales MD Unavailable [phone] Silva Vicente MD Primary Care Provider [phone] Manisha Galeas MD Primary Care Provider [phone] Theodora Berry CHECK GRADER, TEASEL GIG OPERATOR Primary Care Provider [phone] Reason for Visit * Reason Comments Medication Refill Encounter Details Date Type Department Care Team (Late st Contact Info) Description 02/18/2022 Refill [facility] Medical [facility] - Neurology [facility]2 [place] [address] aMc Sher MD #2 [place] [address] Medication Refill Social History Tobacco Use Types [...] Description 04/02/2025 10:30 AM CDT Office Visit [facility]YS[facility]IAN GROUP UROLOGY #2 [place] [address] Sundar Tristan MD #2 [facility] [address] [place] [address] 04/03/2025 10:00 AM CDT Office Visit [facility] Medical Group - Gastroenterology - [place] #2 [place] [address] Feliberto Winston MD [address] [facility] [address] [place] [address] 04/03/2025 11:00 AM CDT [facility] - Neurology - [place] #2 [place] [address] Maryann El, CHECK GRADER, OFFICE SWEEPER #2 [place] [address] 04/22/2025 10:30 AM CDT Office Visit [facility] - Family Medicine - [place] #2 [place] [address] Theodora Berry, CHECK GRADER, TEASEL GIG OPERATOR 2 [facility]. [address] [place] [address] documented as of this encounter Visit Diagnoses Not on filedocumented in this encounter Additional Health Concerns Infection Onset Date Last Indicated Resolved Time COVID - 19 09/03/2024 09/03/2024 09/03/2024 9:25 PM HEAD LOADER documented as of this encounter Care Teams Computer Repair Engineer Relationship Specialty Start Date End Date Winifred Armstrong, CHECK GRADER, TEASEL GIG OPERATOR [address] [place] [address] PCP - General Advanced Practice Nurse 10/17/19 Micky Dickson MD [address] [place] [address] [place] [address] PCP - General Family Medicine 09/25/23 07/04/24 Silva Vicente MD [address] [place] [address] [place] [address] PCP - General Family Medicine 07/05/24 12/29/24 Manisha Galeas MD [address] [place] [address] [place] [address] PCP - General Family Medicine 12/30/24 01/20/25 Theodora Berry APRN, TEASEL GIG OPERATOR 2 [facility] [address] [address] PCP - General Advanced Practice Nurse 01/21/25 Mac Sher MD #2 [place] [address] Consulting Physician Neurology 09/15/15 Robert Mae MD #2 [place] [address] Consulting Physician Pulmonary Disease 10/27/22 Maryann El APRN, [facility] #2 [place] [address] Nurse Practitioner Advanced Practice Nurse 12/21/22 Germania Navarro APRN, TEASEL GIG OPERATOR #2 [place] [address] Nurse Practitioner Advanced Practice Nurse 10/04/23 Leny Morales MD #2 [place] [address] Consulting Physician Gastroenterology 01/19/23 documented as of this encounter
--- OUTSIDE RECORDS SUMMARY | 2025-03-26 09:14 | XMS_ITS | Encounter Summary ---
Author Organization [facility] Address [address] [place] [address] Phone Care Team Providers Care Highway Maintainer Name Role Phone Mac Sher MD Unavailable Winifred Armstrong INFORMATION SPECIALIST, BINDERY WORKER Primary Care Provider Micky Dickson MD Primary Care Provider [phone] Robert Mae MD Unavailable Maryann El APRN, [facility] Unavailable + [phone] Germania Navarro APRN, BINDERY WORKER Unavailable Leny Morales MD Unavailable [phone] Silva Vicente MD Primary Care Provider [phone] Manisha Galeas MD Primary Care Provider [phone] Theodora Berry INFORMATION SPECIALIST, BINDERY WORKER Primary Care Provider [phone] Reason for Visit * Reason Comments Medication Refill Encounter Details Date Type Department Care Team (Late st Contact Info) Description 11/06/2020 Refill [facility] - [facility]rology - [place] #1 [facility] [address] Mac Sher MD #2 [place] [address] Medication Refill Social History Tobacco Use Types [...] Description 04/02/2025 10:30 AM CDT Office Visit [facility] PHYSICIAN GROUP UROLOGY #2 [place] [address] Sundar Tristan MD #2 [facility] [address] [place] [address] 04/03/2025 10:00 AM CDT Office Visit [facility] Medical [facility] - Gastroenterology [facility] #2 [place] [address] Feliberto Winston MD [address] [facility] [address] [place] [address] 04/03/2025 11:00 AM CDT [facility] - [facility]rology - [place] #2 [place] [address] Maryann El, INFORMATION SPECIALIST, APPLICATION PROCESSOR #2 [place] [address] 04/22/2025 10:30 AM CDT Office Visit [facility] - Family Medicine - [place] #2 [facility] [place] [place] [address] Theodora Berry APRN, BINDERY WORKER 2 [facility] [address] [address] documented as of this encounter Visit Diagnoses Not on filedocumented in this encounter Additional Health Concerns Infection Onset Date Last Indicated Resolved Time COVID - 19 06/23/2021 06/23/2021 06/29/2021 9:24 PM CDT COVID - 19 09/03/2024 09/03/2024 09/03/2024 9:25 PM AUTOMOBILE DETAILER documented as of this encounter Care Teams Highway Maintainer Relationship Specialty Start Date End Date Winifred Armstrong APRN, BINDERY WORKER [address] [place] [address] PCP - General Advanced Practice Nurse 10/17/19 Micky Dickson MD [address] [facility] [address] CASTR[address] [place] [address] PCP - General Family Medicine 09/25/23 07/04/24 Silva Vicente MD [address] [place] [address] [address] [place] [address] PCP - General Family Medicine 07/05/24 12/29/24 Manisha Galeas MD [address] [facility] [address] [place] [address] PCP - General Family Medicine 12/30/24 01/20/25 Theodora Berry, CESAR, BINDERY WORKER 2 [place] [facility] [address] [place] [address] PCP - General Advanced Practice Nurse 01/21/25 Mac Sher MD #2 [place] [address] Consulting Physician Neurology 09/15/15 Robert Mae MD #2 [place] [address] Consulting Physician Pulmonary Disease 10/27/22 Maryann El APRN, APPLICATION PROCESSOR #2 [place] [address] Nurse Practitioner Advanced Practice Nurse 12/21/22 Germania Navarro APRN, BINDERY WORKER #2 [place] [address] Nurse Practitioner Advanced Practice Nurse 10/04/23 Leny Morales MD #2 [place] [address] Consulting Physician Gastroenterology 01/19/23 documented as of this encounter
--- OUTSIDE RECORDS SUMMARY | 2025-03-26 09:14 | XMS_ITS | Encounter Summary ---
Author Organization [facility] Address [address] [place] [address] Phone Care Team Providers Care Solar Sales Associate Name Role Phone Mac Sher MD Unavailable Winifred Armstrong RN MEDICAL SURGICAL, HISTOPATH TECH Primary Care Provider Micky Dickson MD Primary Care Provider [phone] Robert Mae MD Unavailable Maryann El APRN, [facility] Unavailable + [phone] Germania Navarro APRN, HISTOPATH TECH Unavailable Leny Morales MD Unavailable [phone] Silva Vicente MD Primary Care Provider [phone] Manisha Galeas MD Primary Care Provider [phone] Theodora Berry RN MEDICAL SURGICAL, HISTOPATH TECH Primary Care Provider [phone] Reason for Visit * Reason Comments Medication Refill Encounter Details Date Type Department Care Team (Late st Contact Info) Description 09/17/2021 Refill [facility] Medical [facility] - Neurology [facility] #2 [place] [address] Mac Sher MD #2 [place] [address] Medication Refill Social History Tobacco Use Types [...] COVID-19? No / Unsure 09/13/2021 9:22 AM THEATRICAL RIGGER documented as of this encounter Plan of Treatment Upcoming Encounters Date Type Department Care Team (Late st Contact Info) Description 04/02/2025 10:30 AM CDT Office Visit [facility] UROLOGY #2 [place] [address] Sundar Tristan MD #2 [facility] [address] [place] [address] 04/03/2025 10:00 AM CDT Office Visit [facility] Medical Group - Gastroenterology - [place] #2 [place] [address] Feliberto Winston MD 2 [facility] [address] [place] [address] 04/03/2025 11:00 AM CDT Office Visit [facility] Medical Group - Neurology - [place] #2 [place] [address] Maryann El APRN, BOAT TENDER #2 [place] [address] 04/22/2025 10:30 AM CDT Office Visit [facility] - Family [facility] #[address] [place] [address] Theodora Berry, RN MEDICAL SURGICAL, HISTOPATH TECH [address] [place] [address] [place] [address] documented as of this encounter Visit Diagnoses Not on filedocumented in this encounter Additional Health Concerns Infection Onset Date Last Indicated Resolved Time COVID - 19 09/03/2024 09/03/2024 09/03/2024 9:25 PM THEATRICAL RIGGER documented as of this encounter Care Teams Solar Sales Associate Relationship Specialty Start Date End Date Winifred Armstrong APRN, HISTOPATH TECH [address] [place] [address] PCP - General Advanced Practice Nurse 10/17/19 Micky Dickson MD [address] [place] [address] [address] [place] [address] PCP - General Family Medicine 09/25/23 07/04/24 Silva Vicente MD [address] [place] [address] [place] [address] PCP - General Family Medicine 07/05/24 12/29/24 Manisha Galeas MD [address] [place] [address] [address] [place] [address] PCP - General Family Medicine 12/30/24 01/20/25 Theodora Berry, RN MEDICAL SURGICAL, HISTOPATH TECH [address] [place] [address] [place] [address] PCP - General Advanced Practice Nurse 01/21/25 Mac Sher MD #2 [place] [address] Consulting Physician Neurology 09/15/15 Robert Mae MD #2 [place] [address] Consulting Physician Pulmonary Disease 10/27/22 Maryann El APRN, BOAT TENDER #2 [place] [address] Nurse Practitioner Advanced Practice Nurse 12/21/22 Germania Navarro APRN, HISTOPATH TECH #2 [place] [address] Nurse Practitioner Advanced Practice Nurse 10/04/23 Leny Morales MD #2 [place] [address] Consulting Physician Gastroenterology 01/19/23 documented as of this encounter
--- OUTSIDE RECORDS SUMMARY | 2025-03-26 09:14 | XMS_ITS | Encounter Summary ---
Author Organization [facility] Address [address] [place] [address] Phone Care Team Providers Care Calcine Furnace Tender Name Role Phone Mac Sher MD Unavailable [phone] Winifred Armstrong SENIOR ELECTRICAL CONTROLS ENGINEER, SUPERVISOR CARBON PAPER COATING Primary Care Provider Micky Dickson MD Primary Care Provider [phone] Robert Mae MD Unavailable Maryann El SENIOR ELECTRICAL CONTROLS ENGINEER, [employer] Unavailable + [phone] Germania Navarro APRN, SUPERVISOR CARBON PAPER COATING Unavailable Leny Morales MD Unavailable [phone] Silva Vicente MD Primary Care Provider [phone] Manisha Galeas MD Primary Care Provider [phone] Theodora Berry SENIOR ELECTRICAL CONTROLS ENGINEER, SUPERVISOR CARBON PAPER COATING Primary Care Provider Encounter Details Date Type Department Care Team (Late st Contact Info) Description 12/08/2021 [facility] 1 [place] [address] Winifred Armstrong, SENIOR ELECTRICAL CONTROLS ENGINEER, SUPERVISOR CARBON PAPER COATING [address] [place] [address] Pressure ulcer of right elbow, stage 2 [...] COVID-19? No / Unsure 12/03/2021 10:46 AM JACQUARD FIXER documented as of this encounter Plan of Treatment Upcoming Encounters Date Type Department Care Team (Late st Contact Info) Description 04/02/2025 10:30 AM CDT Office Visit [facility]IAN GROUP UROLOGY #2 [place] [address] Sundar Tristan MD #2 [facility] [address] [place] [address] 04/03/2025 10:00 AM CDT Office Visit [facility] Medical Group - Gastroenterology - [place] #2 [place] [address] Feliberto Winston MD 2 [facility] [address] [place] [address] 04/03/2025 11:00 AM CDT [facility] - [place] #2 [place] [address] Maryann El APRN, LOFTSMAN #2 [place] [address] 04/22/2025 10:30 AM CDT Office Visit [facility] - Family Medicine - [place] #[address] [place] [address] Theodora Berry APRN, [place] [address] [place]. [address] [place] [address] documented as of this encounter Procedures Procedure Name Priority Date/Time Associated Diagnosis Comments CULTURE, ANAEROBIC Routine 12/08/2021 11 :30 AM JACQUARD FIXER CULTURE, AEROBIC ONLY Routine 12/08/2021 11:30 AM JACQUARD FIXER documented in this encounter Results * CULTURE, ANAEROBIC (12/08/2021 11:30 AM JACQUARD FIXER) CULTURE RESULTS NO ANAEROBES ISOLATED 12/14/2021 9:16 AM JACQUARD FIXER [facility] CULTURE RESULTS STAPHYLOCOCCUS AUREUS 12/14/2021 9:16 AM JACQUARD FIXER [facility] Culture Non-Phlebotomy Collection / Unknown 12/08/2021 11:30 AM JACQUARD FIXER 12/08/2021 12:58 PM JACQUARD FIXER Narrative Organism Antibiotic Method Susceptibility Staphylococcus aureus Gentamicin [facility] VITEK II <=0.5 mcg/ml: Susceptible Staphylococcus aureus Oxacillin [facility] VITEK II 0.5 mcg/ml: Susceptible Staphylococcus aureus Tetracycline [facility] VITEK II <=1 mcg/ml: Susceptible Staphylococcus aureus Trimeth/Sulfamethoxazole [facility] DARIO II <=10 mcg/ml: Susceptible Staphylococcus aureus Vancomycin [facility] VITEK II <=0.5 mcg/ml: Susceptible us Winifred Armstrong APRN, CNP MICROBIOLOGY - GENERAL ORDERABLES Final Result [facility] [address] [place] [address], * CULTURE, AEROBIC (12/08/2021 11:30 AM JACQUARD FIXER) CULTURE RESULTS STAPHYLOCOCCUS AUREUS 12/11/2021 3:39 PM JACQUARD FIXER [facility] CULTURE RESULTS MORGANELLA MORGANII 12/11/2021 3:39 PM JACQUARD FIXER [facility] Culture Non-Phlebotomy Collection / Unknown 12/08/2021 11:30 AM JACQUARD FIXER 12/08/2021 12:58 PM JACQUARD FIXER Narrative Organism Antibiotic Method Susceptibility Staphylococcus aureus [...] IIB <=20 mcg/ml: Susceptible us Winifred Armstrong APRN, CNP MICROBIOLOGY - GENERAL ORDERABLES Final Result [facility] [address] [place] [address], documented in this encounter Visit Diagnoses Diagnosis Pressure ulcer of right elbow, stage 2 (HCC) documented in this encounter Additional Health Concerns Infection Onset Date Last Indicated Resolved Time COVID - 19 09/03/202409/03/2024 09/03/2024 9:25 PM JACQUARD FIXER documented as of this encounter Care Teams Calcine Furnace Tender Relationship Specialty Start Date End Date PattiEtienneWinifredaguilar Sosa APRN, SUPERVISOR CARBON PAPER COATING [address] [place] [address] PCP - General Advanced Practice Nurse 10/17/19 Micky Dickson MD 4 [facility] [address] [place] [address] PCP - General Family Medicine 09/25/23 07/04/24 Silva Vicente MD 4 [facility] [address] [address] PCP - General Family Medicine 07/05/24 12/29/24 Manisha Galeas MD [address] [place] [address] [address] PCP - General Family Medicine 12/30/24 01/20/25 Theodora Berry APRN, SUPERVISOR CARBON PAPER COATING [address] [address] PCP - General Advanced Practice Nurse 01/21/25 Mac Sher MD #2 [place] [address] Consulting Physician Neurology 09/15/15 Robert Mae MD #2 [place] [address] Consulting Physician Pulmonary Disease 10/27/22 Maryann El APRN, LOFTSMAN #2 [place] [address] Nurse Practitioner Advanced Practice Nurse 12/21/22 Germania Navarro APRN, [place] #2 [place] [address] Nurse Practitioner Advanced Practice Nurse 10/04/23 Leny Morales MD #2 [place] [address] Consulting Physician Gastroenterology 01/19/23 documented as of this encounter
--- OUTSIDE RECORDS SUMMARY | 2025-03-26 09:14 | XMS_ITS | Encounter Summary ---
Author Organization [facility] Address [address] [place] [address] Phone Care Team Providers Care Security System Engineer Name Role Phone Mac Sher MD Unavailable Winifred Armstrong FOREIGN LANGUAGE INSTRUCTOR, MOULDER OPERATOR Primary Care Provider Micky Dickson MD Primary Care Provider [phone] Robert Mae MD Unavailable Maryann El APRN, [facility] Unavailable + [phone] Germania Navarro APRN, MOULDER OPERATOR Unavailable Leny Morales MD Unavailable [phone] Silva Vicente MD Primary Care Provider [phone] Manisha Galeas MD Primary Care Provider [phone] Theodora Berry FOREIGN LANGUAGE INSTRUCTOR, MOULDER OPERATOR Primary Care Provider [phone] Reason for Visit * Reason Comments Medication Refill Encounter Details Date Type Department Care Team (Late st Contact Info) Description 11/28/2021 Refill [facility] Medical [facility] - Neurology [facility] #2 [place] [address] Mac Sher MD #2 [place] [address] Medication Refill Social History Tobacco Use Types [...] COVID-19? No / Unsure 11/30/2021 10:22 AM TRANSMITTER TESTER documented as of this encounter Plan of Treatment Upcoming Encounters Date Type Department Care Team (Late st Contact Info) Description 04/02/2025 10:30 AM CDT Office Visit [facility]IAN GROUP UROLOGY #2 [place] [address] Sundar Tristan MD #2 [facility] [address] [place] [address] 04/03/2025 10:00 AM CDT Office Visit [facility] Medical Group - Gastroenterology - [place] #2 [place] [address] Feliberto Winston MD 2 [facility] [address] [place] [address] 04/03/2025 11:00 AM CDT Office Visit [facility] Medical Group - Neurology - [place] #2 [place] [address] Maryann El APRN, BOX CLOSING MACHINE OPERATOR #2 [facility] [address] 04/22/2025 10:30 AM CDT Office Visit [facility] - Family [facility] #[address] [place] [address] Theodora Berry, FOREIGN LANGUAGE INSTRUCTOR, MOULDER OPERATOR [address] [place] [address] [place] [address] documented as of this encounter Visit Diagnoses Not on filedocumented in this encounter Additional Health Concerns Infection Onset Date Last Indicated Resolved Time COVID - 19 09/03/2024 09/03/2024 09/03/2024 9:25 PM TRANSMITTER TESTER documented as of this encounter Care Teams Security System Engineer Relationship Specialty Start Date End Date Winifred Armstrong APRN, MOULDER OPERATOR [address] [place] [address] PCP - General Advanced Practice Nurse 10/17/19 Micky Dickson MD [address] [place] [address] [address] CASTRO [address] [place] [address] PCP - General Family Medicine 09/25/23 07/04/24 Silva Vicente MD [address] [place] [address] [place] [address] PCP - General Family Medicine 07/05/24 12/29/24 Manisha Galeas MD [address] [place] [address] [address] [place] [address] PCP - General Family Medicine 12/30/24 01/20/25 Thoedora Berry, FOREIGN LANGUAGE INSTRUCTOR, MOULDER OPERATOR [address] [place] [address] [place] [address] PCP - General Advanced Practice Nurse 01/21/25 Mac Sher MD #2 [place] [address] Consulting Physician Neurology 09/15/15 Robert Mae MD #2 [place] [address] Consulting Physician Pulmonary Disease 10/27/22 Maryann El APRN, BOX CLOSING MACHINE OPERATOR #2 [place] [address] Nurse Practitioner Advanced Practice Nurse 12/21/22 Germania Navarro APRN, MOULDER OPERATOR #2 [place] [address] Nurse Practitioner Advanced Practice Nurse 10/04/23 Leny Morales MD #2 [place] [address] Consulting Physician Gastroenterology 01/19/23 documented as of this encounter
--- OUTSIDE RECORDS SUMMARY | 2025-03-26 09:14 | XMS_ITS | Encounter Summary ---
Author Organization [facility] Address [address] [place] [address] Phone Care Team Providers Care Manager Recovery Name Role Phone Mac Sher MD Unavailable Winifred Armstrong DIRECTOR CUSTOMER, ACETYLENE CUTTER Primary Care Provider Micky Dickson MD Primary Care Provider Robert Mae MD Unavailable Maryann El DIRECTOR CUSTOMER, [facility] Unavailable + [phone] Germania Navarro APRN, ACETYLENE CUTTER Unavailable Leny Morales MD Unavailable [phone] Silva Vicente MD Primary Care Provider [phone] Manisha Galeas MD Primary Care Provider [phone] Theodora Berry DIRECTOR CUSTOMER, ACETYLENE CUTTER Primary Care Provider [phone] Reason for Referral * Radiology Services (Routine) - Closed Specialty Diagnoses / Procedures Referred By Jo Ann sandoval Referred To Contact Radiology Diagnoses Pre-op testing Procedures EKG 12 LEAD Manuel Ventura MD Phone: tel: fax: Referral ID Status Reason Start Date Expiration Date Visits Re quested Visits Authorized [id number] Closed 09/14/2020 1 1 WAREHOUSING MANAGER * Radiology Services (Routine) - Closed Specialty Diagnoses / Procedures Referred By Jo Ann sandoval Referred To Contact Radiology Diagnoses Pre-op testing Procedures XR CHEST 2 VIEWS Manuel Ventura MD Phone: tel: fax: Referral ID Status Reason Start Date Expiration Date Visits Re quested Visits Authorized [id number] Closed 09/14/2020 1 1 WAREHOUSING MANAGER Encounter Details Date Type Department Care Team (Latest Contact Info) Description 09/14/2020 Transcribe Orders [facility] Preop/Pacu II 1 [place] [phone] Manuel Ventura MD [facility] [place] [address] Pre-op testing (Primary Dx) Social History Tobacco [...] COVID-19? No / Unsure 09/14/2020 2:24 PM DATA WAREHOUSING MANAGER documented as of this encounter Plan of Treatment Upcoming Encounters Date Type Department Care Team (Late st Contact Info) Description 04/02/2025 10:30 AM CDT Office Visit [facility] #2 [place] [address] Sundar Tristan MD #2 [facility] [address] [place] [address] 04/03/2025 10:00 AM CDT [facility]ology - [place] #2 [facility] [place] [address] Feliberto Winston MD 2 [facility] [address] [place] [address] 04/03/2025 11:00 AM CDT Office Visit [facility] - Neurology - [place] #2 [facility] [place] [address] Maryann El M, DIRECTOR CUSTOMER, HYPERION ANALYST #2 [place] [address] 04/22/2025 10:30 AM CDT Office Visit [facility] Medical [facility] - Family Medicine - [place] #2 [facility] [address] Theodora Berry, DIRECTOR CUSTOMER, ACETYLENE CUTTER 2 [facility]. [address] [place] [address] documented as of this encounter Results * SARS-COV-2 BY MOLECULAR (09/27/2020 10:31 AM DATA WAREHOUSING MANAGER) SARSCOV2 NOT DETECTED (Referenc e Range for this test is Not Detected) [facility] THERMO[facility] FAST DX 09/28/2020 8:48 AM [address] [facility] Swab NASOPHARYNGEAL STRUCTURE / Unknown Non-Phlebotomy Collection / Unknown 09/27/2020 10:31 AM DATA WAREHOUSING MANAGER 09/27/2020 11:53 AM DATA WAREHOUSING MANAGER Narrative [facility] - 09/28/2020 8:48 AM DATA WAREHOUSING MANAGER Authorized Fact Sheets about this test for providers and patients are available at: https://www.fda.gov/medical-devices/idsiaqbhi-kcgexsiwet-xppoldj-devices/emergen cy-us e-authorizations us Manuel Ventura MD MICROBIOLOGY - GENERAL ORDERABLE S Final Result Performing Organization Address City/[facility]/ZIP Co de Phone Number [facility] [address] [place] [address], [place] * EKG 12 LEAD (09/15/2020 9:38 AM DATA WAREHOUSING MANAGER) Ventricular Rate BPM EXTERNAL EKG Atrial Rate BPM EXTERNAL EKG P-R Interval 158 ms EXTERNAL EKG QRS Duration 80 ms EXTERNAL EKG Q-T Duration 418 ms EXTERNAL EKG QTC CALCULATION 418 ms EXTERNAL EKG P [place] 61 degrees EXTERNAL EKG R [place] 63 degrees EXTERNAL EKG T [place] 56 degrees EXTERNAL EKG 09/15/2020 9:38 AM DATA WAREHOUSING MANAGER Impressions EXTERNAL EKG - 09/15/2020 3:36 PM DATA WAREHOUSING MANAGER Sinus rhythm Within normal limits as previously Comparison Summary: No significant change Summary: Normal ECG Compared with:10/17/2019 2:16 PM; 09/19/2018 12:01 PM; 02/16/2016 10:31 AM Confirmed by Zena Corea on 09/15/2020 3:36:41 PM Narrative Procedure Note Roselia Freitas MD - 09/15/2020 IMPRESSION: Sinus rhythm Within normal limits as previously Comparison Summary: No significant change Summary: Normal ECG Compared with:10/17/2019 2:16 PM; 09/19/2018 12:01 PM; 02/16/2016 10:31AM Confirmed by Zena Murry [id number] on 09/15/2020 3:36:41 PM us Manuel Ventura MD IMG ECG ORDERABLES Final Result Performing Organization Address City/[facility]/ZIP Co de Phone Number EXTERNAL EKG * XR CHEST 2 VIEWS (09/15/2020 9:25 AM DATA WAREHOUSING MANAGER) Anatomical Region Laterality Modality Chest N/A Digital Radiogra phy 09/15/2020 7:58 PM DATA WAREHOUSING MANAGER Impressions 09/15/2020 8:01 PM DATA WAREHOUSING MANAGER IMPRESSION: 1. Hyperinflated lungs with flattening of the hemidiaphragms and upper lobe predominant pulmonary emphysema with moderate biapical pleuroparenchymal scarring. No focal consolidation. Normal heart size. Narrative 09/15/2020 8:01 PM DATA WAREHOUSING MANAGER EXAM DESCRIPTION: XR CHEST 2 VIEWS REASON [...] signed by Rito Francois : Report ID: [id number] Reading Location: [id number] Procedure Note Rito Francois MD - 09/15/2020 [...] signed by Rito Francois : Report ID: [id number] Reading Location: [id number] IMPRESSION: 1. Hyperinflated lungs with flattening of the hemidiaphragms and upper lobe predominant pulmonary emphysema with moderate biapical pleuroparenchymal scarring. No focal consolidation. Normal heart size. Manuel Ventura MD IMG DIAGNOSTIC ORDERABLES Final Result * (ABNORMAL) CMP (COMPREHENSIVE METABOLIC PANEL) (09/15/2020 9:03 AM DATA WAREHOUSING MANAGER) SODIUM 143 136 - 144 mmol/L 09/15/2020 11:37 AM [facility] POTASSIUM 4.4 3.5 - 5.1 mmol/L 09/15/2020 11:37 AM [facility] CHLORIDE 108 100 - 110 mmol/L 09/15/2020 11:37 AM [facility] CO2, VENOUS 24 22 - 32 mmol/L 09/15/2020 11:37 AM [facility] ANION GAP 15.4 8.0 - 20.0 mmol/L 09/15/2020 11:37 AM [facility] GLUCOSE 78 70 - 99 mg/dL 09/15/2020 11:37 AM [facility] BUN 11 8 - 23 mg/dL 09/15/2020 11:37 AM [facility] CREATININE, BLOOD 0.85 0.60 - 1.10 mg/dL 09/15/2020 11:37 AM [facility] BUN/CREATININE RATIO 13 12 - 20 ratio 09/15/2020 11:37 AM [facility] TOTAL PROTEIN 6.6 6.0 - 8.3 g/dL 09/15/2020 11:37 AM [facility] ALBUMIN 4.6 3.5 - 5.2 g/dL 09/15/2020 11:37 AM [facility] Comment: The colormetric methods used for the determination of Albumin may lead to falsely elevated test results in patients suffering from renal failure or insufficiency due to interference with other proteins. A/G RATIO 2.3(H) 1.0 - 2.0 09/15/2020 11:37 AM DATA WAREHOUSING MANAGER [facility] CALCIUM 9.6 8.9 - 10.3 mg/dL 09/15/2020 11:37 AM DATA WAREHOUSING MANAGER [facility] T BILI 0.3 <=1.2 mg/dL 09/15/2020 11:37 AM DATA WAREHOUSING MANAGER [facility] SGOT (AST) 15 <=32 U/L 09/15/2020 11:37 AM DATA WAREHOUSING MANAGER [facility] SGPT (ALT) 13 <=33 U/L 09/15/2020 11:37 AM DATA WAREHOUSING MANAGER [facility] ALKALINE PHOSPHATASE 58 35 - 105 U/L 09/15/2020 11:37 AM DATA WAREHOUSING MANAGER [facility] GFR, EST. NONAFRICAN >60 >=60 09/15/2020 11:37 AM DATA WAREHOUSING MANAGER [facility] GFR, EST. >60 >=60 020 11:37 AM DATA WAREHOUSING MANAGER [facility] Comment: Creatinine Clearance is the preferred criteria for selecting drug dose adjustments in renally impaired patients. The GFR is provided as additional pertinent clinical information. GFR is reported in mL/min/1.73 sq m. IS THE PATIENT REQUIRED TO BE FASTING? No 09/15/2020 11:37 AM [facility] Blood Venipuncture / Unknown 09/15/2020 9:03 AM DATA WAREHOUSING MANAGER 09/15/2020 10:35 AM DATA WAREHOUSING MANAGER us Manuel Ventura MD CHEMISTRY ORDERABLES Final Resul t [facility] #1 [place] [address] documented in this encounter Visit Diagnoses Diagnosis Pre-op testing- Primary Preoperative examination, unspecified Pre-op testing Preoperative examination, unspecified Pre-op testing Preoperative examination, unspecified documented in this encounter Additional Health Concerns Infection Onset Date Last Indicated Resolved Time COVID - 06/23/2021 06/23/2021 06/29/2021 9:24 PM CDT COVID - 19 09/03/2024 09/03/2024 09/03/2024 9:25 PM DATA WAREHOUSING MANAGER documented as of this encounter Care Teams Manager Recovery Relationship Specialty Start Date End Date PattiEtienneWinifredaguilar Sosa APRN, ACETYLENE CUTTER [address] [place] [address] PCP - General Advanced Practice Nurse 10/17/19 Micky Dickson MD [address] [facility] [address] [place] [address] PCP - General Family Medicine 09/25/23 07/04/24 Silva Vicente MD [address] [facility] [address] [place], [place] [address] [address] PCP - General Family Medicine 07/05/24 12/29/24 Manisha Galeas MD [address] [place] [address] DR CASTR[address] [place] [address] PCP - General Family Medicine 12/30/24 01/20/25 Theodora Berry APRN, ACETYLENE CUTTER [address] [address] PCP - General Advanced Practice Nurse 01/21/25 Mac Sher MD #2 [place] [address] Consulting Physician Neurology 09/15/15 Robert Mae MD #2 [place] [address] Consulting Physician Pulmonary Disease 10/27/22 Maryann El APRN, HYPERION ANALYST #2 [place] [address] Nurse Practitioner Advanced Practice Nurse 12/21/22 Germania Navarro APRN, ACETYLENE CUTTER #2 [place] [address] Nurse Practitioner Advanced Practice Nurse 10/04/23 Leny Morales MD #2 [place] [address] Consulting Physician Gastroenterology 01/19/23 documented as of this encounter
--- OUTSIDE RECORDS SUMMARY | 2025-03-26 09:14 | XMS_ITS | Encounter Summary ---
Author Organization [facility] Address [address] [place] [address] Phone Care Team Providers Care Sports Bookmaker Name Role Phone Mac Sher MD Unavailable [phone] Winifred Armstrong FLORAL DESIGNER SALESPERSON, SENIOR MERCHANDISER Primary Care Provider Micky Dickson MD Primary Care Provider [phone] Robert Mae MD Unavailable Maryann El APRN, [facility] Unavailable + [phone] Germania Navarro APRN, SENIOR MERCHANDISER Unavailable Leny Morales MD Unavailable [phone] Silva Vicente MD Primary Care Provider [phone] Manisha Galeas MD Primary Care Provider [phone] Theodora Berry FLORAL DESIGNER SALESPERSON, SENIOR MERCHANDISER Primary Care Provider [phone] Reason for Visit * Reason Comments Medication Refill Encounter Details Date Type Department Care Team (Late st Contact Info) Description 03/15/2023 Refill [facility] Medical [facility] - Neurology [facility] #2 [place] [address] Mac Sher MD #[address] [place] [address] Medication Refill Social History Tobacco Use Types [...] Dept 03/01/23 Procedure Visit Mac Sher MD [place] [facility] 02/20/23 Office Visit Maryann El APRN, FRONT END DEVELOPER DESIGNER [place] [facility] 12/21/22 Office Visit Maryann El APRN, FRONT END DEVELOPER DESIGNER [place] [facility] 12/09/22 Procedure Visit Mac [facility] MD [facility] 09/02/22 Procedure Visit Mac Sher MD [facility] Neurology [facility] [address] 06/10/22 Procedure Visit Mac Sher MD [facility] Neurology [facility] 03/18/22 Procedure Visit Mac Sher MD [facility] Neurology [facility] Showing recent visits within past 365 days and meeting all other requirements Future Appointments Date Type Provider Dept 03/30/23 Appointment Mac Sher MD [facility] Neurology [facility] 05/23/23 Appointment Maryann El APRN, [facility] 05/26/23 Appointment Mac Sher, [facility] Showing future appointments within next 90 days and meeting all other requirements documented in this encounter Plan of Treatment Upcoming Encounters Date Type Department Care Team (Late st Contact Info) Description 04/02/2025 10:30 AM CDT Office Visit [facility] #2 [place] [address] Sundar Tristan MD #2 [facility] [address] [place] [address] 04/03/2025 10:00 AM CDT Office Visit [facility] Medical Group - Gastroenterology - [place] #2 [place] [address] Fleiberto Winston MD 2 [facility] [address] [place] [address] 04/03/2025 11:00 AM CDT Office Visit [facility] Group - Neurology - [place] #2 [place] [address] Maryann El APRN, FRONT END DEVELOPER DESIGNER #2 [facility] [place] [place] [address] 04/22/2025 10:30 AM CDT Office Visit [facility] - Family [facility] - [place] #[address] [place] [address] Theodora Berry, FLORAL DESIGNER SALESPERSON, SENIOR MERCHANDISER [address] [place] [address] [place] [address] documented as of this encounter Visit Diagnoses Not on filedocumented in this encounter Additional Health Concerns Infection Onset Date Last Indicated Resolved Time COVID - 19 09/03/2024 09/03/2024 09/03/2024 9:25 PM DELIVERY SUPERVISOR documented as of this encounter Care Teams Sports Bookmaker Relationship Specialty Start Date End Date Winifred Armstrong APRN, SENIOR MERCHANDISER [address] [place] [address] PCP - General Advanced Practice Nurse 10/17/19 Micky Dickson MD [address] [place] [address] DR CASTR[address] [place] [address] PCP - General Family Medicine 09/25/23 07/04/24 Silva Vicente MD [address] [place] [address] DR [address]STR[address] [place], [place] [address], [place] [address] PCP - General Family Medicine 07/05/24 12/29/24 Manisha Galeas MD [address] [place] [address] [place] [address] PCP - General Family Medicine 12/30/24 01/20/25 Theodora Berry, FLORAL DESIGNER SALESPERSON, SENIOR MERCHANDISER [address] [facility] [facility] [address] [place] [address] PCP - General Advanced Practice Nurse 01/21/25 Mac Sher MD #2 [place] [address] Consulting Physician Neurology 09/15/15 Robert Mae MD #2 [place] [address] Consulting Physician Pulmonary Disease 10/27/22 Maryann El APRN, FRONT END DEVELOPER DESIGNER #[address] [place] [address] Nurse Practitioner Advanced Practice Nurse 12/21/22 Germania Navarro APRN, SENIOR MERCHANDISER #2 [place] [address] Nurse Practitioner Advanced Practice Nurse 10/04/23 Leny Morales MD #[address] [place] [address] Consulting Physician Gastroenterology 01/19/23 documented as of this encounter
--- OUTSIDE RECORDS SUMMARY | 2025-03-26 09:14 | XMS_ITS | Encounter Summary ---
Author Organization [facility] Address [address] [place] [address] Phone Care Team Providers Care Commissioned Police Officer Name Role Phone Mac Sher MD Unavailable [phone] Micky Dickson MD Primary Care Provider [phone] Robert Mae MD Unavailable Maryann El APRN, [facility] Unavailable + [phone] Germania Navarro APRN, SUPERVISOR GRAPHITE Unavailable Leny Morales MD Unavailable [phone] Silva Vicente MD Primary Care Provider [phone] Manisha Galeas MD Primary Care Provider [phone] Theodora Berry PLANT MAINTENANCE MANAGER, SUPERVISOR GRAPHITE Primary Care Provider [phone] Reason for Visit * Reason Comments Medication Refill Encounter Details Date Type Department Care Team (Late st Contact Info) Description 11/24/2023 Refill [facility] - [place] #2 [place] [address] Leny Morales MD #2 [place] [address] Medication Refill Social History Tobacco Use Types [...] Monica Marcelo RN - 11/24/2023 3:07 PM HEAD OF CYTOGENETICS Medication refilled and signed per [facility] medication standing order for pediatric and adult patients. OF CYTOGENETICS documented in this encounter Plan of Treatment Upcoming Encounters Date Type Department Care Team (Late st Contact Info) Description 04/02/2025 10:30 AM CDT Office Visit [facility] #2 [place] [address] Sundar Tristan MD #2 [facility] [address] [place] [address] 04/03/2025 10:00 AM CDT Office Visit [facility] Medical [facility] - Gastroenterology [facility] #2 [place] [address] Feliberto Winston MD 2 [facility] [address] [place] [address] 04/03/2025 11:00 AM CDT Office Visit [facility] Medical [facility] - Neurology - [place] #2 [place] [address] Maryann El APRN, EXCEPTIONAL CHILDREN TEACHER #[address] [place] [address] 04/22/2025 10:30 AM CDT Office Visit [facility] - Family [facility] - [place] #[address] [place] [address] Theodora Berry, CESAR, SUPERVISOR GRAPHITE 2 [facility] [address] [facility] [address] [place] [address] documented as of this encounter Visit Diagnoses Not on filedocumented in this encounter Additional Health Concerns Infection Onset Date Last Indicated Resolved Time COVID - 19 09/03/2024 09/03/2024 09/03/2024 9:25 PM HEAD OF CYTOGENETICS documented as of this encounter Care Teams Commissioned Police Officer Relationship Specialty Start Date End Date Micky Dickson MD [address] [place] [address] DR [address]STR[address] [place] [address] PCP - General Family Medicine 09/25/23 07/04/24 Silva Vicente MD [address] [place] [address] [place] [address] PCP - General Family Medicine 07/05/24 12/29/24 Manisha Galeas MD [address] [place] [address] DR [address]STR[address] [place] [address] PCP - General Family Medicine 12/30/24 01/20/25 Theodora Berry, CESAR, SUPERVISOR GRAPHITE 2 [facility] [address] [facility] [address] [place] [address] PCP - General Advanced Practice Nurse 01/21/25 Mac Sher MD #[address] [place] [address] Consulting Physician Neurology 09/15/15 Robert Mae MD #2 [place] [address] Consulting Physician Pulmonary Disease 10/27/22 Maryann El APRN, EXCEPTIONAL CHILDREN TEACHER #2 [place] [address] Nurse Practitioner Advanced Practice Nurse 12/21/22 Germania Navarro APRN, SUPERVISOR GRAPHITE #2 [place] [address] Nurse Practitioner Advanced Practice Nurse 10/04/23 Leny Morales MD #2 [place] [address] Consulting Physician Gastroenterology 01/19/23 documented as of this encounter
--- OUTSIDE RECORDS SUMMARY | 2025-03-26 09:14 | XMS_ITS | Encounter Summary ---
Author Organization [facility] Address [address] [place] [address] Phone Care Team Providers Care Farmworker Fryer Farm Name Role Phone Mac Sher MD Unavailable [phone] Micky Dickson MD Primary Care Provider [phone] Robert Mae MD Unavailable Maryann El APRN, MANAGER PRODUCT Unavailable + [phone] Germania Navarro APRN, SUPPLY TECHNICIAN Unavailable Leny Morales MD Unavailable [phone] Silva Vicente MD Primary Care Provider [phone] Manisha Galeas MD Primary Care Provider [phone] Theodora Berry BUSINESS ADMINISTRATION TEACHER, SUPPLY TECHNICIAN Primary Care Provider Reason for Visit * Reason Comments Medication Refill Encounter Details Date Type Department Care Team (Late st Contact Info) Description 10/21/2023 Refill [facility] - [place] #2 [place] [address] Germania Navarro APRN, SUPPLY TECHNICIAN #[address] [place] [address] Medication Refill Social History Tobacco Use Types [...] Monica Marcelo RN - 10/24/2023 10:08 AM PROJECT INSPECTOR Medication refilled and signed per [facility] chronic medication standing order for pediatric and adult patients. ECT INSPECTOR documented in this encounter Plan of Treatment Upcoming Encounters Date Type Department Care Team (Late st Contact Info) Description 04/02/2025 10:30 AM CDT Office Visit [facility] #2 [place] [address] Sundar Tristan MD #2 [facility] [address] [place] [address] 04/03/2025 10:00 AM CDT Office Visit [facility] Medical Group - Gastroenterology - [place] #2 [place] [address] Feliberto Winston MD 2 [facility] [address] [place] [address] 04/03/2025 11:00 AM CDT Office Visit [facility] Medical Group - Neurology - [place] #2 [place] [address] Maryann El, BUSINESS ADMINISTRATION TEACHER, MANAGER PRODUCT #[address] [place] [address] 04/22/2025 10:30 AM CDT Office Visit [facility] - Family [facility] - [place] #[address] [place] [address] Theodora Berry, CESAR, SUPPLY TECHNICIAN 2 [facility] [facility] [place] [address] documented as of this encounter Visit Diagnoses Not on filedocumented in this encounter Additional Health Concerns Infection Onset Date Last Indicated Resolved Time COVID - 19 09/03/2024 09/03/2024 09/03/2024 9:25 PM PROJECT INSPECTOR documented as of this encounter Care Teams Farmworker Fryer Farm Relationship Specialty Start Date End Date Micky Dickson MD [address] [place] [address] DR [address] [place] [address] PCP - General Family Medicine 09/25/23 07/04/24 Silva Vicente MD [address] [place] [address] [address] [place] [address] PCP - General Family Medicine 07/05/24 12/29/24 Manisha Galeas MD [address] [place] [address] [address] [place] [address] PCP - General Family Medicine 12/30/24 01/20/25 Theodora Berry, CESAR, SUPPLY TECHNICIAN [address] [facility] [facility] [address] [address] PCP - General Advanced Practice Nurse 01/21/25 Mac Sher MD #2 [place] [address] Consulting Physician Neurology 09/15/15 Robert Mae MD #2 [place] [address] Consulting Physician Pulmonary Disease 10/27/22 Maryann El APRN, MANAGER PRODUCT #2 [place] [address] Nurse Practitioner Advanced Practice Nurse 12/21/22 Germania Navarro APRN, SUPPLY TECHNICIAN #2 [place] [address] Nurse Practitioner Advanced Practice Nurse 10/04/23 Leny Morales MD #2 [place] [address] Consulting Physician Gastroenterology 01/19/23 documented as of this encounter
--- OUTSIDE RECORDS SUMMARY | 2025-03-26 09:14 | XMS_ITS | Encounter Summary ---
Author Organization [facility] Address [address] [place] [address] Phone Care Team Providers Care Em Physician Name Role Phone Mac Sher MD Unavailable Winifred Armstrong CONTRACT PROGRAMMER, MOTOR AND CHASSIS INSPECTOR Primary Care Provider Micky Dickson MD Primary Care Provider [phone] Robert Mae MD Unavailable Maryann El APRN, [facility] Unavailable + [phone] Germania Navarro APRN, MOTOR AND CHASSIS INSPECTOR Unavailable Leny Morales MD Unavailable [phone] Silva Vicente MD Primary Care Provider [phone] Manisha Galeas MD Primary Care Provider Theodora Berry CONTRACT PROGRAMMER, MOTOR AND CHASSIS INSPECTOR Primary Care Provider [phone] Reason for Visit * Reason Comments Medication Refill Encounter Details Date Type Department Care Team (Late st Contact Info) Description 06/07/2022 Refill [facility] - Neurology [facility] #2 [place] [address] Mac Sher MD #2 [place] [address] Medication Refill Social History Tobacco Use Types [...] Description 04/02/2025 10:30 AM CDT Office Visit [facility] UROLOGY #2 [place] [address] Sundar Tristan MD #2 [facility] [address] [place] [address] 04/03/2025 10:00 AM CDT Office Visit [facility] Medical Group - Gastroenterology - [place] #2 [place] [address] Feliberto Winston MD 2 [facility] [address] [place] [address] 04/03/2025 11:00 AM CDT [facility] - [place] #2 [place] [address] Maryann El APRN, RAILCAR SWITCHER #2 [facility] [place] [address] 04/22/2025 10:30 AM CDT Office Visit [facility] - Family [facility] - [place] #[address] [place] [address] Theodora Berry, CONTRACT PROGRAMMER, MOTOR AND CHASSIS INSPECTOR [address] [facility] [address] [place] [address] documented as of this encounter Visit Diagnoses Not on filedocumented in this encounter Additional Health Concerns Infection Onset Date Last Indicated Resolved Time COVID - 19 09/03/2024 09/03/2024 09/03/2024 9:25 PM TOBACCO EDUCATOR documented as of this encounter Care Teams Em Physician Relationship Specialty Start Date End Date Winifred Armstrong APRN, MOTOR AND CHASSIS INSPECTOR [address] [place] [address] PCP - General Advanced Practice Nurse 10/17/19 Micky Dickson MD [address] [place] [address] DR CASTRO [address] [place] [address] PCP - General Family Medicine 09/25/23 07/04/24 Silva Vicente MD [address] [place] [address] [place] [address] PCP - General Family Medicine 07/05/24 12/29/24 Manisha Galeas MD [address] [place] [address] [place] [address] PCP - General Family Medicine 12/30/24 01/20/25 Theodora Berry, CONTRACT PROGRAMMER, MOTOR AND CHASSIS INSPECTOR 2 [facility] [address] [place] [address] PCP - General Advanced Practice Nurse 01/21/25 Mac Sher MD #2 [place] [address] Consulting Physician Neurology 09/15/15 Robert Mae MD #2 [place] [address] Consulting Physician Pulmonary Disease 10/27/22 Maryann El APRN, RAILCAR SWITCHER #2 [place] [address] Nurse Practitioner Advanced Practice Nurse 12/21/22 Germania Navarro APRN, MOTOR AND CHASSIS INSPECTOR #[address] [place] [address] Nurse Practitioner Advanced Practice Nurse 10/04/23 Leny Morales MD #2 [place] [address] Consulting Physician Gastroenterology 01/19/23 documented as of this encounter
--- OUTSIDE RECORDS SUMMARY | 2025-03-26 09:14 | XMS_ITS | Encounter Summary ---
Author Organization [facility] Address [address] [place] [address] Phone Care Team Providers Care Player Development Manager Name Role Phone Mac Sher MD Unavailable [phone] Winifred Armstrong TELEPHONE BETTING CLERK, WELD FITTER Primary Care Provider Micky Dickson MD Primary Care Provider Robert Mae MD Unavailable Maryann El APRN, [facility] Unavailable + [phone] Germania Navarro APRN, WELD FITTER Unavailable Leny Morales MD Unavailable [phone] Silva Vicente MD Primary Care Provider [phone] Manisha Galeas MD Primary Care Provider [phone] Theodora Berry TELEPHONE BETTING CLERK, WELD FITTER Primary Care Provider [phone] Encounter Details Date Type Department Care Team (Latest Contact Info) Description 08/30/2022 Transcribe Orders [facility] Patient Access Admitting 1 [place] [address] Manuel Ventura MD [address] [place] [address] Pseudoclaudication syndrome (Primary Dx) Social History Tobacco [...] Coronavirus/COVID-19? No / Unsure 09/02/2022 9:40 AM JUNIOR PROJECT COORDINATOR documented as of this encounter Plan of Treatment Upcoming Encounters Date Type Department Care Team (Late st Contact Info) Description 04/02/2025 10:30 AM CDT Office Visit [facility] UR[facility]Y #[address] [place] [address] Sundar Tristan MD #2 [facility] [address] [place] [address] 04/03/2025 10:00 AM CDT Office Visit [facility] - Gastroenterology - [place] #2 [place] [address] Feliberto Winston MD 2 [facility] [address] [place] [address] 04/03/2025 11:00 AM CDT [facility] - [place] #[address] [place] [address] Maryann El APRN, LEADITE MAN #2 [place] [address] 04/22/2025 10:30 AM CDT Office Visit [facility] - Family Medicine - [place] #[address] [place] [address] Theodora Berry N, TELEPHONE BETTING CLERK, WELD FITTER [address] [facility] [facility] [place] [place] [address] documented as of this encounter Results * ERYTHROCYTE SEDIMENTATION RATE (ESR) (08/30/2022 10:10 AM JUNIOR PROJECT COORDINATOR) ESR (SED RATE, ERYTHROCYTE SEDIMENTATION RATE) <1 <30 mm/h 08/30/2022 10:20 AM JUNIOR PROJECT COORDINATOR [facility] Comment: Patients presenting with increased level of fibrinogen, gamma globulins, or abnormally shaped RBCs could affect the results for the erythrocyte sedimentation rate (ESR). Results should be clinically correlated. Blood Venipuncture / Unknown 08/30/2022 10:10 AM JUNIOR PROJECT COORDINATOR 08/30/2022 10:14 AM JUNIOR PROJECT COORDINATOR us Manuel Ventura MD HEMATOLOGY ORDERABLES Final Resu lt Performing Organization Address City/[facility]/ZIP Co de Phone Number [facility] #[address] [place] [address] * C-REACTIVE PROTEIN (CRP) QUANT (08/30/2022 10:10 AM JUNIOR PROJECT COORDINATOR) C-REACTIVE PROTEIN <=0.30 <0.50 mg/dL 08/30/2022 11:58 AM JUNIOR PROJECT COORDINATOR [facility] Blood Venipuncture / Unknown 08/30/2022 10:10 AM JUNIOR PROJECT COORDINATOR 08/30/2022 10:14 AM JUNIOR PROJECT COORDINATOR us Manuel Ventura MD CHEMISTRY ORDERABLES Final Resul t [facility] #[address] [place] [address] * (ABNORMAL) CMP (COMPREHENSIVE METABOLIC PANEL) (08/30/2022 10:10 AM [facility]) SODIUM 134(L) 136 - 144 mmol/L 08/30/2022 10:44 AM [facility] POTASSIUM 4.2 3.5 - 5.1 mmol/L 08/30/2022 10:44 AM [facility] CHLORIDE 101 100 - 110 mmol/L 08/30/2022 10:44 AM [facility] CO2, VENOUS 25 22 - 32 mmol/L 08/30/2022 10:44 AM [facility] ANION GAP 12.2 8.0 - 20.0 mmol/L 08/30/2022 10:44 AM [facility] GLUCOSE 98 70 - 99 mg/dL 08/30/2022 10:44 AM [facility] BUN 17 8 - 23 mg/dL 08/30/2022 10:44 AM [facility] CREATININE, BLOOD 0.80 0.60 - 1.10 mg/dL 08/30/2022 10:44 AM [facility] BUN/CREATININE RATIO 21(H) 12 - 20 ratio 08/30/2022 10:44 AM [facility] TOTAL PROTEIN 6.5 6.0 - 8.3 g/dL 08/30/2022 10:44 AM [facility] ALBUMIN 4.3 3.5 - 5.2 g/dL 08/30/2022 10:44 AM [facility] Comment: The colormetric methods used for the determination of Albumin may lead to falsely elevated test results in patients suffering from renal failure or insufficiency due to interference with other proteins. A/G RATIO 2.0 1.0 - 2.0 08/30/2022 10:44 AM [facility] CALCIUM 9.8 8.9 - 10.3 mg/dL 08/30/2022 10:44 AM [facility] T BILI <0.3 <=1.2 mg/dL 08/30/2022 10:44 AM JUNIOR PROJECT COORDINATOR [facility] SGOT (AST) 14 <=32 U/L 08/30/2022 10:44 AM JUNIOR PROJECT COORDINATOR [facility] SGPT (ALT) 15 <=41 U/L 08/30/2022 10:44 AM JUNIOR PROJECT COORDINATOR [facility] ALKALINE PHOSPHATASE 69 35 - 105 U/L 08/30/2022 10:44 AM JUNIOR PROJECT COORDINATOR [facility] IS THE PATIENT REQUIRED TO BE FASTING? No 08/30/2022 10:44 AM JUNIOR PROJECT COORDINATOR [facility] GFR, ESTIMATED >60 >=60 08/30/2022 10:44 AM JUNIOR PROJECT COORDINATOR [facility] Comment: Creatinine Clearance is the preferred criteria for selecting drug dose adjustments in renally impaired patients. The GFR is provided as additional pertinent clinical information. GFR is reported in mL/min/1.73 sq m. Calculation based on the Chronic Kidney Disease Epidemiology Collaboration (CKD- EPI) equation refit without adjustment for race. GFR, EST. >60 >=60 022 10:44 AM JUNIOR PROJECT COORDINATOR [facility] GFR, EST. NONAFRICAN >60 >=60 08/30/2022 10:44 AM [facility] Blood Venipuncture / Unknown 08/30/2022 10:10 AM JUNIOR PROJECT COORDINATOR 08/30/2022 10:14 AM JUNIOR PROJECT COORDINATOR us Manuel Ventura MD CHEMISTRY ORDERABLES Final Resul t [facility] #[address] [place] [address] documented in this encounter Visit Diagnoses Diagnosis Pseudoclaudication syndrome- Primary Spinal stenosis, lumbar region, with neurogenic claudication documented in this encounter Additional Health Concerns Infection Onset Date Last Indicated Resolved Time COVID - 19 09/03/2024 09/03/2024 09/03/2024 9:25 PM JUNIOR PROJECT COORDINATOR documented as of this encounter Care Teams Player Development Manager Relationship Specialty Start Date End Date Winifred Armstrong, TELEPHONE BETTING CLERK, WELD FITTER [address] [place] [address] PCP - General Advanced Practice Nurse 10/17/19 Micky Dickson MD [address] [place] [address] [address]STR[address] [place] [address] PCP - General Family Medicine 09/25/23 07/04/24 Silva Vicente MD [address] [place] [address] [address]STR[address] [place] [address] PCP - General Family Medicine 07/05/24 12/29/24 Manisha Galeas MD [address] [facility] [address] [place] [address] PCP - General Family Medicine 12/30/24 01/20/25 Theodora Berry, TELEPHONE BETTING CLERK, WELD FITTER 2 [facility] [address] [address] PCP - General Advanced Practice Nurse 01/21/25 Mac Sher MD #2 [place] [address] Consulting Physician Neurology 09/15/15 Robert Mae MD #2 [place] [address] Consulting Physician Pulmonary Disease 10/27/22 Maryann El, TELEPHONE BETTING CLERK, LEADITE MAN #2 [place] [address] Nurse Practitioner Advanced Practice Nurse 12/21/22 Germania Navarro APRN, WELD FITTER #2 [place] [address] Nurse Practitioner Advanced Practice Nurse 10/04/23 Leny Morales MD #2 [place] [address] Consulting Physician Gastroenterology 01/19/23 documented as of this encounter
--- OUTSIDE RECORDS SUMMARY | 2025-03-26 09:14 | XMS_ITS | Encounter Summary ---
Author Organization [facility] Address [address] [place] [address] Phone Care Team Providers Care Window Shade Cutter And Mounter Name Role Phone Mac Sher MD Unavailable [phone] Micky Dickson MD Primary Care Provider [phone] Robert Mae MD Unavailable Maryann El APRN, INDUSTRIAL RELATIONS WORKER Unavailable + [phone] Germania Navarro APRN, CUSTOMER SUCCESS SPECIALIST Unavailable Leny Morales MD Unavailable [phone] Silva Vicente MD Primary Care Provider [phone] Manisha Galeas MD Primary Care Provider [phone] Theodora Berry MEDICAL TRANSCRIPTION RADIOLOGY, CUSTOMER SUCCESS SPECIALIST Primary Care Provider Reason for Visit * Reason Comments Medication Refill Encounter Details Date Type Department Care Team (Late st Contact Info) Description 11/11/2023 Refill [facility] - Neurology - [place] #2 [place] [address] Mac Sher MD #2 [place] [address] Medication Refill Social History Tobacco Use Types [...] Dept 08/25/23 Procedure Visit Mac [facility] [place] 05/26/23 Procedure Visit Mac Sher MD [place] [place] 05/09/23 Telemedicine Mac Sher MD [facility] [place] 03/01/23 Procedure Visit Mac Sher MD [facility] [place] 02/20/23 Office Visit Maryann El APRN, [facility] [place] 12/21/22 Office Visit Maryann El APRN, CNS [facility] [place] 12/09/22 Procedure Visit Mac Sher MD [facility] recent visits within past 365 days and meeting all other requirements Future Appointments Date Type Provider Dept 11/16/23 Appointment Mac Sher MD [facility] Neurology [facility] 11/24/23 Appointment Mac Sher MD [facility] Neurology [facility] Showing future appointments within next 90 days and meeting all other requirements NDERER documented in this encounter Plan of Treatment Upcoming Encounters Date Type Department Care Team (Late st Contact Info) Description 04/02/2025 10:30 AM CDT Office Visit [facility] #2 [place] [address] Sundar Tristan MD #2 [facility] [address] [place] [address] 04/03/2025 10:00 AM CDT Office Visit [facility] Medical Group - Gastroenterology - [place] #[address] [place] [address] Feliberto Winston MD 2 [facility] [address] [place] [address] 04/03/2025 11:00 AM CDT [facility] [place] #[address] [place] [address] Maryann El, MEDICAL TRANSCRIPTION RADIOLOGY, INDUSTRIAL RELATIONS WORKER #2 [place] [address] 04/22/2025 10:30 AM CDT Office Visit [facility] - Family Medicine - [place] #2 [facility] [place] [address] Theodora Berry, MEDICAL TRANSCRIPTION RADIOLOGY, CUSTOMER SUCCESS SPECIALIST 2 [facility]. [address] [place] [address] documented as of this encounter Visit Diagnoses Diagnosis Chronic migraine w/o aura w/o status migrainosus, not intractable Chronic migraine without aura, without mention of intractable migraine without mention of status migrainosus documented in this encounter Additional Health Concerns Infection Onset Date Last Indicated Resolved Time COVID - 19 09/03/2024 09/03/2024 09/03/2024 9:25 PM CALENDERER documented as of this encounter Care Teams Window Shade Cutter And Mounter Relationship Specialty Start Date End Date Micky Dickson MD [address] [facility] [address] [place] [address] PCP - General Family Medicine 09/25/23 07/04/24 Silva Vicente MD [address] [facility] [address] [facility] [address] [place] [address] PCP - General Family Medicine 07/05/24 12/29/24 Manisha Galeas MD [address] [facility] [address] [facility] [address] [place] [address] PCP - General Family Medicine 12/30/24 01/20/25 Theodora Berry, CESAR, CUSTOMER SUCCESS SPECIALIST [address] [address] PCP - General Advanced Practice Nurse 01/21/25 Mac Sher MD #2 [place] [address] Consulting Physician Neurology 09/15/15 Robert Mae MD #2 [place] [address] Consulting Physician Pulmonary Disease 10/27/22 Maryann El APRN, INDUSTRIAL RELATIONS WORKER #2 [place] [address] Nurse Practitioner Advanced Practice Nurse 12/21/22 Germania Navarro APRN, CUSTOMER SUCCESS SPECIALIST #2 [place] [address] Nurse Practitioner Advanced Practice Nurse 10/04/23 Leny Morales MD #2 [place] [address] Consulting Physician Gastroenterology 01/19/23 documented as of this encounter
--- OUTSIDE RECORDS SUMMARY | 2025-03-26 09:14 | XMS_ITS | Encounter Summary ---
Author Organization [facility] Address [address] [place] [address] Phone Care Team Providers Care Cage Operator Name Role Phone Mac Sher MD Unavailable [phone] Winifred Armstrong ANESTHESIOLOGIST ASSISTANT, POLE TRUCK DRIVER Primary Care Provider Micky Dickson MD Primary Care Provider [phone] Robert Mae MD Unavailable Maryann El APRN, [facility] Unavailable + [phone] Germania Navarro APRN, POLE TRUCK DRIVER Unavailable Leny Morales MD Unavailable [phone] Silva Vicente MD Primary Care Provider [phone] Manisha Galeas MD Primary Care Provider [phone] Theodora Berry ANESTHESIOLOGIST ASSISTANT, POLE TRUCK DRIVER Primary Care Provider [phone] Reason for Visit * Reason Comments Medication Refill Encounter Details Date Type Department Care Team (Late st Contact Info) Description 05/19/2023 Refill [facility] - Gastroenterology - [place] #2 [place] [address] Leny Morales MD #2 [place] [address] Medication Refill Social History Tobacco Use Types [...] Visit [facility] #[address] [place] [address] Sundar Tristan MD #[address] [address] 04/03/2025 10:00 AM CDT Office Visit [facility] - Gastroenterology - [place] #2 [place] [address] Feliberto Winston MD 2 [facility] [address] [place] [address] 04/03/2025 11:00 AM CDT [facility] - [place] #2 [facility] [place] [address] Maryann El M, ANESTHESIOLOGIST ASSISTANT, CENA #2 [facility] [place] [address] 04/22/2025 10:30 AM CDT Office Visit [facility] - Family Medicine - [place] #2 [place] [address] Theodora Berry, ANESTHESIOLOGIST ASSISTANT, POLE TRUCK DRIVER 2 [facility]. [address] [place] [address] documented as of this encounter Visit Diagnoses Not on filedocumented in this encounter Additional Health Concerns Infection Onset Date Last Indicated Resolved Time COVID - 19 09/03/2024 09/03/2024 09/03/2024 9:25 PM JOINT CLEANING MACHINE OPERATOR documented as of this encounter Care Teams Cage Operator Relationship Specialty Start Date End Date Winifred Armstrong, ANESTHESIOLOGIST ASSISTANT, POLE TRUCK DRIVER [address] [place] [address] PCP - General Advanced Practice Nurse 10/17/19 Micky Dickson MD [address] [place] [address] [address] [place] [address] PCP - General Family Medicine 09/25/23 07/04/24 Silva Vicente MD [address] [place] [address] [place] [address] PCP - General Family Medicine 07/05/24 12/29/24 Manisha Galeas MD 4 [facility] [address] [place] [address] PCP - General Family Medicine 12/30/24 01/20/25 Theodora Berry, ANESTHESIOLOGIST ASSISTANT, POLE TRUCK DRIVER 2 [facility] [address] [place] [address] PCP - General Advanced Practice Nurse 01/21/25 Mac Sher MD #2 [place] [address] Consulting Physician Neurology 09/15/15 Robert Mae MD #2 [place] [address] Consulting Physician Pulmonary Disease 10/27/22 Maryann El, ANESTHESIOLOGIST ASSISTANT, CENA #[address] [place] [address] Nurse Practitioner Advanced Practice Nurse 12/21/22 Germania Navarro APRN, POLE TRUCK DRIVER #2 [place] [address] Nurse Practitioner Advanced Practice Nurse 10/04/23 Leny Morales MD #2 [place] [address] Consulting Physician Gastroenterology 01/19/23 documented as of this encounter
--- OUTSIDE RECORDS SUMMARY | 2025-03-26 09:14 | XMS_ITS | Encounter Summary ---
Author Organization [facility] Address [address] [place] [address] Phone Care Team Providers Care Drafting Supervisor Name Role Phone Mac Sher MD Unavailable [phone] Winifred Armstrong EXTRUSION PRESS ADJUSTER, JIGSAW OPERATOR Primary Care Provider Micky Dickson MD Primary Care Provider [phone] Robert Mae MD Unavailable Maryann El APRN, [facility] Unavailable + [phone] Germania Navarro APRN, JIGSAW OPERATOR Unavailable Leny Morales MD Unavailable [phone] Silva Vicente MD Primary Care Provider [phone] Manisha Galeas MD Primary Care Provider [phone] Theodora Berry EXTRUSION PRESS ADJUSTER, JIGSAW OPERATOR Primary Care Provider [phone] Reason for Visit * Reason Comments Medication Refill Encounter Details Date Type Department Care Team (Late st Contact Info) Description 09/15/2023 Refill [facility] - [facility]ology - [place] #2 [place] [address] Joann Bowers Juana, PAC [address] [place] [address] Medication Refill Social History Tobacco Use Types [...] Monica Marcelo RN - 09/28/2023 9:20 AM PRESSURE SEALER AND TESTER Patient scheduled an appt for 09/25/2023. Nexium order pended, routing to provider for review due to previous provider is no longer with office. SURE SEALER AND TESTER * Telephone Encounter - Sabina Boogie CMA - 09/25/2023 11:29 AM PRESSURE SEALER AND TESTER Patient called and scheduled for 10/04/23 for medication management SURE SEALER AND TESTER * Telephone Encounter - Amber Davis RN - 09/18/2023 2:02 PM PRESSURE SEALER AND TESTER Per chart review patient was to return to the office around 07/22/23 no appointment scheduled. Please call patient to schedule. SURE SEALER AND TESTER documented in this encounter Plan of Treatment Upcoming Encounters Date Type Department Care Team (Late st Contact Info) Description 04/02/2025 10:30 AM CDT Office Visit [facility] [place] [address] Sundar Tristan MD #2 [facility] [address] [place] [address] 04/03/2025 10:00 AM CDT [facility] [place] #2 [facility] [place] [address] Feliberto Winston MD 2 [facility] [address] [place] [address] 04/03/2025 11:00 AM CDT [facility] - [facility] - [place] #2 [facility] [place] [address] Maryann El APRN, REELING OPERATOR #2 [place] [address] 04/22/2025 10:30 AM CDT [facility] - [place] #2 [place] [address] Theodora Berry APRN, JIGSAW OPERATOR 2 [facility]. [address] [place] [address] documented as of this encounter Visit Diagnoses Not on filedocumented in this encounter Additional Health Concerns Infection Onset Date Last Indicated Resolved Time COVID - 19 09/03/2024 09/03/2024 09/03/2024 9:25 PM PRESSURE SEALER AND TESTER documented as of this encounter Care Teams Drafting Supervisor Relationship Specialty Start Date End Date Winifred Armstrong APRN, JIGSAW OPERATOR [address] [place] [address] PCP - General Advanced Practice Nurse 10/17/19 Micky Dickson MD [address] [facility] [address] [place] [address] PCP - General Family Medicine 09/25/23 07/04/24 Silva Vicente MD [address] [facility] [address] [place] [address] PCP - General Family Medicine 07/05/24 12/29/24 Manisha Galeas MD [address] [facility] [address] [place] [address] PCP - General Family Medicine 12/30/24 01/20/25 Theodora Berry APRN, JIGSAW OPERATOR [address] [address] PCP - General Advanced Practice Nurse 01/21/25 Mac Sher MD #2 [place] [address] Consulting Physician Neurology 09/15/15 Robert Mae MD #2 [place] [address] Consulting Physician Pulmonary Disease 10/27/22 Maryann El APRN, REELING OPERATOR #2 [place] [address] Nurse Practitioner Advanced Practice Nurse 12/21/22 Germania Navarro APRN, JIGSAW OPERATOR #2 [place] [address] Nurse Practitioner Advanced Practice Nurse 10/04/23 Leny Morales MD #2 [place] [address] Consulting Physician Gastroenterology 01/19/23 documented as of this encounter
--- OUTSIDE RECORDS SUMMARY | 2025-03-26 09:14 | XMS_ITS | Encounter Summary ---
Author Organization [facility] Address [address] [place] [address] Phone Care Team Providers Care Software Sales Executive Name Role Phone Mac Sher MD Unavailable Winifred Armstrong LOCKMAKER, GLAZE HANDLER Primary Care Provider Micky Dickson MD Primary Care Provider [phone] Robert Mae MD Unavailable Maryann El APRN, [facility] Unavailable + [phone] Germania Navarro APRN, GLAZE HANDLER Unavailable Leny Morales MD Unavailable [phone] Silva Vicente MD Primary Care Provider [phone] Manisha Galeas MD Primary Care Provider [phone] Theodora Berry LOCKMAKER, GLAZE HANDLER Primary Care Provider [phone] Reason for Visit * Reason Comments Medication Refill Encounter Details Date Type Department Care Team (Late st Contact Info) Description 07/05/2020 Refill [facility] - [place] #1 [facility] [place] [address] Mac Sher MD #2 [place] [address] Medication Refill Social History Tobacco Use Types [...] Description 04/02/2025 10:30 AM CDT Office Visit [facility]Y #2 [place] [address] Sundar Tristan MD #2 [facility] [address] [place] [address] 04/03/2025 10:00 AM CDT Office Visit [facility] Medical Group - Gastroenterology - [place] #2 [place] [address] Feliberto Winston MD 2 [facility] [address] [place] [address] 04/03/2025 11:00 AM CDT Office Visit [facility] - Neurology - [place] #2 [place] [address] Maryann El APRN, AIRCRAFT FUELER #2 [place] [address] 04/22/2025 10:30 AM CDT Office Visit [facility] - Family [facility] - [place] #[address] [place] [address] Theodora Berry, LOCKMAKER, GLAZE HANDLER 2 [facility] [address] [facility]. [address] [place] [address] documented as of this encounter Visit Diagnoses Not on filedocumented in this encounter Additional Health Concerns Infection Onset Date Last Indicated Resolved Time COVID - 19 06/23/2021 06/23/2021 06/29/2021 9:24 PM CDT COVID - 19 09/03/2024 09/03/2024 09/03/2024 9:25 PM INSTANT POTATO PROCESSOR documented as of this encounter Care Teams Software Sales Executive Relationship Specialty Start Date End Date Winifred Armstrong APRN, GLAZE HANDLER [address] [place] [address] PCP - General Advanced Practice Nurse 10/17/19 Micky Dickson MD [address] [place] [address] [address] [place] [address] PCP - General Family Medicine 09/25/23 07/04/24 Silva Vicente MD [address] [place] [address] [address] [place] [address] PCP - General Family Medicine 07/05/24 12/29/24 Manisha Galeas MD [address] [place] [address] [address] [place] [address] PCP - General Family Medicine 12/30/24 01/20/25 Theodora Berry, LOCKMAKER, GLAZE HANDLER [address] [address] PCP - General Advanced Practice Nurse 01/21/25 Mac Sher MD #2 [place] [address] Consulting Physician Neurology 09/15/15 Robert Mae MD #2 [place] [address] Consulting Physician Pulmonary Disease 10/27/22 Maryann El, LOCKMAKER, AIRCRAFT FUELER #[address] [place] [address] Nurse Practitioner Advanced Practice Nurse 12/21/22 Germania Navarro, LOCKMAKER, GLAZE HANDLER #2 [place] [address] Nurse Practitioner Advanced Practice Nurse 10/04/23 Leny Morales MD #2 [place] [address] Consulting Physician Gastroenterology 01/19/23 documented as of this encounter
--- OUTSIDE RECORDS SUMMARY | 2025-03-26 09:14 | XMS_ITS | Encounter Summary ---
Author Organization [facility] Address [address] [place] [address] Phone Care Team Providers Care Search Optimization Analyst Name Role Phone Mac Sher MD Unavailable Winifred Armstrong HEAD CD REACTOR OPERATOR, BLEACH PLANT OPERATOR Primary Care Provider Micky Dickson MD Primary Care Provider [phone] Robert Mae MD Unavailable Maryann El HEAD CD REACTOR OPERATOR, [facility] Unavailable + [phone] Germania Navarro APRN, BLEACH PLANT OPERATOR Unavailable Leny Morales MD Unavailable [phone] Silva Vicente MD Primary Care Provider [phone] Manisha Galeas MD Primary Care Provider [phone] Theodora Berry HEAD CD REACTOR OPERATOR, BLEACH PLANT OPERATOR Primary Care Provider [phone] Reason for Referral * Radiology Services (Routine) - Closed Specialty Diagnoses / Procedures Referred By Jo Ann sandoval Referred To Contact Radiology Diagnoses Pre-op testing Procedures EKG 12 LEAD Manuel Ventura MD Phone: tel: fax: Referral ID Status Reason Start Date Expiration Date Visits Re quested Visits Authorized [id number] Closed 09/13/2021 1 1 CRIPTION AGENT * Radiology Services (Routine) - Closed Specialty Diagnoses / Procedures Referred By Jo Ann sandoval Referred To Contact Radiology Diagnoses Pre-op testing Procedures XR CHEST 2 VIEWS Manuel Ventrua MD Phone: tel: fax: Referral ID Status Reason Start Date Expiration Date Visits Re quested Visits Authorized [id number] Closed 09/13/2021 1 1 CRIPTION AGENT Encounter Details Date Type Department Care Team (Latest Contact Info) Description 09/13/2021 [facility] [address] [place] [address] Manuel Ventura MD [address] [place] [id number] Pre-op testing (Primary Dx) Social History Tobacco [...] COVID-19? No / Unsure 09/13/2021 9:22 AM SUBSCRIPTION AGENT documented as of this encounter Plan of Treatment Upcoming Encounters Date Type Department Care Team (Late st Contact Info) Description 04/02/2025 10:30 AM CDT Office Visit [facility]Y #2 [facility] [place] [address] Sundar Tristan MD #[address] [facility] [address] [place] [address] 04/03/2025 10:00 AM CDT [facility]ology - [place] #2 [facility] [place] [address] Feliberto Winston MD 2 [facility] [address] [place] [address] 04/03/2025 11:00 AM CDT Office Visit [facility] - Neurology - [place] #2 [facility] [address] Maryann El, HEAD CD REACTOR OPERATOR, JUKEBOX ROUTE DRIVER #2 [place] [address] 04/22/2025 10:30 AM CDT Office [facility] - Family Medicine - [place] #2 [place] [address] Theodora Berry, HEAD CD REACTOR OPERATOR, BLEACH PLANT OPERATOR 2 [facility]. [address] [place] [address] documented as of this encounter Results * XR CHEST 2 VIEWS (09/23/2021 1:52 PM SUBSCRIPTION AGENT) Anatomical Region Laterality Modality Chest N/A Digital Radiogra phy 09/23/2021 2:16 PM SUBSCRIPTION AGENT Impressions 09/23/2021 2:18 PM SUBSCRIPTION AGENT IMPRESSION: Pulmonary emphysema without acute lung disease Narrative 09/23/2021 2:18 PM SUBSCRIPTION AGENT EXAM DESCRIPTION: XR CHEST 2 VIEWS REASON [...] Tan Ko M.D. NC: NC Report ID: [id number] Reading Location: [id number] Procedure Note Tan Ko MD - 09/23/2021 [...] Tan Ko M.D. NC: NC Report ID: [id number] Reading Location: [id number] IMPRESSION: Pulmonary emphysema without acute lung disease Manuel Ventura MD IMG DIAGNOSTIC ORDERABLES Final Result * EKG 12 LEAD (09/23/2021 1:39 PM SUBSCRIPTION AGENT) Ventricular Rate BPM EXTERNAL EKG Atrial Rate BPM EXTERNAL EKG P-R Interval 164 ms EXTERNAL EKG QRS Duration 74 ms EXTERNAL EKG Q-T Duration 382 ms EXTERNAL EKG QTC CALCULATION 424 ms EXTERNAL EKG P [place] 86 degrees EXTERNAL EKG R [place] 77 degrees EXTERNAL EKG T [place] 80 degrees EXTERNAL EKG 09/23/2021 1:39 PM SUBSCRIPTION AGENT Impressions EXTERNAL EKG - 09/23/2021 2:49 PM SUBSCRIPTION AGENT Sinus rhythm Early repolarization changes Within normal limits as previously Comparison Summary: No significant change Summary: Normal ECG Compared with:09/15/2020 9:38 AM; 10/17/2019 2:16 PM; 02/16/2016 10:31 AM No significant changes noted Confirmed by Zena Murry [id number] on 09/23/2021 2:49:06 PM Narrative Procedure Note Roselia Feritas MD - 09/23/2021 IMPRESSION: Sinus rhythm Early repolarization changes Within normal limits as previously Comparison Summary: No significant change Summary: Normal ECG Compared with:09/15/2020 9:38 AM; 10/17/2019 2:16 PM; 02/16/2016 10:31 AM No significant changes noted Confirmed by Zena Murry [id number] on 09/23/2021 2:49:06 PM Manuel Ventura MD IMG ECG ORDERABLES Final Result Performing Organization Address City/[facility] Co de Phone Number EXTERNAL EKG * ERYTHROCYTE SEDIMENTATION RATE (ESR) (09/23/2021 1:36 PM SUBSCRIPTION AGENT) ESR (SED RATE, ERYTHROCYTE SEDIMENTATION RATE) 1 <30 mm/h 09/23/2021 3:16 PM SUBSCRIPTION AGENT [facility] Comment: Patients presenting with increased level of fibrinogen, gamma globulins, or abnormally shaped RBCs could affect the results for the erythrocyte sedimentation rate (ESR). Results should be clinically correlated. Blood Venipuncture / Unknown 09/23/2021 1:36 PM SUBSCRIPTION AGENT 09/23/2021 2:58 PM SUBSCRIPTION AGENT Manuel Ventura MD HEMATOLOGY ORDERABLES Final Resu lt Performing Organization Address City/[facility]/ZIP Co de Phone Number [facility] #1 [place] [address] * C-REACTIVE PROTEIN (CRP) QUANT (09/23/2021 1:36 PM SUBSCRIPTION AGENT) C-REACTIVE PROTEIN <=0.30 <0.50 mg/dL 09/23/2021 3:35 PM SUBSCRIPTION AGENT [facility] Blood Venipuncture / Unknown 09/23/2021 1:36 PM SUBSCRIPTION AGENT 09/23/2021 2:38 PM SUBSCRIPTION AGENT us Manuel Ventura MD CHEMISTRY ORDERABLES Final Resul t [facility] #1 [place] [address] * (ABNORMAL) CMP (COMPREHENSIVE METABOLIC PANEL) (09/23/2021 1:36 PM SUBSCRIPTION AGENT) SODIUM 141 136 - 144 mmol/L 09/23/2021 3:07 PM [facility] POTASSIUM 4.3 3.5 - 5.1 mmol/L 09/23/2021 3:07 PM [facility] CHLORIDE 108 100 - 110 mmol/L 09/23/2021 3:07 PM [facility] CO2, VENOUS 23 22 - 32 mmol/L 09/23/2021 3:07 PM [facility] ANION GAP 14.3 8.0 - 20.0 mmol/L 09/23/2021 3:07 PM [facility] GLUCOSE 83 70 - 99 mg/dL 09/23/2021 3:07 PM [facility] BUN 20 8 - 23 mg/dL 09/23/2021 3:07 PM [facility] CREATININE, BLOOD 0.83 0.60 - 1.10 mg/dL 09/23/2021 3:07 PM [facility] BUN/CREATININE RATIO 24(H) 12 - 20 ratio 09/23/2021 3:07 PM [facility] TOTAL PROTEIN 6.6 6.0 - 8.3 g/dL 09/23/2021 3:07 PM [facility] ALBUMIN 4.3 3.5 - 5.2 g/dL 09/23/2021 3:07 PM [facility] Comment: The colormetric methods used for the determination of Albumin may lead to falsely elevated test results in patients suffering from renal failure or insufficiency due to interference with other proteins. A/G RATIO 1.9 1.0 - 2.0 09/23/2021 3:07 PM [facility] CALCIUM 9.5 8.9 - 10.3 mg/dL 09/23/2021 3:07 PM [facility] T BILI <0.3 <=1.2 mg/dL 09/23/2021 3:07 PM SUBSCRIPTION AGENT [facility] SGOT (AST) 14 <=32 U/L 09/23/2021 3:07 PM [facility] SGPT (ALT) 14 <=41 U/L 09/23/2021 3:07 PM [facility] ALKALINE PHOSPHATASE 58 35 - 105 U/L 09/23/2021 3:07 PM [facility] GFR, EST. NONAFRICAN >60 >=60 09/23/2021 3:07 PM SUBSCRIPTION AGENT [facility] GFR, EST. >60 >=60 021 3:07 PM [facility] Comment: Creatinine Clearance is the preferred criteria for selecting drug dose adjustments in renally impaired patients. The GFR is provided as additional pertinent clinical information. GFR is reported in mL/min/1.73 sq m. IS THE PATIENT REQUIRED TO BE FASTING? No 09/23/2021 3:07 PM [facility] Blood Venipuncture / Unknown 09/23/2021 1:36 PM SUBSCRIPTION AGENT 09/23/2021 2:38 PM SUBSCRIPTION AGENT us Manuel Ventura MD CHEMISTRY ORDERABLES Final Resul t [facility] #1 [place] [address] documented in this encounter Visit Diagnoses Diagnosis Pre-op testing- Primary Preoperative examination, unspecified Pre-op testing Preoperative examination, unspecified Pre-op testing Preoperative examination, unspecified documented in this encounter Additional Health Concerns Infection Onset Date Last Indicated Resolved Time COVID - 19 09/03/2024 09/03/2024 09/03/2024 9:25 PM SUBSCRIPTION AGENT documented as of this encounter Care Teams Search Optimization Analyst Relationship Specialty Start Date End Date Winifred Armstrong APRN, BLEACH PLANT OPERATOR [address] [place] [address] PCP - General Advanced Practice Nurse 10/17/19 Micky Dickson MD [address] [facility] [address] [place] [address] PCP - General Family Medicine 09/25/23 07/04/24 Silva Vicente MD [address] [facility] [address] [place] [address], [place] [address] PCP - General Family Medicine 07/05/24 12/29/24 Manisha Galeas MD [address] [facility] [address]STR[address] [place] [address] PCP - General Family Medicine 12/30/24 01/20/25 Theodora Berry, HEAD CD REACTOR OPERATOR, BLEACH PLANT OPERATOR 2 [facility] [address] [address] PCP - General Advanced Practice Nurse 01/21/25 Mac Sher MD #2 [place] [address] Consulting Physician Neurology 09/15/15 Robert Mae MD #2 [place] [address] Consulting Physician Pulmonary Disease 10/27/22 Maryann El APRN, JUKEBOX ROUTE DRIVER #2 [place] [address] Nurse Practitioner Advanced Practice Nurse 12/21/22 Germania Navarro APRN, BLEACH PLANT OPERATOR #2 [place] [address] Nurse Practitioner Advanced Practice Nurse 10/04/23 Leny Morales MD #2 [place] [address] Consulting Physician Gastroenterology 01/19/23 documented as of this encounter
--- OUTSIDE RECORDS SUMMARY | 2025-03-26 09:14 | XMS_ITS | Encounter Summary ---
Author Organization [facility] Address [address] [place] [address] Phone Care Team Providers Care Production Estimator Name Role Phone Mac Sher MD Unavailable [phone] Micky Dickson MD Primary Care Provider [phone] Robert Mae MD Unavailable Maryann El APRN, LOFT WORKER Unavailable + [phone] Germania Navarro APRN, CONTROLLED AREA CHECKER Unavailable Leny Morales MD Unavailable [phone] Silva Vicente MD Primary Care Provider [phone] Manisha Galeas MD Primary Care Provider [phone] Theodora Berry TONGUE AND GROOVE MACHINE OPERATOR, CONTROLLED AREA CHECKER Primary Care Provider Reason for Visit * Reason Comments Medication Refill Encounter Details Date Type Department Care Team (Late st Contact Info) Description 11/08/2023 Refill [facility] - Neurology - [place] #2 [place] [address] Maryann El, CESAR, LOFT WORKER #2 [place] [address] Medication Refill Social History Tobacco Use Types [...] Dept 11/16/23 Office Visit Mac [facility] 08/25/23 Procedure Visit Mac Sher MD [facility] 05/26/23 Procedure Visit Mac Sher MD [facility] 05/09/23 Telemedicine Mac Sher MD [facility] 03/01/23 Procedure Visit Mac Sher MD [facility] 02/20/23 Office Visit Maryann El APRN, LOFT WORKER [facility] 12/21/22 Office Visit Maryann El APRN, LOFT WORKER [facility] 12/09/22 Procedure Visit Mac Sher MD [facility] Neurology [place] Showing recent visits within past 365 days and meeting all other requirements Future Appointments Date Type Provider Dept 11/24/23 Appointment Mac Sher MD [facility] Neurology [place] Showing future appointments within next 90 days and meeting all other requirements LIGHTER documented in this encounter Plan of Treatment Upcoming Encounters Date Type Department Care Team (Late st Contact Info) Description 04/02/2025 10:30 AM CDT Office Visit [facility] #2 [place] [address] Sundar Tristan MD #2 [facility] [address] [place] [address] 04/03/2025 10:00 AM CDT Office Visit [facility] - Gastroenterology - [place] #2 [facility] [place] [address] Feliberto Winston MD [address] [facility] [address] [place] [address] 04/03/2025 11:00 AM CDT [facility] - [place] #2 [facility] [place] [address] Maryann El, TONGUE AND GROOVE MACHINE OPERATOR, LOFT WORKER #2 [place] [address] 04/22/2025 10:30 AM CDT [facility] Visit [facility] - Family Medicine - [place] #2 [place] [address] Theodora Berry, TONGUE AND GROOVE MACHINE OPERATOR, CONTROLLED AREA CHECKER 2 [facility] [address] [place] [address] documented as of this encounter Visit Diagnoses Diagnosis Essential tremor Essential and other specified forms of tremor documented in this encounter Additional Health Concerns Infection Onset Date Last Indicated Resolved Time COVID - 19 09/03/2024 09/03/2024 09/03/2024 9:25 PM LEADLIGHTER documented as of this encounter Care Teams Production Estimator Relationship Specialty Start Date End Date Micky Dickson MD [address] [place] [address] [address] [place] [address] PCP - General Family Medicine 09/25/23 07/04/24 Silva Vicente MD [address] [facility] [address] [place] [address] PCP - General Family Medicine 07/05/24 12/29/24 Manisha Galeas MD [address] [place] [address] DR CASTR[address] [place] [address] PCP - General Family Medicine 12/30/24 01/20/25 Theodora Berry APRN, CONTROLLED AREA CHECKER [address] [facility] [address] [address] PCP - General Advanced Practice Nurse 01/21/25 Mac Sher MD #[address] [place] [address] Consulting Physician Neurology 09/15/15 Robert Mae MD #[address] [place] [address] Consulting Physician Pulmonary Disease 10/27/22 Maryann El APRN, LOFT WORKER #2 [place] [address] Nurse Practitioner Advanced Practice Nurse 12/21/22 Germania Navarro APRN, CONTROLLED AREA CHECKER #2 [place] [address] Nurse Practitioner Advanced Practice Nurse 10/04/23 Leny Morales MD #2 [place] [address] Consulting Physician Gastroenterology 01/19/23 documented as of this encounter
--- OUTSIDE RECORDS SUMMARY | 2025-03-26 09:14 | XMS_ITS | Encounter Summary ---
Author Organization [facility] Address [address] [place] [address] Phone Care Team Providers Care Inseam Leveler Name Role Phone Mac Sher MD Unavailable Winifred Armstrong FINANCIAL ECONOMIST, BOX SPRING MAKER Primary Care Provider Micky Dickson MD Primary Care Provider Robert Mae MD Unavailable Maryann El APRN, [facility] Unavailable + [phone] Germania Navarro APRN, BOX SPRING MAKER Unavailable Leny Morales MD Unavailable [phone] Silva Vicente MD Primary Care Provider [phone] Manisha Galeas MD Primary Care Provider [phone] Theodora Berry FINANCIAL ECONOMIST, BOX SPRING MAKER Primary Care Provider [phone] Reason for Visit * Reason Comments Medication Refill Encounter Details Date Type Department Care Team (Late st Contact Info) Description 03/07/2023 Refill [facility] G[facility]enterology - [place] #2 [place] [address] Germania Navarro APRN, BOX SPRING MAKER #2 [place] [address] Medication Refill Social History Tobacco Use Types [...] 10:30 AM CDT Office Visit [facility]Y #2 [place] [address] Sundar Tristan MD #[address] [address] 04/03/2025 10:00 AM CDT Office Visit [facility] Gastroenterology - [place] #2 [place] [address] Feliberto Winston MD 2 [facility] [address] [place] [address] 04/03/2025 11:00 AM CDT [facility] - [place] #2 [facility] [place] [address] Maryann El, FINANCIAL ECONOMIST, MACHINE SHOP INSTRUCTOR #2 [facility] [address] 04/22/2025 10:30 AM CDT Office Visit [facility] - Family Medicine - [place] #2 [place] [address] Theodora Berry, FINANCIAL ECONOMIST, BOX SPRING MAKER [address] [facility] [address] [place] [address] documented as of this encounter Visit Diagnoses Not on filedocumented in this encounter Additional Health Concerns Infection Onset Date Last Indicated Resolved Time COVID - 19 09/03/2024 09/03/2024 09/03/2024 9:25 PM BUS ANALYST documented as of this encounter Care Teams Inseam Leveler Relationship Specialty Start Date End Date Winifred Armstrong, FINANCIAL ECONOMIST, BOX SPRING MAKER [address] [place] [address] PCP - General Advanced Practice Nurse 10/17/19 Micky Dickson MD [address] [place] [address] DR CASTRO [address] [place] [address] PCP - General Family Medicine 09/25/23 07/04/24 Silva Vicente MD [address] [place] [address] [place] [address] PCP - General Family Medicine 07/05/24 12/29/24 Manisha Galeas MD [address] [place] [address] [place] [address] PCP - General Family Medicine 12/30/24 01/20/25 Theodora Berry, FINANCIAL ECONOMIST, BOX SPRING MAKER 2 [facility] [address] [address] PCP - General Advanced Practice Nurse 01/21/25 Mac Sher MD #2 [place] [address] Consulting Physician Neurology 09/15/15 Robert Mae MD #2 [place] [address] Consulting Physician Pulmonary Disease 10/27/22 Maryann El APRN, MACHINE SHOP INSTRUCTOR #2 [place] [address] Nurse Practitioner Advanced Practice Nurse 12/21/22 Germania Navarro APRN, BOX SPRING MAKER #2 [place] [address] Nurse Practitioner Advanced Practice Nurse 10/04/23 Leny Morales MD #2 [place] [address] Consulting Physician Gastroenterology 01/19/23 documented as of this encounter
--- OUTSIDE RECORDS SUMMARY | 2025-03-26 09:14 | XMS_ITS | Encounter Summary ---
Author Organization [facility] Address [address] [place] [address] Phone Care Team Providers Care Senior Government Program Analyst Name Role Phone Mac Sher MD Unavailable [phone] Winifred Armstrong CHILD PSYCHIATRIST, CUSTOM TAILOR APPRENTICE Primary Care Provider Micky Dickson MD Primary Care Provider [phone] Robert Mae MD Unavailable Maryann El CHILD PSYCHIATRIST, MUSIC LIBRARIAN Unavailable + [phone] Germania Navarro APRN, CUSTOM TAILOR APPRENTICE Unavailable Leny Morales MD Unavailable [phone] Silva Vicente MD Primary Care Provider [phone] Manisha Galeas MD Primary Care Provider [phone] Theodora Berry CHILD PSYCHIATRIST, CUSTOM TAILOR APPRENTICE Primary Care Provider [phone] Encounter Details Date Type Department Care Team (Latest Contact Info) Description 04/18/2022 Transcribe [facility] 1 [place] [address] Manuel Ventura MD [address] [place] [address] Pre-op testing (Primary Dx) Social History Tobacco [...] 04/02/2025 10:30 AM CDT Office Visit [facility] UROLOGY #2 [place] [address] Sundar Tristan MD #2 [facility] [address] [place] [address] 04/03/2025 10:00 AM CDT Office Visit [facility] - Gastroenterology - [place] #2 [place] [address] Feliberto Winston MD 2 [facility] [address] [place] [address] 04/03/2025 11:00 AM CDT Office Visit [facility] - Neurology - [place] #2 [place] [address] Maryann El APRN, MUSIC LIBRARIAN #2 [place] [address] 04/22/2025 10:30 AM CDT Office Visit [facility] - Family Medicine - [place] #[address] [place] [address] Oehl, Theodora N, CHILD PSYCHIATRIST, CUSTOM TAILOR APPRENTICE [address] [place] [place] [place]. [address] [place] [address] documented as of this encounter Results * SARS-COV-2 BY MOLECULAR (04/18/2022 3:27 PM CDT) SARSCOV2 NOT DETECTED (Referenc e Range for this test is Not Detected) [facility] ONEIL ID NOW B 04/18/2022 4:36 PM CDT [facility] Comment:This test was perfor med by a MOLECULAR, NON-PCR method Other NASOPHARYNGEAL STRUCTURE / Unknown Non-Phlebotomy Collection / Unknown 04/18/2022 3:27 PM CDT 04/18/2022 3:59 PM CDT Narrative [facility] - 04/18/2022 4:36 PM CDT This [...] information for Clinicians can be found at: https://www.fda.gov/media/272216/download Additional information for Patients can be found at: https://www.fda.gov/media/302241/download Manuel Ventura MD MICROBIOLOGY - GENERAL ORDERABLE S Final Result [facility] #1 [place] [address] documented in this encounter Visit Diagnoses Diagnosis Pre-op testing- Primary Preoperative examination, unspecified documented in this encounter Additional Health Concerns Infection Onset Date Last Indicated Resolved Time COVID - 19 09/03/2024 09/03/2024 09/03/2024 9:25 PM TYPEWRITER MECHANIC documented as of this encounter Care Teams Senior Government Program Analyst Relationship Specialty Start Date End Date Winifred Armstrong APRN, CUSTOM TAILOR APPRENTICE [address] [place] [address] PCP - General Advanced Practice Nurse 10/17/19 Micky Dickson MD [address] [facility] [address] [place] [address] PCP - General Family Medicine 09/25/23 07/04/24 Silva Vicente MD [address] [facility] [address] CA[address] [place] [address] PCP - General Family Medicine 07/05/24 12/29/24 Manisha Galeas MD [address] [facility] [address] CASTRO [address] [place] [address] PCP - General Family Medicine 12/30/24 01/20/25 Theodora Berry, CHILD PSYCHIATRIST, CUSTOM TAILOR APPRENTICE 2 [facility] [address] [address] PCP - General Advanced Practice Nurse 01/21/25 Mac Sher MD #2 [place] [address] Consulting Physician Neurology 09/15/15 Robert Mae MD #2 [place] [address] Consulting Physician Pulmonary Disease 10/27/22 Maryann El APRN, MUSIC LIBRARIAN #2 [place] [address] Nurse Practitioner Advanced Practice Nurse 12/21/22 Germania Navarro APRN, CUSTOM TAILOR APPRENTICE #2 [place] [address] Nurse Practitioner Advanced Practice Nurse 10/04/23 Leny Morales MD #2 [place] [address] Consulting Physician Gastroenterology 01/19/23 documented as of this encounter
--- OUTSIDE RECORDS SUMMARY | 2025-03-26 09:14 | XMS_ITS | Encounter Summary ---
Author Organization [facility] Address [address] [place] [address] Phone Care Team Providers Care Financial Planning Advisor Name Role Phone Mac Sher MD Unavailable Winifred Armstrong TRANSITIONS MANAGER RN, BOBBIN MARKER Primary Care Provider Micky Dickson MD Primary Care Provider [phone] Robert Mae MD Unavailable Maryann El APRN, [facility] Unavailable + [phone] Germania Navarro APRN, BOBBIN MARKER Unavailable Leny Morales MD Unavailable [phone] Silva Vicente MD Primary Care Provider [phone] Manisha Galeas MD Primary Care Provider [phone] Theodora Berry TRANSITIONS MANAGER RN, BOBBIN MARKER Primary Care Provider [phone] Reason for Visit * Reason Comments Medication Refill Encounter Details Date Type Department Care Team (Late st Contact Info) Description 08/08/[address] [facility] - [facility] #2 [place] [address] Mac Sher MD #2 [place] [address] Medication Refill Social History Tobacco Use Types [...] Description 04/02/2025 10:30 AM CDT Office Visit [facility] UROLOGY #2 [place] [address] Sundar Tristan MD #2 [facility] [address] [place] [address] 04/03/2025 10:00 AM CDT Office Visit [facility] Medical [facility] - Gastroenterology [facility] #2 [place] [address] Feliberto Winston MD 2 [facility] [address] [place] [address] 04/03/2025 11:00 AM CDT [facility] - [place] #2 [place] [address] Maryann El, TRANSITIONS MANAGER RN, COMMUNICATION COORDINATOR #2 [place] [address] 04/22/2025 10:30 AM CDT Office Visit [facility] - Family Medicine [facility] #2 [place] [address] Theodora Berry APRN, BOBBIN MARKER [address] [address] documented as of this encounter Visit Diagnoses Not on filedocumented in this encounter Additional Health Concerns Infection Onset Date Last Indicated Resolved Time COVID - 19 09/03/2024 09/03/2024 09/03/2024 9:25 PM BUSINESS ANALYSIS CONSULTANT documented as of this encounter Care Teams Financial Planning Advisor Relationship Specialty Start Date End Date Winifred Armstrong APRN, BOBBIN MARKER [address] [place] [address] PCP - General Advanced Practice Nurse 10/17/19 Micky Dickson MD [address] [place] [address] DR CASTRO [address] [place] [address] PCP - General Family Medicine 09/25/23 07/04/24 Silva Vicente MD [address] [place] [address] [address] CASTR[address] [place], [place] [address], [place] [address] PCP - General Family Medicine 07/05/24 12/29/24 Manisha Galeas MD [address] [place] [address] [address] CASTRO [address] [place], [place] [address], [place] [address] PCP - General Family Medicine 12/30/24 01/20/25 Theodora Berry APRN, BOBBIN MARKER 2 [facility] [address] [address] PCP - General Advanced Practice Nurse 01/21/25 Mac Sher MD #2 [place] [address] Consulting Physician Neurology 09/15/15 Robert Mae MD #2 [place] [address] Consulting Physician Pulmonary Disease 10/27/22 Maryann El APRN, COMMUNICATION COORDINATOR #2 [place] [address] Nurse Practitioner Advanced Practice Nurse 12/21/22 Germania Navarro APRN, BOBBIN MARKER #2 [place] [address] Nurse Practitioner Advanced Practice Nurse 10/04/23 Leny Morales MD #2 [place] [address] Consulting Physician Gastroenterology 01/19/23 documented as of this encounter
--- OUTSIDE RECORDS SUMMARY | 2025-03-26 09:14 | XMS_ITS | Encounter Summary ---
Author Organization [facility] Address [address] [place] [address] Phone Care Team Providers Care Char Puller Name Role Phone Mac Sher MD Unavailable Winifred Armstrong ALUMINUM SHINGLE ROOFER, RADIO BROADCASTER Primary Care Provider Micky Dickson MD Primary Care Provider [phone] Robert Mae MD Unavailable Maryann El APRN, [facility] Unavailable + [phone] Germania Navarro APRN, RADIO BROADCASTER Unavailable Leny Morales MD Unavailable [phone] Silva Vicente MD Primary Care Provider [phone] Manisha Galeas MD Primary Care Provider [phone] Theodora Berry ALUMINUM SHINGLE ROOFER, RADIO BROADCASTER Primary Care Provider [phone] Reason for Visit * Reason Comments Medication Refill Encounter Details Date Type Department Care Team (Late st Contact Info) Description 03/15/2021 Refill [facility] - Neurology - [place] #1 [place] [place] [address] Mac Sher MD #2 [place] [address] Medication Refill Social History Tobacco Use Types [...] 10:30 AM CDT Office Visit [facility] UROLOGY #2 [place] [address] Sundar Tristan MD #2 [facility] [address] [place] [address] 04/03/2025 10:00 AM CDT Office Visit [facility] - Gastroenterology [facility] #2 [place] [address] Feliberto Winston MD 2 [facility] [address] [place] [address] 04/03/2025 11:00 AM CDT [facility] - [place] #2 [place] [address] Maryann El, ALUMINUM SHINGLE ROOFER, CONSTRUCTION PIT WORKER #2 [place] [address] 04/22/2025 10:30 AM CDT Office Visit [facility] - Family Medicine - [place] #2 [facility] [place] [address] Theodora Berry APRN, RADIO BROADCASTER 2 [facility] [place] [address] [address] documented as of this encounter Visit Diagnoses Not on filedocumented in this encounter Additional Health Concerns Infection Onset Date Last Indicated Resolved Time COVID - 19 06/23/2021 06/23/2021 06/29/2021 9:24 PM CDT COVID - 19 09/03/2024 09/03/2024 09/03/2024 9:25 PM PEDIATRIC CLINICAL NURSE SPECIALIST documented as of this encounter Care Teams Char Puller Relationship Specialty Start Date End Date Winifred Armstrong APRN, RADIO BROADCASTER [address] [place] [address] PCP - General Advanced Practice Nurse 10/17/19 Micky Dickson MD 4 [facility] [address] CASTRO [address] [place] [address] PCP - General Family Medicine 09/25/23 07/04/24 Silva Vicente MD [address] [place] [address] [address] CASTRO [address] [place] [address] PCP - General Family Medicine 07/05/24 12/29/24 Manisha Galeas MD 4 [facility] [address] [place] [address] PCP - General Family Medicine 12/30/24 01/20/25 Theodora Berry, CESAR, RADIO BROADCASTER 2 [facility] [address] [place] [address] PCP - General Advanced Practice Nurse 01/21/25 Mac Sher MD #2 [place] [address] Consulting Physician Neurology 09/15/15 Robert Mae MD #2 [place] [address] Consulting Physician Pulmonary Disease 10/27/22 Maryann El APRN, CONSTRUCTION PIT WORKER #2 [place] [address] Nurse Practitioner Advanced Practice Nurse 12/21/22 Germania Navarro APRN, RADIO BROADCASTER #2 [place] [address] Nurse Practitioner Advanced Practice Nurse 10/04/23 Leny Morales MD #2 [place] [address] Consulting Physician Gastroenterology 01/19/23 documented as of this encounter
--- OUTSIDE RECORDS SUMMARY | 2025-03-26 09:14 | XMS_ITS | Encounter Summary ---
Author Organization [facility] Address [address] [place] [address] Phone Care Team Providers Care Transmission Line Engineer Name Role Phone Mac Sher MD Unavailable Winifred Armstrong AGRICULTURE SALES ACCOUNT MANAGER, SANDAL PARTS ASSEMBLER Primary Care Provider Micky Dickson MD Primary Care Provider [phone] Robert Mae MD Unavailable Maryann El APRN, [facility] Unavailable + [phone] Germania Navarro APRN, SANDAL PARTS ASSEMBLER Unavailable Leny Morales MD Unavailable [phone] Silva Vicente MD Primary Care Provider [phone] Manisha Galeas MD Primary Care Provider [phone] Theodora Berry AGRICULTURE SALES ACCOUNT MANAGER, SANDAL PARTS ASSEMBLER Primary Care Provider [phone] Reason for Visit * Reason Comments Medication Refill Encounter Details Date Type Department Care Team (Late st Contact Info) Description 08/18/2020 Refill [facility] - Neurology - [place] #1 [facility] [place] [address] Mac Sher MD #2 [place] [address] Medication Refill Social History Tobacco Use Types [...] Description 04/02/2025 10:30 AM CDT Office Visit [facility] GROUP UROLOGY #2 [place] [address] Sundar Tristan MD #2 [facility] [address] [place] [address] 04/03/2025 10:00 AM CDT Office Visit [facility] Medical [facility] - Gastroenterology [facility] #2 [place] [address] Feliberto Winston MD 2 [facility] [address] [place] [address] 04/03/2025 11:00 AM CDT [facility] - [facility]rology - [place] #2 [place] [address] Maryann El, AGRICULTURE SALES ACCOUNT MANAGER, FILE DRAWER FINISHER #2 [place] [address] 04/22/2025 10:30 AM CDT Office Visit [facility] - Family Medicine - [place] #2 [place] [address] Theodora Berry APRN, SANDAL PARTS ASSEMBLER 2 [facility] [place] [address] [address] documented as of this encounter Visit Diagnoses Not on filedocumented in this encounter Additional Health Concerns Infection Onset Date Last Indicated Resolved Time COVID - 19 06/23/2021 06/23/2021 06/29/2021 9:24 PM CDT COVID - 19 09/03/2024 09/03/2024 09/03/2024 9:25 PM SALESPERSON MEN'S HATS documented as of this encounter Care Teams Transmission Line Engineer Relationship Specialty Start Date End Date Winifred Armstrong APRN, SANDAL PARTS ASSEMBLER [address] [place] [address] PCP - General Advanced Practice Nurse 10/17/19 Micky Dickson MD [address] [facility] [address] CASTRO [address] [place] [address] PCP - General Family Medicine 09/25/23 07/04/24 Silva Vicente MD [address] [place] [address] [address] CASTRO [address] [place] [address] PCP - General Family Medicine 07/05/24 12/29/24 Manisha Galeas MD [address] [facility] [address]O [address] [place] [address] PCP - General Family Medicine 12/30/24 01/20/25 Theodora Berry, CESAR, SANDAL PARTS ASSEMBLER 2 [facility] [place] [facility] [address] [place] [address] PCP - General Advanced Practice Nurse 01/21/25 Mac Sher MD #2 [place] [address] Consulting Physician Neurology 09/15/15 Robert Mae MD #2 [place] [address] Consulting Physician Pulmonary Disease 10/27/22 Maryann El APRN, FILE DRAWER FINISHER #2 [place] [address] Nurse Practitioner Advanced Practice Nurse 12/21/22 Germania Navarro APRN, SANDAL PARTS ASSEMBLER #2 [place] [address] Nurse Practitioner Advanced Practice Nurse 10/04/23 Leny Morales MD #2 [place] [address] Consulting Physician Gastroenterology 01/19/23 documented as of this encounter
--- OUTSIDE RECORDS SUMMARY | 2025-03-26 09:14 | XMS_ITS | Encounter Summary ---
Author Organization [facility] Address [address] [place] [address] Phone Care Team Providers Care Hand Tile Maker Name Role Phone Mac Sher MD Unavailable [phone] Micky Dickson MD Primary Care Provider [phone] Robert Mae MD Unavailable Maryann El APRN, SUPERVISOR OF INSTRUCTION Unavailable + [phone] Germania Navarro APRN, HOLISTIC NUTRITIONIST Unavailable Leny Morales MD Unavailable [phone] Silva Vicente MD Primary Care Provider [phone] Manisha Galeas MD Primary Care Provider [phone] Theodora Berry GLOBAL TECHNICAL WRITER, HOLISTIC NUTRITIONIST Primary Care Provider Reason for Visit * Reason Comments Medication Refill Encounter Details Date Type Department Care Team (Late st Contact Info) Description 12/14/2023 Refill [facility] - Gastroenterology - [place] #2 [place] [address] Germania Navarro APRN, HOLISTIC NUTRITIONIST #2 [place] [address] Medication Refill Social History Tobacco Use Types [...] Monica Marcelo RN - 12/15/2023 10:37 AM SUCTION ROLLER Medication [facility] and [facility] [place] order for pediatric and adult patients. ION ROLLER documented in this encounter Plan of Treatment Upcoming Encounters Date Type Department Care Team (Late st Contact Info) Description 04/02/2025 10:30 AM CDT Office Visit [facility]IAN GROUP UROLOGY #2 [place] [address] Sundar Tristan MD #2 [facility] [address] [place] [address] 04/03/2025 10:00 AM CDT Office Visit [facility] Medical Group - Gastroenterology - [place] #2 [place] [address] Feliberto Winston MD 2 [facility] [address] [place] [address] 04/03/2025 11:00 AM CDT Office Visit [facility] Medical Group - Neurology - [place] #2 [place] [address] Maryann El APRN, SUPERVISOR OF INSTRUCTION #[address] [place] [address] 04/22/2025 10:30 AM CDT Office Visit [facility] Family [facility] #2 [place] [address] Theodora Berry APRN, HOLISTIC NUTRITIONIST 2 [facility] [place] [facility] [address] [place] [address] documented as of this encounter Visit Diagnoses Not on filedocumented in this encounter Additional Health Concerns Infection Onset Date Last Indicated Resolved Time COVID - 19 09/03/2024 09/03/2024 09/03/2024 9:25 PM SUCTION ROLLER documented as of this encounter Care Teams Hand Tile Maker Relationship Specialty Start Date End Date Micky Dickson MD [address] [place] [address] [address] CASTRO [address] [place] [address] PCP - General Family Medicine 09/25/23 07/04/24 Silva Vicente MD [address] [place] [address] [place] [address] PCP - General Family Medicine 07/05/24 12/29/24 Manisha Galeas MD [address] [place] [address] [address] [place], [place] [address], [place] [address] PCP - General Family Medicine 12/30/24 01/20/25 Theoodra Berry, CESAR, HOLISTIC NUTRITIONIST [address] [address] PCP - General Advanced Practice Nurse 01/21/25 Mac Sher MD #2 [place] [address] Consulting Physician Neurology 09/15/15 Robert Mae MD #2 [place] [address] Consulting Physician Pulmonary Disease 10/27/22 Maryann El APRN, SUPERVISOR OF INSTRUCTION #2 [place] [address] Nurse Practitioner Advanced Practice Nurse 12/21/22 Germania Navarro APRN, HOLISTIC NUTRITIONIST #2 [place] [address] Nurse Practitioner Advanced Practice Nurse 10/04/23 Leny Morales MD #2 [place] [address] Consulting Physician Gastroenterology 01/19/23 documented as of this encounter
--- OUTSIDE RECORDS SUMMARY | 2025-03-26 09:14 | XMS_ITS | Encounter Summary ---
Author Organization [facility] Address [address] [place] [address] Phone Care Team Providers Care Compressor Repairer Name Role Phone Mac Sher MD Unavailable [phone] Micky Dickson MD Primary Care Provider [phone] Robert Mae MD Unavailable Maryann El APRN, MODEL ARTISTS' Unavailable + [phone] Germania Navarro APRN, SOIL SORT WORKER Unavailable Leny Morales MD Unavailable [phone] Silva Vicente MD Primary Care Provider [phone] Manisha Galeas MD Primary Care Provider [phone] Theodora Berry JIG BORING MACHINE SET UP OPERATOR, SOIL SORT WORKER Primary Care Provider Reason for Visit * Reason Comments Medication Refill Encounter Details Date Type Department Care Team (Late st Contact Info) Description 11/11/2023 Refill [facility] - Neurology - [place] #2 [place] [address] Maryann El, CESAR, MODEL ARTISTS' #2 [place] [address] Medication Refill Social History Tobacco Use Types [...] Dept 08/25/23 Procedure Visit Mac Sher MD [facility] Neurology [place] 05/26/23 Procedure Visit Mac Sher MD [facility] Neurology [facility] [place] C[place] 05/09/23 Telemedicine Mac Sher MD [facility] Neurology [facility] [place] C[place] 03/01/23 Procedure Visit Mac Sher MD [facility] Neurology [facility] Bang Cee 02/20/23 Office Visit Maryann El APRN, CNS [facility] Neurology [facility] Bang C[place] 12/21/22 Office Visit Maryann El APRN, CNS [facility] Neurology [facility] [place] C[place] 12/09/22 Procedure Visit Mac Sher MD [facility] Neurology [facility] Showing recent visits within past 365 days and meeting all other requirements Future Appointments Date Type Provider Dept 11/16/23 Appointment Mac Sher MD [facility] Neurology [facility] Bang [facility] 11/24/23 Appointment Mac Sher MD [facility] Neurology [facility] Bang [facility] Showing future appointments within next 90 days and meeting all other requirements TRIC STOVE MECHANIC documented in this encounter Plan of Treatment Upcoming Encounters Date Type Department Care Team (Late st Contact Info) Description 04/02/2025 10:30 AM CDT Office Visit [facility]IAN GROUP UROLOGY #2 [place] [address] Sundar Tristan MD #2 [facility] [address] [place] [address] 04/03/2025 10:00 AM CDT Office Visit [facility] Medical Group - Gastroenterology - [place] #2 [facility] [place] [address] Feliberto Winston MD 2 [facility] [address] [place] [address] 04/03/2025 11:00 AM CDT [facility] - Neurology - [place] #2 [place] [address] Maryann El, JIG BORING MACHINE SET UP OPERATOR, MODEL ARTISTS' #2 [place] [address] 04/22/2025 10:30 AM CDT Office Visit [facility] - Family Medicine - [place] #2 [facility] [address] Theodora Berry, JIG BORING MACHINE SET UP OPERATOR, SOIL SORT WORKER 2 [facility] [address] [place] [address] documented as of this encounter Visit Diagnoses Not on filedocumented in this encounter Additional Health Concerns Infection Onset Date Last Indicated Resolved Time COVID - 19 09/03/2024 09/03/2024 09/03/2024 9:25 PM ELECTRIC STOVE MECHANIC documented as of this encounter Care Teams Compressor Repairer Relationship Specialty Start Date End Date Micky Dickson MD [address] [facility] [address] [place] [address] PCP - General Family Medicine 09/25/23 07/04/24 Silva Vicente MD [address] [facility] [address] [place] [address] PCP - General Family Medicine 07/05/24 12/29/24 Manisha Galeas MD [address] [facility] [address] [place] [address] PCP - General Family Medicine 12/30/24 01/20/25 Theodora Berry APRN, SOIL SORT WORKER [address] [facility] [address] [place] [address] PCP - General Advanced Practice Nurse 01/21/25 Mac Sher MD #[address] [facility] [place] [address] Consulting Physician Neurology 09/15/15 Robert Mae MD #[address] [facility] [place] [address] Consulting Physician Pulmonary Disease 10/27/22 Maryann El APRN, MODEL ARTISTS' #2 [place] [facility] [place] [address] Nurse Practitioner Advanced Practice Nurse 12/21/22 Germania Navarro APRN, SOIL SORT WORKER #2 [place] [address] Nurse Practitioner Advanced Practice Nurse 10/04/23 Leny Morales MD #2 [place] [address] Consulting Physician Gastroenterology 01/19/23 documented as of this encounter
--- OUTSIDE RECORDS SUMMARY | 2025-03-26 09:14 | XMS_ITS | Encounter Summary ---
Author Organization [facility] Address [address] [place] [address] Phone Care Team Providers Care Supervisor [place] Name Role Phone Mac Sher MD Unavailable [phone] Micky Dickson MD Primary Care Provider [phone] Robert Mae MD Unavailable Maryann El APRN, CORE LAYING MACHINE OPERATOR Unavailable + [phone] Germania Navarro APRN, COMMUNICATION INSTRUCTOR Unavailable Leny Morales MD Unavailable [phone] Silva Vicente MD Primary Care Provider [phone] Manisha Galeas MD Primary Care Provider [phone] Theodora Berry ENGINEER ASSISTANT, COMMUNICATION INSTRUCTOR Primary Care Provider Reason for Visit * Reason Comments Medication Refill Encounter Details Date Type Department Care Team (Late st Contact Info) Description 12/13/2023 Refill [facility] Medical Group - Neurology - [place] #2 [place] [address] Maryann El, CESAR, CORE LAYING MACHINE OPERATOR #2 [place] [address] Medication Refill Social History Tobacco Use Types [...] Dept 11/16/23 Office Visit Mac Sher MD [facility] Neurology [place] 08/25/23 Procedure Visit Mac Sher MD [facility] Neu[facility] [place] 05/26/23 Procedure Visit Mac Sher MD [facility] Neurology [place] C[place] 05/09/23 Telemedicine Mac Sher MD [facility] Neurology [place] 03/01/23 Procedure Visit Mac Sher MD [facility] Neurology [place] 02/20/23 Office Visit Maryann El APRN, CORE LAYING MACHINE OPERATOR [facility] Neurology [place] 12/21/22 Office Visit Maryann El APRN, CORE LAYING MACHINE OPERATOR [facility] Neu[facility] Bang [place] Showing recent visits within past 365 days and meeting all other requirements Future Appointments Date Type Provider Dept 12/15/23 Appointment Mac Sher MD [facility] Neurology [place] [facility] 02/23/24 Appointment Maryann El APRN, CORE LAYING MACHINE OPERATOR [facility] Neurology [place] Showing future appointments within next 90 days and meeting all other requirements E TRANSPLANT documented in this encounter Plan of Treatment Upcoming Encounters Date Type Department Care Team (Late st Contact Info) Description 04/02/2025 10:30 AM CDT Office Visit [facility] UROLOGY #2 [place] [address] Sundar Tristan MD #2 [place] [facility] [address] [place] [address] 04/03/2025 10:00 AM CDT Office Visit [facility] Medical Group - Gastroenterology - [place] #2 [facility] [address] Feliberto Winston MD 2 [facility] [address] [place] [address] 04/03/2025 11:00 AM CDT [facility] - [place] #2 [facility] [address] Maryann El APRN, CORE LAYING MACHINE OPERATOR #2 [facility] [place] [address] 04/22/2025 10:30 AM CDT Office Visit [facility] - Family Medicine - [place] #2 [facility] [place] [address] Theodora Berry APRN, COMMUNICATION INSTRUCTOR 2 [facility] [address] [place] [address] documented as of this encounter Visit Diagnoses Diagnosis Essential tremor Essential and other specified forms of tremor documented in this encounter Additional Health Concerns Infection Onset Date Last Indicated Resolved Time COVID - 19 09/03/2024 09/03/2024 09/03/2024 9:25 PM NURSE TRANSPLANT documented as of this encounter Care Teams Supervisor [place] Relationship Specialty Start Date End Date Micky Dickson MD [address] [place] [address] [address]STR[address] [place] [address] PCP - General Family Medicine 09/25/23 07/04/24 Silva Vicente MD [address] [place] [address] [address] CASTR[address] [place], [place] [address], [place] [address] PCP - General Family Medicine 07/05/24 12/29/24 Manisha Galeas MD [address] [place] [address] [address] CASTRO [address] [place] [address] PCP - General Family Medicine 12/30/24 01/20/25 Theodora Berry APRN, COMMUNICATION INSTRUCTOR [address] [facility] [facility] [address] [address] PCP - General Advanced Practice Nurse 01/21/25 Mac Sher MD #2 [place] [address] Consulting Physician Neurology 09/15/15 Robert Mae MD #2 [place] [address] Consulting Physician Pulmonary Disease 10/27/22 Maryann El APRN, CORE LAYING MACHINE OPERATOR #2 [place] [address] Nurse Practitioner Advanced Practice Nurse 12/21/22 Germania Navarro APRN, COMMUNICATION INSTRUCTOR #2 [place] [address] Nurse Practitioner Advanced Practice Nurse 10/04/23 Leny Morales MD #2 [place] [address] Consulting Physician Gastroenterology 01/19/23 documented as of this encounter
--- OUTSIDE RECORDS SUMMARY | 2025-03-26 09:14 | XMS_ITS | Encounter Summary ---
Author Organization [facility] Address [address] [place] [address] Phone Care Team Providers Care Filing And Polishing Supervisor Name Role Phone Mac Sher MD Unavailable Winifred Armstrong REGISTERED NURSES, COLLECTIONS AGENT Primary Care Provider Micky Dickson MD Primary Care Provider [phone] Robert Mae MD Unavailable Maryann El APRN, [facility] Unavailable + [phone] Germania Navarro APRN, COLLECTIONS AGENT Unavailable Leny Morales MD Unavailable [phone] Silva Vicente MD Primary Care Provider [phone] Manisha Galeas MD Primary Care Provider [phone] Theodora Berry REGISTERED NURSES, COLLECTIONS AGENT Primary Care Provider [phone] Reason for Visit * Reason Comments Medication Refill Encounter Details Date Type Department Care Team (Late st Contact Info) Description 06/10/2022 Refill [facility] - Neurology [facility] #2 [place] [address] Mac Sher MD #2 [place] [address] Medication Refill Social History Tobacco Use Types [...] Description 04/02/2025 10:30 AM CDT Office Visit [facility]IAN GROUP UROLOGY #2 [place] [address] Sundar Tristan MD #2 [facility] [address] [place] [address] 04/03/2025 10:00 AM CDT Office Visit [facility] Medical Group - Gastroenterology - [place] #2 [place] [address] Feliberto Winston MD 2 [facility] [address] [place] [address] 04/03/2025 11:00 AM CDT [facility] - [place] #2 [place] [address] Maryann El APRN, APARTMENT LOCATOR #2 [facility] [address] 04/22/2025 10:30 AM CDT Office Visit [facility] - Family [facility] - [place] #[address] [place] [address] Theodora Berry, REGISTERED NURSES, COLLECTIONS AGENT [address] [facility] [place] [facility] [address] [place] [address] documented as of this encounter Visit Diagnoses Not on filedocumented in this encounter Additional Health Concerns Infection Onset Date Last Indicated Resolved Time COVID - 19 09/03/2024 09/03/2024 09/03/2024 9:25 PM CESSATION SYSTEMS OUTREACH SPECIALIST documented as of this encounter Care Teams Filing And Polishing Supervisor Relationship Specialty Start Date End Date Winifred Armstrong APRN, COLLECTIONS AGENT [address] [place] [address] PCP - General Advanced Practice Nurse 10/17/19 Micky Dickson MD [address] [place] [address] [address] [place] [address] PCP - General Family Medicine 09/25/23 07/04/24 Silva Vicente MD [address] [place] [address] [place] [address] PCP - General Family Medicine 07/05/24 12/29/24 Manisha Galeas MD [address] [place] [address] [place] [address] PCP - General Family Medicine 12/30/24 01/20/25 Theodora Berry, REGISTERED NURSES, COLLECTIONS AGENT 2 [facility] [address] [place] [address] PCP - General Advanced Practice Nurse 01/21/25 Mac Sher MD #2 [place] [address] Consulting Physician Neurology 09/15/15 Robert Mae MD #2 [place] [address] Consulting Physician Pulmonary Disease 10/27/22 Maryann El APRN, APARTMENT LOCATOR #2 [place] [address] Nurse Practitioner Advanced Practice Nurse 12/21/22 Germania Navarro APRN, COLLECTIONS AGENT #2 [place] [address] Nurse Practitioner Advanced Practice Nurse 10/04/23 Leny Morales MD #2 [place] [address] Consulting Physician Gastroenterology 01/19/23 documented as of this encounter
--- OUTSIDE RECORDS SUMMARY | 2025-03-26 09:14 | XMS_ITS | Encounter Summary ---
Author Organization [facility] Address [address] [place] [address] Phone Care Team Providers Care Utility Division Project Manager Name Role Phone Mac Sher MD Unavailable [phone] Winifred Armstrong STILL OPERATOR, POWER TRANSFORMER REPAIR SUPERVISOR Primary Care Provider Micky Dickson MD Primary Care Provider Robert Mae MD Unavailable Maryann El APRN, [facility] Unavailable + [phone] Germania Navarro APRN, POWER TRANSFORMER REPAIR SUPERVISOR Unavailable Leny Morales MD Unavailable [phone] Silva Vicente MD Primary Care Provider [phone] Manisha Galeas MD Primary Care Provider [phone] Theodora Berry STILL OPERATOR, POWER TRANSFORMER REPAIR SUPERVISOR Primary Care Provider [phone] Reason for Visit * Reason Comments Medication Refill Encounter Details Date Type Department Care Team (Late st Contact Info) Description 05/04/2021 Refill [facility] - Neurology [facility] #2 [place] [address] Maryann El APRN, CERTIFIED ORTHOTIST #2 [place] [address] Medication Refill Social History Tobacco Use Types [...] 10:30 AM CDT Office Visit [facility]YSICIAN GROUP UROLOGY #2 [place] [address] Sundar Tristan MD #2 [facility] [address] [place] [address] 04/03/2025 10:00 AM CDT Office Visit [facility] Medical [facility] - Gastroenterology [facility] #2 [place] [address] Feliberto Winston MD 2 [facility] [address] [place] [address] 04/03/2025 11:00 AM CDT Office Visit [facility] - Neurology - [place] #2 [place] [address] Maryann El APRN, CERTIFIED ORTHOTIST #2 [place] [address] 04/22/2025 10:30 AM CDT Office Visit [facility] - Family Medicine - [place] #2 [facility] [address] Theodora Berry, CESAR, POWER TRANSFORMER REPAIR SUPERVISOR 2 [facility] [place] [address] [address] documented as of this encounter Visit Diagnoses [...] - 19 09/03/2024 09/03/2024 09/03/2024 9:25 PM COLLECTIONS ATTORNEY documented as of this encounter Care Teams Utility Division Project Manager Relationship Specialty Start Date End Date Winifred Armstrong APRN, POWER TRANSFORMER REPAIR SUPERVISOR [address] [place] [address] PCP - General Advanced Practice Nurse 10/17/19 Micky Dickson MD [address] [place] [address] DR CASTR[address] [place] [address] PCP - General Family Medicine 09/25/23 07/04/24 Silva Vicente MD [address] [place] [address] [place] [address] PCP - General Family Medicine 07/05/24 12/29/24 Manisha Galeas MD [address] [place] [address] [place] [address] PCP - General Family Medicine 12/30/24 01/20/25 Theodora Berry, CESAR, POWER TRANSFORMER REPAIR SUPERVISOR [address] [address] PCP - General Advanced Practice Nurse 01/21/25 Mac Sher MD #2 [place] [address] Consulting Physician Neurology 09/15/15 Robert Mae MD #2 [place] [address] Consulting Physician Pulmonary Disease 10/27/22 Maryann El APRN, CERTIFIED ORTHOTIST #2 [place] [address] Nurse Practitioner Advanced Practice Nurse 12/21/22 Germania Navarro APRN, POWER TRANSFORMER REPAIR SUPERVISOR #2 [place] [address] Nurse Practitioner Advanced Practice Nurse 10/04/23 Leny Morales MD #2 [place] [address] Consulting Physician Gastroenterology 01/19/23 documented as of this encounter
--- OUTSIDE RECORDS SUMMARY | 2025-03-26 09:14 | XMS_ITS | Encounter Summary ---
Author Organization [facility] Address [address] [place] [address] Phone Care Team Providers Care Access Clerk Name Role Phone Mac Sher MD Unavailable Winifred Armstrong AIR VICE MARSHAL, DEPARTMENT ADMINISTRATOR Primary Care Provider Micky Dickson MD Primary Care Provider [phone] Robert Mae MD Unavailable Maryann El APRN, [facility] Unavailable + [phone] Germania Navarro APRN, DEPARTMENT ADMINISTRATOR Unavailable Leny Morales MD Unavailable [phone] Silva Vicente MD Primary Care Provider [phone] Manisha Galeas MD Primary Care Provider [phone] Theodora Berry AIR VICE MARSHAL, DEPARTMENT ADMINISTRATOR Primary Care Provider [phone] Reason for Visit * Reason Comments Medication Refill Encounter Details Date Type Department Care Team (Late st Contact Info) Description 11/16/2020 Refill [facility] - Neurology - [place] #1 [place] [address] Mac Sher MD #2 [place] [address] Medication Refill Social History Tobacco Use Types [...] 04/02/2025 10:30 AM CDT Office Visit [facility]IAN GROUP UROLOGY #2 [place] [address] Sundar Tristan MD #2 [facility] [address] [place] [address] 04/03/2025 10:00 AM CDT Office Visit [facility] - Gastroenterology [facility] #2 [place] [address] Feliberto Winston MD 2 [facility] [address] [place] [address] 04/03/2025 11:00 AM CDT [facility] - [place] #2 [place] [address] Maryann El, AIR VICE MARSHAL, SUPERVISOR MOLD YARD #2 [place] [address] 04/22/2025 10:30 AM CDT Office Visit [facility] - Family Medicine - [place] #2 [facility] [place] [place] [address] Theodora Berry APRN, DEPARTMENT ADMINISTRATOR 2 [facility] [place] [address] [address] documented as of this encounter Visit Diagnoses Not on filedocumented in this encounter Additional Health Concerns Infection Onset Date Last Indicated Resolved Time COVID - 19 06/23/2021 06/23/2021 06/29/2021 9:24 PM CDT COVID - 19 09/03/2024 09/03/2024 09/03/2024 9:25 PM INFORMATION MANAGER documented as of this encounter Care Teams Access Clerk Relationship Specialty Start Date End Date Winifred Armstrong APRN, DEPARTMENT ADMINISTRATOR [address] [place] [address] PCP - General Advanced Practice Nurse 10/17/19 Micky Dickson MD [address] [facility] [address] [place] [address] PCP - General Family Medicine 09/25/23 07/04/24 Silva Vicente MD [address] [place] [address] [address] [place] [address] PCP - General Family Medicine 07/05/24 12/29/24 Manisha Galeas MD [address] [facility] [address] [place] [address] PCP - General Family Medicine 12/30/24 01/20/25 Theodora Berry, CESAR, DEPARTMENT ADMINISTRATOR 2 [place] [facility] [address] [place] [address] PCP - General Advanced Practice Nurse 01/21/25 Mac Sher MD #2 [place] [address] Consulting Physician Neurology 09/15/15 Robert Mae MD #2 [place] [address] Consulting Physician Pulmonary Disease 10/27/22 Maryann El APRN, SUPERVISOR MOLD YARD #2 [place] [address] Nurse Practitioner Advanced Practice Nurse 12/21/22 Germania Navarro APRN, DEPARTMENT ADMINISTRATOR #2 [place] [address] Nurse Practitioner Advanced Practice Nurse 10/04/23 Leny Morales MD #2 [place] [address] Consulting Physician Gastroenterology 01/19/23 documented as of this encounter
--- OUTSIDE RECORDS SUMMARY | 2025-03-26 09:14 | XMS_ITS | Encounter Summary ---
Author Organization [facility] Address [address] [place] [address] Phone Care Team Providers Care Openstack Cloud Consulting Architect Name Role Phone Mac Sher MD Unavailable Winifred Armstrong DIET SUPERVISOR, PLASTICS SCIENTIST Primary Care Provider Micky Dickson MD Primary Care Provider [phone] Robert Mae MD Unavailable Maryann El APRN, [facility] Unavailable + [phone] Germania Navarro APRN, PLASTICS SCIENTIST Unavailable Leny Morales MD Unavailable [phone] Silva Vicente MD Primary Care Provider [phone] Manisha Galeas MD Primary Care Provider [phone] Theodora Berry DIET SUPERVISOR, PLASTICS SCIENTIST Primary Care Provider [phone] Reason for Visit * Reason Comments Medication Refill Encounter Details Date Type Department Care Team (Late st Contact Info) Description 12/07/2022 Refill [facility] Medical [facility] - Neurology [facility] #2 [place] [address] Mac Sher MD #2 [place] [address] Medication Refill Social History Tobacco Use Types [...] Coronavirus/COVID-19? No / Unsure 12/09/2022 1:46 PM KILN DOOR REPAIRER documented as of this encounter Plan of Treatment Upcoming Encounters Date Type Department Care Team (Late st Contact Info) Description 04/02/2025 10:30 AM CDT Office Visit [facility] UR[facility]Y #2 [place] [address] Sundar Tristan MD #2 [facility] [address] [place] [address] 04/03/2025 10:00 AM CDT Office Visit [facility] Group - Gastroenterology [facility] #2 [place] [address] Feliberto Winston MD 2 [facility] [address] [place] [address] 04/03/2025 11:00 AM CDT [facility] - [place] #2 [place] [address] Maryann El APRN, BLOWER INSULATOR #[address] [place] [address] 04/22/2025 10:30 AM CDT Office Visit [facility] - Family [facility] - [place] #[address] [place] [address] Theodora Berry APRN, PLASTICS SCIENTIST 2 [facility] [address] [facility] [address] [place] [address] documented as of this encounter Visit Diagnoses Not on filedocumented in this encounter Additional Health Concerns Infection Onset Date Last Indicated Resolved Time COVID - 19 09/03/2024 09/03/2024 09/03/2024 9:25 PM KILN DOOR REPAIRER documented as of this encounter Care Teams Openstack Cloud Consulting Architect Relationship Specialty Start Date End Date Winifred Armstrong APRN, PLASTICS SCIENTIST [address] [place] [address] PCP - General Advanced Practice Nurse 10/17/19 Micky Dickson MD [address] [place] [address] [address] [place] [address] PCP - General Family Medicine 09/25/23 07/04/24 Silva Vicente MD [address] [place] [address] [place] [address] PCP - General Family Medicine 07/05/24 12/29/24 Manisha Galeas MD [address] [place] [address] [place] [address] PCP - General Family Medicine 12/30/24 01/20/25 Theodora Berry APRN, PLASTICS SCIENTIST 2 [place] [address] [address] [address] PCP - General Advanced Practice Nurse 01/21/25 Mac Sher MD #2 [place] [address] Consulting Physician Neurology 09/15/15 Robert Mae MD #2 [place] [address] Consulting Physician Pulmonary Disease 10/27/22 Maryann El APRN, BLOWER INSULATOR #2 [place] [address] Nurse Practitioner Advanced Practice Nurse 12/21/22 Germania Navarro APRN, PLASTICS SCIENTIST #2 [place] [address] Nurse Practitioner Advanced Practice Nurse 10/04/23 Leny Morales MD #2 [place] [address] Consulting Physician Gastroenterology 01/19/23 documented as of this encounter
--- OUTSIDE RECORDS SUMMARY | 2025-03-26 09:14 | XMS_ITS | Encounter Summary ---
Author Organization [facility] Address [address] [place] [address] Phone Care Team Providers Care Transport Conductor Name Role Phone Mac Sher MD Unavailable Winifred Armstrong LEATHER PRODUCTION MACHINE OPERATOR, DRY SAND MOLDER Primary Care Provider Micky Dickson MD Primary Care Provider [phone] Robert Mae MD Unavailable Maryann El APRN, [facility] Unavailable + [phone] Germania Navarro APRN, DRY SAND MOLDER Unavailable Leny Morales MD Unavailable [phone] Silva Vicente MD Primary Care Provider [phone] Manisha Galeas MD Primary Care Provider [phone] Theodora Berry LEATHER PRODUCTION MACHINE OPERATOR, DRY SAND MOLDER Primary Care Provider [phone] Reason for Visit * Reason Comments Medication Refill Encounter Details Date Type Department Care Team (Late st Contact Info) Description 02/14/2022 Refill [facility] Medical [facility] - Neurology [facility] #2 [place] [address] Maryann El, LEATHER PRODUCTION MACHINE OPERATOR, PIZZAMAKER #2 [place] [address] Medication Refill Social History Tobacco Use Types [...] Description 04/02/2025 10:30 AM CDT Office Visit [facility] #2 [place] [address] Sundar Tristan MD #2 [facility] [address] [place] [address] 04/03/2025 10:00 AM CDT Office Visit [facility] Group - Gastroenterology - [place] #2 [place] [address] Feliberto Winston MD 2 [facility] [address] [place] [address] 04/03/2025 11:00 AM CDT [facility] - [place] #2 [place] [address] Maryann El, LEATHER PRODUCTION MACHINE OPERATOR, PIZZAMAKER #[address] [place] [address] 04/22/2025 10:30 AM CDT Office Visit [facility] - Family [facility] #[address] [place] [address] Theodora Berry, LEATHER PRODUCTION MACHINE OPERATOR, DRY SAND MOLDER 2 [facility]. [address] [place] [address] documented as of this encounter Visit Diagnoses Diagnosis Intractable chronic migraine without aura and with status migrainosus Chronic migraine without aura, with intractable migraine, so stated, with status migrainosus documented in this encounter Additional Health Concerns Infection Onset Date Last Indicated Resolved Time COVID - 19 09/03/2024 09/03/2024 09/03/2024 9:25 PM C CONSULTANT documented as of this encounter Care Teams Transport Conductor Relationship Specialty Start Date End Date Winifred Armstrong, LEATHER PRODUCTION MACHINE OPERATOR, DRY SAND MOLDER [address] [place] [address] PCP - General Advanced Practice Nurse 10/17/19 Micky Dickson MD [address] [place] [address] [address] [place] [address] PCP - General Family Medicine 09/25/23 07/04/24 Silva Vicente MD [address] [place] [address] [address] [place] [address] PCP - General Family Medicine 07/05/24 12/29/24 Manisha Galeas MD [address] [place] [address] [address]STR[address] [place] [address] PCP - General Family Medicine 12/30/24 01/20/25 Theodora Berry, CESAR, DRY SAND MOLDER [address] [address] PCP - General Advanced Practice Nurse 01/21/25 Mac Sher MD #2 [place] [address] Consulting Physician Neurology 09/15/15 Robert Mae MD #2 [place] [address] Consulting Physician Pulmonary Disease 10/27/22 Maryann El APRN, [facility] #2 [place] [address] Nurse Practitioner Advanced Practice Nurse 12/21/22 Germania Navarro APRN, DRY SAND MOLDER #2 [place] [address] Nurse Practitioner Advanced Practice Nurse 10/04/23 Leny Morales MD #2 [place] [address] Consulting Physician Gastroenterology 01/19/23 documented as of this encounter
--- OUTSIDE RECORDS SUMMARY | 2025-03-26 09:14 | XMS_ITS | Encounter Summary ---
Author Organization [facility] Address [address] [place] [address] Phone Care Team Providers Care Underground Mine Machinery Mechanic Name Role Phone Mac Sher MD Unavailable [phone] Winifred Armstrong WRAPPER COUNTER, ENGINEER BYPRODUCT Primary Care Provider Micky Dickson MD Primary Care Provider [phone] Robert Mae MD Unavailable Maryann El WRAPPER COUNTER, RELATIONSHIP CONSULTANT Unavailable + [phone] Germania Navarro APRN, ENGINEER BYPRODUCT Unavailable Leny Morales MD Unavailable [phone] Silva Vicente MD Primary Care Provider [phone] Manisha Galeas MD Primary Care Provider [phone] Theodora Berry WRAPPER COUNTER, ENGINEER BYPRODUCT Primary Care Provider [phone] Encounter Details Date Type Department Care Team (Latest Contact Info) Description 03/09/2022 Transcribe [facility] 1 [place] [address] Manuel Ventura MD [address] [place] [address] Radiculopathy, lumbar region (Primary Dx); Encounter for [...] Description 04/02/2025 10:30 AM CDT Office Visit [facility]Y #2 [place] [address] Sundar Tristan MD #2 [facility] [address] [place] [address] 04/03/2025 10:00 AM CDT Office Visit [facility] - Gastroenterology [facility] #2 [place] [address] Feliberto Winston MD 2 [facility] [address] [place] [address] 04/03/2025 11:00 AM CDT [facility] - [place] #2 [place] [address] Maryann El M, WRAPPER COUNTER, RELATIONSHIP CONSULTANT #[address] [place] [address] 04/22/2025 10:30 AM CDT Office Visit [facility] - Family Medicine - [place] #[address] [place] [address] Theodora Berry, WRAPPER COUNTER, ENGINEER BYPRODUCT 2 [facility] [place]. [address] [place] [address] documented as of this encounter Results * SARS-COV-2 BY MOLECULAR (03/14/2022 10:09 AM CDT) SARSCOV2 NOT DETECTED (Referenc e Range for this test is Not Detected) [facility] ID NOW B 03/14/2022 10:51 AM CDT [facility] Comment:This test was perfor med by a MOLECULAR, NON-PCR method Other NASAL STRUCTURE / Unknown Non-Phlebotomy Collection / Unknown 03/14/2022 10:09 AM CDT 03/14/2022 10:22 AM CDT Narrative [facility] - 03/14/2022 10:51 AM CDT This [...] information for Clinicians can be found at: https://www.fda.gov/media/301224/download Additional information for Patients can be found at: https://www.fda.gov/media/370733/download us Manuel Ventura MD MICROBIOLOGY - GENERAL ORDERABLE S Final Result [facility] #1 [place] [address] documented in this encounter Visit Diagnoses Diagnosis Radiculopathy, lumbar region- Primary Thoracic or lumbosacral neuritis or radiculitis, unspecified Encounter for preprocedure screening laboratory testing for COVID-19 documented in this encounter Additional Health Concerns Infection Onset Date Last Indicated Resolved Time COVID - 19 09/03/2024 09/03/2024 09/03/2024 9:25 PM CONDITIONING MACHINE OPERATOR documented as of this encounter Care Teams Underground Mine Machinery Mechanic Relationship Specialty Start Date End Date Winifred Armstrong APRN, ENGINEER BYPRODUCT [address] [place] [address] PCP - General Advanced Practice Nurse 10/17/19 Micky Dickson MD [address] [place] [address] [address] [place] [address] PCP - General Family Medicine 09/25/23 07/04/24 Silva Vicente MD [address] [place] [address] [address] [place] [address] PCP - General Family Medicine 07/05/24 12/29/24 Manisha Galeas MD [address] [place] [address] [address] [place] [address] PCP - General Family Medicine 12/30/24 01/20/25 Theodora Berry APRN, ENGINEER BYPRODUCT 2 [facility] [address] [place] [address] PCP - General Advanced Practice Nurse 01/21/25 Mac Sher MD #2 [place] [address] Consulting Physician Neurology 09/15/15 Robert Mae MD #2 [place] [address] Consulting Physician Pulmonary Disease 10/27/22 Maryann El APRN, RELATIONSHIP CONSULTANT #2 [place] [address] Nurse Practitioner Advanced Practice Nurse 12/21/22 Germania Navarro APRN, ENGINEER BYPRODUCT #2 [place] [address] Nurse Practitioner Advanced Practice Nurse 10/04/23 Leny Morales MD #2 [place] [address] Consulting Physician Gastroenterology 01/19/23 documented as of this encounter
--- OUTSIDE RECORDS SUMMARY | 2025-03-26 09:14 | XMS_ITS | Encounter Summary ---
Author Organization [facility] Address [address] [place] [address] Phone Care Team Providers Care Software Systems Architect Name Role Phone Mac Sher MD Unavailable [phone] Winifred Armstrong SOIL CONSERVATIONIST, LINSEED OIL TEMPERER Primary Care Provider Micky Dickson MD Primary Care Provider [phone] Robert Mae MD Unavailable Maryann El SOIL CONSERVATIONIST, OVERNIGHT CASHIER Unavailable + [phone] Germania Navarro APRN, LINSEED OIL TEMPERER Unavailable Leny Morales MD Unavailable [phone] Silva Vicente MD Primary Care Provider [phone] Manisha Galeas MD Primary Care Provider [phone] Theodora Berry SOIL CONSERVATIONIST, LINSEED OIL TEMPERER Primary Care Provider [phone] Encounter Details Date Type Department Care Team (Latest Contact Info) Description 09/28/[address] [facility] 1 [place] [address] Manule Ventura MD [address] [place] [address] Pre-op testing (Primary Dx) Social History Tobacco [...] COVID-19? No / Unsure 10/01/2021 9:52 AM SURGICAL RN documented as of this encounter Plan of Treatment Upcoming Encounters Date Type Department Care Team (Late st Contact Info) Description 04/02/2025 10:30 AM CDT Office Visit [facility] UR[facility]Y #2 [place] [address] Sundar Tristan MD #2 [facility] [address] [place] [address] 04/03/2025 10:00 AM CDT Office Visit [facility] - Gastroenterology - [place] #2 [place] [address] Feliberto Winston MD 2 [facility] [address] [place] [address] 04/03/2025 11:00 AM CDT Office Visit [facility] Group - Neurology - [place] #2 [place] [address] Maryann El APRN, OVERNIGHT CASHIER #2 [place] [address] 04/22/2025 10:30 AM CDT [facility] Visit [facility] - Family Medicine - [place] #[address] [place] [address] Theodora Berry SOIL CONSERVATIONIST, LINSEED OIL TEMPERER [address] [facility] [address] [place] [address] documented as of this encounter Results * TYPE & SCREEN (CROSSMATCH CONVERTIBLE) (10/01/2021 10:01 AM SURGICAL RN) ABO TYPING A 10/01/2021 11:48 AM SURGICAL RN [facility] BLOOD BANK RH Negative 10/01/2021 11:48 AM SURGICAL RN [facility] BLOOD BANK ABSC Negative 10/01/2021 11:48 AM SURGICAL RN [facility] BLOOD BANK Blood Venipuncture / Unknown 10/01/2021 10:01 AM SURGICAL RN 10/01/2021 10:06 AM SURGICAL RN us Manuel Ventura MD BLOOD BANK ORDERABLES Edited Res ult - Final [facility] BLOOD BANK #1 [place] [address] documented in this encounter Visit Diagnoses Diagnosis Pre-op testing- Primary Preoperative examination, unspecified documented in this encounter Additional Health Concerns Infection Onset Date Last Indicated Resolved Time COVID - 19 09/03/2024 09/03/2024 09/03/2024 9:25 PM SURGICAL RN documented as of this encounter Care Teams Software Systems Architect Relationship Specialty Start Date End Date Winifred Armstrong APRN, LINSEED OIL TEMPERER [address] [place] [address] PCP - General Advanced Practice Nurse 10/17/19 Micky Dickson MD [address] [place] [address] [address] CASTR[address] [place] [address] PCP - General Family Medicine 09/25/23 07/04/24 Silva Vicente MD [address] [place] [address] [facility] [address] [place] [address] PCP - General Family Medicine 07/05/24 12/29/24 Manisha Galeas MD [address] [place] [address] [facility] [address] [place] [address] PCP - General Family Medicine 12/30/24 01/20/25 Theodora Berry APRN, LINSEED OIL TEMPERER [address] [address] PCP - General Advanced Practice Nurse 01/21/25 Mac Sher MD #2 [place] [address] Consulting Physician Neurology 09/15/15 Robert Mae MD #2 [place] [address] Consulting Physician Pulmonary Disease 10/27/22 Maryann El APRN, OVERNIGHT CASHIER #2 [place] [address] Nurse Practitioner Advanced Practice Nurse 12/21/22 Germania Navarro APRN, LINSEED OIL TEMPERER #2 [place] [address] Nurse Practitioner Advanced Practice Nurse 10/04/23 Leny Morales MD #2 [place] [address] Consulting Physician Gastroenterology 01/19/23 documented as of this encounter
--- OUTSIDE RECORDS SUMMARY | 2025-03-26 09:14 | XMS_ITS | Encounter Summary ---
Author Organization [facility] Address [address] [place] [address] Phone Care Team Providers Care Duck Farmer Name Role Phone Mac Sher MD Unavailable [phone] Winifred Armstrong FIRST BREAKER FEEDER, CALL MANAGER Primary Care Provider Micky Dickson MD Primary Care Provider [phone] Robert Mae MD Unavailable Maryann El APRN, [facility] Unavailable + [phone] Germania Navarro APRN, CALL MANAGER Unavailable Leny Morales MD Unavailable [phone] Silva Vicente MD Primary Care Provider [phone] Manisha Galeas MD Primary Care Provider [phone] Theodora Berry FIRST BREAKER FEEDER, CALL MANAGER Primary Care Provider [phone] Reason for Visit * Reason Comments Medication Refill Encounter Details Date Type Department Care Team (Late st Contact Info) Description 05/09/[address] [facility] Medical [facility] - Neurology [facility] #2 [place] [address] Mac Sher MD #2 [place] [address] Medication Refill Social History Tobacco Use Types [...] 04/02/2025 10:30 AM CDT Office Visit [facility] UROLOGY #2 [place] [address] Sundar Tristan MD #2 [facility] [address] [place] [address] 04/03/2025 10:00 AM CDT Office Visit [facility] Medical Group - Gastroenterology - [place] #2 [place] [address] Feliberto Winston MD 2 [facility] [address] [place] [address] 04/03/2025 11:00 AM CDT [facility] - [place] #2 [place] [address] Maryann El APRN, PRESSURE SUPERVISOR #2 [place] [address] 04/22/2025 10:30 AM CDT Office Visit [facility] - [place] #[address] [place] [address] Theodora Berry, FIRST BREAKER FEEDER, CALL MANAGER [address] [facility] [address] [place] [address] documented as of this encounter Visit Diagnoses Not on filedocumented in this encounter Additional Health Concerns Infection Onset Date Last Indicated Resolved Time COVID - 19 09/03/2024 09/03/2024 09/03/2024 9:25 PM LANDSCAPE MANAGER documented as of this encounter Care Teams Duck Farmer Relationship Specialty Start Date End Date Winifred Armstrong APRN, CALL MANAGER [address] [place] [address] PCP - General Advanced Practice Nurse 10/17/19 Micky Dickson MD [address] [place] [address] [address] [place] [address] PCP - General Family Medicine 09/25/23 07/04/24 Silva Vicente MD [address] [place] [address] [place] [address] PCP - General Family Medicine 07/05/24 12/29/24 Manisha Galeas MD [address] [place] [address] [place] [address] PCP - General Family Medicine 12/30/24 01/20/25 Theodora Berry, FIRST BREAKER FEEDER, CALL MANAGER 2 [facility] [address] [place] [address] PCP - General Advanced Practice Nurse 01/21/25 Mac Sher MD #2 [place] [address] Consulting Physician Neurology 09/15/15 Robert Mae MD #2 [place] [address] Consulting Physician Pulmonary Disease 10/27/22 Maryann El APRN, PRESSURE SUPERVISOR #2 [place] [address] Nurse Practitioner Advanced Practice Nurse 12/21/22 Germania Navarro APRN, CALL MANAGER #2 [place] [address] Nurse Practitioner Advanced Practice Nurse 10/04/23 Leny Morales MD #2 [place] [address] Consulting Physician Gastroenterology 01/19/23 documented as of this encounter
--- OUTSIDE RECORDS SUMMARY | 2025-03-26 09:14 | XMS_ITS | Encounter Summary ---
Author Organization [facility] Address [address] [place] [address] Phone Care Team Providers Care Clinical Biochemical Geneticist Name Role Phone Mac Sher MD Unavailable [phone] Winifred Armstrong LINE ASSIGNER, ELECTRONIC RESOURCES LIBRARIAN Primary Care Provider Micky Dickson MD Primary Care Provider [phone] Robert Mae MD Unavailable Maryann El APRN, [facility] Unavailable + [phone] Germania Navarro APRN, ELECTRONIC RESOURCES LIBRARIAN Unavailable Leny Morales MD Unavailable [phone] Silva Vicente MD Primary Care Provider [phone] Manisha Galeas MD Primary Care Provider [phone] Theodora Berry LINE ASSIGNER, ELECTRONIC RESOURCES LIBRARIAN Primary Care Provider [phone] Reason for Visit * Reason Comments Medication Refill Encounter Details Date Type Department Care Team (Late st Contact Info) Description 06/21/2021 Refill [facility] Medical [facility] - Neurology [facility] #2 [place] [address] Mac Sher MD #2 [place] [address] Medication Refill Social History Tobacco Use Types [...] Description 04/02/2025 10:30 AM CDT Office Visit [facility] UROLOGY #2 [place] [address] Sundar Tristan MD #2 [facility] [address] [place] [address] 04/03/2025 10:00 AM CDT Office Visit [facility] Medical Group - Gastroenterology - [place] #2 [place] [address] Feliberto Winston MD 2 [facility] [address] [place] [address] 04/03/2025 11:00 AM CDT Office Visit [facility] Group - Neurology - [place] #2 [place] [address] Maryann El APRN, STOPPER MAKER HELPER #2 [place] [address] 04/22/2025 10:30 AM CDT Office [facility] - [place] #[address] [place] [address] Theodora Berry, LINE ASSIGNER, ELECTRONIC RESOURCES LIBRARIAN [address] [address] documented as of this encounter Visit Diagnoses Not on filedocumented in this encounter Additional Health Concerns Infection Onset Date Last Indicated Resolved Time COVID - 19 06/23/2021 06/23/2021 06/29/2021 9:24 PM CDT COVID - 19 09/03/2024 09/03/2024 09/03/2024 9:25 PM BLUEPRINT REPRODUCER documented as of this encounter Care Teams Clinical Biochemical Geneticist Relationship Specialty Start Date End Date Winifred Armstrong APRN, ELECTRONIC RESOURCES LIBRARIAN [address] [place] [address] PCP - General Advanced Practice Nurse 10/17/19 Micky Dickson MD [address] [place] [address] [address] [place] [address] PCP - General Family Medicine 09/25/23 07/04/24 Silva Vicente MD [address] [place] [address] [address] [place], [place] [address] [address] PCP - General Family Medicine 07/05/24 12/29/24 Manisha Galeas MD [address] [place] [address] [address] [place] [address] PCP - General Family Medicine 12/30/24 01/20/25 Theodora Berry, LINE ASSIGNER, ELECTRONIC RESOURCES LIBRARIAN [address] [address] PCP - General Advanced Practice Nurse 01/21/25 Mac Sher MD #2 [place] [address] Consulting Physician Neurology 09/15/15 Robert Mae MD #2 [place] [address] Consulting Physician Pulmonary Disease 10/27/22 Maryann El APRN, STOPPER MAKER HELPER #2 [place] [address] Nurse Practitioner Advanced Practice Nurse 12/21/22 Germania Navarro, LINE ASSIGNER, ELECTRONIC RESOURCES LIBRARIAN #2 [place] [address] Nurse Practitioner Advanced Practice Nurse 10/04/23 Leny Morales MD #2 [place] [address] Consulting Physician Gastroenterology 01/19/23 documented as of this encounter
--- OUTSIDE RECORDS SUMMARY | 2025-03-26 09:15 | XMS_ITS | Encounter Summary ---
Author Organization [facility] Address [address] [place] [address] Phone Care Team Providers Care Manager Rehab Name Role Phone Mac Sher MD Unavailable Winifred Armstrong HIDE SORTER, STAMP PRESS OPERATOR Primary Care Provider Micky Dickson MD Primary Care Provider Robert Mae MD Unavailable Maryann El APRN, [facility] Unavailable + [phone] Germania Navarro APRN, STAMP PRESS OPERATOR Unavailable Leny Moralse MD Unavailable [phone] Silva Vicente MD Primary Care Provider [phone] Manisha Galeas MD Primary Care Provider [phone] Theodora Berry HIDE SORTER, STAMP PRESS OPERATOR Primary Care Provider [phone] Reason for Visit * Reason Comments Medication Refill Encounter Details Date Type Department Care Team (Late st Contact Info) Description 06/22/2023 Refill [facility] - Gastroenterology - [place] #2 [place] [address] Germania Navarro APRN, STAMP PRESS OPERATOR #2 [place] [address] Medication Refill Social History Tobacco Use Types [...] PM CDT Medication [facility] standing order for pediatric and adult patients. documented in this encounter Plan of Treatment Upcoming Encounters Date Type Department Care Team (Late st Contact Info) Description 04/02/2025 10:30 AM CDT Office Visit [facility] #2 [place] [address] Sundar Tristan MD #[address] [address] 04/03/2025 10:00 AM CDT Office Visit [facility] - Gastroenterology - [place] #2 [place] [address] Feliberto Winston MD 2 [facility] [address] [place] [address] 04/03/2025 11:00 AM CDT [facility] [place] #2 [place] [address] Maryann El, HIDE SORTER, RN SUPPORT SERVICES #2 [place] [address] 04/22/2025 10:30 AM CDT Office Visit [facility] - Family Medicine - [place] #2 [place] [address] Theodora Berry, HIDE SORTER, STAMP PRESS OPERATOR 2 [facility]. [address] [place] [address] documented as of this encounter Visit Diagnoses Not on filedocumented in this encounter Additional Health Concerns Infection Onset Date Last Indicated Resolved Time COVID - 19 09/03/2024 09/03/2024 09/03/2024 9:25 PM HISTORY TEACHER documented as of this encounter Care Teams Manager Rehab Relationship Specialty Start Date End Date Winifred Armstrong, HIDE SORTER, STAMP PRESS OPERATOR [address] [place] [address] PCP - General Advanced Practice Nurse 10/17/19 Micky Dickson MD [address] [place] [address] [address] [place] [address] PCP - General Family Medicine 09/25/23 07/04/24 Silva Vicente MD [address] [place] [address] [place] [address] PCP - General Family Medicine 07/05/24 12/29/24 Manisha Galeas MD [address] [place] [address] [place] [address] PCP - General Family Medicine 12/30/24 01/20/25 Theodora Berry, HIDE SORTER, STAMP PRESS OPERATOR 2 [facility] [place] [address] [address] PCP - General Advanced Practice Nurse 01/21/25 Mac Sher MD #[address] [place] [address] Consulting Physician Neurology 09/15/15 Robert Mae MD #2 [place] [address] Consulting Physician Pulmonary Disease 10/27/22 Maryann El APRN, RN SUPPORT SERVICES #2 [place] [address] Nurse Practitioner Advanced Practice Nurse 12/21/22 Germania Navarro APRN, STAMP PRESS OPERATOR #2 [place] [address] Nurse Practitioner Advanced Practice Nurse 10/04/23 Leny Morales MD #[address] [place] [address] Consulting Physician Gastroenterology 01/19/23 documented as of this encounter
--- OUTSIDE RECORDS SUMMARY | 2025-03-26 09:15 | XMS_ITS | Encounter Summary ---
Author Organization [facility] Address [address] [place] [address] Phone Care Team Providers Care Bull Chain Operator Name Role Phone Mac Sher MD Unavailable [phone] Robert Mae MD Unavailable Maryann El APRN, DRAW BENCH OPERATOR HELPER Unavailable Germania Navarro APRN, YARN CLEANER Unavailable Leny Morales MD Unavailable [phone] Silva Vicente MD Primary Care Provider [phone] Manisha Galeas MD Primary Care Provider [phone] Theodora Berry CASH APPLICATION CLERK, YARN CLEANER Primary Care Provider Reason for Visit * Reason Comments Medication Refill Encounter Details Date Type Department Care Team (Late st Contact Info) Description 08/13/2024 Refill [facility] - Gastroenterology - [place] #2 [place] [address] Germania Navarro APRN, YARN CLEANER #2 [place] [address] Medication Refill Social History Tobacco Use Types Packs/Day Years Used Date Smoking Tobacco: Former Cigarettes 0.5 25 Smokeless Tobacco: Never Comments:occassional Alcohol Use Standard Drinks/Week Comments Not Currently 0 (1 standard drink = 0.6 oz pur e alcohol) [facility] Utilities Answer Date Recorded In the past [...] declined 04/16/2024 How often do you attend confucianist or caodaism serv ices? Patient declined 04/16/2024 Do you belong to any clubs o r organizations such as confucianist groups, unions, fraternal or athletic groups, or [...] medical care, and heating? Patient declined 04/16/2024 [facility] [place] of Occupat ional Health - Occupational Stress [...] time in the past 12 m [facility], were you homeless or living in a nursing home (including now)? Patient declined 04/16/2024 Sexually Active [...] Visit [facility] #2 [place] [address] Sundar Tristan MD #2 [facility] [address] [place] [address] 04/03/2025 10:00 AM CDT [facility] [place] #2 [place] [address] Feliberto Winston MD 2 [facility] [address] [place] [address] 04/03/2025 11:00 AM CDT [facility] [place] #2 [place] [address] Maryann El, CASH APPLICATION CLERK, DRAW BENCH OPERATOR HELPER #2 [place] [address] 04/22/2025 10:30 AM CDT [facility] [place] #2 [place] [address] Theodora Berry, CASH APPLICATION CLERK, YARN CLEANER 2 [facility]. [address] [place] [address] documented as of this encounter Visit Diagnoses Not on filedocumented in this encounter Additional Health Concerns Infection Onset Date Last Indicated Resolved Time COVID - 19 09/03/2024 09/03/2024 09/03/2024 9:25 PM MEDICAL INSURANCE CODER documented as of this encounter Care Teams Bull Chain Operator Relationship Specialty Start Date End Date Silva Vicente MD 4 [facility] [address] [place] [address] PCP - General Family Medicine 07/05/24 12/29/24 Manisha Galeas MD [address] [place] [address] [address] [place] [address] PCP - General Family Medicine 12/30/24 01/20/25 Theodora Berry, CASH APPLICATION CLERK, YARN CLEANER 2 [facility] [address] [place] [address] PCP - General Advanced Practice Nurse 01/21/25 Mac Sher MD #[address] [place] [address] Consulting Physician Neurology 09/15/15 Robert Mae MD #[address] [place] [address] Consulting Physician Pulmonary Disease 10/27/22 Maryann El APRN, DRAW BENCH OPERATOR HELPER #[address] [place] [address] Nurse Practitioner Advanced Practice Nurse 12/21/22 Germania Navarro APRN, YARN CLEANER #2 [place] [address] Nurse Practitioner Advanced Practice Nurse 10/04/23 Leny Morales MD #2 [place] [address] Consulting Physician Gastroenterology 01/19/23 documented as of this encounter
--- OUTSIDE RECORDS SUMMARY | 2025-03-26 09:15 | XMS_ITS | Encounter Summary ---
Author Organization [facility] Address [address] [place] [address] Phone Care Team Providers Care Digital Research Analyst Name Role Phone Mac Sher MD Unavailable Winifred Armstrong GAS WORKER, PRINTED CIRCUIT BOARDS PINNER Primary Care Provider Micky Dickson MD Primary Care Provider [phone] Robert Mae MD Unavailable Maryann El APRN, [facility] Unavailable + [phone] Germania Navarro APRN, PRINTED CIRCUIT BOARDS PINNER Unavailable Leny Morales MD Unavailable [phone] Silva Vicente MD Primary Care Provider [phone] Manisha Galeas MD Primary Care Provider [phone] Theodora Berry GAS WORKER, PRINTED CIRCUIT BOARDS PINNER Primary Care Provider [phone] Reason for Visit * Reason Comments Medication Refill Encounter Details Date Type Department Care Team (Late st Contact Info) Description 08/14/2023 Refill [facility] Medical [facility] - Neurology [facility] #2 [place] [address] Maryann El APRN, TERADATA DEVELOPER #2 [place] [address] Medication Refill Social History Tobacco Use Types [...] Dept 05/26/23 Procedure Visit [facility] 05/09/23 Telemedicine Mac Sher MD [facility] 03/01/23 Procedure Visit Mac Sher MD [facility] 02/20/23 Office Visit Maryann El APRN, TERADATA DEVELOPER [facility] 12/21/22 Office Visit Maryann El APRN, TERADATA DEVELOPER [facility] 12/09/22 Procedure Visit Mac Sher MD [facility] Neurology [place] [facility] 09/02/22 Procedure Visit Mac Sher MD [facility] Neurology [facility] Showing recent visits within past 365 days and meeting all other requirements Future Appointments Date Type Provider Dept 08/25/23 Appointment Mac Sher MD [facility] Neurology [place] [facility] Showing future appointments within next 90 days and meeting all other requirements documented in this encounter Plan of Treatment Upcoming Encounters Date Type Department Care Team (Late st Contact Info) Description 04/02/2025 10:30 AM CDT Office Visit [facility] #2 [place] [address] Sundar Tristan MD #2 [facility] [address] [place] [address] 04/03/2025 10:00 AM CDT Office Visit [facility] - Gastroenterology - [place] #2 [place] [address] Feliberto Winston MD 2 [facility] [address] [place] [address] 04/03/2025 11:00 AM CDT Office Visit [facility] Group - Neurology - [place] #2 [place] [address] Maryann El, GAS WORKER, TERADATA DEVELOPER #2 [facility] [place] [address] 04/22/2025 10:30 AM CDT Office Visit [facility] Medical [facility] - Family Medicine - [place] #2 [place] [address] Theodora Berry, GAS WORKER, PRINTED CIRCUIT BOARDS PINNER 2 [facility] [address] [place] [address] documented as of this encounter Visit Diagnoses Diagnosis Essential tremor Essential and other specified forms of tremor documented in this encounter Additional Health Concerns Infection Onset Date Last Indicated Resolved Time COVID - 19 09/03/2024 09/03/2024 09/03/2024 9:25 PM MERGERS AND ACQUISITIONS CONSULTANT documented as of this encounter Care Teams Digital Research Analyst Relationship Specialty Start Date End Date Winifred Armstrong APRN, PRINTED CIRCUIT BOARDS PINNER [address] [place] [address] PCP - General Advanced Practice Nurse 10/17/19 Micky Dickson MD [address] [place] [address] [address]STR[address] [place] [address] PCP - General Family Medicine 09/25/23 07/04/24 Silva Vicente MD [address] [place] [address] [address]STR[address] [place] [address] PCP - General Family Medicine 07/05/24 12/29/24 Manisha Galeas MD [address] [place] [address] [address] [place] [address] PCP - General Family Medicine 12/30/24 01/20/25 Theodora Berry APRN, PRINTED CIRCUIT BOARDS PINNER 2 [facility] [place] [address] [address] PCP - General Advanced Practice Nurse 01/21/25 Mac Sher MD #2 [place] [address] Consulting Physician Neurology 09/15/15 Robert Mae MD #2 [place] [address] Consulting Physician Pulmonary Disease 10/27/22 Maryann El APRN, TERADATA DEVELOPER #2 [place] [address] Nurse Practitioner Advanced Practice Nurse 12/21/22 Germania Navarro APRN, PRINTED CIRCUIT BOARDS PINNER #2 [place] [address] Nurse Practitioner Advanced Practice Nurse 10/04/23 Leny Morales MD #2 [place] [address] Consulting Physician Gastroenterology 01/19/23 documented as of this encounter
--- OUTSIDE RECORDS SUMMARY | 2025-03-26 09:15 | XMS_ITS | Encounter Summary ---
Author Organization [facility] Address [address] [place] [address] Phone Care Team Providers Care Track Welder Name Role Phone Mac Sher MD Unavailable Winifred Armstrong RING SEWER, LIP READING TEACHER Primary Care Provider Micky Dickson MD Primary Care Provider [phone] Robert Mae MD Unavailable Maryann El APRN, [facility] Unavailable + [phone] Germania Navarro APRN, LIP READING TEACHER Unavailable Leny Morales MD Unavailable [phone] Silva Vicente MD Primary Care Provider [phone] Manisha Galeas MD Primary Care Provider Theodora Berry RING SEWER, LIP READING TEACHER Primary Care Provider [phone] Reason for Visit * Reason Comments Medication Refill Encounter Details Date Type Department Care Team (Late st Contact Info) Description 08/04/2021 Refill [facility] Medical [facility] - Neurology [facility] #2 [place] [address] Mac Sher MD #2 [place] [address] Medication Refill Social History Tobacco Use Types [...] [facility] UROLOGY #2 [place] [address] Sundar Tristan MD #2 [facility] [address] [place] [address] 04/03/2025 10:00 AM CDT Office Visit [facility] Medical Group - Gastroenterology - [place] [employer] #2 [place] [address] Feliberto Winston MD 2 [facility] [address] [place] [address] 04/03/2025 11:00 AM CDT Office Visit [facility] Medical Group - Neurology - [place] [employer] #2 [place] [address] Maryann El APRN, MILLWRIGHT HELPER #2 [place] [address] 04/22/2025 10:30 AM CDT Office Visit [facility] - Family [facility] - [place] [employer] #[address] [place] [address] Theodora Berry, RING SEWER, LIP READING TEACHER [address] [facility] [address] [place] [address] documented as of this encounter Visit Diagnoses Not on filedocumented in this encounter Additional Health Concerns Infection Onset Date Last Indicated Resolved Time COVID - 19 09/03/2024 09/03/2024 09/03/2024 9:25 PM JAVA JSF DEVELOPER documented as of this encounter Care Teams Track Welder Relationship Specialty Start Date End Date Winifred Armstrong APRN, LIP READING TEACHER [address] [place] [address] PCP - General Advanced Practice Nurse 10/17/19 Micky Dickson MD [address] [facility] [address] [place] [address] PCP - General Family Medicine 09/25/23 07/04/24 Silva Vicente MD [address] [facility] [address] [place] [address] PCP - General Family Medicine 07/05/24 12/29/24 Manisha Galeas MD [address] [facility] [address] [place] [address] PCP - General Family Medicine 12/30/24 01/20/25 Theodora Berry, RING SEWER, LIP READING TEACHER [address] [facility] [address] [place] [address] PCP - General Advanced Practice Nurse 01/21/25 Mac Sher MD #2 [place] [address] Consulting Physician Neurology 09/15/15 Robert Mae MD #2 [place] [address] Consulting Physician Pulmonary Disease 10/27/22 Maryann El APRN, MILLWRIGHT HELPER #2 [place] [address] Nurse Practitioner Advanced Practice Nurse 12/21/22 Germania Navarro APRN, LIP READING TEACHER #2 [place] [address] Nurse Practitioner Advanced Practice Nurse 10/04/23 Leny Morales MD #2 [place] [address] Consulting Physician Gastroenterology 01/19/23 documented as of this encounter
--- OUTSIDE RECORDS SUMMARY | 2025-03-26 09:15 | XMS_ITS | Encounter Summary ---
Author Organization [facility] Address [address] [place] [address] Phone Care Team Providers Care Communications Engineering Technician Name Role Phone Mac Sher MD Unavailable Winifred Armstrong EKG TECHNICIAN, PROCESSING SUPERVISOR Primary Care Provider Micky Dickson MD Primary Care Provider [phone] Robert Mae MD Unavailable Maryann El APRN, [facility] Unavailable + [phone] Germania Navarro APRN, PROCESSING SUPERVISOR Unavailable Leny Morales MD Unavailable [phone] Silva Vicente MD Primary Care Provider [phone] Manisha Galeas MD Primary Care Provider [phone] Theodora Berry EKG TECHNICIAN, PROCESSING SUPERVISOR Primary Care Provider [phone] Encounter Details Date Type Department Care Team (Late st Contact Info) Description 03/16/2022 Transcribe Orders [facility] Central Scheduling [address] [place] [address] Manuel Ventura MD [address] [place] [address] Social History Tobacco Use Types Packs/Day Years [...] 10:30 AM CDT Office Visit [facility]YSICIAN GROUP UROLOGY #2 [place] [address] Sundar Tristan MD #2 [facility] [address] [place] [address] 04/03/2025 10:00 AM CDT Office Visit [facility] - Gastroenterology - [place] #2 [place] [address] Feliberto Winston MD 2 [facility] [address] [place] [address] 04/03/2025 11:00 AM CDT Office Visit [facility] - Neurology - [place] #2 [place] [address] Maryann El APRN, BRICK SORTER #2 [place] [address] 04/22/2025 10:30 AM CDT Office Visit [facility] - Family [facility] - [place] #[address] [place] [address] Theodora Berry, EKG TECHNICIAN, PROCESSING SUPERVISOR 2 [place] [facility] [address] [place] [address] documented as of this encounter Visit Diagnoses Not on filedocumented in this encounter Additional Health Concerns Infection Onset Date Last Indicated Resolved Time COVID - 19 09/03/2024 09/03/2024 09/03/2024 9:25 PM CARDIOVASCULAR INVASIVE SPECIALIST documented as of this encounter Care Teams Communications Engineering Technician Relationship Specialty Start Date End Date Winifred Armstrong APRN, PROCESSING SUPERVISOR [address] [place] [address] PCP - General Advanced Practice Nurse 10/17/19 Micky Dickson MD [address] [place] [address] [address] CASTRO [address] [place] [address] PCP - General Family Medicine 09/25/23 07/04/24 Silva Vicente MD [address] [place] [address] [address] CASTRO [address] [place] [address] PCP - General Family Medicine 07/05/24 12/29/24 Manisha Galeas MD [address] [place] [address] [address] CASTRO [address] [place] [address] PCP - General Family Medicine 12/30/24 01/20/25 Theodora Berry, EKG TECHNICIAN, PROCESSING SUPERVISOR 2 [facility] [place] [facility] [address] [place] [address] PCP - General Advanced Practice Nurse 01/21/25 Mac Sher MD #2 [place] [address] Consulting Physician Neurology 09/15/15 Robert Mae MD #2 [place] [address] Consulting Physician Pulmonary Disease 10/27/22 Maryann El APRN, BRICK SORTER #2 [place] [address] Nurse Practitioner Advanced Practice Nurse 12/21/22 Germania Navarro APRN, PROCESSING SUPERVISOR #2 [place] [address] Nurse Practitioner Advanced Practice Nurse 10/04/23 Leny Morales MD #2 [place] [address] Consulting Physician Gastroenterology 01/19/23 documented as of this encounter
--- OUTSIDE RECORDS SUMMARY | 2025-03-26 09:15 | XMS_ITS | Encounter Summary ---
Author Organization [facility] Address [address] [place] [address] Phone Care Team Providers Care Steel Shot Header Operator Name Role Phone Mac Sher MD Unavailable [phone] Winifred Armstrong LOW HEEL BUILDER, CUSTOMER EXPERIENCE RETAIL CLERK Primary Care Provider Micky Dickson MD Primary Care Provider [phone] Robert Mae MD Unavailable Maryann El APRN, [facility] Unavailable + [phone] Germania Navarro APRN, CUSTOMER EXPERIENCE RETAIL CLERK Unavailable Leny Morales MD Unavailable [phone] Silva Vicente MD Primary Care Provider [phone] Manisha Galeas MD Primary Care Provider [phone] Theodora Berry LOW HEEL BUILDER, CUSTOMER EXPERIENCE RETAIL CLERK Primary Care Provider [phone] Reason for Visit * Reason Comments Medication Refill Encounter Details Date Type Department Care Team (Late st Contact Info) Description 08/17/2023 Refill [facility] - Neurology [facility] #2 [place] [address] Mac Sher MD #2 [place] [address] Medication Refill Social History Tobacco Use Types [...] Dept 05/26/23 Procedure Visit Mac Sher MD [facility] Neurology [facility] [place] 05/09/23 Telemedicine Mac [facility] MD [facility] 03/01/23 Procedure Visit Mac [facility] [place] 02/20/23 Office Visit Maryann El APRN, CNS [facility] 12/21/22 Office Visit Maryann El APRN, CNS [facility] 12/09/22 Procedure Visit Mac [facility] 09/02/22 Procedure Visit Mac Sher MD [facility] Neurology [facility] Showing recent visits within past 365 days and meeting all other requirements Future Appointments Date Type Provider Dept 08/25/23 Appointment Mac Sher MD [facility] Neurology [facility] Showing future appointments within next 90 days and meeting all other requirements documented in this encounter Plan of Treatment Upcoming Encounters Date Type Department Care Team (Late st Contact Info) Description 04/02/2025 10:30 AM CDT Office Visit [facility] #2 [place] [address] Sundar Tristan MD #2 [facility] [address] [place] [address] 04/03/2025 10:00 AM CDT Office Visit [facility] - Gastroenterology - [place] #2 [facility] [place] [address] Feliberto Winston MD 2 [facility] [address] [place] [address] 04/03/2025 11:00 AM CDT Office Visit [facility] Medical [facility] - Neurology - [place] #2 [facility] [place] [address] Maryann El APRN, RESEARCH SPECIALIST #2 [facility] [place] [address] 04/22/2025 10:30 AM CDT Office Visit [facility] Medical [facility] - Family Medicine - [place] #2 [place] [address] Theodora Berry, LOW HEEL BUILDER, CUSTOMER EXPERIENCE RETAIL CLERK 2 [facility] [address] [place] [address] documented as of this encounter Visit Diagnoses Diagnosis Chronic migraine w/o aura w/o status migrainosus, not intractable Chronic migraine without aura, without mention of intractable migraine without mention of status migrainosus documented in this encounter Additional Health Concerns Infection Onset Date Last Indicated Resolved Time COVID - 19 09/03/2024 09/03/2024 09/03/2024 9:25 PM IRRIGATION WORKER documented as of this encounter Care Teams Steel Shot Header Operator Relationship Specialty Start Date End Date Winifred Armstrong, LOW HEEL BUILDER, CUSTOMER EXPERIENCE RETAIL CLERK [address] [place] [address] PCP - General Advanced Practice Nurse 10/17/19 Micky Dickson MD [address] [facility] [address] [place] [address] PCP - General Family Medicine 09/25/23 07/04/24 Silva Vicente MD [address] [facility] [address] [place] [address] PCP - General Family Medicine 07/05/24 12/29/24 Manisha Galeas MD [address] [facility] [address] [place] [address] PCP - General Family Medicine 12/30/24 01/20/25 Theodora Berry, LOW HEEL BUILDER, CUSTOMER EXPERIENCE RETAIL CLERK 2 [facility] [address] [place] [address] PCP - General Advanced Practice Nurse 01/21/25 Mac Sher MD #2 [place] [address] Consulting Physician Neurology 09/15/15 Robert Mae MD #2 [place] [address] Consulting Physician Pulmonary Disease 10/27/22 Maryann El APRN, RESEARCH SPECIALIST #2 [place] [address] Nurse Practitioner Advanced Practice Nurse 12/21/22 Germania Navarro APRN, CUSTOMER EXPERIENCE RETAIL CLERK #2 [place] [address] Nurse Practitioner Advanced Practice Nurse 10/04/23 Leny Morales MD #2 [place] [address] Consulting Physician Gastroenterology 01/19/23 documented as of this encounter
--- OUTSIDE RECORDS SUMMARY | 2025-03-26 09:15 | XMS_ITS | Encounter Summary ---
Author Organization [facility] Address [address] [place] [address] Phone Care Team Providers Care Lean Process Deployment Consultant Name Role Phone Mac Sher MD Unavailable Winifred Armstrong ELECTRICAL FITTER, RESEARCH ASST Primary Care Provider Micky Dickson MD Primary Care Provider Robert Mae MD Unavailable Maryann El APRN, [facility] Unavailable + [phone] Germania Navarro APRN, RESEARCH ASST Unavailable Leny Morales MD Unavailable [phone] Silva Vicente MD Primary Care Provider [phone] Manisha Galeas MD Primary Care Provider [phone] Theodora Berry ELECTRICAL FITTER, RESEARCH ASST Primary Care Provider Reason for Visit * Reason Comments Medication Refill Encounter Details Date Type Department Care Team (Late st Contact Info) Description 08/15/2023 Refill [facility] - Gastroenterology - [place] #2 [place] [address] Germania Navarro APRN, RESEARCH ASST #2 [place] [address] Medication Refill Social History Tobacco Use Types [...] 10:30 AM CDT Office Visit [facility] PHYSICIAN GROUP UROLOGY #2 [place] [address] Sundar Tristan MD #2 [facility] [address] [place] [address] 04/03/2025 10:00 AM CDT Office Visit [facility] - [facility] #2 [place] [address] Feliberto Winston MD 2 [facility] [address] [place] [address] 04/03/2025 11:00 AM CDT [facility] - [place] #[address] [place] [facility] [address] Maryann El, ELECTRICAL FITTER, DEVELOPMENT COORDINATOR #2 [facility] [place] [address] 04/22/2025 10:30 AM CDT Office Visit [facility] Medical Group - Family Medicine - [place] #[address] [place] [place] [address] Theodora Berry, ELECTRICAL FITTER, RESEARCH ASST 2 [facility] [place] [facility]. [address] [place] [address] documented as of this encounter Visit Diagnoses Not on filedocumented in this encounter Additional Health Concerns Infection Onset Date Last Indicated Resolved Time COVID - 19 09/03/2024 09/03/2024 09/03/2024 9:25 PM PLUSH FINISHER documented as of this encounter Care Teams Lean Process Deployment Consultant Relationship Specialty Start Date End Date Winifred Armstrong, ELECTRICAL FITTER, RESEARCH ASST [address] [place] [address] PCP - General Advanced Practice Nurse 10/17/19 iMcky Dickson MD [address] [place] [address] [address]STR[address] [place] [address] PCP - General Family Medicine 09/25/23 07/04/24 Silva Vicente MD [address] [place] [address] [address] CASTRO [address] [place] [address] PCP - General Family Medicine 07/05/24 12/29/24 Manisha Galeas MD [address] [place] [address] [address] CASTRO [address] [place] [address] PCP - General Family Medicine 12/30/24 01/20/25 Theodora Berry APRN, RESEARCH ASST [address] [address] PCP - General Advanced Practice Nurse 01/21/25 Mac Sher MD #2 [place] [address] Consulting Physician Neurology 09/15/15 Robert Mae MD #2 [place] [address] Consulting Physician Pulmonary Disease 10/27/22 Maryann El APRN, DEVELOPMENT COORDINATOR #2 [place] [address] Nurse Practitioner Advanced Practice Nurse 12/21/22 Germania Navarro APRN, RESEARCH ASST #2 [place] [address] Nurse Practitioner Advanced Practice Nurse 10/04/23 Leny Morales MD #2 [place] [address] Consulting Physician Gastroenterology 01/19/23 documented as of this encounter
--- OUTSIDE RECORDS SUMMARY | 2025-03-26 09:15 | XMS_ITS | Encounter Summary ---
Author Organization [facility] Address [address] [facility] [place] [address] Phone Care Team Providers Care Resolution Agent Name Role Phone Mac Sher MD Unavailable [phone] Micky Dickson MD Primary Care Provider [phone] Robert Mae MD Unavailable Maryann El APRN, [facility] Unavailable + [phone] Germania Navarro APRN, MECHANICAL STRIPER Unavailable Leny Morales MD Unavailable [phone] Silva Vicente MD Primary Care Provider [phone] Manisha Galeas MD Primary Care Provider [phone] Theodora Berry AUTO HEATER MECHANIC, MECHANICAL STRIPER Primary Care Provider Reason for Visit * Reason Comments Medication Refill Encounter Details Date Type Department Care Team (Late st Contact Info) Description 09/29/2023 Refill [facility] - Gastroenterology - [place] #2 [place] [address] Joann Bowers Juana, PAC [address] [place], [place] [id number] Medication Refill Social History Tobacco Use Types [...] Monica Marcelo RN - 10/02/2023 2:24 PM NON LICENSED NUCLEAR PLANT OPERATOR Patient requesting refill too soon. Medication refused. LICENSED NUCLEAR PLANT OPERATOR documented in this encounter Plan of Treatment Upcoming Encounters Date Type Department Care Team (Late st Contact Info) Description 04/02/2025 10:30 AM CDT Office Visit [facility] PHYSICIAN GROUP UROLOGY #2 [place] [address] Sundar Tristan MD #2 [facility] [address] [place] [address] 04/03/2025 10:00 AM CDT Office Visit [facility] Medical Group - Gastroenterology [facility] #2 [place] [address] Feliberto Winston MD 2 [facility] [address] [place] [address] 04/03/2025 11:00 AM CDT Office Visit [facility] - Neurology - [place] #2 [place] [address] Maryann El APRN, AN EMPLOYEE SPONSOR OR ADVOCATE AND #2 [place] [address] 04/22/2025 10:30 AM CDT Office Visit [facility] - Family [facility] [place] #[address] [place] [address] Theodora Berry, CESAR, MECHANICAL STRIPER 2 [facility] [place] [facility] [address] [place] [address] documented as of this encounter Visit Diagnoses Not on filedocumented in this encounter Additional Health Concerns Infection Onset Date Last Indicated Resolved Time COVID - 19 09/03/2024 09/03/2024 09/03/2024 9:25 PM NON LICENSED NUCLEAR PLANT OPERATOR documented as of this encounter Care Teams Resolution Agent Relationship Specialty Start Date End Date Micky Dickson MD [address] [place] [address] [address] CASTRO [address] [place] [address] PCP - General Family Medicine 09/25/23 07/04/24 Silva Vicente MD [address] [place] [address] [place] [address] PCP - General Family Medicine 07/05/24 12/29/24 Manisha Galeas MD [address] [place] [address] [address] CASTRO [address] [place] [address] PCP - General Family Medicine 12/30/24 01/20/25 Theodora Berry, CESAR, MECHANICAL STRIPER [address] [place] [facility] [place] [address] PCP - General Advanced Practice Nurse 01/21/25 Mac Sher MD #[address] [place] [address] Consulting Physician Neurology 09/15/15 Robert Mae MD #2 [place] [address] Consulting Physician Pulmonary Disease 10/27/22 Maryann El APRN, AN EMPLOYEE SPONSOR OR ADVOCATE AND #2 [place] [address] Nurse Practitioner Advanced Practice Nurse 12/21/22 Germania Navarro APRN, MECHANICAL STRIPER #2 [place] [address] Nurse Practitioner Advanced Practice Nurse 10/04/23 Leny Morales MD #2 [place] [address] Consulting Physician Gastroenterology 01/19/23 documented as of this encounter
--- OUTSIDE RECORDS SUMMARY | 2025-03-26 09:15 | XMS_ITS | Encounter Summary ---
Author Organization [facility] Address [address] [place] [address] Phone Care Team Providers Care Sprayer Hand Name Role Phone Mac Sher MD Unavailable [phone] Micky Dickson MD Primary Care Provider [phone] Robert Mae MD Unavailable Maryann El APRN, SURVEILLANCE TECHNICIAN Unavailable + [phone] Germania Navarro APRN, MAC ARTIST Unavailable Leny Morales MD Unavailable [phone] Silva Vicente MD Primary Care Provider [phone] Manisha Galeas MD Primary Care Provider [phone] Theodora Berry WATER TAXI CAPTAIN, MAC ARTIST Primary Care Provider Reason for Visit * Reason Comments Medication Refill Encounter Details Date Type Department Care Team (Late st Contact Info) Description 06/15/2024 Refill [facility] - Gastroenterology - [place] #2 [place] [address] Germania Navarro APRN, MAC ARTIST #2 [place] [address] Medication Refill Social History Tobacco Use Types Packs/Day Years Used Date Smoking Tobacco: Former Cigarettes 0.5 25 Smokeless Tobacco: Never Comments:occassional Alcohol Use Standard Drinks/Week Comments Not Currently 0 (1 standard drink = 0.6 oz pur e alcohol) [facility] Utilities Answer Date Recorded In the past 12 months has e [employer], gas, oil, or water company threatened to [...] How often do you attend temple or hoahaoism serv ices? Patient declined 04/16/2024 Do you [...] medical care, and heating? Patient declined 04/16/2024 [facility] [place] of Occupat ional Health - Occupational Stress [...] any time in the past 12 m [facility], were you homeless or living in a group home (including now)? Patient declined 04/16/2024 Sexually [...] Description 04/02/2025 10:30 AM CDT Office Visit [facility] PHYSICIAN GROUP UROLOGY #2 [facility] [place] [address] Sundar Tristan MD #2 [facility] [address] [place] [address] 04/03/2025 10:00 AM CDT Office Visit [facility] - Gastroenterology - [place] #2 [facility] [place] [address] Feliberto Winston MD 2 [facility] [address] [place] [address] 04/03/2025 11:00 AM CDT [facility] - Neurology - [place] #2 [facility] [place] [address] Maryann El, WATER TAXI CAPTAIN, SURVEILLANCE TECHNICIAN #2 [place] [address] 04/22/2025 10:30 AM CDT Office Visit [facility] - Family Medicine - [place] #2 [facility] [place] [address] Theodora Berry, WATER TAXI CAPTAIN, MAC ARTIST 2 [facility]. [address] [place] [address] documented as of this encounter Visit Diagnoses Not on filedocumented in this encounter Additional Health Concerns Infection Onset Date Last Indicated Resolved Time COVID - 19 09/03/2024 09/03/2024 09/03/2024 9:25 PM FOOTWEAR SALES COORDINATOR documented as of this encounter Care Teams Sprayer Hand Relationship Specialty Start Date End Date Micky Dickson MD [address] [place] [address] [facility] [address] [place] [address] PCP - General Family Medicine 09/25/23 07/04/24 Silva Vicente MD 4 [facility] [address] [place] [address] PCP - General Family Medicine 07/05/24 12/29/24 Manisha Galeas MD 4 [facility] [address] [place] [address] PCP - General Family Medicine 12/30/24 01/20/25 Theodora Berry, CESAR, MAC ARTIST 2 [facility] [address] [place] [address] PCP - General Advanced Practice Nurse 01/21/25 Mac Sher MD #2 [place] [address] Consulting Physician Neurology 09/15/15 Robert Mae MD #2 [place] [address] Consulting Physician Pulmonary Disease 10/27/22 Maryann El, WATER TAXI CAPTAIN, SURVEILLANCE TECHNICIAN #2 [place] [address] Nurse Practitioner Advanced Practice Nurse 12/21/22 Germania Navarro APRN, MAC ARTIST #2 [place] [address] Nurse Practitioner Advanced Practice Nurse 10/04/23 Leny Morales MD #2 [place] [address] Consulting Physician Gastroenterology 01/19/23 documented as of this encounter
--- OUTSIDE RECORDS SUMMARY | 2025-03-26 09:15 | XMS_ITS | Encounter Summary ---
Author Organization [facility] Address [address] [place] [address] Phone Care Team Providers Care Iron Worker Name Role Phone Mac Sher MD Unavailable [phone] Robert Mae MD Unavailable Maryann El APRN, FURNITURE MECHANIC Unavailable Germania Navarro APRN, COLLECTOR OF PORT Unavailable Leny Morales MD Unavailable [phone] Silva Vicente MD Primary Care Provider [phone] Manisha Galeas MD Primary Care Provider [phone] Theodora Berry AIRCRAFT LOADMASTER SUPERINTENDENT, COLLECTOR OF PORT Primary Care Provider Reason for Visit * Reason Comments Medication Refill Encounter Details Date Type Department Care Team (Late st Contact Info) Description 09/18/2024 [facility]ill [facility]ology - [place] #2 [place] [phone] Germania Navarro APRN, COLLECTOR OF PORT #2 [place] [address] Medication Refill Social History Tobacco Use Types Packs/Day Years Used Date Smoking Tobacco: Former Cigarettes 0.5 25 Smokeless Tobacco: Never Comments:occassional Alcohol Use Standard Drinks/Week Comments Not Currently 0 (1 standard drink = 0.6 oz pur e alcohol) [facility] Utilities Answer Date Recorded In the [...] declined 04/16/2024 How often do you attend taoist or latter day serv ices? Patient declined 04/16/2024 Do you belong to any clubs o r organizations such as taoist groups, unions, fraternal or athletic groups, or [...] medical care, and heating? Patient declined 04/16/2024 [facility] [place] of Occupat ional Health - Occupational Stress [...] any time in the past 12 [facility], were you homeless or living in a [place] health care facility (including now)? Patient declined 04/16/2024 Sexually Active [...] Monica Marcelo RN - 09/23/2024 8:34 AM STAFF HOME THERAPY RN Medication refilled and signed per [facility] chronic medication standing order for pediatric and adult patients. F HOME THERAPY RN documented in this encounter Plan of Treatment Upcoming Encounters Date Type Department Care Team (Late st Contact Info) Description 04/02/2025 10:30 AM CDT Office Visit [facility] #2 [place] [address] Sundar Tristan MD #2 [facility] [address] [place] [address] 04/03/2025 10:00 AM CDT Office Visit [facility] - [facility]ology - [place] #2 [place] [address] Feliberto Winston MD 2 [facility] [place] [facility] [address] [place] [address] 04/03/2025 11:00 AM CDT [facility] [place] [facility]2 [facility] [place] [address] Maryann El, AIRCRAFT LOADMASTER SUPERINTENDENT, FURNITURE MECHANIC #2 [place] [address] 04/22/2025 10:30 AM CDT Office Visit [facility] - Family Medicine - [place] #2 [facility] [place] [address] Theodora Berry, AIRCRAFT LOADMASTER SUPERINTENDENT, COLLECTOR OF PORT 2 [facility]. [address] [place] [address] documented as of this encounter Visit Diagnoses Not on filedocumented in this encounter Care Teams Iron Worker Relationship Specialty Start Date End Date Silva Vicente MD [address] [facility] [address] [place] [address] PCP - General Family Medicine 07/05/24 12/29/24 Manisha Galeas MD [address] [place] [address] [address]STR[address] [place] [address] PCP - General Family Medicine 12/30/24 01/20/25 Theodora Berry, AIRCRAFT LOADMASTER SUPERINTENDENT, COLLECTOR OF PORT [address] [address] PCP - General Advanced Practice Nurse 01/21/25 Mac Sher MD #2 [place] [address] Consulting Physician Neurology 09/15/15 Robert Mae MD #2 [place] [address] Consulting Physician Pulmonary Disease 10/27/22 Maryann El APRN, FURNITURE MECHANIC #2 [place] [address] Nurse Practitioner Advanced Practice Nurse 12/21/22 Germania Navarro APRN, COLLECTOR OF PORT #2 [place] [address] Nurse Practitioner Advanced Practice Nurse 10/04/23 Leny Morales MD #2 [place] [address] Consulting Physician Gastroenterology 01/19/23 documented as of this encounter
--- OUTSIDE RECORDS SUMMARY | 2025-03-26 09:15 | XMS_ITS | Encounter Summary ---
Author Organization [facility] Address [address] [place] [address] Phone Care Team Providers Care Idea Worker Name Role Phone Mac Sher MD Unavailable Winifred Armstrong PATTERNMAKER HELPER, TECHNICAL HEALTHCARE CONSULTANT Primary Care Provider Micky Dickson MD Primary Care Provider [phone] Robert Mae MD Unavailable Maryann El APRN, [facility] Unavailable + [phone] Germania Navarro APRN, TECHNICAL HEALTHCARE CONSULTANT Unavailable Leny Morales MD Unavailable [phone] Silva Vicente MD Primary Care Provider [phone] Manisha Galeas MD Primary Care Provider [phone] Theodora Berry PATTERNMAKER HELPER, TECHNICAL HEALTHCARE CONSULTANT Primary Care Provider [phone] Reason for Visit * Reason Comments Medication Refill Encounter Details Date Type Department Care Team (Late st Contact Info) Description 04/01/2022 Refill [facility] Medical [facility] - [facility] #2 [place] [address] Mac Sher MD #2 [place] [address] Medication Refill Social History Tobacco Use Types [...] Description 04/02/2025 10:30 AM CDT Office Visit [facility] #2 [place] [address] Sundar Tristan MD #2 [facility] [address] [place] [address] 04/03/2025 10:00 AM CDT Office Visit [facility] - Gastroenterology - [place] #2 [place] [address] Feliberto Winston MD 2 [facility] [address] [place] [address] 04/03/2025 11:00 AM CDT [facility] - [place] #2 [place] [address] Maryann El APRN, LOCAL COMPANY TANKER DRIVER #2 [facility] [place] [address] 04/22/2025 10:30 AM CDT Office Visit [facility] - Family [facility] - [place] #[address] [place] [address] Theodora Berry, PATTERNMAKER HELPER, TECHNICAL HEALTHCARE CONSULTANT [address] [facility] [facility] [address] [place] [address] documented as of this encounter Visit Diagnoses Not on filedocumented in this encounter Additional Health Concerns Infection Onset Date Last Indicated Resolved Time COVID - 19 09/03/2024 09/03/2024 09/03/2024 9:25 PM EXPRESSIVE ART THERAPIST documented as of this encounter Care Teams Idea Worker Relationship Specialty Start Date End Date Winifred Armstrong APRN, TECHNICAL HEALTHCARE CONSULTANT [address] [place] [address] PCP - General Advanced Practice Nurse 10/17/19 Micky Dickson MD [address] [place] [address] DR [address] [place] [address] PCP - General Family Medicine 09/25/23 07/04/24 Silva Vicente MD [address] [place] [address] [place] [address] PCP - General Family Medicine 07/05/24 12/29/24 Manisha Galeas MD [address] [place] [address] [place] [address] PCP - General Family Medicine 12/30/24 01/20/25 Theodora Berry, PATTERNMAKER HELPER, TECHNICAL HEALTHCARE CONSULTANT 2 [place] [facility] [address] [place] [address] PCP - General Advanced Practice Nurse 01/21/25 Mac Sher MD #2 [place] [address] Consulting Physician Neurology 09/15/15 Robert Mae MD #2 [place] [address] Consulting Physician Pulmonary Disease 10/27/22 Maryann El APRN, LOCAL COMPANY TANKER DRIVER #2 [place] [address] Nurse Practitioner Advanced Practice Nurse 12/21/22 Germania Navarro APRN, TECHNICAL HEALTHCARE CONSULTANT #2 [place] [address] Nurse Practitioner Advanced Practice Nurse 10/04/23 Leny Morales MD #2 [place] [address] Consulting Physician Gastroenterology 01/19/23 documented as of this encounter
--- OUTSIDE RECORDS SUMMARY | 2025-03-26 09:15 | XMS_ITS | Encounter Summary ---
Author Organization [facility] Address [address] [place] [address] Phone Care Team Providers Care Lacquer Pin Press Operator Name Role Phone Mac Sher MD Unavailable Winifred Armstrong DSP ENGINEER, CLEANER AND PREPARER Primary Care Provider Micky Dickson MD Primary Care Provider [phone] Robert Mae MD Unavailable Maryann El APRN, [facility] Unavailable + [phone] Germania Navarro APRN, CLEANER AND PREPARER Unavailable Leny Morales MD Unavailable [phone] Silva Vicente MD Primary Care Provider [phone] Manisha Galeas MD Primary Care Provider [phone] Theodora Berry DSP ENGINEER, CLEANER AND PREPARER Primary Care Provider [phone] Reason for Visit * Reason Comments Medication Refill Encounter Details Date Type Department Care Team (Late st Contact Info) Description 07/13/2023 Refill [facility] - Neurology [facility] #2 [place] [address] Mac Sher MD #2 [place] [address] Medication Refill Social History Tobacco Use Types [...] Dept 05/26/23 Procedure Visit Mac Sher MD [facility] 05/09/23 Telemedicine Mac Sher MD [facility] 03/01/23 Procedure Visit Mac Sher MD [facility] 02/20/23 Office Visit Maryann El APRN, DIAL SCREW ASSEMBLER [facility] 12/21/22 Office Visit Maryann El APRN, LEVAR [facility] 12/09/22 Procedure Visit Mac Sher MD [facility] Neurology [place] 09/02/22 Procedure Visit Mac Sher MD [facility] Neurology [facility] Showing recent visits within past 365 days and meeting all other requirements Future Appointments Date Type Provider Dept 08/25/23 Appointment Mac Sher MD [facility] Neurology [place] Showing future appointments within next 90 days and meeting all other requirements documented in this encounter Plan of Treatment Upcoming Encounters Date Type Department Care Team (Late st Contact Info) Description 04/02/2025 10:30 AM CDT Office Visit [facility] [place] #2 [facility] [address] Sundar Tristan MD #2 [facility] [address] [place] [address] 04/03/2025 10:00 AM CDT Office Visit [facility] - Gastroenterology - [place] #2 [place] [address] Feliberto Winston MD 2 [facility] [address] [place] [address] 04/03/2025 11:00 AM CDT Office Visit [facility] - Neurology - [place] #2 [place] [address] Maryann El APRN, DIAL SCREW ASSEMBLER #2 [place] [address] 04/22/2025 10:30 AM CDT Office Visit [facility] Medical [facility] - Family Medicine - [place] #2 [place] [address] Theodora Berry, DSP ENGINEER, CLEANER AND PREPARER 2 [facility] [address] [place] [address] documented as of this encounter Visit Diagnoses Not on filedocumented in this encounter Additional Health Concerns Infection Onset Date Last Indicated Resolved Time COVID - 19 09/03/2024 09/03/2024 09/03/2024 9:25 PM CONSULTANT EDUCATION documented as of this encounter Care Teams Lacquer Pin Press Operator Relationship Specialty Start Date End Date Winifred Armstrong APRN, CLEANER AND PREPARER [address] [place] [address] PCP - General Advanced Practice Nurse 10/17/19 Micky Dickson MD 4 [facility] [address] [place] [address] PCP - General Family Medicine 09/25/23 07/04/24 Silva Vicente MD 4 [facility] [address] [place] [address] PCP - General Family Medicine 07/05/24 12/29/24 Manisha Galeas MD [address] [place] [address] DR [address] [place] [address] PCP - General Family Medicine 12/30/24 01/20/25 Theodora Berry APRN, CLEANER AND PREPARER 2 [facility] [address] [address] PCP - General Advanced Practice Nurse 01/21/25 Mac Sher MD #2 [place] [address] Consulting Physician Neurology 09/15/15 Robert Mae MD #2 [place] [address] Consulting Physician Pulmonary Disease 10/27/22 Maryann El APRN, DIAL SCREW ASSEMBLER #2 [place] [address] Nurse Practitioner Advanced Practice Nurse 12/21/22 Germania Navarro APRN, CLEANER AND PREPARER #2 [place] [address] Nurse Practitioner Advanced Practice Nurse 10/04/23 Leny Morales MD #2 [place] [address] Consulting Physician Gastroenterology 01/19/23 documented as of this encounter
--- OUTSIDE RECORDS SUMMARY | 2025-03-26 09:15 | XMS_ITS | Encounter Summary ---
Author Organization [facility] Address [address] [place] [address] Phone Care Team Providers Care Bander Operator Name Role Phone Mac Sher MD Unavailable Winifred Armstrong MOLD MECHANIC, DENTAL OFFICE COORDINATOR Primary Care Provider Micky Dickson MD Primary Care Provider [phone] Robert Mae MD Unavailable Maryann El APRN, [facility] Unavailable + [phone] Germania Navarro APRN, DENTAL OFFICE COORDINATOR Unavailable Leny Morales MD Unavailable [phone] Silva Vicente MD Primary Care Provider [phone] Manisha Galeas MD Primary Care Provider [phone] Theodora Berry MOLD MECHANIC, DENTAL OFFICE COORDINATOR Primary Care Provider [phone] Reason for Visit * Reason Comments Medication Refill Encounter Details Date Type Department Care Team (Late st Contact Info) Description 08/24/2021 Refill [facility] Medical [facility] - Neurology [facility] #2 [place] [address] Maryann El APRN, CUSTOMER TECHNICAL SERVICES MANAGER #2 [place] [address] Medication Refill Social History Tobacco Use Types [...] 10:30 AM CDT Office Visit [facility] #2 [place] [address] Sundar Tristan MD #2 [facility] [address] [place] [address] 04/03/2025 10:00 AM CDT Office Visit [facility] - Gastroenterology - [place] #2 [place] [address] Feliberto Winston MD 2 [facility] [address] [place] [address] 04/03/2025 11:00 AM CDT [facility] - [place] #2 [place] [address] Maryann El APRN, CUSTOMER TECHNICAL SERVICES MANAGER #2 [place] [address] 04/22/2025 10:30 AM CDT Office Visit [facility] - Family [facility] - [place] #[address] [place] [address] Theodora Berry, CESAR, DENTAL OFFICE COORDINATOR 2 [place] [facility] [address] [place] [address] documented as of this encounter Visit Diagnoses Diagnosis Intractable chronic migraine without aura and with status migrainosus Chronic migraine without aura, with intractable migraine, so stated, with status migrainosus Essential tremor Essential and other specified forms of tremor documented in this encounter Additional Health Concerns Infection Onset Date Last Indicated Resolved Time COVID - 19 09/03/2024 09/03/2024 09/03/2024 9:25 PM PUBLIC HEALTH documented as of this encounter Care Teams Bander Operator Relationship Specialty Start Date End Date Winifred Armstrong APRN, DENTAL OFFICE COORDINATOR [address] [place] [address] PCP - General Advanced Practice Nurse 10/17/19 Micky Dickson MD [address] [place] [address] [address] [place] [address] PCP - General Family Medicine 09/25/23 07/04/24 Silva Vicente MD [address] [place] [address] [address] [place] [address] PCP - General Family Medicine 07/05/24 12/29/24 Manisha Galeas MD [address] [place] [address] [address] [place] [address] PCP - General Family Medicine 12/30/24 01/20/25 Theodora Berry, CESAR, DENTAL OFFICE COORDINATOR 2 [facility] [address] [address] PCP - General Advanced Practice Nurse 01/21/25 Mac Sher MD #2 [place] [address] Consulting Physician Neurology 09/15/15 Robert Mae MD #2 [place] [address] Consulting Physician Pulmonary Disease 10/27/22 Maryann El APRN, CUSTOMER TECHNICAL SERVICES MANAGER #2 [place] [address] Nurse Practitioner Advanced Practice Nurse 12/21/22 Germania Navarro APRN, DENTAL OFFICE COORDINATOR #2 [place] [address] Nurse Practitioner Advanced Practice Nurse 10/04/23 Leny Morales MD #2 [place] [address] Consulting Physician Gastroenterology 01/19/23 documented as of this encounter
--- OUTSIDE RECORDS SUMMARY | 2025-03-26 09:15 | XMS_ITS | Encounter Summary ---
Author Organization [facility] Address [address] [place] [address] Phone Care Team Providers Care Summer Law Clerk Name Role Phone Mac Sher MD Unavailable Winifred Armstrong CLASSIFYING MACHINE OPERATOR, MIRROR DEPARTMENT SUPERVISOR Primary Care Provider Micky Dickson MD Primary Care Provider [phone] Robert Mae MD Unavailable Maryann El APRN, [facility] Unavailable + [phone] Germania Navarro APRN, MIRROR DEPARTMENT SUPERVISOR Unavailable Leny Morales MD Unavailable [phone] Silva Vicente MD Primary Care Provider [phone] Manisha Galeas MD Primary Care Provider [phone] Theodora Berry CLASSIFYING MACHINE OPERATOR, MIRROR DEPARTMENT SUPERVISOR Primary Care Provider [phone] Reason for Visit * Reason Comments Medication Refill Encounter Details Date Type Department Care Team (Late st Contact Info) Description 07/19/2023 Refill [facility] - [facility]ology - [place] #2 [place] [address] Leny Morales MD #2 [place] [address] Medication Refill Social History Tobacco Use Types [...] AM CDT Medication [facility] for pediatric and adult patients. documented in this encounter Plan of Treatment Upcoming Encounters Date Type Department Care Team (Late st Contact Info) Description 04/02/2025 10:30 AM CDT Office Visit [facility] #2 [place] [address] Sundar Tristan MD #2 [facility] [address] [place] [address] 04/03/2025 10:00 AM CDT Office Visit [facility] - Gastroenterology [facility] #2 [place] [address] Feliberto Winston MD 2 [facility] [address] [place] [address] 04/03/2025 11:00 AM CDT [facility] - [place] #2 [place] [address] Maryann El, CLASSIFYING MACHINE OPERATOR, CARTOON ARTIST #[address] [place] [address] 04/22/2025 10:30 AM CDT Office Visit [facility] - Family Medicine - [place] #2 [address] [place] [address] Theodora Berry, CLASSIFYING MACHINE OPERATOR, MIRROR DEPARTMENT SUPERVISOR 2 [facility] [place]. [address] [place] [address] documented as of this encounter Visit Diagnoses Not on filedocumented in this encounter Additional Health Concerns Infection Onset Date Last Indicated Resolved Time COVID - 19 09/03/2024 09/03/2024 09/03/2024 9:25 PM GAME SHOW HOST documented as of this encounter Care Teams Summer Law Clerk Relationship Specialty Start Date End Date Winifred Armstrong, CLASSIFYING MACHINE OPERATOR, MIRROR DEPARTMENT SUPERVISOR [address] [place] [address] PCP - General Advanced Practice Nurse 10/17/19 Micky Dickson MD [address] [place] [address] [address] [place] [address], [place] [address] PCP - General Family Medicine 09/25/23 07/04/24 Silva Vicente MD [address] [place] [address] [place] [address] PCP - General Family Medicine 07/05/24 12/29/24 Manisha Galeas MD [address] [place] [address] [place] [address] PCP - General Family Medicine 12/30/24 01/20/25 Theodora Berry, CESAR, MIRROR DEPARTMENT SUPERVISOR [address] [address] PCP - General Advanced Practice Nurse 01/21/25 Mac Sher MD #2 [place] [address] Consulting Physician Neurology 09/15/15 Robert Mae MD #2 [place] [address] Consulting Physician Pulmonary Disease 10/27/22 Maryann El APRN, CARTOON ARTIST #2 [place] [address] Nurse Practitioner Advanced Practice Nurse 12/21/22 Germania Navarro APRN, MIRROR DEPARTMENT SUPERVISOR #2 [place] [address] Nurse Practitioner Advanced Practice Nurse 10/04/23 Leny Morales MD #2 [place] [address] Consulting Physician Gastroenterology 01/19/23 documented as of this encounter
--- OUTSIDE RECORDS SUMMARY | 2025-03-26 09:15 | XMS_ITS | Encounter Summary ---
Author Organization [facility] Address [address] [place] [address] Phone Care Team Providers Care Supervisor Dock Name Role Phone Mac Sher MD Unavailable Winifred Armstrong RELIEF MATE, BUSINESS LINE CONTROLLER Primary Care Provider Micky Dickson MD Primary Care Provider [phone] Robert Mae MD Unavailable Maryann El APRN, [facility] Unavailable + [phone] Germania Navarro APRN, BUSINESS LINE CONTROLLER Unavailable Leny Morales MD Unavailable [phone] Silva Vicente MD Primary Care Provider [phone] Manisha Galeas MD Primary Care Provider [phone] Theodora Berry RELIEF MATE, BUSINESS LINE CONTROLLER Primary Care Provider Reason for Visit * Reason Comments Medication Refill Encounter Details Date Type Department Care Team (Late st Contact Info) Description 07/15/2023 [facility]ill [facility] - Gastroenterology - [place] #2 [place] [address] Germania Navarro APRN, BUSINESS LINE CONTROLLER #2 [place] [address] Medication Refill Social History Tobacco Use Types [...] Description 04/02/2025 10:30 AM CDT Office Visit [facility] #2 [place] [address] Sundar Tristan MD #2 [facility] [address] [place] [address] 04/03/2025 10:00 AM CDT Office Visit [facility] - Gastroenterology [facility] #2 [place] [address] Feliberto Winston MD 2 [facility] [address] [place] [address] 04/03/2025 11:00 AM CDT [facility] [place] #2 [address] [facility] [place] [address] Maryann El, RELIEF MATE, SUPERVISOR RESPIRATORY #2 [place] [address] 04/22/2025 10:30 AM CDT Office Visit [facility] - Family Medicine - [place] #[address] [place] [facility] [place] [address] Theodora Berry, RELIEF MATE, BUSINESS LINE CONTROLLER 2 [facility] [place] [facility]. 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 documented as of this encounter Care Teams Supervisor Dock Relationship Specialty Start Date End Date Winifred Armstrong, RELIEF MATE, BUSINESS LINE CONTROLLER [address] [place] [address] PCP - General Advanced Practice Nurse 10/17/19 Micky Dickson MD [address] [place] [address] [address] [place] [address] PCP - General Family Medicine 09/25/23 07/04/24 Silva Vicente MD [address] [place] [address] [address] [place] [address] PCP - General Family Medicine 07/05/24 12/29/24 Manisha Galeas MD [address] [place] [address] [address] [place] [address] PCP - General Family Medicine 12/30/24 01/20/25 Theodora Berry APRN, BUSINESS LINE CONTROLLER [address] [address] PCP - General Advanced Practice Nurse 01/21/25 Mac Sher MD #2 [place] [address] Consulting Physician Neurology 09/15/15 Robert Mae MD #2 [place] [address] Consulting Physician Pulmonary Disease 10/27/22 Maryann El APRN, SUPERVISOR RESPIRATORY #2 [place] [address] Nurse Practitioner Advanced Practice Nurse 12/21/22 Germania Navarro APRN, BUSINESS LINE CONTROLLER #[address] [place] [address] Nurse Practitioner Advanced Practice Nurse 10/04/23 Leny Morales MD #2 [place] [address] Consulting Physician Gastroenterology 01/19/23 documented as of this encounter
--- OUTSIDE RECORDS SUMMARY | 2025-03-26 09:15 | XMS_ITS | Encounter Summary ---
Author Organization [facility] Address [address] [place] [address] Phone Care Team Providers Care Oil Field Equipment Mechanic Supervisor Name Role Phone Mac Sher MD Unavailable Winifred Armstrong DEPARTMENT OF MATHEMATICS CHAIR, DISASTER OR DAMAGE CONTROL SPECIALIST Primary Care Provider Micky Dickson MD Primary Care Provider Robert Mae MD Unavailable Maryann El APRN, [facility] Unavailable + [phone] Germania Navarro APRN, DISASTER OR DAMAGE CONTROL SPECIALIST Unavailable Leny oMrales MD Unavailable [phone] Silva Vicente MD Primary Care Provider [phone] Manisha Galeas MD Primary Care Provider Theoodra Berry DEPARTMENT OF MATHEMATICS CHAIR, DISASTER OR DAMAGE CONTROL SPECIALIST Primary Care Provider [phone] Reason for Visit * Reason Comments Medication Refill Encounter Details Date Type Department Care Team (Late st Contact Info) Description 08/04/2021 [facility]ill [facility] - Gastroenterology - [place] #2 [place] [address] Joann Bowers March, PAC [address] [place] [address] Medication Refill Social History Tobacco Use Types [...] 10:30 AM CDT Office Visit [facility] #2 [place] [address] Sundar Tristan MD #2 [facility] [address] [place] [address] 04/03/2025 10:00 AM CDT Office Visit [facility] - Gastroenterology - [place] #2 [facility] [place] [address] Feliberto Winston MD 2 [facility] [address] [place] [address] 04/03/2025 11:00 AM CDT [facility] - [place] #2 [place] [address] Maryann El APRN, CONTENT ARCHITECT #2 [place] [address] 04/22/2025 10:30 AM CDT Office Visit [facility] - Family Medicine - [place] #2 [place] [address] Theodora Berry, DEPARTMENT OF MATHEMATICS CHAIR, DISASTER OR DAMAGE CONTROL SPECIALIST 2 [facility] [address] [place] [address] documented as of this encounter Visit Diagnoses Diagnosis Irritable bowel syndrome with both constipation and diarrhea documented in this encounter Additional Health Concerns Infection Onset Date Last Indicated Resolved Time COVID - 19 09/03/2024 09/03/2024 09/03/2024 9:25 PM GUARDIAN AD LITEM documented as of this encounter Care Teams Oil Field Equipment Mechanic Supervisor Relationship Specialty Start Date End Date Winifred Armstrong APRN, DISASTER OR DAMAGE CONTROL SPECIALIST [address] [place] [address] PCP - General Advanced Practice Nurse 10/17/19 Micky Dickson MD [address] [facility] [address] [place] [address] PCP - General Family Medicine 09/25/23 07/04/24 Silva Vicente MD [address] [facility] [address] [place] [address] PCP - General Family Medicine 07/05/24 12/29/24 Manisha Galeas MD [address] [facility] [address] [place] [address] PCP - General Family Medicine 12/30/24 01/20/25 Theodora Berry APRN, DISASTER OR DAMAGE CONTROL SPECIALIST 2 [facility] [address] [address] PCP - General Advanced Practice Nurse 01/21/25 Mac Sher MD #2 [place] [address] Consulting Physician Neurology 09/15/15 Robert Mae MD #2 [place] [address] Consulting Physician Pulmonary Disease 10/27/22 Maryann El APRN, CONTENT ARCHITECT #2 [place] [address] Nurse Practitioner Advanced Practice Nurse 12/21/22 Germania Navarro APRN, DISASTER OR DAMAGE CONTROL SPECIALIST #2 [place] [address] Nurse Practitioner Advanced Practice Nurse 10/04/23 Leny Morales MD #[address] [place] [address] Consulting Physician Gastroenterology 01/19/23 documented as of this encounter
--- OUTSIDE RECORDS SUMMARY | 2025-03-26 09:15 | XMS_ITS | Encounter Summary ---
Author Organization [facility] Address [address] [place] [address] Phone Care Team Providers Care Programming Coordinator Name Role Phone Mac Sher MD Unavailable [phone] Robert Mae MD Unavailable Maryann El APRN, SAUSAGE SMOKER Unavailable Germania Navarro APRN, PERFORATOR Unavailable Leny Morales MD Unavailable [phone] Silva Vicente MD Primary Care Provider [phone] Manisha Galeas MD Primary Care Provider [phone] Theodora Berry DECAY CONTROL OPERATOR, PERFORATOR Primary Care Provider Reason for Visit * Reason Comments Medication Refill Encounter Details Date Type Department Care Team (Late st Contact Info) Description 07/23/2024 Refill [facility] - Gastroenterology - [place] #2 [place] [address] Germania Navarro APRN, PERFORATOR #2 [place] [address] Medication Refill Social History Tobacco Use Types Packs/Day Years Used Date Smoking Tobacco: Former Cigarettes 0.5 25 Smokeless Tobacco: Never Comments:occassional Alcohol Use Standard Drinks/Week Comments Not Currently 0 (1 standard drink = 0.6 oz pur e alcohol) [facility] Utilities Answer Date Recorded In the [...] declined 04/16/2024 How often do you attend alevism or christianity serv ices? Patient declined 04/16/2024 Do you belong to any clubs o r organizations such as alevism groups, unions, fraternal or athletic groups, or [...] medical care, and heating? Patient declined 04/16/2024 [facility] of Occupat ional Health - Occupational Stress [...] any time in the past 12 m [facility], were you homeless or living in a snf (including now)? Patient declined 04/16/2024 Sexually Active [...] Visit [facility] #2 [place] [address] Sundar Tristan MD #2 [facility] [address] [place] [address] 04/03/2025 10:00 AM CDT [facility] [place] #2 [place] [address] Feliberto Winston MD 2 [facility] [address] [place] [address] 04/03/2025 11:00 AM CDT [facility] [place] #2 [place] [address] Maryann El, DECAY CONTROL OPERATOR, SAUSAGE SMOKER #2 [place] [address] 04/22/2025 10:30 AM CDT [facility] - [place] #2 [place] [address] Theodora Berry, DECAY CONTROL OPERATOR, PERFORATOR 2 [facility]. [address] [place] [address] documented as of this encounter Visit Diagnoses Not on filedocumented in this encounter Additional Health Concerns Infection Onset Date Last Indicated Resolved Time COVID - 19 09/03/2024 09/03/2024 09/03/2024 9:25 PM EMAIL MARKETING COORDINATOR documented as of this encounter Care Teams Programming Coordinator Relationship Specialty Start Date End Date Silva Vicente MD 4 [facility] [address] [place] [address] PCP - General Family Medicine 07/05/24 12/29/24 Manisha Galeas MD [address] [place] [address] [address] [place] [address] PCP - General Family Medicine 12/30/24 01/20/25 Theodora Berry, DECAY CONTROL OPERATOR, PERFORATOR 2 [facility] [address] [place] [address] PCP - General Advanced Practice Nurse 01/21/25 Mac Sher MD #[address] [place] [address] Consulting Physician Neurology 09/15/15 Robert Mae MD #[address] [place] [address] Consulting Physician Pulmonary Disease 10/27/22 Maryann El APRN, SAUSAGE SMOKER #[address] [place] [address] Nurse Practitioner Advanced Practice Nurse 12/21/22 Germania Navarro APRN, PERFORATOR #2 [place] [address] Nurse Practitioner Advanced Practice Nurse 10/04/23 Leny Morales MD #2 [place] [address] Consulting Physician Gastroenterology 01/19/23 documented as of this encounter
--- OUTSIDE RECORDS SUMMARY | 2025-03-26 09:15 | XMS_ITS | Encounter Summary ---
Author Organization [facility] Address [address] [place] [address] Phone Care Team Providers Care Insurance Business Analyst Name Role Phone Mac Sher MD Unavailable [phone] Robert Mae MD Unavailable Maryann El APRN, CLIENT ACCOUNT REPRESENTATIVE Unavailable Germania Navarro APRN, COUNTER TACKER Unavailable Leny Morales MD Unavailable [phone] Silva Vicente MD Primary Care Provider [phone] Manisha Galeas MD Primary Care Provider [phone] Theodora Berry CLAY GRINDER, COUNTER TACKER Primary Care Provider Reason for Visit * Reason Comments Medication Refill Encounter Details Date Type Department Care Team (Late st Contact Info) Description 11/08/2024 Refill [facility] - Gastroenterology - [place] #2 [place] [address] Germania Navarro APRN, COUNTER TACKER #2 [place] [address] Medication Refill Social History Tobacco Use Types Packs/Day Years Used Date Smoking Tobacco: Former Cigarettes 0.5 25 Smokeless Tobacco: Never Comments:occassional Alcohol Use Standard Drinks/Week Comments Not Currently 0 (1 standard drink = 0.6 oz pur e alcohol) [facility] Utilities Answer Date Recorded In [...] declined 04/16/2024 How often do you attend religious or caodaism serv ices? Patient declined 04/16/2024 Do you belong to any clubs o r organizations such as religious groups, unions, fraternal or athletic groups, or [...] medical care, and heating? Patient declined 04/16/2024 [facility] [place] of Occupat ional Health - Occupational Stress [...] any time in the past 12 m [facility], were you homeless or living [...] Monica Marcelo RN - 11/08/2024 11:56 AM NANNY/HOUSEHOLD MANAGER Medication refilled and signed per [facility] chronic medication standing order for pediatric and adult patients. Y/HOUSEHOLD MANAGER documented in this encounter Plan of Treatment Upcoming Encounters Date Type Department Care Team (Late st Contact Info) Description 04/02/2025 10:30 AM CDT Office Visit [facility] #2 [place] [address] Sundar Tristan MD #2 [facility] [address] [place] [address] 04/03/2025 10:00 AM CDT Office Visit [facility] - Gastroenterology - [place] #2 [place] [address] Feliberto Winston MD 2 [facility] [address] [place] [address] 04/03/2025 11:00 AM CDT [facility] [place] [facility]2 [facility] [place] [address] Maryann El, CLAY GRINDER, CLIENT ACCOUNT REPRESENTATIVE #2 [place] [address] 04/22/2025 10:30 AM CDT Office Visit [facility] - Family Medicine - [place] #2 [facility] [place] [address] Theodora Berry, CLAY GRINDER, COUNTER TACKER 2 [facility]. [address] [place] [address] documented as of this encounter Visit Diagnoses Not on filedocumented in this encounter Care Teams Insurance Business Analyst Relationship Specialty Start Date End Date Silva Vicente MD 4 [facility] [address] [place] [address] PCP - General Family Medicine 07/05/24 12/29/24 Manisha Galeas MD [address] [place] [address] [address] [place] [address] PCP - General Family Medicine 12/30/24 01/20/25 Theodora Berry, CLAY GRINDER, COUNTER TACKER [address] [address] PCP - General Advanced Practice Nurse 01/21/25 Mac Sher MD #2 [place] [address] Consulting Physician Neurology 09/15/15 Robert Mae MD #2 [place] [address] Consulting Physician Pulmonary Disease 10/27/22 Maryann El APRN, CLIENT ACCOUNT REPRESENTATIVE #2 [place] [address] Nurse Practitioner Advanced Practice Nurse 12/21/22 Germania Navarro APRN, COUNTER TACKER #2 [place] [address] Nurse Practitioner Advanced Practice Nurse 10/04/23 Leny Morales MD #2 [place] [address] Consulting Physician Gastroenterology 01/19/23 documented as of this encounter
[2025-03-26 09:19] VITALS: BP 111/76; PULSE 90; RESP 16; TEMP 36.6; O2SAT 97
[2025-03-26 09:46] LABS: EDCOVIDSCREEN Negative (Negative); EDINFLUASCREEN Negative (Negative); EDINFLUBSCREEN Negative (Negative); EDSTREPNEGPOS1 Negative (Negative)
== END 2025-03-26 10:13 | disposition home or self-care (01) ==
PROVIDERS: Emergency Provider Nurse Practitioner Family
DX: J06.9 Acute upper respiratory infection, unspecified (principal); Z20.822 Contact with and (suspected) exposure to COVID-19; Z87.891 Personal history of nicotine dependence; I10 Essential (primary) hypertension; J44.9 Chronic obstructive pulmonary disease, unspecified; F41.9 Anxiety disorder, unspecified; F32.A Depression, unspecified
CPT/HCPCS: 87081; 87426; 87804; 87880; 99213; G0463